=== PATIENT | female | born 1960 | race Caucasian/White ===

== ENCOUNTER 2022-06-12 10:00 | Outpatient (RCR) | payer OTHER, SELFPAY | END 2023-04-29 23:59 | disposition home or self-care (01) | PROVIDERS: PCP Nurse Practitioner Family; Visit Provider Orthopaedic Surgery | DX: M65.311 Trigger thumb, right thumb (principal); M54.32 Sciatica, left side; E66.9 Obesity, unspecified; Z51.89 Encounter for other specified aftercare | CPT/HCPCS: 97033; 97035; 97140; 97165 ==

== ENCOUNTER 2022-07-21 06:36 | Day surgery (SDC) | payer OTHER, SELFPAY ==
[2022-07-21 06:50] VITALS: BMI 41.3
[2022-07-21] MEDS: CEFAZOLIN 2 GM INJ IVP (06:59)
[2022-07-21 07:04] VITALS: BP 149/77; PULSE 63; RESP 16; TEMP 36.7; O2SAT 98
[2022-07-21 07:24] VITALS: BP 185/84; PULSE 64; RESP 16; O2SAT 97
[2022-07-21] MEDS: BUPIVACAINE 0.5% 30 ML INJECTION (07:25)
[2022-07-21] MEDS: lidocaine HCL 2 % MULTIDOSE 20 ML VIAL INJECTION (07:25)
[2022-07-21 07:30] VITALS: BP 175/85; PULSE 68; RESP 16; O2SAT 97
[2022-07-21 07:35] VITALS: BP 178/86; PULSE 76; RESP 16; O2SAT 97
[2022-07-21 07:40] VITALS: BP 173/83; PULSE 68; RESP 16; O2SAT 97
--- NOTE | 2022-07-21 07:49 | PM.ORPRC ---
Procedure Note Date of procedure: 07/21/22 Procedure: Preop diagnosis: Right thumb stenosing tenosynovitis Postop diagnosis: Right thumb stenosing tenosynovitis Procedure: Right thumb A1 mk release Anesthesia: Local Surgeon: John Guo MD special education educational assistant: Mona Chou PA-C EBL: 0 mL Complications: None Specimens: None Drains: None Preoperative antibiotics: None Indications: The patient has a history of right thumb painful catching and locking. Despite appropriate non operative management including flexor tendon sheath corticosteroid injections they continue to have symptoms. Operative intervention was recommended. The risks, benefits alternatives and expected outcomes were discussed in detail. These included but were not limited to: Infection, bleeding, injury to blood vessel or nerve, venous thromboembolism. All questions were answered to their satisfaction. The patient was placed supine on the operating room table. Local anesthesia was established with 0.5% Marcaine without epinephrine and 2% lidocaine without epinephrine. The hand was prepped and draped in usual sterile fashion. The limb was elevated the forearm pneumatic tourniquet was inflated to 250 mm of mercury. A transverse incision was made in the MP flexion crease of the thumb. Subcutaneous dissection was taken through the palmar fascia to the flexor tendons with the tenotomy scissors. The A1 mk was released with the 15 blade and the tenotomy scissors. The edges of the A1 mk were sharply resected. Active flexion and extension of the thumb shows no catching or locking, no bowstringing of the flexor tendons. The wound was closed with interrupted nylon sutures. A dry dressing was applied the tourniquet was released. Sponge and needle counts were correct x 2. The patient tolerated the procedure well, there were no apparent complications. They were sent to same day surgery in satisfactory condition. Plan: Use of the hand as tolerates. Discontinue the intraoperative dressing on postoperative day 3 and may get the wound wet as tolerates. Follow up in the office in 2 weeks for a wound check and suture removal.
[2022-07-21 07:57] VITALS: BP 146/70; PULSE 63; RESP 18; TEMP 37; O2SAT 96
== END 2022-07-21 08:05 | disposition home or self-care (01) ==
PROVIDERS: PCP Nurse Practitioner Family; Visit Provider Orthopaedic Surgery
PROC: (CPT 26055; principal; 2022-07-21 07:30)
DX: M65.841 Other synovitis and tenosynovitis, right hand (principal)
CPT/HCPCS: 26055; J0690; J3490

== ENCOUNTER 2022-07-27 09:08 | Outpatient (CLI) | payer OTHER, SELFPAY ==
--- OUTSIDE RECORDS SUMMARY | 2022-07-27 09:20 | XMS_ITS | Encounter Summary ---
:1960 Author Organization [facility] Address [address] [place] [address] Care Team Providers Name Role Phone None, Pcp Primary Care Provider Unavailable Encounter Details Date Type Department Care Team Description 12/19/2020 [facility] Family Medicine [address] [place] [address] Social History Tobacco Use Types Packs/Day Years Used Date Never Smoker Smokeless Tobacco: Never Used Alcohol Use Standard Drinks/Week Comments Not Asked 0 (1 standard drink = 0.6 oz pure alcoho l) Alcohol Habits Answer Date Recorded How often do you have a drink containing alcohol? Never 03/22/2020 How many drinks containing alcohol do you have on a typical Not asked day when you are drinking? How often do you have six or more drinks on one occasion? 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
--- OUTSIDE RECORDS SUMMARY | 2022-07-27 09:20 | XMS_ITS | Encounter Summary ---
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
--- OUTSIDE RECORDS SUMMARY | 2022-07-27 09:20 | XMS_ITS | Clinical Summary ---
:1960 Author Organization [facility] [employer] [facility] [place] [address] Care Team Providers Name Role Phone Pcp, No Primary Care Provider Unavailable Allergies Active Allergy Reactions Severity Noted Date Comments Amoxicillin-Pot Hives 12/10/2015 per external records Clavulanate Aspirin Other - Describe In 08/25/2019 Risk for Interaction Comment Field Risk for Inter action Lisinopril Cough 12/10/2015 Nsaids (Non-Steroidal Other - Describe In 07/11/2016 Anti-Inflammatory Drug) Comment Field Medications Medication Sig Dispensed Refills Start Date End Date Status atorvastatin Take 10 mg by mouth. 0 11/25/2019 Active (LIPITOR) 10 mg tablet chlorthalidone Take 50 mg by mouth. 0 11/25/2019 Active (HYGROTON) 50 mg tablet cholecalciferol Take 1 Cap by mouth. 0 2015 Active (VITAMIN D3) 2,000 unit capsule glipiZIDE (GLUCOTROL) Take 10 mg by mouth. 0 016 Active 10 mg tablet Insulin Admin 0 02/12/2015 Activ e Supplies inpn Insulin Admin 0 02/12/2015 Activ e Supplies (INPEN, FOR NOVOLOG OR FIASP,) inpn insulin aspart U-100 Inject 5 units 0 11/25/2019 Active (NOVOLOG FLEXPEN subcutaneously with U-100 INSULIN) 100 lunch and dinner unit/mL (3 mL) solution for injection insulin glargine Inject 38 Units 0 07/14/2019 Active (LANTUS) 100 unit/mL subcutaneous. injection insulin glargine 40 units at bedtime 0 04/14/2015 Active (LANTUS SOLOSTAR PEN; BASAGLAR KWIKPEN) 100 unit/mL (3 mL) pen loratadine (CLARITIN) if needed 0 Active 5 mg/5 mL liquid LORazepam (ATIVAN) Take 0.5 mg by 0 03/06/2020 Active 0.5 mg tab mouth. metoprolol succinate Take 50 mg by mouth. 0 08/08/20 16 Active (TOPROL XL) 50 mg sustained-release tablet SITagliptin (JANUVIA) Take 50 mg by mouth. 0 016 Active 50 mg tablet traZODone (DESYREL) Take 50 mg by mouth. 0 0 Active 50 mg tablet Active Problems No known active problems Social History Tobacco Use Types Packs/Day Years Used Date Former Smoker Cigarettes 0.25 2 Smokeless Tobacco: Never Used Tobacco Cessation: Counseling Given: Yes Alcohol Use Standard Drinks/Week Comments Not Currently 0 (1 standard drink = 0.6 oz pure alcoho l) Sex Assigned at Date Recorded Not on file Obstetrics History Last Filed Vital Signs Vital Sign Reading Time Taken Comments Blood Pressure 110/72 05/27/2020 10:44 AM CDT Pulse 57 05/27/2020 10:44 AM CDT Temperature 37.1 ??C (98.8 ??F) 03/29/2020 9:12 AM CDT Respiratory Rate 18 03/29/2020 9:12 AM CDT Oxygen Saturation 95% 05/27/2020 10:44 AM CDT Inhaled Oxygen Concentration - - Weight 96.1 kg (211 lb 12.8 oz) 05/27/2020 10:44 AM CDT Height - - Body Mass Index - - Plan of Treatment Health Maintenance Due Date Last Done Comments COVID-19 vaccine series (#1) 06/20/1962 Tdap 1972 Depression screening for age 12+ 1973 BMI (ht and wt on same day) for 12/19/1979 age 18+ Hepatitis C screening for age 0312/19/1979 18-79 Tetanus booster 1981 Colonoscopy through age 75 2006 Lipids for age 45-75 2006 Mammogram for age 45-75 2006 Zoster (shingles) series for age 0312/19/2011 50+ (1 of 2) Influenza for age 50-64 06/11/2022 Pap test for age 21-65 06/20/2023 06/20/2020, 06/20/2020, 03/23/2014, Additional history exists Results Not on filefrom Last 3 Months Insurance Payer Benefit Plan / Subscriber ID Effective Dates Phone Addre ss Type Group [employer] [id number] 2017-Present [address] [place] [address] Care Teams Anglesmith Relationship Specialty Start Date End Date Pcp, No PCP - General 03/29/20 .
--- OUTSIDE RECORDS SUMMARY | 2022-07-27 09:20 | XMS_ITS | Encounter Summary ---
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
--- OUTSIDE RECORDS SUMMARY | 2022-07-27 09:20 | XMS_ITS | Clinical Summary ---
:1960 Author Organization [facility] Address [address] [place] [address] Care Team Providers Name Role Phone Libby Cheema MD Primary Care Provider Allergies Active Allergy Reactions Severity Noted Date Comments Adhesive Tape Amoxicillin-Pot Clavulanate Aspirin 08/25/2019 Risk for Intera ction Ibuprofen Lisinopril Promethazine 11/21/2018 Clopidogrel 08/25/2019 Risk for Intera ction Medications Medication Sig Dispensed Refills Start Date End Date Status loratadine (CLARITIN) 5 if needed 0 Active MG/5ML syrup Blood Glucose Use to as directed to check blood sugar once daily. 1 kit 0 11/23/2018 Active Monitoring Suppl Dispense Accucheck Betsey Plus; E11.9 (ACCU-CHEK BETSEY PLUS) w/Device kitIndications: Type 2 diabetes mellitus without complication, with long-term current use of insulin (HCC) acetaminophen (TYLENOL) Take 1-2 tablets 0 6 Active 500 MG tablet by mouth every 6 (six) hours if needed cholecalciferol Take 1 capsule by 0 2015 Active (VITAMIN D-3) 2000 mouth daily units capsule Injection Device for 0 02/12/2015 Active Insulin (INPEN [id number]) device insulin glargine Inject 38 Units 40 mL 3 07/14/2019 Active (LANTUS) 100 UNIT/ML under the skin injectionIndications: every night Type 2 diabetes mellitus without complication, with long-term current use of insulin (HCC) Additional Information Patient taking differently: 40 Units Subcutaneous Nightly, Reported on 03/22/2020 insulin aspart (NovoLOG Inject 5 units 15 pen 3 11/25/2019 Active FLEXPEN) 100 UNIT/ML subcutaneously with injectionIndications: Type 2 lunch and dinner diabetes mellitus without complication, with long-term current use of insulin ([facility]) atorvastatin (LIPITOR) 10 MG Take 1 tablet (10 mg 90 tablet 3 11/25/2019 Active tabletIndications: total) by mouth 1 Hyperlipoproteinemia (one) time each day glipiZIDE (GLUCOTROL) 10 MG Take 1 tablet (10 mg 180 tablet 3 11/25/2019 Active tabletIndications: Type 2 total) by mouth twice diabetes mellitus without a day complication, with long-term current use of insulin ([facility]) metoprolol succinate XL Take 1 tablet (25 mg 90 tablet 3 11/25 Active (TOPROL-XL) 25 MG 24 hr total) by mouth 1 tabletIndications: Essential (one) time each day (primary) hypertension amLODIPine (NORVASC) 5 MG Take 1 tablet (5 mg 90 tablet 3 11/11 Active tabletIndications: Essential total) by mouth 1 hypertension (one) time each day SITagliptin (JANUVIA) 50 MG Take 1 tablet (50 mg 90 tablet 3 0 11/25/2019 Active tabletIndications: Type 2 total) by mouth 1 diabetes mellitus without (one) time each day complication, with long-term current use of insulin ([facility]) chlorthalidone (HYGROTON) 50 Take 1 tablet (50 mg 90 tablet 3 11/25/2019 Active MG tabletIndications: total) by mouth 1 Hypertension, unspecified type (one) time each day Additional Information Patient taking differently: 25 mg Oral Daily, Reported on 03/22/2020 metoprolol succinate XL Take 1 tablet (50 mg 90 tablet 3 11/25 Active (TOPROL-XL) 50 MG 24 hr total) by mouth 1 tabletIndications: Essential (one) time each day (primary) hypertension Do not crush or chew, in addition to the 25 mg daily, for a total of 75 mg daily traZODone (DESYREL) 50 MG Take 1 tablet (50 mg 180 tablet 3 Active tabletIndications: Insomnia, total) by mouth every unspecified type night Take 1 to 2 tabs by mouth as needed for sleep insulin glargine (LANTUS) 100 40 units at bedtime 12 pen 3 11/27/2019 Active UNIT/ML injectionIndications: Type 2 diabetes mellitus without complication, with long-term current use of insulin ([facility]) Insulin Pen Needle (Pen Use to check blood 200 each 3 020 Active [place]) 31G X 5 MM sugar twice daily. BD miscIndications: Type 2 Ultra-Fine III Mini diabetes mellitus without Pen Needle Dx: E11.9 complication, with long-term current use of insulin (HCC) Active Problems Problem Noted Date Localized edema 03/04/2017 Insomnia 01/05/2017 Anxiety disorder 08/13/2016 Major depressive disorder, single episode 08/13/2016 Hypertensive chronic kidney disease with stage 1 throu gh stage 4 chronic 03/17/2016 kidney disease, or unspecified chronic kidney disease Type 2 diabetes mellitus without complications 016 Disorder of kidney and ureter 11/14/2015 Essential (primary) hypertension 08/12/2015 Cervicalgia 05/10/2015 Hyperlipoproteinemia 05/01/2014 Encounters Date Type Specialty Care Team Description 07/04/2022 Immunization Family Medicine from Last 3 Months Immunizations Name Administration Dates Next Due COVID-19, mRNA, LNP-S, PF, 30mcg/0.3mL 08/05/2021, 1, 12/19/2020 dose Pfizer COVID-19, mRNA, LNP-S, bivalent booster 07/04/2022 12 yr and older, PF, 30mcg/0.3mL dose (pfizer) Flu Vaccine 50-64yrs Flublok (Egg Free) 08/02/2019 Influenza 6mo-49yrs Quad Preservative 08/20/2017, 08/09/2016 Free IM Pneumococcal Conjugate 13-Valent 02/08/2018 Pneumococcal Polysaccharide 10/06/2016 TD Preservative Free 07/14/2005 Tdap 08/12/2015 Family History Medical History Relation Comments Asthma Father Hypertension Maternal Grandmother Diabetes Mother Heart disease Mother Hypertension Mother Hypertension Sister Relation Status Comments Daughter 1 Alive Daughter 2 Alive Daughter 3 Alive Father Maternal Grandmother Mother Sister Son Alive Social History Tobacco Use Types Packs/Day Years [...] at Date Recorded 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 Vital Signs Vital Sign Reading Time Taken Comments Blood Pressure 114/64 03/22/2020 1:58 PM CDT Pulse 70 03/22/2020 1:58 PM CDT Temperature 36.8 ??C (98.3 ??F) 03/22/2020 1:58 PM CDT Respiratory Rate 12 03/22/2020 1:58 PM CDT Oxygen Saturation 95% 03/22/2020 1:58 PM CDT Inhaled Oxygen Concentration - - Weight 96.3 kg (212 lb 3.2 oz) 03/22/2020 1:58 PM CDT Height 161 cm (5' 3.39) 11/23/2019 8:41 AM TIMBER DEADENER Body Mass Index 37.13 11/23/2019 8:41 AM TIMBER DEADENER Plan of Treatment Health Maintenance Due Date Last Done Comments CT Colonography 1961 FIT-DNA 1960 Sigmoidoscopy 1960 iFOBT 1960 Pneumococcal Vaccine: 10/06/2021 02/08/2018, 10/06/2016 Pediatrics (0 to 5 Years) and At-Risk Patients (6 to 64 Years) (3 - PPSV23 or PCV20) Mammogram 05/27/2022 05/27/2021, 02/09/2019, 02/09/2019 COVID-19 Vaccine (4 - 11/03/2022 07/04/2022, 08/05/2021, Booster for Pfizer series) 01/09/2021, Additiona l history exists Colonoscopy 07/22/2026 07/22/2016 Colorectal Cancer Screening 07/22/2026 Pap Smear Discontinued 03/23/2014 Zoster Vaccines Completed 11/12/2020, 06/20/2020 HPV Vaccines Aged Out No longer fang caceres based on patient 's age to complete this topic Insurance Payer Benefit Plan / Subscriber ID Effective Phone Address T chip Group Dates [facility] [id number] 2017-Prese [address] [place] [address] Care Teams Pbx Supervisor Relationship Specialty Start Date End Date Libby Cheema MD PCP - General 06/09/[address] [place] [address]
--- OUTSIDE RECORDS SUMMARY | 2022-07-27 09:20 | XMS_ITS | Encounter Summary ---
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
--- OUTSIDE RECORDS SUMMARY | 2022-07-27 09:20 | XMS_ITS | Encounter Summary ---
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
--- OUTSIDE RECORDS SUMMARY | 2022-07-27 09:20 | XMS_ITS | Encounter Summary ---
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 I would not make any further attempts to reach her and since we have not filled prescriptions for her for what looks like almost 2 years we can certainly drop her from our diabetic registry. AL OFFICE ASSISTANT Telephone Encounter - Lili Lucero RN - 12/17/2021 4:44 PM CST Please send letter. AL OFFICE ASSISTANT Telephone Encounter - Francisca Mejia - 12/17/2021 3:37 PM CST Multiple attempts to reach patient for requested appt. Please send letter if necessary, AL OFFICE ASSISTANT Telephone Encounter - Francisca Mejia - 11/05/2021 3:38 PM CST Left message requesting to schedule an OV for diabetic review/labs and also asked if she has taken her cares elsewhere so we can update her chart. AL OFFICE ASSISTANT Telephone Encounter - Francisca Mejia - 08/22/2021 10:49 AM CST Left message regarding diabetic review with fasting labs, also asked if Pt is still coming here or if she has taken her cares elsewhere. AL OFFICE ASSISTANT Telephone Encounter - Shila Mitchell - 07/24/2021 2:28 PM CDT Left message. Telephone Encounter - Lili Lucero RN - 07/22/2021 9:46 AM CDT Patient for diabetic recheck with fasting labs. If she is seeing a provider at [facility] please change PCP. documented in this encounter Plan of Treatment Not on filedocumented as of this encounter Visit Diagnoses Not on filedocumented in this encounter Care Teams De Alcholizer Relationship Specialty Start Date End Date Libby Cheema MD PCP - General 06/09/[address] [place] [address] documented as of this encounter
--- OUTSIDE RECORDS SUMMARY | 2022-07-27 09:20 | XMS_ITS | Encounter Summary ---
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
--- OUTSIDE RECORDS SUMMARY | 2022-07-27 09:20 | XMS_ITS | Encounter Summary ---
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
--- OUTSIDE RECORDS SUMMARY | 2022-07-27 09:21 | XMS_ITS | Encounter Summary ---
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 Reviewed screening questionnaire with patient prior to administration. VIS given. documented in this encounter Plan of Treatment Not on filedocumented as of this encounter Visit Diagnoses Not on filedocumented in this encounter Care Teams Biotechnologist Relationship Specialty Start Date End Date Yesenia Sood APRN, SIGNAL MECHANIC PCP - General 05/17/18 06/17/20 [address] [place] [address] documented as of this encounter
--- OUTSIDE RECORDS SUMMARY | 2022-07-27 09:21 | XMS_ITS | Encounter Summary ---
:1960 Author Organization [facility] Address [address] [place] [address] Care Team Providers Name Role Phone Yesenia Sood DELI DEPARTMENT MANAGER, FLARE MAKER Primary Care Provider [phone] Reason for Visit Reason Onset Date Comments Med Refill 05/22/2019 Encounter Details Date Type Department Care Team Description 05/22/2019 Refill Gabriels Yesenia Sood Hyperlipoproteinemia (Primar y [address] M, DELI DEPARTMENT MANAGER, FLARE MAKER Dx) [place], [place] [address] [facility] [address] [address] [place], [place] [phone] [id number] Social History Tobacco Use Types Packs/Day Years [...] at Date Recorded 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 atorvastatin (LIPITOR) 10 MG tablet 90 tablet 3 Sig: Take 1 tablet (10 mg total) by mouth 1 (one) time each day Labs: Component Latest Ref Rng & Units 11/14/2018 Cholesterol 0 - 199 mg/dL 138 Triglycerides 0 - 149 mg/dL 192 (A) HDL 40 - 60 mg/dL 33 (A) LDL Calculated 0 - 99 mg/dL 67 Vitals: BP Readings from Last 2 Encounters: 03/13/19 136/84 02/16/19 (!) 140/96 documented in this encounter Plan of Treatment Not on filedocumented as of this encounter Visit Diagnoses Diagnosis Hyperlipoproteinemia - Primary Other and unspecified hyperlipidemia documented in this encounter Care Teams Fur Dressing Supervisor Relationship Specialty Start Date End Date Yesenia Sood, DELI DEPARTMENT MANAGER, FLARE MAKER PCP - General 05/17/18 06/17/20 [address] [facility] [place] [id number] documented as of this encounter
--- OUTSIDE RECORDS SUMMARY | 2022-07-27 09:21 | XMS_ITS | Encounter Summary ---
:1960 Author Organization [facility] Address [address] [place] [address] Care Team Providers Name Role Phone Yesenia Sood APRN, POULTRY INSEMINATOR Primary Care Provider [phone] Reason for Visit Reason Comments Eye Problem right eye blurry strated tod ay. 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 encounter Last Filed Vital Signs Vital Sign Reading Time Taken Comments Blood Pressure 140/80 09/06/2019 2:16 PM ACOUSTICAL INSTALLER Pulse 60 09/06/2019 2:16 PM ACOUSTICAL INSTALLER Temperature 36.1 ??C (96.9 ??F) 09/06/2019 2:16 PM ACOUSTICAL INSTALLER Respiratory Rate 16 09/06/2019 2:16 PM ACOUSTICAL INSTALLER Oxygen Saturation - - Inhaled Oxygen Concentration - - Weight 99.7 kg (219 lb 14.4 oz) 09/06/2019 2:16 PM ACOUSTICAL INSTALLER Height - - Body Mass Index 38.01 07/07/2019 7:22 AM CDT documented in this encounter Progress Notes Libby Cheema MD - 09/06/2019 2:00 PM CST Estab Patient Visit Subjective Patient ID: Angeles Morales is a 58 y.o. female. HPI the patient is here today because of her right eye irritation that came on this morning. The patient is our 58-year-old patient who interestingly enough a few years ago she had a significant reaction in both her eyes after she had handled some beetles and then touched her eyes and then both eyes right greater than left apparently swelled up so much in the conjunctival area that she went into the emergency room and she did get some eyedrops for that she does not recall what they were. She recovered without any particular problems. Now when she got up this morning she is not sure maybe she touched something or did something but her right eye started to just swell and become a little irritated in the right conjunctival area and then she was concerned the same thing was going to happen again so she comes in for evaluation She does not wear contacts she does have glasses she does not have a lot of systemic allergies necessarily but some contact or seasonal allergies. She says the eye does not hurt it has not been draining it has not changed her vision. Review of Systems Objective Physical Exam she is alert she appears comfortable her vital signs are stable with a blood pressure 140/80 pulse is 60 temp 96.9 and her current weight is about 220 pounds Her left eye is basically perfectly normal Her right eye the pupils equal reactive and extraocular muscle movement is intact does not appear brody painful and does not cause her pain will be sent a bright light into it. There is however in the right conjunctival area the sclera there is a little increased in blood vasculature as well as may bejust a little early because of swelling or almost slight bubble effect. The overall assessment he has acute mild conjunctival irritation with a little bit of swelling of the sclera probably an allergy reaction. Plan at this time he is We have started her on Visine eyedrops as well as an oral antihistamine Benadryl and we also wrote aprescription for Patanol that she could sampler pickup if she would like to use this would be much more potent for allergy symptoms. She can use cool compresses and can take it easy and wash her hands before touching her eyes. Certainly if she gets worse she can sampler pickup the Patanol keep that on hand and use that obviously gets really worse she will go to the ER. Assessment/Plan Diagnoses and all orders for this visit: Red eye - olopatadine (PATANOL) 0.1 % ophthalmic solution; Administer 1 drop into affected eye(s) 2 (two) times a day if needed for allergies Again overall assessment is right eye secondary to most likely a contact allergy response and the plan was as stated. 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
--- OUTSIDE RECORDS SUMMARY | 2022-07-27 09:21 | XMS_ITS | Encounter Summary ---
:1960 Author Organization [facility] Address [address] [place] [address] Care Team Providers Name Role Phone Yesenia Sood APRN, CNP Primary Care Provider [phone] Encounter Details Date Type Department Care Team Description 02/28/2019 Telephone Pelon Brewster Yesenia Sood, [address] [place] [address] [address] [facility] [address] [phone] [place], [place] [address] Social History Tobacco Use Types Packs/Day Years Used Date Never Smoker Smokeless Tobacco: Never Used Alcohol Use Standard Drinks/Week Comments No 0 (1 standard drink = 0.6 oz [...] at Date Recorded 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 A letter has been sent she will consider and notify me after checking with her insurance if she would like to proceed with this recommendation. documented in this encounter Plan of Treatment Not on filedocumented as of this encounter Visit Diagnoses Not on filedocumented in this encounter Care Teams Derrick Follower Relationship Specialty Start Date End Date Yesenia Sood APRN, SPECIMEN TRANSPORTER PCP - General 05/17/18 06/17/20 [address] [facility] [place] [address] documented as of this encounter
--- OUTSIDE RECORDS SUMMARY | 2022-07-27 09:21 | XMS_ITS | Encounter Summary ---
:1960 Author Organization [facility] Address [address] [place] [address] Care Team Providers Name Role Phone Yesenia Sood FIELD ATTENDANT, PERSONAL COMPUTER NETWORK ENGINEER Primary Care Provider [phone] Reason for Visit Reason Comments Diabetes CHECK Encounter Details Date Type Department Care Team Description 11/23/2019 Office Visit [facility] Yesenia Sood Type 2 diabetes mellitus wit hout complication, with long-term current use of insulin (HCC) (Primary Dx); [address] M, FIELD ATTENDANT, PERSONAL COMPUTER NETWORK ENGINEER Essential hypertension; [place] [address] Lumbar back pain with radiculopathy affe cting left lower extremity; [address] [place], [place] Hyperlipoproteinemia; [phone] [id number] Hypertension, unspecified type; [phone] Essential (prim yudy) hypertension; (Work) Insomnia, unspe cified type; Chronic kidney disease, unspecified CKD stage; Rash; History of thro mbocytopenia Social History Tobacco Use Types Packs/Day Years [...] at Date Recorded Female 2020 3:13 PM DRUG SAFETY ASSOCIATE documented as of this encounter Last Filed Vital Signs Vital Sign Reading Time Taken Comments Blood Pressure 148/86 11/23/2019 8:41 AM DRUG SAFETY ASSOCIATE Pulse 66 11/23/2019 8:41 AM DRUG SAFETY ASSOCIATE Temperature 36.2 ??C (97.2 ??F) 11/23/2019 8:41 AM DRUG SAFETY ASSOCIATE Respiratory Rate 18 11/23/2019 8:41 AM DRUG SAFETY ASSOCIATE Oxygen Saturation 98% 11/23/2019 8:41 AM DRUG SAFETY ASSOCIATE Inhaled Oxygen Concentration - - Weight 98.9 kg (218 lb 0.6 oz) 11/23/2019 8:41 AM DRUG SAFETY ASSOCIATE Height 161 cm (5' 3.39) 11/23/2019 8:41 AM DRUG SAFETY ASSOCIATE Body Mass Index 38.15 11/23/2019 8:41 AM DRUG SAFETY ASSOCIATE documented in this encounter Patient Instructions Patient InstructionsChwhitney Sood APRN, MINESH - 11/23/2019 8:40 AM DRUG SAFETY ASSOCIATE Will call with the lab and xray results May increase your diuretic No other changes Lamisil cream to the feet and good hydration SAFETY ASSOCIATE documented in this encounter Progress Notes Yesenia Sood APRN, CNP - 11/23/2019 8:40 AM CST Estab Patient Visit Subjective Patient ID: Angeles Morales is a 58 y.o. female presenting for the following concerns. Chief Complaint Patient presents with ??? Diabetes CHECK HPI: The patient is a pleasant 58 y.o. year old female presenting ambulatory to the clinical setting to review her type 2 diabetes and to have fasting labs drawn. The patient's past medical history includesseasonal allergies, type 2 diabetes, hyperlipidemia, hypertension, insomnia, and stage III kidney disease after an episode of acute injury. ?? The patient is currently on glipizide 10 mg twice daily, Januvia 50 mg daily, Lantus 40 units at bedtime, and NovoLog 5 units at lunch and supper for her type 2 diabetes. The patient's last hemoglobin A1c on 02/09/2019 was 7.3. The patient denies any side effects from her medication, but did have a hypoglycemic episode this morning when her blood sugar was 78 and she felt jittery. The patient has been monitoring her fasting morning blood sugars, which have been decreasing over the last 3 months, has them recorded on her accu check machine, with the following values, in the last 7 days, 99 average, inthe last 14 days, 104 average, in the last 30 days, 118 average, and in the last 90 days, 138 average. The patient is currently on Norvasc 5 mg daily, chlorthalidone 25 mg daily and metoprolol 75 mg daily for her hypertension. The patient had previously been on Norvasc 10 mg daily, which was decreasedto 5 mg daily, because she developed lower extremity swelling. The patient reports since decreasing the Norvasc her lower extremity edema has resolved. No chest pain, pressure, palpitations, peripheraledema, lightheadedness, dizziness, presyncope, syncope and/or cardiac murmurs. The patient is not anACE or ARB, because of her renal disease. The patient is not on a baby aspirin because of her low platelets. The patient is on Lipitor 10 mg daily for hyperlipidemia, which she tolerates. The patient reports she has a diabetic retinal eye exam every fall, and believes her last one was July,. No numbness or tingling in her feet. The patient is not consistently exercising. The patient has previously received diabetic and nutritional education. The patient has a history of insomnia and is on Trazadone 50-100 mg at bedtime, which is effective. The patient reports she developed lower back pain with radiculopathy symptoms down her left lower extremity at the end of August, after blowing leaves, without any specific injury. She recalls hours after blowing the leaves, she developed her discomfort, which radiates into her left buttock, and initially she experienced numbness, tingling, and pain down her lower extremity from her buttock, to above her ankle and through her foot. The patient reports her numbness resolved, the tingling and pain persists to a lesser degree, and now only in her left sciatic area, and above her lateral ankle, with resolution of symptoms in her foot. The patient reports her symptoms limit her activities of daily living. She describes her pain as sharp, at times stabbing, and at one point it felt like her ankle wasfractured, which has resolved. The patient has been under the care of Dr. Mccabe, chiropractor, since August, who initially felt her pelvis was causing her discomfort, but now has concerns she has disc involvement. The patient continues to be under his care, does the recommended exercise, stretches, ices her lower back, and has been taking Tylenol, with improvement in her symptoms, but not complete relief. The patient is not able to take NSAIDs, because of her renal dysfunction. The patient reports she had similar lower back pain, symptoms in the past, which seemed to resolve quicker. ?? The patient had a mammogram on 02/09/2019, due in Feb, 2020. The patient had a colonoscopy on 07/22/2016, with a follow-up recommendation of 10 years. The patient had a hysterectomy in 2015, and had her ovaries removed. The patient had a Prevnar on 02/08/18,??Pneumovax on 10/06/2016,??and??Tdap on 08/12/2015. ?? ROS: GENERAL: See HPI. The patient has a history of insomnia and is on Trazadone 50- 100 mg at bedtime, which is effective. INTEGUMENTARY: See HPI. The patient does have a rash on her feet, uncertain when this started, and has had a difficult time performing foot care, since she developed back pain. EYES: See HPI. The patient was evaluated for eye inflammation on August 12, received eye drops, andthe reaction was possible from an beetle, the second time she has developed a reaction in her eyes, after being in contact with an beetle. The patient has a yearly diabetic eye exam. CARDIOVASCULAR: See HPI. The patient has a longstanding history of hypertension currently on metoprolol 75 mg daily, chlorthalidone 25 mg daily, and Norvasc 5 mg daily, without adequate blood pressure control today. The patient was on Norvasc 10 mg daily, but when she developed lower extremity edema, the dose was decreased to 5 mg daily, with resolution of her edema. No chest pain, pressure, palpitations, peripheral edema, lightheadedness, dizziness, presyncope, syncope and/or cardiac murmurs. RESPIRATORY: See HPI. The patient feels it harder to breath when she lays down when doing her back exercises. No cough, asthma and/or wheezing. No sleep apnea after having a sleep study in September. BREASTS: See HPI. The patient's mammogram was on 02/09/2019. GASTROINTESTINAL: See HPI. The patient's last colonoscopy was on 07/22/2016, with a recommendation of repeating one in 10 years. ENDOCRINOLOGY: See HPI. The patient has type 2 diabetes with blood sugar control on her current treatment plan. NEUROLOGICAL: See HPI. The patient is experiencing lumbar back pain, left sciatic pain, with tingling and discomfort above her left ankle, since August, with improvement in her symptoms. The following portions of the patient's chart were reviewed in this encounter and updated as appropriate: Tobacco Allergies Meds Problems Med Hx Surg Hx Fam Hx Current Outpatient Medications: ??? acetaminophen (TYLENOL) 500 MG tablet, Take 1-2 tablets by mouth every 6 (six) hours if needed, Disp: , Rfl: ??? amLODIPine (NORVASC) 5 MG tablet, Take 1 tablet (5 mg total) by mouth 1 (one) time each day, Disp: 90 tablet, Rfl: 3 ??? atorvastatin (LIPITOR) 10 MG tablet, Take 1 tablet (10 mg total) by mouth 1 (one) time each day,Disp: 90 tablet, Rfl: 3 ??? Blood Glucose Monitoring Suppl (ACCU-CHEK BETSEY PLUS) w/Device kit, Use to as directed to check blood sugar once daily. Dispense Accucheck Betsey Plus; E11.9, Disp: 1 kit, Rfl: 0 ??? chlorthalidone (HYGROTON) 50 MG tablet, Take 1 tablet (50 mg total) by mouth 1 (one) time each day, Disp: 90 tablet, Rfl: 3 ??? cholecalciferol (VITAMIN D-3) 2000 units capsule, Take 1 capsule by mouth daily, Disp: , Rfl: ??? glipiZIDE (GLUCOTROL) 10 MG tablet, Take 1 tablet (10 mg total) by mouth twice a day, Disp: 180 tablet, Rfl: 3 ??? Injection Device for Insulin (INPEN 163-LNHD-PUFP) device, , Disp: , Rfl: ??? insulin aspart (NovoLOG FLEXPEN) 100 UNIT/ML injection, Inject 5 units subcutaneously with lunchand dinner, Disp: 15 pen, Rfl: 3 ??? insulin glargine (LANTUS) 100 UNIT/ML injection, Inject 38 Units under the skin every night, Disp: 40 mL, Rfl: 3 ??? Insulin Pen Needle (PEN NEEDLES) 31G X 5 MM misc, Use to check blood sugar twice daily. BD Ultra-Fine III Mini Pen Needle Dx: E11.9, Disp: 200 each, Rfl: 3 ??? loratadine (CLARITIN) 5 MG/5ML syrup, if needed, Disp: , Rfl: ??? metoprolol succinate XL (TOPROL-XL) 25 MG 24 hr tablet, Take 1 tablet (25 mg total) by mouth 1 (one) time each day, Disp: 90 tablet, Rfl: 3 ??? metoprolol succinate XL (TOPROL-XL) 50 MG 24 hr tablet, Take 1 tablet (50 mg total) by mouth 1 (one) time each day Do not crush or chew, in addition to the 25 mg daily, for a total of 75 mg daily, Disp: 90 tablet, Rfl: 3 ??? SITagliptin (JANUVIA) 50 MG tablet, Take 1 tablet (50 mg total) by mouth 1 (one) time each day, Disp: 90 tablet, Rfl: 3 ??? traZODone (DESYREL) 50 MG tablet, Take 1 tablet (50 mg total) by mouth every night Take 1 to 2 tabs by mouth as needed for sleep, Disp: 180 tablet, Rfl: 3 ??? insulin glargine (LANTUS) 100 UNIT/ML injection, 40 units at bedtime, Disp: 12 pen, Rfl: 3 Objective Visit Vitals BP 148/86 (BP Location: Left arm, Patient Position: Sitting) Pulse 66 Temp 36.2 ??C (97.2 ??F) (Temporal) Resp 18 Ht 1.61 m (5' 3.39) Wt 98.9 kg (218 lb 0.6 oz) SpO2 98% BMI 38.15 kg/m?? Smoking Status Never Smoker BSA 2.1 m?? GENERAL: The patient is alert, orientated, and in no apparent distress. INTEGUMENTARY: Examining the patient's feet, there area dry patches of skin, along the soles of her feet bilaterally, mid lateral area, greater on the right than the left, the patches are approximatelythe size of a quarter, a tiny break in the skin on the left foot, none on the right foot. CARDIOVASCULAR: Normal heart rate and rhythm. No murmur. No peripheral edema. Positive peripheral pulses, x4. Blood pressure rechecked for 140/80. RESPIRATORY: Lungs are clear, bilaterally. No wheezing. MUSCULOSKELETAL: The patient moves freely about the room. Examining the lumbar back, no swelling, erythema, bruising, deformity, or spasming. The patient has discomfort when palpating over the left midsciatic area. Positive straight leg raise on the left. Negative straight leg raise on the right. Patellar and Achilles tendon reflexes equal bilaterally. Slight weakness with flexion and extension, andwith plantar and dorsiflexion, in her left lower extremity, when comparing to her right lower extremity. DIAGNOSTICS: Comprehensive metabolic panel, hemoglobin A1c, lipid panel, TSH, urine microalbumin, and CBC with differential. Lumbar back xray, disc space narrowing, official radiology report is pending. Assessment/Plan Angeles was seen today for diabetes. Diagnoses and all orders for this visit: Type 2 diabetes mellitus without complication, with long-term current use of insulin (HCC) (Primary) - Comprehensive metabolic panel; Future - Hemoglobin A1c; Future - Lipid panel; Future - TSH; Future - Microalbumin/Creatinine Ratio; Future - insulin aspart (NovoLOG FLEXPEN) 100 UNIT/ML injection; Inject 5 units subcutaneously with lunch and dinner - glipiZIDE (GLUCOTROL) 10 MG tablet; Take 1 tablet (10 mg total) by mouth twice a day - SITagliptin (JANUVIA) 50 MG tablet; Take 1 tablet (50 mg total) by mouth 1 (one) time each day - Hemoglobin A1c; Future Essential hypertension - Comprehensive metabolic panel; Future - amLODIPine (NORVASC) 5 MG tablet; Take 1 tablet (5 mg total) by mouth 1 (one) time each day Lumbar back pain with radiculopathy affecting left lower extremity - X-ray Lumbar Spine 2-3 Views; Future - X-ray Lumbar Spine 2-3 Views Hyperlipoproteinemia - atorvastatin (LIPITOR) 10 MG tablet; Take 1 tablet (10 mg total) by mouth 1 (one) time each day Hypertension, unspecified type - chlorthalidone (HYGROTON) 50 MG tablet; Take 1 tablet (50 mg total) by mouth 1 (one) time each day Essential (primary) hypertension - metoprolol succinate XL (TOPROL-XL) 25 MG 24 hr tablet; Take 1 tablet (25 mg total) by mouth 1 (one) time each day - metoprolol succinate XL (TOPROL-XL) 50 MG 24 hr tablet; Take 1 tablet (50 mg total) by mouth 1 (one) time each day Do not crush or chew, in addition to the 25 mg daily, for a total of 75 mg daily - Basic metabolic panel; Future Insomnia, unspecified type - traZODone (DESYREL) 50 MG tablet; Take 1 tablet (50 mg total) by mouth every night Take 1 to 2 tabs by mouth as needed for sleep Chronic kidney disease, unspecified CKD stage - Basic metabolic panel; Future Rash History of thrombocytopenia - CBC Branch Off w/Diff; Future Other orders - Cancel: insulin glargine (LANTUS) 100 UNIT/ML injection; Inject 38 Units under the skin every night Discussed the plan of care with the patient. The patient will continue Metoprolol XL 75 mg daily, Norvasc 5 mg daily, and chlorthalidone 25 mg daily until her lab results have been reviewed, and may consider increasing the chlorthalidone to 50 mg daily, for better blood pressure control; with the blood pressure goal of 120/70. The patient will continue Lantus 40 units daily, NovoLog 5 units with lunch and supper, Januvia 50 mg daily, and glipizide 10 mg twice daily for type 2 diabetes, and Lipitor 10 mg daily for hyperlipidemia. Will not start aspirin therapy because of her low platelet count. The patient is not on an PAM, or ARB, which was discontinued because of renal failure. The patient is a nonsmoker. The patient had the Prevnar on 02/08/18,??Pneumovax on 10/06/2016, and Tdap on 08/12/2015. Thepatient will continue Tylenol 1000 mg 3 times a day and rn homecare. The patient is aware we can consider a lumbar back MRI to evaluate her symptoms further, which she will discuss with her chiropractor. The patient should apply an [id number] antifungal cream and good hydration on the lateral aspects of her feet, where she does have a rash, which has been difficult for the patient to assess and care, because of her back pain, but would encourage her to help her. Renewed the Trazodone 50 mg tablet, 1-2 tablets at bedtime for insomnia. The patient will be notified of her lab results. The patient agrees and understands this plan of care. ADDENDUM: The patient will increase her chlorthalidone to 50 mg daily and repeat a BMP in one month.The patient's medications were renewed x one year. Yesenia Sood APRN, MINESH SAFETY ASSOCIATE documented in this encounter Plan of Treatment Not on filedocumented as of this encounter Procedures Procedure Name Priority Date/Time Associated Diagnosis Comme nts XR LUMBAR SPINE Routine 11/23/2019 9:42 AM Lumbar back pain wi th Results for this 2-3 VIEWS DRUG SAFETY ASSOCIATE radiculopathy procedure are in affecting left lower the res ults extremity section. documented in this encounter Results X-ray Lumbar Spine 2-3 Views (11/23/2019 9:42 AM DRUG SAFETY ASSOCIATE) Anatomical Region Laterality Modality Spine, L-spine Radiographic Imaging Specimen (Source) Anatomical Collection Method Collection Time Re ceived Time Location / / Volume Laterality 11/23/2019 9:42 AM DRUG SAFETY ASSOCIATE Impressions 11/23/2019 9:51 AM DRUG SAFETY ASSOCIATE IMPRESSION: LUMBAR SPINE 2-3 VIEWS There is disc space narrowing with endpl ate spurring, which is mild to moderate at L2-3 and L5-S1 and mild at L 3-4 and L4-5. ??No fracture, malalignment or lytic or blastic lesion. Narrative 11/23/2019 9:51 AM DRUG SAFETY ASSOCIATE INDICATION: lumbar back pain COMPARISON: None available Procedure Note Krytsa Juares MD - 11/23/2019 INDICATION: lumbar back pain COMPARISON: None available IMPRESSION: LUMBAR SPINE 2-3 VIEWS There is disc space narrowing with endpl ate spurring, which is mild to moderate at L2-3 and L5-S1 and mild at L 3-4 and L4-5. No fracture, malalignment or lytic or blastic lesion. Yesenia Sood APRN, PERSONAL COMPUTER NETWORK ENGINEER IMG XR PROCEDURES TSH (11/23/2019 9:25 AM DRUG SAFETY ASSOCIATE) P athologist Signature TSH, Sensitive 2.98 0.46 - 11/24/2019 [facility] L 4.68 mIU/L 2:06 PM DRUG SAFETY ASSOCIATE [facility] Comment: The results from this or any other diagn ostic test should be used and interpreted only in the context of the overall clinical picture. Biotin levels in serum remain elevated f or up to 24 hours after oral or intravenous biotin adminis tration and may interfere with this assay to produce unr eliable results. Heterophilic antibodies in serum or plas ma samples may cause interference in immunoassays. ??Exposure to animal antigens, either in the environment or as part of treatment or imaging procedures, may have circulating anti-an imal antibodies present. These antibodies may interfere with the assay reagents to produce unreliable results. ??Results which are inconsistent with clinical observations indicate the need for additional testing. Specimen Anatomical Collection Method Collection Time Receive d Time (Source) Location / / Volume Laterality Blood 11/23/2019 9:25 AM 0 DRUG SAFETY ASSOCIATE 12:37 PM DRUG SAFETY ASSOCIATE Yesenia Sood APRN, PERSONAL COMPUTER NETWORK ENGINEER LAB BLOOD ORDERABLES Performing Organization Address City/State/ZIP Code Phon e Number [facility] [address] [place] [address] (ABNORMAL) Lipid panel (11/23/2019 9:25 AM DRUG SAFETY ASSOCIATE) athologist Signature Cholesterol 135 0 - 199 11/23/2019 [facility] mg/dL 12:49 PM [facility] Comment: Recommended by National Cholesterol Education Program (ATP III) -------- Cholesterol Ranges -------- <200 ? Desirable 200-239 ? Borderline high >=240 ? High Triglycerides 169 (A) 0 - 149 mg/dL 11/23/2019 12:49 PM [facility] Comment: -------- TRIG Ranges -------- <150 ?Normal 150-199 ? Borderline high 200-499 ? High >=500 ? Very high HDL 36 (A) 40 - 60 mg/dL 11/23/2019 12:49 PM [facility] Comment: -------- HDL Ranges -------- <40 ?Low 40-59 ?Normal >=60 ? Optimal LDL Calculated 65 0 - 99 mg/dL 11/23/2019 12:49 PM T [facility] Comment: -------- LDL Ranges -------- <100 ? Optimal 100-129 ?Near optimal/above op timal 130-159 ?Borderline high 160-189 ?High >=190 ?Very high Fasting? Yes 11/23/2019 9:31 AM DRUG SAFETY ASSOCIATE [facility] Specimen Anatomical Collection Method Collection Time Receive d Time (Source) Location / / Volume Laterality Blood 11/23/2019 9:25 AM 0 DRUG SAFETY ASSOCIATE 12:27 PM DRUG SAFETY ASSOCIATE Yesenia Sood APRN, PERSONAL COMPUTER NETWORK ENGINEER LAB BLOOD ORDERABLES Performing Organization Address City/[facility]/ZIP Code Phon e Number [facility] [address] [place] [address] (ABNORMAL) Hemoglobin A1c (11/23/2019 9:25 AM DRUG SAFETY ASSOCIATE) Analysis Performed At Patho logist Time Signature Hemoglobin A1C 8.4 (H) 4.0 - 5.6 11/23/2019 [place] % A1C 2:05 PM [facility] Comment: Reference Range 4.0-5.6% is for non-preg nant adults >=18 yrs <5.6% ? Non-Diabetic 5.7-6.4% ??Increased risk of Diabetes >=6.5% ?Indicative of Diabetes <7.0% ? ADA goal for glycemic contro l Methodology may not detect all hemoglobi n variants which can affect A1c results. Method certified by National Glycohemoglobin Standardization Program. Specimen Anatomical Collection Method Collection Time Receive d Time (Source) Location / / Volume Laterality Blood 11/23/2019 9:25 AM 0 DRUG SAFETY ASSOCIATE 12:27 PM DRUG SAFETY ASSOCIATE Yesenia Sood APRN, PERSONAL COMPUTER NETWORK ENGINEER LAB BLOOD ORDERABLES Performing Organization Address City/State/ZIP Code Phon e Number [facility] [address] [place] [address] (ABNORMAL) CBC Branch Off w/Diff (11/23/2019 9:25 AM DRUG SAFETY ASSOCIATE) Patholo gist Method Time Signature WBC 8.2 3.5 - 10.5 11/23/2019 [facility] K/uL 9:36 AM DRUG SAFETY ASSOCIATE [place] RBC 5.50 (H) 3.90 - 11/23/2019 [facility] 5.00 M/uL 9:36 AM DRUG SAFETY ASSOCIATE [place] Hemoglobin 14.6 12.0 - 11/23/2019 [facility] 15.5 g/dL 9:36 AM DRUG SAFETY ASSOCIATE [place] Hematocrit 47.1 (H) 35.0 - 11/23/2019 [facility] 44.0 % 9:36 AM DRUG SAFETY ASSOCIATE [place] Platelets 117 (L) 150 - 450 11/23/2019 [facility] K/uL 9:36 AM DRUG SAFETY ASSOCIATE [place] MCV 85.6 81.6 - 11/23/2019 [facility] 98.3 fL 9:36 AM DRUG SAFETY ASSOCIATE [place] MCH 26.5 26.0 - 11/23/2019 [facility] 32.0 pg 9:36 AM DRUG SAFETY ASSOCIATE [place] MCHC 31.0 (L) 32.0 - 11/23/2019 [facility] 36.0 g/dL 9:36 AM DRUG SAFETY ASSOCIATE [place] RDW 12.1 11.9 - 11/23/2019 [facility] 15.5 % 9:36 AM DRUG SAFETY ASSOCIATE [place] Lymphocytes % 13.6 (L) 18.0 - 11/23/2019 [facility] 45.0 % 9:36 AM DRUG SAFETY ASSOCIATE [place] Mid-size Cells 7.8 3.3 - 10.1 11/23/2019 [facility] % 9:36 AM DRUG SAFETY ASSOCIATE [place] Granulocytes/Flip 78.6 (H) 45.8 - 11/23/2019 [facility] trophils 73.7 % 9:36 AM DRUG SAFETY ASSOCIATE [place] Lymphocytes 1.1 0.9 - 2.9 11/23/2019 [facility] Absolute K/uL 9:36 AM DRUG SAFETY ASSOCIATE [place] MIDS Absolute 0.6 0.2 - 0.8 11/23/2019 [facility] K/uL 9:36 AM DRUG SAFETY ASSOCIATE [place] Granulocytes/Flip 6.5 2.1 - 8.7 11/23/2019 [facility] trophils K/uL 9:36 AM DRUG SAFETY ASSOCIATE [place] Absolute Specimen Anatomical Collection Method Collection Time Receive d Time (Source) Location / / Volume Laterality Blood 11/23/2019 9:25 AM 0 9:30 DRUG SAFETY ASSOCIATE AM DRUG SAFETY ASSOCIATE Yesenia Sood FIELD ATTENDANT, PERSONAL COMPUTER NETWORK ENGINEER LAB BLOOD ORDERABLES Performing Organization Address City/State/ZIP Code Phon e Number [facility] [address] [place] [address] (ABNORMAL) Comprehensive metabolic panel (11/23/2019 9:25 AM [facility] gist Method Time Signature Total Protein 8.1 6.3 - 8.2 11/23/2019 [facility] g/dL 12:49 PM [facility] Albumin, Serum 4.8 3.5 - 5.0 11/23/2019 [facility] g/dL 12:49 PM [facility] Total Bilirubin 1.0 0.1 - 1.0 11/23/2019 [facility] mg/dL 12:49 PM [facility] AST 26 8 - 43 U/L 11/23/2019 [facility] 12:49 PM [facility] Alkaline 64 38 - 128 11/23/2019 [facility] Phosphatase U/L 12:49 PM [facility] ALT (SGPT) 19 0 - 34 U/L 11/23/2019 [facility] 12:49 PM [facility] Sodium 141 135 - 145 11/23/2019 [facility] mEq/L 12:49 PM [facility] Potassium 3.8 3.5 - 5.1 11/23/2019 [facility] mEq/L 12:49 PM [facility] [facility] Chloride 99 98 - 107 11/23/2019 JENNIFER mEq/L 12:49 PM [facility] CO2 30 (H) 22 - 29 11/23/2019 JENNIFER mmol/L 12:49 PM [facility] BUN 33 (H) 5 - 25 11/23/2019 JENNIFER mg/dL 12:49 PM [facility] Creatinine 1.9 (H) 0.4 - 1.2 11/23/2019 JENNIFER mg/dL 12:49 PM [facility] Glucose 129 (H) 70 - 100 11/23/2019 JENNIFER mg/dL 12:49 PM [facility] Calcium, Total,S 10.2 8.4 - 10.2 11/23/2019 JENNIFER mg/dL 12:49 PM [facility] Specimen Anatomical Collection Method Collection Time Receive d Time (Source) Location / / Volume Laterality Blood 11/23/2019 9:25 AM 0 DRUG SAFETY ASSOCIATE 12:27 PM DRUG SAFETY ASSOCIATE Yesenia Sood FIELD ATTENDANT, PERSONAL COMPUTER NETWORK ENGINEER LAB BLOOD ORDERABLES Performing Organization Address City/State/ZIP Code Phon e Number [id number] [address] [place] [address] documented in this encounter Visit Diagnoses Diagnosis Type 2 diabetes mellitus without complic ation, with long-term current use of insulin (HCC) - Primary Essential hypertension Unspecified essential hypertension Lumbar back pain with radiculopathy affe cting left lower extremity Hyperlipoproteinemia Other and unspecified hyperlipidemia Hypertension, unspecified type Essential (primary) hypertension Unspecified essential hypertension Insomnia, unspecified type Chronic kidney disease, unspecified CKD stage Rash Rash and other nonspecific skin eruption History of thrombocytopenia documented in this encounter Care Teams Information Technology Manager Relationship Specialty Start Date End Date Yesenia Sood APRN, PERSONAL COMPUTER NETWORK ENGINEER PCP - General 05/17/18 06/17/[address] [place] [address] [place] [id number] documented as of this encounter
--- OUTSIDE RECORDS SUMMARY | 2022-07-27 09:21 | XMS_ITS | Encounter Summary ---
:1960 Author Organization [facility] Address [address] [place] [address] Care Team Providers Name Role Phone Unavailable Primary Care Provider Unavailable Reason for Visit Reason Onset Date Comments Med Refill 08/07/2020 Encounter Details Date Type Department Care Team Description 08/07/2020 Refill Toyah Libby Cheema, Type 2 diabetes mellitus [address] [facility] MD without complication, [place], [place] [phone] [facility] [address] [place] with long-term current [phone] [place], [place] use of insu lucrecia ([facility]) [id number] Social History Tobacco Use Types Packs/Day Years [...] at Date Recorded 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 Telephone Encounter - Anabella Chen MA - 08/07/2020 3:58 PM CDT Last visit in provider department: 03/22/2020 Last visit requested medication was discussed: 11/23/2019 Upcoming appointment with provider: none Last Rx: 07/14/19 #200, 3 refills Requested Prescriptions Pending Prescriptions Disp Refills ??? Insulin Pen Needle (Pen [place]) 31G X 5 MM misc 200 each 0 Sig: Use to check blood sugar twice daily. BD Ultra-Fine III Mini Pen Needle Dx: E11.9 Vitals: BP Readings from Last 2 Encounters: 03/22/20 114/64 11/23/19 148/86 documented in this encounter Plan of Treatment Not on filedocumented as of this encounter Visit Diagnoses Diagnosis Type 2 diabetes mellitus without complic ation, with long-term current use of insulin (HCC) documented in this encounter
--- OUTSIDE RECORDS SUMMARY | 2022-07-27 09:21 | XMS_ITS | Encounter Summary ---
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 documented as of this encounter Last Filed Vital Signs Vital Sign Reading Time Taken Comments Blood Pressure 170/90 09/18/2019 10:17 AM MEDIA CLERK Pulse 70 09/18/2019 10:17 AM MEDIA CLERK Temperature - - Respiratory Rate 18 09/18/2019 10:17 AM MEDIA CLERK Oxygen Saturation 97% 09/18/2019 10:17 AM MEDIA CLERK Inhaled Oxygen Concentration - - Weight 99.6 kg (219 lb 9.3 oz) 09/18/2019 10:17 AM MEDIA CLERK Height - - Body Mass Index 37.95 07/07/2019 7:22 AM CDT documented in this encounter Progress Notes Deanne Dejesus APRN, CNP - 09/18/2019 10:30 AM CST Estab Patient Visit Subjective Patient ID: Angeles Morales is a 58 y.o. female. Patient presented to [facility] on 07/07/2019 with problematic, socially disruptive snoring for the past 5 years as well as an abnormal pulse oximetry study. The patient was experiencing poor quality, nonrestorative sleep resulting in subsequent fatigue and daytime sleepiness. The patient was concerned she may have sleep apnea. At that time although she did have an increased probability for mild to moderate obstructive sleep apnea, there was not a compelling urgency for PSG to be completed immediately. It was recommended the patient have a sleep study done within the next 1-6 months. She proceeded with an in-laboratory polysomnogram which was performed on 09/11/2019, and she presents today for the results of the PSG. No chief complaint on file. HPI The following portions of the patient's chart were reviewed in this encounter and updated as appropriate: Review of Systems [place] Sleepiness Scale 02/01 Objective Physical Exam Visit Vitals BP 170/90 (BP Location: Right arm, Patient Position: Sitting) Pulse 70 Resp 18 Wt 99.6 kg (219 lb 9.3 oz) SpO2 97% BMI 37.95 kg/m?? Smoking Status Never Smoker BSA 2.12 m?? Assessment Summary: 1. Diagnostic Summary: a. Total Sleep Time = 5.6 hours (334.5 minutes) b. Sleep Process = poor sleep process marked by significant fragmentation and punctuated by episodesof Wake After Sleep Onset of variable, at times prolonged, duration. a. RE: patient administered her own Trazodone 100 mg at 21:55 hours. c. Sleep Position = Right lateral and supine positions were noted during sleep. d. % Sleep Efficiency = 72.9% e. % Stage REM = 5.8% a. Stage REM sleep was expressed with normal muscle atonia. b. REM Supine Time = 5.0 minutes c. REM Latency = 201.5 minutes f. Sleep Related Hypoxemia was not present. g. Of unclear clinical significance, episodic periodic limb movements were observed with a resultantcalculated PLM Index of 1.8/hour. Of course, clinical correlation is indicated. h. For complete review of diagnostic and therapeutic data please refer to PSG raw data. 2. Diagnosis- Other respiratory symptoms and conditions (Primary Snoring) i. Mild AMBIKA (AHI=5-15 events/hour) ii. Moderate AMBIKA (AHI=15-30 events/hour) iii. Severe AMBIKA (AHI=Above 30 events/hour) 1. RE: AHI-Apnea/Hypopnea Index b. AHI 4.3 events/hour c. RDI 7.4 events/hour d. COMMENTS: Snoring intensity was documented to range from light - moderate - loud Assessment/Plan Diagnoses and all orders for this visit: Snoring Recommendation: 1. Follow-up with [facility] to discuss the results of this PSG and to determine the most appropriate clinical disposition in a patient-centered manner. 2. Would refrain from operating machinery or driving a motor vehicle if experiencing problematic fatigue or excessive sleepiness 3. Consider weight loss management, as this may play a role in snoring and obstructive sleep apnea. 4. This PSG did not reveal AMBIKA. 1. There is no indication for therapy with CPAP. 5. If treatment for problematic snoring is desired, considerations (alone or in combination) may include: 1. Referral to a Dental Sleep specialist for assessment for a possible Mandibular Advancement Device 2. Referral to ENT for assessment for possible elective upper airway surgical intervention 3. Positional therapy, where appropriate, to avoid sleeping in a supine position 4. Referral to DME for fitting with Nasal Valves - Information on all of her options were presented to Ms. Morales. She will go home and after carefulconsideration, she will call us if we can be of any assistance in referrals to those options. A CLERK documented in this encounter Plan of Treatment Not on filedocumented as of this encounter Visit Diagnoses Diagnosis Snoring - Primary Other dyspnea and respiratory abnormalit y documented in this encounter Care Teams Couples Therapist Relationship Specialty Start Date End Date Yesenia Sood APRN, TRIAGE CLINICIAN PCP - General 05/17/18 06/17/20 [address] [facility] [place] [address] documented as of this encounter
--- OUTSIDE RECORDS SUMMARY | 2022-07-27 09:21 | XMS_ITS | Encounter Summary ---
:1960 Author Organization [facility] Address [address] [place] [address] Care Team Providers Name Role Phone Yesenia Sood LAUNDRY ROUTE DRIVER, THERMOFORMING OPERATOR Primary Care Provider [phone] Reason for Visit Reason Onset Date Comments test strips 01/18/2020 Encounter Details Date Type Department Care Team Description 01/18/2020 Telephone [place] Yesenia Sood, test strips [address] LAUNDRY ROUTE DRIVER, THERMOFORMING OPERATOR [place], [place] [address] [facility] [address] [phone] [place], [place] [address] Social History Tobacco Use [...] at Date Recorded 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 Telephone Encounter - Ce Obando LPN - 01/18/2020 4:20 PM CDT Please fax to [facility] Telephone Encounter - Ce Obando LPN - 01/18/2020 4:00 PM CDT Test strips pending To [facility] [place] documented in this encounter Plan of Treatment Not on filedocumented as of this encounter Visit Diagnoses Diagnosis Type 2 diabetes mellitus without complic ation, with long-term current use of insulin (HCC) - Primary documented in this encounter Care Teams Cloth Sponger Relationship Specialty Start Date End Date Yesenia Sood, LAUNDRY ROUTE DRIVER, THERMOFORMING OPERATOR PCP - General 05/17/18 06/17/20 100 [facility] [place] [id number] documented as of this encounter
--- OUTSIDE RECORDS SUMMARY | 2022-07-27 09:21 | XMS_ITS | Encounter Summary ---
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 of 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 encounter Last Filed Vital Signs Vital Sign Reading Time Taken Comments Blood Pressure 136/84 03/13/2019 1:27 PM CDT Pulse 68 03/13/2019 1:27 PM CDT Temperature 37.1 ??C (98.7 ??F) 03/13/2019 1:27 PM CDT Respiratory Rate 18 03/13/2019 1:27 PM CDT Oxygen Saturation 96% 03/13/2019 1:27 PM CDT Inhaled Oxygen Concentration - - Weight 99.4 kg (219 lb 2.2 oz) 03/13/2019 1:27 PM CDT Height 162 cm (5' 3.78) 03/13/2019 1:27 PM CDT Body Mass Index 37.87 03/13/2019 1:27 PM CDT documented in this encounter Patient Instructions Patient InstructionsChwhitney Sood APRN, CNP - 03/13/2019 1:20 PM CDT Antibiotic as directed documented in this encounter Progress Notes Yesenia Sood APRN, CNP - 03/13/2019 1:20 PM CDT Estab Patient Visit Subjective Patient ID: Angeles Morales is a 58 y.o. female presenting for the following concerns. Chief Complaint Patient presents with ??? Cough 03/08/18 onset ??? Fatigue HPI: The patient is a pleasant 58-year-old female presenting ambulatory to the clinical setting today with a productive cough of green phlegm with associated wheezing and dyspnea for the past 5 days, which is not improving. The patient reports her cough is keeping her awake, and increasing her fatigue. Thepatient has had nasal congestion, nasal drainage clear in color. The patient reports she has had bilateral ear discomfort not necessarily pain. She reports she has experienced headache discomfort. The patient has felt chilled, but no fevers. The patient reports she initially had throat discomfort which resolved after 3 days. She reports having loose stools on Wednesday, 2 days ago, which resolved. Thepatient has type 2 diabetes, and her morning fasting blood sugars have been elevated, ranging between 180-230 since she became ill. She reports this morning her blood sugar was 127. The patient reportsher blood sugars were well controlled prior to this illness. The patient is taking [id number] cough medication and is uncertain if this is contributing to her elevated blood sugars. The patient and her are leaving for [place] next Wednesday, in 1 week, and will be gone for 2 weeks. The patient reports her encouraged her to be evaluated before leaving on her trip. Non-smoker. ROS: GENERAL: No fever, but she has experienced chills. The patient is awake at night from coughing, which is increasing her fatigue level. EARS: The patient has had bilateral ear discomfort but not necessarily pain per se. NOSE: See HPI. The patient has had nasal congestion and nasal drainage clear in color. CARDIOVASCULAR: The patient reports her lower extremity edema has since resolved. RESPIRATORY: The patient is inquiring about proceeding with a formal sleep study which was previously discussed. ENDOCRINOLOGY: See HPI. The patient has type 2 diabetes, with morning fasting blood sugars as high as 180-230 since she became ill, this morning 127. NEUROLOGICAL: See HPI. The patient has been experiencing a headache. The following portions of the patient's chart were reviewed in this encounter and updated as appropriate: Tobacco Allergies Meds Problems Med Hx Surg Hx Fam Hx Soc Hx Objective Visit Vitals BP 136/84 Pulse 68 Temp 37.1 ??C (98.7 ??F) (Tympanic) Resp 18 Ht 1.62 m (5' 3.78) Wt 99.4 kg (219 lb 2.2 oz) SpO2 96% BMI 37.87 kg/m?? Smoking Status Never Smoker BSA 2.11 m?? GENERAL: The patient is alert, orientated, and in no apparent distress. HEENT: Head normocephalic. Eyes - pupils round and reactive to light, glossy in appearance. Ears - normal canals, normal, pearly jacobo TMs bilaterally with evidence of fluid behind the tympanic membranes. Throat - normal oropharynx. Uvula rises midline. No erythema. Neck - Supple. No cervical or posterior lymphadenopathy. CARDIOVASCULAR: Normal heart rate and rhythm. No murmur. No peripheral edema. RESPIRATORY: The patient has scattered rhonchi in her right mid to distal lower lung field, which improved with a cough; however, there remains to be a decreased breath sounds in the right base when compared to the left base. The patient had a coarse cough during the clinical visit at times loose in nature, and at other times dry. Oxygen level 96% on room air. DIAGNOSTICS: Discussed doing a chest x-ray which the patient declined at this time. Assessment/Plan Angeles was seen today for cough and fatigue. Diagnoses and all orders for this visit: Cough (Primary) - azithromycin (ZITHROMAX) 250 MG tablet; Take 2 tabs (500 mg) by mouth today, than 1 daily for 4 days. - guaiFENesin-codeine (ROBITUSSIN-AC) 100-10 MG/5ML liquid; Take 5-10 mL by mouth every 4 (four) hours if needed for cough - albuterol HFA (PROAIR HFA) 108 (90 Base) MCG/ACT inhaler; Inhale 2 puffs every 4 (four) hours if needed for wheezing or shortness of breath Abnormal breath sounds - azithromycin (ZITHROMAX) 250 MG tablet; Take 2 tabs (500 mg) by mouth today, than 1 daily for 4 days. - guaiFENesin-codeine (ROBITUSSIN-AC) 100-10 MG/5ML liquid; Take 5-10 mL by mouth every 4 (four) hours if needed for cough - albuterol HFA (PROAIR HFA) 108 (90 Base) MCG/ACT inhaler; Inhale 2 puffs every 4 (four) hours if needed for wheezing or shortness of breath Discussed the plan of care with the patient. Prescribed a Z-Rgean, guaifenesin with codeine, and an albuterol inhaler to take as directed. The patient will increase her NovoLog from 5 units at lunch and dinner, to 5 units with each meal, until her illness resolves, and continue to monitor her blood sugars. The patient agrees to notify me if her symptoms persistent or worsen. Will refer the patient to sleep speciality which was discussed during a previous visit. The patient agrees and understands this plan of care. Yesenia Sood APRN, BARREL BUILDER documented in this encounter Plan of Treatment Not on filedocumented as of this encounter Visit Diagnoses Diagnosis Cough - Primary Abnormal breath sounds Abnormal chest sounds documented in this encounter Care Teams Head Of Design Relationship Specialty Start Date End Date Yesenia Sood APRN, BARREL BUILDER PCP - General 05/17/18 06/17/20 100 [place] [address] documented as of this encounter
--- OUTSIDE RECORDS SUMMARY | 2022-07-27 09:21 | XMS_ITS | Encounter Summary ---
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 metoprolol succinate XL (TOPROL-XL) 25 MG 24 hr tablet 90 tablet 3 Sig: Take 1 tablet (25 mg total) by mouth 1 (one) time each day ??? metoprolol succinate XL (TOPROL-XL) 50 MG 24 hr tablet 90 tablet 3 Sig: Take 1 tablet (50 mg total) by mouth 1 (one) time each day Do not crush or chew, in addition to the 25 mg daily, for a total of 75 mg daily Labs: Component Latest Ref Rng & Units 02/09/2019 Fasting? Yes Sodium 135 - 145 mEq/L 142 Potassium 3.5 - 5.1 mEq/L 4.1 Chloride 98 - 107 mEq/L 106 CO2 22 - 29 mmol/L 27 BUN 5 - 25 mg/dL 22 Creatinine 0.4 - 1.2 mg/dL 1.6 (H) Glucose 70 - 100 mg/dL 158 (H) Calcium, Total,S 8.4 - 10.2 mg/dL 9.5 Component Latest Ref Rng & Units 11/14/2018 Microalbumin,mg/day 0.0 - 16.6 mg/L 29.5 (H) Creatinine, Urine mg/dL 154 Microalb/Creat Ratio 0 - 24 mg/g 19 Vitals: BP Readings from Last 2 Encounters: 03/13/19 136/84 02/16/19 (!) 140/96 documented in this encounter Plan of Treatment Not on filedocumented as of this encounter Visit Diagnoses Diagnosis Essential (primary) hypertension - Prima ry Unspecified essential hypertension documented in this encounter Care Teams Pot Feeder Relationship Specialty Start Date End Date Yesenia Sood APRN, SPORTS STATISTICIAN PCP - General 05/17/18 06/17/20 100 [facility] [place] [address] documented as of this encounter
--- OUTSIDE RECORDS SUMMARY | 2022-07-27 09:21 | XMS_ITS | Encounter Summary ---
:1960 Author Organization [facility] Address [address] [place] [address] Care Team Providers Name Role Phone Yesenia Sood APRN, CNP Primary Care Provider [phone] Reason for Referral Consultation (Routine) - Closed Specialty Diagnoses / Procedures Referred By Contact Refer red To Contact Diagnoses Thrombocytopenia (HCC) Yesenia Sood Mayo - Referrals MINESH HANSEN 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 Her blood pressure has elevated. The patient is on metoprolol 75 mg for hypertension she is not on chlorthalidone 25 mg daily which we will add to her medications at this time. The patient will repeat a BMP and blood pressure next week. The orders have been placed. We will refer the patient to hematology for low platelets consistent and persistent. Through [facility] in [place]. documented in this encounter Plan of Treatment Scheduled Referrals Name Type Priority Associated Diagnoses Order S [facility] External Outpatient Routine Thrombocytopenia (HCC ) Ordered: Referral Referral 02/16/2019 documented as of this encounter Visit Diagnoses Diagnosis Thrombocytopenia (HCC) - Primary Unspecified thrombocytopenia Essential hypertension Unspecified essential hypertension documented in this encounter Care Teams Assembly Machine Tender Relationship Specialty Start Date End Date Yesenia Sood APRN, MINESH PCP - General 05/17/18 06/17/[address] [place] [address] documented as of this encounter
--- OUTSIDE RECORDS SUMMARY | 2022-07-27 09:21 | XMS_ITS | Encounter Summary ---
:1960 Author Organization [facility] Address [address] [place] [address] Care Team Providers Name Role Phone Yesenia Sood SQL SSRS SSIS DEVELOPER, PURCHASE REQUEST EDITOR Primary Care Provider [phone] Reason for Visit Reason Onset Date Comments Med Refill 07/14/2019 Encounter Details Date Type Department Care Team Description 07/14/2019 Refill [place] Yesenia Sood, Type 2 diabetes [address] SQL SSRS SSIS DEVELOPER, PURCHASE REQUEST EDITOR mellitus without [place], [place] [address] complication, with [phone] [place], [place] [address] long-term current use of insul in ([facility]) Social History Tobacco Use Types Packs/Day Years [...] at Date Recorded 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 insulin glargine (LANTUS) 100 UNIT/ML injection 40 mL 0 Sig: Inject 38 Units under the skin every night ??? Insulin Pen Needle (PEN NEEDLES) 31G X 5 MM misc 200 each 3 Sig: Use to check blood sugar twice daily. BD Ultra-Fine III Mini Pen Needle Dx: E11.9 Labs: Component Latest Ref Rng & Units 02/09/2019 Hemoglobin A1C 4.0 - 5.6 % A1C 7.3 (H) Component Latest Ref Rng & Units 02/09/2019 Sodium 135 - 145 mEq/L 142 Potassium 3.5 - 5.1 mEq/L 4.1 Chloride 98 - 107 mEq/L 106 CO2 22 - 29 mmol/L 27 Creatinine 0.4 - 1.2 mg/dL 1.6 (H) BUN 5 - 25 mg/dL 22 Glucose 70 - 100 mg/dL 158 (H) Calcium, Total,S 8.4 - 10.2 mg/dL 9.5 Fasting? Yes Component Latest Ref Rng & Units 11/14/2018 Microalbumin,mg/day 0.0 - 16.6 mg/L 29.5 (H) Creatinine, Urine mg/dL 154 Microalb/Creat Ratio 0 - 24 mg/g 19 Component Latest Ref Rng & Units 11/14/2018 Cholesterol 0 - 199 mg/dL 138 Triglycerides 0 - 149 mg/dL 192 (A) HDL 40 - 60 mg/dL 33 (A) LDL Calculated 0 - 99 mg/dL 67 Pending A1c, C8 in chart Vitals: BP Readings from Last 2 Encounters: 07/07/19 120/72 07/07/19 120/72 documented in this encounter Plan of Treatment Not on filedocumented as of this encounter Visit Diagnoses Diagnosis Type 2 diabetes mellitus without complic ation, with long-term current use of insulin (HCC) documented in this encounter Care Teams Rewrite Editor Relationship Specialty Start Date End Date Yesenia Sood, SQL SSRS SSIS DEVELOPER, PURCHASE REQUEST EDITOR PCP - General 05/17/18 06/17/20 100 [facility] [place] [address] documented as of this encounter
--- OUTSIDE RECORDS SUMMARY | 2022-07-27 09:21 | XMS_ITS | Encounter Summary ---
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 RN approved dispensing pens per Yesenia Sood. Telephone Encounter - Francisca Mejia - 07/14/2019 11:16 AM CDT [facility] called with a question on her Lantus Rx. This called for the viles but the Pt has had the pens in the past. Please call the [place] prescription call center at [phone] to advise. documented in this encounter Plan of Treatment Not on filedocumented as of this encounter Visit Diagnoses Not on filedocumented in this encounter Care Teams Switching Operator Relationship Specialty Start Date End Date Yesenia Sood, TEACHER INSTRUMENTAL, LIME SLAKER PCP - General 05/17/18 06/17/20 100 [facility] [place] [address] documented as of this encounter
--- OUTSIDE RECORDS SUMMARY | 2022-07-27 09:21 | XMS_ITS | Encounter Summary ---
:[address] 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 Letter sent. documented in this encounter Plan of Treatment Not on filedocumented as of this encounter Visit Diagnoses Not on filedocumented in this encounter Care Teams Railroad Carman Relationship Specialty Start Date End Date Yesenia Sood APRN, CNP PCP - General 05/17/18 06/17/20 [address] [place] [address] documented as of this encounter
--- OUTSIDE RECORDS SUMMARY | 2022-07-27 09:21 | XMS_ITS | Encounter Summary ---
:[address] 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
--- OUTSIDE RECORDS SUMMARY | 2022-07-27 09:21 | XMS_ITS | Encounter Summary ---
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
--- OUTSIDE RECORDS SUMMARY | 2022-07-27 09:21 | XMS_ITS | Encounter Summary ---
:1960 Author Organization [facility] Address [address] [place] [address] Care Team Providers Name Role Phone Yesenia Sood APRN, MINESH Primary Care Provider [phone] Encounter Details Date Type Department Care Team Description 03/30/2019 Orders Only [place] Yesenia Sood, Type 2 diabetes [address] MIN[place] HANSEN mellitus without [place] [address] [facility] complication, with [address] [place] [address] long-term current use [phone] of insul in (HCC) (Primary Dx) Social History Tobacco Use Types Packs/Day Years [...] at Date 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
--- OUTSIDE RECORDS SUMMARY | 2022-07-27 09:21 | XMS_ITS | Encounter Summary ---
:1960 Author Organization [facility] Address [address] [place] [address] Care Team Providers Name Role Phone Yesenia Sood APRN, INSURANCE JOB TITLES Primary Care Provider Reason for Visit Reason Comments Consult abnormal oximetry Snoring Consultation (Routine) - Closed Specialty Diagnoses / Procedures Referred By Contact Refer red To Contact Sleep Medicine Diagnoses Essential (primary) hypertension Yesenia Sood APRN, INSURANCE JOB TITLES 100 [place] [address] Referral ID Status Reason Start Date Expiration Date Visits V isits Requested Authorized [id number] Closed Specialty 03/15/2019 03/15/2020 1 1 Services Required Encounter Details Date Type Department Care Team Description 07/07/2019 Office Visit Y 52 [facility] Pepe Rajput, Canceled (Provider: No [address] [address] [address] Elmer Morin MD Letter Needed) [place] [address] Social History Tobacco Use Types Packs/Day Years [...] at Date 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 as of this encounter Last Filed Vital Signs Vital Sign Reading Time Taken Comments Blood Pressure 120/72 07/07/2019 6:51 AM CDT Pulse 72 07/07/2019 6:51 AM CDT Temperature - - Respiratory Rate 18 07/07/2019 6:51 AM CDT Oxygen Saturation 98% 07/07/2019 6:51 AM CDT Inhaled Oxygen Concentration - - Weight 96.8 kg (213 lb 6.5 oz) 07/07/2019 6:51 AM CDT Height 162 cm (5' 3.78) 07/07/2019 6:51 AM CDT Body Mass Index 36.88 07/07/2019 6:51 AM CDT documented in this encounter Plan of Treatment Scheduled Referrals Name Type Priority Associated Diagnoses Order S [facility] Ambulatory referral Outpatient Referral Routine Essential (pérez betsey) Ordered: to Sleep Medicine hypertension 03/15/2019 documented as of this encounter Visit Diagnoses Not on filedocumented in this encounter Care Teams Mattress Specialist Relationship Specialty Start Date End Date Yesenia Sood APRN, INSURANCE JOB TITLES PCP - General 05/17/18 06/17/20 100 [place] [address] documented as of this encounter
--- OUTSIDE RECORDS SUMMARY | 2022-07-27 09:21 | XMS_ITS | Encounter Summary ---
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 SURGICAL PCU Telephone Encounter - Yesenia Sood APRN, MINESH - 11/28/2019 11:45 AM RN SURGICAL PCU Absolutely of course please let him know that we approve a 3-month supply. SURGICAL PCU Telephone Encounter - Lili Lucero RN - 11/28/2019 11:10 AM CST Please advise. SURGICAL PCU Telephone Encounter - Shila Mitchell - 11/28/2019 10:29 AM CST Elizabeth from [facility] is wondering if Alberto Sood would approve a 2 or 3 month supply of [place] the patient has a coupon and would save her money. Currently RX if for 1 month. Please call her at [phone]. SURGICAL PCU documented in this encounter Plan of Treatment Not on filedocumented as of this encounter Visit Diagnoses Not on filedocumented in this encounter Care Teams Lifts And Cranes Inspector Relationship Specialty Start Date End Date Yesenia Sood APRN, JEWELRY TECHNICIAN PCP - General 05/17/18 06/17/[address] [place] [address] [place] [address] documented as of this encounter
--- OUTSIDE RECORDS SUMMARY | 2022-07-27 09:21 | XMS_ITS | Encounter Summary ---
:1960 Author Organization [facility] Address [address] [place] [address] Care Team Providers Name Role Phone Yesenia Sood APRN, BOTTOM PAINTER Primary Care Provider [phone] Reason for Visit Reason Comments Follow-up MRI results Encounter Details Date Type Department Care Team Description 03/22/2020 Office Visit [place] Libby Cheema Osteoarthritis of spine [address] MD [place]zzie with radiculopathy, [place], [place] [address] lumbar [place] (Primary [address] [place]) [phone] [place] [address] Social History Tobacco Use Types Packs/Day Years [...] at Date Recorded 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 female. HPI the patient is here today for review of her recent MRI scan of her lumbar spine. The patient actually initially injured her back in August last year as she is doing yard work raking leaves and so forth. It bothered her for couple months but did not come in to be seen until about November and at that point in time she had a general diabetic evaluation and she stated that her backwas bothering her and that she was having some radicular symptoms into her left leg. She been seeinga chiropractor that time and her regular back x-ray showed minimal changes in the patient's diet andweight. Now she has had a period towards the end of February where she was really having a marked increase of pain up to 8 out of 10 with radiation down into her left lower extremity cause a little numbness pain and discomfort. She started to take some ibuprofen [id number] and she called us and we ordered anMRI scan and she comes in today to have it evaluated. Currently fortunately she is doing much better initially getting pain levels high as 8 out of 10 nowthey are about a 1 or 2 as long as she is careful. She is never had back problems before she is never had back surgery she is never had any epidural injections into her back. In reviewing her MRI scan it shows that she does indeed have degenerative disc disease at several levels and in fact at the time of this evaluation which was about 10 days ago it actually showed that 2different levels L3 and 4 has L4 and 5 on the left side she had some herniation with impingement of the left nerve roots at these areas. We then had a discussion regarding back pain disc injuries and so forth. Since she is actually doingmuch better at this time when I can refer any place her to have any else done at this time she did not require any medications no muscle relaxers no pain pills. We did discuss with her good basic mechanics that she should use as well as things that she should not do. We discussed the fact she should be picking up heavy objects she needs to bend her knees not her back she needs to protect herself if she coughs or sneezes just to be very careful about not slipping turning falling and so forth we have asked her to have her do more of the homework for a period of time this will really take 3 to 4 months to really fully heal and hopefully she does so. If it does not or if she has a recurrence of her radicular symptoms into her left leg she is to calllet us know and we will set her up for an epidural injection at that time. She apparently has a sister who has a bad neck who is just having the epidural injection and so the patient knows what they are. A copy of her examination was sent home with her and she continues to have chiropractic adjustments she can take a copy to them as well. Review of Systems Objective Physical Exam Assessment/Plan Diagnoses and all orders for this visit: Osteoarthritis of spine with radiculopathy, lumbar region assessment Degenerative joint disease of the lumbar spine with 2 discrete areas of herniated disc with nerve impingement. The plan is as stated. Patient will call us if she needs further help Counseled time was 20 minutes and all 20 minutes was spent in review of her symptoms review over history review of her MRI reports and discussion of ongoing management of her back symptoms and back issues. documented in this encounter Plan of Treatment Not on filedocumented as of this encounter Visit Diagnoses Diagnosis Osteoarthritis of spine with radiculopat hy, lumbar region - Primary documented in this encounter Care Teams Community Health Program Representative Relationship Specialty Start Date End Date Yesenia Sood, LEAN MANUFACTURING LEADER, BOTTOM PAINTER PCP - General 05/17/18 06/17/20 100 [place] [address] documented as of this encounter
--- OUTSIDE RECORDS SUMMARY | 2022-07-27 09:21 | XMS_ITS | Encounter Summary ---
:1960 Author Organization [facility] Address [address] [place] [address] Care Team Providers Name Role Phone Yesenia Sood APRN, CARPENTER FORM Primary Care Provider [phone] Reason for Referral Consultation (Routine) - Closed Specialty Diagnoses / Procedures Referred By Contact Refer red To Contact Diagnoses Chronic bilateral low back pain with left-sided sciatica Libby Cheema MD [facility] - [address] [place], [place] [address] [facility] [address] [place] [address] Fax: Referral ID Status Reason Start Date Expiration Date Visits Requ ested Visits Authorized [id number] Closed 03/11/2020 03/11/2021 1 1 Reason for Visit Reason Onset Date Comments MRI 03/07/2020 Encounter Details Date Type Department Care Team Description 03/07/2020 Telephone Libby Calderon MD MRI [address] [facility] [address] [place], [place] [address] [place], [place] [phone] (Wo rk) Social History Tobacco Use Types [...] at Date 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 Telephone Encounter - Lili Lucero RN - 03/11/2020 8:17 AM CDT Patient informed, please fax to [facility] in [place]. Telephone Encounter - Libby Cheema MD - 03/11/2020 7:57 AM CDT I have placed an order for Angeles to get a Lumbar MRI scan open sided via [facility]. Please copy and fax tothem and then call Angeles to let her know that she should be getting a phone call from [facility] in the next several days or so and if she doesn't then she should call us back. When [facility] contacts her she should let them know that she is requesting an open sided MRI scan. Telephone Encounter - Lili Lucero RN - 03/07/2020 1:59 PM CDT At patients last OV with alberto they discussed the need for possibly an MRI. The patient would like to move forward with getting an MRI of her Lumbar spine. She prefers to have an open sided machine. [facility] in [facility] has an open MRI that the patient is okay with going to. Fax #: [phone] referral. Telephone Encounter - Shila Mitchell - 03/07/2020 12:54 PM CDT Patient would like to proceed with MRI as Alberto Sood had recommended prior to Covid 19. She would like an open sided one. You can reach her at [phone]. documented in this encounter Plan of Treatment Scheduled Referrals Name Type Priority Associated Order Schedule Diagnoses Ambulatory External Outpatient Referral Routine Chronic bilate ral Ordered: Referral low back pain with 0 left-sided sciatica documented as of this encounter Visit Diagnoses Diagnosis Chronic bilateral low back pain with lef t-sided sciatica - Primary documented in this encounter Care Teams Manager Of Development Relationship Specialty Start Date End Date Yesenia Sood, ASSEMBLER FITTER, CARPENTER FORM PCP - General 05/17/18 06/17/20 100 [place] [address] documented as of this encounter
--- OUTSIDE RECORDS SUMMARY | 2022-07-27 09:21 | XMS_ITS | Encounter Summary ---
:1960 Author Organization [facility] Address [address] [place] [address] Care Team Providers Name Role Phone Yesenia Sood APRN, CNP Primary Care Provider [phone] Reason for Referral Consultation (Routine) - Closed Specialty Diagnoses / Procedures Referred By Contact Refer red To Contact Sleep Medicine Diagnoses Essential (primary) hypertension Yesenia Sood APRN, CNP [address] [place] [address] Referral ID Status Reason Start Date Expiration Date Visits V isits Requested Authorized [id number] Closed Specialty 03/15/2019 03/15/2020 1 1 Services Required Scheduling Instructions Staff from this department will contact the patient to schedule an appointment. 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 Plan of Treatment Scheduled Referrals Name Type Priority Associated Diagnoses Order S chedule Ambulatory referral Outpatient Referral Routine Essential (pérez betsey) Ordered: to Sleep Medicine hypertension 03/15/2019 documented as of this encounter Visit Diagnoses Diagnosis Essential (primary) hypertension - Prima ry Unspecified essential hypertension documented in this encounter Care Teams Competitive Shopper Relationship Specialty Start Date End Date Yesenia Sood, METAL SPINNER, RECREATION FACILITIES SUPERVISOR PCP - General 05/17/18 06/17/20 100 [place] [address] documented as of this encounter
--- OUTSIDE RECORDS SUMMARY | 2022-07-27 09:21 | XMS_ITS | Encounter Summary ---
:[address] 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 of insulin (HCC) Essential hypertension CBC BRANCH OFFICE Routine 11/23/2019 9:25 History of Results for this W/DIFF AM BIOLOGY RESEARCH ASSISTANT thrombocytopenia procedure a re in the results section. TSH Routine 11/23/2019 9:25 Type 2 diabetes Results f or this AM BIOLOGY RESEARCH ASSISTANT mellitus without procedure a re in complication, with the resul ts long-term current use sectio n. of insulin (HCC) HEMOGLOBIN A1C Routine 11/23/2019 9:25 Type 2 diabetes Results for this AM BIOLOGY RESEARCH ASSISTANT mellitus without procedure a re in complication, with the resul ts long-term current use sectio n. of insulin ([facility]) LIPID PANEL Routine 11/23/2019 9:25 Type 2 diabetes Results f or this AM BIOLOGY RESEARCH ASSISTANT mellitus without procedure a re in complication, with the resul ts long-term current use sectio n. of insulin ([facility]) COMPREHENSIVE Routine 11/23/2019 9:25 Type 2 diabetes Results for this METABOLIC PANEL AM BIOLOGY RESEARCH ASSISTANT mellitus without procedur e are in complication, with the resul ts long-term current use sectio n. of insulin ([facility]) Essential hypertension documented in this encounter Results (ABNORMAL) Glomerular filtration rate (GFR) (11/23/2019 9:25 AM BIOLOGY RESEARCH ASSISTANT) P athologist Signature GFR 27 (A) 11/23/2019 [facility] 12:49 PM [facility] 33 (A) 11/23/2019 [facility] Gambian GFR 12:49 PM [facility] Comment: GFR calculated from serum creatinine v alue Chronic Kidney Disease less than 60 mL/m in/1.73 m2 Kidney Failure less than 15 mL/min/1.73 m2 Note: effective 02/23/07 IDMS-Traceable MDRD Study Equation used. Specimen Anatomical Collection Method Collection Time Receive d Time (Source) Location / / Volume Laterality 11/23/2019 9:25 AM 0 9:25 BIOLOGY RESEARCH ASSISTANT AM BIOLOGY RESEARCH ASSISTANT Yesenia Sood APRN, VEST FINISHER LAB BLOOD ORDERABLES Performing Organization Address City/State/ZIP Code Phon e Number [facility] [address] [place] [id number] (ABNORMAL) Comprehensive metabolic panel (11/23/2019 9:25 AM BIOLOGY RESEARCH ASSISTANT) Patholo gist Method Time Signature Total Protein 8.1 6.3 - 8.2 11/23/2019 [facility] g/dL 12:49 PM [facility] Albumin, Serum 4.8 3.5 - 5.0 11/23/2019 [place] g/dL 12:49 PM [facility] Total Bilirubin 1.0 0.1 - 1.0 11/23/2019 [place] mg/dL 12:49 PM [facility] AST 26 8 - 43 U/L 11/23/2019 [facility] 12:49 PM [facility] Alkaline 64 38 - 128 11/23/2019 [place] Phosphatase U/L 12:49 PM [facility] ALT (SGPT) 19 0 - 34 U/L 11/23/2019 [facility] 12:49 PM [facility] Sodium 141 135 - 145 11/23/2019 [facility] mEq/L 12:49 PM [facility] Potassium 3.8 3.5 - 5.1 11/23/2019 [facility] mEq/L 12:49 PM [facility] Chloride 99 98 - 107 11/23/2019 [facility] mEq/L 12:49 PM [facility] CO2 30 (H) 22 - 29 11/23/2019 [place] mmol/L 12:49 PM [facility] BUN 33 (H) 5 - 25 11/23/2019 [facility] mg/dL 12:49 PM [facility] Creatinine 1.9 (H) 0.4 - 1.2 11/23/2019 [facility] mg/dL 12:49 PM [facility] Glucose 129 (H) 70 - 100 11/23/2019 [facility] mg/dL 12:49 PM [facility] Calcium, Total,S 10.2 8.4 - 10.2 11/23/2019 [facility] mg/dL 12:49 PM [facility] Specimen Anatomical Collection Method Collection Time Receive d Time (Source) Location / / Volume Laterality Blood 11/23/2019 9:25 AM 0 BIOLOGY RESEARCH ASSISTANT 12:27 PM BIOLOGY RESEARCH ASSISTANT Yesenia Sood DATE NIGHT CAREGIVER, VEST FINISHER LAB BLOOD ORDERABLES Performing Organization Address City/State/ZIP Code Phon e Number [facility] [address] [place] [address] (ABNORMAL) CBC Branch Off w/Diff (11/23/2019 9:25 AM BIOLOGY RESEARCH ASSISTANT) [facility] gist Method Time Signature WBC 8.2 3.5 - 10.5 11/23/2019 [facility] K/uL 9:36 AM BIOLOGY RESEARCH ASSISTANT [place] RBC 5.50 (H) 3.90 - 11/23/2019 [facility] 5.00 M/uL 9:36 AM BIOLOGY RESEARCH ASSISTANT [place] Hemoglobin 14.6 12.0 - 11/23/2019 [facility] 15.5 g/dL 9:36 AM BIOLOGY RESEARCH ASSISTANT [place] Hematocrit 47.1 (H) 35.0 - 11/23/2019 [facility] 44.0 % 9:36 AM BIOLOGY RESEARCH ASSISTANT [place] Platelets 117 (L) 150 - 450 11/23/2019 [facility] K/uL 9:36 AM BIOLOGY RESEARCH ASSISTANT [place] MCV 85.6 81.6 - 11/23/2019 [facility] [place] 98.3 fL 9:36 AM BIOLOGY RESEARCH ASSISTANT [place] MCH 26.5 26.0 - 11/23/2019 [facility] 32.0 pg 9:36 AM BIOLOGY RESEARCH ASSISTANT [place] MCHC 31.0 (L) 32.0 - 11/23/2019 [facility] 36.0 g/dL 9:36 AM BIOLOGY RESEARCH ASSISTANT [place] RDW 12.1 11.9 - 11/23/2019 [facility] 15.5 % 9:36 AM BIOLOGY RESEARCH ASSISTANT [place] Lymphocytes % 13.6 (L) 18.0 - 11/23/2019 [facility] 45.0 % 9:36 AM BIOLOGY RESEARCH ASSISTANT [place] Mid-size Cells 7.8 3.3 - 10.1 11/23/2019 [facility] % 9:36 AM BIOLOGY RESEARCH ASSISTANT [place] Granulocytes/Flip 78.6 (H) 45.8 - 11/23/2019 [facility] trophils 73.7 % 9:36 AM BIOLOGY RESEARCH ASSISTANT [place] Lymphocytes 1.1 0.9 - 2.9 11/23/2019 [facility] Absolute K/uL 9:36 AM BIOLOGY RESEARCH ASSISTANT [place] MIDS Absolute 0.6 0.2 - 0.8 11/23/2019 [facility] K/uL 9:36 AM BIOLOGY RESEARCH ASSISTANT [place] Granulocytes/Flip 6.5 2.1 - 8.7 11/23/2019 [facility] trophils K/uL 9:36 AM BIOLOGY RESEARCH ASSISTANT [place] Absolute Specimen Anatomical Collection Method Collection Time Receive d Time (Source) Location / / Volume Laterality Blood 11/23/2019 9:25 AM 0 9:30 BIOLOGY RESEARCH ASSISTANT AM BIOLOGY RESEARCH ASSISTANT Yesenia Sood APRN, VEST FINISHER LAB BLOOD ORDERABLES Performing Organization Address City/State/ZIP Code Phon e Number [facility] [place] [address] [place] [address] (ABNORMAL) Hemoglobin A1c (11/23/2019 9:25 AM BIOLOGY RESEARCH ASSISTANT) Analysis Performed At Patho logist Time Signature Hemoglobin A1C 8.4 (H) 4.0 - 5.6 11/23/2019 [facility] % A1C 2:05 PM [facility] Comment: Reference Range 4.0-5.6% is for [...] Volume Laterality Blood 11/23/2019 9:25 AM 0 BIOLOGY RESEARCH ASSISTANT 12:27 PM BIOLOGY RESEARCH ASSISTANT Yesenia Sood APRN, VEST FINISHER LAB BLOOD ORDERABLES Performing Organization Address City/State/ZIP Code Phon e Number [facility] [address] [place] [address] (ABNORMAL) Lipid panel (11/23/2019 9:25 AM BIOLOGY RESEARCH ASSISTANT) P athologist Signature Cholesterol 135 0 - 199 11/23/2019 [facility] mg/dL 12:49 PM [facility] Comment: Recommended by National Cholesterol Education Program (ATP III) -------- Cholesterol Ranges -------- <200 ? Desirable 200-239 ? Borderline high >=240 ? High Triglycerides 169 (A) 0 - 149 mg/dL 11/23/2019 12:49 PM [facility] Comment: -------- TRIG Ranges -------- <150 ?Normal 150-199 ? Borderline high 200-499 ? High >=500 ? Very high HDL 36 (A) 40 - 60 mg/dL 11/23/2019 12:[address] [facility] Comment: -------- HDL Ranges -------- <40 ?Low 40-59 ?Normal >=60 ? Optimal LDL Calculated 65 0 - 99 mg/dL 11/23/2019 12:49 PM CS T [facility] Comment: -------- LDL Ranges -------- <100 ? Optimal 100-129 ?Near optimal/above op timal 130-159 ?Borderline high 160-189 ?High >=190 ?Very high Fasting? Yes 11/23/2019 9:31 AM BIOLOGY RESEARCH ASSISTANT [facility] Specimen Anatomical Collection Method Collection Time Receive d Time (Source) Location / / Volume Laterality Blood 11/23/2019 9:25 AM 0 BIOLOGY RESEARCH ASSISTANT 12:27 PM BIOLOGY RESEARCH ASSISTANT Yesenia Sood APRN, VEST FINISHER LAB BLOOD ORDERABLES Performing Organization Address City/State/ZIP Code Phon e Number [facility] [address] [place] [address] TSH (11/23/2019 9:25 AM BIOLOGY RESEARCH ASSISTANT) P athologist Signature TSH, Sensitive 2.98 0.46 - 11/24/2019 [facility] L 4.68 mIU/L 2:06 PM BIOLOGY RESEARCH ASSISTANT [facility] Comment: The results from this [...] Volume Laterality Blood 11/23/2019 9:25 AM 0 BIOLOGY RESEARCH ASSISTANT 12:37 PM BIOLOGY RESEARCH ASSISTANT Yesenia Sood APRN, VEST FINISHER LAB BLOOD ORDERABLES Performing Organization Address City/State/ZIP Code Phon e Number [facility] [address] [place] [address] documented in this encounter Visit Diagnoses Diagnosis Type 2 diabetes mellitus without complic ation, with long-term current use of insulin (HCC) History of thrombocytopenia Essential hypertension Unspecified essential hypertension documented in this encounter Care Teams Agricultural Produce Packer Relationship Specialty Start Date End Date Yesenia Sood APRN, MINESH PCP - General 05/17/18 06/17/[address] [place] [address] documented as of this encounter
--- OUTSIDE RECORDS SUMMARY | 2022-07-27 09:21 | XMS_ITS | Encounter Summary ---
:1960 Author Organization [facility] Address [address] [place] [address] Care Team Providers Name Role Phone Yesenia Sood [place] ATTORNEY, MANAGER STRATEGIC PARTNERSHIPS Primary Care Provider [phone] Reason for Visit Reason Onset Date Comments Med Refill 03/15/2019 Encounter Details Date Type Department Care Team Description 03/15/2019 Refill [place] Yesenia Sood, Lower extremity edema [address] [place] ATTORNEY, MANAGER STRATEGIC PARTNERSHIPS [place], [place] [address] [address] [facility] [address] [phone] [place], [place] [address] Social History Tobacco Use [...] at Date Recorded 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 Yes documented in this encounter Plan of Treatment Not on filedocumented as of this encounter Visit Diagnoses Diagnosis Lower extremity edema Edema documented in this encounter Care Teams General Inspector Relationship Specialty Start Date End Date Yesenia Sood APRN, MANAGER STRATEGIC PARTNERSHIPS PCP - General 05/17/18 06/17/20 [address] [facility] [place] [id number] documented as of this encounter
--- OUTSIDE RECORDS SUMMARY | 2022-07-27 09:21 | XMS_ITS | Encounter Summary ---
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 Telephone Encounter - Katalina Watson MA - 07/31/2019 3:26 PM CDT Anabella- please put in a In Lab study order. Telephone Encounter - Jerilyn Moreau - 07/31/2019 3:24 PM CDT Patient called in and would like to proceed with in lab sleep study. Please place order. documented in this encounter Plan of Treatment Not on filedocumented as of this encounter Visit Diagnoses Not on filedocumented in this encounter Care Teams Street Light Repairer Helper Relationship Specialty Start Date End Date Yesenia Sood, REFINERY OPERATOR CRUDE UNIT, WALKING DRAGLINE OILER PCP - General 05/17/18 06/17/20 [address] [facility] [place] [address] documented as of this encounter
--- OUTSIDE RECORDS SUMMARY | 2022-07-27 09:21 | XMS_ITS | Encounter Summary ---
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 encounter Last Filed Vital Signs Vital Sign Reading Time Taken Comments Blood Pressure 126/68 06/27/2019 10:59 AM CDT Pulse 81 06/27/2019 10:59 AM CDT Temperature 37.2 ??C (99 ??F) 06/27/2019 10:59 AM CDT Respiratory Rate 18 06/27/2019 10:59 AM CDT Oxygen Saturation 94% 06/27/2019 10:59 AM CDT Inhaled Oxygen Concentration - - Weight 96.8 kg (213 lb 6.5 oz) 06/27/2019 10:59 AM CDT Height 162 cm (5' 3.78) 06/27/2019 10:59 AM CDT Body Mass Index 36.88 06/27/2019 10:59 AM CDT documented in this encounter Patient Instructions Patient InstructionsChwhitney Sood APRN, CNP - 06/27/2019 11:00 AM CDT Zpak, Prednisone, and Robitussin with codeine as directed documented in this encounter Progress Notes Yesenia Sood APRN, CNP - 06/27/2019 11:00 AM CDT Estab Patient Visit Subjective Patient ID: Angeles Morales is a 58 y.o. female presenting for the following concerns. Chief Complaint Patient presents with ??? Cough x 5 days ??? Fever x 5 days HPI: The patient is a pleasant 58-year-old female presenting ambulatory to the clinical setting today with a productive cough of green phlegm, wheezing, achiness, fever, as high as 100.5, chills, a decreased appetite, and fatigue, for the past 5 days. No dyspnea. The patient reports Wednesday, 2 days ago, shefelt quite, nauseous and vomited x1 and then actually started feeling a bit better. No abdominal pain, diarrhea, and/or constipation. The patient reports she has had headache discomfort. No nasal congestion or nasal drainage. Slight ear discomfort bilaterally. No sore throat. The patient has type 2 diabetes and her blood sugars have been fluctuating with this recent illness, yesterday morning 186, this morning 133, but previously well controlled. The patient reports she has been cleaning out her father's basement, has been exposed to dust, and is unsure if that is correlated with her current symptoms. The patient's is not ill. No recent travels. Non-smoker. ROS: GENERAL: See HPI. The patient has had an intermittent fever of 100.5 being the highest with associated chills and fatigue. EARS: See HPI. The patient has had mild ear discomfort bilaterally. NOSE: The patient denies nasal congestion or nasal drainage. MOUTH/THROAT: The patient has had headache discomfort. RESPIRATORY: See HPI. The patient has had a productive cough of green phlegm with associated wheezing and dyspnea. GASTROINTESTINAL: See HPI. The patient felt nauseous with vomiting on Wednesday, 2 days ago, which has since resolved. No abdominal pain, diarrhea or constipation. ENDOCRINOLOGY: The patient has a history of type 2 diabetes, her blood sugars have been fluctuating over the past several days, with morning fasting blood sugar of 186 yesterday, and 133 this morning. MUSCULOSKELETAL: The patient aches all over. NEUROLOGICAL: The patient has had headache discomfort. The following portions of the patient's chart [...] 1 kit, Rfl: 0 ??? chlorthalidone (HYGROTON) 25 MG tablet, Take 1 tablet (25 mg total) by mouth 1 (one) time each day, Disp: 90 tablet, Rfl: 3 ??? cholecalciferol (VITAMIN D-3) 2000 units capsule, Take 1 capsule by mouth daily, Disp: , Rfl: ??? glipiZIDE (GLUCOTROL) 10 MG tablet, Take 1 tablet (10 mg total) by mouth twice a day, Disp: 180 tablet, Rfl: 3 ??? glucose blood (ACCU-CHEK BETSEY PLUS) test strip, Use as instructed to check blood sugar daily. E11.9, Disp: 100 each, Rfl: 12 ??? Injection Device for Insulin (INPEN 860-EJTO-ZWFS) device, , Disp: , Rfl: ??? insulin aspart (NovoLOG FLEXPEN) 100 UNIT/ML injection, Inject 5 units subcutaneously with lunchand dinner, Disp: 5 pen, Rfl: 11 ??? insulin glargine (LANTUS) 100 UNIT/ML injection, Inject under the skin every night 38 units, Disp: , Rfl: ??? Insulin Pen Needle (PEN NEEDLES) 31G X 5 MM misc, Use to check blood sugar twice daily. BD Ultra-Fine III Mini Pen Needle Dx: E11.9, Disp: 100 each, Rfl: 3 ??? Lancets (ONETOUCH ULTRASOFT) lancets, Check blood sugar daily or as directed. E11.9, Disp: 100 each, Rfl: 3 ??? loratadine (CLARITIN) 5 [...] sleep, Disp: 180 tablet, Rfl: 3 ??? albuterol HFA (PROAIR HFA) 108 (90 Base) MCG/ACT inhaler, Inhale 2 puffs every 4 (four) hours ifneeded for wheezing or shortness of breath (Patient not taking: Reported on 06/27/2019), Disp: 8.5 g,Rfl: 1 ??? azithromycin (ZITHROMAX) 250 MG tablet, Take 2 tabs (500 mg) by mouth today, than 1 daily for 4 days., Disp: 6 tablet, Rfl: 0 ??? guaiFENesin-codeine (ROBITUSSIN-AC) 100-10 MG/5ML liquid, Take 5-10 mL by mouth every 4 (four) hours if needed for cough, Disp: 240 mL, Rfl: 0 ??? predniSONE (DELTASONE) 20 MG tablet, Take 2 tablets (40 mg total) by mouth 1 (one) time each dayfor 5 days, Disp: 10 tablet, Rfl: 0 Objective Visit Vitals BP 126/68 (BP Location: Left arm, Patient Position: Sitting) Pulse 81 Temp 37.2 ??C (99 ??F) (Temporal) Resp 18 Ht 1.62 m (5' 3.78) Wt 96.8 kg (213 lb 6.5 oz) SpO2 94% BMI 36.88 kg/m?? Smoking Status Never Smoker BSA 2.09 m?? GENERAL: The patient is alert, orientated, and in no apparent distress. HEENT: Head normocephalic. The patient sound nasally congested. Eyes - pupils round and reactive to light, glossy in appearance. Ears - normal canals, normal pearly jacobo TMs bilaterally. Throat -erythematous oropharynx. Neck - Supple. No cervical or posterior lymphadenopathy. CARDIOVASCULAR: Normal heart rate and rhythm. No murmur. RESPIRATORY: Lungs are clear, bilaterally. No wheezing. The patient had a coarse nonproductive coughseveral times during the clinical visit today. DIAGNOSTICS: Influenza negative a and B. Assessment/Plan Angeles was seen today for cough and fever. Diagnoses and all orders for this visit: Cough (Primary) - Rapid influenza A/B antigens - azithromycin (ZITHROMAX) 250 MG tablet; Take 2 tabs (500 mg) by mouth today, than 1 daily for 4 days. - guaiFENesin-codeine (ROBITUSSIN-AC) 100-10 MG/5ML liquid; Take 5-10 mL by mouth every 4 (four) hours if needed for cough Wheezing - predniSONE (DELTASONE) 20 MG tablet; Take 2 tablets (40 mg total) by mouth 1 (one) time each day for 5 days Fever, unspecified fever cause - azithromycin (ZITHROMAX) 250 MG tablet; Take 2 tabs (500 mg) by mouth today, than 1 daily for 4 days. Discussed the plan of care with the patient. Prescribed a Z-Regan, prednisone 20 mg twice daily x5 days and Robitussin with codeine. The patient understands the prednisone can increase her blood sugars and she can certainly discontinue the medication if it becomes problematic. The patient reports Robitussin with codeine historically has helped her sleep at night, which she feels is important, as she recovers. The patient will notify me if symptoms persistent or worsen. The patient agrees and understands this plan of care. Yesenia Sood APRN, SUMATRA OPENER CHART REVIEWED DR. NEIL documented in this encounter Plan of Treatment Not on filedocumented as of this encounter Procedures Procedure Name Priority Date/Time Associated Diagnosis Comme nts RAPID INFLUENZA A/B Routine 06/27/2019 11:30 AM Cough R esults for this ANTIGENS CDT procedure are i n the results section. documented in this encounter Results Rapid influenza A/B antigens (06/27/2019 11:30 AM CDT) athologist Signature Rapid NEGATIVE Negative 06/27/[address] [facility] Influenza A 1:34 PM CDT [place] Rapid NEGATIVE Negative 06/27/[address] [facility] Influenza B 1:34 PM CDT [facility] Comment: A negative test is presumptive and does not exclude influenza virus infection. Specimen Anatomical Collection Method Collection Time Receive d Time (Source) Location / / Volume Laterality Swab 06/27/2019 11:30 06/27/2019 (Nasopharynx) AM CDT 11:33 AM CDT Yesenia Sood APRN, CNP LAB BODY FLUIDS AND STOOL S ORDERABLES Performing Organization Address City/State/ZIP Code Phon e Number [facility] GONZALO BREWSTER [address] [place] [address] documented in this encounter Visit Diagnoses Diagnosis Cough - Primary Wheezing Fever, unspecified fever cause documented in this encounter Care Teams Derivatives Trader Relationship Specialty Start Date End Date Yesenia Sood APRN, SUMATRA OPENER PCP - General 05/17/18 06/17/20 100 [facility] [place] [id number] documented as of this encounter
--- OUTSIDE RECORDS SUMMARY | 2022-07-27 09:21 | XMS_ITS | Encounter Summary ---
:1960 Author Organization [facility] Address [address] [place] [address] Care Team Providers Name Role Phone Yesenia Sood SEAPORT PLANNING MANAGER, WASH MILL OPERATOR Primary Care Provider [phone] Reason for Visit Reason Onset Date Comments Med Refill 05/25/2019 Encounter Details Date Type Department Care Team Description 05/25/2019 Refill [place] Yesenia Sood, Type 2 diabetes [address] SEAPORT PLANNING MANAGER, WASH MILL OPERATOR mellitus without [place], [place] [address] complication, with [phone] [place], [place] [address] long-term current use of insul in ([facility]) (Primary Dx) Social History Tobacco Use Types [...] at Date Recorded 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 SITagliptin (JANUVIA) 50 MG tablet 90 tablet 3 Sig: Take [...] LDL Calculated 0 - 99 mg/dL 67 Component Latest Ref Rng & Units 02/09/2019 Hemoglobin A1C 4.0 - 5.6 % A1C 7.3 (H) Vitals: BP Readings from Last 2 Encounters: 03/13/19 136/84 02/16/19 (!) 140/96 documented in this encounter Plan of Treatment Not on filedocumented as of this encounter Visit Diagnoses Diagnosis Type 2 diabetes mellitus without complic ation, with long-term current use of insulin (HCC) - Primary documented in this encounter Care Teams Sports Physiotherapist Relationship Specialty Start Date End Date Yesenia Sood, SEAPORT PLANNING MANAGER, WASH MILL OPERATOR PCP - General 05/17/18 06/17/20 [address] [facility] [place] [id number] documented as of this encounter
--- OUTSIDE RECORDS SUMMARY | 2022-07-27 09:21 | XMS_ITS | Encounter Summary ---
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 Yesenia Sood Sleep Medicine Provider: Deanne Dejesus Interpreting Gayle: Dr. Fan Clinical Synopsis The patient is a 58 year old female who presented for a Sleep Medicine Intake Assessment on 07/07/19 upon the encouragement of Dr. Yesenia Sood. A formal in-laboratory polysomnogram was indicated for Obstructive Sleep Apnea. The patient presents with concerns possibly related to abnormal pulse oximetry study (02/24/2019), and snoring. She has been snoring for approximately 5 years. The patient is experiencing poor quality, nonrestorative sleep resulting in subsequent fatigue and daytime sleepiness. The patient is concerned she may have sleep apnea. Patient endorses socially disruptive snoring that occurs in all positions with the exception of being in an upright position. Patient notes regular sleep fragmentation associated with respiratory events including snort arousals. The patientis unaware if her has noticed any apneic episodes. Patient does endorse progressive fatigue,occasional excessive daytime sleepiness. Patient denies vulnerability to inappropriate sleepiness while operating a motor vehicle, but notes she falls asleep quickly when a passenger. She endorses musculoskeletal pain that influences poor sleep, including chronic low back pain and joint stiffness. Patient's preferred position of sleep is supine. Medications include: See Patient???s Chart Active Medical Issues: N/A Most Recent Sleep Medicine Clinic Intake Assessment: 07/07/19 Home Schedule: Sleep Onset Time: 10:30 PM Sleep Rise Time: 7:30-8 AM Estimated Total Sleep Time (Full night): 9 Hours [place] Sleepiness Score: 7 STOP BANG Scale: 6 Muñoz Class: 4 Neck Circumference: 16.75 Inches Body Mass Index: 36.88 Study Performed: Baseline PSG A formal In-laboratory polysomnographic study was performed in accordance with the standards and guidelines set forth by the [place] [employer] using the international 10-20 electrode placement for recording EEG, EOG, EMG from chin, ECG, respiratory effort, oximetry, body position, airflow, nasal pressure, snoring sound, pulse rate and limb movement channels. Results were based upon the current definitions of hypopnea rule VIII.D.1B of the AASM guidelines. PART 1 - Diagnostic Baseline Sleep Architecture: 334.5 minutes, or approximately 5.6 hours of Total Sleep Time were reviewed during the diagnostic portion of the study in order to arrive at a formal assessment. % Sleep Efficiency was diminished at 72.9%. The patient???s sleep latency was 25.0. The total amount of REM sleep was 5.8% with the REM latency of 201.5 minutes. The total amount of stage 1 sleep was 8.8%, Stage 2 was 71.2%, and Stage 3 was 14.2%. Respiration: Snoring - Light, moderate, and loud For quality assurance monitor final purposes it should be noted, Stage REM sleep in a supine position was expressed during the diagnostic portion of the study and accounted for 5.0 minutes of the total diagnostic sleep time. Supine Non-Supine Total AHI 14.7 0.5 4.3 RDI 24.1 1.2 7.4 Total A + H 22 2 24 Obstructive Apnea 2 0 2 Central Apnea 0 0 0 Mixed Apnea 0 0 0 Hypopnea 20 2 22 REM A + H 2 2 4 REM AHI 24.0 8.3 12.3 RERA 14 3 17 RERA Index 9.4 0.7 3.0 Based upon review of the airflow envelopes and the calculation of the Apnea/Hypopnea Index (AHI) thepatient does not have clinically significant AMBIKA. Of the infrequent obstructive respiratory events that were expressed, these were primarily observed when in Stage REM sleep when in a supine position. SaO2: Mean hemoglobin oxygen saturation (SaO2) during wakefulness was 92.4. Mean hemoglobin oxygen SaO2 during the diagnostic portion of the PSG in sleep was 90.9% with a SaO2 desaturation laurie observed to 87.0%. Sleep-related Hypoxemia was not present as cumulative exposure time in sleep to SaO2 below 89%did surpass 5 total minutes. Minutes TRT SaO2 <88% 0.9 Minutes TRT SaO2 <90% 59.5 Cardiac Summary: The average pulse rate was 62.1 bpm. The maximum pulse rate was 90.0 bpm while the minimum pulse rate was 49.0 bpm throughout the night. The analysis off of a single Lead II EKG was suggestive of the following dysrhythmias: none Movement Activity: Periodic Limb Movement (PLM) Count Index Number of Periodic Limb Movements 10 1.8 Periodic Limb Movements with Arousals 0 0.0 NOTE: The polysomnographic observation of periodic limb movements alone does not provide a diagnosisfor a Primary Sleep Related Movement Disorder. Clinical correlation is indicated particularly in theevaluation for Restless Legs Syndrome (Castanon Ekbom Disease). Behavior/Motor Activity - None noted. Stage REM Sleep was expressed with normal muscle atonia as monitored by surface EMG electrodes that had been placed on the submental region and bilateral anterior tibialis. Bruxism - None noted. PART 2 - Therapeutic Intervention Therapeutic Intervention: Despite the pretest suspicion for clinically significant Sleep-related Breathing Disorder, this PSG did not reveal AMBIKA as supported by an AHI < 5 events/hour coupled with SaO2 levels that were within normal limits. Thus, there was no indication to introduce Continuous Positive Airway Pressure (CPAP) therapy based upon the results of this diagnostic study. Assessment Summary: 1) Diagnostic Summary: a. Total Sleep Time = [...] data please refer to PSG raw data. 2) Diagnosis- Other respiratory symptoms and conditions (Primary Snoring) i. Mild AMBIKA (AHI=5-15 events/hour) ii. Moderate AMBIKA (AHI=15-30 events/hour) iii. Severe AMBIKA (AHI=Above 30 events/hour) 1. RE: AHI-Apnea/Hypopnea Index b. AHI 4.3 events/hour c. RDI 7.4 events/hour d. COMMENTS: Snoring intensity was documented to range from light - moderate - loud. Recommendation: 1. Follow-up with [facility] to discuss the results of this [...] to DME for fitting with Nasal Valves Electronically signed by Elmer Fan MD, DABSM, FAASM Diplomate - [place] Board of Sleep Medicine Diplomate - [place] Board [employer] Specialists-Sleep Medicine Fellow- [place] [employer] Hospice Executive Director - [facility] NSION ENVELOPE MAKER HAND documented in this encounter Plan of Treatment Not on filedocumented as of this encounter Visit Diagnoses Diagnosis Snoring - Primary Other dyspnea and respiratory abnormalit y documented in this encounter Care Teams Pharmacist In Charge Relationship Specialty Start Date End Date Yesenia Sood APRN, CHICKEN PICKER PCP - General 05/17/18 06/17/[address] [place] [id number] documented as of this encounter
--- OUTSIDE RECORDS SUMMARY | 2022-07-27 09:21 | XMS_ITS | Encounter Summary ---
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 Do we need to contact anyone? Alberto Telephone Encounter - Lili Lucero RN - 06/13/2019 1:40 PM CDT Rx pended for review, pharmacy verified this was their most recent dose as well. Telephone Encounter - Francisca Jackie - 06/13/2019 11:25 AM CDT Elizabeth with [facility] pharmacy called stating the refill request was sent last week and they are hoping to get her Nova log flex pens refilled yet today. Please call Elizabeth at [phone] as necessary. documented in this encounter Plan of Treatment Not on filedocumented as of this encounter Visit Diagnoses Diagnosis Type 2 diabetes mellitus without complic ation, with long-term current use of insulin (HCC) - Primary documented in this encounter Care Teams Schedule Checker Relationship Specialty Start Date End Date Yesenia Sood, ODD PIECE CHECKER, E D TECH PCP - General 05/17/18 06/17/[address] [place] [address] [place] BECK[place] [id number] documented as of this encounter
--- OUTSIDE RECORDS SUMMARY | 2022-07-27 09:21 | XMS_ITS | Encounter Summary ---
:1960 Author Organization [facility] Address [address] [place] [address] Care Team Providers Name Role Phone Yesenia Sood APRN, DISEASE CASE MANAGER Primary Care Provider [phone] Reason for Referral Consultation (Routine) - Closed Specialty Diagnoses / Procedures Referred By Contact Refer red To Contact Sleep Medicine Diagnoses Snoring Deanne Dejesus APRN, Procedures Polysomnography DISEASE CASE MANAGER [address] [facility] [address] [place] [address] Referral ID Status Reason Start Date Expiration Date Visits V isits Requested Authorized [id number] Closed Specialty 07/31/2019 01/30/2020 1 1 Services Required Encounter Details Date Type Department Care Team Description 07/31/2019 Orders Only [facility] 52 Sleep Medicin e Deanne Dejesus, Snoring (Primary Dx) [address] [address], [place] [address] Social History Tobacco Use Types Packs/Day Years [...] at Date Recorded 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
--- OUTSIDE RECORDS SUMMARY | 2022-07-27 09:21 | XMS_ITS | Encounter Summary ---
:1960 Author Organization [facility] Address [address] [place] [address] Care Team Providers Name Role Phone Yesenia Sood APRN, MEDICAL LABORATORY ASSISTANT Primary Care Provider [phone] Reason for Visit Reason Comments Consult abnormal oximetry Snoring Consultation (Routine) - Closed Specialty Diagnoses / Procedures Referred By Contact Refer red To Contact Sleep Medicine Diagnoses Essential (primary) hypertension Yesenia Sood APRN, MEDICAL LABORATORY ASSISTANT [address] [place] [address] Referral ID Status Reason Start Date Expiration Date Visits V isits Requested Authorized [id number] Closed Specialty 03/15/2019 03/15/2020 1 1 Services Required Encounter Details Date Type Department Care Team Description 07/07/2019 Office Visit Y 52 Sleep Medicin e Elmer Guerra MD Snoring (Primary Dx) [address] [facility] [address] Deanne Dejesus APRN, [place] [address] Social History Tobacco Use Types Packs/Day Years [...] at Date Recorded 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 encounter Last Filed Vital Signs Vital Sign Reading Time Taken Comments Blood Pressure 120/72 07/07/2019 7:22 AM CDT Pulse 72 07/07/2019 7:22 AM CDT Temperature - - Respiratory Rate 16 07/07/2019 7:22 AM CDT Oxygen Saturation 98% 07/07/2019 7:22 AM CDT Inhaled Oxygen Concentration - - Weight 96.8 kg (213 lb 6.5 oz) 07/07/2019 7:22 AM CDT Height 162 cm (5' 3.78) 07/07/2019 7:22 AM CDT Body Mass Index 36.88 07/07/2019 7:22 AM CDT documented in this encounter Progress Notes Deanne Dejesus APRN, MEDICAL LABORATORY ASSISTANT - 07/07/2019 7:00 AM CDT Subjective Patient ID: Angeles Morales is a 58 y.o. female. Chief Complaint Patient presents with ??? Consult abnormal oximetry ??? Snoring HPI Angeles Morales is a 58 y.o. female who [place] [facility] upon the encouragement of her primary care provider. The patient presents with concerns possibly related to abnormal pulse oximetry study (02/24/2019), and snoring. She has been snoring for approximately 5 years. The patient is experiencing poor quality, nonrestorative sleep resulting in subsequent fatigue and daytime sleepiness. The patient is concerned she may have sleep apnea. 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 She is , lives with her and has no pets. She has a predictable diurnal behavioral pattern and has a well-defined nocturnal sleep pattern. There is no compelling clinical history to suggest a Circadian Rhythm Disorder such as an advance or delayed sleep phase syndrome. The patient appears to set aside ample time for nocturnal sleep suggestingan attempt to minimize vulnerability towards insufficient sleep. Bed Time Estimate: 10:30 PM Rise Time Estimate: 7:30-8:00 AM Total Sleep Time Estimate: 8 Hours Sleep Latency: up to 60 min. #Night Time Awakenings: 1-2 Medications used to improve sleep include: Trazodone (DESYREL) 50 MG tablet, one tablet q HS. She finds this an effective medication to assist her in falling asleep. Patient endorses socially disruptive snoring that occurs in all positions with the exception of being in an upright position. Patient notes regular sleep fragmentation associated with respiratory events including snort arousals. The patient is unaware if her has noticed any apneic episodes. Patient does endorse progressive fatigue, occasional excessive daytime sleepiness. Patient denies vulnerability to inappropriate sleepiness while operating a motor vehicle, but notes she falls asleep quickly when a passenger. Patient denies any of the narcolepsy triad of hypnagogic hallucinations, or s igns suggestive of cataplexy. She endorses musculoskeletal pain that influences poor sleep, including chronic low back pain and joint stiffness. Denies history of anxiety and/or depression that may influence sleep. Denies increased stress/worry/perseverative thought processes. Patient practices good sleep hygiene to reduce ineffective time in bed. She denies increased stress/worry/perseverative thought processes. Patient's preferred position of sleep is supine. Patient denies any symptoms suggestive of sleep-related movement disorder including lower extremity paraesthesias or dysesthesias with a circadian association that might be suggestive of Castanon Ekbom disease. Patient denies any somnambulism or somniloquy and confusional arousals. The following portions of the patient's chart were reviewed in this encounter and updated as appropriate: Meds Problems Review of Systems Caffeine Exposure: Zero 8 oz. servings per day Alcohol Exposure: 1-2 drinks per month [place] Sleepiness Scale: 05/03 STOP BAN BMI: 36.88 Neck Circumference: 16.75 inches Muñoz Classification: IV Sleep-related Surgical History: Tonsils intact Family Medical History for AMBIKA: positive. Mother and a niece have been diagnosed with AMBIKA and have been prescribed CPAP therapy. Objective Physical Exam PHYSICAL EXAM ENT-Uvula midline with normal symmetric upward, elevation of soft palate Tonsil intact without hypertrophy or enlargement NECK-No lymphadenopathy in mandibular/cervical/clavicular regions CHEST-Bilaterally clear to auscultation, no crackles/rales/wheezes HEART- RRR, normal S1 and S2, no murmur/gallops ABD-Deferred EXT-Mild, 1+ pretibial or pedal edema. Patient sts she has recently undergone changes in her antihypertensive medications as they were a contributing factor in the development of edema. Has seen a partial resolution in symptoms. Patient states her weight has been essentially unchanged in the past 20-30 years. Assessment/Plan Diagnoses and all orders for this visit: Snoring 58-year-old female with hx of hypertension, abnormal overnight pulse oximetry testing. Although patient does have an increased probability for mild to moderate obstructive sleep apnea, there is not a compelling urgency for PSG to be completed immediately. It was recommended the patient have a sleep study done within the next 1-6 months. Pathophysiology, diagnosis, and management of obstructive sleep apnea were discussed. Impression: Snoring Diagnostic Recommendations: 1. To evaluate for AMBIKA, recommend a formal sleep study within the next 1-6 months. (In-lab or HST would be appropriate) 2. Refrain from operating machinery or driving a motor vehicle if experiencing problematic fatigue or excessive sleepiness 2. Follow up in sleep medicine clinic after completion of study to discuss results and management ordisposition documented in this encounter Plan of Treatment Scheduled Referrals Name Type Priority Associated Diagnoses Order S chedule Ambulatory referral Outpatient Referral Routine Essential (pérez betsey) Ordered: to Sleep Medicine hypertension 03/15/2019 documented as of this encounter Visit Diagnoses Diagnosis Snoring - Primary Other dyspnea and respiratory abnormalit y documented in this encounter Care Teams Crop Setting Out Machine Operator Relationship Specialty Start Date End Date Yesenia Sood APRN, MEDICAL LABORATORY ASSISTANT PCP - General 05/17/18 06/17/20 [address] [place] [address] documented as of this encounter
--- OUTSIDE RECORDS SUMMARY | 2022-07-27 09:21 | XMS_ITS | Encounter Summary ---
:1960 Author Organization [facility] Address [address] [place] [address] Care Team Providers Name Role Phone Yesenia Sood BANKING OFFICER, ADVERTISING CAMPAIGN MANAGER Primary Care Provider [phone] Reason for Visit Reason Onset Date Comments Med Refill 06/21/2019 Encounter Details Date Type Department Care Team Description 06/21/2019 Refill [place] Yesenia Sood, Type 2 diabetes [address] BANKING OFFICER, ADVERTISING CAMPAIGN MANAGER mellitus without [place], [place] [address] complication, with [phone] [place], [place] [address] long-term current use of insul in ([facility]) (Primary Dx) Social History Tobacco Use Types [...] at Date 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 glipiZIDE (GLUCOTROL) 10 MG tablet 180 tablet 0 Sig: Take 1 tablet (10 mg total) by mouth twice a day Labs: Component Latest Ref Rng & [...] Primary documented in this encounter Care Teams Supervisor Accounts Receivable Relationship Specialty Start Date End Date Yesenia Sood, BANKING OFFICER, ADVERTISING CAMPAIGN MANAGER PCP - General 05/17/18 06/17/20 [address] [facility] [place] BECK[place] [address] documented as of this encounter
--- OUTSIDE RECORDS SUMMARY | 2022-07-27 09:22 | XMS_ITS | Encounter Summary ---
:1960 Author Organization [facility] Address [address] [place] [address] Care Team Providers Name Role Phone Yesenia Sood APRN, CNP Primary Care Provider [phone] Reason for Visit Reason Onset Date Comments Pt returned call to clinic. 02/09/2019 Encounter Details Date Type Department Care Team Description 02/09/2019 Telephone [place] Yesenia Sood, Pt returned call to [address] [facility] [address] MINESH HANSEN clinic. 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 Telephone Encounter - Perla Bennett MA - 02/09/2019 11:18 AM CDT Alberto did you try and contact the patient documented in this encounter Plan of Treatment Not on filedocumented as of this encounter Visit Diagnoses Not on filedocumented in this encounter Care Teams Forensic Ballistics Expert Relationship Specialty Start Date End Date Yesenia Sood APRN, SHORT HAUL DRIVER PCP - General 05/17/18 06/17/20 [address] [facility] [address] documented as of this encounter
--- OUTSIDE RECORDS SUMMARY | 2022-07-27 09:22 | XMS_ITS | Encounter Summary ---
:1960 Author Organization [facility] Address [address] [place] [address] Care Team Providers Name Role Phone Yesenia Sood APRN, YARD ATTENDANT Primary Care Provider [phone] Encounter Details Date Type Department Care Team Description 02/09/2019 Lab Gonzalo [place]ster Bilateral lower extremity ed kyle; [address] Thrombocytopenia (HCC); [place] [address] Type 2 diabetes mellitus wit h complication, with long-term current use of insulin (HCC); [phone] Type 2 diabetes mellitus without complication, with long-term current use of insulin (HCC) Social History Tobacco Use Types Packs/Day [...] at Date Recorded 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 CBC BRANCH OFFICE Routine 02/09/2019 8:56 Thrombocytopenia (HC C) Results for this W/DIFF AM CDT procedure are i n the results section. HEMOGLOBIN A1C Routine 02/09/2019 8:56 Type 2 diabetes mellitu s Results for this AM CDT with complication, with proc edure are in long-term current use of the results insulin (HCC) section. BASIC METABOLIC Routine 02/09/2019 8:56 Bilateral lower Result s for this PANEL AM CDT extremity edema procedure ar e in the results section. documented in this encounter Results (ABNORMAL) Glomerular filtration rate (GFR) (02/09/2019 8:56 AM CDT) P athologist Signature GFR 33 (A) 02/09/2019 [facility] 1:00 PM CDT [facility] 40 (A) 02/09/2019 [facility] Syrian GFR 1:00 PM CDT [facility] Comment: GFR calculated from serum creatinine v alue Chronic Kidney Disease less than 60 mL/m in/1.73 m2 Kidney Failure less than 15 mL/min/1.73 m2 Note: effective 02/23/07 IDMS-Traceable MDRD Study Equation used. Specimen Anatomical Collection Method Collection Time Receive d Time (Source) Location / / Volume Laterality 02/09/2019 8:56 AM 9 8:56 CDT AM CDT Yesenia Sood ACROBATIC DANCER, YARD ATTENDANT LAB BLOOD ORDERABLES Performing Organization Address City/State/ZIP Code Phon e Number [facility] [address] [place] [address] (ABNORMAL) Hemoglobin A1c (02/09/2019 8:56 AM CDT) Analysis Performed At Patho logist Time Signature Hemoglobin A1C 7.3 (H) 4.0 - 5.6 02/09/2019 [facility] % A1C 1:18 PM CDT [facility] Comment: Reference Range 4.0-5.6% [...] (Source) Location / / Volume Laterality Blood (Blood, 02/09/2019 8:56 AM 02/10/20 19 Venous) CDT 12:10 PM CDT Yesenia Sood APRN, YARD ATTENDANT LAB BLOOD ORDERABLES Performing Organization Address City/State/ZIP Code Phon e Number [facility] [address] [place] [address] (ABNORMAL) CBC Branch Off w/Diff (02/09/2019 8:56 AM CDT) [facility] Method Time Signature WBC 7.6 3.5 - 10.5 02/09/2019 [facility] K/uL 9:06 AM CDT [place] RBC 4.99 3.90 - 02/09/2019 [facility] 5.00 M/uL 9:06 AM CDT [place] Hemoglobin 14.4 12.0 - 02/09/2019 [facility] 15.5 g/dL 9:06 AM CDT [place] Hematocrit 42.1 35.0 - 02/09/2019 [facility] 44.0 % 9:06 AM CDT [place] Platelets 117 (L) 150 - 450 02/09/2019 [facility] K/uL 9:06 AM CDT [place] MCV 84.4 81.6 - 02/09/2019 [facility] 98.3 fL 9:06 AM CDT [place] MCH 28.9 26.0 - 02/09/2019 [facility] 32.0 pg 9:06 AM CDT [place] MCHC 34.2 32.0 - 02/09/2019 [facility] 36.0 g/dL 9:06 AM CDT [place] RDW 12.2 11.9 - 02/09/2019 [facility] 15.5 % 9:06 AM CDT [place] Lymphocytes % 15.0 (L) 18.0 - 02/09/2019 [facility] 45.0 % 9:06 AM CDT [place] Mid-size Cells 7.6 3.3 - 10.1 02/09/2019 [facility] % 9:06 AM CDT [place] Granulocytes/Flip 77.4 (H) 45.8 - 02/09/2019 [facility] trophils 73.7 % 9:06 AM CDT [place] Lymphocytes 1.1 0.9 - 2.9 02/09/2019 [facility] Absolute K/uL 9:06 AM CDT [place] MIDS Absolute 0.6 0.2 - 0.8 02/09/2019 [facility] K/uL 9:06 AM CDT [place] Granulocytes/Flip 5.9 2.1 - 8.7 02/09/2019 [facility] [place] trophils K/uL 9:06 AM [facility] Absolute Specimen Anatomical Collection Method Collection Time Receive d Time (Source) Location / / Volume Laterality Blood (Blood, 02/09/2019 8:56 AM 02/10/20 19 9:04 Venous) CDT AM CDT Yeseina Sood APRN, MINESH LAB BLOOD ORDERABLES Performing Organization Address City/[facility] Phon e Number [facility] GONZALO BREWSTER [address] [place] [address] (ABNORMAL) Basic metabolic panel (02/09/2019 8:56 AM CDT) Analysis Performed At [facility] logist Time Signature Sodium 142 135 - 145 02/09/2019 [place] mEq/L 1:00 PM [facility] Potassium 4.1 3.5 - 5.1 02/09/2019 [place] mEq/L 1:00 PM [facility] Chloride 106 98 - 107 02/09/2019 [place] mEq/L 1:00 PM [facility] CO2 27 22 - 29 02/09/2019 [place] mmol/L 1:00 PM [facility] Creatinine 1.6 (H) 0.4 - 1.2 02/09/2019 [place] mg/dL 1:00 PM [facility] BUN 22 5 - 25 02/09/2019 [place] mg/dL 1:00 PM [facility] Glucose 158 (H) 70 - 100 02/09/2019 [place] mg/dL 1:00 PM [facility] Calcium, 9.5 8.4 - 10.2 02/09/2019 [place] Total,S mg/dL 1:00 PM [facility] Fasting? Yes 02/09/2019 [facility] [place] 9:04 AM [facility] Specimen Anatomical Collection Method Collection Time Receive d Time (Source) Location / / Volume Laterality Blood (Blood, 02/09/2019 8:56 AM 02/10/20 19 9:04 Venous) CDT AM CDT Yesenia Sood APRN, MINESH LAB BLOOD ORDERABLES Performing Organization Address City/[facility]/ZIP Code Phon e Number [facility] GONZALO BREWSTER [address] [place] [address] [facility] [address] [place] [address] LABORATORY documented in this encounter Visit Diagnoses Diagnosis Bilateral lower extremity edema Thrombocytopenia (HCC) Unspecified thrombocytopenia Type 2 diabetes mellitus with complicati on, with long-term current use of insulin (HCC) Type 2 diabetes mellitus without complic ation, with long-term current use of insulin (HCC) documented in this encounter Care Teams Tourist Cabin Keeper Relationship Specialty Start Date End Date Yesenia Sood APRN, YARD ATTENDANT PCP - General 05/17/18 06/17/[address] [place] [id number] documented as of this encounter
--- OUTSIDE RECORDS SUMMARY | 2022-07-27 09:22 | XMS_ITS | Encounter Summary ---
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 PROGRAM MANAGER documented in this encounter Plan of Treatment Not on filedocumented as of this encounter Visit Diagnoses Not on filedocumented in this encounter Care Teams Field Service Technician Poultry Relationship Specialty Start Date End Date Yesenia Sood, EVAPORATOR, ART EDUCATION PROFESSOR PCP - General 05/17/18 06/17/20 [address] [facility] [place] [id number] documented as of this encounter
--- OUTSIDE RECORDS SUMMARY | 2022-07-27 09:22 | XMS_ITS | Encounter Summary ---
:1960 Author Organization [facility] Address [address] [place] [address] Care Team Providers Name Role Phone Yesenia Sood SEX OFFENDER TREATMENT PROFESSIONAL, ACCOUNTING POLICY CONSULTANT Primary Care Provider Reason for Visit Reason Onset Date Comments Med Refill 01/26/2019 Encounter Details Date Type Department Care Team Description 01/26/2019 Refill [place]ster Yesenia Sood, Type 2 diabetes [address] SEX OFFENDER TREATMENT PROFESSIONAL, ACCOUNTING POLICY CONSULTANT mellitus without [place], [place] [address] complication, with [phone] [place], [place] [address] long-term current use of insul in ([facility]) (Primary Dx) Social History Tobacco Use Types [...] at Date Recorded 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 Telephone Encounter - Lili Lucero RN - 01/26/2019 9:31 AM CDT Patient informed, please fax to [facility] pharmacy in [place]. Telephone Encounter - Yesenia Sood APRN, MINESH - 01/26/2019 9:23 AM CDT The patient is due for a HGB A1c in Feb, 2019, the order has been placed, can you please notify the patient. Thanks, Alberto Telephone Encounter - Lili Lucero RN - 01/26/2019 8:22 AM CDT Rx pended for signature. Telephone Encounter - Ирина Palmer LPN - 01/26/2019 8:13 AM CDT BD ([employer]), Ultra-Fine III Mini Pen Needle, 31 Gx5mm (12/24) 1-2X/D (1 to 2x a day) #1 box with 3 refills filled on 03/16/17 Last seen on 11/14/18 Ref Range & Units 11/14/18 0937 Hemoglobin A1C 4.0 - 5.6 % A1C 8.7High No apt at this time Not on pts med list documented in this encounter Plan of Treatment Not on filedocumented as of this encounter Visit Diagnoses Diagnosis Type 2 diabetes mellitus without complic ation, with long-term current use of insulin (HCC) - Primary documented in this encounter Care Teams Manual Arts Teacher Relationship Specialty Start Date End Date Yesenia Sood APRN, ACCOUNTING POLICY CONSULTANT PCP - General 05/17/18 06/17/20 100 [facility] [place] [id number] documented as of this encounter
--- OUTSIDE RECORDS SUMMARY | 2022-07-27 09:22 | XMS_ITS | Encounter Summary ---
:1960 Author Organization [facility] Address [address] [place] [address] Care Team Providers Name Role Phone Yesenia Sood FRAME STRIPPER AND CRUSHER, REPRESENTATIVE Primary Care Provider [phone] Reason for Visit Reason Comments Medication Visit Encounter Details Date Type Department Care Team Description 11/14/2018 Office Visit [place] Yesenia Sood Type 2 diabetes mellitus wit hout complication, with long-term current use of insulin (HCC) (Primary Dx); [address] M, MINESH HANSEN Insomnia, unspecified type; [place], [place] [address] Thrombocytopenia (HCC) [address] [place], [place] [phone] [id number] Social History Tobacco Use Types Packs/Day Years [...] Date Recorded 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 documented as of this encounter Last Filed Vital Signs Vital Sign Reading Time Taken Comments Blood Pressure 126/82 11/14/2018 9:02 AM SENIOR APPLICATIONS ANALYST Pulse 67 11/14/2018 9:02 AM SENIOR APPLICATIONS ANALYST Temperature 36.8 ??C (98.2 ??F) 11/14/2018 9:02 AM SENIOR APPLICATIONS ANALYST Respiratory Rate 16 11/14/2018 9:02 AM SENIOR APPLICATIONS ANALYST Oxygen Saturation 98% 11/14/2018 9:02 AM SENIOR APPLICATIONS ANALYST Inhaled Oxygen Concentration - - Weight 101 kg (223 lb 12.3 oz) 11/14/2018 9:02 AM SENIOR APPLICATIONS ANALYST Height 162.3 cm (5' 3.9) 11/14/2018 9:02 AM SENIOR APPLICATIONS ANALYST Body Mass Index 38.53 11/14/2018 9:02 AM SENIOR APPLICATIONS ANALYST documented in this encounter Patient Instructions Patient InstructionsChwhitney Sood APRN, CNP - 11/14/2018 8:40 AM SENIOR APPLICATIONS ANALYST Shingrix, check with insurance No new medication changes now Will call you with your lab results OR APPLICATIONS ANALYST documented in this encounter Progress Notes Yesenia Sood APRN, CNP - 11/14/2018 8:40 AM CST Estab Patient Visit Subjective Patient ID: Angeles Morales is a 57 y.o. female presenting for the following concerns. Chief Complaint Patient presents with ??? Medication Visit HPI: The patient is a pleasant 57-year-old female presenting ambulatory to the clinical setting today to review her type 2 diabetes. The patient's past medical history includes seasonal allergies, type 2 diabetes, hyperlipidemia, hypertension, insomnia, and stage III kidney disease after an episode of acute kidney injury. The patient is currently on glipizide 10 mg b.i.d., Januvia 50 mg daily, Lantus 36 units at bedtime,and NovoLog 6 units at lunch. The patient denies any side effects from the medication. The patient denies having any hypoglycemic episodes. She reports her morning fasting blood sugars are ranging between 120s- 130s, and in the summer she feels they are lower, even in the 100s. The patient is not as physically active now, as she is in the summertime, which may account for the rise in her blood sugars in the winter time. The patient???s last HGB A1c was 7.1 on 05/19/2018. The patient is on Norvasc 10 mgdaily and metoprolol 75 mg daily for her hypertension. The patient is not on an PAM inhibitor, because of her renal disease, and not on a baby aspirin, because of her low platelets. The patient is on Lipitor daily. The patient had a diabetic retinal eye exam in June. The patient denies any chest pain, discomfort, lightheadedness, dizziness, syncope, presyncope, and/or cardiac murmurs. The patient did have some lower extremity edema when she was at a retreat about 8 or 9 days ago, and likely from her feet being dependent, as the swelling resolved within a couple of days of returning home. The patient denies any peripheral neuropathy symptoms. The patient is not consistently exercising. She haspreviously received diabetic and nutritional education. She is a nonsmoker. The patient is requesting a prescription renewal for Trazodone, which has worked well for her insomnia. ROS: GENERAL: See HPI. The patient takes Trazodone 50 mg at bedtime for sleep. ENDOCRINOLOGY: The patient has a history of type 2 diabetes, currently on insulin and oral hypoglycemics, tolerating the medications without side effects, and is here for diabetic review. The following portions of the patient's chart were reviewed in this encounter and updated as appropriate: Tobacco Allergies Meds Med Hx Surg Hx Fam Hx Soc Hx Current Outpatient Medications: ??? amLODIPine (NORVASC) 10 MG tablet, Take 1 tablet (10 mg total) by mouth 1 (one) time each day, Disp: 90 tablet, Rfl: 3 ??? atorvastatin (LIPITOR) 10 MG tablet, Take 1 tablet by mouth 1 (one) time each day, Disp: , Rfl: ??? glipiZIDE (GLUCOTROL) 10 MG tablet, Take 1 tablet by mouth twice a day, Disp: , Rfl: ??? insulin aspart (NovoLOG FLEXPEN) 100 UNIT/ML injection, , Disp: , Rfl: ??? metoprolol succinate XL (TOPROL-XL) 25 MG 24 hr tablet, Take 25 mg by mouth 1 (one) time each day, Disp: , Rfl: ??? SITagliptin (JANUVIA) 50 MG tablet, Take 1 tablet by mouth 1 (one) time each day, Disp: , Rfl: ??? traZODone (DESYREL) 50 MG tablet, Take 1 tablet (50 mg total) by mouth every night Take 1 to 2 tabs by mouth as needed for sleep, Disp: 180 tablet, Rfl: 3 ??? loratadine (CLARITIN) 5 MG/5ML syrup, if needed, Disp: , Rfl: Lantus 36 units at bedtime Objective Visit Vitals BP 126/82 (BP Location: Left arm, Patient Position: Sitting) Pulse 67 Temp 36.8 ??C (98.2 ??F) (Temporal) Resp 16 Ht 1.623 m (5' 3.9) Wt 101 kg (223 lb 12.3 oz) SpO2 98% BMI 38.53 kg/m?? Smoking Status Never Smoker BSA 2.13 m?? GENERAL: The patient is alert, orientated, and in no apparent distress. CARDIOVASCULAR: Normal heart rate and rhythm. No murmur. No peripheral edema. RESPIRATORY: Lungs are clear bilaterally. NEUROLOGIC: Monofilament test normal x6 points on the soles of her feet. DIAGNOSTICS: Chem8, hemoglobin A1c, lipid, CBC with differential, and urine microalbumin. Assessment/Plan Angeles was seen today for medication visit. Diagnoses and all orders for this visit: Type 2 diabetes mellitus without complication, with long-term current use of insulin (Primary) - Lipid panel; Future - Hemoglobin A1c; Future - Basic metabolic panel; Future - Microalbumin/Creatinine Ratio; Future Insomnia, unspecified type - traZODone (DESYREL) 50 MG tablet; Take 1 tablet (50 mg total) by mouth every night Take 1 to 2 tabs by mouth as needed for sleep Thrombocytopenia - CBC Branch Off w/Diff; Future Discussed the plan of care with the patient. The patient will continue glipizide 10 mg b.i.d., Januvia 50 mg daily, Lantus 36 units at bedtime and NovoLog 6 units at lunch. She will continue Lipitor 10mg daily. Will not start aspirin therapy because of her low platelet count. The patient is not on anACE, which was discontinued because of renal failure. The patient is a nonsmoker. The patient had the Prevnar on 02/08/18, Pneumovax on 10/06/2016, Tdap on 08/12/2015 and influenza this season; she can consider the Shingrix. Renewed the trazodone as requested. The patient agrees and understands this planof care. Yesenia Sood APRN, REPRESENTATIVE OR APPLICATIONS ANALYST documented in this encounter Plan of Treatment Not on filedocumented as of this encounter Results (ABNORMAL) Microalbumin/Creatinine Ratio (11/14/2018 9:44 AM SENIOR APPLICATIONS ANALYST) Analysis Performed At Patho logist Time Signature Microalbumin,m 29.5 (H) 0.0 - 16.6 11/14/2018 [place] g/day mg/L 1:08 PM [facility] Comment: . Creatinine, Urine 154 mg/dL 11/14/2018 1:08 PM SENIOR APPLICATIONS ANALYST [facility] Comment: No established reference range. Microalb/Creat Ratio 19 0 - 24 mg/g 11/14/2018 1:0 8 PM SENIOR APPLICATIONS ANALYST [facility] Specimen Anatomical Collection Method Collection Time Receive d Time (Source) Location / / Volume Laterality Urine (Urine, 11/14/2018 9:44 AM 11/14/19 19 Clean Catch) SENIOR APPLICATIONS ANALYST 12:13 PM SENIOR APPLICATIONS ANALYST Yesenia Sood APRN, CNP LAB URINE ORDERABLES Performing Organization Address City/State/ZIP Code Phon e Number [facility] [address] [place] [address] (ABNORMAL) CBC Branch Off w/Diff (11/14/2018 9:37 AM SENIOR APPLICATIONS ANALYST) Patholo gist Method Time Signature WBC 8.4 3.5 - 10.5 11/14/2018 [facility] K/uL 9:56 AM SENIOR APPLICATIONS ANALYST [place] RBC 5.15 (H) 3.90 - 11/14/2018 [facility] 5.00 M/uL 9:56 AM SENIOR APPLICATIONS ANALYST [place] Hemoglobin 14.8 12.0 - 11/14/2018 [facility] 15.5 g/dL 9:56 AM SENIOR APPLICATIONS ANALYST [place] Hematocrit 43.4 35.0 - 11/14/2018 [facility] 44.0 % 9:56 AM SENIOR APPLICATIONS ANALYST [place] Platelets 133 (L) 150 - 450 11/14/2018 [facility] K/uL 9:56 AM SENIOR APPLICATIONS ANALYST [place] MCV 84.3 81.6 - 11/14/2018 [facility] 98.3 fL 9:56 AM SENIOR APPLICATIONS ANALYST [place] MCH 28.7 26.0 - 11/14/2018 [facility] 32.0 pg 9:56 AM SENIOR APPLICATIONS ANALYST [place] MCHC 34.1 32.0 - 11/14/2018 [facility] 36.0 g/dL 9:56 AM SENIOR APPLICATIONS ANALYST [place] RDW 12.2 11.9 - 11/14/2018 [facility] 15.5 % 9:56 AM SENIOR APPLICATIONS ANALYST [place] Lymphocytes % 15.3 (L) 18.0 - 11/14/2018 [facility] [place] 45.0 % 9:56 AM SENIOR APPLICATIONS ANALYST [place] Mid-size Cells 6.2 3.3 - 10.1 11/14/2018 [facility] % 9:56 AM SENIOR APPLICATIONS ANALYST [place] Granulocytes/Flip 78.5 (H) 45.8 - 11/14/2018 [facility] [place] trophils 73.7 % 9:56 AM SENIOR APPLICATIONS ANALYST [place] Lymphocytes 1.3 0.9 - 2.9 11/14/2018 [facility] [place] Absolute K/uL 9:56 AM SENIOR APPLICATIONS ANALYST [place] MIDS Absolute 0.5 0.2 - 0.8 11/14/2018 [facility] [place] K/uL 9:56 AM SENIOR APPLICATIONS ANALYST [place] Granulocytes/Flip 6.6 2.1 - 8.7 11/14/2018 [facility] trophils K/uL 9:56 AM SENIOR APPLICATIONS ANALYST [place] Absolute Specimen Anatomical Collection Method Collection Time Receive d Time (Source) Location / / Volume Laterality Blood (Blood, 11/14/2018 9:37 AM 11/14/19 19 9:43 Venous) SENIOR APPLICATIONS ANALYST AM SENIOR APPLICATIONS ANALYST Yesenia Sood FRAME STRIPPER AND CRUSHER, REPRESENTATIVE LAB BLOOD ORDERABLES Performing Organization Address City/State/ZIP Code Phon e Number [facility] [place] [address] [place] [address] (ABNORMAL) Basic metabolic panel (11/14/2018 9:37 AM SENIOR APPLICATIONS ANALYST) P athologist Signature Sodium 143 135 - 145 11/14/2018 [facility] [place] mmol/L 9:56 AM SENIOR APPLICATIONS ANALYST [place] Potassium 3.8 3.5 - 5.1 11/14/2018 [facility] [place] mmol/L 9:56 AM SENIOR APPLICATIONS ANALYST [place] Comment: . Chloride 103 98 - 107 mmol/L 11/14/2018 9:56 AM SENIOR APPLICATIONS ANALYST [facility] [place] Comment: . CO2 29 22 - 29 mmol/L 11/14/2018 9:56 AM SENIOR APPLICATIONS ANALYST [facility] [place] Comment: . Creatinine 1.4 (H) 0.4 - 1.2 mg/dL 11/14/2018 9:56 AM SENIOR APPLICATIONS ANALYST [facility] [place] Comment: . BUN 20 5 - 25 mg/dL 11/14/2018 9:56 AM SENIOR APPLICATIONS ANALYST [facility] [place] Comment: . Glucose 168 (H) 70 - 100 mg/dL 11/14/2018 9:56 AM SENIOR APPLICATIONS ANALYST [facility] [place] Calcium, Total,S 9.5 8.4 - 10.2 mg/dL 11/14/2018 9:56 AM SENIOR APPLICATIONS ANALYST [facility] [place] Comment: . Fasting? Yes 11/14/2018 9:44 AM SENIOR APPLICATIONS ANALYST [facility] [place] Specimen Anatomical Collection Method Collection Time Receive d Time (Source) Location / / Volume Laterality Blood (Blood, 11/14/2018 9:37 AM 11/14/19 9:43 Venous) SENIOR APPLICATIONS ANALYST AM SENIOR APPLICATIONS ANALYST Yesenia Sood APRN, CNP LAB BLOOD ORDERABLES Performing Organization Address City/State/ZIP Code Phon e Number [facility] [place] [address] [place] [address] (ABNORMAL) Hemoglobin A1c (11/14/2018 9:37 AM SENIOR APPLICATIONS ANALYST) Analysis Performed At Patho logist Time Signature Hemoglobin A1C 8.7 (H) 4.0 - 5.6 11/14/2018 JENN[place]ER % A1C 1:17 PM [facility] Comment: Reference Range 4.0-5.6% [...] Location / / Volume Laterality Blood (Blood, 11/14/2018 9:37 AM 11/14/19 Venous) SENIOR APPLICATIONS ANALYST 12:13 PM SENIOR APPLICATIONS ANALYST Yesenia Sood APRN, MINESH LAB BLOOD ORDERABLES Performing Organization Address City/State/ZIP Code Phon e Number [facility] [address] [place] [address] (ABNORMAL) Lipid panel (11/14/2018 9:37 AM SENIOR APPLICATIONS ANALYST) P athologist Signature Cholesterol 138 0 - 199 11/15/2018 [facility] mg/dL 1:30 PM [facility] Comment: Recommended by National Cholesterol Education Program (ATP III) -------- Cholesterol Ranges -------- <200 ? Desirable 200-239 ? Borderline high >=240 ? High Triglycerides 192 (A) 0 - 149 mg/dL 11/15/2018 1:30 PM [facility] Comment: -------- TRIG Ranges -------- <150 ?Normal 150-199 ? Borderline high 200-499 ? High >=500 ? Very high HDL 33 (A) 40 - 60 mg/dL 11/15/2018 1:30 PM [facility] Comment: -------- HDL Ranges -------- <40 ?Low 40-59 ?Normal >=60 ? Optimal LDL Calculated 67 0 - 99 mg/dL 11/15/2018 1:30 PM [facility] Comment: -------- LDL Ranges -------- <100 ? Optimal 100-129 ?Near optimal/above op timal 130-159 ?Borderline high 160-189 ?High >=190 ?Very high Specimen Anatomical Collection Method Collection Time Receive d Time (Source) Location / / Volume Laterality Blood (Blood, 11/14/2018 9:37 AM 11/15/19 19 Venous) SENIOR APPLICATIONS ANALYST 12:52 PM SENIOR APPLICATIONS ANALYST Yesenia Sood APRN REPRESENTATIVE LAB BLOOD ORDERABLES Performing Organization Address City/State/ZIP Code Phon e Number [facility] [address] [place] [address] documented in this encounter Visit Diagnoses Diagnosis Type 2 diabetes mellitus without complic ation, with long-term current use of insulin (HCC) - Primary Insomnia, unspecified type Thrombocytopenia (HCC) Unspecified thrombocytopenia documented in this encounter Care Teams Entry Level Drafter Relationship Specialty Start Date End Date Yesenia Sood APRN, REPRESENTATIVE PCP - General 05/17/18 06/17/20 [address] [place], [place] [address] documented as of this encounter
--- OUTSIDE RECORDS SUMMARY | 2022-07-27 09:22 | XMS_ITS | Encounter Summary ---
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 Patient will call to schedule that closer to her due date. documented in this encounter Plan of Treatment Not on filedocumented as of this encounter Visit Diagnoses Not on filedocumented in this encounter Care Teams Electromechanical Equipment Assembler Relationship Specialty Start Date End Date Yesenia Sood, SUPERVISOR ENROBING, MEDICAL COLLECTIONS PCP - General 05/17/18 06/17/20 [address] [facility] [place] [place] [address] documented as of this encounter
--- OUTSIDE RECORDS SUMMARY | 2022-07-27 09:22 | XMS_ITS | Encounter Summary ---
:1960 Author Organization [facility] Address [address] [place] [address] Care Team Providers Name Role Phone Yesenia Sood HEALTH TECHNICIAN, SOFT TILE SETTER Primary Care Provider [phone] Reason for Visit Reason Onset Date Comments GLUCOSE METER 11/23/2018 refill Encounter Details Date Type Department Care Team Description 11/23/2018 Telephone [place] Yesenia Sood, GLUCOSE METER (refill) [address] HEALTH TECHNICIAN, SOFT TILE SETTER [place], [place] [address] [address] [facility] [address] [phone] [place], [place] [address] Social History Tobacco Use [...] at Date Recorded 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 DEVELOPER Telephone Encounter - Lili Lucero RN - 11/24/2018 8:33 AM CST Please fax to [facility] in [place]. DEVELOPER Telephone Encounter - Yesenia Sood APRN, CNP - 11/23/2018 2:32 PM DBA DEVELOPER Signed. Thank you Lili for doing this much appreciated. Please call the patient and let her know this has been sent, and only if you feel she needs the callback. Alberto DEVELOPER Telephone Encounter - Lili Lucero RN - 11/23/2018 2:26 PM CST Patient requesting Rx for a new Accucheck Betsey Plus meter with lancets and test strips be sent to [facility] In . Pended for your review. DEVELOPER Telephone Encounter - Michelle Thompson - 11/23/2018 1:43 PM CST The patient would like to speak with Alberto regarding her glucose meter. DEVELOPER documented in this encounter Plan of Treatment Not on filedocumented as of this encounter Visit Diagnoses Diagnosis Type 2 diabetes mellitus without complic ation, with long-term current use of insulin (HCC) - Primary documented in this encounter Care Teams Firearms Assembly Supervisor Relationship Specialty Start Date End Date Yesenia Sood APRN, SOFT TILE SETTER PCP - General 05/17/18 06/17/20 100 [place] [address] documented as of this encounter
--- OUTSIDE RECORDS SUMMARY | 2022-07-27 09:22 | XMS_ITS | Encounter Summary ---
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 GLOMERULAR Routine 11/14/2018 9:37 Type 2 diabetes mellitus Results for this FILTRATION RATE AM DRY PRESS OPERATOR without complication, pro cedure are in with long-term current the r esults use of insulin ([facility]) section . CBC BRANCH OFFICE Routine 11/14/2018 9:37 Thrombocytopenia (HC C) Results for this W/DIFF AM DRY PRESS OPERATOR procedure are i n the results section. HEMOGLOBIN A1C Routine 11/14/2018 9:37 Type 2 diabetes mellitu s Results for this AM DRY PRESS OPERATOR without complication, proced ure are in with long-term current the r esults use of insulin ([facility]) section . LIPID PANEL Routine 11/14/2018 9:37 Type 2 diabetes mellitus Results for this AM DRY PRESS OPERATOR without complication, proced ure are in with long-term current the r esults use of insulin ([facility]) section . BASIC METABOLIC Routine 11/14/2018 9:37 Type 2 diabetes mellit us Results for this PANEL AM DRY PRESS OPERATOR without complication, proced ure are in with long-term current the r esults use of insulin ([facility]) section . documented in this encounter Results (ABNORMAL) Microalbumin/Creatinine Ratio (11/14/2018 9:44 AM DRY PRESS OPERATOR) Analysis Performed At Patho logist Time Signature Microalbumin,m 29.5 (H) 0.0 - 16.6 11/14/2018 [place] g/day mg/L 1:08 PM [facility] Comment: . Creatinine, Urine 154 mg/dL 11/14/2018 1:08 PM [facility] Comment: No established reference range. Microalb/Creat Ratio 19 0 - 24 mg/g 11/14/2018 1:0 8 PM [facility] Specimen Anatomical Collection Method Collection Time Receive d Time (Source) Location / / Volume Laterality Urine (Urine, 11/14/2018 9:44 AM 11/14/19 19 Clean Catch) DRY PRESS OPERATOR 12:13 PM DRY PRESS OPERATOR Yesenia Sood APRN, ACADEMIC INTERN LAB URINE ORDERABLES Performing Organization Address City/State/ZIP Code Phon e Number [facility] [address] [place] [id number] (ABNORMAL) Glomerular filtration rate (GFR) (11/14/2018 9:37 AM DRY PRESS OPERATOR) P athologist Signature GFR 39 (A) 11/14/2018 [facility] 9:56 AM [facility] 47 (A) 11/14/2018 [facility] Icelandic GFR 9:56 AM [facility] Comment: GFR calculated from serum creatinine v alue Chronic Kidney Disease less than 60 mL/m in/1.73 m2 Kidney Failure less than 15 mL/min/1.73 m2 Note: effective 02/23/07 IDMS-Traceable MDRD Study Equation used. Specimen Anatomical Collection Method Collection Time Receive d Time (Source) Location / / Volume Laterality 11/14/2018 9:37 AM 9 9:37 DRY PRESS OPERATOR AM DRY PRESS OPERATOR Yesenia Sood APRN ACADEMIC INTERN LAB BLOOD ORDERABLES Performing Organization Address City/State/ZIP Code Phon e Number [facility] [address] [place] [address] (ABNORMAL) Lipid panel (11/14/2018 9:37 AM DRY PRESS OPERATOR) athologist Signature Cholesterol 138 0 - 199 11/15/2018 [facility] mg/dL 1:30 PM [facility] Comment: Recommended by National Cholesterol Education Program (ATP III) -------- Cholesterol Ranges -------- <200 ? Desirable 200-239 ? Borderline high >=240 ? High Triglycerides 192 (A) 0 - 149 mg/dL 11/15/2018 1:30 PM [facility] Comment: -------- TRIG Ranges -------- <150 ?Normal 150-199 ? Borderline high 200-499 ? High >=500 ? Very high HDL 33 (A) 40 - 60 mg/dL 11/15/2018 1:30 PM [facility] Comment: -------- HDL Ranges -------- <40 ?Low 40-59 ?Normal >=60 ? Optimal LDL Calculated 67 0 - 99 mg/dL 11/15/2018 1:30 PM [facility] Comment: -------- LDL Ranges -------- <100 ? Optimal 100-129 ?Near optimal/above op timal 130-159 ?Borderline high 160-189 ?High >=190 ?Very high Specimen Anatomical Collection Method Collection Time Receive d Time (Source) Location / / Volume Laterality Blood (Blood, 11/14/2018 9:37 AM 11/15/19 19 Venous) DRY PRESS OPERATOR 12:52 PM DRY PRESS OPERATOR Yesenia Sood APRN, ACADEMIC INTERN LAB BLOOD ORDERABLES Performing Organization Address [facility] e Number [facility] [address] [place], [place] [id number] (ABNORMAL) Hemoglobin A1c (11/14/2018 9:37 AM DRY PRESS OPERATOR) Analysis Performed At Patho logist Time Signature Hemoglobin A1C 8.7 (H) 4.0 - 5.6 11/14/2018 [place] % A1C 1:17 PM DRY PRESS OPERATOR [facility] Comment: Reference Range 4.0-5.6% is [...] Blood (Blood, 11/14/2018 9:37 AM 11/14/19 19 Venous) DRY PRESS OPERATOR 12:13 PM DRY PRESS OPERATOR Yesenia Sood APRN, ACADEMIC INTERN LAB BLOOD ORDERABLES Performing Organization Address [facility] e Number [facility] [address] [place], [place] [phone] (ABNORMAL) Basic metabolic panel (11/14/2018 9:37 AM DRY PRESS OPERATOR) P athologist Signature Sodium 143 135 - 145 11/14/2018 [facility] mmol/L 9:56 AM DRY PRESS OPERATOR [place] Potassium 3.8 3.5 - 5.1 11/14/2018 [facility] mmol/L 9:56 AM DRY PRESS OPERATOR [place] Comment: . Chloride 103 98 - 107 mmol/L 11/14/2018 9:56 AM DRY PRESS OPERATOR [facility] [place] Comment: . CO2 29 22 - 29 mmol/L 11/14/2018 9:56 AM DRY PRESS OPERATOR [facility] [place] Comment: . Creatinine 1.4 (H) 0.4 - 1.2 mg/dL 11/14/2018 9:56 AM DRY PRESS OPERATOR [facility] [place] Comment: . BUN 20 5 - 25 mg/dL 11/14/2018 9:56 AM DRY PRESS OPERATOR [facility] [place] Comment: . Glucose 168 (H) 70 - 100 mg/dL 11/14/2018 9:56 AM DRY PRESS OPERATOR [facility] [place] Calcium, Total,S 9.5 8.4 - 10.2 mg/dL 11/14/2018 9:56 AM DRY PRESS OPERATOR [facility] [place] Comment: . Fasting? Yes 11/14/2018 9:44 AM DRY PRESS OPERATOR [facility] [place] Specimen Anatomical Collection Method Collection Time Receive d Time (Source) Location / / Volume Laterality Blood (Blood, 11/14/2018 9:37 AM 11/14/19 19 9:43 Venous) DRY PRESS OPERATOR AM DRY PRESS OPERATOR Yesenia Sood APRN, ACADEMIC INTERN LAB BLOOD ORDERABLES Performing Organization Address City/State/ZIP Code Phon e Number [facility] [place] [address] [place] [address] (ABNORMAL) CBC Branch Off w/Diff (11/14/2018 9:37 AM DRY PRESS OPERATOR) [facility] gist Method Time Signature WBC 8.4 3.5 - 10.5 11/14/2018 [facility] [place] K/uL 9:56 AM DRY PRESS OPERATOR [place] RBC 5.15 (H) 3.90 - 11/14/2018 [facility] 5.00 M/uL 9:56 AM DRY PRESS OPERATOR [place] Hemoglobin 14.8 12.0 - 11/14/2018 [facility] 15.5 g/dL 9:56 AM DRY PRESS OPERATOR [place] Hematocrit 43.4 35.0 - 11/14/2018 [facility] 44.0 % 9:56 AM DRY PRESS OPERATOR [place] Platelets 133 (L) 150 - 450 11/14/2018 [facility] K/uL 9:56 AM DRY PRESS OPERATOR [place] MCV 84.3 81.6 - 11/14/2018 [facility] 98.3 fL 9:56 AM DRY PRESS OPERATOR [place] MCH 28.7 26.0 - 11/14/2018 [facility] 32.0 pg 9:56 AM DRY PRESS OPERATOR [place] MCHC 34.1 32.0 - 11/14/2018 [facility] 36.0 g/dL 9:56 AM DRY PRESS OPERATOR [place] RDW 12.2 11.9 - 11/14/2018 [facility] [place] 15.5 % 9:56 AM DRY PRESS OPERATOR [place] Lymphocytes % 15.3 (L) 18.0 - 11/14/2018 [facility] [place] 45.0 % 9:56 AM DRY PRESS OPERATOR [place] Mid-size Cells 6.2 3.3 - 10.1 11/14/2018 [facility] [place] % 9:56 AM DRY PRESS OPERATOR [place] Granulocytes/Flip 78.5 (H) 45.8 - 11/14/2018 [facility] [place] trophils 73.7 % 9:56 AM DRY PRESS OPERATOR [place] Lymphocytes 1.3 0.9 - 2.9 11/14/2018 [facility] [place] Absolute K/uL 9:56 AM DRY PRESS OPERATOR [place] MIDS Absolute 0.5 0.2 - 0.8 11/14/2018 [facility] [place] K/uL 9:56 AM DRY PRESS OPERATOR [place] Granulocytes/Flip 6.6 2.1 - 8.7 11/14/2018 [facility] [place] trophils K/uL 9:56 AM DRY PRESS OPERATOR [place] Absolute Specimen Anatomical Collection Method Collection Time Receive d Time (Source) Location / / Volume Laterality Blood (Blood, 11/14/2018 9:37 AM 11/14/19 19 9:43 Venous) DRY PRESS OPERATOR AM DRY PRESS OPERATOR Yesenia Sood APRN, ACADEMIC INTERN LAB BLOOD ORDERABLES Performing Organization Address City/State/ZIP Code Phon e Number [facility] [address] [place] [address] documented in this encounter Visit Diagnoses Diagnosis Thrombocytopenia (HCC) Unspecified thrombocytopenia Type 2 diabetes mellitus without complic ation, with long-term current use of insulin (HCC) Hyperlipoproteinemia Other and unspecified hyperlipidemia documented in this encounter Care Teams Call Center Associate Relationship Specialty Start Date End Date Yesenia Sodo APRN, ACADEMIC INTERN PCP - General 05/17/18 06/17/[address] [place] [address] [place] [address] documented as of this encounter
--- OUTSIDE RECORDS SUMMARY | 2022-07-27 09:22 | XMS_ITS | Encounter Summary ---
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
--- OUTSIDE RECORDS SUMMARY | 2022-07-27 09:22 | XMS_ITS | Encounter Summary ---
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 Denies symptoms. BP taken with her home wrist cuff at 186/99 P 63. Automated cuff from clinic reading of 150/75. Please advise. documented in this encounter Plan of Treatment Not on filedocumented as of this encounter Visit Diagnoses Not on filedocumented in this encounter Care Teams Complex Care Nurse Practitioner Relationship Specialty Start Date End Date Yesenia Sood APRN, BOOK JOGGER PCP - General 05/17/18 06/17/20 [address] [place] [address] documented as of this encounter
--- OUTSIDE RECORDS SUMMARY | 2022-07-27 09:22 | XMS_ITS | Encounter Summary ---
:1960 Author Organization [facility] Address [address] [place] [address] Care Team Providers Name Role Phone Yesenia Sood APRN, MINESH Primary Care Provider Reason for Visit Reason Onset Date Comments registry 11/03/2018 Encounter Details Date Type Department Care Team Description 11/03/2018 Telephone [place] Yesenia Sood, registry [address] [place], [place], [place] [address] [facility] [phone] [place], [place] [address] Social History Tobacco Use Types Packs/Day Years Used Date Never Assessed Alcohol Habits Answer Date Recorded How often do you have a drink containing alcohol? Never 03/22/2020 How many drinks containing alcohol do you have on a typical Not asked day when you are drinking? How often do you have six or more drinks on one occasion? 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 GER REAL ESTATE Telephone Encounter - Francisca Mejia - 11/10/2018 9:00 AM CST Spoke with Pt about fasting labs and office visit with Alberto Sood, she will call back another day to make this appt. GER REAL ESTATE Telephone Encounter - Yesenia Sood APRN, CNP - 11/10/2018 8:48 AM MANAGER REAL ESTATE The orders have been signed, please contact the patient, and schedule. GER REAL ESTATE Telephone Encounter - Lili Lucero RN - 11/09/2018 1:48 PM CST Patient is due for a visit with fasting labs in 11/29. Please sign orders and send to scheduling. GER REAL ESTATE Telephone Encounter - Lili Lucero RN - 11/03/2018 12:53 PM CST Please call patient to schedule a nurse only blood pressure check as it was elevated at her last visit. GER REAL ESTATE documented in this encounter Plan of Treatment Not on filedocumented as of this encounter Visit Diagnoses Diagnosis Type 2 diabetes mellitus without complic ation, with long-term current use of insulin (HCC) - Primary Hyperlipoproteinemia Other and unspecified hyperlipidemia documented in this encounter Care Teams Stone Polisher Relationship Specialty Start Date End Date Yesenia Sood APRN, CNP PCP - General 05/17/18 06/17/20 100 [facility] [place] [address] documented as of this encounter
--- OUTSIDE RECORDS SUMMARY | 2022-07-27 09:22 | XMS_ITS | Encounter Summary ---
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. documented in this encounter Plan of Treatment Not on filedocumented as of this encounter Visit Diagnoses Not on filedocumented in this encounter Care Teams Business Database Analyst Relationship Specialty Start Date End Date Yesenia Sood APRN, MANAGER UNIX PCP - General 05/17/18 06/17/20 [address] [facility] [place] [address] documented as of this encounter
--- OUTSIDE RECORDS SUMMARY | 2022-07-27 09:22 | XMS_ITS | Encounter Summary ---
:1960 Author Organization [facility] Address [address] [place] [address] Care Team Providers Name Role Phone Yesenia Sood APRN, CNP Primary Care Provider [phone] Reason for Referral Consultation (Routine) - Closed Specialty Diagnoses / Procedures Referred By Contact Refer red To Contact Diagnoses Bilateral lower extremity edema Essential hypertension Snoring Yesenia Sood [facility] MINESH HANSEN [address] [place] [address] Referral ID Status Reason Start Date Expiration Date Visits Requ ested Visits Authorized [id number] Closed 02/09/2019 02/10/2020 1 1 Reason for Visit Reason Comments Diabetes Encounter Details Date Type Department Care Team Description 02/09/2019 Office Visit Gonzalo Brewster Yesenia Sood Type 2 diabetes mellitus wit h complication, with long-term current use of insulin (HCC) (Primary Dx); [address] [place] CNP Essential hypertension; [place], [place] [address] Snoring; [address] [place], [place] Discoloration of skin of low er leg; [phone] [address] Bilateral lower extremity edema; [phone] Thrombocytopeni a (HCC) (Work) Social History Tobacco Use Types Packs/Day Years [...] at Date Recorded 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 documented as of this encounter Last Filed Vital Signs Vital Sign Reading Time Taken Comments Blood Pressure 128/70 02/09/2019 8:10 AM CDT Pulse 68 02/09/2019 8:10 AM CDT Temperature 36.6 ??C (97.8 ??F) 02/09/2019 8:10 AM CDT Respiratory Rate 16 02/09/2019 8:10 AM CDT Oxygen Saturation 98% 02/09/2019 8:10 AM CDT Inhaled Oxygen Concentration - - Weight 103 kg (226 lb 6.6 oz) 02/09/2019 8:10 AM CDT Height 162.3 cm (5' 3.9) 02/09/2019 8:10 AM CDT Body Mass Index 38.99 02/09/2019 8:10 AM CDT documented in this encounter Patient Instructions Patient InstructionsChwhitney Sood APRN, CNP - 02/09/2019 8:00 AM CDT Decrease Norvasc to 5 mg daily, monitor blood pressure and pulse, bring the blood pressure machine in for comparison Will call with the lab results Overnight oximetry through [employer] in [place] documented in this encounter Progress Notes Yesenia Sood APRN, CNP - 02/09/2019 8:00 AM CDT Estab Patient Visit Subjective Patient ID: Angeles Morales is a 58 y.o. female presenting for the following concerns. Chief Complaint Patient presents with ??? Diabetes HPI: The patient is a pleasant 58-year-old female presenting ambulatory to the clinical setting today to review her type 2 diabetes and bilateral lower extremity edema. The patient's past medical history includes seasonal allergies, type 2 diabetes, hyperlipidemia, hypertension, insomnia, and stage III kidney disease after an episode of acute kidney injury. The patient is currently on glipizide 10 mg b.i.d., Januvia 50 mg daily, Lantus 38 units at bedtime,and NovoLog 5 units at lunch and supper; the patient increased her Lantus from 36 units to 38 units,and her NovoLog from 6 units at lunch to 10 units/day after her last hemoglobin A1c on 11/14/2018 was 8.7. The patient denies any side effects from the medication or hypoglycemic episodes. She reports her morning fasting blood sugars are ranging between 80s to 120s, having one at 75, which did not causeher to feel hypoglycemic. The patient is on Norvasc 10 mg daily, and metoprolol 75 mg daily, for herhypertension. The patient is not on an PAM inhibitor, because of her renal disease, and not on a baby aspirin, because of her low platelets. The patient is on Lipitor daily which she tolerates. The patient had a diabetic retinal eye exam in June. The patient has numbness and tingling in her hands, which is not new nor worsening. No numbness or tingling in her feet. The patient is not consistently exercising. She has previously received diabetic and nutritional education. The patient reports overall she has felt well, healthier, since she retired last fall. The patient has had lower extremity edema since October, which is worsening, and not resolving overnight. The patient reports the edema is significant, causing swelling in her ankles, to the point she has a decreased range of range of motion, making ambulation difficult. The patient reports the swelling no longer resolves overnight. The patient reports the swelling causes itching, and she obtained a sore in her right lower leg as a result. No fever, no chills. The patient denies chest pain, discomfort, lightheadedness, dizziness, syncope, presyncope, and/or cardiac murmurs. The patient has been elevating her lower extremities, ambulating, and is wearing compression stockings, which seems to help decrease the swelling. The patient's Norvasc was decreased from 10 mg to 5 mg in March,, for lowerextremity edema, which resolved after the dose adjustment. She is a nonsmoker. The patient reports her cousin was diagnosed with leukemia, which concerns the patient, with her persistent low platelets. ROS: GENERAL: No fever, no chills. INTEGUMENTARY: The patient scratched her right lower extremity because of itching from the swelling. EYES: No visual changes. The patient sees an eye doctor on a regular basis. CARDIOVASCULAR: See HPI. The patient has had bilateral lower extremity edema since October, which isworsening, as the swelling no longer resolves overnight. The patient reports the swelling is causingitching and at times the ankle swelling is so significant, she has a hard time walking. The patient reports her swelling is better if she elevates her lower extremities, walks, and wears compression stockings. No chest pain, pressure, palpitations, lightheadedness, dizziness, presyncope, syncope, and/or cardiac murmurs. RESPIRATORY: No dyspnea on exertion, cough, asthma and/or wheezing. The patient does snore, no history of sleep apnea. BREASTS: The patient is scheduled for mammogram today. MUSCULOSKELETAL: The patient has experienced intermittent limited range of motion in her ankles because of the swelling. NEUROLOGICAL: The patient does experience numbness and tingling in her hands, which is not new nor worsening. No numbness or tingling in her feet. The following portions of the patient's chart were reviewed in this encounter and updated as appropriate: Tobacco Allergies Meds Problems Med Hx Surg Hx Fam Hx Soc Hx Objective Visit Vitals BP 128/70 (BP Location: Left arm, Patient Position: Sitting) Pulse 68 Temp 36.6 ??C (97.8 ??F) (Temporal) Resp 16 Ht 1.623 m (5' 3.9) Wt 103 kg (226 lb 6.6 oz) SpO2 98% BMI 38.99 kg/m?? Smoking Status Never Smoker BSA 2.15 m?? GENERAL: The patient is alert, orientated, and in no apparent distress. INTEGUMENTARY: Examining the skin of her lower extremities, there is a pink hue from a scratch in her right medial malleolus, which extends up across the anterior watts just below the knee, which is slightly warmer to touch, which the patient feels has been there for the past 3 weeks. CARDIOVASCULAR: Normal heart rate and rhythm. No murmur. Peripheral edema from below her knees distally more prevalent over the dorsal aspect of her feet. RESPIRATORY: Lungs are clear, bilaterally. No wheezing. Oxygen level is 98% on room air. MUSCULOSKELETAL: The patient moves freely about the room. DIAGNOSTICS: Hemoglobin A1c, CBC with differential, and BMP. Assessment/Plan Angeles was seen today for diabetes. Diagnoses and all orders for this visit: Type 2 diabetes mellitus with complication, with long-term current use of insulin (Primary) - Hemoglobin A1c; Future Essential hypertension - amLODIPine (NORVASC) 5 MG tablet; Take 1 tablet (5 mg total) by mouth 1 (one) time each day - Ambulatory External Referral Snoring - Ambulatory External Referral Discoloration of skin of lower leg Bilateral lower extremity edema - Basic metabolic panel; Future - Ambulatory External Referral Thrombocytopenia - CBC Branch Off w/Diff; Future Discussed the plan of care with the patient. The patient will continue Metoprolol XL 75 mg daily. Decreased the patient's Norvasc from 10 mg daily, to 5 mg, and will closely monitor her blood pressure,pulse, and lower extremity edema; with the blood pressure goal of 120/70. The patient will continue Lantus 38 units daily and NovoLog 5 units with lunch and supper, Januvia 50 mg daily, and glipizide 10 mg twice daily, until the hemoglobin A1c results have been reviewed. Will proceed with an overnightoximeter. The patient will be notified of her lab results and any further recommendations. The patient will continue to monitor her right lower extremity, and if increasing swelling, redness, would consider antibiotic therapy. She will continue Lipitor 10 mg daily. Will not start aspirin therapy because of her low platelet count, will try discuss this with hematology, and notify the patient of any recommendations. The patient is not on an PAM, which was discontinued because of renal failure. The patient is a nonsmoker. The patient had the Prevnar on 02/08/18, Pneumovax on 10/06/2016, and Tdap on 08/12/2015. The patient agrees and understands this plan of care. Yesenia Sood APRN, MANAGER CAREER documented in this encounter Plan of Treatment Scheduled Referrals Name Type Priority Associated Order Schedule Diagnoses Ambulatory External Outpatient Referral Routine Bilateral lowe r Ordered: Referral extremity edema 02/09/2019 Essential hypertension Snoring documented as of this encounter Results (ABNORMAL) Basic metabolic panel (02/09/2019 8:56 AM CDT) Analysis Performed At Patho logist Time Signature Sodium 142 135 - 145 02/09/2019 JENN[place]ER mEq/L 1:00 PM CDT [facility] Potassium 4.1 3.5 - 5.1 02/09/2019 JENN[place]ER mEq/L 1:00 PM [facility] Chloride 106 98 - 107 02/09/2019 JENN[place]ER mEq/L 1:00 PM [facility] CO2 27 22 - 29 02/09/2019 JENN[facility]ER mmol/L 1:00 PM [facility] Creatinine 1.6 (H) 0.4 - 1.2 02/09/2019 [place]ENN[place]ER mg/dL 1:00 PM [facility] BUN 22 5 - 25 02/09/2019 JENN[place]ER mg/dL 1:00 PM [facility] Glucose 158 (H) 70 - 100 02/09/2019 [place]ENN[place]ER mg/dL 1:00 PM [facility] Calcium, 9.5 8.4 - 10.2 02/09/2019 [place]ENN[place]ER Total,S mg/dL 1:00 PM [facility] Fasting? Yes 02/09/2019 [facility] [place] 9:04 AM CDT [place] Specimen Anatomical Collection Method Collection Time Receive d Time (Source) Location / / Volume Laterality Blood (Blood, 02/09/2019 8:56 AM 02/10/20 19 9:04 Venous) CDT AM CDT Yesenia Sood APRN, MANAGER CAREER LAB BLOOD ORDERABLES Performing Organization Address City/State/ZIP Code Phon e Number [facility] [address] [place] [address] [facility] [address] [place] [address] LABORATORY (ABNORMAL) CBC Branch Off w/Diff (02/09/2019 8:56 AM CDT) [facility] Method Time Signature WBC 7.6 3.5 - 10.5 02/09/2019 [facility] [place] K/uL 9:06 AM CDT [place] RBC 4.99 3.90 - 02/09/2019 [facility] [place] 5.00 M/uL 9:06 AM CDT [place] Hemoglobin 14.4 12.0 - 02/09/2019 [facility] [place] 15.5 g/dL 9:06 AM CDT [place] Hematocrit 42.1 35.0 - 02/09/2019 [facility] [place] 44.0 % 9:06 AM CDT [place] Platelets 117 (L) 150 - 450 02/09/2019 [facility] [place] K/uL 9:06 AM CDT [place] MCV 84.4 81.6 - 02/09/2019 [facility] [place] 98.3 fL 9:06 AM CDT [place] MCH 28.9 26.0 - 02/09/2019 [facility] [place] 32.0 pg 9:06 AM CDT [place] MCHC 34.2 32.0 - 02/09/2019 [facility] [place] 36.0 g/dL 9:06 AM CDT [place] RDW 12.2 11.9 - 02/09/2019 [facility] [place] 15.5 % 9:06 AM CDT [place] Lymphocytes % 15.0 (L) 18.0 - 02/09/2019 [facility] [place] 45.0 % 9:06 AM CDT [place] Mid-size Cells 7.6 3.3 - 10.1 02/09/2019 [facility] [place] % 9:06 AM CDT [place] Granulocytes/Flip 77.4 (H) 45.8 - 02/09/2019 [facility] [place] trophils 73.7 % 9:06 AM CDT [place] Lymphocytes 1.1 0.9 - 2.9 02/09/2019 [facility] [place] Absolute K/uL 9:06 AM CDT [place] MIDS Absolute 0.6 0.2 - 0.8 02/09/2019 [facility] [place] K/uL 9:06 AM CDT [place] Granulocytes/Flip 5.9 2.1 - 8.7 02/09/2019 [facility] [place] trophils K/uL 9:06 AM CDT [place] Absolute Specimen Anatomical Collection Method Collection Time Receive d Time (Source) Location / / Volume Laterality Blood (Blood, 02/09/2019 8:56 AM 02/10/20 19 9:04 Venous) CDT AM CDT Yesenia Sood APRN, MANAGER CAREER LAB BLOOD ORDERABLES Performing Organization Address City/State/ZIP Code Phon e Number [facility] [place] [address] [place] [address] (ABNORMAL) Hemoglobin A1c (02/09/2019 8:56 AM CDT) Analysis Performed At Patho logist Time Signature Hemoglobin A1C 7.3 (H) 4.0 - 5.6 02/09/2019 [place]ENN[place]ER % A1C 1:18 PM CDT [facility] [...] CDT 12:10 PM CDT Yesenia Sood APRN, MANAGER CAREER LAB BLOOD ORDERABLES Performing Organization Address City/State/ZIP Code Phon e Number [facility] [address] [place] [address] documented in this encounter Visit Diagnoses Diagnosis Type 2 diabetes mellitus with complicati on, with long-term current use of insulin (HCC) - Primary Essential hypertension Unspecified essential hypertension Snoring Other dyspnea and respiratory abnormalit y Discoloration of skin of lower leg Bilateral lower extremity edema Thrombocytopenia (HCC) Unspecified thrombocytopenia documented in this encounter Care Teams Manager Career Relationship Specialty Start Date End Date Yesenia Sood APRN, MANAGER CAREER PCP - General 05/17/18 06/17/20 [address] [place] [address] documented as of this encounter
--- OUTSIDE RECORDS SUMMARY | 2022-07-27 09:22 | XMS_ITS | Encounter Summary ---
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 TEGY EXECUTION CONSULTANT documented in this encounter Plan of Treatment Not on filedocumented as of this encounter Visit Diagnoses Not on filedocumented in this encounter Care Teams Block Sawyer Relationship Specialty Start Date End Date Yesenia Sood APRN, CNP PCP - General 05/17/18 06/17/[address] [place] [address] documented as of this encounter
--- OUTSIDE RECORDS SUMMARY | 2022-07-27 09:22 | XMS_ITS | Encounter Summary ---
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 Provided them with Info from labs drawn on 11/29 Telephone Encounter - Shila Mitchell - 02/10/2019 9:41 AM CDT Katalina from [facility] is needing clarification on RX. Please call her at [phone]. documented in this encounter Plan of Treatment Not on filedocumented as of this encounter Visit Diagnoses Not on filedocumented in this encounter Care Teams Parish Worker Relationship Specialty Start Date End Date Yesenia Sood APRN, SOLE STAPLER WELT PCP - General 05/17/18 06/17/20 [address] [facility] [place] [address] documented as of this encounter
--- OUTSIDE RECORDS SUMMARY | 2022-07-27 09:23 | XMS_ITS | Encounter Summary ---
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 Slightly elevated today, asked that she come back in a week to have it rechecked. Please advise if you'd like to make any adjustments to anything prior to that. E DATA SPECIALIST documented in this encounter Plan of Treatment Not on filedocumented as of this encounter Visit Diagnoses Not on filedocumented in this encounter Care Teams Expressive Art Therapist Relationship Specialty Start Date End Date Yesenia Sood APRN, SAILING MASTER PCP - General 05/17/18 06/17/20 [address] [facility] [place] [address] documented as of this encounter
--- OUTSIDE RECORDS SUMMARY | 2022-07-27 09:23 | XMS_ITS | Encounter Summary ---
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 The patient lower extremity edema is a side effect of the medication. CARE PROVIDER documented in this encounter Plan of Treatment Not on filedocumented as of this encounter Visit Diagnoses Not on filedocumented in this encounter Care Teams Counter Waiter Relationship Specialty Start Date End Date Yesenia Sood APRN, CNP PCP - General 05/17/18 06/17/[address] [place], [place] [id number] documented as of this encounter
--- OUTSIDE RECORDS SUMMARY | 2022-07-27 09:23 | XMS_ITS | Encounter Summary ---
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 TING MACHINE OPERATOR AUTOMATIC documented in this encounter Plan of Treatment Not on filedocumented as of this encounter Visit Diagnoses Diagnosis Insomnia, unspecified type - Primary documented in this encounter Care Teams Pensionholder Information Clerk Relationship Specialty Start Date End Date Yesenia Sood APRN, MINESH PCP - General 05/17/18 06/17/20 [address] [place] [address] documented as of this encounter
--- OUTSIDE RECORDS SUMMARY | 2022-07-27 09:23 | XMS_ITS | Encounter Summary ---
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 The patient return for blood pressure and pulse recheck next week, and monitoring, with consideration of adding at the med. TS BETTING MANAGER Telephone Encounter - Perla Bennett MA - 10/05/2018 2:23 PM CST Patient here for BP check. Patients bp was 142/80 pulse 67 TS BETTING MANAGER documented in this encounter Plan of Treatment Not on filedocumented as of this encounter Visit Diagnoses Diagnosis Essential hypertension - Primary Unspecified essential hypertension documented in this encounter Care Teams Tube Coverer Relationship Specialty Start Date End Date Yesenia Sood APRN, WORKERS COMPENSATION CLAIMS ANALYST PCP - General 05/17/18 06/17/20 [address] [facility] [place] [address] documented as of this encounter
--- OUTSIDE RECORDS SUMMARY | 2022-07-27 09:23 | XMS_ITS | Encounter Summary ---
:1960 Author Organization [facility] Address [address] [place] [address] Care Team Providers Name Role Phone Yesenia Sood VENEER CLIPPER HELPER, COMPUTER NUMERIC CONTROL SETTER Primary Care Provider Reason for Visit Reason Onset Date Comments Registry management 09/22/2018 Encounter Details Date Type Department Care Team Description 09/22/2018 Telephone [place] Yesenia Sood, Registry management [address] VENEER CLIPPER HELPER, COMPUTER NUMERIC CONTROL SETTER [place], [place] [address] [facility] [phone] [place], [place] [address] Social History Tobacco Use [...] at Date Recorded 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 AND DIE MANAGER Telephone Encounter - Lili Lucero RN - 09/22/2018 3:16 PM CST Please call patient to schedule a nurse only blood pressure check as it was slightly elevated at herlast visit. AND DIE MANAGER documented in this encounter Plan of Treatment Not on filedocumented as of this encounter Visit Diagnoses Not on filedocumented in this encounter Care Teams Inspector Weights And Measures Relationship Specialty Start Date End Date Yesenia Sood APRN, COMPUTER NUMERIC CONTROL SETTER PCP - General 05/17/18 06/17/20 [address] [place] [address] documented as of this encounter
--- OUTSIDE RECORDS SUMMARY | 2022-07-27 09:23 | XMS_ITS | Encounter Summary ---
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 BP 142/80 pulse 67. R REPLACER documented in this encounter Plan of Treatment Not on filedocumented as of this encounter Visit Diagnoses Not on filedocumented in this encounter Care Teams Security Sergeant Relationship Specialty Start Date End Date Yesenia Sood APRN, ENTEROSTOMAL NURSE PCP - General 05/17/18 06/17/20 [address], [place] [address] documented as of this encounter
--- OUTSIDE RECORDS SUMMARY | 2022-07-27 09:23 | XMS_ITS | Encounter Summary ---
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 Please advise if you'd like to make any further adjustment. CAL MECHANIC documented in this encounter Plan of Treatment Not on filedocumented as of this encounter Visit Diagnoses Not on filedocumented in this encounter Care Teams Meat Lugger Relationship Specialty Start Date End Date Yesenia Sood, MOLDING ENGINEER, WEB MARKETING SPECIALIST PCP - General 05/17/18 06/17/20 [address] [place] [address] documented as of this encounter
--- OUTSIDE RECORDS SUMMARY | 2022-07-27 09:25 | XMS_ITS | Encounter Summary ---
:1960 Author Organization [facility] Address [address] [place] [address] Care Team Providers Name Role Phone Elsewhere, Pcp Primary Care Provider Unavailable Encounter Details Date Type Department Care Team Description 07/17/2022 Clinical Communication Department of Anabella Chwo Internal Medicine in [facility] C.N.P.[place], [place] D.N.P. [address] [phone] Social History Tobacco Use Types Packs/Day Years Used Date Smoking Tobacco: Never Smokeless Tobacco: Never Alcohol Habits Answer Date Recorded How often do you have a drink containing alcohol? Patient re fused 06/26/2021 How many drinks containing alcohol do you have on a 1 or 2 04/03/2019 typical day when you are drinking? How often do you have six or more drinks on one Never 04/03/2019 occasion? Social Isolation Answer Date Recorded In a typical week, how many times do you talk on the Patient refused 06/26/2021 phone with family, friends, or neighbors? How often do you get together with friends or Patient refuse d 06/26/2021 relatives? How often do you attend confucianist or spiritism services? Patien t refused 06/26/2021 Do you belong to any clubs or organizations such as Patient refused 06/26/2021 confucianist groups, unions, fraternal or athletic groups, or school groups? How often do you attend meetings of the clubs or Patient ref used 06/26/2021 organizations you belong to? Are you now , , , , 06/26/2021 never or living with a partner? Physical Activity Answer Date Recorded On average, how many days per week do you engage in moderate to 4 days 06/26/2021 strenuous exercise (like walking fast, running, jogging, dancing, swimming, biking, or other activities that cause a light or heavy sweat)? On average, how many minutes do you engage in exercise at th is 20 min 06/26/2021 level? Stress Answer Date Recorded Do you feel stress - tense, restless, nervous, or Only a lit tle 06/26/2021 anxious, or unable to sleep at night because your mind is troubled all the time - these days? Intimate Partner Violence Answer Date Recorded Within the last year, have you been afraid of your partner o r No 06/26/2021 ex-partner? Within the last year, have you been humiliated or emotionall y No 06/26/2021 abused in other ways by your partner or ex-partner? Within the last year, have you been kicked, hit, slapped, or No 06/26/2021 otherwise physically hurt by your partner or ex-partner? Within the last year, have you been raped or forced to have any No 06/26/2021 kind of sexual activity by your partner or ex-partner? Housing Stability Answer Date Recorded In the last 12 months, was there a time when you were Patien t refused 06/26/2021 not able to pay the mortgage or rent on time? In the last 12 months, how many places have you lived? 1 06/26/2021 In the last 12 months, was there a time when you did Patient refused 06/26/[address]21 [address] to sleep or slept in a long term (including now)? Education Answer Date Recorded What is the highest level of school Associate degree: [employer], 04/02/2019 you have completed or the highest technical, or vocational p andreram degree you have received? Sex Assigned at Date Recorded Not on file documented as of this encounter Miscellaneous Notes Telephone Encounter - Linda Lewis, L.P.N. - 07/17/2022 2:09 PM CDT Returned patient call and she is established with another provider outside of [facility]. She prefers not be be called anymore. Telephone Encounter - Yesenia Pace - 07/17/2022 1:31 PM CDT Reason for Communication: Patient is calling [facility] Nurse back - not sure what this is regarding - please call her back at Current Can Nursing/Provider leave a detailed message?: yes you can Did the patient refuse triage through Nurse line? (for symptom based concerns): na Action Needed: Please call her back Name of Medication (if relevant): na Please send all scheduling replies to scheduling pool. documented in this encounter Plan of Treatment Not on filedocumented as of this encounter Visit Diagnoses Not on filedocumented in this encounter Additional Health Concerns Assessment Noted Time PHQ-9 Depression Total Score: 1 05/26/2021 11:46 AM CD T documented as of this encounter Care Teams Glued Wood Tester Relationship Specialty Start Date End Date Elsewhere, Pcp PCP - General Internal Medicine 05/11/22 documented as of this encounter
--- OUTSIDE RECORDS SUMMARY | 2022-07-27 09:25 | XMS_ITS | Encounter Summary ---
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 How often do you attend muslim or druze services? Patien t refused 06/26/2021 Do you belong to any clubs or organizations such as Patient refused 06/26/2021 muslim groups, unions, fraternal or athletic groups, or [...] place to sleep or slept in a retirement (including now)? Education Answer Date Recorded What is the highest level of school Associate degree: [employer], 04/02/2019 you have completed or the highest technical, or vocational p rogram degree you have received? Sex Assigned at Date Recorded Not on file documented as of this encounter Miscellaneous Notes Telephone Encounter - Emily Mcclure R.N. - 05/11/2022 2:09 PM CDT Primary Care Diabetes Management RN Contact Contact Type: Telephone, Initial contact SUBJECTIVE Contacting [place], a 61 y.o. female patient of Anabella Chow APRN, C.N.P., Nina.N.PSukhi to discuss diabetes management. Goals for today's contact include to: Schedule: diabetes follow-up visit with provider Current Diabetes Management Plan Medications: Glucose-lowering: did not assess Antihypertensives: did not assess Antiplatelet/Anticoag: did not assess Cholesterol-lowering: did not assess Tobacco Cessation: did not assess Social History and Lifestyle factors Eating pattern and weight history: Not assessed Sleep behaviors: Not assessed Physical activity: Not assessed Tobacco Use: Not assessed Alcohol and/or substance use: Not assessed Existing social supports: Not assessed Patient reports the following barriers to most effectively managing their diabetes: Barriers not assessed OBJECTIVE Recent Labs 05/26/21 1142 11/23/19 0925 HGBA1C 9.3 H 8.4 H LDLCALC 60 65 BP Readings from Last 2 Encounters: 06/30/21 132/84 05/26/21 130/74 Social History Tobacco Use Smoking Status Never Smokeless Tobacco Never Assessment & Plan Discussed the following recommendations with patient: Patient declines active engagement with healthcare team regarding diabetes management at this time. States she follows up at outside clinic and wishes to remove Anabella Chow DNP as PCP. Patient goal(s) updated in EHR. Will follow-up with patient Message routed to [facility] to remove Anabella Chow DNP as PCP. Patient mirian receives care elsewhere and does not wish to doctor here. documented in this encounter Plan of Treatment Not on filedocumented as of this encounter Visit Diagnoses Not on filedocumented in this encounter Additional Health Concerns Assessment Noted Time PHQ-9 Depression Total Score: 1 05/26/2021 11:46 AM CD T documented as of this encounter Care Teams Timber Management Assistant Relationship Specialty Start Date End Date Elsewhere, Pcp PCP - General Internal Medicine 05/11/22 documented as of this encounter
--- OUTSIDE RECORDS SUMMARY | 2022-07-27 09:25 | XMS_ITS | Encounter Summary ---
:1960 Author Organization [facility] Address [address] [place] [address] Care Team Providers Name Role Phone Anabella Chow APRN C.N.PSukhi, D.N.P. Primary Care Provider Reason for Visit Reason Comments Gynecologic Exam Outpatient (Routine) - Closed Specialty Diagnoses / Procedures Referred By Contact Refer red To Contact [facility] Internal Diagnoses Atypical Squamous Cell Uncertain Significance Personal History Anabella Chow, [facility] Medicine TYRONE, C.N.PSukhi, D.N.P. [address] [place] [address] Referral ID Status Reason Start Date Expiration Date Visits Requ ested Visits Authorized [id number] Closed 05/26/2021 05/26/2022 1 1 Encounter Details Date Type Department Care Team Description 06/30/2021 Office Visit Department of Anabella Chow, Pap Smear Examination (Primary Dx); Internal Medicine in [place], C.N.PSukhi, Atypic al Squamous Cell Uncertain Significance Personal History; [place], [place] D.N.P. Diabetes Mellitus Type 2 Without Complic ation (HCC); [address] [facility] Hypertensive Chronic Kidney Disease (CKD ) Stage 3b Glomerular Filtration Rate (GFR) 30 To 44 (HCC); [place], [place] Pain Hip Left [id number] Social History Tobacco Use Types Packs/Day [...] 06/26/2021 relatives? How often do you attend pentecostalism or temple services? Patien t refused 06/26/2021 Do you belong to any clubs or organizations such as Patient refused 06/26/2021 pentecostalism groups, unions, fraternal or athletic groups, or [...] place to sleep or slept in a skilled nursing (including now)? Education Answer Date Recorded What is the highest level of school Associate degree: milan brody, 04/02/2019 you have completed or the highest technical, or vocational p [place]imb[place] degree you have received? Sex Assigned at Date Recorded Not on file documented as of this encounter Last Filed Vital Signs Vital Sign Reading Time Taken Comments Blood Pressure 132/84 06/30/2021 9:35 AM CDT Pulse 62 06/30/2021 9:35 AM CDT Temperature 36.2 ??C (97.2 ??F) 06/30/2021 9:35 AM CDT Respiratory Rate - - Oxygen Saturation - - Inhaled Oxygen Concentration - - Weight 101 kg (221 lb 12.5 oz) 06/30/2021 9:35 AM CDT Height 162.7 cm (5' 4.06) 06/30/2021 9:35 AM CDT Body Mass Index 38 06/30/2021 9:35 AM CDT documented in this encounter Progress Notes Anabella Chow, TYR[place], C.N.P., D.N.P. - 06/30/2021 9:30 AM CDT SUBJECTIVE CHIEF COMPLAINT/REASON FOR VISIT Gynecologic Exam. HISTORY OF PRESENT ILLNESS Angeles is a very pleasant 60 y.o. female who presents for evaluation of Gynecologic Exam. [employer] history: Menstrual status: Post menopausal Last menstrual period:15 years ago Last pap: History of abnormal pap: History of ASCUS Concern for STI: None Pelvic pain: None Pelvic discharge: None Abdominal pain: None Urinary symptoms: None Diabetes: Numbers are coming down a bit. Has the CGM but has not yet started using. Not currently scheduled for follow up with DM. Numbers mostly in the 150's Hip pain has improved since doing PT. SOCIAL HISTORY Denies tobacco use. No concern for excessive alcohol use. Lives independently MEDICAL HISTORY Past Medical History: Diagnosis Date ??? Anxiety Disorder Unspecified 08/13/2016 ??? Anxiety Generalized Disorder SURGICAL HISTORY Past Surgical History: Procedure Laterality Date ??? BILATERAL TUBAL LIGATION N/A Bilateral tubal ligation ??? DESTRUCTIVE PROCEDURE N/A 2005 Ablation ??? OPERATIVE LAPAROSCOPY N/A 08/08/2016 Operative laparoscopy ??? SALPINGO - OOPHORECTOMY ??? SALPINGO-OOPHORECTOMY Bilateral 08/08/2016 Salpingo-oophorectomy FAMILY HISTORY Family History Relation Problem Comments Mother Diabetes Heart disease Hypertension Grandfather - maternal Cancer CURRENT MEDICATIONS Current Outpatient Medications Medication Sig ??? administration supplies (INPEN, FOR NOVOLOG,) injector pen ??? amLODIPine (NORVASC) 5 mg tablet Take 1 tablet (5 mg total) by mouth daily. ??? atorvastatin (LIPITOR) 10 mg tablet Take 1 tablet (10 mg total) by mouth daily. ??? blood-glucose meter,continuous (Dexcom G6 Room Service Food Server) misc 1 each continuously. ??? blood-glucose sensor (Dexcom G6 Sensor) device Change sensor every 10 days. ??? blood-glucose transmitter (Dexcom G6 Transmitter) device 1 each continuously. ??? chlorthalidone (HYGROTON) 25 mg tablet Take 1 tablet (25 mg total) by mouth daily. ??? glipiZIDE (GLUCOTROL) 10 mg tablet Take 1 tablet (10 mg total) by mouth 2 (two) times a day before breakfast and dinner. ??? insulin aspart U-100 (NovoLOG FlexPen) 100 unit/mL (3 mL) injection Inject 7 Units under the skin 3 (three) times a day with meals. ??? insulin glargine (Lantus Solostar U-100 Insulin) 100 unit/mL (3 mL) injection Inject 42 Units under the skin as directed. ??? loratadine (CLARITIN) 10 mg tablet Take 10 mg by mouth daily. ??? metoprolol succinate (TOPROL-XL) 25 mg 24 hr tablet Take 1 tablet (25 mg total) by mouth daily. ??? metoprolol succinate (TOPROL-XL) 50 mg 24 hr tablet Take 1 tablet (50 mg total) by mouth daily. ??? SITagliptin (JANUVIA) 50 mg tablet Take 1 tablet (50 mg total) by mouth daily. ??? traZODone (DESYREL) 100 mg tablet Take 1 tablet (100 mg total) by mouth at bedtime. ??? flash glucose scanning reader (FreeStyle Suze 2 [place]) misc 1 each continuously. (Patient not taking: Reported on 06/30/2021 ) ??? flash glucose sensor (FreeStyle Suze 2 Sensor) kit 1 each every 14 (fourteen) days. (Patient not taking: Reported on 06/30/2021 ) ALLERGIES/CONTRAINDICATIONS Allergies Allergen Reactions ??? Adhesive Tape-Silicones Other (see comments) ??? Amoxicillin Other (see comments) ??? Amoxicillin-Pot Clavulanate Hives per external records ??? Aspirin Other (see comments) Risk for Interaction ??? Clopidogrel Other (see comments) Risk for Interaction ??? Lisinopril Cough ??? Nsaids (Non-Steroidal Anti-Inflammatory Drug) Other (see comments) ??? Promethazine Other (see comments) REVIEW OF SYSTEMS REVIEW OF SYSTEMS Pertinent positives as per HPI. Otherwise, comprehensive review of systems performed and negative. OBJECTIVE VITAL SIGNS BP 132/84 (BP Location: Left arm, Patient Position: Sitting, Cuff Size: Large) Pulse 62 Temp 36.2 ??C Ht 162.7 cm Wt 101 kg BMI 38.00 kg/m?? PHYSICAL EXAMINATION Constitutional General: She is not in acute distress. Appearance: She is well-developed. She is not diaphoretic. HENT Head: Normocephalic and atraumatic. Eyes Conjunctiva/sclera: Conjunctivae normal. Pupils: Pupils are equal, round, and reactive to light. Pulmonary Effort: Pulmonary effort is normal. No respiratory distress. Genitourinary Exam position: Supine. Vagina: Normal. Cervix: Normal. Musculoskeletal General: Normal range of motion. Cervical back: Normal range of motion. Skin General: Skin is warm and dry. Neurological Mental Status: She is alert and oriented to person, place, and time. Psychiatric Behavior: Behavior normal. ASSESSMENT / PLAN #1 Pap Smear Examination - ThinPrep w/HPV Co-Test Screen #2 Atypical Squamous Cell Uncertain Significance Personal History Comments: Pap smear updated today. Follow-up based on results. Orders: - [facility] (clinic) #3 Diabetes Mellitus Type 2 Without Complication (HCC) Assessment & Plan: Per her report blood sugars have been improving. She has received her continues glucose monitor but has not yet started using it. Will plan on following up for 3 month A1c repeat and follow up with Diabetes Education as needed. #4 Hypertensive Chronic Kidney Disease (CKD) Stage 3b Glomerular Filtration Rate (GFR) 30 To 44 (HCC) Assessment & Plan: Stable. Tolerating treatment well without significant side effects. Denies any symptoms associated with hypertension. Denies any recent chest pain, palpitations, lightheadedness, changes in exercise tolerance or energy levels from baseline. Denies hypotension. Continue current medications, diet, and ex ercise to control blood pressure. #5 Pain Hip Left Assessment & Plan: Reports pain has resolved with physical therapy. Continue to monitor. There are no discontinued medications. Recommended Angeles follow up in 3 months for diabetes recheck. Follow up sooner for any new or worsening symptoms. Angeles verbalized understanding of the plan of care and was in agreement. All questions were answered today. Total time spent on visit: 13 minutes documented in this encounter Miscellaneous Notes Result Encounter Note - Anabella Chow APRN, Willard.N.P., D.N.P. - 07/04/2021 2:21 PM CDT Portal message sent with results. Your pap smear has come back normal. There were no signs of abnormal cells or high risk HPV. Good news. Plan on repeating pap smear in 1 year and if this is also normal we can go back to regular screening. Please let me know if you have any questions or concerns Thank you Anabella Chow APRN, C.N.P., D.N.P. Assessment & Plan Note - Anabella Chow APRN, C.N.P., D.N.P. - 06/30/2021 4:48 PM CDTAssociated Problem(s): Pain Hip Left Reports pain has resolved with physical therapy. Continue to monitor. Assessment & Plan Note - Anabella Chow APRN C.N.P., D.N.P. - 06/30/2021 4:47 PM CDTAssociated Problem(s): Hypertensive Chronic Kidney Disease (CKD) Stage 3b Glomerular Filtration Rate(GFR) 30 To 44 (HCC) Stable. Tolerating treatment well without significant side effects. Denies any symptoms associated with hypertension. Denies any recent chest pain, palpitations, lightheadedness, changes in exercise tolerance or energy levels from baseline. Denies hypotension. Continue current medications, diet, and ex ercise to control blood pressure. Assessment & Plan Note - Anabella Chow APRN, C.N.P., D.N.P. - 06/30/2021 4:47 PM CDTAssociated Problem(s): Diabetes Mellitus Type 2 Without Complication (HCC) Per her report blood sugars have been improving. She has received her continues glucose monitor but has not yet started using it. Will plan on following up for 3 month A1c repeat and follow up with Diabetes Education as needed. documented in this encounter Plan of Treatment Not on filedocumented as of this encounter Procedures Procedure Name Priority Date/Time Associated Diagnosis Comme nts THINPREP W/HPV Routine 06/30/2021 11:21 AM Pap Smear Result s for this CO-TEST SCREEN CDT Examination procedure are in the results section. HPV WITH Routine 06/30/2021 11:21 AM Results for this GENOTYPING, PCR, CDT procedure a re in THINPREP the results section. documented in this encounter Results HPV with Genotyping, PCR, ThinPrep (06/30/2021 11:21 AM CDT) Patholo gist Method Time Signature Specimen Thin Prep 07/02/2021 DTL Source Vial, 4:22 PM CDT Cervix/Endoc ervix HPV High Risk Negative Negative 07/02/2021 DTL type 16, PCR 4:22 PM CDT HPV High Risk Negative Negative 07/02/2021 DTL type 18, PCR 4:22 PM CDT HPV other Negative Negative 07/02/2021 DTL High Risk 4:22 PM CDT types, PCR Comment: The following Other High Risk HPV types were not detected: 31, 33, 35, 39, 45, 51, 52, 56, 58, 59, 66, and 68 This test was ordered in the context of a [facility] REVIVAL CLERK Cytology case; this result should be int erpreted within the context of the REVIVAL CLERK cytology report. Specimen Anatomical Collection Method Collection Time Receive d Time (Source) Location / / Volume Laterality Varies 06/30/2021 11:21 07/01/2021 9:40 AM CDT AM CDT Willard Prasad APRN.N.P., D.N.P. LAB MICROBIOLOGY - GENERAL ORDERABLES Performing Organization Address City/State/ZIP Code Phon e Number [facility] - [address] [place], [place] [address] [facility] [place] [address] [facility] [address] ThinPrep w/HPV Co-Test Screen (06/30/2021 11:21 AM CDT) Component Value Ref Test Analysis Performed Pathologis t Range Method Time At Signature 07/04/2021 ECLR 1:35 PM CDT Disclaimer High risk HPV testing, Real-Time Polymerase Chain Reac tion 07/04/2021 ECLR (PCR) was performed on the liquid-based cytology specimen 1:35 PM at CDT [place], [place]. Report BROOKE Borden(ASCP) 07/04/2021 E CLR electronically 1:35 PM signed by CDT I verify that I have examined all relevant slides/materials for the specimen(s) and rendered or confirmed the diagnosis. Gross Description Received specimen 07/04/2021 ECL R in a ThinPrep 1:35 PM vial. CDT Pap Test Source Cervical/Endocervi 07/04/2021 ECLR sanchez 1:35 PM CDT Clinical History 2020 Abnormal pap 07/04/2021 ECLR 1:35 PM CDT Menstrual PM 07/04/2021 ECLR Status(LMP, PM, 1:35 PM ) CDT Interpretation Cervical/Endocervical ??(ThinPrep): 07/04/2021 ECLR 1:35 PM Satisfactory for Evaluation CDT Endocervical/transformation zone components absent Negative for Intraepithelial Lesion or Malignancy ??High Risk HPV testing results are NEGATIVE. See specific genotype results below. HPV with Genotyping, PCR, ThinPrep: ??HPV High Risk Type 16, PCR: ??NEGATIVE ??HPV High Risk Type 18, PCR: ??NEGATIVE ??HPV other High Risk types, PCR: ??NEGATIVE Other High Risk HPV types include: 31, 33, 35, 39, 45, 51, 52, 56, 58, 59, 66, and 68. Specimen Anatomical Collection Method Collection Time Receive d Time (Source) Location / / Volume Laterality Varies 06/30/2021 11:21 07/01/2021 9:40 (Cervix/Endocerv AM CDT AM CDT ix) Narrative This result has an attachment that is no t available. Anabella Chow APRN C.N.P., D.N.P. LAB PAP PATHDX OR DERABLES Performing Organization Address City/State/ZIP Code Phon e Number [facility]- [address] [place] [phone] [facility] [place] [place] [address] [address] documented in this encounter Visit Diagnoses Diagnosis Pap Smear Examination - Primary Atypical Squamous Cell Uncertain Signifi cance Personal History Diabetes Mellitus Type 2 Without Complic ation (HCC) Hypertensive Chronic Kidney Disease (CKD ) Stage 3b Glomerular Filtration Rate (GFR) 30 To 44 (HCC) Pain Hip Left documented in this encounter Additional Health Concerns Assessment Noted Time PHQ-9 Depression Total Score: 1 05/26/2021 11:46 AM CD T documented as of this encounter Care Teams Figure Clerk Relationship Specialty Start Date End Date Anabella Chow APRN, C.N.P., PCP - General Internal Medicine 04/1105/10/22 Lib[address]hi [address] [place] [address] documented as of this encounter
--- OUTSIDE RECORDS SUMMARY | 2022-07-27 09:25 | XMS_ITS | Encounter Summary ---
:1960 Author Organization [facility] Address [address] [place] [address] Care Team Providers Name Role Phone Elsewhere, Pcp Primary Care Provider Unavailable Encounter Details Date Type Department Care Team Description 03/31/2022 Orders Only [facility] Yesenia Sood, [place] C.N.P. [address] [place] [address] [phone] Social History Tobacco Use Types Packs/Day Years [...] 06/26/2021 relatives? How often do you attend temple or sabianist services? Purvien t refused 06/26/2021 Do you belong to any clubs or organizations such as Patient refused 06/26/2021 temple groups, unions, fraternal or athletic groups, or [...] place to sleep or slept in a long-term (including now)? Education Answer Date Recorded What is the highest level of school Associate degree: milan brody, 04/02/2019 you have completed or the highest technical, or vocational p rogram degree you have received? Sex Assigned at Date Recorded Not on file documented as of this encounter Plan of Treatment Not on filedocumented as of this encounter Visit Diagnoses Not on filedocumented in this encounter Additional Health Concerns Assessment Noted Time PHQ-9 Depression Total Score: 1 05/26/2021 11:46 AM CD T documented as of this encounter Care Teams Life Sciences Instructor Relationship Specialty Start Date End Date Elsewhere, Pcp PCP - General Internal Medicine 05/11/22 documented as of this encounter
--- OUTSIDE RECORDS SUMMARY | 2022-07-27 09:25 | XMS_ITS | Encounter Summary ---
:1960 Author Organization [facility] Address [address] [place] [address] Care Team Providers Name Role Phone Elsewhere, Pcp Primary Care Provider Unavailable Encounter Details Date Type Department Care Team Description 06/12/2021 Orders Only Department of Internal Anabella Chow APRN, Medicine in [place], C.N.P., D. N.P. [address] [address] [place] [address] [phone] Social History Tobacco Use Types Packs/Day Years [...] 06/26/2021 relatives? How often do you attend latter-day or moravian services? Patien t refused 06/26/2021 Do you belong to any clubs or organizations such as Patient refused 06/26/2021 latter-day groups, unions, fraternal or athletic groups, or [...] place to sleep or slept in a mcc (including now)? Education Answer Date Recorded What [...] documented as of this encounter Care Teams Pole Inspector Relationship Specialty Start Date End Date Elsewhere, Pcp PCP - General Internal Medicine 05/11/22 documented as of this encounter
--- OUTSIDE RECORDS SUMMARY | 2022-07-27 09:25 | XMS_ITS | Encounter Summary ---
:1960 Author Organization [facility] Address [address] [place] [address] Care Team Providers Name Role Phone Elsewhere, Pcp Primary Care Provider Unavailable Reason for Visit Reason Comments Med Refill Encounter Details Date Type Department Care Team Description 07/07/2022 Refill Department of Internal Anabella Chow APRN, Med Refill Medicine in [place], C.N.P., D. N.P. [address] [address] [place] [address] [phone] Social History Tobacco Use Types Packs/Day Years [...] 06/26/2021 relatives? How often do you attend zoroastrianism or pentecostal services? Patien t refused 06/26/2021 Do you belong to any clubs or organizations such as Patient refused 06/26/2021 zoroastrianism groups, unions, fraternal or athletic groups, or [...] place to sleep or slept in a alf (including now)? Education Answer Date Recorded What is the highest level of school Associate degree: milan brody, 04/02/2019 you have completed or the highest technical, or vocational p rogram degree you have received? Sex Assigned at Date Recorded Not on file documented as of this encounter Miscellaneous Notes Telephone Encounter - Anabella Chow APRN, C.N.P., D.N.P. - 07/07/2022 3:05 PM CDT Patient has not been seen in over a year here. Needs to be seen before I will refill any prescriptions. If she is receiving care elsewhere refills need to be routed there. Telephone Encounter - Lili Pisano CRAT - 07/07/2022 2:27 PM CDT Lab Results Component Value Date HGBA1C 9.3 (H) 05/26/2021 documented in this encounter Plan of Treatment Not on filedocumented as of this encounter Visit Diagnoses Diagnosis Diabetes Mellitus Type 2 Without Complic ation (HCC) documented in this encounter Additional Health Concerns Assessment Noted Time PHQ-9 Depression Total Score: 1 05/26/2021 11:46 AM CD T documented as of this encounter Care Teams Engineering Drawings Checker Relationship Specialty Start Date End Date Elsewhere, Pcp PCP - General Internal Medicine 05/11/22 documented as of this encounter
--- OUTSIDE RECORDS SUMMARY | 2022-07-27 09:25 | XMS_ITS | Encounter Summary ---
:1960 Author Organization [facility] Address [address] [place] [address] Care Team Providers Name Role Phone Elsewhere, Pcp Primary Care Provider Unavailable Encounter Details Date Type Department Care Team Description 06/17/2021 Orders Only [facility] Sherri Aguero APRN, [place] C.N.P., D.N.P. [address] [address] [place] [phone] (Wo rk) Social History Tobacco Use Types [...] 06/26/2021 relatives? How often do you attend christianity or jew services? Patien t refused 06/26/2021 Do you belong to any clubs or organizations such as Patient refused 06/26/2021 christianity groups, unions, fraternal or athletic groups, or [...] documented as of this encounter Care Teams Breaker Layer Relationship Specialty Start Date End Date Elsewhere, Pcp PCP - General Internal Medicine 05/11/22 documented as of this encounter
--- OUTSIDE RECORDS SUMMARY | 2022-07-27 09:25 | XMS_ITS | Encounter Summary ---
:1960 Author Organization [facility] Address [address] [place] [address] Care Team Providers Name Role Phone Anabella Chow APRN C.N.PSukhi, D.N.P. Primary Care Provider Reason for Visit Reason Comments Medication Problem Encounter Details Date Type Department Care Team Description 06/12/2021 Clinical Communication [facility] Antoine Medic ation Problem Pharmacy Ney Gregorio Pharm.D., [address] [place] [address].Ph. VD [address] [place] [address] [facility] [phone] [place] [id number] Social History Tobacco Use Types Packs/Day Years [...] 06/26/2021 relatives? How often do you attend hoahaoism or religion services? Patien t refused 06/26/2021 Do you belong to any clubs or organizations such as Patient refused 06/26/2021 hoahaoism groups, unions, fraternal or athletic groups, or [...] place to sleep or slept in a [place] [facility] [place] (including now)? Education Answer Date Recorded What is the highest level of school Associate degree: milan brody, 04/02/2019 you have completed or the highest technical, or vocational p rogram degree you have received? Sex Assigned at Date Recorded Not on file documented as of this encounter Miscellaneous Notes Telephone Encounter - Anabella Chow APRN, C.N.PSukhi, D.N.P. - 06/17/2021 2:33 PM CDT Please let patient know I sent in the prescription for the freestyle suze Please let me know if there are any questions or concerns. Thank you Telephone Encounter - Leora Alatorre RDN, CDE - 06/17/2021 2:06 PM CDT Pended Rx for Suze 2 CGM. It has alarms which can be set for hyper and hypoglycemia which is beneficial when patient is on insulin. Thanks! Leora Telephone Encounter - Elizabeth Schultz, Pharm.D., R.Ph. - 06/12/2021 5:26 PM CDT It looks like the Freestyle Suze products are cheaper for Angeles than the Dexcom. She would like to switch. Can you consider changing to either the Freestyle Suze 14 day or Suze 2 product? Thank you, [facility] - [place] documented in this encounter Plan of Treatment Not on filedocumented as of this encounter Visit Diagnoses Diagnosis Diabetes Mellitus Type 2 Without Complic ation (HCC) - Primary documented in this encounter Additional Health Concerns Assessment Noted Time PHQ-9 Depression Total Score: 1 05/26/2021 11:46 AM CD T documented as of this encounter Care Teams Component Design Engineer Relationship Specialty Start Date End Date Anabella Chow APRN, C.N.P., PCP - General Internal Medicine 04/1105/10/22 D.N.P. [address] [place] [address] documented as of this encounter
--- OUTSIDE RECORDS SUMMARY | 2022-07-27 09:25 | XMS_ITS | Encounter Summary ---
:1960 Author Organization [facility] Address [address] [place] [address] Care Team Providers Name Role Phone Anabella Chow APRN C.N.P., D.N.P. Primary Care Provider Encounter Details Date Type Department Care Team Description 07/23/2021 Clinical Communication Department of Leora Alatorre, Nutrition in [place], RDN, CDE [address] [phone] Social History Tobacco Use Types Packs/Day Years [...] How often do you attend hoahaoism or orthodoxy services? Patien t refused 06/26/2021 Do you [...] place to sleep or slept in a fci (including now)? Education Answer Date Recorded What is the highest level of school Associate degree: milan brody, 04/02/2019 you have completed or the highest technical, or vocational p brittani degree you have received? Sex Assigned at Date Recorded Not on file documented as of this encounter Miscellaneous Notes Telephone Encounter - Leora Alatorre, ASTRIDN, CDE - 07/23/2021 2:14 PM CDT Called patient to see if she had any questions regarding her CGM as I had read in her 06/30 provider note that she had received the Dexcom but not started using it. Patient states she did wear it for 10days and then went on vacation and didn't want to wear it at that time. She feels that the CGM is helpful and is starting back on it today. She did not want to sign up to share data with our clinic as she stated that she was going to be going elsewhere for her care - not a [facility]. She did not elaborate, but thanked me the help I gave her. documented in this encounter Plan of Treatment Not on filedocumented as of this encounter Visit Diagnoses Not on filedocumented in this encounter Additional Health Concerns Assessment Noted Time PHQ-9 Depression Total Score: 1 05/26/2021 11:46 AM CD T documented as of this encounter Care Teams Phosphatic Fertilizer Supervisor Relationship Specialty Start Date End Date Anabella Chow APRN, C.N.P., PCP - General Internal Medicine 04/1105/10/22 D.N.P. [address] [place] [address] documented as of this encounter
--- OUTSIDE RECORDS SUMMARY | 2022-07-27 09:25 | XMS_ITS | Clinical Summary ---
:1960 Author Organization [facility] Address [address] [place] [address] Care Team Providers Name Role Phone Elsewhere, Pcp Primary Care Provider Unavailable Source Comments Patient records contain information from all sites at [facility]. For routine questions regarding patient records, call [phone] during business hours, M-F 8:00 AM - 5:00 PM Central Time. Record requests for emergency care only can be directed to [phone] at any time.[facility] Allergies Active Allergy Reactions Severity Noted Date Comments Adhesive Tape-Silicones Other (see comments) 9 Amoxicillin Other (see comments) 07/11/2016 Amoxicillin-Pot Hives 12/10/2015 per external records Clavulanate Aspirin Other (see comments) 08/25/2019 Risk fo r Interaction Clopidogrel Other (see comments) 08/25/2019 Risk fo r Interaction Lisinopril Cough 12/10/2015 Nsaids (Non-Steroidal Other (see comments) 07/11/2016 Anti-Inflammatory Drug) Promethazine Other (see comments) 11/21/2018 Medications Medication Sig Dispensed Refills Start Date End Date Status administration 0 02/12/2015 Acti ve supplies (INPEN, FOR NOVOLOG,) injector pen loratadine (CLARITIN) Take 10 mg by 0 Active 10 mg tablet mouth daily. traZODone (DESYREL) Take 1 tablet 90 tablet 3 05/26/2021 Active 100 mg (100 mg total) by tabletIndications: mouth at bedtime. Insomnia insulin aspart U-100 Inject 7 Units 15 mL 3 05/26/2021 Active (NovoLOG FlexPen) 100 under the skin 3 unit/mL (3 mL) (three) times a injectionIndications: day with meals. Diabetes Mellitus Type 2 Without Complication (HCC) glipiZIDE (GLUCOTROL) Take 1 tablet (10 180 tablet 3 Active 10 mg tablet mg total) by mouth 2 (two) times a day before breakfast and dinner. SITagliptin (JANUVIA) Take 1 tablet (50 90 tablet 05/26/2021 Active 50 mg tablet mg total) by mouth daily. amLODIPine (NORVASC) Take 1 tablet (5 90 tablet 3 05/26/2021 Active 5 mg tablet mg total) by mouth daily. atorvastatin Take 1 tablet (10 90 tablet 05/26/2021 Active (LIPITOR) 10 mg mg total) by tablet mouth daily. chlorthalidone Take 1 tablet (25 90 tablet 05/26/2021 Active (HYGROTON) 25 mg mg total) by tablet mouth daily. metoprolol succinate Take 1 tablet (25 90 tablet 05/26/2021 Active (TOPROL-XL) 25 mg 24 mg total) by hr tablet mouth daily. metoprolol succinate Take 1 tablet (50 90 tablet 05/26/2021 Active (TOPROL-XL) 50 mg 24 mg total) by hr tablet mouth daily. insulin glargine Inject 42 Units 45 mL 3 06/20/2021 Active (Lantus Solostar under the skin as U-100 Insulin) 100 directed. unit/mL (3 mL) injection blood sugar USE DIRECTED 100 each 3 10/02/2020 A ctive diagnostic strips TO TEST TWO TIMES A DAY insulin glargine 100 Inject 47 Units 45 mL 3 04/14/2022 Active unit/mL (3 mL) under the skin injection every evening. traZODone (DESYREL) TAKE 2 TABLETS 180 tablet 3 04/14/202202/2023 Active 50 mg tablet (100 MG) BY MOUTH DAILY metoprolol succinate TAKE 1 TABLET BY 90 tablet 3 04/14/2022 0 04/14/2023 Active (TOPROL-XL) 25 mg 24 MOUTH DAILY ALONG hr tablet WITH 50 MG TABLET FOR A TOTAL DOSE OF 75 MG DAILY SITagliptin (JANUVIA) TAKE 1 TABLET BY 90 tablet 3 04/14/2022 04/14/2023 Active 50 mg tablet MOUTH DAILY metoprolol succinate TAKE 1 TABLET BY 90 tablet 04/14/2022 0 04/14/2023 Active (TOPROL-XL) 50 mg 24 MOUTH DAILY hr tablet glipiZIDE (GLUCOTROL) TAKE 1 TABLET BY 180 tablet 3 04/14/2022 04/14/2023 Active 10 mg tablet MOUTH TWO TIMES A DAY atorvastatin TAKE 1 TABLET BY 90 tablet 3 04/14/2022 3 Active (LIPITOR) 10 mg MOUTH EVERY tablet EVENING amLODIPine (NORVASC) TAKE 1 TABLET BY 90 tablet 3 04/14/2022 0 04/14/2023 Active 5 mg tablet MOUTH DAILY chlorthalidone TAKE 1 TABLET BY 90 tablet 3 04/14/2022 023 Active (HYGROTON) 25 mg MOUTH DAILY tablet insulin aspart U-100 Inject 12 Units 30 mL 3 03/31/2022 Active (NovoLOG FlexPen) 100 under the skin 3 unit/mL (3 mL) (three) times a injection day. blood-glucose sensor Change every 10 3 each 2 07/14/2022 Active (Dexcom G6 Sensor) days. device blood-glucose Replace 1 each 3 07/27/2022 Activ e transmitter (Dexcom transmitter every G6 Transmitter) 90 days. device Active Problems Problem Noted Date Thrombocytopenia 05/26/2021 Last Assessment & Plan: Formatting of th is note might be different from the original. Persistent mild thrombocytopenia for whpeggy ch she saw Hematology in the past. They did not feel that a bone marrow biopsy was necessary at that time and thought it may be medication induced due to glipizid e. Her platelets are bit lower than they were a year ago but overall still mild. Denies any symptoms associated with this. We will continue to monitor and if we notice a trend downward could consider di scontinuing the glipizide or referring b ack to Hematology for further evaluation. Morbid Severe Obesity Due To Excess Calories Last Assessment & Plan: Formatting of th is note might be different from the original. BMI today is Body mass index is 37.85 kg /m??.. We discussed the benefits of working toward and maintaining a healthy weight. Chronic comorbidities associated with current weight include diabetes and hyp ertension. Reviewed management of these today. Encouraged lifestyle management and reviewed ways to improve nutrition. Encouraged at least 150 minutes of moderate physical activity per week. Discussed p ersonal barriers to weight loss. Offered a referral to our marine cargo specialist to review changes that could be made to improve diet. she will let us know if there are any ways we can further support her in meeting her weight loss goals. Pain Hip Left 05/26/2021 Last Assessment & Plan: Formatting of th is note might be different from the original. Reports pain has resolved with physical therapy. Continue to monitor. Hyperlipidemia 05/23/2021 Last Assessment & Plan: Formatting of th is note might be different from the original. Stable. Currently on Lipitor for hyperli pidemia management and tolerating well without any side effects. Lipid panel up to date. Continue to monitor Obesity Body Mass Index 30-39.9 Adult 05/23/2021 Sciatica 08/11/2019 Insomnia 01/05/2017 Last Assessment & Plan: Formatting of th is note might be different from the original. Stable on 100 mg of trazodone nightly. Major Depressive Disorder Single Episode Unspecified 1 10/13/2015 Last Assessment & Plan: Formatting of th is note might be different from the original. Reports depression has resolved and mood is currently stable. Not currently on anything specifically for her depression. Does not feel she needs any medication for this at this time. Mass Adnexal 07/28/2016 Hypertensive Chronic Kidney Disease (CKD) Stage 3b Roselyn merular Filtration 12/10/2015 Rate (GFR) 30 To 44 Last Assessment & Plan: Formatting of th is note might be different from the original. Stable. Tolerating treatment well withou t significant side effects. Denies any symptoms associated with hypertension. Denies any recent chest pain, palpitations, lightheadedness, changes in exercise jm erance or energy levels from baseline. D enies hypotension. Continue current medications, diet, and exercise to control blood pressure. Diabetes Mellitus Type 2 Without Complication 11/14/19 16 Last Assessment & Plan: Formatting of th is note might be different from the original. Per her report blood sugars have been im proving. She has received her continues glucose monitor but has not yet started using it. Will plan on following up for 3 month A1c repeat and follow up with Diabetes Education as needed. 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 Renal function is stable if not a bit im proved from when last checked. Recommended we continue to monitor closely and avoid any medications that may be nephrotoxic. Not currently following with Nephrolo gy but we could consider referral in the future if kidney function is getting any worse. Recommended she work on remaining well hydrated. Herniated Disc Lumbar Resolved Problems Problem Noted Date Resolved Date Depressive Disorder 05/23/2021 05/23/2021 Anxiety Disorder Unspecified 08/13/2016 05/26/2021 Encounters Date Type Specialty Care Team Description 07/17/2022 Clinical Communication [facility] Anabella Chow Internal Medicine TYRONE Harrison C.N.P., D.N.P. 07/07/2022 Refill [facility] Anabella Chow Refill Internal Medicine TYORNE Harrison C.N.P., D.N.P. 07/07/2022 Refill [facility] Anabella Chow Refill Internal Medicine TYRONE Harrison C.N.P., D.N.P. 05/11/2022 Clinical Communication [facility] ISAEL Mcclure Review Internal Medicine Emily Escobar R.N. from Last 3 Months Immunizations Name Administration Dates Next Due influenza vaccine quad (FLUZONE/FLUARIX) (6 months 0, 08/09/2016 and older)(PF) Family History Medical History Relation Name Comments Cancer Grandfather maternal Diabetes Mother Heart disease Mother Hypertension Mother Relation Name Status Comments Grandfather maternal Mother Social History Tobacco Use Types Packs/Day Years [...] 06/26/2021 relatives? How often do you attend bahai or sabianism services? Patien t refused 06/26/2021 Do you belong to any clubs or organizations such as Patient refused 06/26/2021 bahai groups, unions, fraternal or athletic groups, or [...] Assigned at Date Recorded Not on file Last Filed Vital Signs Vital Sign Reading Time Taken Comments Blood Pressure 132/84 06/30/2021 9:35 AM CDT Pulse 62 06/30/2021 9:35 AM CDT Temperature 36.2 ??C (97.2 ??F) 06/30/2021 9:35 AM CDT Respiratory Rate 17 03/06/2020 4:00 AM CDT Oxygen Saturation 95% 03/06/2020 4:00 AM CDT Inhaled Oxygen Concentration - - Weight 101 kg (221 lb 12.5 oz) 06/30/2021 9:35 AM CDT Height 162.7 cm (5' 4.06) 06/30/2021 9:35 AM CDT Body Mass Index 38 06/30/2021 9:35 AM CDT Plan of Treatment Health Maintenance Due Date Last Done Comments CT Colonography 1960 Cologuard 1960 FIT 1960 HIV Screening 1960 Hepatitis C Screening 1960 Dilated Eye Exam 07/11/2021 07/11/2020 (Performed elsewhere) Hemoglobin A1C 08/26/2021 05/26/2021, 11/23/2019, 02/09/2019, Additional history exists Depression Monitoring (PHQ-9) 09/25/2021 05/26/2021 COVID-19 Vaccine (4 - Booster for 09/30/2021 08/05/2021, , Pfizer series) 12/19/2020 Pneumococcal vaccine (0-64 years) 10/06/2021 02/08/2018, (3 - PPSV23 if available, else PCV20) Hepatitis B Vaccines (1 of 3 - 2021 Risk 3-dose series) Creatinine Level 05/26/2022 05/26/2021, 03/06/2020, 11/23/2019, Additional history exists Potassium Level 05/26/2022 05/26/2021, 03/06/2020, 11/23/2019, Additional history exists Sodium Level 05/26/2022 05/26/2021, 03/06/2020, 11/23/2019, Additional history exists Urine Albumin 05/26/2022 05/26/2021, 12/11/2015, 12/11/2015 Mammogram 05/27/2022 05/27/2021, 02/09/2019, 02/08/2018, Additional history exists Cervical Cancer Screening 06/30/2022 06/30/2021, 06/30/2021 , 06/20/2020, Additional history exists Diabetic Office Visit with Foot 06/30/2022 06/30/2021 Exam Office Visit for Blood Pressure 06/30/2022 06/30/2021 Check / Re-check Influenza Vaccine (#1) 2022 08/30/2020, 08/06/2020, 08/02/2019, Additional history exists DTaP,Tdap,and Td Vaccines (2 - Td 08/12/2025 08/12/2015, or Tdap) Lipid (Cholesterol) Screening 05/26/2026 05/26/2021, 2019, 11/14/2018, Additional history exists Colonoscopy 07/22/2026 07/22/2016 Colorectal Cancer Screening 07/22/2026 Zoster Vaccines Completed 11/12/2020, 06/20/2020 Insurance Payer Benefit Plan / Subscriber ID Effective Phone Address T ype Group Dates [facility] [id number] 2017-Pres [phone] [address] PPO OPEN ACCESS ent [address] [place] [address] Care Teams Vehicle Return Associate Relationship Specialty Start Date End Date Elsewhere, Pcp PCP - General Internal Medicine 05/11/22
--- OUTSIDE RECORDS SUMMARY | 2022-07-27 09:25 | XMS_ITS | Encounter Summary ---
:1960 Author Organization [facility] Address [address] [place] [address] Care Team Providers Name Role Phone Anabella Chow APRN C.N.PSukhi, D.N.P. Primary Care Provider Reason for Visit Reason Comments Medication Question Encounter Details Date Type Department Care Team Description 06/20/2021 Clinical Communication [facility] Antoine, Medic ation Question Pharmacy Ney Gregorio Pharm.D., [address] [place] [address].Ph. VD [address] [place] [phone] [facility] [phone] [place] [id number] Social History Tobacco Use Types Packs/Day Years [...] 06/26/2021 relatives? How often do you attend yarsani or yarsanism services? Patien t refused 06/26/2021 Do you belong to any clubs or organizations such as Patient refused 06/26/2021 yarsani groups, unions, fraternal or athletic groups, or [...] - Anabella Chow APRN, C.N.PSukhi, D.N.P. - 06/20/2021 12:11 PM CDT New RX sent for requested amount Telephone Encounter - Elizabeth Schultz Pharm.D., R.Ph. - 06/20/2021 11:34 AM CDT Angeles Kyle would like to fill 3 boxes of Lantus per fill, but the prescription is only written for one box per fill. Can you please issue a new prescription for 45 ml? Thank you, [facility] - Pelon Breswter documented in this encounter Plan of Treatment Not on filedocumented as of this encounter Visit Diagnoses Not on filedocumented in this encounter Additional Health Concerns Assessment Noted Time PHQ-9 Depression Total Score: 1 05/26/2021 11:46 AM CD T documented as of this encounter Care Teams Convention Manager Relationship Specialty Start Date End Date Anabella Chow APRN C.N.P., PCP - General Internal Medicine 04/1105/10/22 D.N.P. [address] [place] [address] documented as of this encounter
--- OUTSIDE RECORDS SUMMARY | 2022-07-27 09:25 | XMS_ITS | Encounter Summary ---
:1960 Author Organization [facility] Address [address] [place] [address] Care Team Providers Name Role Phone Elsewhere, Pcp Primary Care Provider Unavailable Encounter Details Date Type Department Care Team Description 04/14/2022 Orders Only [facility] Yesenia Sood, [place] C.N.P. [address] [place] [address] [phone] Social History Tobacco Use Types Packs/Day Years [...] 06/26/2021 relatives? How often do you attend religion or episcopalian services? Purvien t refused 06/26/2021 Do you belong to any clubs or organizations such as Patient refused 06/26/2021 religion groups, unions, fraternal or athletic groups, or [...] documented as of this encounter Care Teams Crochet Machine Operator Relationship Specialty Start Date End Date Elsewhere, Pcp PCP - General Internal Medicine 05/11/22 documented as of this encounter
--- OUTSIDE RECORDS SUMMARY | 2022-07-27 09:25 | XMS_ITS | Encounter Summary ---
:1960 Author Organization [facility] Address [address] [place] [address] Care Team Providers Name Role Phone Anabella Chow APRN C.N.P., D.N.P. Primary Care Provider Reason for Visit Reason Comments Diabetes Quality Care Review Encounter Details Date Type Department Care Team Description 06/17/2021 Clinical Communication Department of Anabella Chow (Quality Internal Medicine TYRONE Harrison, Care Revie w) in [place], C.N.P., D.N.P. [address] [phone] Social History Tobacco Use Types [...] 06/26/2021 relatives? How often do you attend pentecostal or adventism services? Patien t refused 06/26/2021 Do you belong to any clubs or organizations such as Patient refused 06/26/2021 pentecostal groups, unions, fraternal or athletic groups, or [...] Telephone Encounter - Emily Mcclure R.N. - 06/17/2021 3:26 PM CDT In reviewing the patient's diabetic quality metrics, I have found that the patient is not meeting all of their goals. A1C control not met Lab Results Component Value Date HGBA1C 9.3 (H) 05/26/2021 Last office visit on 05/26/21. Per Anabella Chow DNP's recommendations, patient is to follow up in 3months. Patient has appointment scheduled with PCP on 06/30/21. documented in this encounter Plan of Treatment Not on filedocumented as of this encounter Visit Diagnoses Not on filedocumented in this encounter Additional Health Concerns Assessment Noted Time PHQ-9 Depression Total Score: 1 05/26/2021 11:46 AM CD T documented as of this encounter Care Teams Pressurization Mechanic Relationship Specialty Start Date End Date Anabella Chow APRN, C.N.P., PCP - General Internal Medicine 04/1105/10/22 D.N.P. [address] [place] [address] documented as of this encounter
--- OUTSIDE RECORDS SUMMARY | 2022-07-27 09:25 | XMS_ITS | Encounter Summary ---
:1960 Author Organization [facility] Address [address] [place] [address] Care Team Providers Name Role Phone Elsewhere, Pcp Primary Care Provider Unavailable Reason for Visit Reason Comments Med Refill Encounter Details Date Type Department Care Team Description 07/07/2022 Refill Department of Internal Anabella Chow APRN, Med Refill Medicine in [place], C.N.P., D. N.P. [address] [address] [place] [address] [phone] Social History Tobacco Use Types Packs/Day Years [...] How often do you attend temple or methodist services? Patien t refused 06/26/2021 Do you [...] place to sleep or slept in a correction (including now)? Education Answer Date Recorded What is the highest level of school Associate degree: milan brody, 04/02/2019 you have completed or the highest technical, or vocational p rogram degree you have received? Sex Assigned at Date Recorded Not on file documented as of this encounter Miscellaneous Notes Telephone Encounter - Linda Lewis, L.P.N. - 07/07/2022 1:35 PM CDT Called patient and she is being seen in [place] with Dr Mcclure Telephone Encounter - Emily Mcclure R.N. - 07/07/2022 1:14 PM CDT Patient stated in 05/11/22 clinical communication that she is doctoring at an outside facility. Patient will need to request prescription from her PCP. Called patient, no answer. Left generic message for patient to return call. Need to know if patient is requesting this from outside PCP, or if she would like to be seen here again. Telephone Encounter - Abena Todd - 07/07/2022 12:17 PM CDT Lab Results Component Value Date HGBA1C 9.3 (H) 05/26/2021 Nurse review: Unable to forward request to provider; Discrepancy; Request is not on the current med list. Primary Provider: ELSEWHERE, PCP Requested Prescriptions Pending Prescriptions Disp Refills blood-glucose sensor (Dexcom G6 Sensor) device 9 each 4 Sig: CHANGE SENSOR EVERY 10 DAYS documented in this encounter Plan of Treatment Not on filedocumented as of this encounter Visit Diagnoses Diagnosis Diabetes Mellitus Type 2 Without Complic ation (HCC) documented in this encounter Additional Health Concerns Assessment Noted Time PHQ-9 Depression Total Score: 1 05/26/2021 11:46 AM CD T documented as of this encounter Care Teams Restaurant And Bar Manager Relationship Specialty Start Date End Date Elsewhere, Pcp PCP - General Internal Medicine 05/11/22 documented as of this encounter
--- OUTSIDE RECORDS SUMMARY | 2022-07-27 09:25 | XMS_ITS | Encounter Summary ---
:1960 Author Organization [facility] Address [address] [place] [address] Care Team Providers Name Role Phone Anabella Chow APRN, C.N.P., D.N.P. Primary Care Provider Encounter Details Date Type Department Care Team Description 02/24/2022 Orders Only [facility] An[facility] Chow APRN, C.N.P., D.N.P. [address] [place], [place] [address] (Wo rk) Social History Tobacco Use Types [...] 06/26/2021 relatives? How often do you attend scientologist or moravian services? Patien t refused 06/26/2021 Do you belong to any clubs or organizations such as Patient refused 06/26/2021 scientologist groups, unions, fraternal or athletic groups, or [...] place to sleep or slept in a senior living (including now)? Education Answer Date Recorded What [...] documented as of this encounter Care Teams Secondary Social Studies Teacher Relationship Specialty Start Date End Date Anabella Chow APRN, C.N.P., PCP - General Internal Medicine 04/1105/10/22 D.N.P. [address] [place] [address] documented as of this encounter
--- OUTSIDE RECORDS SUMMARY | 2022-07-27 09:25 | XMS_ITS | Encounter Summary ---
:1960 Author Organization [facility] Address [address] [place] [address] Care Team Providers Name Role Phone Anabella Chow APRN C.N.P., D.N.P. Primary Care Provider Reason for Visit Reason Comments Diabetes Quality Care Review Encounter Details Date Type Department Care Team Description 07/17/2021 Clinical Communication Department of Anabella Chow (Quality Internal Medicine TYRONE Harrison, Care Revie w) in [place], C.N.P., D.N.P. [address] [phone] Social History Tobacco Use [...] 06/26/2021 relatives? How often do you attend quaker or oriental orthodox services? Patien t refused 06/26/2021 Do you belong to any clubs or organizations such as Patient refused 06/26/2021 quaker groups, unions, fraternal or athletic groups, or [...] place to sleep or slept in a chcf (including now)? Education Answer Date Recorded What is the highest level of school Associate degree: milan brody, 04/02/2019 you have completed or the highest technical, or vocational p andreram degree you have received? Sex Assigned at Date Recorded Not on file documented as of this encounter Miscellaneous Notes Telephone Encounter - Emily Mcclure R.N. - 07/17/2021 4:58 PM CDT In reviewing the patient's diabetic quality metrics, I have found that the patient is not meeting all of their goals. A1C control not met Orders are entered. Lab Results Component Value Date HGBA1C 9.3 (H) 05/26/2021 Last office visit on 06/30/21, recommended follow up in 3 months. No appointment scheduled at this time. Portal sent to patient. documented in this encounter Plan of Treatment Not on filedocumented as of this encounter Visit Diagnoses Not on filedocumented in this encounter Additional Health Concerns Assessment Noted Time PHQ-9 Depression Total Score: 1 05/26/2021 11:46 AM CD T documented as of this encounter Care Teams Redipper Relationship Specialty Start Date End Date Anabella Chow APRN, C.N.P., PCP - General Internal Medicine 04/1105/10/22 D.N.P. [address] [place] [address] documented as of this encounter
--- OUTSIDE RECORDS SUMMARY | 2022-07-27 09:26 | XMS_ITS | Encounter Summary ---
:1960 Author Organization [facility] Address [address] [place] [address] Care Team Providers Name Role Phone Unavailable Primary Care Provider Unavailable Reason for Visit Physical Therapy (Routine) - Canceled Specialty Diagnoses / Procedures Referred By Contact Refer red To Contact Diagnoses Herniated Disc Lumbar Yandel Boswell M.D. [facility] Procedures PT Ongoing treatment [address] [place] [address] Referral ID Status Reason Start Date Expiration Date Visits V isits Requested Authorized [id number] Canceled 04/08/2020 10/10/2020 99 99 Encounter Details Date Type Department Care Team Description 05/14/2020 Clinical Support Department of Yandel Boswell M.D. [address] [place] [address] Herniated Disc Rehabilitation Niurka Serrano PSukhiT., D.P.T. Lumbar Services in [address] [phone] Social History Tobacco Use Types Packs/Day Years Used Date Smoking Tobacco: Never Alcohol Habits Answer Date Recorded [...] How often do you attend yarsani or zoroastrianism services? Shelli machuca refused 06/26/2021 Do you belong to any [...] was there a time when you were Shelli machuca refused 06/26/2021 not able to pay the [...] the highest level of school Associate degree: arshdo brody, 04/02/2019 you have completed or the highest technical, or vocational p brittani degree you have received? Sex Assigned at Date Recorded Not on file documented as of this encounter Progress Notes Niurka Serrano P.T., D.P.T. - 05/14/2020 10:30 AM CDT Physical Therapy Outpatient Treatment Note SUBJECTIVE Patient's Name: Angeles Morales Referring Provider: Yandel Boswell M.D. Visit Diagnosis: 1. Herniated Disc Lumbar Reason for Referral: PT eval and treat Onset Date: 03/29/20 Payor: [email or web address] / Plan: [employer] ACCESS / Product Type: PPO / No data recorded Epic Visit Count: 4 Patient comments: Patient states that her low back pain is improving. She states that she continues to have significant relief from her lumbar injection on 04/30. She states that she was able to walk down to the end of her driveway two times over the interval. She notes that she sometimes has numbness in her left foot by the end of the day. She is completing her HEP as instructed. OBJECTIVE Pain: no numeric pain value given today Lumbar screen: WNLs in all motions, slight pain reported with flexion Tenderness with palpation of left greater trochanteric bursa Obers test: - TREATMENT Treatment today consisted of: -Bridge x10 reps on exercise ball -Bridge x10 reps -Standing hip extension and hip abduction with orange theraband x10 reps -Bird dog Home Exercise Program/Education: HEP was updated. Discussed body mechanics with squatting. Pt reports good compliance with her HEP. Contact monitoring: PPE used during therapy: Therapist was wearing the following PPE throughout entire session: surgicalmask and eye protection Assessment Clinical Impression: Patient is progressing with strengthening exercises and tolerated the session well. Patient will continue to benefit from skilled PT to progress strengthening and optimize function. Functional Goals and Timeframes: PT Goal #1: Patient will score greater than or equal to 55 on LEFS to meet MCID of 9 points. PT Goal #1 Date: 06/17/20 PT Goal #2: Patient will be able to walk down her driveway and back with minimal low back pain. PT Goal #2 Date: 06/17/20 PT Goal #3: Patient will be able to complete light household activities with minimal low back pain. PT Goal #3 Date: 06/17/20 PT Goal #4: Patient will demonstrate ability to self-manage her HEP. PT Goal #4 Date: 06/17/20 PROGRESSING Plan Plan for next session: Sci-fit, FU on regular walking program, continue lumbar extension machine Time Spent with Patient Therapeutic Exercise (min): 32 min Time Calculation Total Timed Units (min): 32 min Total Treatment Time (min): 32 min Niurka Serrano P.T., D.P.T. Department of Rehabilitation Services in [address] [address] Dept: [phone] documented in this encounter Plan of Treatment Not on filedocumented as of this encounter Visit Diagnoses Diagnosis Herniated Disc Lumbar documented in this encounter
--- OUTSIDE RECORDS SUMMARY | 2022-07-27 09:26 | XMS_ITS | Encounter Summary ---
:1960 Author Organization [facility] Address [address] [place] [address] Care Team Providers Name Role Phone Elsewhere, Pcp Primary Care Provider Unavailable Reason for Referral Outpatient (Routine) - Closed Specialty Diagnoses / Procedures Referred By Contact Refer red To Contact Hematology Diagnoses Thrombocytopenia (HCC) Yesenia Sood, [facility] C.N.P. [address] [place], [place] [address] Referral ID Status Reason Start Date Expiration Date Visits Requ ested Visits Authorized [id number] Closed 02/22/2019 02/22/2020 1 1 Encounter Details Date Type Department Care Team Description 02/22/2019 [facility] [place], Thromboc ytopenia (HCC) [facility] Yesenia Valerio, (Primary Dx ) [facility] C.N.P. [address] [facility] [address] [place] [address] [phone] Social History Tobacco Use Types Packs/Day Years [...] 06/26/2021 relatives? How often do you attend religious or taoist services? Shelli machuca refused 06/26/2021 Do you belong to any clubs or organizations such as Patient refused 06/26/2021 religious groups, unions, fraternal or athletic groups, or [...] place to sleep or slept in a intermediate (including now)? Sex Assigned at Date Recorded Not on file documented as of this encounter Plan of Treatment Scheduled Referrals Name Type Priority Associated Diagnoses Order S mary Hematology Referral Outpatient Routine Thrombocytopenia (HCC ) Expected: Referral 02/22/2019 (Approximate), Expires: 02/22/2022 documented as of this encounter Visit Diagnoses Diagnosis Thrombocytopenia (HCC) - Primary documented in this encounter Care Teams Alteration Inspector Relationship Specialty Start Date End Date Elsewhere, Pcp PCP - General Internal Medicine 05/11/22 documented as of this encounter
--- OUTSIDE RECORDS SUMMARY | 2022-07-27 09:26 | XMS_ITS | Encounter Summary ---
:1960 Author Organization [facility] Address [address] [place] [address] Care Team Providers Name Role Phone Elsewhere, Pcp Primary Care Provider Unavailable Encounter Details Date Type Department Care Team Description 01/09/2021 Orders Only RST PCP [facility] Hudson Ochoa Jr., M.D. [address] [place] [address] [place] [phone] (Wo rk) Social History Tobacco Use Types [...] How often do you attend scientologist or mandaeism services? Patien t refused 06/26/2021 Do you [...] place to sleep or slept in a residential (including now)? Education Answer Date Recorded What [...] on filedocumented in this encounter Care Teams Acoustical Installer Relationship Specialty Start Date End Date Elsewhere, Pcp PCP - General Family Medicine 07/12/20 05/05/21 documented as of this encounter
--- OUTSIDE RECORDS SUMMARY | 2022-07-27 09:26 | XMS_ITS | Encounter Summary ---
:1960 Author Organization [facility] Address [address] [place] [address] Care Team Providers Name Role Phone Anabella Chow APRN C.N.PSukhi, D.N.P. Primary Care Provider Reason for Referral Outpatient (Routine) - Closed Specialty Diagnoses / Procedures Referred By Contact Refer red To Contact Diagnoses Screening Mammogram Average Risk Patient Anabella Chow APRN, [facility] [place] [facility] Procedures BI Breast Screening Bilateral with Tomosynthesis C.N.P., D.N.P. [address] [place] [address] Referral ID Status Reason Start Date Expiration Date Visits Requ ested Visits Authorized [id number] Closed 05/26/2021 05/26/2022 1 1 Reason for Visit Outpatient (Routine) - Closed Specialty Diagnoses / Procedures Referred By Contact Refer red To Contact Diagnoses Screening Mammogram Average Risk Patient Anabella Chow APRN, [facility] [place] [facility] Procedures BI Breast Screening Bilateral with Tomosynthesis C.N.P., D.N.P. [address] [place] [address] Referral ID Status Reason Start Date Expiration Date Visits Requ ested Visits Authorized [id number] Closed 05/26/2021 05/26/2022 1 1 Encounter Details Date Type Department Care Team Description 05/27/2021 Hospital Encounter Department of Anabella Chow Screen ing Mammogram Radiology in Gonzalo Harrison APRN, C.N.P., Aver age Risk Patient [place], [place] Nina.N.P. [address] [place] [phone] Social History Tobacco Use Types Packs/Day Years [...] 06/26/2021 relatives? How often do you attend mandaen or congregation services? Patien t refused 06/26/2021 Do you belong to any clubs or organizations such as Patient refused 06/26/2021 mandaen groups, unions, fraternal or athletic groups, or [...] place to sleep or slept in a nursing home (including now)? Education Answer Date Recorded What is the highest level of school Associate degree: milan brody, 04/02/2019 you have completed or the highest technical, or vocational p brittani degree you have received? Sex Assigned at Date Recorded Not on file documented as of this encounter Medications at Time of Discharge Medication Sig Dispensed Refills Start Date End Date administration supplies 0 02/12/2015 (INPEN, FOR NOVOLOG,) injector pen amLODIPine (NORVASC) 5 mg Take 1 tablet (5 mg 90 tablet 3 0 05/26/2021 tablet total) by mouth daily. atorvastatin (LIPITOR) 10 Take 1 tablet (10 90 tablet 3 mg tablet mg total) by mouth daily. blood sugar diagnostic USE DIRECTED TO 100 each 3 10/02 strips TEST TWO TIMES A DAY chlorthalidone (HYGROTON) Take 1 tablet (25 90 tablet 3 25 mg tablet mg total) by mouth daily. glipiZIDE (GLUCOTROL) 10 Take 1 tablet (10 180 tablet 3 05/11 mg tablet mg total) by mouth 2 (two) times a day before breakfast and dinner. insulin aspart U-100 Inject 7 Units 15 mL 3 05/26/2021 (NovoLOG FlexPen) 100 under the skin 3 unit/mL (3 mL) (three) times a day injectionIndications: with meals. Diabetes Mellitus Type 2 Without Complication (HCC) loratadine (CLARITIN) 10 Take 10 mg by mouth 0 mg tablet daily. metoprolol succinate Take 1 tablet (25 90 tablet 3 05/26/20 21 (TOPROL-XL) 25 mg 24 hr mg total) by mouth tablet daily. metoprolol succinate Take 1 tablet (50 90 tablet 3 05/26/20 21 (TOPROL-XL) 50 mg 24 hr mg total) by mouth tablet daily. SITagliptin (JANUVIA) 50 Take 1 tablet (50 90 tablet 3 05/11 mg tablet mg total) by mouth daily. traZODone (DESYREL) 100 Take 1 tablet (100 90 tablet 3 05/11 mg tabletIndications: mg total) by mouth Insomnia at bedtime. insulin glargine (Lantus Inject 42 Units 15 mL 3 202006/20/2021 Solostar U-100 Insulin) under the skin as 100 unit/mL (3 mL) directed. injection documented as of this encounter Plan of Treatment Not on filedocumented as of this encounter Procedures Procedure Name Priority Date/Time Associated Comments Diagnosis BI BREAST SCREENING RAD - Routine 05/27/2021 8:13 Screening Resu lts for BILATERAL WITH (most inpatients AM CDT Mammogram Average this procedure TOMOSYNTHESIS and all Risk Patient are in the outpatients) results section. documented in this encounter Results BI Breast Screening Bilateral with Tomosynthesis (05/27/2021 8:13 AM CDT) Anatomical Region Laterality Modality Breast, Breast Imaging RST LOS, Breast Imaging ARZ LOS, [place] [address] Bilateral Mammography Imaging FLA LOS Specimen (Source) Anatomical Collection Method Collection Time Re ceived Time Location / / Volume Laterality 05/27/2021 10:12 AM CDT Impressions 05/27/2021 10:15 AM CDT Negative. RECOMMENDATION: ??Annual Screening Mammo gram ASSESSMENT: ??BI-RADS: 1: Negative. Narrative 05/27/2021 10:15 AM CDT EXAM: ??BI BREAST SCREENING BILATERAL WITH TOMOSYNTHESIS Current study was evaluated with a Compu ter Aided Detection (CAD) system. INDICATION: ??Screening mammogram. COMPARISON: ??Prior exam(s) were availab le and reviewed for comparison. DENSITY: ??c. The breast(s) are heteroge neously dense, which may obscure small masses. FINDINGS: ??No mammographic findings of malignancy. Procedure Note Parish Maldonado M.D. - 05/27/2021Format ting of this note might be different from the original. EXAM: BI BREAST SCREENING BILATERAL WITH TOMOSYNTHESIS Current study was evaluated with a Compu ter Aided Detection (CAD) system. INDICATION: Screening mammogram. COMPARISON: Prior exam(s) were available and reviewed for comparison. DENSITY: c. The breast(s) are heterogene ously dense, which may obscure small masses. FINDINGS: No mammographic findings of ma lignancy. IMPRESSION: Negative. RECOMMENDATION: Annual Screening Mammogr am ASSESSMENT: BI-RADS: 1: Negative. Anabella Chow APRN, C.N.P., D.N.P. IMG BI PROCEDURES documented in this encounter Visit Diagnoses Diagnosis Screening Mammogram Average Risk Patient documented in this encounter Additional Health Concerns Assessment Noted Time PHQ-9 Depression Total Score: 1 05/26/2021 11:46 AM CD T documented as of this encounter Care Teams Carbon Brusher Assembler Relationship Specialty Start Date End Date Anabella Chow APRN, C.N.P., PCP - General Internal Medicine 04/1105/10/22 D.N.P. [address] [place] [address] documented as of this encounter
--- OUTSIDE RECORDS SUMMARY | 2022-07-27 09:26 | XMS_ITS | Encounter Summary ---
:1960 Author Organization [facility] Address [address] [place] [address] Care Team Providers Name Role Phone Anabella Chow APRN C.N.PSukhi, D.N.P. Primary Care Provider Reason for Visit Physical Therapy (Routine) - Closed Specialty Diagnoses / Procedures Referred By Contact Refer red To Contact Diagnoses Pain Hip Left Anabella Chow APRN, [facility] Procedures PT Evaluate and treat C.N.P., D.N.P. [address] [place] [phone] Referral ID Status Reason Start Date Expiration Date Visits Requ ested Visits Authorized [id number] Closed 05/26/2021 10/10/2021 1 1 Encounter Details Date Type Department Care Team Description 06/04/2021 Comprehensive Visit Department of Radha Chow APRN C.N.P., D.N.P. [address] [place] [phone] Pain Hip Left Rehabilitation Services Niurka Serrano P.T., D.P.T. in [address] [phone] Social History Tobacco Use Types Packs/Day Years [...] 06/26/2021 relatives? How often do you attend yazdanism or latter day services? Shelli t refused 06/26/2021 Do you belong to any clubs or organizations such as Patient refused 06/26/2021 yazdanism groups, unions, fraternal or athletic groups, or [...] on file documented as of this encounter Consult Notes Niurka Serrano P.T., D.P.T. - 06/04/2021 10:00 AM CDT Physical Therapy Outpatient Evaluation/Treatment SUBJECTIVE Patient's Name: Angeles Joehipolito Morales Referring Provider: Anabella Chow APRN, * Visit Diagnosis: 1. Pain Hip Left Reason for Referral: PT eval and treat Payor: [employer] / Plan: [employer] OPEN ACCESS / Product Type: PPO / Epic Visit Count: 1 PERTINENT MEDICAL / SURGICAL HISTORY: Patient Active Problem List Diagnosis ??? Diabetes Mellitus Type 2 Without Complication (HCC) ??? Hypertensive Chronic Kidney Disease (CKD) Stage 3b Glomerular Filtration Rate (GFR) 30 To 44 (HCC) ??? Chronic Kidney Disease Stage 4 Glomerular Filtration Rate 15-29 (HCC) ??? Herniated Disc Lumbar ??? Hyperlipidemia ??? Insomnia ??? Major Depressive Disorder Single Episode Unspecified ??? Mass Adnexal ??? Obesity Body Mass Index 30-39.9 Adult ??? Pain Cervical ??? Sciatica ??? Thrombocytopenia (HCC) ??? Morbid Severe Obesity Due To Excess Calories (HCC) ??? Pain Hip Left Past Surgical History: Procedure Laterality Date ??? BILATERAL TUBAL LIGATION N/A Bilateral tubal ligation ??? DESTRUCTIVE PROCEDURE N/A 2005 Ablation ??? OPERATIVE LAPAROSCOPY N/A 08/08/2016 Operative laparoscopy ??? SALPINGO - OOPHORECTOMY ??? SALPINGO-OOPHORECTOMY Bilateral 08/08/2016 Salpingo-oophorectomy Angeles Morales is a 60 y.o. female who presents to outpatient physical therapy for evaluation. Her symptoms consist of: 1. Left hip pain Overall she reports her status remains the same. History of Present Illness:Patient presents with left hip pain that started in April of 2021 when shewas stepping out of a truck. She states that her pain is worse with prolonged sitting, standing or walking. Her pain is better at the end of the day. She had an x-ray on 05/26/21 which reported calcifictendinitis at the left greater trochanter and arthritis in the lumbars spine. Her pain is right overthe left greater trochanter and does not radiate. She reports no numbness or tingling. She reports no recent falls. She is not currently working. She enjoys sewing. Aggravating Factors: prolonged walking, sitting, standing Relieving Factors: rest Patient goals:to be able to hold 15 lb grandson without left hip pain and to be able to walk withoutleft hip pain Contact monitoring: PPE used during therapy: Therapist was wearing the following PPE throughout entire session: surgicalmask and eye protection Patient was wearing a mask during therapy session: yes Additional Staff Present During Session: No OBJECTIVE REVIEW OF SYSTEMS Negative except Left hip pain Musculoskeletal ROS: positive for - gait disturbance, muscle pain and muscular weakness PHYSICAL EXAM Pain: Pain Assessment Pain Assessment: 0-10 Numeric Pain Intensity Scale Pain Score: 4 Gait/Stairs: Gait Assessment/Training Distance (m): (100 feet) Surface: Even Device: No device Level of Assistance: Independent Quality/Pattern: Trendelenburg Stability: no LOB Assessment of Gait: decreased gait speed LEFS: 50/80- Patient reports the most difficulty with recreational activities, squatting, lifting, prolonged walking or standing Lumbar Screen: Flexion: WNLs painful on low back and posterior thigh of both legs Extension: WNLs pain free Rotation Left: WNLs pain free Rotation Right: WNLs pain free Side bending Left: WNLs pain free Side bending Right: WNLs pain free Hip strength (Left/Right): Flexion: 4/5 Abduction: 4/5 Extension: 4/5 Hamstrings: 4/4 Quads: 4/4 Hip PROM (Left/Right): Flexion: 120/120 ER: 45/45 IR: 45/45 Posture: rounded shoulders Sensation: LE sensation intact bilaterally Palpation: Moderate tenderness over left greater trochanter Special Test (Left/Right): Scours: -/NT FADIR: -/NT NAVJOT: -/NT Obers: NT/NT SLR: -/- TREATMENT Treatment today consisted of: -Long axis distraction to left hip in supine Access Code: [email or web address] Exercises ??? Supine Bridge - 1 x daily - 7 x weekly - 3 sets - 10 reps ??? Supine Active Straight Leg Raise - 1 x daily - 7 x weekly - 3 sets - 10 reps ??? Clamshell - 1 x daily - 7 x weekly - 3 sets - 10 reps ??? Supine Double Knee to Chest - 1 x daily - 7 x weekly - 3 sets - 30 seconds hold Home Exercise Program/Education: Instructed on HEP. Discussed the importance of changing positions frequently and maintaining regular walking program as left hip tolerates. Assessment Clinical Impression: Ms. Morales presents to physical therapy with signs and symptoms consistent with left hip pain that is not radiating distally, with gluteus medius weakness. Impairments: AROM, strength, endurance Functional deficits: standing, sitting, squatting, walking Rehab Potential: Ms. Morales has Good potential to achieve established physical therapy goals within the time frame outlined below, provided she actively participates in her physical therapy treatment plan and home program. Comorbid Conditions: (Diabetes type II, hypertension) Clinical Presentation: Stable Examination elements: 1-2 Clinical Decision Making: Low complexity clinical decision making Functional Goals and Timeframes: PT Outpatient Goals PT Goal #1: Patient will score greater than 59/80 on LEFS in order to mett MCID. PT Goal #1 Date: 07/30/21 PT Goal #2: Patient will be able to hold her grandson for 15 minutes with minimal left hip pain. PT Goal #2 Date: 07/30/21 PT Goal #3: Patient will be able to walk 2 blocks with minimal left hip pain. PT Goal #3 Date: 07/30/21 PT Goal #4: Patient will demonstrate the ability to self-manage his HEP. PT Goal #4 Date: 07/30/21 Plan Ms. Morales was educated regarding evaluative findings, diagnosis, prognosis, potential risks and benefits of rehabilitation interventions. A collaborative effort was used to establish goals and plan ofcare. She was informed of her right to make decisions regarding her care, including refusal of examination or treatment or selection of services from another provider if desired. The treatment plan maybe progressed or modified based upon her response to treatment. Physical Therapy Attestation Statement: Patient agrees with the plan of care and goals. Treatment Plan: Plan: Plan of care initiated Start of Plan of Care: 06/04/2021 Number of Visits:8 visits PT Duration: (8 weeks) PT Frequency: PT Frequency: 1 time per week Treatment interventions may include: Treatment/Interventions: Therapeutic exercise, Therapeutic functional activity, Neuromuscular re-education, Manual therapy, Gait training, Therapeutic modalities as needed Plan for next session: add standing hip strengthening exercises, sci-fit Time Spent with Patient PT Evaluation (min): 25 min Time Calculation Total Treatment Time (min): 25 min Niurka Serrano P.T., D.P.T. Department of Rehabilitation Services in [address] [address] Dept: [phone] documented in this encounter Plan of Treatment Not on filedocumented as of this encounter Visit Diagnoses Diagnosis Pain Hip Left documented in this encounter Additional Health Concerns Assessment Noted Time PHQ-9 Depression Total Score: 1 05/26/2021 11:46 AM CD T documented as of this encounter Care Teams Beam Builder Helper Relationship Specialty Start Date End Date Anabella Chow APRN, C.N.P., PCP - General Internal Medicine 04/1105/10/22 D.N.P. [address] [place] [phone] documented as of this encounter
--- OUTSIDE RECORDS SUMMARY | 2022-07-27 09:26 | XMS_ITS | Encounter Summary ---
:1960 Author Organization [facility] Address [address] [place] [address] Care Team Providers Name Role Phone Unavailable Primary Care Provider Unavailable Reason for Visit Reason Comments COVID Inquiry Encounter Details Date Type Department Care Team Description 04/01/2020 Clinical Communication Department of Niurka Serrano VINina Inquiry Rehabilitation Services M, P.T., D.P.T. in [facility] [phone] [id number] Social History Tobacco Use Types Packs/Day Years [...] 06/26/2021 relatives? How often do you attend baptism or bahai services? Patien t refused 06/26/2021 Do you belong to any clubs or organizations such as Patient refused 06/26/2021 baptism groups, unions, fraternal or athletic groups, or [...] or slept in a intermediate (including now)? Education Answer Date Recorded What is the highest level of school Associate degree: milan brody, 04/02/2019 you have completed or the highest technical, or vocational p rogram degree you have received? Sex Assigned at Date Recorded Not on file documented as of this encounter Miscellaneous Notes Telephone Encounter - Jena Rivera - 04/01/2020 4:10 PM CDT (Note for [facility] locations only: If the patient states they are asking for testing because attended a protest, king, community cleanup or other mass gathering in the last 7 days and is asking for testing, complete the below questions and transfer to the COVID Nurse Line). In the past 30 days have you had a swab for COVID that tested positive? no Route reply to: Scheduling Contact Number: documented in this encounter Plan of Treatment Not on filedocumented as of this encounter Visit Diagnoses Not on filedocumented in this encounter
--- OUTSIDE RECORDS SUMMARY | 2022-07-27 09:26 | XMS_ITS | Encounter Summary ---
:1960 Author Organization [facility] Address [address] [place] [address] Care Team Providers Name Role Phone Unavailable Primary Care Provider Unavailable Reason for Visit Physical Therapy (Routine) - Canceled Specialty Diagnoses / Procedures Referred By Contact Refer red To Contact Diagnoses Herniated Disc Lumbar Yandel Boswell M.D. [facility] Procedures PT Ongoing treatment [address] [place] [address] Referral ID Status Reason Start Date Expiration Date Visits V isits Requested Authorized [id number] Canceled 04/08/2020 10/10/2020 99 99 Encounter Details Date Type Department Care Team Description 05/06/2020 Clinical Support Department of Yandel Boswell M.D. [address] [place] [address] Herniated Disc Rehabilitation Francisca Landry, P.T. [address] [place] [id number] Lumbar Services in [address] [phone] Social History Tobacco Use Types Packs/Day Years [...] 06/26/2021 relatives? How often do you attend hindu or islam services? Shelli machuca refused 06/26/2021 Do you belong to any clubs or organizations such as Patient refused 06/26/2021 hindu groups, unions, fraternal or athletic groups, or [...] to sleep or slept in a senior care (including now)? Education Answer Date Recorded What is the highest level of school Associate degree: arshdo brody, 04/02/2019 you have completed or the highest technical, or vocational p brittani degree you have received? Sex Assigned at Date Recorded Not on file documented as of this encounter Progress Notes Francisca Landry P.T. - 05/06/2020 10:30 AM CDT Physical Therapy Outpatient Treatment Note SUBJECTIVE Patient's Name: Angeles Morales Referring Provider: Yandel Boswell M.D. Visit Diagnosis: 1. Herniated Disc Lumbar Reason for Referral: PT eval and treat Onset Date: 03/29/20 Payor: [employer] / Plan: [employer] OPEN ACCESS / Product Type: PPO / No data recorded Epic Visit Count: 3 Patient comments: patient has reported a significant decrease in pain. Patient reports she feels much better after the injection. Patient no longer has symptoms radiating down her leg. OBJECTIVE Pain: 10/20 TREATMENT Treatment today consisted of: Patient perform the back extension at 65 lb 3 x 10 repetitions. Progressed standing hip extension toa Thera-Band for resistance at 3 x 10 repetitions bilaterally. Bridging was progressed to bridging with her feet on an exercise ball at 2 x 10 repetitions. We then initiated bird dog exercise at 20 repe titions. Worked on engaging the transverse abdominis. Home Exercise Program/Education: Patient will continue with current home exercise program adding an orange Thera-Band for resistance for standing hip extension and patient will at the bird dog exercises well. All other exercises remain the same. Pt reports good compliance with her HEP. Contact monitoring: PPE used during therapy: Therapist was wearing the following PPE throughout entire session: surgicalmask and eye protection Patient was wearing a mask during therapy session: yes Additional Staff Present During Session: No Assessment Clinical Impression: Tolerated treatment session well. Patient is progressing very well with centralization of symptoms and significant reduction in pain. Patient will continue to benefit from skilled physical therapy to develop a core stabilization program. Functional Goals and Timeframes: PT Goal #1: [...] her HEP. PT Goal #4 Date: 06/17/20 Plan Plan for next session: Continue with current plan of care progressing as able. Time Spent with Patient Therapeutic Exercise (min): 25 min Time Calculation Total Timed Units (min): 25 min Total Treatment Time (min): 25 min Francisca Landry P.T. Department of Rehabilitation Services in [address] [phone] Dept: [phone] documented in this encounter Plan of Treatment Not on filedocumented as of this encounter Visit Diagnoses Diagnosis Herniated Disc Lumbar documented in this encounter
--- OUTSIDE RECORDS SUMMARY | 2022-07-27 09:26 | XMS_ITS | Encounter Summary ---
:1960 Author Organization [facility] Address [address] [place] [address] Care Team Providers Name Role Phone Unavailable Primary Care Provider Unavailable Reason for Visit Outpatient (Routine) - Closed Specialty Diagnoses / Procedures Referred By Contact Refer red To Contact Hematology Diagnoses [facility] [address] [place], [place] [address] Referral ID Status Reason Start Date Expiration Date Visits Requ ested Visits Authorized [id number] Closed 02/22/2019 02/22/2020 1 1 Encounter Details Date Type Department Care Team Description 04/05/2019 Comprehensive Visit Division of Luis Hill Thromboc ytopenia (HCC) Hematology in [place] [address] [place] [phone] Social History Tobacco Use Types Packs/Day Years [...] 06/26/2021 relatives? How often do you attend sikh or alevism services? Patilaurence t refused 06/26/2021 Do you belong to any clubs or organizations such as Patient refused 06/26/2021 sikh groups, unions, fraternal or athletic groups, or [...] Sign Reading Time Taken Comments Blood Pressure 159/83 04/05/2019 1:10 PM CDT Pulse 59 04/05/2019 1:10 PM CDT Temperature 37 ??C (98.6 ??F) 04/05/2019 1:10 PM CDT Respiratory Rate - - Oxygen Saturation - - Inhaled Oxygen Concentration - - Weight 98.7 kg (217 lb 9.5 oz) 04/05/2019 1:10 PM CDT Height 162.7 cm (5' 4.06) 04/05/2019 1:10 PM CDT Body Mass Index 37.29 04/05/2019 1:10 PM CDT documented in this encounter Consult Notes Luis Hill M.D. - 04/05/2019 1:30 PM CDT SUBJECTIVE REFERRAL SOURCE Yesenia Sood APRN, [place] [address] Phone is [phone]. REASON FOR CONSULT Mrs. Morales is a 58-year-old white female who is referred by Ms. Sood for evaluation of thrombocytopenia. HISTORY OF PRESENT ILLNESS Mrs. Morales was diagnosed with type 2 diabetes mellitus roughly 5 years ago. She was on metformin, but this was discontinued in 2014 and she was switched to glipizide and Januvia. She was subsequently started on insulin. She is also under treatment for hypertension. She was treated here by Nephrology in early 2015 for an elevated creatinine thought secondary to NSAID use. Her creatinine has subsequently been stable. She also had a right ovarian cyst removed here laparoscopically in 2015. In regard to her platelet count, there are platelet counts in Care Everywhere dating back to March when her platelets were 125,000 with a normal hemoglobin of 14.1 and white blood count of 8.9. Since then, her platelets have fluctuated between 108,000 and 133,000. Her hemoglobin has remained normal. Her white count has also been normal except in July 2016 it was 13.1. Platelet counts here at [facility] dating back to December of 2015 had been at 132,000 at that time and then fluctuated between 111,000 and 143,000 with the last reading here in August of 2016 at 122,000. Mrs. Morales does not know if she ever had a normal platelet count in the past. She has not had any difficulty with bleeding, except she occasionally gets some mild nosebleeds whenshe blows her nose and then will have some dripping that can come from either nostril. These tend tooccur more in the winter months. She does have some easy bruising, but this has been present for a long time. She has not had any other bleeding difficulties. Some of her concern about her platelets relates to a cousin of hers who was noted to have thrombocytopenia and subsequently diagnosed with leukemia in the near past. 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 Current Outpatient Medications: ??? acetaminophen (OFIRMEV) 1,000 mg/100 mL (10 mg/mL) injection, Take 1,000 mg by mouth as needed.,Disp: , Rfl: ??? acetaminophen (TYLENOL EXTRA STRENGTH) 500 mg tablet, Take 1-2 tablets by mouth every 6 (six) hours as needed., Disp: , Rfl: ??? administration supplies (INPEN, FOR NOVOLOG,) injector pen, , Disp: , Rfl: ??? amlodipine besylate (AMLODIPINE ORAL), , Disp: , Rfl: ??? amLODIPine-atorvastatin (CADUET) 5-10 mg per tablet, Take by mouth daily., Disp: , Rfl: ??? atorvastatin calcium (ATORVASTATIN ORAL), , Disp: , Rfl: ??? CHLORTHALIDONE ORAL, , Disp: , Rfl: ??? cholecalciferol (VITAMIN D3) 2,000 Unit capsule, Take 1 capsule by mouth daily., Disp: , Rfl: ??? glipiZIDE (GLUCOTROL) 10 mg tablet, Take 10 mg by mouth daily., Disp: , Rfl: ??? GLIPIZIDE ORAL, , Disp: , Rfl: ??? insulin glargine (LANTUS SOLOSTAR U-100 INSULIN) 100 unit/mL (3 mL) injection, Inject 22 Units under the skin as directed., Disp: , Rfl: ??? insulin glargine (LANTUS U-100 INSULIN) 100 unit/mL injection, Inject under the skin., Disp: , Rfl: ??? loratadine (CLARITIN) 5 mg/5 mL solution, if needed, Disp: , Rfl: ??? metoprolol succinate (TOPROL-XL) 25 mg 24 hr tablet, Take 1 tablet by mouth daily., Disp: , Rfl: ??? metoprolol succinate (TOPROL-XL) 50 mg 24 hr tablet, Take 1 tablet by mouth daily., Disp: , Rfl: ??? METOPROLOL SUCCINATE ORAL, Take 75 mg by mouth daily., Disp: , Rfl: ??? SITagliptin (JANUVIA) 50 mg tablet, Take 50 mg by mouth daily., Disp: , Rfl: ??? SITagliptin (JANUVIA) 50 mg tablet, , Disp: , Rfl: ??? traZODone (DESYREL) 50 mg tablet, , Disp: , Rfl: ??? metoprolol tartrate (LOPRESSOR) 25 mg tablet, , Disp: , Rfl: ??? metoprolol tartrate (LOPRESSOR) 50 mg tablet, , Disp: , Rfl: Constitutional: Positive for fatigue and fever. ENT: Positive for difficulty hearing and persistent hoarse voice. Respiratory: Positive for coughing up mucus (phlegm), dyspnea and wheezing. Genitourinary: Positive for incontinence. Neurological: Positive for numbness or shooting pain in hands, arms, legs, or feet. The following systems were negative: Skin, Eyes, CV, GI, Hematologic, Musculoskeletal, Psych Past Surgical History: Procedure Laterality Date ??? BILATERAL TUBAL LIGATION N/A Bilateral tubal ligation ??? DESTRUCTIVE PROCEDURE N/A 2005 Ablation ??? OPERATIVE LAPAROSCOPY N/A 08/08/2016 Operative laparoscopy ??? SALPINGO - OOPHORECTOMY ??? SALPINGO-OOPHORECTOMY Bilateral 08/08/2016 Salpingo-oophorectomy Family History Problem Relation Age of Onset ??? Diabetes Mother ??? Heart disease Mother ??? Hypertension Mother ??? Cancer Grandfather Social History Socioeconomic History ??? Marital status: Spouse name: Not on file ??? Number of children: Not on file ??? Years of education: Not on file ??? Highest education level: Associate degree: occupational, technical, or vocational program Occupational History ??? Not on file Social Needs ??? Financial resource strain: Not hard at all ??? Food insecurity: Worry: Never true Inability: Never true ??? Transportation needs: Medical: No Non-medical: No Tobacco Use ??? Smoking status: Never Smoker Substance and Sexual Activity ??? Alcohol use: Not on file ??? Drug use: Not on file ??? Sexual activity: Not on file Lifestyle ??? Physical activity: Days per week: 6 days Minutes per session: 40 min ??? Stress: Only a little Relationships ??? Social connections: Talks on phone: Once a week Gets together: Once a week Attends alevism service: Patient refused Active member of club or organization: Yes Attends meetings of clubs or organizations: More than 4 times per year Relationship status: ??? Intimate partner violence: Fear of current or ex partner: Not on file Emotionally abused: Not on file Physically abused: Not on file Forced sexual activity: Not on file Other Topics Concern ??? Not on file Social History Narrative ??? Not on file OBJECTIVE VITAL SIGNS Height 162.7 cm, weight 98.7 kg, temp 37, pulse 59, blood pressure 159/83. PHYSICAL EXAMINATION General: No acute distress. Head: Examined and normal. ENT: No oral lesions. Lymph: No nodes are palpable. Lungs: Clear to auscultation. Heart: Regular rate and rhythm. Abdomen: Soft and nontender. No masses. No organomegaly. Extremities: No edema. ASSESSMENT / PLAN #1 Chronic mild thrombocytopenia Mrs. Morales has had stable mild thrombocytopenia now for at least 3 years. There has been no clear trend downward of her platelet count and it is not at a very low level. Her white blood count and hemoglobin have remained normal. These lessen my concern for a bone marrow problem considerably and I reassured her that it is highly unlikely that she has a malignant disorder such as leukemia. I suspect this either represents some mild ITP which would be an immune reaction against her platelets but this also could be drug related. There is a risk of thrombocytopenia with her glipizide. I do not think this needs to be discontinued, however, given the mild and stable nature of her thrombocytopenia. We discussed the possibility of doing a bone marrow biopsy, but I do not feel that this is indicatedat this time. The patient is comfortable with that. I would recommend continued monitoring of her platelet count roughly every 3 months or so just to make sure there is no trend downward in the future. I do not feel that further testing is indicated right now. We briefly discussed HIV testing, but she has never used recreational drugs and has been in amonogamous relationship for the past 40 years. #2 Type 2 diabetes mellitus #3 Hypertension on therapy I would be happy to see the patient anytime in the future. I will send a letter to Sood. MARGIN CODE: Consult 4. CT CT Job ID: [id number] documented in this encounter Plan of Treatment Not on filedocumented as of this encounter Visit Diagnoses Diagnosis Thrombocytopenia (HCC) documented in this encounter
--- OUTSIDE RECORDS SUMMARY | 2022-07-27 09:26 | XMS_ITS | Encounter Summary ---
:1960 Author Organization [facility] Address [address] [place] [address] Care Team Providers Name Role Phone Unavailable Primary Care Provider Unavailable Reason for Visit Physical Therapy (Routine) - Canceled Specialty Diagnoses / Procedures Referred By Contact Refer red To Contact Diagnoses Herniated Disc Lumbar Yandle Boswell M.D. [facility] Procedures PT Ongoing treatment [address] [place] [address] Referral ID Status Reason Start Date Expiration Date Visits V isits Requested Authorized [id number] Canceled 04/08/2020 10/10/2020 99 99 Encounter Details Date Type Department Care Team Description 05/28/2020 Clinical Support Department of Yandel Boswell M.D. [address] [place] [address] Herniated Disc Rehabilitation Niurka Serrano PSukhiT., D.P.T. Lumbar Services in [address] [phone] Social History Tobacco Use Types Packs/Day Years [...] 06/26/2021 relatives? How often do you attend shinto or sikhism services? Shelli machuca refused 06/26/2021 Do you belong to any clubs or organizations such as Patient refused 06/26/2021 shinto groups, unions, fraternal or athletic groups, or [...] place to sleep or slept in a jail (including now)? Education Answer Date Recorded What is the highest level of school Associate degree: arshdo brody, 04/02/2019 you have completed or the highest technical, or vocational p brittani degree you have received? Sex Assigned at Date Recorded Not on file documented as of this encounter Progress Notes Niurka Serrano P.T., Nina.P.T. - 05/28/2020 9:00 AM CDT Physical Therapy Outpatient Treatment Note SUBJECTIVE Patient's Name: Angeles Morales Referring Provider: Yandel Boswell M.D. Visit Diagnosis: 1. Herniated Disc Lumbar Reason for Referral: PT eval and treat Onset Date: 03/29/20 Payor: [employer] / Plan: [employer] OPEN ACCESS / Product Type: PPO / No data recorded Epic Visit Count: 6 Patient comments: Patient states that her low back is feeling much better. She states that she is walking and completing light household activities with no pain. She states that she does have occasional left radiating pain in the evening after a busy day. She states that she is completing her HEP as in structed. OBJECTIVE Pain: 0/10 Lumbar screen: WNLs in all motions (including flexion), radiating pain reported with flexion Hip strength (left/right): Flexion: 5/5 Extension: 5/5 Hamstrin/5 Abduction: 5/5 LEFS: 54/56 (not all items were scored) Patient reports the most difficulty with putting on socks and shoes and sitting for one hour TREATMENT Treatment today consisted of: -Trialed single leg bridging - patient fatigued quickly Access Code: [email or web address] Exercises ??? Supine Bridge with Heels on Filipino Ball and Knees Bent - 10 reps - 3 sets - 1x daily - 7x weekly ??? Bridge with Heels on Filipino Ball - 10 reps - 3 sets - 1x daily - 7x weekly ??? Not assessed today: Bird Dog - 10 reps - 3 sets - 1x daily - 7x weekly ??? Not assessed today: Prone Press Up on Elbows - 10 reps - 1x daily - 7x weekly ??? Not assessed today: Standing Hip Extension - 10 reps - 2-3 sets - 1x daily - 7x weekly ??? Not assessed today: Standing Hip Abduction Kicks - 10 reps - 3 sets - 1x daily - 7x weekly Home Exercise Program/Education: Patient instructed to continue with HEP for another 3 months 3-5x/week. Discussed progressing walking distance as able. Pt reports good compliance with her HEP. Contact monitoring: PPE used during therapy: Therapist was wearing the following PPE throughout entire session: surgicalmask and eye protection Assessment Clinical Impression: Patient demonstrates improved lumbar flexion AROM. Patient is ready to be discharge from PT at this time. Patient will self-manage her HEP. Functional Goals and Timeframes: PT Goal #1: Patient will score greater than or equal to 55 on LEFS to meet MCID of 9 points. GOAL ALMOST MET (54/56) PT Goal #1 Date: 06/17/20 PT Goal #2: Patient will be able to walk down her driveway and back with minimal low back pain. GOALMET PT Goal #2 Date: 06/17/20 PT Goal #3: Patient will be able to complete light household activities with minimal low back pain. GOAL MET PT Goal #3 Date: 06/17/20 PT Goal #4: Patient will demonstrate ability to self-manage her HEP. GOAL MET PT Goal #4 Date: 06/17/20 PROGRESSING Plan Plan for next session: Patient will self-manage her HEP at this time. Patient instructed to call with any questions or concerns. Time Spent with Patient Therapeutic Exercise (min): 25 min Time Calculation Total Timed Units (min): 25 min Total Treatment Time (min): 25 min Niurka Serrano P.T., D.P.T. Department of Rehabilitation Services in [address] [phone] Dept: [phone] documented in this encounter Plan of Treatment Not on filedocumented as of this encounter Visit Diagnoses Diagnosis Herniated Disc Lumbar documented in this encounter
--- OUTSIDE RECORDS SUMMARY | 2022-07-27 09:26 | XMS_ITS | Encounter Summary ---
:1960 Author Organization [facility] Address [address] [place] [address] Care Team Providers Name Role Phone Unavailable Primary Care Provider Unavailable Reason for Visit Physical Therapy (Routine) - Closed Specialty Diagnoses / Procedures Referred By Contact Refer red To Contact Diagnoses Herniated Disc Lumbar Yandel Boswell M.D. [facility] Procedures PT Evaluate and treat [address] [place] [address] Referral ID Status Reason Start Date Expiration Date Visits Requ ested Visits Authorized [id number] Closed 04/01/2020 10/10/2020 1 1 Encounter Details Date Type Department Care Team Description 04/08/2020 Comprehensive Visit Department of Aren Boswell M.D. [address] [place] [address] Herniated Disc Rehabilitation Niurka Serrano PSukhiT., D.P.T. Lumbar Services in [address] [phone] Social History Tobacco Use Types Packs/Day Years [...] 06/26/2021 relatives? How often do you attend jew or amish services? Shelli machuca refused 06/26/2021 Do you belong to any clubs or organizations such as Patient refused 06/26/2021 jew groups, unions, fraternal or athletic groups, or [...] this encounter Consult Notes Niurka Serrano P.T., Nina.P.T. - 04/08/2020 10:30 AM CDT Physical Therapy Outpatient Evaluation/Treatment By co-signing this note, the provider certifies the therapy being provided to this patient is reasonable and necessary for the diagnosis or treatment of this patient. SUBJECTIVE Patient's Name: Angeles Morales Referring Provider: Yandel Boswell M.D. Visit Diagnosis: 1. Herniated Disc Lumbar Reason for Referral: PT eval and treat Onset Date: 03/29/20 Payor: [employer] / Plan: [employer] ACCESS / Product Type: PPO / Hemoteq Visit Count: 1 PERTINENT MEDICAL / SURGICAL HISTORY: Patient Active Problem List Diagnosis ??? Diabetes Mellitus Type 2 (HCC) ??? Hypertension ??? Chronic Kidney Disease Stage 3 Glomerular Filtration Rate 30 To 59 (HCC) ??? Herniated Disc Lumbar Past Surgical History: Procedure Laterality Date ??? BILATERAL TUBAL LIGATION N/A Bilateral tubal ligation ??? DESTRUCTIVE PROCEDURE N/A 2005 Ablation ??? OPERATIVE LAPAROSCOPY N/A 08/08/2016 Operative laparoscopy ??? SALPINGO - OOPHORECTOMY ??? SALPINGO-OOPHORECTOMY Bilateral 08/08/2016 Salpingo-oophorectomy Angeles Morales is a 59 y.o. female who presents to outpatient physical therapy for evaluation. Her symptoms consist of: 1. Low back pain Overall she reports her status is improving . History of Present Illness: Patient states that her low back pain started gradually about 2 years ago. She states that in August of 2019 she started experiencing increased pain with leaf blowing and yard work. She states that her pain improved over the winter and then increased in February, with no additional injury. She states that she had been seeing a Chiropractor with some improvement. She states that int he beginning of March she was taking Prednisone for 5 days as prescribed. She reports decreasedpain since taking Prednisone. She states that sitting, walking long distance and lifting make her pain worse. She states that her pain is better with ice and rest. She states that she is icing at nightas needed. She recently had an MRI which showed an L4/5 disk herniation and L3/L4 disk bulge. She states that her pain radiates to her left lower leg. She reports no numbness or tingling. She notes that her driveway is about half a mile long. She states that she is able to walk about 3/4ths of the waydown and back, but reports increased pain with this. Occupational Profile: retired, enjoys sewing and gardening Patient goals: To sew and garden with now low back pain OBJECTIVE REVIEW OF SYSTEMS Negative except low back pain Musculoskeletal ROS: positive for - joint pain, joint stiffness, muscle pain and muscular weakness PHYSICAL EXAM Pain: No numeric value given today Ortho Exam Outcome Measures: LEFS: 46/64 (not all items were scored) - Patient reports the most difficulty withlifting, heavy household activities, walking 2 blocks and walking one mile Lumbar Screen: Flexion: WNLs, pain in left lower leg near gastroc region Extension: WNLs, pain free Rotation Left: WNLs pain free Rotation Right: WNLs pain free Side bending Left: WNLs pain free Side bending Right: WNLs pain free Hip strength (Left/Right): Flexion: 5/5 Abduction: 4/4 Extension: 3+/5 Hamstrings: 5/5 Quads: 5/5 Hip PROM (Left/Right): Flexion: 120/120 ER: 25/25 IR: 25/ Posture: Rounded shoulders, forward head Special Test (Left/Right): SLR: -/- TREATMENT Treatment today consisted of: Access Code: [email or web address] Exercises ??? Prone Press Up on Elbows - 10 reps - 1x daily - 7x weekly ??? Standing Lumbar Extension - 10 reps - 1x daily - 7x weekly ??? Bridge - 10 reps - 2-3 sets - 3 seconds hold - 1x daily - 7x weekly ??? Standing Hip Extension - 10 reps - 2-3 sets - 1x daily - 7x weekly ??? Gastroc Stretch on Wall - 2-3 reps - 20-30 seconds hold - 1x daily - 7x weekly Home Exercise Program/Education: Patient was instructed on HEP. Model was used to educate patient onherniated disk. Instructed on regular walking program. Patient will start by walking 1/[address] and back each day and progress slowly as her pain allows. Discussed techniques for getting on and off the floor while maintaining good biomechanics. Contact monitoring: PPE used during therapy: Therapist was wearing the following PPE throughout entire session: surgicalmask and eye protection Assessment Clinical Impression: Ms. Morales presents to physical therapy with signs and symptoms consistent with low pack pain radiating past left knee. Impairments: AROM, strength, endurance Functional Deficits: Bending, lifting, walking Rehab Potential: Ms. Morales has Good potential to achieve established physical therapy goals within the time frame outlined below, provided she actively participates in her physical therapy treatment plan and home program. Comorbidities: DM Type II, hypertension, CKD stage III Clinical Presentation: Stable Examination elements: 1-2 Clinical Decision Making: Low: no complicating factors, 1-2 eval elements, stable clinical presentation Functional Goals and Timeframes: PT Goal #1: [...] HEP. PT Goal #4 Date: 06/17/20 Plan Ms. Morales was educated regarding evaluative [...] modified based upon her response to treatment. Treatment Plan: Start of Plan of Care: 04/08/2020 Number of Visits: 10 visits PT Duration: 10 weeks PT Frequency: 1-2x/week Treatment interventions may include: Therapeutic exercise, Therapeutic functional activity, Gait training, Neuromuscular re-education, Manual therapy, Therapeutic modalities as needed Plan for next session: Sci-fit, FU on regular walking program, lumbar extension machine Time Spent with Patient PT Evaluation (min): 36 min Time Calculation Total Treatment Time (min): 36 min Niurka Serrano P.T., D.P.T. Department of Rehabilitation Services in [address] [address] Dept: [phone] documented in this encounter Plan of Treatment Not on filedocumented as of this encounter Visit Diagnoses Diagnosis Herniated Disc Lumbar documented in this encounter
--- OUTSIDE RECORDS SUMMARY | 2022-07-27 09:26 | XMS_ITS | Encounter Summary ---
:1960 Author Organization [facility] Address [address] [place] [address] Care Team Providers Name Role Phone Unavailable Primary Care Provider Unavailable Encounter Details Date Type Department Care Team Description 04/06/2019 Clinical Communication Division of Hematology [place], in [facility] dominik Araujo [address] [facility] [address] [place] [phone] Social History Tobacco Use Types Packs/Day Years [...] 06/26/2021 relatives? How often do you attend voodoo or denominational services? Patien t refused 06/26/2021 Do you belong to any clubs or organizations such as Patient refused 06/26/2021 voodoo groups, unions, fraternal or athletic groups, or [...]
--- OUTSIDE RECORDS SUMMARY | 2022-07-27 09:26 | XMS_ITS | Encounter Summary ---
:1960 Author Organization [facility] Address [address] [place] [address] Care Team Providers Name Role Phone Anabella Chow APRN C.N.P., D.N.P. Primary Care Provider Encounter Details Date Type Department Care Team Description 06/12/2021 Clinical Support Department of Leora Alatorre, [facility] in [facility] RDN, CDE Type [address] [place], [place] [address] [facility] Complication (HCC) [address] [place] [id number] Social History Tobacco Use Types Packs/Day [...] 06/26/2021 relatives? How often do you attend alevism or taoism services? Patien t refused 06/26/2021 Do you belong to any clubs or organizations such as Patient refused 06/26/2021 alevism groups, unions, fraternal or athletic groups, or [...] place to sleep or slept in a usp (including now)? Education Answer Date Recorded What is the highest level of school Associate degree: milan [employer], 04/02/2019 you have completed or the highest technical, or vocational p rogram degree you have received? Sex Assigned at Date Recorded Not on file documented as of this encounter Progress Notes Leora Alatorre, BETH, CDE - 06/12/2021 10:30 AM CDT REFERRED By:Anabella Chow APRN, C.N.P., D.N.P. SUBJECTIVE: Angeles is a 60 y.o.female presents today for diabetes and nutrition education. Accompanied by self Patient is being treated with Lantus 42 units at night, Novolog 7 units tid, Glucotrol 10 mg bid, Januvia 50 mg daily Patient glucose self-monitoring as follows: 1x/day Patient states: 1-she's had diabetes 7 years 2-6 years ago Metformin was stopped and background insulin was started due to renal issues 3-she is interested in a personal CGM LAB RESULTS: Lab Results Component Value Date HGBA1C 9.3 (H) 05/26/2021 HGBA1C 7.3 (A) 02/09/2019 HGBA1C 7.3 (H) 12/10/2015 Lab Results Component Value Date NA 138 05/26/2021 CL 100 05/26/2021 CREATININE 1.68 (H) 05/26/2021 BUN 24 (H) 05/26/2021 ANIONGAP 10 05/26/2021 GLUCOSE 228 (H) 05/26/2021 CALCIUM 9.6 05/26/2021 Lab Results Component Value Date CHOL 131 05/26/2021 CHOL 205 (H) 12/10/2015 Lab Results Component Value Date HDL 39 (L) 05/26/2021 HDL 41 (L) 12/10/2015 Lab Results Component Value Date LDLCALC 60 05/26/2021 LDLCALC 118 12/10/2015 Lab Results Component Value Date TRIG 159 (H) 05/26/2021 TRIG 230 (H) 12/10/2015 Ht Readings from Last 1 Encounters: 05/26/21 162.7 cm Wt Readings from Last 1 Encounters: 05/26/21 100 kg BMI Readings from Last 1 Encounters: 05/26/21 37.85 kg/m?? BP Readings from Last 3 Encounters: 05/26/21 130/74 03/06/20 132/72 04/05/19 159/83 EXERCISE: trying to walk 30 minutes/day NUTRITION: Breakfast: 7:30am: 2 eggs, berries or protein pancake/butter/sugar free syrup or oatmeal, water Lunch: salad/chicken breast strips, water Snack: 5 crackers/cheese, almonds Supper: protein - steak, salmon, pork, ground beef; cabbage type salad or vegie from garden, water Snack: if has snack it's popcorn Drinks water and one diet, caffeine free pop/day ASSESSMENT: 1. Diabetes Mellitus Type 2 Without Complication (HCC) Uncontrolled diabetes. Patient is eating very nutritious foods. Set dose of rapid acting insulin likely not covering variable content of food. Difficult to make recommendations without BG numbers. Patient is motivated and personal CGM would be very helpful for better BG control. PLAN: Explained the basic pathophysiology of diabetes, complications and management. Discussed action of insulins, difference between set doses of rapid acting insulin, using insulin tocarb ration, sliding scale/correction factor insulin. Provided and discussed: My Food Plan. Goals: Continue with current regimen. Will monitor carb content of meals. Exercise: walk 30 minutes daily SMBG 3-4x/day a day until she gets CGM Rx for Dexcom G6 CGM pended to provider. FOLLOW-UP: Patient will call once she gets her CGM. Patient will call with any questions or concerns. Time spent with patient at today's visit was 55 minutes. documented in this encounter Plan of Treatment Not on filedocumented as of this encounter Visit Diagnoses Diagnosis Diabetes Mellitus Type 2 Without Complic ation (HCC) documented in this encounter Additional Health Concerns Assessment Noted Time PHQ-9 Depression Total Score: 1 05/26/2021 11:46 AM CD T documented as of this encounter Care Teams Housing Inspectors Relationship Specialty Start Date End Date Anabella Chow APRN, C.N.P., PCP - General Internal Medicine 04/1105/10/22 D.N.P. [address] [place] [phone] documented as of this encounter
--- OUTSIDE RECORDS SUMMARY | 2022-07-27 09:26 | XMS_ITS | Encounter Summary ---
:1960 Author Organization [facility] Address [address] [place] [address] Care Team Providers Name Role Phone Anabella Chow APRN C.N.PSukhi, D.N.P. Primary Care Provider Reason for Visit Reason Comments Diabetes Rx for CGM Encounter Details Date Type Department Care Team Description 06/12/2021 Clinical Communication Department of Anabella Chow (Rx for Internal Medicine TYRONE Harrison, CGM) in [place], C.N.PSukhi, D.N.P. [address] [phone] Social History Tobacco Use [...] How often do you attend jew or jain services? Patien t refused 06/26/2021 Do you [...] Miscellaneous Notes Telephone Encounter - Anabella Chow APRN C.N.PSukhi, D.N.P. - 06/12/2021 11:53 AM CDT Order signed, thanks for your help! Telephone Encounter - Leora Alatorre RDN, CDE - 06/12/2021 11:19 AM CDT Patient would like Dexcom G6 CGM. I pended up order. Please sign if okay. Thanks! Leora documented in this encounter Plan of Treatment Not on filedocumented as of this encounter Visit Diagnoses Diagnosis Diabetes Mellitus Type 2 Without Complic ation (HCC) - Primary documented in this encounter Additional Health Concerns Assessment Noted Time PHQ-9 Depression Total Score: 1 05/26/2021 11:46 AM CD T documented as of this encounter Care Teams Salesperson Men'S Hats Relationship Specialty Start Date End Date Anabella Chow APRN, C.N.P., PCP - General Internal Medicine 04/1105/10/22 D.N.P. [address] [place] [phone] documented as of this encounter
--- OUTSIDE RECORDS SUMMARY | 2022-07-27 09:26 | XMS_ITS | Encounter Summary ---
:1960 Author Organization [facility] Address [address] [place] [address] Care Team Providers Name Role Phone Anabella Chow APRN, C.N.PSukhi, D.N.P. Primary Care Provider Reason for Referral Physical Therapy (Routine) - Closed Specialty Diagnoses / Procedures Referred By Contact Refer red To Contact Diagnoses Pain Hip Left Anabella Chow APRN, [facility] Procedures PT Evaluate and treat C.N.P., D.N.P. [address] [place] [phone] Referral ID Status Reason Start Date Expiration Date Visits Requ ested Visits Authorized [id number] Closed 05/26/2021 10/10/2021 1 1 utpatient (Routine) - Closed Specialty Diagnoses / Procedures Referred By Contact Refer red To Contact Community Internal Diagnoses Atypical Squamous Cell Uncertain Significance Personal History Anabella Chow [facility] Medicine TYRONE C.N.PSukhi, D.N.P. [address] [place] [address] Referral ID Status Reason Start Date Expiration Date Visits Requ ested Visits Authorized [id number] Closed 05/26/2021 05/26/2022 1 1 Specialty Diagnoses / Procedures Referred By Contact Refer chika To Contact Anabella Chow APRN, C.N.PSukhi, [facility] D.N.P. [address] [place] [phone] Referral ID Status Reason Start Date Expiration Date Visits Requ ested Visits Authorized utpatient (Routine) - Closed Specialty Diagnoses / Procedures Referred By Contact Refer chika To Contact Diagnoses Screening Mammogram Average Risk Patient Anabella Chow APRN, [facility] Procedures BI Breast Screening Bilateral with Tomosynthesis C.N.P., D.N.P. [address] [place] [phone] Referral ID Status Reason Start Date Expiration Date Visits Requ ested Visits Authorized [id number] Closed 05/26/2021 05/26/2022 1 1 Reason for Visit Reason Comments Establish Care Appointment Request (Routine) - Closed Specialty Diagnoses / Procedures Referred By Contact Refer chika To Contact Community Internal Medicine Referral ID Status Reason Start Date Expiration Date Visits Requ ested Visits Authorized [id number] Closed 05/06/2021 05/06/2022 1 1 Encounter Details Date Type Department Care Team Description 05/26/2021 Comprehensive Visit Department of Anabella Chow Diabfreya john paul Mellitus Type 2 Without Complication (HCC) (Primary Dx); Internal Medicine TYRONE Harrison, Hypertensi on And Chronic Kidney Disease Stage 1 To 4; in [place] C.N.PSukhi, D.N.P. Chronic Kidney Disease Stage 4 Glomerula r Filtration Rate 15-29 (HCC); [address] Major Depressive Disorder Si ngle Episode Unspecified; [address] Hyperlipidemia; [place] Insomnia; [id number] Thrombocytopenia (HCC); [phone] Morbid Severe O besity Due To Excess Calories (HCC); (Work) Pain Hip Left; [phone] Screening Mammo gram Average Risk Patient; (Fax) Atypical Squamo us Cell Uncertain Significance Personal History Social History Tobacco Use Types Packs/Day Years [...] 06/26/2021 relatives? How often do you attend restoration or restorationist services? Patien t refused 06/26/2021 Do you belong to any clubs or organizations such as Patient refused 06/26/2021 restoration groups, unions, fraternal or athletic groups, or [...] place to sleep or slept in a care home (including now)? Education Answer Date Recorded What is the highest level of school Associate degree: milan brody, 04/02/2019 you have completed or the highest technical, or vocational p Rule.ram degree you have received? Sex Assigned at Date Recorded Not on file documented as of this encounter Last Filed Vital Signs Vital Sign Reading Time Taken Comments Blood Pressure 130/74 05/26/2021 10:47 AM CDT Pulse 60 05/26/2021 10:44 AM CDT Temperature 36.7 ??C (98.1 ??F) 05/26/2021 10:44 AM CDT Respiratory Rate - - Oxygen Saturation - - Inhaled Oxygen Concentration - - Weight 100 kg (220 lb 14.4 oz) 05/26/2021 10:44 AM CDT Height 162.7 cm (5' 4.06) 05/26/2021 10:44 AM CDT Body Mass Index 37.85 05/26/2021 10:44 AM CDT documented in this encounter Progress Notes Anabella Chow APRN, C.N.P., D.N.P. - 05/26/2021 10:30 AM CDT SUBJECTIVE CHIEF COMPLAINT/REASON FOR VISIT Establish Care. HISTORY OF PRESENT ILLNESS Angeles is a very pleasant 60 y.o. female who presents for evaluation of Establish Care. Angeles is here today to establish care with a new primary care provider. she previously received [facility]. Acute concerns: Left hip pain: Going on for about a month. Worse at the end of the day after being up and walking. Put some topical pain reliever on it which helped. Has not tried any tylenol. No history of hip problems. Sitting for a long time makes it worse. Had sciatic issues in the past on this side. Pain is on the lateral hip over the trochanter. Has a back injection last year which really helped. Chronic conditions: Diabetes: Diagnosed 7 years ago. Has never had great blood sugar control Lab Results Component Value Date/Time HGBA1C 9.3 (H) 05/26/2021 11:42 AM HGBA1C 7.3 (A) 02/09/2019 08:56 AM HGBA1C 7.3 (H) 12/10/2015 10:45 AM Sugar monitoring frequency: Every AM. Average blood sugar readings: Around 200 Highest blood sugar: 220 Lowest blood sugar: 150 Symptoms Vision changes - Some changes at last exam in July Chest pain - None New weakness/fatigue - none Weight changes - Stable over the last few years Paresthesia/neuropathy - None Urinary changes - None Episodes of hypoglycemia - None Foot exam - Due Eye exam - Done in July Aspirin - History of thrombocytopenia FRANK/ARB- None due to renal function Cholesterol - Statin - Lipitor LDL - Diet/exercise: Saw a tobacco prevention health educator when first diagnosed. Did a virtual visit with a nutritionistlast March. Talked mostly about diet. Eggs and protein pancakes in the morning. Salad with chicken for lunch. Salad and protein for dinner. Avoiding carbs. Snacking some but not a lot between meals. Walk 6000 steps daily Treatment adherence and tolerance: Oral medications: Januvia, Glipizide. In 2014 had RAYMUNDO due to NSAIDs. and was taken off of metformin,Kidneys did not rebound completely. Now in stage 4 renal disease Non insulin injectables: Has not tried yet. Was suggested to try Victoza but was thought to be too risky due to renal function Insulin: Lantus 42 units daily, Novolog 7 before lunch and dinner. In February increased Lantus by 2 units and increased Novolog by 2 units each meal. Hypertension Patient has a history of hypertension which we reviewed today. Currently being treated with medication and lifestyle management. Blood pressure today: BP 130/74 (BP Location: Left arm, Patient Position: Sitting) Home blood pressures: Medication adherence: metoprolol Norvasc (cough with lisinopril) Side effects to medications: Symptoms (Chest pain, Headaches, Shortness of breath, Peripheral edema, Dizziness): Hypotension: Renal function: CKD 3-4. Saw nephrology about a year ago without any changes. Hyperlipidemia: On Lipitor Depression/Anxiety: Not needing Ativan, used after tordol. Used last year when she was having back problems. Mood is stable not Insomnia: Using trazodone for sleep. Takes 100mg nightly and is tolerating well. Thrombocytopenia: Since 2015. Stable. Stopped ASA. Hem consult 2018, thought may be drug related dueto glipizide or possible ITP. No increased bleeding or bruising. Health maintenance needs: Mammogram: Done February 2020 Pap: ASCUS with negative HPV in June of 2020 Colon cancer screening: Done in 2015 with recommended 10 year follow up SOCIAL HISTORY Denies tobacco use. No concern [...] supplies (INPEN, FOR NOVOLOG,) injector pen ??? glipiZIDE (GLUCOTROL) 10 mg tablet Take [...] (50 mg total) by mouth daily. ??? amLODIPine (NORVASC) 5 mg tablet Take 1 tablet (5 mg total) by mouth daily. ??? atorvastatin (LIPITOR) 10 mg tablet Take 1 tablet (10 mg total) by mouth daily. ??? chlorthalidone (HYGROTON) 25 mg tablet Take 1 tablet (25 mg total) by mouth daily. ??? traZODone (DESYREL) 100 mg tablet Take 1 tablet (100 mg total) by mouth at bedtime. ALLERGIES/CONTRAINDICATIONS Allergies Allergen Reactions ??? Adhesive Tape-Silicones [...] performed and negative. OBJECTIVE VITAL SIGNS BP 130/74 (BP Location: Left arm, Patient Position: Sitting) Pulse 60 Temp 36.7 ??C Ht 162.7 cm Wt 100 kg BMI 37.85 kg/m?? PHYSICAL EXAMINATION Constitutional General: She is not in acute distress. Appearance: She is well-developed. She is not diaphoretic. HENT Head: Normocephalic and atraumatic. Eyes Pupils: Pupils are equal, round, and reactive to light. Cardiovascular Rate and Rhythm: Normal rate and regular rhythm. Heart sounds: Normal heart sounds. No murmur heard. No friction rub. No gallop. Pulmonary Effort: Pulmonary effort is normal. No respiratory distress. Breath sounds: Normal breath sounds. No wheezing or rales. Musculoskeletal General: Normal range of motion. Cervical back: Normal range of motion. Skin General: Skin is warm and dry. Neurological Mental Status: She is alert and oriented to person, place, and time. Psychiatric Behavior: Behavior normal. ASSESSMENT / PLAN #1 Diabetes Mellitus Type 2 Without Complication ([facility]) Assessment & Plan: Unfortunately A1c has risen to 9.3. Recommended we increase her NovoLog to 3 times daily 7 units. She has only been checking her blood sugars once daily and I think she would very much benefit from continues glucose monitoring so we can get a better idea of how her blood sugars are running throughout the day. I have put in a referral for her to meet with our tobacco prevention health educator did talk about ways to lower her blood sugar and also to talk about the possibility of starting continuous glucose monitoring. She had concerns today that her blood sugars continue to be high despite adjustments to her insulinand is wondering if it is possible she has type 1 diabetes. C-peptide ordered today. Will plan on rec hecking A1c in 3 months. Orders: - Hemoglobin A1c - Albumin, Random, Urine - C-Peptide - Nutrition - informatics educator visit (clinic); Future; Expected date: 05/26/2021 - insulin aspart U-100 (NovoLOG FlexPen) 100 unit/mL (3 mL) injection; Inject 7 Units under the skin3 (three) times a day with meals., Starting 05/26/2021, Normal - [facility] Internal Medicine office visit (clinic); Future; Expected date: 08/26/2021 - Hemoglobin A1c; Future; Expected date: 08/26/2021 - Basic Metabolic Panel; Future; Expected date: 08/26/2021 #2 Hypertension And Chronic Kidney Disease Stage 1 To 4 Assessment & Plan: Stable. Tolerating treatment well without significant side effects. Denies any symptoms associated with hypertension. Denies any recent chest pain, palpitations, lightheadedness, changes in exercise tolerance or energy levels from baseline. Denies hypotension. Continue current medications, diet, and e xercise to control blood pressure. Not on Frank or Arb due to CKD stage 4 Orders: - Basic Metabolic Panel #3 Chronic Kidney Disease Stage 4 Glomerular Filtration Rate 15-29 (HCC) Assessment & Plan: Renal function is stable if not a bit improved from when last checked. Recommended we continue to monitor closely and avoid any medications that may be nephrotoxic. Not currently following with Nephrology but we could consider referral in the future if kidney function is getting any worse. Recommendedshe work on remaining well hydrated. #4 Major Depressive Disorder Single Episode Unspecified Assessment & Plan: Reports depression has resolved and mood is currently stable. Not currently on anything specificallyfor her depression. Does not feel she needs any medication for this at this time. #5 Hyperlipidemia Assessment & Plan: Stable. Currently on Lipitor for hyperlipidemia management and tolerating well without any side effects. Lipid panel up to date. Continue to monitor Orders: - Lipid Panel #6 Insomnia Assessment & Plan: Stable on 100 mg of trazodone nightly. Orders: - traZODone (DESYREL) 100 mg tablet; Take 1 tablet (100 mg total) by mouth at bedtime., Starting Wed05/26/2021, Normal #7 Thrombocytopenia (HCC) Assessment & Plan: Persistent mild thrombocytopenia for which she saw Hematology in the past. They did not feel that a bone marrow biopsy was necessary at that time and thought it may be medication induced due to glipizide. Her platelets are bit lower than they were a year ago but overall still mild. Denies any symptomsassociated with this. We will continue to monitor and if we notice a trend downward could consider discontinuing the glipizide or referring back to Hematology for further evaluation. Orders: - CBC with Differential, Blood #8 Morbid Severe Obesity Due To Excess Calories (HCC) Assessment & Plan: BMI today is Body mass index is 37.85 kg/m??.. We discussed the benefits of working toward and maintaining a healthy weight. Chronic comorbidities associated with current weight include diabetes and hypertension. Reviewed management of these today. Encouraged lifestyle management and reviewed ways to improve nutrition. Encouraged at least 150 minutes of moderate physical activity per week. Discussed personal barriers to weight loss. Offered a referral to our brick handler to review changes that could bemade to improve diet. she will let us know if there are any ways we can further support her in meeting her weight loss goals. #9 Pain Hip Left Assessment & Plan: Lateral left hip pain with tenderness over the trochanteric bursa. I suspect trochanteric bursitis. X-ray obtained today x-ray obtained today and showed some degenerative changes and calcification of the tendon.. Recommended we try physical therapy to see if this improves her pain. If not could consider a referral to Orthopedics to discuss whether not she would benefit from injection or other therapy. Orders: - PT Evaluate and treat; Future; Expected date: 05/26/2021 - DX Hip And Pelvis Left 2-3 Views; Future; Expected date: 05/26/2021 #10 Screening Mammogram Average Risk Patient Comments: Screening mammogram ordered today Orders: - BI Breast Screening Bilateral with Tomosynthesis; Future; Expected date: 05/26/2021 #11 Atypical Squamous Cell Uncertain Significance Personal History Comments: She will be due for repeat Pap smear after June. Orders: - [facility] office visit (clinic); Future; Expected date: 06/26/2021 Other orders - glipiZIDE (GLUCOTROL) 10 mg tablet; Take 1 tablet (10 mg total) by mouth 2 (two) times a day before breakfast and dinner., Starting Wed05/26/2021, Normal - SITagliptin (JANUVIA) 50 mg tablet; Take 1 tablet (50 mg total) by mouth daily., Starting Wed05/26/2021, Normal - amLODIPine (NORVASC) 5 mg tablet; Take 1 tablet (5 mg total) by mouth daily., Starting Wed05/26/2021, Normal - atorvastatin (LIPITOR) 10 mg tablet; Take 1 tablet (10 mg total) by mouth daily., Starting Wed05/26/2021, Normal - chlorthalidone (HYGROTON) 25 mg tablet; Take 1 tablet (25 mg total) by mouth daily., Starting Wed05/26/2021, Normal - metoprolol succinate (TOPROL-XL) 25 mg 24 hr tablet; Take 1 tablet (25 mg total) by mouth daily., Starting Wed05/26/2021, Normal - insulin glargine (Lantus Solostar U-100 Insulin) 100 unit/mL (3 mL) injection; Inject 42 Units under the skin as directed., Starting Wed05/26/2021, Normal - metoprolol succinate (TOPROL-XL) 50 mg 24 hr tablet; Take 1 tablet (50 mg total) by mouth daily., Starting Wed05/26/2021, Normal Recommended Angeles follow up in 3 months for diabetes recheck. Follow up sooner for any new or worsening symptoms. Angeles verbalized understanding of the plan of care and was in agreement. All questions were answered today. Total time spent on visit: 45 minutes documented in this encounter Miscellaneous Notes Result Encounter Note - Anabella Chow APRN, C.NJeff, Nina.N.P. - 05/26/2021 2:37 PM CDT Portal message sent with results. Your A1c has unfortunately gone up to 9.3. I recommend we add the morning dose of novolog as we discussed and have you follow up with Leora to talk about continuous glucose monitoring. The rest of yourlabs look good. Your urine test was normal. Your kidney function is a bit better than it was a year ago in the stage 3 kidney disease range. Your cholesterol is well controlled and your blood counts are stable. Your hip x ray showed arthritis in both of your hips. You had some calcification over the tendon over the part of your hip that is causing you pain. I recommend we try the physical therapy, but if you are still having pain we can get you in to orthopedics to talk about other options for treatment including possibly injections. Please let me know if there are any questions or concerns. Thank you Anabella Chow APRN, C.N.PSukhi, Nina.N.P. Assessment & Plan Note - Anabella Chow APRN C.N.PSukhi, D.N.P. - 05/26/2021 12:54 PM CDTAssociated Problem(s): Pain Hip Left Lateral left hip pain with tenderness over the trochanteric bursa. I suspect trochanteric bursitis. X-ray obtained today x-ray obtained today and showed some degenerative changes and calcification of the tendon.. Recommended we try physical therapy to see if this improves her pain. If not could consider a referral to Orthopedics to discuss whether not she would benefit from injection or other therapy. Assessment & Plan Note - Anabella Chow APRN C.N.P., D.N.P. - 05/26/2021 12:53 PM CDTAssociated Problem(s): Thrombocytopenia (HCC) Persistent mild thrombocytopenia for which she saw Hematology in the past. They did not feel that a bone marrow biopsy was necessary at that time and thought it may be medication induced due to glipizide. Her platelets are bit lower than they were a year ago but overall still mild. Denies any symptomsassociated with this. We will continue to monitor and if we notice a trend downward could consider discontinuing the glipizide or referring back to Hematology for further evaluation. Assessment & Plan Note - Anabella Chow APRN, C.N.P., D.N.P. - 05/26/2021 12:52 PM CDTAssociated Problem(s): Morbid Severe Obesity Due To Excess Calories (HCC) BMI today is Body mass index is 37.85 kg/m??.. We discussed the benefits of working toward and maintaining a healthy weight. Chronic comorbidities associated with current weight include diabetes and hypertension. Reviewed management of these today. Encouraged lifestyle management and reviewed ways to improve nutrition. Encouraged at least 150 minutes of moderate physical activity per week. Discussed personal barriers to weight loss. Offered a referral to our brick handler to review changes that could bemade to improve diet. she will let us know if there are any ways we can further support her in meeting her weight loss goals. Assessment & Plan Note - Anabella Chow APRN, C.N.P., D.N.P. - 05/26/2021 12:52 PM CDTAssociated Problem(s): Major Depressive Disorder Single Episode Unspecified Reports depression has resolved and mood is currently stable. Not currently on anything specificallyfor her depression. Does not feel she needs any medication for this at this time. Assessment & Plan Note - Anabella Chow APRN C.N.P., D.N.P. - 05/26/2021 12:52 PM CDTAssociated Problem(s): Insomnia Stable on 100 mg of trazodone nightly. Assessment & Plan Note - Anabella Chow APRN C.N.P., D.N.P. - 05/26/2021 12:52 PM CDTAssociated Problem(s): Hyperlipidemia Stable. Currently on Lipitor for hyperlipidemia management and tolerating well without any side effects. Lipid panel up to date. Continue to monitor Assessment & Plan Note - Anabella Chow APRN C.N.P., D.N.P. - 05/26/2021 12:51 PM CDTAssociated Problem(s): Chronic Kidney Disease Stage 4 Glomerular Filtration Rate 15-29 (HCC) Renal function is stable if not a bit improved from when last checked. Recommended we continue to monitor closely and avoid any medications that may be nephrotoxic. Not currently following with Nephrology but we could consider referral in the future if kidney function is getting any worse. Recommendedshe work on remaining well hydrated. Assessment & Plan Note - Anabella Chow APRN, C.N.P., D.N.P. - 05/26/2021 12:50 PM CDTAssociated Problem(s): Hypertensive Chronic Kidney Disease (CKD) Stage 3b Glomerular Filtration Rate(GFR) 30 To 44 (HCC) Stable. Tolerating treatment well without significant side effects. Denies any symptoms associated with hypertension. Denies any recent chest pain, palpitations, lightheadedness, changes in exercise tolerance or energy levels from baseline. Denies hypotension. Continue current medications, diet, and e xercise to control blood pressure. Not on Frank or Arb due to CKD stage 4 Assessment & Plan Note - Anabella Chow APRN, C.N.P., D.N.P. - 05/26/2021 12:49 PM CDTAssociated Problem(s): Diabetes Mellitus Type 2 Without Complication (HCC) Unfortunately A1c has risen to 9.3. Recommended we increase her NovoLog to 3 times daily 7 units. She has only been checking her blood sugars once daily and I think she would very much benefit from continues glucose monitoring so we can get a better idea of how her blood sugars are running throughout the day. I have put in a referral for her to meet with our tobacco prevention health educator did talk about ways to lower her blood sugar and also to talk about the possibility of starting continuous glucose monitoring. She had concerns today that her blood sugars continue to be high despite adjustments to her insulinand is wondering if it is possible she has type 1 diabetes. C-peptide ordered today. Will plan on rec hecking A1c in 3 months. documented in this encounter Plan of Treatment Scheduled Referrals Name Type Priority Associated Diagnoses Order S chedule Nutrition - Outpatient Referral Routine Diabetes Mellitus Exp ected: informatics educator Type 2 Without 05/26/20 21 visit (clinic) Complication (HCC) (Approx imate), Expires: 05/26/2022 Community Internal Outpatient Referral Routine Atypical Squamo us Expected: Medicine office Cell Uncertain 06/26/2021 visit (clinic) Significance Personal (Mary Kate roximate), History Expires: 05/26/2024 documented as of this encounter Procedures Procedure Name Priority Date/Time Associated Diagnosis Comme nts ALBUMIN, RANDOM, U Routine 05/26/2021 12:00 Diabetes Mellitus Type 2 Results for this PM CDT Without Complication procedu re are in ([facility]) the results section. C-PEPTIDE, S Routine 05/26/2021 11:43 Diabetes Mellitus Type 2 Results for this AM CDT Without Complication procedu re are in ([facility]) the results section. LIPID PANEL, S Routine 05/26/2021 11:42 Hyperlipidemia Results for this AM CDT procedure are i n the results section. CBC WITH Routine 05/26/2021 11:42 Thrombocytopenia ([facility]) R esults for this DIFFERENTIAL, B AM CDT procedure ar e in the results section. HEMOGLOBIN A1C, B Routine 05/26/2021 11:42 Diabetes Mellitus T ype 2 Results for this AM CDT Without Complication procedu re are in (HCC) the results section. 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 documented in this encounter Results BI Breast Screening Bilateral with Tomosynthesis (05/27/2021 8:13 AM CDT) Anatomical Region Laterality Modality Breast, Breast Imaging RST LOS, Breast Imaging ARZ LOS, [place] st Bilateral Mammography Imaging FLA LOS Specimen (Source) Anatomical Collection Method Collection Time Re ceived Time Location / / Volume Laterality 05/27/2021 10:12 AM CDT Impressions 05/27/2021 10:15 AM CDT Negative. RECOMMENDATION: ??Annual Screening Mammo gram ASSESSMENT: ??BI-RADS: 1: Negative. Narrative 05/27/2021 10:15 AM CDT EXAM: ??BI BREAST SCREENING BILATERAL WITH TOMOSYNTHESIS Current study was evaluated with a [employer]ir Healthcareu ter Aided Detection (CAD) system. INDICATION: ??Screening [...] Chow APRN, C.N.P., D.N.P. IMG BI PROCEDURES DX Hip And Pelvis Left 2-3 Views (05/26/2021 12:24 PM CDT) Anatomical Region Laterality Modality Lower Extremity, Pelvis, Hip, Musculoskeletal RST LOS, Left Digital Radiography Musculoskeletal ARZ LOS, Muskuloskeletal FLA LOS Specimen (Source) Anatomical Collection Method Collection Time Re ceived Time Location / / Volume Laterality 05/26/2021 12:52 PM CDT Impressions 05/26/2021 12:53 PM CDT Degenerative changes both greater trochanters. Focus of calcific tendinitis adjacent to left greater troc hanter. Left hip is otherwise negative. There may be additional subtle foci of c alcific tendinitis adjacent to right greater trochanter. 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 Narrative 05/26/2021 12:53 PM CDT EXAM: ??DX HIP AND PELVIS LEFT 2-3 VIEWS Procedure Note Aleja Quinn M.D. - 05/26/2021Format ting of this note might be different from the original. EXAM: DX HIP AND PELVIS LEFT 2-3 VIEWS IMPRESSION: Degenerative changes both greater trocha nters. Focus of calcific tendinitis adjacent to left greater troc hanter. Left hip is otherwise negative. There may be additional subtle foci of c alcific tendinitis adjacent to right greater trochanter. 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 nAabella Chow APRN, C.N.P., D.N.P. IMG DIAGNOSTIC IM AGING PROCEDURES Albumin, Random, Urine (05/26/2021 12:00 PM CDT) athologist Signature Microalbumin 14.3 mg/L 05/26/2021 [facility] 12:45 PM CDT Creatinine 162 mg/dL 05/26/2021 [facility] 12:44 PM CDT Albumin/Creatinin 9 <25 mg/g 05/26/2021 [facility] e Ratio 12:45 PM CDT Specimen Anatomical Collection Method Collection Time Receive d Time (Source) Location / / Volume Laterality Urine (Urine, 05/26/2021 12:00 05/26/2021 Clean Catch) PM CDT 12:00 PM CDT Sonia Prasad APRN.Anna, D.N.P. LAB URINE ORDERAB LES Performing Organization Address City/[facility]/ZIP Code Phon e Number [facility]- [address] [place] [address] [address] [place] [address] System in [address] (ABNORMAL) C-Peptide (05/26/2021 11:43 AM CDT) athologist Signature C-Peptide, S 4.6 (H) 1.1 - 4.4 05/26/2021 [facility] ng/mL 8:34 PM CDT Specimen Anatomical Collection Method Collection Time Receive d Time (Source) Location / / Volume Laterality Blood (Blood, 05/26/2021 11:43 05/26/2021 8:01 Venous) AM CDT PM CDT Blair Prasad APRNN.PSukhi, D.N.P. LAB BLOOD ADD-ON Performing Organization Address City/[facility]/ZIP Code Phon e Number [facility] [address] [place], [place] [address] [place] [address] CENTER [facility] [place] [address] Laboratory Medicine and Pathology [address] [place] (ABNORMAL) CBC with Differential, Blood (05/26/2021 11:42 AM CDT) [facility] Method Time Signature Hemoglobin 15.0 11.6 - 05/26/2021 [facility] 15.0 g/dL 12:00 PM CDT Hematocrit 44.8 35.5 - 05/26/2021 [facility] 44.9 % 12:00 PM CDT Erythrocytes 5.21 (H) 3.92 - 05/26/2021 [facility] 5.13 12:00 PM CDT x10(12)/L MCV 86.0 78.2 - 05/26/2021 [facility] 97.9 fL 12:00 PM CDT RBC Distrib Width 12.1 (L) 12.2 - 05/26/2021 [facility] 16.1 % 12:00 PM CDT Platelet Count 117 (L) 157 - 371 05/26/2021 [facility] x10(9)/L 12:00 PM CDT Leukocytes 8.4 3.4 - 9.6 05/26/2021 [facility] x10(9)/L 12:00 PM CDT Neutrophils 6.35 1.56 - 05/26/2021 [facility] 6.45 12:00 PM CDT x10(9)/L Lymphocytes 1.32 0.95 - 05/26/2021 [facility] 3.07 12:00 PM CDT x10(9)/L Monocytes 0.54 0.26 - 05/26/2021 [facility] 0.81 12:00 PM CDT x10(9)/L Eosinophils 0.16 0.03 - 05/26/2021 [facility] 0.48 12:00 PM CDT x10(9)/L Basophils 0.05 0.01 - 05/26/2021 [facility] 0.08 12:00 PM CDT x10(9)/L Specimen Anatomical Collection Method Collection Time Receive d Time (Source) Location / / Volume Laterality Blood (Blood, 05/26/2021 11:42 05/26/2021 Venous) AM CDT 11:44 AM CDT Anabella Chow APRN, C.N.P., D.N.P. LAB BLOOD ADD-ON Performing Organization Address City/State/ZIP Code Phon e Number [facility]- [place], [place] [address] [address] [place] [address] System in [place] Tammie Barrios (ABNORMAL) Lipid Panel (05/26/2021 11:42 AM CDT) athologist Signature Cholesterol, 131 mg/dL 05/26/2021 [facility] Total 12:11 PM CDT Comment: ----REFERENCE VALUE---- Desirable: < 200 Borderline high: 200 - 239 High: > or = 240 Triglycerides 159 (H) mg/dL 05/26/2021 12:[address] [facility] Comment: ----REFERENCE VALUE---- Normal: <150 Borderline high: 150-199 High: 200-499 Very high: > or =500 Cholesterol, HDL 39 (L) >=50 mg/dL 05/26/2021 12:41 PM CD T [facility] Calculated LDL 60 mg/dL 05/26/2021 12:41 PM CDT [facility] Comment: ----REFERENCE VALUE---- Desirable: <100 mg/dL Above Desirable: 100-129 mg/dL Borderline High: 130-159 mg/dL High: 160-189 mg/dL Very High: >=190 mg/dL Cholesterol, Non-HDL, Calculated 92 mg/dL 021 12:41 PM CDT [facility] Comment: ----REFERENCE VALUE---- Desirable: <130 Above Desirable: 130-159 Borderline high: 160-189 High: 190-219 Very high: > or =220 Specimen Anatomical Collection Method Collection Time Receive d Time (Source) Location / / Volume Laterality Blood (Blood, 05/26/2021 11:42 05/26/2021 Venous) AM CDT 11:44 AM CDT Willard Prasad APRN.N.P., D.N.P. LAB BLOOD ADD-ON Performing Organization Address City/State/ZIP Code Phon e Number [facility]- [place], [place] [address] [address] [place] [address] System in [address] (ABNORMAL) Hemoglobin A1c (05/26/2021 11:42 AM CDT) P athologist Signature Hemoglobin A1c, 9.3 (H) 4.2 - 5.6 05/26/2021 [facility] B % 12:45 PM CDT Comment: Hemoglobin A1c values greater than or eq ual to 6.5 percent are diagnostic for diabetes mellitus. ?? Diagnosis should be confirmed by repeat testing. ??In diabet ic patients, HbA1c goals should be discussed with healthcar e provider. Specimen Anatomical Collection Method Collection Time Receive d Time (Source) Location / / Volume Laterality Blood (Blood, 05/26/2021 11:42 05/26/2021 Venous) AM CDT 11:44 AM CDT Anabella Chow APRN, C.N.P., D.N.P. LAB BLOOD ADD-ON Performing Organization Address City/State/ZIP Code Phon e Number [facility]- [address] [place] [address] [place] [address] System in [address] (ABNORMAL) Basic Metabolic Panel (05/26/2021 11:42 AM CDT) Analysis Performed At Patho logist Time Signature Potassium, P 4.1 3.6 - 5.2 05/26/2021 [facility] mmol/L 12:12 PM CDT Sodium, P 138 135 - 145 05/26/2021 [facility] mmol/L 12:12 PM CDT Chloride, P 100 98 - 107 05/26/2021 [facility] mmol/L 12:12 PM CDT Bicarbonate, P 28 22 - 29 05/26/2021 [facility] mmol/L 12:11 PM CDT Anion Gap, P 10 7 - 15 05/26/2021 [facility] 12:12 PM CDT BUN (Blood Urea 24 (H) 6 - 21 05/26/2021 [facility] Nitrogen), P mg/dL 12:11 PM CDT Creatinine 1.68 (H) 0.59 - 05/26/2021 [facility] 1.04 mg/dL 12:41 PM CDT eGFR-Black/Afri 38 (L) >=60 05/26/2021 [facility] can [place] mL/min/BSA 12:41 PM CDT Comment: ----ADDITIONAL INFORMATION---- Estimated GFR calculated using the 2009 CKD_EPI creatinine equation. eGFR Non-Black/ 33 (L) >=60 mL/min/BSA 05/26/2021 12:41 PM CDT [facility] [place] Comment: ----ADDITIONAL INFORMATION---- Estimated GFR calculated using the 2009 CKD_EPI creatinine equation. Calcium, Total, P 9.6 8.6 - 10.0 mg/dL 05/26/2021 12:1 1 PM CDT [facility] Glucose, P 228 (H) 70 - 140 mg/dL 05/26/2021 12:11 PM CDT [facility] Specimen Anatomical Collection Method Collection Time Receive d Time (Source) Location / / Volume Laterality Blood (Blood, 05/26/2021 11:42 05/26/2021 Venous) AM CDT 11:44 AM CDT Anabella Chow APRN, C.N.P., D.N.P. 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
--- OUTSIDE RECORDS SUMMARY | 2022-07-27 09:26 | XMS_ITS | Encounter Summary ---
:1960 Author Organization [facility] Address [address] [place] [address] Care Team Providers Name Role Phone Anabella Chow APRN C.N.PSukhi, D.N.P. Primary Care Provider Reason for Visit Physical Therapy (Routine) - Canceled Specialty Diagnoses / Procedures Referred By Contact Refer red To Contact Diagnoses Pain Hip Left Anabella Chow APRN, [facility] Procedures PT Ongoing treatment C.N.P., D.N.P. [address] [place] [address] Referral ID Status Reason Start Date Expiration Date Visits V isits Requested Authorized [id number] Canceled 06/04/2021 10/10/2021 99 99 Encounter Details Date Type Department Care Team Description 06/11/2021 Clinical Support Department of Anabella Chow APRN, C.N.P., D.N.P. [address] [place] [phone] Pain Hip Left Rehabilitation Services Niurka Serrano P.T., D.P.T. in [address] [phone] Social History Tobacco Use Types Packs/Day Years [...] How often do you attend voodoo or yarsani services? Patien t refused 06/26/2021 Do you [...] Progress Notes Niurka Serrano P.T., D.P.T. - 06/11/2021 4:30 PM CDT Physical Therapy Outpatient Treatment Note SUBJECTIVE Patient's Name: Angeles Morales Referring Provider: Anabella Chow APRN, * Visit Diagnosis: 1. Pain Hip Left Reason for Referral: PT eval and treat Payor: Mismi / Plan: Mismi OPEN ACCESS / Product Type: PPO / No data recorded Epic Visit Count: 2 Patient comments: Patient states that her left hip has been pain free for the past few days. She states that she is completing her HEP as instructed. Contact monitoring: PPE used during therapy: Therapist was wearing the following PPE throughout entire session: surgicalmask and eye protection Patient was wearing a mask during therapy session: yes Additional Staff Present During Session: No OBJECTIVE Pain: none Gait/Stairs: Gait Assessment/Training Distance (m): (100 feet) Surface: Even Device: No device Level of Assistance: Independent Quality/Pattern: Trendelenburg Stability: no LOB Assessment of Gait: decreased gait speed Hip strength (Left/Right): Flexion: 5/5 Extension: 5/5 Hamstrings: 4+/4+ Quads: 4+/4+ TREATMENT Treatment today consisted of: -Long axis distraction to left hip in supine Access Code: [email or web address] Exercises ?? Seated hamstring stretch - 1 x daily - 7 x weekly - 3 sets - 30 seconds hold ?? Supine Active Straight Leg Raise - 1 x daily - 7 x weekly - 3 sets - 10 reps ?? Supine Double Knee to Chest - 1 x daily - 7 x weekly - 3 sets - 30 seconds hold NOT ASSESSED TODAY: ?? Supine Bridge - 1 x daily - 7 x weekly - 3 sets - 10 reps ?? Clamshell - 1 x daily - 7 x weekly - 3 sets - 10 reps Home Exercise Program/Education: Updated HEP Pt reports good compliance with her HEP. Assessment Clinical Impression: Patient is progressing with hip strengthening exercises. She reports decreased pain with functional activities. She will continue to benefit from skilled PT [...] his HEP. PT Goal #4 Date: 07/30/21 PROGRESSING Plan Plan for next session: discharge? Time Spent with Patient Therapeutic Exercise (min): 25 min Time Calculation Total Timed Units (min): 25 min Total Treatment Time (min): 25 min Niurka Serrano P.T., D.P.T. Department of Rehabilitation Services in [address] [address] Dept: [phone] DISCHARGE SUMMARY DISCHARGE STATUS STATUS OF GOALS: goals partially met REASON FOR DISCHARGE: Pt did not return for therapy. DISCHARGE PLAN/RECOMMENDATIONS: It is recommended that Ms. Morales continue with therapeutic recommendations provided in the course of her care. If additional skilled care is indicated in the future, a new therapy order and evaluation would be required. documented in this encounter Plan of Treatment Not on filedocumented as of this encounter Visit Diagnoses Diagnosis Pain Hip Left documented in this encounter Additional Health Concerns Assessment Noted Time PHQ-9 Depression Total Score: 1 05/26/2021 11:46 AM CD T documented as of this encounter Care Teams Library Historian Relationship Specialty Start Date End Date Anabella Chow APRN, C.N.P., PCP - General Internal Medicine 04/1105/10/22 D.N.PSukhi [address] [place] [address] documented as of this encounter
--- OUTSIDE RECORDS SUMMARY | 2022-07-27 09:26 | XMS_ITS | Encounter Summary ---
:1960 Author Organization [facility] Address [address] [place] [address] Care Team Providers Name Role Phone Unavailable Primary Care Provider Unavailable Encounter Details Date Type Department Care Team Description 04/05/2019 Clinical Communication Division of Hematology Luis Hill, in [facility] dominik Araujo [address] [place] [address] [phone] Social History Tobacco Use Types Packs/Day Years [...] 06/26/2021 relatives? How often do you attend jainism or catholic services? Patien t refused 06/26/2021 Do you belong to any clubs or organizations such as Patient refused 06/26/2021 jainism groups, unions, fraternal or athletic groups, or [...] place to sleep or slept in a half-way (including now)? Education Answer Date Recorded What [...]
--- OUTSIDE RECORDS SUMMARY | 2022-07-27 09:26 | XMS_ITS | Encounter Summary ---
:1960 Author Organization [facility] Address [address] [place] [address] Care Team Providers Name Role Phone Elsewhere, Pcp Primary Care Provider Unavailable Encounter Details Date Type Department Care Team Description 10/02/2020 Orders Only [facility] Karmen Bird M.D. [place] [address] [address] [place], [place] [address] [phone] Social History Tobacco Use Types Packs/Day Years [...] How often do you attend confucianist or sikhism services? Patien t refused 06/26/2021 Do you [...] on filedocumented in this encounter Care Teams Rn Wellness Relationship Specialty Start Date End Date Elsewhere, Pcp PCP - General Internal Medicine 05/11/22 documented as of this encounter
--- OUTSIDE RECORDS SUMMARY | 2022-07-27 09:26 | XMS_ITS | Encounter Summary ---
:1960 Author Organization [facility] Address [address] [place] [address] Care Team Providers Name Role Phone Unavailable Primary Care Provider Unavailable Reason for Visit Reason Comments Triage Encounter Details Date Type Department Care Team Description 03/06/2020 Nurse Triage Department of [facility] Ramos Sigala R.N. Triage Medicine, [facility], in [address] [place], [place] [address] [place] [address] [place] [address] [phone] Social History Tobacco Use Types Packs/Day Years [...] 06/26/2021 relatives? How often do you attend rastafari or mosque services? Patien t refused 06/26/2021 Do you belong to any clubs or organizations such as Patient refused 06/26/2021 rastafari groups, unions, fraternal or athletic groups, or [...] place to sleep or slept in a snf (including now)? Education Answer Date Recorded What is the highest level of school Associate degree: mlian brody, 04/02/2019 you have completed or the highest technical, or vocational p rogram degree you have received? Sex Assigned at Date Recorded Not on file documented as of this encounter Miscellaneous Notes Telephone Encounter - Lillian Sigala R.N. - 03/06/2020 12:46 AM CDT COVID-19 Nurse Line Screening ASSESSMENT COVID 19 Screening Have you had close contact with a person who has a LABORATORY CONFIRMED case of COVID-19?: No - Continue screening. In the last 48 hours have you had any of the following symptoms?: New shortness of breath Do you have any urgent symptoms?: Having trouble breathing or is your breathing worsening documented in this encounter Plan of Treatment Not on filedocumented as of this encounter Visit Diagnoses Not on filedocumented in this encounter
--- OUTSIDE RECORDS SUMMARY | 2022-07-27 09:26 | XMS_ITS | Encounter Summary ---
:1960 Author Organization [facility] Address [address] [place] [address] Care Team Providers Name Role Phone Anabella Chow APRN C.N.P., D.N.P. Primary Care Provider Reason for Visit Reason Comments Diabetes Quality Care Review Encounter Details Date Type Department Care Team Description 05/16/2021 Clinical Communication Department of Anabella Chow (Quality Internal Medicine TYRONE Harrison, Care Revie w) in [place], C.N.P., D.N.P. [address] [phone] Social History Tobacco Use [...] How often do you attend latter-day or oriental orthodox services? Patien t refused [...] Telephone Encounter - Emily Mcclure R.N. - 05/16/2021 3:01 PM CDT In reviewing the patient's diabetic quality metrics, I have found that the patient is not meeting all of their goals. Patient has appointment on 05/26/21 to establish care with Anabella Chow DNP. Lab Results Component Value Date HGBA1C 7.3 (H) 12/10/2015 Lab Results Component Value Date HGBA1C 7.3 (A) 02/09/2019 Lab Results Component Value Date LDLCALC 118 12/10/2015 BP Readings from Last 3 Encounters: 03/06/20 132/72 04/05/19 159/83 04/03/16 114/60 Social History Tobacco Use Smoking Status Never Smoker documented in this encounter Plan of Treatment Not on filedocumented as of this encounter Procedures Procedure Name Priority Date/Time Associated Diagnosis Comme nts HEMOGLOBIN A1C, B Routine 02/09/2019 8:56 AM Resu lts for this CDT procedure are i n the results section. HEMOGLOBIN A1C, B Routine 02/09/2019 8:56 AM CDT documented in this encounter Results (ABNORMAL) Hemoglobin A1c (02/09/2019 8:56 AM CDT) P athologist Signature EXT Hemoglobin 7.3 (A) 4.0 - 5.6 A1c, B Specimen (Source) Anatomical Collection Method Collection Time Re ceived Time Location / / Volume Laterality Blood (Blood, 02/09/2019 8:56 AM Venous) CDT Historical Provider LAB BLOOD ADD-ON Hemoglobin A1c (02/09/2019 8:56 AM CDT) Specimen (Source) Anatomical Collection Method Collection Time Re ceived Time Location / / Volume Laterality Blood (Blood, 02/09/2019 8:56 AM Venous) CDT Historical Provider LAB BLOOD ADD-ON documented in this encounter Visit Diagnoses Not on filedocumented in this encounter Care Teams Business Intelligence Developer Relationship Specialty Start Date End Date Anabella Chow APRN, C.N.P., PCP - General Internal Medicine 04/1105/10/22 James [address] [place] [address] documented as of this encounter
--- OUTSIDE RECORDS SUMMARY | 2022-07-27 09:26 | XMS_ITS | Encounter Summary ---
:1960 Author Organization [facility] Address [address] [place] [address] Care Team Providers Name Role Phone Unavailable Primary Care Provider Unavailable Reason for Visit Reason Comments Shortness of Breath Anxiety Encounter Details Date Type Department Care Team Description 03/06/2020 Emergency [facility], [place] ty (Primary Dx); Department C.N.P. Shortness Of Breath; [address] [place] [address] [place] [address] Other Chest Pain; [place], [place] [phone] Social History Tobacco Use Types Packs/Day Years [...] 06/26/2021 relatives? How often do you attend worship or samaritan services? Patien t refused 06/26/2021 Do you belong to any clubs or organizations such as Patient refused 06/26/2021 worship groups, unions, fraternal or athletic groups, or [...] Sign Reading Time Taken Comments Blood Pressure 132/72 03/06/2020 4:00 AM CDT Pulse 63 03/06/2020 4:00 AM CDT Temperature 36.3 ??C (97.3 ??F) 03/06/2020 1:18 AM CDT Respiratory Rate 17 03/06/2020 4:00 AM CDT Oxygen Saturation 95% 03/06/2020 4:00 AM CDT Inhaled Oxygen Concentration - - Weight 98 kg (216 lb 0.8 oz) 03/06/2020 1:23 AM CDT Height - - Body Mass Index 37.02 04/05/2019 1:10 PM CDT documented in this encounter Discharge Instructions Discharge InstructionsTimmy Smith APRN, C.N.P. - 03/06/2020 4:09 AM CDT My name is Timmy and I'm the nurse practitioner taking care of you. Thank you for allowing me to care for you today. I do have additional information regarding your care. I am reassured by a blood work and a chest x-ray and EKG. I have low suspicion that your having a heart attack at this time. I do think her symptoms suggestive for anxiety component. I have prescribed you Ativan to go home with as needed for your anxiety. I do recommend you follow-up with primary provider within 2 days for further evaluation of your chest pain and anxiety if possible. Make sure you do not drink alcohol, operate machinery, or take other narcotic in combination with the Ativan. Return to the ED if you develop fever, if you passed out, difficulty with breathing, chest pain, slurred speech, weakness, nausea or vomiting you cannot control, unable to void, fatigue, worsening symptoms, or any other concerns at all. Sincerely, Timmy AttachmentsThe following attachments cannot be sent through Care Everywhere. Living With Anxiety (Paraguayan)Hypokalemia ([place]aguayan)Shortness of Breath Adult Gfge-cx-Djxo ([place]ayan)Nonspecific Chest Pain Adult Fxhx-nk-Xtqw ([place]aguayan) documented in this encounter Medications at Time of Discharge Medication Sig Dispensed Refills Start Date End Date administration supplies 0 02/12/2015 (INPEN, FOR NOVOLOG,) injector pen traMADoL (ULTRAM) 50 mg Take 50 mg by mouth 0 05/26/2021 tablet every 6 (six) hours as needed for pain. traZODone (DESYREL) 50 mg Take 50 mg by mouth 0 1 10/15/2015 05/26/2021 tablet 2 (two) times a day. acetaminophen (OFIRMEV) Take 1,000 mg by 0 201505/26/2021 1,000 mg/100 mL (10 mg/mL) mouth as needed. injection acetaminophen (TYLENOL Take 1-2 tablets by 0 07/1305/26/2021 EXTRA STRENGTH) 500 mg mouth every 6 (six) tablet hours as needed. amlodipine besylate 5 mg. 0 02/12/201405/26 (AMLODIPINE ORAL) amLODIPine-atorvastatin Take by mouth 0 6 05/26/2021 (CADUET) 5-10 mg per daily. tablet atorvastatin calcium 10 mg. 0 02/12/201405/11 (ATORVASTATIN ORAL) CHLORTHALIDONE ORAL 25 mg. 0 02/12/201905/26 cholecalciferol (VITAMIN Take 1 capsule by 0 06/201605/26/2021 D3) 2,000 Unit capsule mouth daily. glipiZIDE (GLUCOTROL) 10 Take 10 mg by mouth 0 05/26/2021 mg tablet 2 (two) times a day before breakfast and dinner. GLIPIZIDE ORAL 0 02/12/2014 05/26/2021 insulin glargine (LANTUS Inject 42 Units 0 201405/26/2021 SOLOSTAR U-100 INSULIN) under the skin as 100 unit/mL (3 mL) directed. injection insulin glargine (LANTUS Inject under the 0 05/26/2021 U-100 INSULIN) 100 unit/mL skin. injection loratadine (CLARITIN) 5 if needed 0 0 05/26/2021 mg/5 mL solution LORazepam (ATIVAN) 0.5 mg Take 1 tablet (0.5 6 tablet 0 05/26/2021 tablet mg total) by mouth 3 (three) times a day as needed for anxiety for up to 7 days. metoprolol succinate Take 1 tablet by 0 6 05/26/2021 (TOPROL-XL) 25 mg 24 hr mouth daily. tablet metoprolol succinate Take 1 tablet by 0 6 05/26/2021 (TOPROL-XL) 50 mg 24 hr mouth daily. tablet METOPROLOL SUCCINATE ORAL Take 75 mg by mouth 0 1 05/26/2021 daily. metoprolol tartrate 0 02/12/201405/26 (LOPRESSOR) 25 mg tablet metoprolol tartrate 0 02/12/201405/26 (LOPRESSOR) 50 mg tablet SITagliptin (JANUVIA) 50 Take 50 mg by mouth 0 05/26/2021 mg tablet daily. SITagliptin (JANUVIA) 50 0 04/14/2015 05/26/2021 mg tablet documented as of this encounter ED Notes Timmy Smith, TYRONE, CSukhiN.P. - 03/06/2020 1:28 AM CDT SUBJECTIVE CHIEF COMPLAINT/REASON FOR VISIT Shortness of Breath and Anxiety HISTORY OF PRESENT ILLNESS History provided by: Patient Angeles Morales is a 59 y.o. female with history of hypertension, chronic kidney disease, and diabetes who presents to the ED with complaint of shortness of breath. Patient reports last night prior to going to sleep but she started feeling slightly anxious at the 10:00 p.m.. She states she she wokeup 12:15 a.m. with shortness of breath as well as substernal chest pain. She described the pain as intermittent and 2/10. She denies any pain at this time. She does endorse a chills. Denies any fever, abdominal pain, nausea, vomiting, or diarrhea. She does say that she has been having lower back pain since February 15 and has been having seen a chiropractor for it. She denies any recent injury or trauma.Denies any saddle anesthesia, weakness, or loss of sensation. REVIEW OF SYSTEMS Constitutional: Negative for chills and fever. HENT: Negative for facial swelling. Eyes: Negative for jenny-orbital edema. Respiratory: Positive for shortness of breath. Negative for cough. Cardiovascular: Positive for chest pain. Negative for leg swelling. Gastrointestinal: Negative for abdominal pain, diarrhea, nausea and vomiting. Genitourinary: Negative for dysuria, flank pain and frequency. Musculoskeletal: Negative. Skin: Negative. Negative for pallor. Neurological: Negative. Psychiatric/Behavioral: Negative for hallucinations, homicidal ideas and suicidal ideas. The patientis nervous/anxious. All other systems reviewed and are negative. OBJECTIVE Initial Vitals Temperature Pulse Rate Heart Rate Resp Rate Blood Pressure SpO2 03/06/20 0118 03/06/20 0118 03/06/20 0130 03/06/20 0118 03/06/20 0118 03/06/20 0118 36.3 ??C 64 64 (!) 26 156/72 98 % Pain Score -- PHYSICAL EXAMINATION Constitutional: Nursing note and vitals reviewed. She appears not lethargic. No distress. HENT: Head: Normocephalic. No signs of injury. Nose: Nose normal. Mouth/Throat: Mucous membranes are moist. Eyes: Conjunctivae and EOM are normal. Extraocular Movements: EOM normal. Neck: Normal range of motion. Neck supple. Cardiovascular: Normal rate, regular rhythm and normal heart sounds. Capillary refill: takes less than 3 seconds, Pulmonary/Chest: Effort normal and breath sounds normal. Abdominal: Soft. Bowel sounds are normal. There is no abdominal tenderness. Musculoskeletal: Normal range of motion. Neurological: She is alert and oriented to person, place, and time. Skin: Skin is warm and dry. She is not diaphoretic. Psychiatric: Her mood appears anxious. ASSESSMENT/PLAN Impression and Plan Patient seen and examined. AIDET performed. Life threatening differential diagnoses considered include: cardiac tamponade, esophageal rupture, pulmonary edema, acute coronary syndromes, pulmonary embolism, pneumonia, and pneumothorax. Other differential diagnoses considerations include asthma, bronchitis, COPD exacerbation, as well as other etiologies. During the evaluation of this patient I considered multiple differential diagnoses. The life threatening differentials include: ACS/TX, pulmonary embolism, tension pneumothorax, cardiac tamponade, Esophageal rupture, and aortic dissection. Other differential diagnoses include but are not limited to: pericarditis, myocarditis, chest wall pain, GERD, pneumonia, as well as other etiologies. There is no aortic regurgitation on auscultation of heart sound. ??Patient has no tearing or rippingpain. Patient has no focal neurological deficits. Patient denies any back pain or abdominal pain. Patient has no widened mediastinum in the chest x-ray. ??Patient described pain as gradual onset and gradual in intensity. I have low suspicion that this is due to aortic dissection. Chest x- ray did not reveals any pneumonia, pneumomediastinum, or pneumothorax. EKG reveals no ST elevation or ischemic changes. Troponin is unremarkable. I have low suspicion for ACS or TX. She was given a dose of Ativan in the ED and her symptoms did improve. Her blood work did shows hyperkalemia. She was given 60 mEq of oral potassium. She does have elevated creatinine level however, isbaseline with her recent lab in November of 2019. After considering the context of the patient's history, exam, and diagnostic results, my impression is??hypokalemia, chest pain, shortness of breath, anxiety. Plan: Plan is to discharge patient home with prescription for Ativan as needed for anxiety. I did recommend the patient follow with primary provider for further evaluations of her chest pain, shortnessof breath, anxiety in 2 days if possible. I have advised on strict return precaution. She states understanding and is agreeable with plan of care. All questions asked were answered. Spouse as escort home. I reviewed previous medical records including documentation from previous visits, radiology images/report, EKG images/reports and lab results. I personally reviewed the lab result(s) and my interpretation is abnormal but at baseline. I personally reviewed the radiology image(s). The Radiology exam interpretation(s) is/are normal. I independently reviewed the ECG tracing and my interpretation is abnormal and non-specific. PERC Rule Age >=50: Yes Heart rate >=100: No O2 saturation on room air <95%: No Prior history of venous thromboembolism: No Trauma or surgery within 4 weeks: No Hemoptysis: No Exogenous estrogen: No Unilateral leg swelling: No PERC Results: PERC rule cannot be used to rule out PE in this patient Wells' Criteria PE Clinical signs and symptoms of DVT: No PE is #1 diagnosis, or equally likely: No Heart rate >100: No Immobilization at least 3 days, or surgery in the previous 4 weeks: No Previous, objectively diagnosed PE or DVT: No Hemoptysis: No Malignancy with treatment within 6 months, or palliative: No Wells' PE Points: 0 ED Course as of Mar 06 411WedMarch 06, 2020 0136 Patient does feels that her chest pain and shortness of breath could be suggestive for anxiety.She does not feel like her pain is due to a heart attack. She denies any pain at this time. 0136 Given that she is short of breath she does meet criteria for COVID testing. I did offer this tothe patient and she has declined this. 0139 Normal sinus rhythm with heart rate of 61. No ST elevation or ischemic changes seen. Prolonged QTC of 487 millisecond. When compared with EKG from December 2015 the QTC is new. ECG 12 Lead 0223 The patient denies any chest pain at this time. Her EKG shows no ischemic changes. 2 hour deltais pending. Troponin T, Baseline, 5th gen(!): 11 0229 Blood pressure 146/73 on left arm and 153/80 on the right arm. The patient exhibits no neurological deficits. She has no loss of sensation or slurred speech. She states her pain is lower back pain. She exhibits no thoracic pain back pain. She does not have any chest pain at this time. I have low suspicion her symptoms could be due to aortic dissection at this time. 0243 Potassium, P(!): 3.1 0245 Baseline compared with her recent the creatinine level. Creatinine, P(!): 1.90 0246 Elevated, however not 3 times above the upper normal limit. The patient does not have any pain at this time. Low suspicion this could be a pancreatitis. Lipase, P(!): 96 Final Diagnoses: as of Mar 06 411 Anxiety Shortness Of Breath Other Chest Pain Hypokalemia Timmy Smith, TYRONE, C.N.P. 03/06/20 0411 documented in this encounter Plan of Treatment Not on filedocumented as of this encounter Procedures Procedure Name Priority Date/Time Associated Comments Diagnosis TROPONIN T, 2H/6H, Timed 03/06/2020 3:35 Result s for this 5TH GEN, P AM CDT procedure are i n the results section. DX CHEST PORTABLE 1 RAD - Routine 03/06/2020 2:51 Resu lts for this VIEW (most inpatients AM CDT procedure a re in and all the results outpatients) section. TROPONIN T, STAT 03/06/2020 1:43 Results for this BASELINE, 5TH GEN, AM CDT procedure are in P the results section. NT-PRO B-TYPE STAT 03/06/2020 1:43 Results for this NATRIURETIC PEPTIDE AM CDT procedur e are in (BNP), S the results section. PROTHROMBIN TIME STAT 03/06/2020 1:43 Results for this (PT), P AM CDT procedure are i n the results section. CBC WITH STAT 03/06/2020 1:43 Results for this DIFFERENTIAL, B AM CDT procedure ar e in the results section. LIPASE, S/P STAT 03/06/2020 1:43 Results for this AM CDT procedure are i n the results section. BASIC METABOLIC STAT 03/06/2020 1:43 Results f or this PANEL, S/P AM CDT procedure are i n the results section. ECG STAT 03/06/2020 1:37 Results for this AM CDT procedure are i n the results section. documented in this encounter Results (ABNORMAL) Troponin T, 2H/6H, 5th Gen (03/06/2020 3:35 AM CDT) P athologist Signature Troponin T, 2 12 (H) <=10 ng/L 03/06/2020 [facility] hr, 5th gen 4:01 AM CDT Comment: Biotin has been identified by the abdoul austin as a potential interfering substance. ??Higher concentr ations of biotin may be found in multivitamins, hair/nail supple ments, and workout supplements. ??If the result does not ma [facility] clinical observations, repeat testing after patient refrains fr om the use of supplements for at least 12 hours. 2H Delta 1 ng/L 03/06/2020 4:01 AM CDT CNFL 2H Delta Interp Not Changing 03/06/2020 4:01 AM CD T [facility] Troponin T, 6 hr, 5th gen CANCELED ng/L 03/06/2020 4:0 1 AM CDT CNFL Comment: Result canceled by the yordy bravo Specimen Anatomical Collection Method Collection Time Receive d Time (Source) Location / / Volume Laterality Blood (Blood, 03/06/2020 3:35 AM 03/06/20 3:39 Venous) CDT AM CDT Narrative [facility] - 03/06/2020 4:01 AM CDT Specimen Information: Specimen ID: [id number] Specimen Type: Blood Specimen Collection Start Date: 03/06/20 ??3:35 AM Specimen Received Date: 03/06/2020 ??3:3 9 AM Specimen ID: [id number] Specimen Type: Blood Specimen Collection Start Date: 03/06/20 20 ??3:35 AM Specimen Received Date: 03/06/2020 ??3:3 9 AM Timmy PintoN.P. LAB BLOOD TROPONIN Performing Organization Address City/State/ZIP Code Phon e Number [facility]- [address] [place] [address] [place] [address] [place] [address] System in [place] [address] [address] DX Chest Portable 1 View (03/06/2020 2:51 AM CDT) Anatomical Region Laterality Modality Chest, Thoracic RST LOS, Thoracic ARZ LOS, Thoracic N/A Computed Radiography FLA LOS Specimen (Source) Anatomical Collection Method Collection Time Re ceived Time Location / / Volume Laterality 03/06/2020 8:33 AM CDT Impressions 03/06/2020 8:33 AM CDT 1. Nonspecific, borderline prominence of the pulmonary interstitium. Chest otherwise negative for acute findi ngs. Narrative 03/06/2020 8:33 AM CDT EXAM: DX CHEST PORTABLE 1 VIEW COMPARISON: August 08, 2016 FINDINGS: Preliminary report generated b y virtual radiology. Nonspecific, borderline prominence of th e bilateral central pulmonary interstitium. Calcified, tortuous, thoracic aorta. Procedure Note Jaciel Esparza M.D. - 03/06/2020Forma tting of this note might be different from the original. EXAM: DX CHEST PORTABLE 1 VIEW COMPARISON: August 08, 2016 FINDINGS: Preliminary report generated b y virtual radiology. Nonspecific, borderline prominence of th e bilateral central pulmonary interstitium. Calcified, tortuous, thoracic aorta. IMPRESSION: 1. Nonspecific, borderline prominence of the pulmonary interstitium. Chest otherwise negative for acute findi ngs. Timmy PintoN.P. IMG DIAGNOSTIC IMAGING PROCE DURES (ABNORMAL) Basic Metabolic Panel (03/06/2020 1:43 AM CDT) Analysis Performed At Patho logist Time Signature Potassium, P 3.1 (L) 3.6 - 5.2 03/06/2020 [facility] mmol/L 2:43 AM CDT Sodium, P 135 135 - 145 03/06/2020 [facility] mmol/L 2:43 AM CDT Chloride, P 95 (L) 98 - 107 03/06/2020 [facility] mmol/L 2:43 AM CDT Bicarbonate, P 19 (L) 22 - 29 03/06/2020 [facility] mmol/L 2:42 AM CDT Anion Gap, P 21 (H) 7 - 15 03/06/2020 [facility] 2:42 AM CDT BUN (Blood Urea 41 (H) 6 - 21 03/06/2020 [facility] Nitrogen), P mg/dL 2:42 AM CDT Creatinine 1.90 (H) 0.59 - 03/06/2020 [facility] 1.04 mg/dL 2:42 AM CDT eGFR-Black/Afri 33 (L) >=60 03/06/2020 [facility] can Samoan mL/min/BSA 2:42 AM CDT Comment: ----ADDITIONAL INFORMATION---- Estimated GFR calculated using the 2009 CKD_EPI creatinine equation. eGFR Non-Black/ 29 (L) >=60 mL/min/BSA 03/06/2020 2:42 AM CDT [facility] [place]an Comment: ----ADDITIONAL INFORMATION---- Estimated GFR calculated using the 2009 CKD_EPI creatinine equation. Calcium, Total, P 10.1 (H) 8.6 - 10.0 mg/dL 03/06/2020 2:42 AM CDT CNFL Glucose, P 110 70 - 140 mg/dL 03/06/2020 2:42 AM CDT C NFL Specimen Anatomical Collection Method Collection Time Receive d Time (Source) Location / / Volume Laterality Blood (Blood, 03/06/2020 1:43 AM 03/06/20 1:49 Venous) CDT AM CDT Warner N Smith C.N.P. LAB BLOOD ADD-ON Performing Organization Address City/State/ZIP Code Phon e Number [facility]- [address] [place] [id number] [place] [address] [address] Prothrombin Time (PT) (03/06/2020 1:43 AM CDT) P athologist Signature Prothrombin 12.3 9.4 - 12.5 03/06/2020 [facility] Time, P sec 2:00 AM CDT INR 1.1 0.9 - 1.1 03/06/2020 [facility] 2:00 AM CDT Comment: ----ADDITIONAL INFORMATION---- Standard intensity warfarin therapeutic range: 2.0 to 3.0 ?? High intensity warfarin therapeutic rang e: 2.5 to 3.5 Specimen Anatomical Collection Method Collection Time Receive d Time (Source) Location / / Volume Laterality Blood (Blood, 03/06/2020 1:43 AM 03/06/20 1:49 Venous) CDT AM CDT Timmy Smith C.N.P. LAB BLOOD ADD-ON Performing Organization Address [facility] Phon e Number [address] [address] [place] [address] (ABNORMAL) Troponin T, Baseline, 5th gen (03/06/2020 1:43 AM CDT) athologist Signature Troponin T, 11 (H) <=10 ng/L 03/06/2020 [facility] Baseline, 5th 2:21 AM CDT gen Comment: Biotin has been identified by the abdoul austin as a potential interfering substance. ??Higher concentr ations of biotin may be found in multivitamins, hair/nail supple ments, and workout supplements. ??If the result does not ma [facility] clinical observations, repeat testing after patient refrains fr om the use of supplements for at least 12 hours. Specimen Anatomical Collection Method Collection Time Receive d Time (Source) Location / / Volume Laterality Blood (Blood, 03/06/2020 1:43 AM 03/06/20 20 1:49 Venous) CDT AM CDT Timmy Smith C.N.P. LAB BLOOD TROPONIN Performing Organization Address [facility] Code Phon e Number [address] [address] [place] [address] [address] (ABNORMAL) Lipase (03/06/2020 1:43 AM CDT) athologist Signature Lipase, P 96 (H) 13 - 60 U/L 03/06/2020 [facility] 2:42 AM CDT Specimen Anatomical Collection Method Collection Time Receive d Time (Source) Location / / Volume Laterality Blood (Blood, 03/06/2020 1:43 AM 03/06/20 1:49 Venous) CDT AM CDT Timmy N Smith C.N.P. LAB BLOOD ADD-ON Performing Organization Address City/[facility] Phon e Number [id number] [place] [address] [place] [address] NT-Pro B-Type Natriuretic Peptide (BNP) (03/06/2020 1:43 AM CDT) athologist Signature NT-Pro BNP 60 <=168 pg/mL 03/06/2020 [facility] 2:28 AM CDT Comment: NT-proBNP values less than 300 pg/mL hav e a 99% negative predictive value for excluding acute congestive heart mohit lure. A cutoff of 1200 pg/mL for patients with an eGFR<60 yields a diagno stic sensitivity and specificity of 89% and 72% for acute congestive heart f ailure. ??A diagnostic NT-proBNP cutoff of 900 pg/mL has been suggested i n adults 50-75 years of age in the absence of renal failure. Biotin has been identified by the abdoul austin as a potential interfering substance. ??Higher concentr ations of biotin may be found in multivitamins, hair/nail supple ments, and workout supplements. ??If the result does not ma [facility] clinical observations, repeat testing after patient refrains fr om the use of supplements for at least 12 hours. Specimen Anatomical Collection Method Collection Time Receive d Time (Source) Location / / Volume Laterality Blood (Blood, 03/06/2020 1:43 AM 03/06/20 1:49 Venous) CDT AM CDT Timmy N Smith C.N.P. LAB BLOOD ADD-ON Performing Organization Address City/State/ZIP Code Phon e Number [facility]- [address] [place] [phone] [place] [address] [address] (ABNORMAL) CBC with Differential, Blood (03/06/2020 1:43 AM CDT) [facility] gist Method Time Signature Hemoglobin 15.8 (H) 11.6 - 03/06/2020 [facility] 15.0 g/dL 2:03 AM CDT Hematocrit 44.6 35.5 - 03/06/2020 [facility] 44.9 % 2:03 AM CDT Erythrocytes 5.47 (H) 3.92 - 03/06/2020 [facility] 5.13 2:03 AM CDT x10(12)/L MCV 81.5 78.2 - 03/06/2020 [facility] 97.9 fL 2:03 AM CDT RBC Distrib Width 12.3 12.2 - 03/06/2020 [facility] 16.1 % 2:03 AM CDT Platelet Count 130 (L) 157 - 371 03/06/2020 [facility] x10(9)/L 2:03 AM CDT Leukocytes 11.4 (H) 3.4 - 9.6 03/06/2020 CN[facility] x10(9)/L 2:03 AM CDT Neutrophils 8.41 (H) 1.56 - 03/06/2020 [facility] 6.45 2:03 AM CDT x10(9)/L Lymphocytes 1.80 0.95 - 03/06/2020 [facility] 3.07 2:03 AM CDT x10(9)/L Monocytes 1.06 (H) 0.26 - 03/06/2020 [facility] 0.81 2:03 AM CDT x10(9)/L Eosinophils 0.09 0.03 - 03/06/2020 [facility] 0.48 2:03 AM CDT x10(9)/L Basophils 0.04 0.01 - 03/06/2020 CN[facility] 0.08 2:03 AM CDT x10(9)/L Specimen Anatomical Collection Method Collection Time Receive d Time (Source) Location / / Volume Laterality Blood (Blood, 03/06/2020 1:43 AM 03/06/20 20 1:49 Venous) CDT AM CDT Timmy Smith C.N.P. LAB BLOOD ADD-ON Performing Organization Address City/State/ZIP Code Phon e Number [facility]- [id number] [address] [place] [address] System [address] ECG 12 Lead (03/06/2020 1:37 AM CDT) P athologist Signature Ventricular Rate 61 BPM MUSE ECG/Min [place] Interval 172 ms MUSE QRSD Interval 96 ms MUSE QT Interval 475 ms MUSE QTC Interval 479 ms MUSE P [place] 0 degrees MUSE R [place] -7 degrees MUSE T Wave [place] -8 degrees MUSE Specimen Anatomical Collection Method Collection Time Receive d Time (Source) Location / / Volume Laterality 03/06/2020 1:37 AM 0 2:25 CDT AM CDT Impressions MUSE - 03/06/2020 2:25 AM CDT Normal sinus rhythm Nonspecific ST abnormality When compared with ECG of 10-DEC-2015 11 :14, T waves have changed Reviewed by MARTHA aCgle Narrative This result has an attachment that is no t available. Procedure Note Angella Farah M.D. - 03/06/2020 IMPRESSION: Normal sinus rhythm Nonspecific ST abnormality When compared with ECG of 10-DEC-2015 11 :14, T waves have changed Reviewed by MARTHA Cagle Warner N Smith C.N.P. ECG ORDERABLES Performing Organization Address City/State/ZIP Code Phon e Number [facility] HEMANTH NA documented in this encounter Visit Diagnoses Diagnosis Anxiety - Primary Shortness Of Breath Other Chest Pain Hypokalemia documented in this encounter Administered Medications Inactive Administered Medications - up to 3 most recent administrations Medication Order MAR Action Action Date Dose Rate Site LORazepam tablet 1 mg (ATIVAN) Given 03/06/2020 2:05 AM CDT 1 mg 1 mg, oral, Once, On Wed03/06/20 at 0128, For 1 dose potassium chloride ER tablet 60 mEq (KLOR-CON Given 3:01 AM CDT 60 mEq M/KDUR) 60 mEq, oral, Once, On Wed03/06/20 at 0247, For 1 dose, For K<3.0-3.2 mEq/L - give total of 60 mEq Depending on the desk maker this tablet may be split on score and give as partial tablets, or added to an ounce of water and dispersed into a slurry for drinking. It is not recommended that the microburst tablet be crushed as it may cause stomach upset. , Monitor the following for replacement: Potassium, Replace Potassium per: Standard Schedule documented in this encounter Active and Recently Administered Medications Times are shown in CDT. Scheduled Medication Order 03/04/2020 03/05/2020 03/06/2020 lidocaine 5 % 1 patch (LIDODERM) 0304 (Not Given - Provider: Rosalina Francisco R.N. - Reason: Patient/family refused) 1 patch, transdermal, Administer over 12 Hours, Once, Wed03/06/20 at 0147, For 1 dose, Remove after 12 hours. LORazepam tablet 1 mg (ATIVAN) (COMPLETED) 0205 (Given - Provider: Rosalina Francisco R.N.) 1 mg, oral, Once, On Wed03/06/20 at 0128, For 1 dose potassium chloride ER tablet 60 mEq (KLOR-CON M/KDUR) (COMPLETED ) 0301 (Given - Provider: Rosalina Francisco RJayda) 60 mEq, oral, Once, On Wed03/06/20 at 02 47, For 1 dose, For K<3.0-3.2 mEq/L - give total of 60 mEq Depending on the desk maker this tablet may be split on score and give as partial tablets, or adde d to an ounce of water and dispersed int o a slurry for drinking. It is not recommended that the microburst tablet be crushed as it may cause stomach upset. , Monitor the following for replacement: Potassium, Replace Potassium per: Standard Schedule documented in this encounter
--- OUTSIDE RECORDS SUMMARY | 2022-07-27 09:26 | XMS_ITS | Encounter Summary ---
:1960 Author Organization [facility] Address [address] [place] [address] Care Team Providers Name Role Phone Elsewhere, Pcp Primary Care Provider Unavailable Encounter Details Date Type Department Care Team Description 08/06/2020 Immunization Department of [facility] Carolyn Manning Vaccine Medicine, Pelon Mcduffie M.D. Immunization [address] [address] [place], [place] [phone] (Work) [phone] Social History Tobacco Use Types Packs/Day Years [...] 06/26/2021 relatives? How often do you attend islam or yarsanism services? Patien t refused 06/26/2021 Do you belong to any clubs or organizations such as Patient refused 06/26/2021 islam groups, unions, fraternal or athletic groups, or [...] as of this encounter Visit Diagnoses Diagnosis Need Vaccine Immunization Influenza documented in this encounter Care Teams Chemical Process Operator Relationship Specialty Start Date End Date Elsewhere, Pcp PCP - General Family Medicine 07/12/20 05/05/21 documented as of this encounter
--- OUTSIDE RECORDS SUMMARY | 2022-07-27 09:26 | XMS_ITS | Encounter Summary ---
:[address] [facility] Address [address] [place] [address] Care Team Providers Name Role Phone Anabella Chow APRN, C.N.Anna, D.N.P. Primary Care Provider Encounter Details Date Type Department Care Team Description 05/26/2021 Hospital Encounter Department of Anabella Chow Pai n [place] D[place] [address] [phone] (Wo rk) Social History Tobacco Use Types [...] 06/26/2021 relatives? How often do you attend mandaeism or synagogue services? Patien t refused 06/26/2021 Do you belong to any clubs or organizations such as Patient refused 06/26/2021 mandaeism groups, unions, fraternal or athletic groups, or [...] place to sleep or slept in a fpc (including now)? Education Answer Date Recorded What [...] Procedure Name Priority Date/Time Associated Comments Diagnosis DX HIP AND PELVIS RAD - Routine 05/26/2021 12:24 Pain Hip Left Resu lts for this LEFT 2-3 VIEWS (most inpatients PM CDT procedure are in and all the results outpatients) section. documented in this encounter Results DX Hip And Pelvis Left 2-3 Views [...] trochanter. 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 Anabella Chow APRN C.N.P., D.N.P. IMG DIAGNOSTIC IM AGING PROCEDURES documented in this encounter Visit Diagnoses Diagnosis Pain Hip Left documented in this encounter Additional Health Concerns Assessment Noted Time PHQ-9 Depression Total Score: 1 05/26/2021 11:46 AM CD T documented as of this encounter Care Teams Monogram Operator Relationship Specialty Start Date End Date Anabella Chow APRN, C.N.P., PCP - General Internal Medicine 04/1105/10/22 D.N.P. [address] [place] [address] documented as of this encounter
--- OUTSIDE RECORDS SUMMARY | 2022-07-27 09:26 | XMS_ITS | Encounter Summary ---
:1960 Author Organization [facility] Address [address] [place] [address] Care Team Providers Name Role Phone Unavailable Primary Care Provider Unavailable Reason for Visit Appointment Request (Routine) - Closed Specialty Diagnoses / Procedures Referred By Contact Refer red To Contact Nephrology and Karmen Naranjo, Hypertension [address] [place] [address] Referral ID Status Reason Start Date Expiration Date Visits Requ ested Visits Authorized [id number] Closed 03/29/2020 03/29/2021 1 1 Encounter Details Date Type Department Care Team Description 04/10/2020 External Outreach Division of Rafael, Ashwin Ki dney Disease Stage 3 Glomerular Filtration Rate 30 To 59 (HCC) (Primary Dx); Nephrology and Reza Lamar Jr., Hypertension And Chronic Kidney Disease Stage 1 To 4; Hypertension in [place]. Diabetes Mellitus Type 2 (HCC) [place], [place] [address] [facility] [address] [place] [phone] Social History Tobacco Use Types Packs/Day Years [...] How often do you attend zoroastrianism or christian services? Shelli machuca refused 06/26/2021 Do you [...] place to sleep or slept in a group home (including now)? Education Answer Date Recorded What is the highest level of school Associate degree: milan anicetokatelyn, 04/02/2019 you have completed or the highest technical, or vocational p brittani degree you have received? Sex Assigned at Date Recorded Not on file documented as of this encounter Consult Notes Reza Hall Jr., D.O. - 04/10/2020 11:00 AM CDT Please see scanned in note under document viewer tab for the [facility] outreach visit from this date. documented in this encounter Plan of Treatment Not on filedocumented as of this encounter Visit Diagnoses Diagnosis Chronic Kidney Disease Stage 3 Glomerula r Filtration Rate 30 To 59 (HCC) - Primary Hypertension And Chronic Kidney Disease Stage 1 To 4 Diabetes Mellitus Type 2 (HCC) documented in this encounter
--- OUTSIDE RECORDS SUMMARY | 2022-07-27 09:26 | XMS_ITS | Encounter Summary ---
:1960 Author Organization [facility] Address [address] [place] [address] Care Team Providers Name Role Phone Unavailable Primary Care Provider Unavailable Reason for Visit Physical Therapy (Routine) - Canceled Specialty Diagnoses / Procedures Referred By Contact Refer red To Contact Diagnoses Herniated Disc Lumbar Yandel Boswell M.D. [facility] Procedures PT Ongoing treatment [address] [place] [address] Referral ID Status Reason Start Date Expiration Date Visits V isits Requested Authorized [id number] Canceled 04/08/2020 10/10/2020 99 99 Encounter Details Date Type Department Care Team Description 05/21/2020 Clinical Support Department of Yandel Boswell M.D. [address] [place] [address] Herniated Disc Rehabilitation Niurka Serrano PSukhiT., D.P.T. Lumbar Services in [address] [phone] Social History Tobacco Use Types Packs/Day Years [...] 06/26/2021 relatives? How often do you attend catholic or latter-day services? Shelli machuca refused 06/26/2021 Do you belong to any clubs or organizations such as Patient refused 06/26/2021 catholic groups, unions, fraternal or athletic groups, or [...] Progress Notes Niurka Serrano P.T., D.P.T. - 05/21/2020 10:30 AM CDT Physical Therapy Outpatient Treatment Note SUBJECTIVE Patient's Name: Angeles Morales Referring Provider: Yandel Boswell M.D. Visit Diagnosis: 1. Herniated Disc Lumbar Reason for Referral: PT eval and treat Onset Date: 03/29/20 Payor: [employer] / Plan: [employer] OPEN ACCESS / Product Type: PPO / No data recorded Epic Visit Count: 5 Patient comments: Patient states that her low back pain continues to improve. She states that she has been walking down to the end of her driveway each day with no pain. She states that she sometimes experiences radiating pain to her left foot at the end of the day. She states that she is completing her HEP as instructed. OBJECTIVE Pain: no numeric pain value given today Lumbar screen: WNLs in all motions, radiating pain reported with flexion TREATMENT Treatment today consisted of: -90/90 supine toe touches -Lumbar extension - 65 lbs - 10 reps - 2 sets Access Code: [email or web address] Exercises ??? Supine Bridge with Heels on Sammarinese Ball and Knees Bent - 10 reps - 3 sets - 1x daily - 7x weekly ??? Bridge with Heels on Sammarinese Ball - 10 reps - 3 sets - 1x daily - 7x weekly ??? Bird Dog - 10 reps - 3 [...] daily - 7x weekly Home Exercise Program/Education: HEP was updated. Pt reports good compliance with her HEP. Contact monitoring: PPE used during therapy: Therapist was wearing the following PPE throughout entire session: surgicalmask and eye protection Assessment Clinical Impression: Patient is progressing with strengthening exercises and tolerated the session well. Patient continues to experience relief from recent cortisone injection. Patient will continue tobenefit from skilled PT to progress strengthening and [...] PROGRESSING Plan Plan for next session: Sci-fit, continue 90/90 Time Spent with Patient Therapeutic Exercise (min): 27 min Time Calculation Total Timed Units (min): 27 min Total Treatment Time (min): 27 min Niurka Serrano P.T., D.P.T. Department of Rehabilitation Services in [address] [address] Dept: [phone] documented in this encounter Plan of Treatment Not on filedocumented as of this encounter Visit Diagnoses Diagnosis Herniated Disc Lumbar documented in this encounter
--- OUTSIDE RECORDS SUMMARY | 2022-07-27 09:26 | XMS_ITS | Encounter Summary ---
:1960 Author Organization [facility] Address [address] [place] [address] Care Team Providers Name Role Phone Elsewhere, Pcp Primary Care Provider Unavailable Encounter Details Date Type Department Care Team Description 07/12/2020 Clinical Communication Department of [facility] Mary Pinto, Medicine, [place] TYRONE C.N.[place], Clinic, in [place] [address] [phone] Social History Tobacco Use Types Packs/Day Years [...] 06/26/2021 relatives? How often do you attend mormonism or rastafari services? Patien t refused 06/26/2021 Do you belong to any clubs or organizations such as Patient refused 06/26/2021 mormonism groups, unions, fraternal or athletic groups, or [...] on filedocumented in this encounter Care Teams Sheet Fed Printer Relationship Specialty Start Date End Date Elsewhere, Pcp PCP - General Family Medicine 07/12/20 05/05/21 documented as of this encounter
--- OUTSIDE RECORDS SUMMARY | 2022-07-27 09:26 | XMS_ITS | Encounter Summary ---
:1960 Author Organization [facility] Address [address] [place] [address] Care Team Providers Name Role Phone Unavailable Primary Care Provider Unavailable Reason for Visit Physical Therapy (Routine) - Canceled Specialty Diagnoses / Procedures Referred By Contact Refer red To Contact Diagnoses Herniated Disc Lumbar Yandel Boswell M.D. [facility] Procedures PT Ongoing treatment [address] [place] [address] Referral ID Status Reason Start Date Expiration Date Visits V isits Requested Authorized [id number] Canceled 04/08/2020 10/10/2020 99 99 Encounter Details Date Type Department Care Team Description 04/16/2020 Clinical Support Department of Yandel Boswell M.D. [address] [place] [address] Herniated Disc Rehabilitation Niurka Serrano PSukhiT., D.P.T. Lumbar Services in [address] [phone] Social History Tobacco Use Types Packs/Day Years [...] How often do you attend quaker or temple services? Shelli machuca refused 06/26/2021 Do you [...] Progress Notes Niurka Serrano P.T., D.P.T. - 04/16/2020 10:30 AM CDT Physical Therapy Outpatient Treatment Note SUBJECTIVE Patient's Name: Angeles Morales Referring Provider: Yandel Boswell M.D. Visit Diagnosis: 1. Herniated Disc Lumbar Reason for Referral: PT eval and treat Onset Date: 03/29/20 Payor: [employer] / Plan: [employer] OPEN ACCESS / Product Type: PPO / No data recorded Epic Visit Count: 2 Patient comments: Patient states that her low back pain has increased in the last day. She states that last night she experienced increased left LE radiating pain after increasing her daily walking distance. Over the interval she was walking half way down her driveway and back with no increased pain. She states that yesterday she increased her distance to [address] driveway which increased her pain. She states that today she presents with left LE radiating pain to her left foot. She ismanaging her pain with prescription pain meds. She questions if she should call and schedule her injection. OBJECTIVE Pain: 01/18 Lumbar screen: pain with flexion, left rotation and bilateral side bending Increased radiating pain with repeated flexion and repeated extension in standing + SLR on left at 45 degrees Moderate tenderness with palpation of left piriformis Hip flexion strength- Left: 3+, Right: 5 TREATMENT Treatment today consisted of: -Long axis distraction to left hip in supine -Piriformis stretch in supine -Lumbar extension machine, 65 lbs, x10 reps x2 sets -TA activation with table press -Grade II-III central PAs to L3-L5 in prone -Patient had difficulty with standing hip extension today secondary to difficulty and pain with single leg stance Access Code: [email or web address] Exercises ?? Prone Press Up on Elbows - 10 reps - 1x daily - 7x weekly ?? Standing Lumbar Extension - 10 reps - 1x daily - 7x weekly ?? Bridge - 10 reps - 2-3 sets - 3 seconds hold - 1x daily - 7x weekly ?? Standing Hip Extension - 10 reps - 2-3 sets - 1x daily - 7x weekly ?? Gastroc Stretch on Wall - 2-3 reps - 20-30 seconds hold - 1x daily - 7x weekly Home Exercise Program/Education: Patient will continue to mange pain medication with rest and ice. Patient instructed to take a few days off from her exercises to let her pain subside. Pt reports good compliance with her HEP. Contact monitoring: PPE used during therapy: Therapist was wearing the following PPE throughout entire session: surgicalmask and eye protection Assessment Clinical Impression: Patient presents with increased radiating pain to left lower extremity. Patientwas unable to get relief with positional changes. Patient demonstrates decreased left LE strength. Patient will continue to benefit from skilled PT to progress strengthening and optimize function Rehab Potential: Good Comorbidities: DM Type II, hypertension, CKD stage III Functional Goals and Timeframes: PT Goal #1: [...] PT Goal #4 Date: 06/17/20 PROGRESSING Plan Treatment/Interventions: Therapeutic exercise, Therapeutic functional activity, Gait training, Neuromuscular re-education, Manual therapy, Therapeutic modalities as needed Number of outpatient visits: 10 PT Frequency: 1-2x/week PT Duration: 10 weeks Plan: Continue with current plan Plan for next session: Sci-fit, FU on regular walking program, continue lumbar extension machine, FUtable top press down Time Spent with Patient Manual Therapy (min): 12 min Therapeutic Exercise (min): 16 min Time Calculation Total Timed Units (min): 28 min Total Treatment Time (min): 28 min Niurka Serrano P.T., D.P.T. Department of Rehabilitation Services in [address] [address] Dept: [phone] documented in this encounter Plan of Treatment Not on filedocumented as of this encounter Visit Diagnoses Diagnosis Herniated Disc Lumbar documented in this encounter
--- OUTSIDE RECORDS SUMMARY | 2022-07-27 09:27 | XMS_ITS | Encounter Summary ---
:1960 Author Organization [facility] Address [address] [place] [address] Care Team Providers Name Role Phone Unavailable Primary Care Provider Unavailable Encounter Details Date Type Department Care Team Description 07/11/2016 Hospital Encounter HX [facility] ED Suzanne Cavanaugh, P.A.-C. [id number] [id number] (Wo rk) Social History Tobacco Use Types Packs/Day Years Used Date Smoking Tobacco: Never Assessed Alcohol Habits Answer Date Recorded [...] 06/26/2021 relatives? How often do you attend roman catholic or jewish services? Patien t refused 06/26/2021 Do you belong to any clubs or organizations such as Patient refused 06/26/2021 roman catholic groups, unions, fraternal or athletic groups, [...] or slept in a chcf (including now)? Sex Assigned at Date Recorded Not on file documented as of this encounter Last Filed Vital Signs Vital Sign Reading Time Taken Comments Blood Pressure 167/81 07/11/2016 6:45 AM CDT Pulse 73 07/11/2016 6:13 AM CDT Temperature - - Respiratory Rate 16 07/11/2016 6:13 AM CDT Oxygen Saturation - - Inhaled Oxygen Concentration - - Weight - - Height - - Body Mass Index - - documented in this encounter Discharge Summaries Marina Hodges R.N. - 07/11/2016 7:43 AM CDT ED Depart Summary [facility] Emergency Department Clinical Discharge Summary PERSON INFORMATION Name ANGELES MORALES Age 55 Years 1960 12:00 AM Sex Female Language Guinean PCP PCP, ELSEWHERE Marital Status Visit Id Visit Reason Abdominal pain; Flank pain; Abdominal pain Specialty Enc Type Emergency Med Service Emergency Medicine Referred by Track Group [facility] ED Discharge 07/11/2016 7:30 AM Tracking Id [id number] Checkout 07/11/2016 7:30 AM Checkin 07/11/2016 5:09 AM Acuity 3 -Urgent Dispo Type * Discharged to Home or Self Care Arrival 07/11/2016 5:09 AM Reg Status Complete LOS 000 02:21 Address: [address] [place] [phone] Comment: PROVIDER INFORMATION Provider Role Provider Contact Time PEDRO MADDEN DESK MAKER Nurse 07/11/16 05:39 ARA CAVANAUGH PA-C ED Provider 07/11/16 05:[address] Abdomen; Leukocytosis; Pain Abdominal L Lower Quadrant (LLQ) Comment: PATIENT EDUCATION INFORMATION Instructions: [facility] Document Id: [id number] Marina Hodges R.N. - 07/11/2016 7:43 AM CDT ED Discharge Instructions [address] [address] Name: ANGELES MORALES Date of : 1960 12:00 AM Visit Date: 07/11/2016 5:09 AM [facility] Number: [id number] Address: [address] [place] [phone] Primary Care Provider: PCP, ELSEWHERE IMPORTANT: [facility] in [place] would like to thank you for allowing us to assist you with your healthcare needs. The following includes patient education materials and informationregarding your injury/illness. Diagnosis: Abnormal CT Abdomen; Leukocytosis; Pain Abdominal L Lower Quadrant (LLQ) Follow-Up Instructions: Your Upcoming Appointments: Date Time Location Provider No Appointments found Patient Education Materials: Consider Using Patient Online Services Patient Online Services is a secure online and Mobile application that lets you: ?? View lab and test results ?? View portions of your medical record including clinical notes, immunizations and discharge summaries ?? Request an appointment or medication refill ?? Review your appointment schedule ?? Send secure messages to your care team Its easy to create an account if you dont have one. Go to [email or web address] and click on Create Your Account. Then, follow the directions to complete the online form. Youll be asked for your [facility] number which you can find at the top of this document. ED Tests and Procedures: Order Status Automated Diff-5 Part Completed Urinalysis with Culture if Indicated Completed CT Stone Protocol Completed CBC (includes Auto Differential) Completed Comprehensive Metabolic Panel Completed Lipase Level Completed CT Abdomen w/o contrast Canceled Discharge Prescriptions & Home Medications: Medication/Strength Dose Route Frequency Indications/Special Instructions/Comments/Notes insulin glargine (Lantus) 22 units Subcutaneous once a day glipiZIDE (glipiZIDE) 10 mg Oral once a day sitaGLIPtin (Januvia) 50 mg Oral once a day amLODIPine (amLODIPine) Oral once a day metoprolol (metoprolol) 75 mg Oral once a day Comment: Attention: If you have any medications at home not on this list, DO NOT take them until you contact your provider for clarification. Give a copy of your medication list to your primary care provider. Update your medication list any time medications or doses are changed and carry your medication list at all times in case of emergency. IMPORTANT: We examined and treated you today on an emergency basis only. This was not a substitute for, or an effort to provide, complete medical care. In most cases, you must let your doctor check youagain. Tell your doctor about any new or lasting problems. We cannot recognize and treat all injuries or illnesses in one Emergency Department visit. If you had special tests, such as EKG's or X- rays, we will review them again within 24 hours. We will call you if there are any new suggestions. Please follow the instructions above carefully. If you are being transferred to another facility your followup plan of care will be determined by the receiving facility. If you are a patient that is being discharged from the Emergency Department after receiving narcotics or other medications that may impair your judgment you may be a risk to yourself or others if you operate a motor vehicle. We recommend that you arrange a ride home with a responsible democrat. MARICRUZ Reardon SALLY JEAN , or responsible democrat have received this information and my questions have been answered. I have discussed any challenges I see with this plan with the nurse or physician. Patient Signature or Responsible Green Party/Relationship Date Time Provider Signature Date Time IMPORTANT: We examined and treated you today on an emergency basis only. This was not a substitute for, or an effort to provide, complete medical care. In most cases, you must let your doctor check youagain. Tell your doctor about any new or lasting problems. We cannot recognize and treat all injuries or illnesses in one Emergency Department visit. If you had special tests, such as EKG's or X- rays, we will review them again within 24 hours. We will call you if there are any new suggestions. Please follow the instructions above carefully. If you are being transferred to another facility your followup plan of care will be determined by the receiving facility. If you are a patient that is being discharged from the Emergency Department after receiving narcotics or other medications that may impair your judgment you may be a risk to yourself or others if you operate a motor vehicle. We recommend that you arrange a ride home with a responsible democrat. MARICRUZ Reardon SALLY JEAN , or responsible democrat have received this information and my questions have been answered. I have discussed any challenges I see with this plan with the nurse or physician. Patient Signature or Responsible Green Party/Relationship Date Time Provider Signature Date Time Source: [facility] POWERCHART Document Id: [id number] documented in this encounter Medications at Time of Discharge Medication Sig Dispensed Refills Start Date End Date administration supplies 0 02/12/2015 (INPEN, FOR NOVOLOG,) injector pen amlodipine besylate 5 mg. 0 02/12/201405/26 (AMLODIPINE ORAL) amLODIPine-atorvastatin Take by mouth 0 6 05/26/2021 (CADUET) 5-10 mg per daily. tablet atorvastatin calcium 10 mg. 0 02/12/201405/11 (ATORVASTATIN ORAL) cholecalciferol (VITAMIN Take 1 capsule by 0 06/201605/26/2021 D3) 2,000 Unit capsule mouth daily. glipiZIDE (GLUCOTROL) 10 Take 10 mg by mouth 0 05/26/2021 mg tablet 2 (two) times a day before breakfast and dinner. GLIPIZIDE ORAL 0 02/12/2014 05/26/2021 insulin glargine (LANTUS Inject 42 Units 0 201405/26/2021 SOLOSTAR U-100 INSULIN) under the skin as 100 unit/mL (3 mL) directed. injection METOPROLOL SUCCINATE ORAL Take 75 mg by mouth 0 1 05/26/2021 daily. metoprolol tartrate 0 02/12/201405/26 (LOPRESSOR) 25 mg tablet metoprolol tartrate 0 02/12/201405/26 (LOPRESSOR) 50 mg tablet SITagliptin (JANUVIA) 50 Take 50 mg by mouth 0 05/26/2021 mg tablet daily. SITagliptin (JANUVIA) 50 0 04/14/2015 05/26/2021 mg tablet documented as of this encounter ED Notes Marina Hodges R.N. - 07/11/2016 7:37 AM CDT ED Disposition Summary ED Disposition Summary Entered On: 07/11/2016 7:38 CDT Performed On: 07/11/2016 7:37 CDT by MARINA HODGES DESK MAKER Disposition Summary Present in Room During Exam/Procedure : Spouse Mode of Discharge : Ambulatory Transportation : Private vehicle Printed Discharge Instructions Given to Patient : No Reason Discharge Instructions Not Given : patient transfered by private car to [facility] [place] Patient Status at Discharge from ED : Improved MARINA HODGES RN - 07/11/2016 7:37 CDT Source: [facility] [employer] Document Id: [id number] CDT!8 Ara Cavanaugh P.A.-C. - 07/11/2016 6:50 AM CDT Abdominal pain Patient: ANGELES MORALES Age: 55 years Sex: Female : 1960 Author: ARA CAVANAUGH PA-C Attachments: None Associated Diagnosis: Pain Abdominal L Lower Quadrant (LLQ); Leukocytosis; Abnormal CT Abdomen Basic Information Additional information: Chief Complaint from Nursing Triage Note : Chief Complaint Description 07/11/2016 5:39 CDT Chief Complaint Description see triage note 07/11/2016 5:17 CDT Chief Complaint Description is having lower left abdominal pain that wraps to the back. started about 0400 today. thinks may be passing a kidney stone. was seen aout 1 month ago andtold may have stone. took 500mg tylenol prior to coming in but threw up. cant have ibuprofen. . History of Present Illness C/o LLQ abd pain and L flank pain that began at 0400 this am with N/V. Pt had similar symptoms 3 weeks ago for which she saw her PCP. She was found to have hematuria and was told she may have a kidney stone. The previous pain had completely resolved and returned this AM. Denies diarrhea, constipation,blood in stool or urine. Last meal was 12 hours ago. Denies vaginal bleeding or vaginal discharge. Review of Systems Constitutional symptoms: No fever. Skin symptoms: No rash. Eye symptoms: Vision unchanged. ENMT symptoms: No sore throat. Respiratory symptoms: No shortness of breath or no cough. Cardiovascular symptoms: No chest pain. Gastrointestinal symptoms: Abdominal pain, nausea and vomiting, but no diarrhea or no rectal bleeding. Genitourinary symptoms: No dysuria. Musculoskeletal symptoms: No back pain. Neurologic symptoms: No headache, no dizziness or no altered level of consciousness. Additional review of systems information: All other systems reviewed and otherwise negative. Health Status Allergies: Allergic Reactions (Selected) Severity Not Documented Amoxicillin- No reactions were documented. NSAIDs- No reactions were documented.. Past Medical/ Family/ Social History Medical history: No active or resolved past medical history items have been selected or recorded.. Surgical history: Ablation ([id number]) in 2005 at 45 Years. Comments: 06/11/2011 10:39 - ANGELA LEONARD [employer] Uterine. Family history: No family history items have been selected or recorded.. Physical Examination Vital Signs: Vital Signs 07/11/2016 6:30 CDT Pulse SpO2 69 /min SpO2 96 % Systolic Blood Pressure 167 mmHg >HHI Diastolic Blood Pressure 86 mmHg Mean Arterial Pressure 111 mmHg 07/11/2016 6:15 CDT Pulse SpO2 69 /min SpO2 96 % 07/11/2016 6:13 CDT Peripheral Pulse Rate 73 /min Respiratory Rate 16 /min SpO2 93 % LOW Systolic Blood Pressure 169 mmHg >HHI Diastolic Blood Pressure 81 mmHg 07/11/2016 5:17 CDT Temperature Core 36.7 DegC Peripheral Pulse Rate 71 /min Respiratory Rate 20 /min SpO2 98 % Systolic Blood Pressure 186 mmHg >HHI Diastolic Blood Pressure 87 mmHg Mean Arterial Pressure 120 mmHg , SpO2 07/11/2016 6:30 CDT SpO2 96 % 07/11/2016 6:15 CDT SpO2 96 % 07/11/2016 6:13 CDT SpO2 93 % LOW 07/11/2016 5:17 CDT SpO2 98 % . General: Alert and no acute distress. Skin: Warm and no rash. Head: Normocephalic and atraumatic. Neck: No JVD. Ears, nose, mouth and throat: Oral mucosa moist and no pharyngeal erythema or exudate. Cardiovascular: Regular rate and rhythm, No murmur and No edema. Respiratory: Lungs are clear to auscultation, respirations are non-labored, breath sounds are equal and Symmetrical chest wall expansion. Gastrointestinal: Soft, LLQ TTP., Guarding: Negative, Rebound: Negative, Bowel sounds: Normal, Trauma: Negative and Signs: McBurney's negative, Psoas negative, Ruiz's negative, Ladd's negative, Rovsing's negative. Back: Nontender and Normal alignment. Neurological: Alert and oriented to person, place, time, and situation. Psychiatric: Cooperative and appropriate mood & affect. Medical Decision Making Rationale:Pn is well controlled in ER. Radiologist called to advise me that in addition to the CT findings listed below, pt needs to have ovarian torsion ruled out. We do not have U/S at this facility so the pt will be transferred. Discussed case with Dr. Blackmon at [facility] who agreed to acceptthe pt for transfer. . OrdersLaunch Order Profile (Selected) Inpatient Orders Ordered Peripheral IV: Saline flush: 10 mL, IV Push, PRN, PRN: Maintain IV access Canceled (Exam Replaced) CT Abdomen w/o contrast: Completed Automated Diff-5 Part: CBC (includes Auto Differential): CMP: Lipase Level: Urinalysis with Culture if Indicated: Zofran: 4 mg, 2 mL, IV Push, Once morphine: 4 mg, 1 mL, IV Push, Once Completed (Final) CT Stone Protocol: Documented Medications Documented Januvia: 50 mg, PO, Daily Lantus: 22 units, Subcut., Daily amLODIPine: PO, Daily glipiZIDE: 10 mg, PO, Daily metoprolol: 75 mg, PO, Daily. Results review:Lab results : Lab View 07/11/2016 5:55 CDT Hgb 14.8 g/dL Hct 42.9 % WBC 13.6 x10(9)/L HI RBC 5.11 x10(12)/L HI MCV 84.0 fL RDW 12.4 % Platelet 111 x10(9)/L LOW Neutro Absolute 11.86 10(9)/L HI Lymph Absolute 0.84 x10(9)/L LOW [place] Absolute 0.81 x10(9)/L Eos Absolute 0.12 x10(9)/L Baso Absolute 0.02 x10(9)/L Sodium Lvl 138.3 mM/L Potassium Lvl 4.0 mmol/L Chloride 102 mmol/L CO2 24.2 mmol/L AGAP 12 mmol/L Alkaline Phosphatase 83 U/L Glucose Lvl 227 mg/dL HI Creatinine 1.97 mg/dL HI EGFR (MDRD) 26 mL/min/1.73m2 LOW EGFR (MDRD) 32 mL/min/1.73m2 LOW BUN 28 mg/dL HI Calcium Lvl 9.6 mg/dL Protein Total 7.6 g/dL Albumin Lvl 4.6 g/dL AST 19 unit/L ALT 18 unit/L Bili Total 0.9 mg/dL Lipase Lvl 37.2 U/L 07/11/2016 5:37 CDT UA Color Yellow UA Clarity Clear UA Spec Grav 1.015 UA pH 5.5 UA Protein Negative mg/dL UA Glucose Negative mg/dL UA Ketones Negative mg/dL UA Bili Negative UA Urobilinogen 0.2 mg/dL UA Blood Negative UA Nitrite Negative UA Leuk Est Negative UR WBC None Seen /HPF UR RBC None Seen /HPF UR Squamous Epi Cells 11-20 /HPF UR Bacteria Present UR Mucous Present . Radiology results:Radiologist's interpretation: : Radiology 07/11/2016 6:[address] Stone Protocol Report , Reason For Exam LLQ abd pain. L flank pain Report 11-Jul-2016 06:11:00 Exam: CT ABDOMEN wo & PELVIS wo Indications: LLQ abd pain. L flank pain 11-Jul-2016 06:57 CA EXAM: CT scan of the Abdomen and Pelvis without IV contrast COMPARISON: None. IMPRESSION: Large, multiloculated cystic mass in the region of the right adnexa. Given the mass is slightly midline in location, secondary ovarian torsion cannot be excluded. Findings discussed with Ara Cavanaugh PA-C ([phone]) at 0695 FINDINGS: There is a large, multiloculated cystic mass within the region of the right adnexa. This measures approximately 13.6 x 10.1 x 10.7 cm. Lesion is located slightly midline, and given the, ovarian torsion cannot be excluded. Small amount of free fluid within the pelvis. No renal stones identified. The liver, spleen, kidneys, adrenal glands, and pancreas are negative on this noncontrast exam. The bowel is nonobstructed. Colonic diverticulosis. Free fluid is adjacent to the sigmoid colon inferiorly, though no definite inflammatory findings to suggest diverticulitis. Normal appendix. Minimal bibasilar atelectasis. Minimal arterial calcifications. Remainder negative. Blair Vogel MD [phone] 11-Jul-2016 06:57 . Impression and Plan Diagnosis Pain Abdominal L Lower Quadrant (LLQ) (Discharge, Medical) Leukocytosis (Discharge, Medical) Abnormal CT Abdomen (Discharge, Medical) Plan Condition: Stable. Disposition: Patient care transitioned to: Dr. Blackmon. Electronically Signed By: ARA CAVANAUGH PA-C On: 07/11/2016 07:11 AM Co-Signed By: PRICILA RUIZ MD On: 07/12/2016 06:37 PM Source: [employer] Document Id: [id number]} Pedro Madden R.N. - 07/11/2016 6:16 AM CDT ED Pain Assessment ED Pain Assessment Entered On: 07/11/2016 6:17 CDT Performed On: 07/11/2016 6:16 CDT by PEDRO MADDEN RN Pain Assessment Pain Symptoms : Yes PEDRO MADDEN RN - 07/11/2016 6:16 CDT Pain Scale Pain Scale Verbal 0-10 : Open PEDRO MADDEN RN - 07/11/2016 6:16 CDT Pain Pain Assessment Grid Pain 1 Location : Flank Laterality : Left Intensity : 5 PEDRO MADDEN RN - 07/11/2016 6:16 CDT Source: [employer] Document Id: [id number] CDT!11 Pedro Madden R.N. - 07/11/2016 5:57 AM CDT ED Treatments and Procedures ED Treatments and Procedures Entered On: 07/11/2016 5:57 CDT Performed On: 07/11/2016 5:57 CDT by PEDRO MADDEN RN Peripheral IV Peripheral IV Assess/Intervention Grid Peripheral IV #1 IV Activity : Start Number of Attempts : 1 Date of Insertion : 07/11/2016 CDT IV Site : Antecubital Laterality : Right Catheter Size : 18 Site Condition : No complications Dressing/ Activity : Dry, Intact, Transparent Flow/ Patency : No complications PEDRO MADDEN RN - 07/11/2016 5:57 CDT Source: [facility] POWERCHART Document Id: [id number] CDT!13 Pedro Madden R.N. - 07/11/2016 5:39 AM CDT ED Primary Assessment Document Has Been Updated ED Primary Assessment Entered On: 07/11/2016 5:41 CDT Performed On: 07/11/2016 5:39 CDT by PEDRO MADDEN RN Reason For Visit (As Of: 07/11/2016 05:41:03 CDT) Diagnoses(Active) Flank pain Date: 07/11/2016 ; Diagnosis Type: Reason For Visit ; Confirmation: Complaint of ; Clinical Dx: Flank pain ; Classification: Medical ; Clinical Service: Emergency medicine ; Code: PNED ; Probability: 0 ; Diagnosis Code: [id number] Triage Chief Complaint Description : see triage note Mode of Arrival ED : Private vehicle Track : Medical Languages : Guinean Treatments Prior to Arrival : Acetaminophen Is Patient Female and 13-50 no hysterectomy : No EPDRO MADDEN RN - 07/11/2016 5:39 CDT Pain Assessment Pain Symptoms : Yes PEDRO MADDEN RN - 07/11/2016 5:39 CDT Respiratory Airway : Patent Respirations : Unlabored Respiratory Pattern : Regular PEDRO MADDEN RN - 07/11/2016 5:39 CDT Cardiovascular Heart Rhythm : Regular Skin Color : Normal for ethnicity Skin Description : Normal Skin Temperature : Warm PEDRO MADDEN RN - 07/11/2016 5:39 CDT Neurological Last Well Time Known : Not applicable Level of Consciousness : Alert Orientation : Oriented x 3 Characteristics of Speech : Clear PEDRO MADDEN RN - 07/11/2016 5:39 CDT ED Psychosocial Affect/Behavior : Cooperative, Appropriate, Anxious Domestic Abuse Concerns : None Behavioral Health Screen/Safety Assmt : No PEDRO MADDEN RN - 07/11/2016 5:39 CDT Gastrointestinal Nutrition ED : Adequate PEDRO MADDEN RN - 07/11/2016 5:39 CDT Musculoskeletal Fall Prevention Education Provided : NA PEDRO MADDEN RN - 07/11/2016 5:39 CDT Social Habits Exposure to Tobacco Smoke : Care provider denies smoking in home Smoking Status : Never smoker Tobacco 2A : No Tobacco Use/Currently Using : No Tobacco Use/Last 30 Days : No Tobacco Use/Last 12 months : No Alcohol Use for AUDIT tool : No PEDRO MADDEN RN - 07/11/2016 5:39 CDT Recreational Drug Use Grid Drug Use : None PEDRO MADDEN RN - 07/11/2016 5:39 CDT Source: [employer] Document Id: [id number] CDT!43 Pedro Madden R.N. - 07/11/2016 5:17 AM CDT ED Triage Assessment Document Has Been Updated ED Triage Assessment Entered On: 07/11/2016 5:25 CDT Performed On: 07/11/2016 5:17 CDT by PEDRO MADDEN RN Reason For Visit (As Of: 07/11/2016 05:25:53 CDT) Diagnoses(Active) Flank pain Date: 07/11/2016 ; Diagnosis Type: Reason For Visit ; Confirmation: Complaint of ; Clinical Dx: Flank pain ; Classification: Medical ; Clinical Service: Emergency medicine ; Code: PNED ; Probability: 0 ; Diagnosis Code: [id number] Triage Chief Complaint Description : is having lower left abdominal pain that wraps to the back. started about 0400 today. thinks may be passing a kidney stone. was seen aout 1 month ago and told may have stone. took 500mg tylenol prior to coming in but threw up. cant have ibuprofen. Information Given By : Patient, Spouse Present in Room During Exam/Procedure : Spouse Mode of Arrival ED : Private vehicle Track : Medical Languages : Guinean Patient Informed of Triage Location : Emergency department Vital Signs Assessed : Yes Treatments Prior to Arrival : Acetaminophen Is Patient Female and 13-50 no hysterectomy : No PEDRO MADDEN RN - 07/11/2016 5:17 CDT Vital Signs Temperature Core : 36.7 DegC(Converted to: 98.1 DegF) Peripheral Pulse Rate : 71 /min Respiratory Rate : 20 /min Systolic Blood Pressure : 186 mmHg (>HHI) Diastolic Blood Pressure : 87 mmHg NIBP Mean : 120 mmHg SpO2 : 98 % Oxygen Therapy : Room air PEDRO MADDEN RN - 07/11/2016 5:17 CDT Pain Assessment Pain Symptoms : Yes PEDRO MADDEN RN - 07/11/2016 5:17 CDT Pain Scale Pain Scale Verbal 0-10 : Open PEDRO MADDEN RN - 07/11/2016 5:17 CDT Pain Pain Assessment Grid Pain 1 Location : Flank Laterality : Left Intensity : 10 PEDRO MADDEN RN - 07/11/2016 5:17 CDT ED Physician Notification Time ED Physician Notification Time : 07/11/2016 5:24 CDT PEDRO MADDEN RN - 07/11/2016 5:17 CDT TYRONE TYRONE Level 1 : No TYRONE Level 2 : No TYRONE Level 3 : Many Vital Signs TYRONE : No PEDRO MADDEN RN - 07/11/2016 5:17 CDT DCP GENERIC CODE Tracking Acuity : 3 -Urgent Tracking Group : [facility] ED PEDRO MADDEN RN - 07/11/2016 5:17 CDT Allergy (As Of: 07/11/2016 05:25:53 CDT) Allergies (Active) amoxicillin Estimated Onset Date: Unspecified ; Created By: PEDRO MADDEN RN; Reaction Status: Active ; Category: Drug ; Substance: amoxicillin ; Type: Allergy ; Updated By: PEDRO MADDEN RN; Reviewed Date: 07/11/2016 5:25 CDT NSAIDs Estimated Onset Date: Unspecified ; Created By: PEDRO MADDEN RN; Reaction Status: Active ; Category: Drug ; Substance: NSAIDs ; Type: Allergy ; Updated By: PEDRO MADDEN RN; Reviewed Date: 07/11/2016 5:25 CDT Immunizations Immunizations Current : Yes PEDRO MADDEN RN - 07/11/2016 5:17 CDT Source: [facility] [employer] Document Id: [id number] CDT!43 documented in this encounter Miscellaneous Notes Transfer of Care - Marina Hodges RJohn. - 07/11/2016 7:39 AM CDT Patient Transfer Patient Transfer Entered On: 07/11/2016 7:42 CDT Performed On: 07/11/2016 7:39 CDT by MARINA HODGES RN Patient Condition and Reason for Transfer Reason for Transfer : Medically indicated transfer Patient's Condition for Transfer : Stable MARINA HODGES RN - 07/11/2016 7:39 CDT Transfer Requirements Transfer Requirements Met : Patient has received a medical screening, Patient will be transferred byqualified personnel and transportation equipment as required, including the use of necessary appropriate life support measures, Receiving facility has agreed to accept transfer and to provide appropriate medical treatments, Receiving facility has available space and qualified personnel for the treatment of the patient, Risks and benefits of transfer explained to patient Transferring Physician : ARA CAVANAUGH PA-C Receiving Facility Accepting Transfer : [facility] Ralf Mackenzie [place] Worker of receiving facility accepting patient : Dr. Blackmon Date/Time Transfer Accepted : 07/11/2016 7:10 CDT Accepting Physician : Dr. Blackmon Date/Time Physician Accepted Patient : 07/11/2016 7:10 CDT Nurse Receiving Report : Jen Date/Time Nurse Received Report : 07/11/2016 7:35 CDT MARINA HODGES RN - 07/11/2016 7:39 CDT Details of Transfer Mode of Transfer : Private vehicle Data Sent with Patient : Chart copy, Face Sheet (patient demographics), History and Physical, Emergency Department Notes, Progress notes, Laboratory reports, Radiology reports and copies of films as ordered (indicate which films), Nursing database, medication records, progress notes, Discharge Summary(if available), Physician Certification for Transfer form completed (keep original - send copy), Patient Consent for Transfer signed (keep original - send copy) MARINA HODGES RN - 07/11/2016 7:39 CDT Vital Signs Temperature Core : 36.5 DegC(Converted to: 97.7 DegF) Peripheral Pulse Rate : 68 /min Respiratory Rate : 16 /min Systolic Blood Pressure : 165 mmHg (>HHI) Diastolic Blood Pressure : 87 mmHg NIBP Mean : 113 mmHg BP Location : Left upper extremity SpO2 : 94 % Oxygen Therapy : Nasal cannula MARINA HODGES RN - 07/11/2016 7:39 CDT Valuables/Belongings Belongings Sent Home With : patient MARINA HODGES RN - 07/11/2016 7:39 CDT Source: Per Vices Document Id: [id number] CDT!29 Miscellaneous - Marina Hodges R.N. - 07/11/2016 7:38 AM CDT Valuables/Belongings Valuables/Belongings Entered On: 07/11/2016 7:38 CDT Performed On: 07/11/2016 7:38 CDT by MARINA HODGES RN Valuables/Belongings Belongings Sent Home With : patient MARINA HODGES RN - 07/11/2016 7:38 CDT Source: [employer] Document Id: [id number] CDT!3 Miscellaneous - Conversion, Historical Provider Ser - 07/11/2016 7:30 AM CDT Coding Summary-Paper Based CODING DATE: 08/03/2016 FINAL [facility] STATUS: * Discharged to Home or Self Care PAYOR: [employer] ADMIT DX: R10.32 Left lower quadrant pain REASON FOR VISIT DX: R10.32 Left lower quadrant pain FINAL DX: PRINCIPAL: D72.829 Elevated white blood cell count, unspecified SECONDARY: R93.5 Abnormal findings on diagnostic imaging of other abdominal regions, including retroperitoneum R10.32 Left lower quadrant pain R11.2 Nausea with vomiting, unspecified Z88.1 Allergy status to other antibiotic agents status PROCEDURES DOCTOR NAME DATE NOTE: The code number assigned matches the documented diagnosis and / or procedure in the patient's chart. However, the narrative phrase printed from the coding software may appear abbreviated, or result in slightly different terminology. Coded By: REY BARAKAT Date Saved: 08/03/2016 07:47 am Source: [facility] POWERCHART Document Id: [id number] Miscellaneous - Marina Hodges RJayda - 07/11/2016 5:09 AM CDT Facility Charge Ticket 2.0 11.0 DX Facility Charge Ticket 2.0 11.0 DX Entered On: 07/11/2016 7:39 CDT Performed On: 07/11/2016 5:09 CDT by MARINA HODGES RN Facility Charge Ticket 2.0 11.0 DX ED Other Charges : Standard ED Encounter TVL Level Translated RTF : Flank pain, Abdominal pain TVL:4 TVL Level for Facility Charge Ticket : Level 4 Arrival Mode Calc : 129 Mode of Arrival ED : Private vehicle [facility] Mode of Arrival Interpreted : Standard [facility] Process Management : None Order Management RTF : Laboratory Urinalysis with Culture if Indicated,07/11/16 05:36,ARA CAVANAUGH PA-C Completed CBC (includes Auto Differential),07/11/16 05:43,ARA CAVANAUGH PA-C Completed CMP,07/11/16 05:43,ARA CAVANAUGH PA-C Completed Lipase Level,07/11/16 05:43,ARA CAVANAUGH PA-C Completed Automated Diff-5 Part,07/11/16 06:06,ARA CAVANAUGH PA-C Completed CT / MRI / Ultrasound CT Stone Protocol,07/11/16 05:43,ARA CAVANAUGH PA-C Completed [facility] Order Management : CT/MRI/Ultrasound, Lab tests 30 Minutes Critical Care : No Nursing Notes RTF : Triage Forms ED Triage Assessment,07/11/16 05:17,PEDRO MADDEN RN Nursing Notes ED Primary Assessment,07/11/16 05:39,PEDRO MADDEN RN ED Pain Assessment,07/11/16 06:16,PEDRO MADDEN RN [facility] Nursing Assessment : Triage and 1-2 nursing assessments [facility] Disposition : Discharge [facility] Total Points with Diagnosis Control : 10 [facility] Visit Level : 08099 Level 4 Treatments Prior to Arrival : Acetaminophen MARINA HODGES RN - 07/11/2016 7:38 CDT Source: [facility] POWERCHART Document Id: [id number] CDT!18 documented in this encounter Plan of Treatment Not on filedocumented as of this encounter Procedures Procedure Name Priority Date/Time Associated Comments Diagnosis AUTOMATED Routine 07/11/2016 5:55 AM Results f or this DIFFERENTIAL, B CDT procedure ar e in the results section. CBC WITH DIFFERENTIAL, Routine 07/11/2016 5:55 AM Results for this B CDT procedure are i n the results section. LIPASE, S/P Routine 07/11/2016 5:55 AM Results f or this CDT procedure are i n the results section. COMPREHENSIVE Routine 07/11/2016 5:55 AM Results for this METABOLIC PANEL, S/P CDT procedu re are in the results section. URINALYSIS, MIDSTREAM, Routine 07/11/2016 5:37 AM Results for this WITH CULTURE IF CDT procedure ar e in INDICATED the results section. documented in this encounter Results (ABNORMAL) Automated Differential (07/11/2016 5:55 AM CDT) Patholo gist Method Time Signature Absolute 11.86 (H) 1.70 - POWERCHART Neutrophils 7.00 109L Lymphocytes 0.84 (L) 0.90 - POWERCHART 2.90 X109L Monocytes 0.81 0.30 - POWERCHART 0.90 X109L Eosinophils 0.12 0.05 - POWERCHART 0.50 X109L Absolute 0.02 0.00 - POWERCHART Basophil 0.30 X109L Specimen Anatomical Collection Method Collection Time Receive d Time (Source) Location / / Volume Laterality Blood 07/11/2016 5:55 AM 6 5:55 CDT AM CDT Ara Cavanaugh P.A.-C. LAB BLOOD ADD-ON Performing Organization Address City/State/ZIP Code Phon e Number POWERCHART (ABNORMAL) CBC with Differential (07/11/2016 5:55 AM CDT) Analysis Performed At Patho logist Time Signature Leukocytes 13.6 (H) 3.4 - 10.5 POWERCHART X109L Erythrocytes 5.11 (H) 3.90 - POWERCHART 5.03 [id number] Hemoglobin 14.8 12.0 - POWERCHART 15.5 GDL Hematocrit 42.9 34.9 - POWERCHART 44.5 MCV 84.0 81.6 - POWERCHART 98.3 FL HX RDW 12.4 11.9 - POWERCHART 15.5 Platelet Count 111 (L) 150 - 450 POWERCHART X109L Specimen (Source) Anatomical Collection Method Collection Time Re ceived Time Location / / Volume Laterality Blood 07/11/2016 5:55 AM CDT Ara Cavanaugh P.A.-C. LAB BLOOD ADD-ON Performing Organization Address City/State/ZIP Code Phon e Number POWERCHART Lipase (07/11/2016 5:55 AM CDT) P athologist Signature Lipase, S 37.2 10.0 - 73.0 POWERCHART UL Comment: Reference ranges have not been established for patients that are less than 16 years of age Specimen (Source) Anatomical Collection Method Collection Time Re ceived Time Location / / Volume Laterality Blood 07/11/2016 5:55 AM CDT Ara Cavanaugh P.A.-C. LAB BLOOD ADD-ON Performing Organization Address City/State/ZIP Code Phon e Number POWERCHART (ABNORMAL) CMP (Comprehensive Metabolic Panel) (07/11/2016 5:55 AM CDT) Patholo gist Method Time Signature Alanine 18 7 - 45 POWERCHART Amniotransferase, LD UNITL Albumin, S 4.6 3.5 - 5.0 POWERCHART GDL Alkaline 83 41 - 108 POWERCHART Phosphatase, S UL Aspartate 19 8 - 43 POWERCHART Aminotransferase UNITL (AST), S Sodium, S 138.3 135.0 - POWERCHART 145.0 MML Potassium, S 4.0 3.6 - 4.8 POWERCHART MMOLL Chloride, S 102 98 - 107 POWERCHART MMOLL CO2 Total 24.2 23.0 - POWERCHART 29.0 MMOLL BUN (Blood Urea 28 (H) 7 - 18 POWERCHART Nitrogen), S MGDL Creatinine 1.97 (H) 0.60 - POWERCHART 1.30 MGDL Calcium, Total, S 9.6 8.6 - POWERCHART 10.0 MGDL Anion Gap 12 10 - 20 POWERCHART MMOLL HXeGFR (MDRD) 26 (L) >=60 POWERCHART [id number] 2 eGFR Black/ 32 (L) >=60 POWERCHART Montenegrin [id number] 2 Bilirubin, Total, S 0.9 0.1 - 1.0 POWERCHART MGDL Total Protein, S 7.6 6.3 - 7.9 POWERCHART GDL Glucose 227 (H) 70 - 139 POWERCHART MGDL Specimen (Source) Anatomical Collection Method Collection Time Re ceived Time Location / / Volume Laterality Blood 07/11/2016 5:55 AM CDT Ara Cavanaugh P.A.-C. LAB BLOOD ADD-ON Performing Organization Address City/State/ZIP Code Phon e Number POWERCHART (ABNORMAL) Urinalysis, Midstream, with culture if indicated (07/11/2016 5:37 AM CDT) P athologist Signature Clarity Clear Clear POWERCHART HXUr Color Yellow Colorless POWERCHART Specific 1.015 POWERCHART Andrews, POCT, U Comment: Reference Range Specific Andrews: 1.000-1.035 pH, POCT, Urine 5.5 <5.0 POWERCHART Comment: Reference Range pH: 5.0-8.0 Protein, Ur, Dip Negative Negative MGDL POWERCHAR T Glucose Negative Negative MGDL POWERCHART Ketones, QL(U) Negative Negative MGDL POWERCHART HXBILIRUBIN Negative Negative POWERCHART HXBLOOD Negative Negative POWERCHART Leukocyte Esterase Negative Negative POWERCHART HXNITRITE Negative Negative POWERCHART Urobilinogen 0.2 0.2 MGDL POWERCHART Comment: Reference Range Urobilinogen: 0.2-1.0 mg/dL HXUR WBC. None Seen None Seen HPF POWERCHART HXUR RBC. None Seen None Seen HPF POWERCHART Squamous Epithelial 11-20 (A) None Seen HPF POWERC WEBBER HXUR Bacteria, Present (A) None Seen POWERCHART Mucus Present (A) None Seen POWERCHART Specimen (Source) Anatomical Collection Method Collection Time Re ceived Time Location / / Volume Laterality Urine, First 07/11/2016 5:37 AM Voided CDT Ara Cavanaugh P.A.-C. LAB URINE ORDERABLES Performing Organization Address City/State/ZIP Code Phon e Number POWERCHART documented in this encounter Visit Diagnoses Not on filedocumented in this encounter
--- OUTSIDE RECORDS SUMMARY | 2022-07-27 09:27 | XMS_ITS | Encounter Summary ---
:1960 Author Organization [facility] Address [address] [place] [id number] Care Team Providers Name Role Phone Unavailable Primary Care Provider Unavailable Encounter Details Date Type Department Care Team Description 08/21/2016 Hospital Encounter HX NO MAPPING Social History Tobacco Use Types Packs/Day Years [...] 06/26/2021 relatives? How often do you attend mu-ism or scientologist services? Patien t refused 06/26/2021 Do you belong to any clubs or organizations such as Patient refused 06/26/2021 mu-ism groups, unions, fraternal or athletic groups, or [...] minutes do you engage in exercise at is 20 min 06/26/2021 level? Stress Answer [...] place to sleep or slept in a assisted (including now)? Sex Assigned at Date Recorded Not on file documented as of this encounter Medications at Time of Discharge Medication Sig Dispensed Refills Start Date End Date administration supplies 0 02/12/2015 (INPEN, FOR NOVOLOG,) injector pen acetaminophen (OFIRMEV) Take 1,000 mg by 0 [...] cholecalciferol (VITAMIN Take 1 capsule by 0 03/0 06/201605/26/2021 D3) 2,000 Unit capsule mouth daily. glipiZIDE (GLUCOTROL) 10 Take 10 mg by mouth 0 05/26/2021 mg tablet 2 (two) times a day before breakfast and dinner. GLIPIZIDE ORAL 0 02/12/2014 05/26/2021 insulin glargine (LANTUS Inject 42 Units 0 201405/26/2021 SOLOSTAR U-100 INSULIN) under the skin as 100 unit/mL (3 mL) directed. injection metoprolol succinate Take 1 tablet by 0 [...] (JANUVIA) 50 0 04/14/2015 05/26/2021 mg tablet traZODone (DESYREL) 50 mg Take 50 mg by mouth 0 1 10/15/2015 05/26/2021 tablet 2 (two) times a day. documented as of this encounter Plan of Treatment Not on filedocumented as of this encounter Visit Diagnoses Not on filedocumented in this encounter
--- OUTSIDE RECORDS SUMMARY | 2022-07-27 09:27 | XMS_ITS | Encounter Summary ---
:1960 Author Organization [facility] Address [address] [place] [address] Care Team Providers Name Role Phone Unavailable Primary Care Provider Unavailable Encounter Details Date Type Department Care Team Description 07/13/2016 Hospital Encounter HX [facility] Ashley Hercules M.D. Social History Tobacco Use Types Packs/Day Years [...] How often do you attend confucianist or oriental orthodox services? Patien t refused [...] place to sleep or slept in a halfway (including now)? Sex Assigned at Date Recorded Not on file documented as of this encounter Last Filed Vital Signs Vital Sign Reading Time Taken Comments Blood Pressure 120/70 07/13/2016 2:38 PM CDT Pulse - - Temperature - - Respiratory Rate - - Oxygen Saturation - - Inhaled Oxygen Concentration - - Weight 94.4 kg (208 lb 1.8 oz) 07/13/2016 2:38 PM CDT Height 160 cm (5' 2.99) 07/13/2016 2:38 PM CDT Body Mass Index 36.88 07/13/2016 2:38 PM CDT documented in this encounter Medications at Time [...] mg tablet documented as of this encounter Progress Notes Ashley Cohn M.D. - 07/13/2016 4:48 PM CDT Consultation for Ovarian Mass CHIEF COMPLAINT/REASON FOR VISIT ER Follow Up HISTORY OF PRESENT ILLNESS: This patient is a 55 year old [id number] female that presents for evaluation of ovarian cyston US. She has the following issues she would like to discuss: 1. Ovarian Cyst- Seen in ER for abdominal pain that has now resolved. CT done in [facility]. OBGYN history Last pap 03/2014 and was abnormal. Her last period was approximately 02/2006 after an ablation and has had no postmenopausal bleeding She is not on hormone therapy. She has never had abnormal pap requiring [facility] or LEEP for treatment Denies vaginal discharge, irritation, pain. She is sexually active with male partner. Denies bleeding or pain with intercourse. Denies STDs. History of heavy menses. 1979 CF Female 7lbs 11 oz 1979 CF Female 3lbs 1 oz 1979 Female 8lbs 1979 Male 8lbs 12oz PAST MEDICAL/SURGICAL HISTORY Diabetes Kidney BMI 36 SURGICAL Ablation: 02/2006 Tubal Ligation 05/1987 MEDICATIONS amLODIPine: PO,Daily atorvastatin: 20 mg,1 tab(s),PO,Bedtime bisacodyl: 20 mg,4 tab(s),PO,Once glipiZIDE: 10 mg,PO,Daily insulin glargine: 22 units,Subcut.,Daily metoprolol: 75 mg,PO,Daily oxyCODONE-acetaminophen: 1 to 2 tablets,PO,q4hr,PRN (Pain) polyethylene glycol 3350: 1 packet(s),PO,Daily,Contents of 1 packet dissolved in 4-8oz of water, juice, soda, coffee, or tea sitaGLIPtin: 50 mg,PO,Daily ALLERGIES amoxicillin NSAIDs SOCIAL HISTORY Date Time: 07/13/2016 14:38 Tobacco: Smoking Status: Never smoker Exposure: Care provider denies smoking in home Alcohol: Use: No Results Found Recreational Drugs: Use: None Type: No Results Found . 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 Denies domestic abuse. FAMILY HISTORY Mother: Diabetes, Hypertension SYSTEMS REVIEW GENERAL: no chills, no sweats, no fatigue EENT: no blurred vision, no double vision, no eye pain, no sinus problems, no hoarseness, no difficulty swallowing, no mouth sores, no diminished hearing, no ringing in ears, no enlarged glands PULMONARY: no short of breath, no cough, no wheezing, no sputum, no hemoptysis CARDIAC: no chest pain, no chest pressure, no rapid beating, no irregular beating, no dependent edema, pain in calves, no shortness of breath with exertion BREASTS: no nipple discharge, no breast lumps, no breast tenderness, no other changes GI: no heartburn, no nausea, no vomiting, no stomach trouble, no constipation, no diarrhea, no bloodin BMs, no change in BMs REPRODUCTIVE: no menstrual abnormalities, no abnormal vaginal bleeding, no vaginal discharge or pelvic pain : no burning/pain with urination, +urinary incontinence MUSCULOSKELETAL: no joint or muscle problems SKIN: no skin rashes, no skin sores, no change in moles NEURO: no significant headaches, no slurred speech, no seizures, no dizziness, no loss of consciousness, no memory loss ENDOCRINE: no excessive thirst, no excessive bruising. PSYCH: no depression or anxiety Result type: US Pelvic And Endovaginal Result date: July 11, 2016 9:44 CDT Result status: Auth (Verified) Result title: US Pelvic And Endovaginal Performed by: FRED FORBES(R), R.D.M.S. on July 11, 2016 9:44 CDT Verified by: MISAEL ACKERMAN on July 11, 2016 11:57 CDT Encounter info: [id number], [facility], Emergency, 07/11/2016 - 07/11/2016 * Final Report * Reason For Exam pain, r/o ovarian torsion, per CT report Report 11-Jul-2016 09:45:00 Exam: US Pelvis with Transvaginal Indications: pain, r/o ovarian torsion, per CT report 11-Jul-2016 11:57 [facility] EXAM: US Pelvis with Transvaginal COMPARISON: CT of the abdomen and pelvis performed earlier today. IMPRESSION: Large right ovarian mass should represent ovarian cystadenoma or cystadenocarcinoma. Nothing to suggest right ovarian torsion on this study. Left ovary not visualized. FINDINGS: As seen on the comparison CT there is a large cystic mass in the right adnexa arising the right ovary. There are septations and some vascularity associated with this mass which likely represents an ovarian cystadenoma or cystadenocarcinoma. Arterial and venous waveforms are seen within the right adnexa feeding and draining this ovary/mass, however given the size and extent of the mass it is difficult to clearly separate the ovary from the mass. Nothing to suggest right ovarian torsion. Left ovary was not visualized sonographically. Small volume of pelvic free fluid. The uterus and endometrium were sonographically unremarkable. Findings discussed with the ordering provider via telephone at 11:55 AM. Aniceto Ackerman MD [phone] 11-Jul-2016 11:57 Signature Line Final Dictated: 07/11/2016 11:57 am MISAEL ACKERMAN Signed (Electronic Signature): 07/11/2016 11:57 am Transcribed by: ROD Technologist: FRED FORBES Last Mammogram: 03/2014 Exercises: twice weekly BLOOD PRESSURE Systolic Blood Pressure: 120 Diastolic Blood Pressure: 70 MEASUREMENTS Height: 160 Actual Weight: 94.4 Body Mass Index: 36.88 PHYSICAL EXAMINATION GENERAL: Patient is in no distress. IMPRESSION/REPORT/PLAN 1. Ovarian mass- Ca125 pending. Offered Laparoscopic BSO vs RSO in [place]. Offered surgical management in [place]. 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 If benign Ralf Mackenzie can perform her surgery. She is concerned about the risk of cancer and desires surgery in [place]. 2. Need pap records from [facility]. Then annual exam and pap if indicated. 3. Follow up for weight loss and incontinence 4. Mammo, Colonoscopy ordered. Total 30 minutes with 30 minutes spent counseling and coordinating care. Electronically Signed By: ASHLEY COHN MD On: 07/13/2016 05:07 PM Source: [employer] Document Id: [id number] documented in this encounter Miscellaneous Notes Miscellaneous - Ashley Cohn M.D. - 07/13/2016 5:08 PM CDT Ambulatory Patient Summary [address] [place], [place] [id number] Visit Information Name: ANGELES MORALES [facility] Number: [id number] Current Date: 07/13/2016 17:08:13 Physicians Attending Provider: ASHLEY COHN MD Primary Care Provider: PCP, ELSEWHERE ANGELES MORALES PEDRO has been given the following list of follow-up instructions, medication list, and patient education materials: Follow-up Instructions Your Medications Here is a list of your medications. It is important to take your medications as directed. Use a pillbox or chart to help remind you to take your medications. Please let your doctor or nurse know if you have problems taking your medications. Medication/Strength How to Take Indications/Special Instructions/Comments/Notes for Patient Medication Changes/Routing amLODIPine (amLODIPine) Oral, once a day atorvastatin (Lipitor 20 mg oral tablet) 1 Tablet(s), Oral, once a day (at bedtime) bisacodyl (bisacodyl 5 mg oral delayed release tablet) 4 Tablet(s), Oral, once glipiZIDE (glipiZIDE) 10 mg, Oral, once a day insulin glargine (Lantus) 22 units, Subcutaneous, once a day metoprolol (metoprolol) 75 mg, Oral, once a day oxyCODONE-acetaminophen (Percocet 5/325 oral tablet) 1 to 2 tablets, Oral, every 4 hours as needed for Pain x 3 day(s) No more than 4,000mg acetaminophen/24hrs polyethylene glycol 3350 (MiraLax oral powder for reconstitution) 1 packet(s), Oral, once a day Contents of 1 packet dissolved in 4-8oz of water, juice, soda, coffee, or tea sitaGLIPtin (Januvia) 50 mg, Oral, once a day Stop Taking the Following Medications: Medication list as of 07-13-16 17:08 Attention: If you have any medications at home that are not on this list, DO NOT take them until youcontact your provider for clarification. Give a copy of your medication list to your primary care provider. Update your medication list any time medications or doses are changed and carry your medication list at all times in case of emergency. Electronically Signed By: ASHLEY COHN MD Signed On:13-JUL-2016 15:05:35 Your Allergies & Intolerances Substance Reaction Symptoms Category Comments amoxicillin Drug NSAIDs Drug Your Problem List Problem Status Onset Comments Screening Mammogram Breast Ca Active Screening Cancer Colon Active Your Upcoming Appointments Date Time Location Provider 07/14/2016 07:45 [facility] Jennifer Faith NP 07/22/2016 14:00 [facility] Endoscopy Whit WALTERS, Jeovanny Wood Attention: Contact your local Clinic if further appointment detail needed. Ovarian Cyst The ovary is a small organ located on each side of the uterus. During each menstrual cycle a tiny egg sac forms in the ovary. If the egg is released but does not occur, this sac usually dissolves. Sometimes, the sac may fill with fluid. It then enlarges into a painful cyst. Usually the cyst will rupture or shrink on its own. In either case, the pain gradually goes away over the next 1-3 days. If the cyst does not shrink or rupture, it may cause continued pain. Home Care: ?? Rest in bed and avoid heavy exertion until you are feeling better. ?? Heat to the lower abdomen usually helps (heating pad or hot packs -- a small towel soaked in hot water). ?? You may use acetaminophen (Tylenol) or ibuprofen (Motrin, Advil) to control pain, unless another pain medicine was prescribed. [NOTE: If you have chronic liver or kidney disease or ever had a stomach ulcer or GI bleeding, talk with your doctor before using these medicines.] Follow Up: See your doctor within the next 2-3 days if your pain doesnt improve. Otherwise, follow up with yourdoctor after your next period or as directed by our staff. Get Prompt Medical Attention if any of the following occur: ?? Pain worsens or fails to respond to the above measures ?? Fever of 100.4?F (38?C) or higher, or as directed by your healthcare provider ?? Heavy vaginal bleeding (soaking one pad an hour for three hours) ?? You feel weak or dizzy ?? Fainting ?? Passage of a pink or jacobo tissue with menstrual bleeding ?? [id number] [facility], [address] [place] [address], [place] [address]. All rights reserved. This information is not intended as a substitute for professional medical care. Always follow your healthcare professional's instructions. Consider Using Patient Online Services Patient Online [...] if you dont have one. Go to [email or web address] and click on Create Your Account. Then, follow the directions to complete the online form. Youll be asked for your [facility] number which you can find at the top of this document. Your Goals/Additional instructions: This document has images extracted. Please consider using [employer] for all your patient education needs. Source: [facility] POWERCHART Document Id: [id number] Miscellaneous - Ashley Cohn M.D. - 07/13/2016 5:08 PM CDT Ambulatory Discharge Medication List [facility] [address], [address] [place], [place] [id number] Visit Information Name: ANGELES MORALES [facility] Number: [id number] Visit Date: 07/13/2016 17:08:12 Attending Provider: ASHLEY COHN MD Primary Care Provider: PCP, ELSEWHERE ANGELES MORALES has been given the following list of medications: Your Medications It is important to take your medications as directed. Use a pill box or chart to help remind you to take your medications. Please let your doctor or nurse know if you have problems taking your medications. Medication/Strength How to Take Indications/Special Instructions/Comments/Notes for Patient Medication Changes/Routing amLODIPine (amLODIPine) Oral, once a day atorvastatin (Lipitor 20 mg oral tablet) 1 Tablet(s), Oral, once a day (at bedtime) bisacodyl (bisacodyl 5 mg oral delayed release tablet) 4 Tablet(s), Oral, once glipiZIDE (glipiZIDE) 10 mg, Oral, once a day insulin glargine (Lantus) 22 units, Subcutaneous, once a day metoprolol (metoprolol) 75 mg, Oral, once a day oxyCODONE-acetaminophen (Percocet 5/325 oral tablet) 1 to 2 tablets, Oral, every 4 hours as needed for Pain x 3 day(s) No more than 4,000mg acetaminophen/24hrs polyethylene glycol 3350 (MiraLax oral powder for reconstitution) 1 packet(s), Oral, once a day Contents of 1 packet dissolved in 4-8oz of water, juice, soda, coffee, or tea sitaGLIPtin (Januvia) 50 mg, Oral, once a day Stop Taking the Following Medications: Medication list as of 07-13-16 17:08 Attention: If you have any medications at home that are not on this list, DO NOT take them until youcontact your provider for clarification. Give a copy of your medication list to your primary care provider. Update your medication list any time medications or doses are changed and carry your medication list at all times in case of emergency. Electronically Signed By: ASHLEY COHN MD Signed On:13-JUL-2016 15:05:35 Additional Information: Source: [facility] POWERCHART Document Id: [id number] Telephone Encounter - Conversion, Historical Provider Ser - 07/13/2016 3:33 PM CDT Outside Referral [place] Document Contains Addenda Addendum by DON LANZA on July 20, 2016 11:22:58 CDT Thank you for your referral.? We welcome the opportunity to be of service to your patient. We are pleased to confirm an appointment as follows: Date: 07/28/2016 Time: 2:15 pm Location: [facility], 12th Floor, [facility] [place] [address] Department: Department of Gynecologic Surgery Provider: Dr. Blair Verduzco Addendum by DON LANZA on July 15, 2016 16:25:26 CDT Thank you for your referral.? We received your appointment request and have referred it to Gynecology Surgery for review. We will send you a referral notification when we hear back from them. Addendum by DON LANZA on July 15, 2016 11:53:40 CDT Thank you for your referral.? We have left a telephone message for this patient to return a call so that we may gather additional information for registration and scheduling. If someone should contact you about the message, please direct that person to call us at [phone]. Entered by DON LANZA on July 13, 2016 15:33:53 CDT sent to [employer] The following patient has a Consult to Outside Specialist [place]: order placed. Patient Name: ANGELES MORALES Diagnosis: Unspecified ovarian cysts,ovarian cysts, Ordering Provider: ASHLEY COHN MD ; Original Order DT/TM: July 13, 2016 15:21:19 CDT ; Order: Consult to Outside Specialist [place] ; Order Details: Referral For: Adult Department: [employer] Oncology Reason For Visit: Large right ovarian mass, CA125 pending Why Needs cannot be met : NOT FOUND Why Needs cannot be met - FH : NOT FOUND Why Needs cannot be met [place] : Patient Request [place] Facility : [facility] FH : NOT FOUND Appointment Type: Surgery, Consult Appointment Type - FH: NOT FOUND Subspecialty Requested: NOT FOUND Appointment Timeline: 4-14 Days Schedule with Specific Provider, If Known: NOT FOUND Appointment has been/will be made by: My Straddle Truck Driver/Office If yes, When is appointment: NOT FOUND Arc to Process Referral : NOT FOUND Special Instructions: Large right ovarian mass, Ca 125 pending desires surgery in [place]. Mammo,Colonoscopy to be done. Pap records from [place] pending. Reason to be Sent: NOT FOUND Complex Ovarian Cyst Source: [facility] POWERCHART Document Id: [id number] Miscellaneous - Marina Escudero LSukhiPSukhiN. 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 Intake/History Entered On: 07/13/2016 14:40 CDT Performed On: 07/13/2016 14:38 CDT by MARINA ESCUDEROPJayda Intake Chief Complaint : ER follow up LMP Date : ablation Systolic Blood Pressure : 120 mmHg Diastolic Blood Pressure : 70 mmHg NIBP Mean : 87 mmHg BP Location : Left upper extremity Blood Pressure Cuff Size : Regular Height : 160 cm(Converted to: 5 ft 3 inch(es), 63 inch(es)) Actual Weight : 94.4 kg(Converted to: 208 lb 2 oz) Dosing Weight Clinic : 94.4 kg Clinic BSA : 2.05 Body Mass Index : 36.88 kg/m2 MARINA ESCUDEROPJayda - 07/13/2016 14:38 CDT General Info Information Given By : Patient Preferred Communication Mode : Verbal Languages : Pashto Is Patient Female and 13-50 no hysterectomy : No MARINA ESCUDERO L.P.N. - 07/13/2016 14:38 CDT Subjective Pain Symptoms : No MARINA ESCUDERO L.P.N. - 07/13/2016 14:38 CDT Dependent Habits Exposure to Tobacco Smoke : Care provider denies smoking in home Smoking Status : Never smoker Tobacco 2A : No Tobacco Use/Currently Using : No Tobacco Use/Last 30 Days : No Tobacco Use/Last 12 months : No MARINA ESCUDERO L.P.N. - 07/13/2016 14:38 CDT Caffeine Use Grid Caffeine Use : Current Type : Soft drinks Frequency : Daily MARINA ESCUDERO L.P.N. - 07/13/2016 14:38 CDT Recreational Drug Use Grid Drug Use : None MARINA ESCUDERO L.P.N. - 07/13/2016 14:38 CDT Source: [facility] [employer] Document Id: [id number] CDT!36 documented in this encounter Plan of Treatment Not on filedocumented as of this encounter Visit Diagnoses Not on filedocumented in this encounter
--- OUTSIDE RECORDS SUMMARY | 2022-07-27 09:27 | XMS_ITS | Encounter Summary ---
:1960 Author Organization [facility] Address [address] [place] [address] Care Team Providers Name Role Phone Unavailable Primary Care Provider Unavailable Encounter Details Date Type Department Care Team Description 07/13/2016 Hospital Encounter HX [facility] Ashley Berry M.D. Social History Tobacco Use Types Packs/Day [...] How often do you attend shinto or sabianism services? Patien t refused 06/26/2021 [...] slept in a skilled nursing (including now)? Sex Assigned at Date Recorded Not on file documented as of this encounter Last Filed Vital Signs Vital Sign Reading Time Taken Comments Blood Pressure - - Pulse - - Temperature - - Respiratory Rate - - Oxygen Saturation - - Inhaled Oxygen Concentration - - Weight - - Height 160 cm (5' 2.99) 07/13/2016 3:39 PM CDT Body Mass Index - - documented in this encounter Medications at Time of Discharge Medication Sig Dispensed Refills Start Date End Date administration supplies 0 02/12/2015 (INPEN, FOR NOVOLOG,) injector pen amlodipine besylate 5 mg. 0 02/12/201405/26 (AMLODIPINE ORAL) amLODIPine-atorvastatin Take by mouth 0 6 05/26/2021 (CADUET) 5-10 mg per daily. tablet atorvastatin calcium 10 mg. 0 02/12/2014 0803/2021 (ATORVASTATIN ORAL) cholecalciferol (VITAMIN Take 1 capsule by 0 /0 06/201605/26/2021 D3) 2,000 Unit capsule mouth daily. [...] mg tablet documented as of this encounter Miscellaneous Notes Miscellaneous - Conversion, Historical Provider Ser - 07/13/2016 11:59 PM CDT Coding Summary-Paper Based CODING DATE: 07/24/2016 FINAL [facility] STATUS: * Discharged to Home or Self Care PAYOR: Commercial Insurance ADMIT DX: REASON FOR VISIT DX: FINAL DX: PRINCIPAL: Z12.31 Encounter for screening mammogram for malignant neoplasm of breast SECONDARY: PROCEDURES DOCTOR NAME DATE NOTE: The code number assigned matches the documented diagnosis and / or procedure in the patient's chart. However, the narrative phrase printed from the coding software may appear abbreviated, or result in slightly different terminology. Coded By: JEFYR VAZQUEZ Date Saved: 07/24/2016 11:19 am Source: [facility] Document Id: [id number] documented in this encounter Plan of Treatment Not on filedocumented as of this encounter Visit Diagnoses Not on filedocumented in this encounter
--- OUTSIDE RECORDS SUMMARY | 2022-07-27 09:27 | XMS_ITS | Encounter Summary ---
:1960 Author Organization [facility] Address [address] [place] [address] Care Team Providers Name Role Phone Unavailable Primary Care Provider Unavailable Encounter Details Date Type Department Care Team Description 07/22/2016 Hospital Encounter HX [facility] ENDOSCOPY Butch Green M.D. [address] [place] [address] (Wo rk) Social History Tobacco Use [...] 06/26/2021 relatives? How often do you attend oriental orthodox or jain services? Patien t refused 06/26/2021 Do you belong to any clubs or organizations such as Patient refused 06/26/2021 oriental orthodox groups, unions, fraternal or athletic groups, or [...] place to sleep or slept in a longterm (including now)? Sex Assigned at Date Recorded Not on file documented as of this encounter Last Filed Vital Signs Vital Sign Reading Time Taken Comments Blood Pressure 138/73 07/22/2016 4:15 PM CDT Pulse - - Temperature - - Respiratory Rate - - Oxygen Saturation - - Inhaled Oxygen Concentration - - Weight - - Height 160 cm (5' 2.99) 07/22/2016 1:27 PM CDT Body Mass Index - - [...] documented as of this encounter Progress Notes Conversion, Historical Provider Ser - 07/22/2016 2:29 PM CDT NOTE [facility] [place] Patient Name: Angeles Morales PRE-PROCEDURE HISTORY AND PHYSICAL Procedure(s): Colonoscopy (07/22/2016 2:29:02 PM) Exam Date: 07/22/2016 Exam Date: 07/22/2016 Doctor: Eileen Green Patient Name: Angeles Andrew : 1960 Gender: Female HEALTH HISTORY User:[id number] Health History Obtainable:YES Chief Complaint (Purpose for visit):Screening History / Details of Present Illness: History & Physical Date (MM/DD/YY) / 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 Cardiovascular?:YES Cardiovascular diagnoses:Hyperlipidemia, Hypertension Comments: Ambulatory Infusion Pump:NO Implanted Title Vehicle Service Attendant:NO Pulmonary?:NO GI?:NO Diabetes?:YES Treated with:Diet, Insulin Injection, Oral medication Self reported blood glucose (mg/dL): Time: Comments: Genitourinary/Renal/Endocrine?:NO Neuro/musculoskeletal?:NO Cancer:NO Mental Health?:NO Miscellaneous?:NO status:Post Menopausal Recent illness, infection or exposure?:NO Infectious Disease?:NO Nutritional status?:No issues Previous surgery?:YES GI surgery: General surgery: Transplant:NO Comments:ablation, tubal Patient or family history of problems with anesthesia and sedation (Please set Alert):NO Tobacco history?:NO Alcohol history?:NO Recreational drug use?:NO Patient has a POA?:NO Anticoagulant:NO Entire health history obtained from:Patient, EMR / Patient Chart PHYSICAL EXAM User:[id number] Educational material given:YES Comment: NPO:YES NPO time:Liquid > 4 Hours, Food > 6 Hours Baseline Pain:Scale 0-10 Baseline pain level:0 Pain location (if applicable): Pain type (if applicable): Pain quality (if applicable): Onset: Baseline behavior:Calm Abdominal exam:Soft, non-distended Dental Information: Height (cm):160 Weight (kg):94.4 Heart exam:RRR without murmurs Lung exam:CTA Bilaterally Medications and Allergies reviewed and updated as necessary:YES IMPRESSION and PLAN Medications and Health history reviewed. This patient has been examined by me today and has been found to be a suitable candidate for planned procedure:07/22/2016 14:44 Consent signed:YES SEDATION ASSESSMENT Mallampati class:I ASA score:I - normal healthy patient Sedation plan:Sedation by RN Provider Signatures Eileen Green ([id number]) JAMES - 07/22/2016 14:44:15 Source[facility] Document Id: [id number] NOTE0 documented in this encounter Procedure Notes Eileen Green M.D. - 07/22/2016 2:29 PM CDT Colonoscopy [facility] [place] GI Procedure Date: 07/22/2016 2:29 PM Patient Name: Angeles Morales Age: 55 Date of : 1960 Gender: Female Procedure: Colonoscopy Providers: Ashley Bah (Ordering Provider) Pre-op Diagnoses: Screening for colorectal malignant neoplasm Post-op Diagnoses: - One 1 mm polyp at the splenic flexure. Resected and retrieved. - Diverticulosis in the sigmoid colon. - The examination was otherwise normal. Recommendation: - Repeat colonoscopy in 10 years for surveillance. Findings: A 1 mm polyp was found at the splenic flexure. The polyp was sessile. The polyp was removed with a cold biopsy forceps. Resection and retrieval were complete. Multiple small-mouthed diverticula were found in the sigmoid colon. The exam was otherwise without abnormality. Medicines: Fentanyl IV 100 mcgs, Midazolam IV 4 mgs Complications: No immediate complications. Estimated blood loss: Minimal. Procedure Details: The patient was seen, evaluated, and history reviewed. Airway and heart and lung exams were performed and were satisfactory for planned sedation care. The risks, benefits and alternatives for the procedure and sedation were discussed and informed consent was obtained. A procedural pause was conducted in the presence of assisting personnel to verify the correct patient identity and procedure to be performed. Throughout the procedure, the patient's blood pressure, pulse, and oxygen saturations were monitored continuously. The [id number] Colonoscope Serial Number [id number] was introduced under direct vision through the anus and advanced to the cecum, identified by appendiceal orifice and ileocecal valve. The colonoscopy was performed with ease. The patient tolerated the procedure well. The quality of the bowel preparation was excellent. Eileen Green, 07/22/2016 3:14:13 PM This report has been signed electronically. Number of Addenda: 0 Note Initiated On: 07/22/2016 2:29 PM Source: [facility] Document Id: [id number] documented in this encounter Nursing Notes Cyrus Otoole RJohn. - 07/22/2016 1:49 PM CDT Alex II Fall Risk Hendrich II Fall Risk Entered On: 07/22/2016 13:49 CDT Performed On: 07/22/2016 13:49 CDT by CYRUS OTOOLE RN II Fall Risk Confusion/Disorientation Hendrich : No Depression Fall Risk Hendrich : No Altered Elimination Fall Risk Hendrich : No Dizziness/Vertigo Fall Risk Hendrich : No Gender, Male Fall Risk Hendrich : No Prescribed Antiepileptics Hendrich : No Prescribed Benzodiazepines Hendrich : No Rising From Chair Fall Risk Hendrich : Able to rise in a single movement, no loss of balance with steps Fall Risk Score Hendrich II : 0 CYRUS OTOOLE RN - 07/22/2016 13:49 CDT Source: [facility] [employer] Document Id: [id number] CDT!11 documented in this encounter OR Notes Op Note - Conversion, Historical Provider Ser - 07/22/2016 2:29 PM CDT NURSE NOTE [facility] - [facility] Patient Name: Angeles Morales NURSE NOTE Procedure(s): Colonoscopy (07/22/2016 2:29:02 PM) Exam Date: 07/22/2016 Exam Date: 07/22/2016 Doctor: Eileen Green Patient Name: Angeles Morales : 1960 Gender: Female ENDO CHECK IN User:[id number] Transportation after procedure?:YES Kapok And Cotton Machine Operator location:Waiting Room Kap[employer] And Cotton Machine Operator's name:Liu [employer] Machine Operator's realtion to the patient?:Spouse Kapok And Cotton Machine Operator's Phone Number: Pager Number: Tracking ID: HEALTH HISTORY User:[id number] Health History Obtainable:YES Chief Complaint (Purpose for visit):Screening History / Details of Present Illness: History & Physical Date (MM/DD/YY) / 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 Cardiovascular?:YES Cardiovascular diagnoses:Hyperlipidemia, Hypertension Comments: Ambulatory Infusion Pump:NO Implanted Title Vehicle Service Attendant:NO Pulmonary?:NO GI?:NO Diabetes?:YES Treated with:Diet, Insulin Injection, Oral medication Self reported blood glucose (mg/dL): Time: Comments: Genitourinary/Renal/Endocrine?:NO Neuro/musculoskeletal?:NO Cancer:NO Mental Health?:NO Miscellaneous?:NO status:Post Menopausal Recent illness, infection or exposure?:NO Infectious Disease?:NO Nutritional status?:No issues Previous surgery?:YES GI surgery: General surgery: Transplant:NO Comments:ablation, tubal Patient or family history of problems with anesthesia and sedation (Please set Alert):NO Tobacco history?:NO Alcohol history?:NO Recreational drug use?:NO Patient has a POA?:NO Anticoagulant:NO Entire health history obtained from:Patient, EMR / Patient Chart PATIENT ASSESSMENT PRE-PROCEDURE User:[id number] Patient ID and Procedure verified:YES Prep taken:YES Percent of prep taken (%):100 Comments: Prep Details:YES Prep type:Miralax Stool appearance:Clear NPO:YES NPO time:Liquid > 4 Hours, Food > 6 Hours Does the patient have any advance directives:NO Advance directive information:Patient declines information Allergy band on:YES Caution band on:N/A Fall Risk?:NO Baseline Pain:Scale 0-10 Baseline pain level:0 Pain location (if applicable): Pain type (if applicable): Pain quality (if applicable): Onset: Baseline behavior:Calm Baseline orientation: Barrier to care:NO Skin assessment:Warm Respitory assessment:Clear Signs of abuse / neglect:NO Patient clothing and valuables removed?:N/A Need for prophylactic antibiotics?:NO Height (cm):160 Weight (kg):94.4 Who was assessed and educated:Patient Education and discharge material reviewed. Patient verbalized understanding:YES How does patient / family prefer to learn:Discussing, Reading Barriers to learning:None Educational material given:YES Comment: Intake Delay:NO PROCEDURE BEGIN User:[id number] Patient clothing and valuables removed?:N/A Abdominal exam:Soft, non-distended IV site patent?:YES Patient position (Skin integrity maintained, Approved by physician):Left Lateral Adjuncts used: Procedure room delay:NO RECOVERY QUESTIONS User:[id number] Recovery by Endo Required:YES Patient positively identified. Transferred by and report received from: to Siderails up, wheels locked, bed in lowest position, call blankenship in reach:YES Recovery Pain:Scale 0 - 10 Recovery pain level:0 Recovery Pain location (if applicable): Pain type (if applicable): Pain quality (if applicable): Skin assessment:Warm Abdominal exam:Soft, non-distended IV site patent?:YES DISCHARGE QUESTIONS User:[id number] Discharge Assessment:YES Level of Consciousness:Person, Place, Time, Situation Final Discharge Pain:Scale 0 - 10 Discharge pain level:0 Pain location (if applicable): Pain type (if applicable): Pain quality (if applicable): Oxygen saturation on room air >=92% or equal to pre-sedation state?:YES Discharge Assessment:YES Able to take PO fluids?:YES Swallow, cough, gag reflexes present?:YES Final abdominal exam:Soft, non-distended Passing flatus?:YES Crepitus:NO Discharge Delay:YES Delay Post-DC Criteria being met:waiting for nurse Comments: Educational Material Provided:YES Name:Colon Polyps and Cancer, General Post Endoscopy Instructions Comments: All care plan goals met:YES Discharged to:Home Patient meets discharge criteria as set by physician and approved by facility?:YES Able to ambulate independently (or at baseline)?:YES Transportation after procedure?:YES Kapok And Cotton Machine Operator location:Waiting Room Kapok And Cotton Machine Operator's name:Liu [employer] And [employer] Machine Operator's realtion to the patient?:Spouse Kapok And Cotton Machine Operator's Phone Number: Pager Number: Tracking ID: Discharge instructions?:YES Discharge instructions given to:Patient, Spouse Verbalizes understanding of discharge instructions?:YES Patient clothing and valuables returned?:YES Patient items removed: Patient clothing and valuables: Comments: Patient items returned to:Patient Discharged under the care of:Spouse 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 PLAN CARE PLAN INITIATED - APPLIES TO ALL ADMITTED PATIENTS DIAGNOSIS Potential for anxiety, barriers to learning, and communication barriers related to knowledge deficit of procedure OUTCOME Patient and family demonstrate decreased anxiety & understanding of teaching OUTCOME Able to communicate effectively with patient and family OUTCOME: Verbalized support of emotional, cultural, and spiritual needs: OUTCOME Patient will verbalize understanding of procedure and expected physiological and psychological responses OUTCOME Patient will acknowledge and demonstrate the ability with effective coping mechanisms to manage anxiety / fear OUTCOME Patient will exhibit reduced physiological manifestations of anxiety / fear DIAGNOSIS Potential for injury related to procedure, medication administration, physical positioning, skin integrity, electrical and/or radiation therapies OUTCOME Patient was free from injury from procedure, medication administration, positioning, extraneous objects, physical and electrical hazards OUTCOME Patient experiences minimal trauma from endoscope OUTCOME Patient remains stable while sedated DIAGNOSIS Potential for alteration in comfort related to procedure - pain or discomfort OUTCOME The patient will experience minimal discomfort related to procedure controlled by administration of moderate sedation and comfort measures OUTCOME The patient will experience minimal discomfort during his/her stay and with his/her procedure DIAGNOSIS Potential for alteration in cardiac and respiratory function due to sedation or anesthesia OUTCOME Patient maintained cardio-pulmonary status according to patient norm (baseline) OUTCOME Patient will maintain a clear airway with adequate gas exchange OUTCOME Patient's cardiovascular status will be maintained OUTCOME Patient's airway remains clear and unobstructed Oxygen Time Method Rate Entered By Notes 14:41:11 Oxygen 2 liters/min [id number] No Notes Taken Medications Time Medication Dose Entered By Notes 14:48:41 Fentanyl IV 100 mcg Total: 100 mcg [id number] 14:47:30 Midazolam IV 4 mg Total: 4 mg [id number] No Notes Taken Quan Score Time Motor Resp BP LOC O2 Entered By Total Score Notes 15:50:00 2 2 2 2 2 [id number] 10 15:18:33 2 2 2 1 2 [id number] 9 15:09:19 2 2 2 1 1 [id number] 8 15:05:29 2 2 2 1 1 [id number] 8 15:00:51 2 2 2 1 1 [id number] 8 14:55:25 2 2 2 1 1 [id number] 8 14:48:53 2 2 2 1 1 [id number] 8 14:08:08 2 2 2 2 2 [id number] 10 No Notes Taken Vitals Time BP HR RESP O2 Sat CO2 Entered By 14:09:45 166/72 53 20 100 - [id number] No Notes Taken PROCEDURE LOG Time Data Entered By 16:03:00 IV Fluids Infused (mL) : 1000 [id number] 16:03:00 IV discontinued : IV site assessment : Dry, intact,-, Catheter Intact : YES, Comments : - [id number] 15:07:00 Notes: polyp removed from splenic flexure C307594 14:41:31 PAUSE: Immediately prior to the administration of sedation/anesthetic, a quick look was performed to assess the vital signs and oxygen saturation : YES [id number] 14:41:29 TIME-OUT / [place] Protocol : ALL members of the procedural team verify CORRECT PATIENT, PROCEDURE, CONSENT, [id number], DOCUMENTATION SYSTEMS, SAFETY PRECAUTIONS, EQUIPMENT CHECKED AND AVAILABLE, INSTRUMENTATION, SUPPLIES, SPECIAL REQUIREMENTS : YES, Staff members performing Time-Out : Physician,Sedation RN,Crtts,-, Additional verification : - [id number] 14:41:07 Cardiac rhythm : Normal Sinus Rhythm [id number] 14:08:35 IV started : Attempts : 1, IV site : Right forearm,-, Size : 20 gauge, Comments : - [id number] 13:59:36 Temperature : Baseline Temperature (C) : 36.7, Temp reading location : Forehead I793535 Specimens Collected Jar Sample Type Procedure Lab Type Location Indication Entered By 1 Polypectomy Colonoscopy Histology Colon - Splenic flexure Polyp [id number] Time Tracking Time Event Entered By 16:45:00 Discharged F995714 15:17:56 Bedded (Recovery) [id number] 15:10:52 LOWER Scope Out [id number] 14:54:21 LOWER Scope In D154821 14:54:00 Extent Reached [id number] 14:40:44 MD in Room [id number] 14:40:43 Patient Roomed [id number] IV Fuild Time Type Amount Infused Entered By 14:08:14 Lactated Ringers IV 1000 ml Total: 1000 ml [id number] No Notes Entered Provider Signatures Gisele Juarez, ([id number]) ESIGNED - 07/22/2016 17:05:54 Tiffanie Strong ([id number]) ESIGNED - 07/22/2016 15:11:07 Cyrus Otoole ([id number]) ESIGNED - 07/22/2016 14:16:43 [facility]: [facility] Document Id: [id number] NOTE0 documented in this encounter Miscellaneous Notes Miscellaneous - Conversion, Historical Provider Ser - 07/22/2016 4:45 PM CDT Coding Summary-Paper Based CODING DATE: 08/03/2016 FINAL [facility] STATUS: * Discharged to Home or Self Care PAYOR: Commercial Insurance APC DESCRIPTION 5312 Level 2 Lower GI Procedures ADMIT DX: REASON FOR VISIT DX: FINAL DX: PRINCIPAL: Z12.11 Encounter for screening for malignant neoplasm of colon SECONDARY: D12.3 Benign neoplasm of transverse colon K57.30 Diverticulosis of large intestine without perforation or abscess without bleeding E11.9 Type 2 diabetes mellitus without complications Z79.4 FPC (current) use of insulin PYMT PROC APC STAT DESCRIPTION DOCTOR NAME DATE 43687 5312 T COLONOSCOPY W/BIOPSY EILEEN GREEN MD 07/22/2016 SINGLE/MULTIPLE PT COLORECTAL CANCER SCREENING TEST; CONVERTED TO DIAGNOSTIC TEST OR OTHER PROCEDURE NOTE: The code number assigned matches the documented diagnosis and / or procedure in the patient's chart. However, the narrative phrase printed from the coding software may appear abbreviated, or result in slightly different terminology. Coded By: JESSIE HERNANDEZ Date Saved: 08/03/2016 09:24 am Source: [employer] Document Id: [id number] documented in this encounter Plan of Treatment Not on filedocumented as of this encounter Visit Diagnoses Not on filedocumented in this encounter
--- OUTSIDE RECORDS SUMMARY | 2022-07-27 09:27 | XMS_ITS | Encounter Summary ---
:1960 Author Organization [facility] Address [address] [place] [address] Care Team Providers Name Role Phone Unavailable Primary Care Provider Unavailable Encounter Details Date Type Department Care Team Description 08/08/2016 Hospital Encounter HX [facility] ED Christian Mcclure Jr., M.D. [address] [place], [place] [phone] (Wo rk) Social History Tobacco Use Types [...] How often do you attend restoration or congregational services? Patien t refused 06/26/2021 Do you [...] or slept in a long-term (including now)? Sex Assigned at Date Recorded Not on file documented as of this encounter Last Filed Vital Signs Vital Sign Reading Time Taken Comments Blood Pressure 177/82 08/08/2016 6:57 AM CDT Pulse 70 08/08/2016 6:57 AM CDT Temperature - - Respiratory Rate 20 08/08/2016 6:57 AM CDT Oxygen Saturation - - Inhaled Oxygen Concentration - - Weight - - Height - - Body Mass Index - - documented in this encounter Discharge Summaries Akbar Lopez R.N. - 08/08/2016 7:10 AM CDT ED Discharge Instructions [facility] [address] [address] Name: ANGELES ALCANTARA Date of : 1960 12:00 AM Visit Date: 08/08/2016 3:57 AM [facility] Number: [id number] Address: [address] [place] [phone] Primary Care Provider: PCP, VICTORIA IMPORTANT: [facility] in [place] would like to thank you for allowing us to assist you with your healthcare needs. The following includes patient education materials and informationregarding your injury/illness. Diagnosis: Follow-Up Instructions: Your Upcoming Appointments: Date Time [...] if you dont have one. Go to [email or web address] and click on Create Your Account. Then, follow the directions to complete the online form. Youll be asked for your [facility] number which you can find at the top of this document. ED Tests and Procedures: Order Status Glucose POC. Completed CBC (includes Auto Differential) Completed Comprehensive Metabolic Panel Completed C-Reactive Protein Completed Urinalysis with Microscopic Completed CT Abdomen/Pelvis w/o contrast Completed Lipase Level Completed Oxygen - ED Ordered Automated Diff-5 Part Completed Discharge Prescriptions & Home Medications: Medication/Strength Dose Route Frequency Indications/Special Instructions/Comments/Notes oxyCODONE-acetaminophen (oxyCODONE-acetaminophen 5 mg-325 mg oral tablet) 1 tab(s) Oral every 6 hours azithromycin (Azithromycin 5 Day Dose Pack) Oral atorvastatin (Lipitor 20 mg oral tablet) 20 mg Oral once a day (at bedtime) insulin glargine (Lantus) 22 units Subcutaneous once [...] arrange a ride home with a responsible republican. I, ANGELES ALCANTARA , or responsible republican have received this information and my questions have been answered. I have discussed any challenges I see with this plan with the nurse or physician. Patient Signature or Responsible Democrat/Relationship Date Time Provider Signature Date Time IMPORTANT: [...] arrange a ride home with a responsible republican. I, ANGELES ALCANTARA , or responsible republican have received this information and my questions have been answered. I have discussed any challenges I see with this plan with the nurse or physician. Patient Signature or Responsible Democrat/Relationship Date Time Provider Signature Date Time Source: Yorn Document Id: [id number] Akbar Lopez R.N. - 08/08/2016 7:10 AM CDT ED Depart Summary [facility] Emergency Department Clinical Discharge Summary PERSON INFORMATION Name ANGELES ALCANTARA Age 55 Years 1960 12:00 AM Sex Female Language Persian PCP PCP, ELSEWHERE Marital Status Visit Id Visit Reason Abdominal pain; abdominal pain Specialty Enc Type Emergency Med Service Emergency Medicine Referred by Track Group [facility] ED Discharge 08/08/2016 7:04 AM Tracking Id [id number] Checkout 08/08/2016 7:04 AM Checkin 08/08/2016 3:57 AM Acuity 4 -Less Urgent Dispo Type Disch/Trans ShortTerm Gen Hosp-Inpt Care Arrival 08/08/2016 3:57 AM Reg Status Complete LOS 000 03:07 Address: [address] [place] [phone] Comment: PROVIDER INFORMATION Provider Role Provider Contact Time CHRISTIAN MCCLURE MD ED Provider 08/08/16 04:06 AKBAR LOPEZ DIRECTOR INFORMATION SECURITY Nurse 08/08/16 04:06 DIAGNOSIS Comment: PATIENT EDUCATION INFORMATION Instructions: Follow up: Source: [facility] POWERCHART Document Id: [id number] documented in this encounter Medications at Time [...] 0 02/12/201405/26 (LOPRESSOR) 50 mg tablet SITagliptin (OCTUVIA) 50 Take 50 mg by mouth 0 05/26/2021 mg tablet daily. SITagliptin (JANUVIA) 50 0 04/14/2015 05/26/2021 mg tablet documented as of this encounter ED Notes Akbar Lopez R.N. - 08/08/2016 7:09 AM CDT ED Treatments and Procedures ED Treatments and Procedures Entered On: 08/08/2016 7:09 CDT Performed On: 08/08/2016 7:09 CDT by AKBAR LOPEZ RN Oxygen Therapy Oxygen Start Time : 08/08/2016 4:45 CDT Oxygen Therapy : Nasal cannula Oxygen Stop Time : 08/08/2016 7:04 CDT Oxygen Flow Rate : 2 L/min AKBAR LOPEZ RN - 08/08/2016 7:09 CDT Source: Yorn Document Id: [id number] CDT!6 Akbar Lopez R.N. - 08/08/2016 7:05 AM CDT ED Disposition Summary ED Disposition Summary Entered On: 08/08/2016 7:06 CDT Performed On: 08/08/2016 7:05 CDT by AKBAR LOPEZ RN ED Disposition Summary Present in Room During Exam/Procedure : EMS, Spouse Mode of Discharge : Stretcher Transportation : Ground ambulance Nurse Receiving Report : Ce Date/Time Nurse Received Report : 08/08/2016 7:06 CDT Printed Discharge Instructions Given to Patient : No Reason Discharge Instructions Not Given : transferred to [facility] Patient Status at Discharge from ED : AKBAR Mishra RN - 08/08/2016 7:05 CDT Source: Yorn Document Id: [id number] CDT!10 Akbar Lopez R.N. - 08/08/2016 6:43 AM CDT ED Pain Assessment ED Pain Assessment Entered On: 08/08/2016 6:43 CDT Performed On: 08/08/2016 6:43 CDT by AKBAR LOPEZ RN Pain Assessment Pain Symptoms : Yes AKBAR LOPEZ RN - 08/08/2016 6:43 CDT Pain Scale Pain Scale Verbal 0-10 : Open AKBAR LOPEZ RN - 08/08/2016 6:43 CDT Pain Pain Assessment Grid Pain 1 Location : Abdomen Intensity : 4 AKBAR LOPEZ RN - 08/08/2016 6:43 CDT Source: Yorn Document Id: [id number] CDT!10 Christian Mcclure Jr., M.D. - 08/08/2016 6:12 AM CDT Lower abdominal pain Patient: ANGELES ALCANTARA Age: 55 years Sex: Female : 1960 Author: CHRISTIAN MCCLURE MD Attachments: None Basic Information Additional information: Chief Complaint from Nursing Triage Note : Chief Complaint Description 08/08/2016 4:00 CDT Chief Complaint Description Pt c/o LLQ abdominal pain that started at 0300 suddenly. Pt reports having a mass on ovary that is scheduled for surgery on 08/21. Pt took one percocet at 0315. . History of Present Illness The patient presents with Pt here with severe left lower quadrant abdominal pain that started at midnight tonight. She has a known history of ovarian mass that has caused this pain and took her oxycodone to help with the pain 1 hour before arrival without improvement. Denies nausea or vomiting, fever chills, diarrhea or constipation.. Review of Systems Constitutional symptoms: Negative except as documented in HPI. Skin symptoms: Negative except as documented in HPI. Eye symptoms: Negative except as documented in HPI. ENMT symptoms: Negative except as documented in HPI. Respiratory symptoms: Negative except as documented in HPI. Cardiovascular symptoms: Negative except as documented in HPI. Gastrointestinal symptoms: Negative except as documented in HPI. Genitourinary symptoms: Negative except as documented in HPI. Musculoskeletal symptoms: Negative except as documented in HPI. Neurologic symptoms: Negative except as documented in HPI. Psychiatric symptoms: Negative except as documented in HPI. Endocrine symptoms: Negative except as documented in HPI. Hematologic/Lymphatic symptoms: Negative except as documented in HPI. Allergy/immunologic symptoms: Negative except as documented in HPI. Additional review of systems information: All other systems reviewed and otherwise negative. Health Status Allergies: Allergic Reactions (Selected) Severity Not Documented Amoxicillin- No reactions were documented. NSAIDs- No reactions were documented.. Past Medical/ Family/ Social History Medical history: No active or resolved past medical history items have been selected or recorded., Type 2 diabetes Ovarian mass. Surgical history: Colonoscopy ([id number]) on 07/22/2016 at 55 Years. Pap smear ([id number]) on 03/11/2014 at 53 Years. Ablation ([id number]) in 2005 at 45 Years. 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 Family history: Not significant. Social history: Alcohol use: Denies, Tobacco use: Denies, Drug use: Denies. Problem list: All Problems Screening Cancer Colon / Z12.11 / Confirmed Screening Mammogram Breast Ca / Z12.31 / Confirmed. Physical Examination Vital Signs: Vital Signs 08/08/2016 6:08 CDT Peripheral Pulse Rate 79 /min Respiratory Rate 20 /min SpO2 95 % Systolic Blood Pressure 166 mmHg >HHI Diastolic Blood Pressure 82 mmHg 08/08/2016 5:32 CDT Peripheral Pulse Rate 83 /min SpO2 95 % Systolic Blood Pressure 180 mmHg >HHI Diastolic Blood Pressure 88 mmHg 08/08/2016 5:25 CDT Temperature Core 36.4 DegC LOW Peripheral Pulse Rate 77 /min Respiratory Rate 18 /min SpO2 95 % Systolic Blood Pressure 169 mmHg >HHI Diastolic Blood Pressure 87 mmHg BP Location Right upper 08/08/2016 5:02 CDT Peripheral Pulse Rate 80 /min Respiratory Rate 18 /min SpO2 98 % Systolic Blood Pressure 167 mmHg >HHI Diastolic Blood Pressure 92 mmHg >HHI 08/08/2016 4:50 CDT Peripheral Pulse Rate 75 /min SpO2 96 % Systolic Blood Pressure 177 mmHg >HHI Diastolic Blood Pressure 93 mmHg >HHI 08/08/2016 4:00 CDT Temperature Core 36.4 DegC LOW Peripheral Pulse Rate 76 /min Respiratory Rate 22 /min HI SpO2 96 % Systolic Blood Pressure 193 mmHg >HHI Diastolic Blood Pressure 93 mmHg >HHI Mean Arterial Pressure 126 mmHg , SpO2 08/08/2016 6:08 CDT SpO2 95 % 08/08/2016 5:32 CDT SpO2 95 % 08/08/2016 5:25 CDT SpO2 95 % 08/08/2016 5:02 CDT SpO2 98 % 08/08/2016 4:50 CDT SpO2 96 % 08/08/2016 4:00 CDT SpO2 96 % . General: Alert and mild distress. Skin: Warm and dry. Head: Normocephalic and atraumatic. Neck: Supple and trachea midline. Eye: Pupils are equal, round and reactive to light and extraocular movements are intact. Ears, nose, mouth and throat: Tympanic membranes clear and oral mucosa moist. Cardiovascular: Regular rate and rhythm and No murmur. Respiratory: Lungs are clear to auscultation and respirations are non-labored. Chest wall: No tenderness. Back: Nontender, Normal range of motion, Normal alignment and no step-offs. Musculoskeletal: Normal ROM. normal strength. no tenderness. Gastrointestinal: Soft, Normal bowel sounds, No organomegaly and some rebound, some guarding. Genitourinary: pt declined. Neurological: Alert and oriented to person, place, time, and situation and No focal neurological deficit observed. Medical Decision Making Results review:Lab results : Lab View 08/08/2016 5:03 CDT Lipase Lvl 31.9 U/L 08/08/2016 4:48 CDT Hgb 14.2 g/dL Hct 42.1 % WBC 11.5 x10(9)/L HI RBC 5.00 x10(12)/L MCV 84.2 fL RDW 12.4 % Platelet 143 x10(9)/L LOW Neutro Absolute 8.08 10(9)/L HI Lymph Absolute 1.74 x10(9)/L Nash Absolute 0.98 x10(9)/L HI Eos Absolute 0.64 x10(9)/L HI Baso Absolute 0.05 x10(9)/L Sodium Lvl 137.7 mM/L Potassium Lvl 3.9 mmol/L Chloride 104 mmol/L CO2 23.1 mmol/L AGAP 11 mmol/L Alkaline Phosphatase 82 U/L Glucose Lvl 173 mg/dL HI Creatinine 1.79 mg/dL HI EGFR (MDRD) 30 mL/min/1.73m2 LOW EGFR (MDRD) 36 mL/min/1.73m2 LOW BUN 26 mg/dL HI Calcium Lvl 9.7 mg/dL Protein Total 7.5 g/dL Albumin Lvl 4.4 g/dL AST 30 unit/L ALT 20 unit/L Bili Total 0.7 mg/dL CRP 1.9 mg/L 08/08/2016 4:26 CDT Glucose POC 144 mg/dL HI . Radiology results:Reason For Exam llq abdominal pain - 07/20, guarding and rebound Report 08-Aug-2016 05:24:00 Exam: CT ABDOMEN wo & PELVIS wo Indications: llq abdominal pain - 07/20, guarding and rebound 08-Aug-2016 05:51 CA EXAM: CT scan of the Abdomen and Pelvis without IV contrast COMPARISON: CT abdomen and pelvis without IV contrast 07/11/2016 and pelvic ultrasound 07/11/2016. IMPRESSION: 1. 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 Again, differential considerations given prior exams likely represent a ovarian cystadenoma or cyst adenocarcinoma. 2. Due to large size of the right ovarian mass and the mobility of the associated vascular pedicle, one cannot completely rule out the possibility of ovarian torsion. If clinically suspicious for torsion, recommend pelvic ultrasound for further evaluation. 3. Otherwise, no acute findings in the abdomen or pelvis to account for the patient's presenting symptom of LLQ pain. OTHER FINDINGS: Persistent small quantity of perihepatic and free fluid in the dependent pelvis. Trace fluid or thickening in the left paracolic gutter. The liver, spleen, gallbladder, kidneys, and adrenal glands are negative for noncontrast appearance. Mild fatty infiltration the pancreas. Splenule. The small bowel is normal in caliber. Sigmoid diverticulosis without convincing evidence of active diverticulitis. Normal appendix. Moderate stool and gas throughout the colon rectal vault. Minimal vascular calcifications. New mild peripheral bronchial wall thickening with increased mixed dependent atelectasis and linear scarring, greatest in the LLL. Focal atelectasis anteromedial right middle lobe. Benign bone island right femoral head. Mild musculoskeletal degenerative changes of the spine. Reta James MD [phone] 08-Aug-2016 05:51 Signature Line Final Dictated: 08/08/2016 5:51 am Contributor_system, [facility]_SYS Signed (Electronic Signature): 08/08/2016 5:51 am Technologist: ALVARO QUINTERO Impression and Plan Diagnosis Lower abdominal pain Ovarian Mass Pt given fentanyl 100 mcg, ativan 1 mg and zofran 4 mg and 1 L NS Pain relieved down to 6-7/10 Called to discuss with [facility] in [place] who advised transfer for further evaluation (?torsion) and treatment. Accepted by Dr Stefan Fajardo Pt given a second liter of NS and dilaudid 1 mg before transfer She was more comfortable at the time of transfer. She was in agreement with the plan and preferred to go to [place] for further evaluation given that she has established [facility] care there. Electronically Signed By: CHRISTIAN MCCLURE MD On: 08/08/2016 06:32 AM Source: Yorn Document Id: [id number]} Akbar Lopez, R.N. - 08/08/2016 5:25 AM CDT ED Pain Assessment ED Pain Assessment Entered On: 08/08/2016 5:25 CDT Performed On: 08/08/2016 5:25 CDT by AKBAR LOPEZ RN Pain Assessment Pain Symptoms : Yes AKBAR LOPEZ RN - 08/08/2016 5:25 CDT Pain Scale Pain Scale Verbal 0-10 : Open AKBAR LOPEZ RN - 08/08/2016 5:25 CDT Pain Pain Assessment Grid Pain 1 Location : Abdomen Comments (Comment: Pt resting with eyes closed [AKBAR LOPEZ RN - 08/08/2016 5:25 CDT] ) AKBAR LOPEZ RN - 08/08/2016 5:25 CDT Source: Yorn Document Id: [id number] CDT!9 Akbar Lopez R.N. - 08/08/2016 5:03 AM CDT ED Treatments and Procedures ED Treatments and Procedures Entered On: 08/08/2016 5:03 CDT Performed On: 08/08/2016 5:03 CDT by AKBAR LOPEZ RN Oxygen Therapy Oxygen Start Time : 08/08/2016 4:45 CDT Oxygen Therapy : Nasal cannula Oxygen Flow Rate : 2 L/min AKBAR LOPEZ RN - 08/08/2016 5:03 CDT Source: Yorn Document Id: [id number] CDT!5 Akbar Lopez R.N. - 08/08/2016 5:02 AM CDT ED Pain Assessment ED Pain Assessment Entered On: 08/08/2016 5:02 CDT Performed On: 08/08/2016 5:02 CDT by AKBAR LOPEZ RN Pain Assessment Pain Symptoms : Yes AKBAR LOPEZ RN - 08/08/2016 5:02 CDT Pain Scale Pain Scale Verbal 0-10 : Open AKBAR LOPEZ RN - 08/08/2016 5:02 CDT Pain Pain Assessment Grid Pain 1 Location : Abdomen Laterality : Left Intensity : 7 AKBAR LOPEZ RN - 08/08/2016 5:02 CDT Source: Yorn Document Id: [id number] CDT!11 Akbar Lopez R.N. - 08/08/2016 4:45 AM CDT ED Pain Assessment ED Pain Assessment Entered On: 08/08/2016 4:58 CDT Performed On: 08/08/2016 4:45 CDT by AKBAR LOPEZ RN Pain Assessment Pain Symptoms : Yes AKBAR LOPEZ RN - 08/08/2016 4:58 CDT Pain Scale Pain Scale Verbal 0-10 : Open AKBAR LOEPZ RN - 08/08/2016 4:58 CDT Pain Pain Assessment Grid Pain 1 Location : Abdomen Intensity : 6 AKBAR LOPEZ RN - 08/08/2016 4:58 CDT Source: Yorn Document Id: [id number] CDT!10 Akbar Lopez R.N. - 08/08/2016 4:35 AM CDT ED Treatments and Procedures ED Treatments and Procedures Entered On: 08/08/2016 4:57 CDT Performed On: 08/08/2016 4:35 CDT by AKBAR LOPEZ RN Peripheral IV Peripheral IV Assess/Intervention Grid Peripheral IV #1 IV Activity : Start Number of Attempts : 1 Date of Insertion : 08/08/2016 CDT IV Site : Antecubital Laterality : Left Catheter Size : 18 Site Condition : No complications Flow/ Patency : No complications IV Equipment/Supplies : Blood set, Extension, set AKBAR LOPEZ RN - 08/08/2016 4:56 CDT Source: Yorn Document Id: [id number] CDT!13 Akbar Lopez R.N. - 08/08/2016 4:00 AM CDT ED Primary Assessment Document Has Been Updated ED Primary Assessment Entered On: 08/08/2016 4:13 CDT Performed On: 08/08/2016 4:00 CDT by AKBAR LOPEZ RN Reason For Visit (As Of: 08/08/2016 04:13:10 CDT) Problems(Active) Screening Cancer Colon (ICD-10-CM :Z12.11 ) Name of Problem: Screening Cancer Colon ; Recorder: PALMIRA COHN MD; Confirmation: Confirmed ; Classification: Medical ; Code: Z12.11 ; Contributor System: PowerChart ; Last Updated: 07/13/2016 15:08 CDT ; Life Cycle Date: 07/13/2016 ; Life Cycle Status:Active ; Responsible Provider: PALMIRA COHN MD; Vocabulary: ICD-10-CM Screening Mammogram Breast Ca (ICD-10-CM :Z12.31 ) Name of Problem: Screening Mammogram Breast Ca ; Recorder: PALMIRA COHN MD; Confirmation: Confirmed ; Classification: Medical ; Code: Z12.31 ; Contributor System: PowerChart ; Last Updated: 07/13/2016 15:06 CDT ; Life Cycle Date: 07/13/2016 ; LifeCycle Status: Active ; Responsible Provider: PLAMIRA COHN MD; Vocabulary: ICD-10-CM Diagnoses(Active) Abdominal pain Date: 08/08/2016 ; Diagnosis Type: Reason For Visit ; Confirmation: Complaint of ; Clinical Dx: Abdominal pain ; Classification: Medical ; Clinical Service: Emergency medicine ; Code: PNED ; Probability: 0 ; Diagnosis Code: [id number] Triage Chief Complaint Description : Pt c/o LLQ abdominal pain that started at 0300 suddenly. Pt reports having a mass on ovary that is scheduled for surgery on 08/21. Pt took one percocet at 0315. Information Given By : Patient Present in Room During Exam/Procedure : Spouse Mode of Arrival ED : Private vehicle Track : Medical Languages : Persian Patient Informed of Triage Location : Emergency department Vital Signs Assessed : Yes GCS Assessed : Yes Treatments Prior to Arrival : None Is Patient Female and 13-50 no hysterectomy : No AKBAR LOPEZ RN - 08/08/2016 4:09 CDT Vital Signs Temperature Core : 36.4 DegC(Converted to: 97.5 DegF) (LOW) Peripheral Pulse Rate : 76 /min Respiratory Rate : 22 /min (HI) Systolic Blood Pressure : 193 mmHg (>HHI) Diastolic Blood Pressure : 93 mmHg (>HHI) NIBP Mean : 126 mmHg SpO2 : 96 % Oxygen Therapy : Room air AKBAR LOPEZ RN - 08/08/2016 4:09 CDT [place] Coma Eye Opening Response [place] : Spontaneously Best Verbal Response Kaylin : Oriented Best Motor Response Kaylin : Obeys simple commands Kaylin Coma Score : 15 JESSICA AKBAR Mikel KIRKLAND - 08/08/2016 4:09 CDT Pain Assessment Pain Symptoms : Yes AKBAR LOPEZ RN - 08/08/2016 4:09 CDT Pain Scale Pain Scale Verbal 0-10 : Open AKBAR LOPEZ RN - 08/08/2016 4:09 CDT Pain Pain Assessment Grid Pain 1 Location : Abdomen Laterality : Left Intensity : 8 Onset : Sudden AKBAR LOPEZ RN - 08/08/2016 4:09 CDT Comfort Measures Comfort Measures Grid Positioning : Yes AKBAR LOPEZ RN - 08/08/2016 4:09 CDT ED Physician Notification Time ED Physician Notification Time : 08/08/2016 4:05 CDT AKBAR LOPEZ RN - 08/08/2016 4:09 CDT TYRONE TYRONE Level 1 : No TYRONE Level 2 : No TYRONE Level 3 : One AKBAR LOPEZ RN - 08/08/2016 4:09 CDT DCP GENERIC CODE Tracking Acuity : 4 -Less Urgent Tracking Group : [facility] ED LOPEZ AKBAR Morin RN - 08/08/2016 4:09 CDT Allergy (As Of: 08/08/2016 04:13:10 CDT) Allergies (Active) amoxicillin Estimated Onset Date: Unspecified ; Created By: PEDRO MADDEN RN; Reaction Status: Active ; Category: Drug ; Substance: amoxicillin ; Type: Allergy ; Updated By: PEDRO MADDEN RN; Reviewed Date: 08/08/2016 4:12 CDT NSAIDs Estimated Onset Date: Unspecified ; Created By: PEDRO MADDEN RN; Reaction Status: Active ; Category: Drug ; Substance: NSAIDs ; Type: Allergy ; Updated By: PEDRO MADDEN RN; Reviewed Date: 08/08/2016 4:12 CDT ID Screen Drug Resistant Organism : No Travel Within Last 21 Days : No Contact with someone with Ebola : No AKBAR LOPEZ RN - 08/08/2016 4:09 CDT Immunizations Immunizations Current : Yes AKBAR LOPEZ RN - 08/08/2016 4:09 CDT Respiratory Airway : Patent Respirations : Labored Respiratory Pattern : Regular Oxygen Therapy : Room air AKBAR LOPEZ RN - 08/08/2016 4:09 CDT Cardiovascular Heart Rhythm : Regular Skin Color : Normal for ethnicity Skin Description : Dry Skin Temperature : Warm AKBAR LOPEZ RN - 08/08/2016 4:09 CDT Neurological Last Well Time Known : Not applicable Level of Consciousness : Alert Orientation : Appropriate for age Characteristics of Speech : Appropriate for age Neuro Patient Stated Symptoms : None Gait : Steady Swallowing Difficulty/Aspiration Risk : None AKBAR LOPEZ RN - 08/08/2016 4:09 CDT ED Psychosocial Affect/Behavior : Cooperative, Appropriate Domestic Abuse Concerns : None Behavioral Health Screen/Safety Assmt : No AKBAR LOPEZ RN - 08/08/2016 4:09 CDT Gastrointestinal Nutrition ED : Adequate AKBAR LOPEZ RN - 08/08/2016 4:09 CDT Musculoskeletal Fall Prevention Education Provided : AKBAR MARRERO RN - 08/08/2016 4:09 CDT Social Habits Exposure to Tobacco Smoke : Care provider denies smoking in home, Other: never Smoking Status : Never smoker Tobacco 2A : Unknown Tobacco Use/Currently Using : No Tobacco Use/Last 30 Days : No Tobacco Use/Last 12 months : No AKBAR LOPEZ RN - 08/08/2016 4:09 CDT Alcohol Use Grid Alcohol Use : No AKBAR LOPEZ RN - 08/08/2016 4:09 CDT Recreational Drug Use Grid Drug Use : None AKBAR LOPEZ RN - 08/08/2016 4:09 CDT Source: [facility] Clinicbook Document Id: [id number] CDT!95 documented in this encounter Miscellaneous Notes Miscellaneous - Akbar Lopez R.N. - 08/08/2016 7:06 AM CDT Valuables/Belongings Valuables/Belongings Entered On: 08/08/2016 7:06 CDT Performed On: 08/08/2016 7:06 CDT by AKBAR LOPEZ RN Valuables/Belongings Belongings Sent Home With : EMS and spouse. Home Medication Disposition : None brought in with patient AKBAR LOPEZ RN - 08/08/2016 7:06 CDT Source: Yorn Document Id: [id number] CDT!4 Miscellaneous - Conversion, Historical Provider Ser - 08/08/2016 7:04 AM CDT Coding Summary-Paper Based CODING DATE: 08/17/2016 FINAL [facility] STATUS: Disch/Trans ShortTerm Gen Hosp-Inpt Care PAYOR: Commercial Insurance ADMIT DX: R10.32 Left lower quadrant pain REASON FOR VISIT DX: R10.32 Left lower quadrant pain FINAL DX: PRINCIPAL: N83.9 Noninflammatory disorder of ovary, fallopian tube and broad ligament, unspecified SECONDARY: Z88.1 Allergy status to other antibiotic agents status Z88.8 Allergy status to other drugs, medicaments and biological substances status PROCEDURES DOCTOR NAME DATE NOTE: The code number assigned matches the documented diagnosis and / or procedure in the patient's chart. However, the narrative phrase printed from the coding software may appear abbreviated, or result in slightly different terminology. Coded By: REY BARAKAT Date Saved: 08/17/2016 07:03 am Source: [facility] Document Id: [id number] Transfer of Care - Akbar Lopez RJohn. - 08/08/2016 6:57 AM CDT Patient Transfer Patient Transfer Entered On: 08/08/2016 7:08 CDT Performed On: 08/08/2016 6:57 CDT by AKBAR LOPEZ RN Patient Condition and Reason for Transfer Reason for Transfer : Medically indicated transfer Patient's Condition for Transfer : Stable AKBAR LOPEZ RN - 08/08/2016 7:06 CDT Transfer Requirements Transfer Requirements Met : [...] transfer explained to patient Transferring Physician : CHRISTIAN MCCLURE MD Receiving Facility Accepting Transfer : [facility] Project Coach of receiving facility accepting patient : Dr. Fajardo Date/Time Transfer Accepted : 08/08/2016 6:30 CDT Accepting Physician : Dr. Fajardo Date/Time Physician Accepted Patient : 08/08/2016 6:30 CDT Nurse Receiving Report : Ce Date/Time Nurse Received Report : 08/08/2016 7:07 CDT AKBAR LOPEZ RN - 08/08/2016 7:06 CDT Details of Transfer Mode of Transfer : Ground ambulance Data Sent with Patient : Chart copy, Face Sheet (patient demographics), History and Physical, Emergency Department Notes, Progress notes, Laboratory reports, Radiology reports and copies of films as ordered (indicate which films), Nursing database, medication records, progress notes, Physician Certification for Transfer form completed (keep original - send copy), Patient Consent for Transfer signed (keep original - send copy), Ambulance specific Physician Certification Statement completed if going by ambulance Required Personnel for Transfer : Other: ALS AKBAR LOPEZ RN - 08/08/2016 7:06 CDT Vital Signs Temperature Core : 36.1 DegC(Converted to: 97.0 DegF) (LOW) Peripheral Pulse Rate : 70 /min Respiratory Rate : 20 /min Systolic Blood Pressure : 177 mmHg (>HHI) Diastolic Blood Pressure : 82 mmHg NIBP Mean : 114 mmHg SpO2 : 96 % Oxygen Flow Rate : 2 L/min Oxygen Therapy : Nasal cannula AKBAR LOPEZ RN - 08/08/2016 7:06 CDT Valuables/Belongings Belongings Sent Home With : EMS and spouse. Home Medication Disposition : None brought in with patient AKBAR LOPEZ RN - 08/08/2016 7:06 CDT Source: [facility] Document Id: [id number] CDT!31 Miscellaneous - Akbar Lopez R.N. - 08/08/2016 3:57 AM CDT Facility Charge Ticket 2.0 11.0 DX Facility Charge Ticket 2.0 11.0 DX Entered On: 08/08/2016 7:06 CDT Performed On: 08/08/2016 3:57 CDT by AKBAR LOPEZ RN Facility Charge Ticket 2.0 11.0 DX ED Other Charges : Standard ED Encounter TVL Level Translated RTF : Abdominal pain TVL:4 TVL Level for Facility Charge Ticket : Level 4 Arrival Mode Calc : 1 Mode of Arrival ED : Private vehicle [facility] Mode of Arrival Interpreted : Standard [facility] Process Management : None Order Management RTF : Laboratory Glucose POC.,08/08/16 04:31,CHRISTIAN MCCLURE MD Completed CBC (includes Auto Differential),08/08/16 04:41,CHRISTIAN MCCLURE MD Completed Comprehensive Metabolic Panel,08/08/16 04:40,CHRISTIAN MCCLURE MD Completed C-Reactive Protein,08/08/16 04:40,CHRISTIAN MCCLURE MD Completed Urinalysis with Microscopic,08/08/16 04:41,CHRISTIAN MCCLURE MD Completed Automated Diff-5 Part,08/08/16 04:48,CHRISTIAN MCCLURE MD Completed Lipase Level,08/08/16 04:55,CHRISTIAN MCCLURE MD Completed EKG / Respiratory / Ancillary Oxygen - ED,08/08/16 05:11,CHRISTIAN MCCLURE MD Ordered CT / MRI / Ultrasound CT Abdomen/Pelvis w/o contrast,08/08/16 04:49,CHRISTIAN MCCLURE MD Completed [facility] Order Management : CT/MRI/Ultrasound, EKG, RT, Ancillary Services, Lab tests 30 Minutes Critical Care : No Nursing Notes RTF : Nursing Notes ED Primary Assessment,08/08/16 04:00,AKBAR LOPEZ RN ED Pain Assessment,08/08/16 06:43,AKBAR LOPEZ DIRECTOR INFORMATION SECURITY Pain Assessment,08/08/16 05:25,AKBAR LOPEZ RN ED Pain Assessment,08/08/16 05:02,AKBAR LOPEZ DIRECTOR INFORMATION SECURITY Pain Assessment,08/08/16 04:45,AKBAR LOPEZ RN [facility] Nursing Assessment : Triage and 1-2 nursing assessments [facility] Disposition : Transfer/Return to Hospital/SNF [facility] Total Points with Diagnosis Control : 15 [facility] Visit Level : 90878 Level 5 Treatments Prior to Arrival : None AKBAR LOPEZ RN - 08/08/2016 7:06 CDT Source: [facility] POWERCHART Document Id: [id number] CDT!18 documented in this encounter Plan of Treatment Not on filedocumented as of this encounter Procedures Procedure Name Priority Date/Time Associated Comments Diagnosis URINALYSIS WITH Routine 08/08/2016 6:00 AM Result s for this MICROSCOPIC CDT procedure are i n the results section. LIPASE, S/P Routine 08/08/2016 5:03 AM Results f or this CDT procedure are i n the results section. AUTOMATED Routine 08/08/2016 4:48 AM Results f or this DIFFERENTIAL, B CDT procedure ar e in the results section. CBC WITH DIFFERENTIAL, Routine 08/08/2016 4:48 AM Results for this B CDT procedure are i n the results section. C-REACTIVE PROTEIN Routine 08/08/2016 4:48 AM Res ults for this (CRP), S/P CDT procedure are i n the results section. COMPREHENSIVE Routine 08/08/2016 4:48 AM Results for this METABOLIC PANEL, S/P CDT procedu re are in the results section. GLUCOSE POCT, B Routine 08/08/2016 4:26 AM Result s for this CDT procedure are i n the results section. documented in this encounter Results (ABNORMAL) Urinalysis, Complete, Includes Microscopic (08/08/2016 6:00 AM CDT) athologist Signature Clarity Clear Clear POWERCHART HXUr Color Yellow Colorless POWERCHART Specific 1.020 POWERCHART [place], POCT, U Comment: Reference Range Specific [place]: 1.000-1.035 pH, POCT, Urine 5.5 <5.0 POWERCHART [...] Seen None Seen HPF POWERCHART HXUR RBC. Occ-2 None Seen HPF POWERCHART Squamous Epithelial 41-50 (A) None Seen HPF POWERC WEBBER HXUR Bacteria, Present (A) None Seen POWERCHART Specimen (Source) Anatomical Collection Method Collection Time Re ceived Time Location / / Volume Laterality Urine, First 08/08/2016 6:00 AM Voided CDT Christian Mcclure Jr., M.D. LAB URINE ORDERABLES Performing Organization Address City/[facility] [address]/[facility] Phon e Number POWERCHART Lipase (08/08/2016 5:03 AM CDT) P athologist Signature Lipase, S 31.9 10.0 - 73.0 POWERCHART UL Comment: Reference ranges have not been established for patients that are less than 16 years of age Specimen (Source) Anatomical Collection Method Collection Time Re ceived Time Location / / Volume Laterality Blood 08/08/2016 5:03 AM CDT Christian Mcclure Jr., M.D. LAB BLOOD ADD-ON Performing Organization Address City/[facility] [address]/[facility] Phon e Number POWERCHART (ABNORMAL) Automated Differential (08/08/2016 4:48 AM CDT) Patholo gist Method Time Signature Absolute 8.08 (H) 1.70 - POWERCHART Neutrophils 7.00 109L Lymphocytes 1.74 0.90 - POWERCHART 2.90 X109L Monocytes 0.98 (H) 0.30 - POWERCHART 0.90 X109L Eosinophils 0.64 (H) 0.05 - POWERCHART 0.50 X109L Absolute 0.05 0.00 - POWERCHART Basophil 0.30 X109L Specimen Anatomical Collection Method Collection Time Receive d Time (Source) Location / / Volume Laterality Blood 08/08/2016 4:48 AM 6 4:48 CDT AM CDT Christian Mcclure Jr., M.D. LAB BLOOD ADD-ON Performing Organization Address [facility] [address]/[facility] Code Phon e Number POWERCHART (ABNORMAL) CBC with Differential (08/08/2016 4:48 AM CDT) Analysis Performed At Patho logist Time Signature Leukocytes 11.5 (H) 3.4 - 10.5 POWERCHART X109L Erythrocytes 5.00 3.90 - POWERCHART 5.03 [id number] Hemoglobin 14.2 12.0 - POWERCHART 15.5 GDL Hematocrit 42.1 34.9 - POWERCHART 44.5 MCV 84.2 81.6 - POWERCHART 98.3 FL HX RDW 12.4 11.9 - POWERCHART 15.5 Platelet Count 143 (L) 150 - 450 POWERCHART X109L Specimen (Source) Anatomical Collection Method Collection Time Re ceived Time Location / / Volume Laterality Blood 08/08/2016 4:48 AM CDT Christian Mcclure Jr., M.D. LAB BLOOD ADD-ON Performing Organization Address City/State/ZIP Code Phon e Number POWERCHART CRP (C-Reactive Protein) (08/08/2016 4:48 AM CDT) athologist Signature C-Reactive 1.9 <=5.0 MGL POWERCHART Protein (CRP), S Specimen (Source) Anatomical Collection Method Collection Time Re ceived Time Location / / Volume Laterality Blood 08/08/2016 4:48 AM CDT Christian Mcclure Jr., M.D. LAB BLOOD ADD-ON Performing Organization Address City/State/ZIP Code Phon e Number POWERCHART (ABNORMAL) CMP (Comprehensive Metabolic Panel) (08/08/2016 4:48 AM CDT) [facility] gist Method Time Signature Alanine 20 7 - 45 POWERCHART Amniotransferase, LD UNITL Albumin, S 4.4 3.5 - 5.0 POWERCHART GDL Alkaline 82 41 - 108 POWERCHART Phosphatase, S UL Aspartate 30 8 - 43 POWERCHART Aminotransferase UNITL (AST), S Sodium, S 137.7 135.0 - POWERCHART 145.0 MML Potassium, S 3.9 3.6 - 4.8 POWERCHART MMOLL Chloride, S 104 98 - 107 POWERCHART MMOLL CO2 Total 23.1 23.0 - POWERCHART 29.0 MMOLL BUN (Blood Urea 26 (H) 7 - 18 POWERCHART Nitrogen), S MGDL Creatinine 1.79 (H) 0.60 - POWERCHART 1.30 MGDL Calcium, Total, S 9.7 8.6 - POWERCHART 10.0 MGDL Anion Gap 11 10 - 20 POWERCHART MMOLL eGFR Black/ 36 (L) >=60 POWERCHART [place] [id number] 2 Bilirubin, Total, S 0.7 0.1 - 1.0 POWERCHART MGDL Total Protein, S 7.5 6.3 - 7.9 POWERCHART GDL Glucose 173 (H) 70 - 139 POWERCHART MGDL HXeGFR (MDRD) 30 (L) >=60 POWERCHART [id number] Specimen (Source) Anatomical Collection Method Collection Time Re ceived Time Location / / Volume Laterality Blood 08/08/2016 4:48 AM CDT Christian Mcclure Jr., M.D. LAB BLOOD ADD-ON Performing Organization Address City/State/ZIP Code Phon e Number POWERCHART (ABNORMAL) Glucose, POCT (08/08/2016 4:26 AM CDT) athologist Signature Glucose, POCT, 144 (H) 70 - 140 POWERCHART B MGDL Comment: Analyzed By [id number] Jessica Webber Performed at [facility] [address] [facility] [address] [place], [place] ??[address] Specimen Anatomical Collection Method Collection Time Receive d Time (Source) Location / / Volume Laterality Blood 08/08/2016 4:26 AM 6 4:26 CDT AM CDT Christian Mcclure Jr., M.D. LAB POCT ORDERABLES-JARON ASHER Performing Organization Address City/State/ZIP Code Phon e Number POWERCHART documented in this encounter Visit Diagnoses Not on filedocumented in this encounter
--- OUTSIDE RECORDS SUMMARY | 2022-07-27 09:27 | XMS_ITS | Encounter Summary ---
:1960 Author Organization [facility] Address [address] [place] [address] Care Team Providers Name Role Phone Unavailable Primary Care Provider Unavailable Encounter Details Date Type Department Care Team Description 07/19/2007 Hospital Encounter HX [facility] CAM INPT/OBSRV Na Galvan M.D. [address] [place], [place] [address] (Wo rk) Social History Tobacco Use Types [...] How often do you attend jainism or bahai services? Patien t refused 06/26/2021 [...] place to sleep or slept in a fdc (including now)? Sex Assigned at Date Recorded Not on file documented as of this encounter Plan of Treatment Not on filedocumented as of this encounter Visit Diagnoses Not on filedocumented in this encounter
--- OUTSIDE RECORDS SUMMARY | 2022-07-27 09:27 | XMS_ITS | Encounter Summary ---
:1960 Author Organization [facility] Address [address] [place] [address] Care Team Providers Name Role Phone Unavailable Primary Care Provider Unavailable Encounter Details Date Type Department Care Team Description 07/11/2016 Hospital Encounter HX [facility] ED Quan Blackmon M.D. [address] [place], [place] [phone] (Wo rk) Social History [...] 06/26/2021 relatives? How often do you attend protestant or moravian services? Patien t refused 06/26/2021 Do you belong to any clubs or organizations such as Patient refused 06/26/2021 protestant groups, unions, fraternal or athletic groups, or [...] or slept in a correction (including now)? Sex Assigned at Date Recorded Not on file documented as of this encounter Last Filed Vital Signs Vital Sign Reading Time Taken Comments Blood Pressure 148/78 07/11/2016 12:58 PM CDT Pulse - - Temperature - - Respiratory Rate - - Oxygen Saturation - - Inhaled Oxygen Concentration - - Weight - - Height - - Body Mass Index - - documented in this encounter Discharge Summaries Kelli Florentino R.N. - 07/11/2016 1:03 PM CDT ED Depart Summary [facility] Clinical Discharge Summary PERSON INFORMATION Name ANGELES ALCANTARA Age 55 Years 1960 12:00 AM Sex Female Language Paraguayan PCP PCP, ELSEWHERE Marital Status Visit Id Visit Reason Abdominal pain; abdominal pain Specialty Enc Type Emergency Med Service Emergency Medicine Referred by Track [facility] ED Discharge 07/11/2016 1:03 PM Tracking Id [id number] Checkout 07/11/2016 1:03 PM Checkin 07/11/2016 8:14 AM Acuity 3 -Urgent Dispo Type * Discharged to Home or Self Care Arrival 07/11/2016 8:14 AM Reg Status Complete LOS 000 04:49 Address: [address] [place] [phone] Comment: PROVIDER INFORMATION Provider Role Provider Contact Time ANDREW BARTH RN ED Nurse 07/11/16 08:16 MISAEL BLACKMON MD ED Provider 07/11/16 09:05 DIAGNOSIS Complex Ovarian Cyst Comment: PATIENT EDUCATION INFORMATION Instructions: CA 125; What Are Ovarian Cysts? Follow up: With: Address: When: CITY CARRIER ASSISTANT In 2 days 07/13/2016 With: Address: When: ELSEWHERE PCP Within As Needed Source: [facility] POWERCHART Document Id: [id number] NING AND DEVELOPMENT MANAGER Kelli Florentino R.N. - 07/11/2016 1:03 PM CDT ED Discharge Instructions [address] [address] Name: ANGELES ALCANTARA Date of : 1960 12:00 AM Visit Date: 07/11/2016 8:14 AM [facility] Number: [id number] Address: [address] [place] [phone] Primary Care Provider: PCP, ELSEWHERE IMPORTANT: [facility] in [place] would like to thank you for allowing us to assist you with your healthcare needs. The following includes patient education materials and information regarding your injury/illness. Diagnosis: Complex Ovarian Cyst Follow-Up Instructions: With: Address: When: CITY CARRIER ASSISTANT In 2 days 07/13/2016 With: Address: When: ELSEWHERE PCP Within As Needed Your Upcoming Appointments: Date Time Location Provider 07[facility]13/2016 14[facility] Ashley Oviedo MD Patient Education Materials: CA 125 Does this test have other names? Cancer antigen 125, glycoprotein antigen, ovarian cancer antigen What is this test? This test looks for the protein CA 125 in your blood. CA 125 is higher in many women with ovarian cancer. Because this protein can be measured with a blood test, health care providers may use this test to look for ovarian cancer in women who may be at high risk because of family history or symptoms. They may also use this test to see if treatment is working or to find out whether cancer is coming back after treatment. CA 125 is also higher in some noncancerous conditions. This means that CA 125 is not a good blood test to screen all women for ovarian cancer. Why do I need this test? You may have this test if you have symptoms of ovarian cancer or a family history of it. This test may be done as part of your diagnosis. You may also have this test if you have already been diagnosed with ovarian cancer and your doctor wants to see if treatment was effective. You may get this test done before and during treatment. You may also have this test if you've already been treated for ovarian cancer and your doctor needs to find out if the cancer has returned. Measuring CA 125 is one of the best ways to figure out if ovarian cancer has come back after treatment. What other tests might I have along with this test? Your doctor will likely order other tests, depending on your stage of the disease. These include other blood tests and imaging studies, like an ultrasound, CT scan, or MRI. What do my test results mean? Many things may affect your lab test results. These include the method each lab uses to do the test.Even if your test results are different from the normal value, you may not have a problem. To learn what the results mean for you, talk with your health care provider. Results are given in units per milliliter (U/mL). A normal CA 125 result is less than 35 U/mL. But it's important to know that having a higher CA 125 result doesn't mean you have cancer. Many conditions other than cancer, including inflammatory disease, recent surgery, fibroids, your menstrual cycle, or an ectopic , can cause CA 125 to rise. And having a normal CA 125 result doesn't mean you don't have ovarian cancer. Some women with early ovarian cancer have a normal CA 125 level. One elevated or normal CA 125 test result is not as important as a series of CA 125 blood tests overtime. If you have a high CA 125 level, your doctor may recommend that you see a gynecologic oncologist, a cancer doctor who specializes in cancers of the female reproductive system. How is this test done? The test requires a blood sample, which is drawn through a needle from a vein in your arm. Does this test pose any risks? Taking a blood sample with a needle carries risks that include bleeding, infection, bruising, or feeling dizzy. When the needle pricks your arm, you may feel a slight stinging sensation or pain. Afterward, the site may be slightly sore. What might affect my test results? and your menstrual cycle can affect your results. Some drugs used to treat ovarian cancer can also affect your results. How do I get ready for this test? You don't need to prepare for this test. ?? [phone] [facility], [address] [place] [address]. All rights reserved. This information is not intended as a substitute for professional medical care. Always follow your healthcare professional's instructions. What Are Ovarian Cysts? A cyst is usually a fluid-filled sac, like a small water balloon. These cysts are almost always harmless, and many go away on their own. No one knows exactly why cysts form. Usually they grow slowly. They can vary in size from as small as a pea to larger than a grapefruit. Many cause no symptoms at all. Often they are felt only during a pelvic exam. Ovarian cysts are usually not cancerous. Fewer than8 women per 100,000 are diagnosed with ovarian cancer each year. Functional Cyst A functional cyst is the most common kind of cyst. It forms when a follicle does not release a mature egg or continues to grow after releasing the egg. Functional cysts usually occur on only 1 ovary, and shrink on their own in 1 month to 3 months. Rarely, a cyst will rupture, causing pain. Pain might also be caused by the twisting of an ovary that is enlarged because of the cyst growing on it. Dermoid Cyst Sometimes an unfertilized egg will start to grow into different kinds of tissue, such as skin, fat, hair, and teeth. This kind of cyst is called a dermoid cyst. Dermoid cysts can grow on 1 or both ovaries. Usually they cause no symptoms. But if they leak or the ovary becomes twisted, they can cause severe pain. Endometrioma (Chocolate Cyst) Sometimes tissue similar to the lining of the uterus (endometrium) grows and becomes part of the ovary. This kind of cyst is often called a chocolate cyst because of its dark-brown color. These cysts can grow on 1 or both ovaries. They often cause pain, especially around menstruation or during sexual intercourse. Benign Cystadenoma If the capsule that surrounds the ovary grows, it can form a cystadenoma. These cysts can grow on 1 or both ovaries. Usually they cause no symptoms if they are small. But if they become large, they canpress on organs near the ovaries, causing pain. They can also cause pain by stretching the ovarian capsule. A cyst that pushes on the bladder can cause frequent urination. Sometimes these cysts ruptureand bleed. ?? [phone] [place] [address]. All rights reserved. This information is not [...] dont have one. Go to [email or web address] and click on Create Your Account. Then, follow the directions to complete the online form. Youll be asked for your [facility] number which you can find at the top of this document. ED Tests and Procedures: Order Status US Abdomen Complete Canceled CA 125-[place] [address] Ordered US Pelvic And Endovaginal Completed Discharge Prescriptions & Home Medications: rdrsMedication/Strength Dose Route Frequency Indications/Special Instructions/Comments/Notes oxyCODONE-acetaminophen (Percocet 5/325 oral tablet) 1 to 2 tablets Oral every 4 hours as needed forPain No more than 4,000mg acetaminophen/24hrs insulin glargine (Lantus) 22 units Subcutaneous once [...] arrange a ride home with a responsible green party. I, ANGELES ALCANTARA , or responsible green party have received this information and my questions [...] arrange a ride home with a responsible green party. Caron, ANGELES ALCANTARA , or responsible green party have received this information and my questions have been answered. I have discussed any challenges I see with this plan with the nurse or physician. Patient Signature or Responsible Democrat/Relationship Date Time Provider Signature Date Time This document has images extracted. Please consider using [employer] for all your patient education needs. Source: [facility] POWERCHART Document Id: [id number] documented in this encounter Medications at Time [...] documented as of this encounter Progress Notes Misael Blackmon - 07/11/2016 12:00 AM CDT [id number] Document Contains Addenda REVISION HISTORY September 22, 2016. 10:27 a.m. -Addendum added at the bottom of this report. Addendum includes the Physical Exam done in [place], by Joseph Sanchez PA-C. Addendum by MISAEL BLACKMON MD on September 20, 2016 1:47 TRAINING AND DEVELOPMENT MANAGER (Verified) PHYSICAL EXAM deferred. See note from [place]. Signature Line Modified by and Electronically Signed by: MISAEL BLACKMON MD On: 09/20/2016 01:47 AM Abdominal pain Patient: ANGELES ALCANTARA Age: 55 years Sex: Female : 1960 Author: MISAEL BLACKMON MD Attachments: None Associated Diagnosis: Complex Ovarian Cyst Basic Information Additional information: Chief Complaint from Nursing Triage Note : Chief Complaint Description 07/11/2016 8:25 CDT Chief Complaint Description Patie is having lower left abdominal pain that wrapsto the back. started about 0400 today. She thought may be passing a kidney stone. She was was seen about 1 month ago and possible may have stone. Patient is here for Ultra sound to rule out torsion. 07/11/2016 8:15 CDT Chief Complaint Description was seen in [place] and sent here for marbella gordon 07/11/2016 5:39 CDT Chief Complaint Description see triage note 07/11/2016 5:17 CDT Chief Complaint Description is having lower left abdominal pain that wraps to the back. started about 0400 today. thinks may be passing a kidney stone. was seen aout 1 month ago andtold may have stone. took 500mg Tylenol prior to coming in but threw up. cant have ibuprofen. . History of Present Illness The patient presents with abdominal pain and Seen in [place] ER. CT raised question of abnormalovarian mass and/or torsion. Sent here for U/S. Patient currently is without pain. See Note from [place] for details. . Health Status Allergies: Allergic Reactions (Selected) Severity Not Documented Amoxicillin- No reactions were documented. NSAIDs- No reactions were documented.. Past Medical/ Family/ Social History Medical history: No active or resolved past medical history items have been selected or recorded.. Surgical history: Ablation ([id number]) in 2005 at 45 Years. Comments: 06/11/2011 10:39 - ANGELA LEONARD BRAND STRATEGY MANAGER Uterine. Family history: No family history items have been selected or recorded.. Physical Examination Vital Signs: Vital Signs 07/11/2016 7:39 CDT Temperature Core 36.5 DegC Peripheral Pulse Rate 68 /min Respiratory Rate 16 /min SpO2 94 % Systolic Blood Pressure 165 mmHg >HHI Diastolic Blood Pressure 87 mmHg Mean Arterial Pressure 113 mmHg BP Location Left upper 07/11/2016 6:45 CDT Pulse SpO2 68 /min SpO2 95 % Systolic Blood Pressure 167 mmHg >HHI Diastolic Blood Pressure 81 mmHg Mean Arterial Pressure 107 mmHg 07/11/2016 6:30 CDT Pulse SpO2 69 /min [...] Arterial Pressure 120 mmHg , SpO2 07/11/2016 7:39 CDT SpO2 94 % 07/11/2016 6:45 CDT SpO2 95 % 07/11/2016 6:30 CDT SpO2 96 % 07/11/2016 6:15 CDT SpO2 96 % 07/11/2016 6:13 CDT SpO2 93 % LOW 07/11/2016 5:17 CDT SpO2 98 % . Medical Decision Making Radiology results:11-Jul-2016 09:45:00 Exam: US Pelvis with Transvaginal STAT Indications: pain, r/o ovarian torsion, per CT report ORIGINAL REPORT - 11-Jul-2016 11:57:00 EXAM: US Pelvis with Transvaginal COMPARISON: CT [...] and extent of the mass it is difficultto clearly separate the ovary from the mass. Nothing to suggest right ovarian torsion. Left ovary was not visualized sonographically. Small volume of pelvic free fluid. The uterus and endometrium were s onographically unremarkable. Findings discussed with the ordering provider via telephone at 11:55 AM. Electronically signed by: Aniceto Herndon MD [phone] 11-Jul-2016 11:57 Impression and Plan Diagnosis Complex Ovarian Cyst (Discharge, Emergency medicine, Medical) Calls-Consults -VIVI GRIFFITH MD, recommends CA-125, which was ordered. Follow up with PREBOARDER in 1-2 days. . Plan Condition: Improved. Prescriptions: Prescription [facility]: Percocet 5/325 oral tablet (Prescribe): 1 to 2 tablets, PO, q4hr, for 3 day(s), PRN: Pain, 12 tab(s), 0 Refill(s). Patient was given the following educational materials: What Are Ovarian Cysts?, CA 125. Follow up with: ELSEWHERE PCP Within As Needed; CITY CARRIER ASSISTANT In 2 days 07/13/2016. Counseled: Patient, Family, Regarding diagnostic results. Signature Line Electronically Signed By: MISAEL BLACKMON MD On: 07/13/2016 06:31 PM Modified by and Electronically Signed by: MISAEL BLACKMON MD On: 07/13/2016 06:31 PM ADDENDUM: Physical Examination (by Joseph Sanchez PA-C.) Vital Signs: Vital Signs 07/11/2016 6:30 CDT [...] Signs: McBurney's negative, Psoas negative, Ruiz's negative, Warthen's negative, Rovsing's negative. Back: Nontender and Normal alignment. Neurological: Alert and oriented to person, place, time, and situation. Psychiatric: Cooperative and appropriate mood & affect. Misael Blackmon M.D./segundo Electronically Signed By: MISAEL BLACKMON MD On: 09/22/2016 03:36 PM Source: [facility] MHSDOLBEYNONRADSYS Document Id: [id number] NING AND DEVELOPMENT MANAGER documented in this encounter ED Notes Kelli Florentino R.N. - 07/11/2016 1:01 PM CDT ED Disposition Summary ED Disposition Summary Entered On: 07/11/2016 13:01 CDT Performed On: 07/11/2016 13:01 CDT by KELLI FLORENTINO COATER CARBON PAPER Disposition Summary Present in Room During Exam/Procedure : Spouse Mode of Discharge : Ambulatory Transportation : Private vehicle Printed Discharge Instructions Given to Patient : Yes Patient Status at Discharge from ED : Improved KELLI FLORENTINO RN - 07/11/2016 13:01 CDT Source: [employer] Document Id: [id number] CDT!7 Manan Barth R.N. - 07/11/2016 8:50 AM CDT ED Treatments and Procedures ED Treatments and Procedures Entered On: 07/11/2016 8:51 CDT Performed On: 07/11/2016 8:50 CDT by ANDREW BARTH RN Peripheral IV Peripheral IV Assess/Intervention Grid Peripheral IV #1 IV Activity : Start Number of Attempts : 1 Date of Insertion : 07/11/2016 CDT IV Site : Antecubital Laterality : Left Catheter Size : 18 Catheter Type : Protective Site Condition : No complications ANDREW BARTH RN - 07/11/2016 8:50 CDT Source: [employer] Document Id: [id number] CDT!12 Manan Barth R.N. - 07/11/2016 8:25 AM CDT ED Primary Assessment Document Has Been Updated ED Primary Assessment Entered On: 07/11/2016 8:31 CDT Performed On: 07/11/2016 8:25 CDT by ANDREW BARTH RN Reason For Visit (As Of: 07/11/2016 08:31:54 CDT) Diagnoses(Active) Abdominal pain Date: 07/11/2016 ; Diagnosis Type: Reason For Visit ; Confirmation: Complaint of ; Clinical Dx: Abdominal pain ; Classification: Medical ; Clinical Service: Emergency medicine ; Code: PNED ; Probability: 0 ; Diagnosis Code: [id number] Triage Chief Complaint Description : Naresh is having lower left abdominal pain that wraps to the back. started about 0400 today. She thought may be passing a kidney stone. She was was seen about 1 month ago and possible may have stone. Gabriele is here for Ultra sound to rule out torsion. Mode of Arrival ED : Private vehicle Track : Medical Languages : Paraguayan Treatments Prior to Arrival : Home treatments Is Patient Female and 13-50 no hysterectomy : No ANDREW BARTH RN - 07/11/2016 8:25 CDT Pain Assessment Pain Symptoms : Yes ANDREW BARTH RN - 07/11/2016 8:25 CDT Pain Scale Pain Scale Verbal 0-10 : Open ANDREW BARTH RN - 07/11/2016 8:25 CDT Pain Pain Assessment Grid Pain 1 Location : Abdomen Intensity : 2 ANDREW BARTH RN - 07/11/2016 8:25 CDT TYRONE DCP GENERIC CODE Tracking Acuity : 3 -Urgent Tracking Group : [facility] ED ANDREW BARTH RN - 07/11/2016 8:25 CDT Respiratory Airway : Patent Respirations : Unlabored Respiratory Pattern : Regular ANDREW BARTH RN - 07/11/2016 8:25 CDT Cardiovascular Heart Rhythm : Regular Skin Color : Normal for ethnicity Skin Description : Normal Skin Temperature : Warm ANDREW BARTH RN - 07/11/2016 8:25 CDT Neurological Last Well Time Known : Not applicable Level of Consciousness : Alert Orientation : Oriented x 3 Characteristics of Speech : Appropriate for age ANDREW BARTH RN - 07/11/2016 8:25 CDT ED Psychosocial Affect/Behavior : Calm Domestic Abuse Concerns : None Behavioral Health Screen/Safety Assmt : No ANDREW BARTH RN - 07/11/2016 8:25 CDT Gastrointestinal Nutrition ED : Adequate GI Detailed Assessment : Yes ANDREW BARTH RN - 07/11/2016 8:25 CDT GI Detailed GI Patient Stated Symptoms : Abdominal pain Abdomen Description : Symmetric GI Note : Decrease left abdominal pain after Morphine. ANDREW BARTH RN - 07/11/2016 8:25 CDT Musculoskeletal Fall Prevention Education Provided : Yes ANDREW BARTH RN - 07/11/2016 8:25 CDT Social Habits Exposure to Tobacco Smoke : Care provider denies smoking in home Smoking Status : Never smoker Tobacco 2A : No Tobacco Use/Currently Using : No Tobacco Use/Last 30 Days : No Tobacco Use/Last 12 months : No ANDREW BARTH RN - 07/11/2016 8:25 CDT Alcohol Use Grid Alcohol Use : No ANDREW BARTH RN - 07/11/2016 8:25 CDT Recreational Drug Use Grid Drug Use : None ANDREW BARTH RN - 07/11/2016 8:25 CDT Source: [employer] Document Id: [id number] CDT!61 Neelima Headley R.N. - 07/11/2016 8:15 AM CDT ED Triage Assessment Document Has Been Updated ED Triage Assessment Entered On: 07/11/2016 8:18 CDT Performed On: 07/11/2016 8:15 CDT by NEELIMA HEADLEY RN Reason For Visit (As Of: 07/11/2016 08:18:02 CDT) Diagnoses(Active) Abdominal pain Date: 07/11/2016 ; Diagnosis Type: Reason For Visit ; Confirmation: Complaint of ; Clinical Dx: Abdominal pain ; Classification: Medical ; Clinical Service: Emergency medicine ; Code: PNED ; Probability: 0 ; Diagnosis Code: [id number] Triage Chief Complaint Description : was seen in [place] and sent here for eval, and ultrasound Information Given By : Patient Present in Room During Exam/Procedure : Spouse Mode of Arrival ED : Private vehicle Track : Medical Languages : Paraguayan Patient Informed of Triage Location : Emergency department Treatments Prior to Arrival : Home treatments Is Patient Female and 13-50 no hysterectomy : No NEELIMA HEADLEY RN - 07/11/2016 8:15 CDT Pain Assessment Pain Symptoms : Yes NEELIMA HEADLEY RN - 07/11/2016 8:15 CDT Pain Scale Pain Scale Verbal 0-10 : Open NEELIMA HEADLEY RN - 07/11/2016 8:15 CDT Pain Pain Assessment Grid Pain 1 Location : Abdomen Laterality : Left Intensity : 2 NEELIMA HEADLEY RN - 07/11/2016 8:15 CDT TYRONE DCP GENERIC CODE Tracking Acuity : 3 -Urgent Tracking Group : [facility]W ED NEELIMA HEADLEY RN - 07/11/2016 8:15 CDT Source: [employer] Document Id: [id number] CDT!25 documented in this encounter Miscellaneous Notes Miscellaneous - Conversion, Historical Provider Ser - 07/11/2016 1:03 PM CDT Coding Summary-Paper Based CODING DATE: 10/01/[address] [facility] STATUS: * Discharged to Home or Self Care PAYOR: Commercial Insurance ADMIT DX: R10.32 Left lower quadrant pain REASON FOR VISIT DX: R10.32 Left lower quadrant pain FINAL DX: PRINCIPAL: N83.201 Unspecified ovarian cyst, right side SECONDARY: Z88.1 Allergy status to other antibiotic agents status PROCEDURES DOCTOR NAME DATE NOTE: The code number assigned matches the documented diagnosis and / or procedure in the patient's chart. However, the narrative phrase printed from the coding software may appear abbreviated, or result in slightly different terminology. Coded By: ANGELLA COATES Date Saved: 10/01/2016 08:16 am Source: [employer] Document Id: [id number] Miscellaneous - Kelli Florentino R.N. - 07/11/2016 1:02 PM CDT Valuables/Belongings Valuables/Belongings Entered On: 07/11/2016 13:02 CDT Performed On: 07/11/2016 13:02 CDT by KELLI FLORENTINO RN Valuables/Belongings Valuables/Belongings Grid Valuables with Patient Clothes, Patient Valuables : Pants, Shirt, Shoes KELLI FLORENTINO RN - 07/11/2016 13:02 CDT Source: [employer] Document Id: [id number] CDT!5 Miscellaneous - Kelli Florentino R.N. - 07/11/2016 8:14 AM CDT Facility Charge Ticket 2.0 11.0 DX Facility Charge Ticket 2.0 11.0 DX Entered On: 07/11/2016 13:02 CDT Performed On: 07/11/2016 8:14 CDT by KELLI FLORENTINO RN Facility Charge Ticket 2.0 11.0 DX ED Other Charges : Standard ED Encounter TVL Level Translated RTF : Abdominal pain TVL:4 TVL Level for Facility Charge Ticket : Level 4 Arrival Mode Calc : 1 Mode of Arrival ED : Private vehicle [facility] Mode of Arrival Interpreted : Standard [facility] Process Management : None Order Management RTF : Laboratory CA 125-[place] 9289,07/11/16 12:01,MISAEL BLACKMON MD Ordered CT / MRI / Ultrasound US Pelvic And Endovaginal,07/11/16 08:18,MISAEL BLACKMON MD Completed [facility] Order Management : CT/MRI/Ultrasound, Lab tests 30 Minutes Critical Care : No Nursing Notes RTF : Triage Forms ED Triage Assessment,07/11/16 08:15,NEELIMA HEADLEY RN Nursing Notes ED Primary Assessment,07/11/16 08:25,ANDREW BARTH RN [facility] Nursing Assessment : Triage and 1-2 nursing assessments [facility] Disposition : Immediate Referral [facility] Total Points with Diagnosis Control : 11 [facility] Visit Level : 23265 Level 4 Treatments Prior to Arrival : Home treatments KELLI FLORENTINO RN - 07/11/2016 13:02 CDT Source: [employer] Document Id: [id number] CDT!18 documented in this encounter Plan of Treatment Not on filedocumented as of this encounter Procedures Procedure Name Priority Date/Time Associated Diagnosis Comme nts CANCER AG 125 (CA Routine 07/11/2016 12:28 PM Res ults for this 125), S CDT procedure are i n the results section. documented in this encounter Results (ABNORMAL) CA 125 (Cancer Antigen 125) (07/11/2016 12:28 PM CDT) P athologist Signature Cancer Ag 125 39 (H) <35 UNITML POWERCHART (CA 125), S Comment: ADDITIONAL INFORMATIO N The testing method is an immunoenzymatic assay manufactured by [employer] and performed on the BrandShield DxI 800. Values obtained with different assay met hods or kits may be different and cannot be used interchangeably. Test results cannot be interpreted as ab solute evidence for the presence or absence of malignant disease. Test Performed by: [place] [address] Student Specialist: Jeovanny Snyder II, M.D., Ph.D. Specimen (Source) Anatomical Collection Method Collection Time Re ceived Time Location / / Volume Laterality Blood 07/11/2016 12:28 PM CDT Misael Blackmon M.D. LAB BLOOD ADD-ON Performing Organization Address City/State/ZIP Code Phon e Number POWERCHART documented in this encounter Visit Diagnoses Not on filedocumented in this encounter
--- OUTSIDE RECORDS SUMMARY | 2022-07-27 09:27 | XMS_ITS | Encounter Summary ---
:1960 Author Organization [facility] Address [address] [place] [id number] Care Team Providers Name Role Phone Unavailable Primary Care Provider Unavailable Encounter Details Date Type Department Care Team Description 02/09/2019 Hospital Encounter Department of [facility] [address] [address] [place], [place] [phone] (Work) [phone] Social History Tobacco Use Types Packs/Day Years [...] 06/26/2021 relatives? How often do you attend yazidi or uatsdin services? Purvien t refused 06/26/2021 Do you belong to any clubs or organizations such as Patient refused 06/26/2021 yazidi groups, unions, fraternal or athletic groups, or [...] slept in a group home (including now)? Sex Assigned at Date Recorded [...] Priority Date/Time Associated Comments Diagnosis BI BREAST RAD - Routine 02/09/2019 10:06 Screening Results fo r this SCREENING (most inpatients AM CDT Mammogram Breast procedu re are in BILATERAL and all Cancer the results outpatients) section. documented in this encounter Results BI Breast Screening Bilateral (02/09/2019 10:06 AM CDT) Anatomical Region Laterality Modality Breast, Breast Imaging RST LOS, Breast Imaging ARZ LOS, Ana st Bilateral Mammography Imaging FLA LOS Specimen (Source) Anatomical Collection Method Collection Time Re ceived Time Location / / Volume Laterality 02/09/2019 10:17 AM CDT Impressions 02/09/2019 10:18 AM CDT IMPRESSION: ??Negative. RECOMMENDATION: ??Annual Screening Mammo gram ASSESSMENT: ??BI-RADS: 1: Negative. Narrative 02/09/2019 10:18 AM CDT EXAM: ??BI BREAST SCREENING BILATERAL Current study was evaluated with a Compu ter Aided Detection (CAD) system. INDICATION: ??Screening mammogram. COMPARISON: ??Prior exam(s) were availab le and reviewed for comparison. DENSITY: ??c. The breast(s) are heteroge neously dense, which may obscure small masses. FINDINGS: ??No mammographic findings of malignancy. Procedure Note Chacho Robledo M.D. - 02/09/2019Formatti ng of this note might be different from the original. EXAM: BI BREAST SCREENING BILATERAL Current study was evaluated with a Compu ter Aided Detection (CAD) system. INDICATION: Screening mammogram. COMPARISON: Prior exam(s) were available and reviewed for comparison. DENSITY: c. The breast(s) are heterogene ously dense, which may obscure small masses. FINDINGS: No mammographic findings of ma lignancy. IMPRESSION: Negative. RECOMMENDATION: Annual Screening Mammogr am ASSESSMENT: BI-RADS: 1: Negative. Yesenia MARIE BI PROCEDURES documented in this encounter Visit Diagnoses Diagnosis Screening Mammogram Breast Cancer documented in this encounter
--- OUTSIDE RECORDS SUMMARY | 2022-07-27 09:27 | XMS_ITS | Encounter Summary ---
:1960 Author Organization [facility] Address [address] [place] [address] Care Team Providers Name Role Phone Unavailable Primary Care Provider Unavailable Encounter Details Date Type Department Care Team Description 06/11/2011 Hospital Encounter HX [facility] Jennifer Workman M.D. [address] [place] [id number] (Wo rk) Social History Tobacco Use [...] 06/26/2021 relatives? How often do you attend adventism or jain services? Patien t refused 06/26/2021 Do you belong to any clubs or organizations such as Patient refused 06/26/2021 adventism groups, unions, fraternal or athletic groups, or [...] documented as of this encounter Progress Notes Angela Rivers L.P.N. - 06/11/2011 10:46 AM CDT Eye Services Clinic Exam Eye Services Clinic Exam Entered On: 06/11/2011 10:47 CDT Performed On: 06/11/2011 10:46 CDT by ANGELA RIVERS LPN Chief Complaint and History Pain Symptoms: No ANGELA RIVERS LPN - 06/11/2011 10:46 CDT Vision Testing Right Eye Vision Testing: Without correction, 20/20 Left Eye Vision Testing: Without correction, 20/30 ANGELA RIVERS LPN - 06/11/2011 10:46 CDT [facility] Document Id: [id number] CDT!6 Jennifer Zhao M.D. - 06/11/2011 12:00 AM CDT [id number] IMPRESSION/REPORT/PLAN 1. Left eyelid edema with concern for allergic reaction. Differential: angioedema or contact dermatitis. Discussed treatment options including doing nothing versus trying oral steroids versus H2 blockers and antihistamines. At this point, she would like to try the steroids since that worked in the past. Will give her a 5-day prescription for prednisone 40 mg per day. Return if she develops fevers, pain in her eye, increasing swelling or increasing redness. 2. Elevated blood pressure. Patient does not have a history of known hypertension. Will have her follow up in a couple weeks for blood pressure recheck. Patient Education #1 Patient ready to learn. No apparent learning barriers were identified. Learning preferences included listening. Explained diagnosis and treatment plan. Patient expressed understanding of the content. CHIEF COMPLAINT/REASON FOR VISIT Left eye swelling. HISTORY OF PRESENT ILLNESS This 50-year-old female awoke yesterday morning with her left eye swollen shut with some crusting. She reports it got a little better throughout the day but then when she woke up this morning it was worse and, again, swollen shut with some crusting. She denies there being any pain. She states there is maybe a pressure sensation. There is no redness in the white of her eye. No tearing. She tried some Benadryl which did not help. She states the night before this all started she was making salsa but she was careful not to touch her face with her hands and she did wear gloves. Patient denies the use of any new products or unusual contacts. Four years ago she states something similar happened and we were able to review those records. At that point, her eyes were itchy and they got very swollen. She also had significant ecchymosis. She was placed on some oral steroids as well as some prednisone drops. The patient states it resolved in a couple days. Patient has no current visual changes. No runny nose, sore throat, or cough. She has no sick contacts. She does have seasonal allergies. She denies having any itching and no increase in her sneezing. CURRENT MEDICATIONS None. ALLERGIES No known drug allergies. SYSTEM REVIEW As above. No fevers. She denies any flushing to her face and no swelling of her tongue. No difficulty breathing or feeling like her throat is getting tight. She has no hives. VITAL SIGNS TEMP: 35.6 degrees PULSE: 76 bpm RESP: 16 BP: 166/110 HT: 160.9 WT: 99.5 kg PHYSICAL EXAM GENERAL: patient is alert and oriented and in no acute distress. HEENT: Head is normocephalic and atraumatic. There is edema of the upper and lower eyelids on the left. The right eye is unaffected. There is no acute conjunctival injection. PERRL, EOMI. Vision is 20/20 on the right and 20/30 on the left. She has no tenderness to palpation of her temporal area. TMs clear bilaterally. Nasal mucosa is mildly erythematous but not significantly swollen. Oral mucosa is moist without lesions. NECK: neck is supple. No lymphadenopathy. LUNGS: Lungs are clear to auscultation bilaterally. No accessory muscle use. HEART: heart is regular rate and rhythm. Normal S1 and S2. No murmurs, rubs, or gallops. No jugular venous distention. Jennifer Poon M.D. / Electronically Signed By: JENNIFER POON MD On: 06/16/2011 01:56 PM Source: [facility] MHSDOLBEYNONRADSYS Document Id: [id number] documented in this encounter Miscellaneous Notes Miscellaneous - Jennifer Zhao M.D. - 06/11/2011 11:20 AM CDT Ambulatory Patient Summary [address] [address] Visit Information Name: ANGELES MORALES Current Date: 06/11/2011 11:20:11 Primary Care Provider: JENNIFER POON MD Your Medications Here is a list of your medications. It is important to take your medications as directed. Use a pillbox or chart to help remind you to take your medications. Please let your doctor or nurse know if you have problems taking your medications. Medication/Strength Dose Route Frequency Indications/Special Instructions/Comments predniSONE (predniSONE 20 mg oral tablet) 40 mg Oral once a day for 5 Days Your Allergies & Intolerances Substance Reaction Symptoms Category Comments NKA Drug Your Problem List Problem Status Onset Comments No Problems found Your Recommendations We want to make sure you get the tests, immunizations, and guidance you need to stay healthy. Here is a customized list of recommendations, based on information we have in your medical record. Your doctor may have additional recommendations for you, based on your personal medical history and risk factors. You can help us by calling us to make an appointment when you are due for your tests. Additional information regarding recommendations: Test/Treatment Last Done Next Due Additional Information Screening Mammogram every 1 year Women 40-75 06/11/2011 X-rays of breast to check for breast cancer. Screening Pap Smear every 3 years Women 21-65 06/11/2011 Checks for signs of cancer of the cervix. Lipid Panel every 5 years Age 20-75 06/11/2011 Checks blood for good (HDL) and bad (LDL) cholesterol. Know your numbers, they are one indicator of your risk for heart attack and stroke. Vaccine: Tetanus every 10 years 06/11/2011 Immunization to help prevent you from getting the seriousdisease Tetanus (Lockjaw). Your Upcoming Appointments Date Time Location Reason Provider No Appointments found Your Goals/Additional instructions: Source: [facility] POWERCHART Document Id: [id number] Electronically signed by Conversion, [facility] [employer]er [id number] at 03/14/2017 2:30 PM CDT Miscellaneous - Jennifer Zhao M.D. - 06/11/2011 11:20 AM CDT Ambulatory Depart Summary [id number] [place] [address] Visit Information Name: ANGELES MORALES Current Date: 06/11/2011 11:20:10 Primary Care Provider: JENNIFER POON MD ANGELES MORALES has been given the following list of medications: Your Medications It is important to take your medications as directed. Use a pill box or chart to help remind you to take your medications. Please let your doctor or nurse know if you have problems taking your medications. Medication/Strength Dose Route Frequency Indications/Special Instructions/Comments predniSONE (predniSONE 20 mg oral tablet) 40 mg Oral once a day for 5 Days Additional Information: Yes - Current list of reconciled medications is provided and explained to the patient and/or family, guardian/caregiver. Source: [facility] GreenerUCHART Document Id: [id number] Miscellaneous - Angela Rivers L.P.N. - 06/11/2011 10:39 AM CDT Ambulatory Vitals Height Weight Ambulatory Vitals Height Weight Entered On: 06/11/2011 10:40 CDT Performed On: 06/11/2011 10:39 CDT by ANGELA RIVERS LPN Vitals/Ht/Wt Systolic Blood Pressure: 172mmHg (>HHI) Diastolic Blood Pressure: 110mmHg (>HHI) NIBP Mean: 131mmHg BP Location: Left upper extremity ANGELA RIVERS LPN - 06/11/2011 10:39 CDT Source: [facility]CHART Document Id: [id number] CDT!6 Natcellkateryna - Angela Rivers L.P.N. - 06/11/2011 10:37 AM CDT Health Assessment Health Assessment Entered On: 06/11/2011 10:37 CDT Performed On: 06/11/2011 10:37 CDT by ANGELA RIVERS LPN Nutrition Nutrition Risk Factors by History Adult: None ANGELA RIVERS LPN - 06/11/2011 10:37 CDT Functional Current Daily Living Assistance: None ANGELA RIVERS LPN - 06/11/2011 10:37 CDT Dependent Habits Tobacco Use/Currently Using: No Exposure to Tobacco Smoke: Care provider denies smoking in home ANGELA RIVERS LPN - 06/11/2011 10:37 CDT Caffeine Use Grid Caffeine Use: Current Type: Soft drinks Frequency: Daily ANGELA RIVERS LPN - 06/11/2011 10:37 CDT Recreational Drug Use Grid Drug Use: None ANGELA RIVERS LPN - 06/11/2011 10:37 CDT Psychosocial Domestic Abuse Concerns: None ANGELA RIVERS LPN - 06/11/2011 10:37 CDT Advance Directive Advanced Directives: No ANGELA RIVERS LPN - 06/11/2011 10:37 CDT Educ Needs Learning Style Preference Adult Grid Patient: None Family: None ANGELA RIVERS LPN - 06/11/2011 10:37 CDT Source: [employer] Document Id: [id number] CDT!24 Miscellaneous - Angela Rivers LSukhiP.N. 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 draining, and crust in am, watery Temperature Core: 35.6C(Converted to: 96.1DegF) (LOW) Peripheral Pulse Rate: 76/min Respiratory Rate: 16/min Systolic Blood Pressure: 166mmHg (>HHI) Diastolic Blood Pressure: 110mmHg (>HHI) NIBP Mean: 129mmHg BP Location: Left upper extremity Heart Rhythm: Regular Height: 160.90cm(Converted to: 5ft 3inch(es), 63.35inch(es)) Actual Weight: 99.500kg(Converted to: 219lb 6oz) Weight Source: Standing scale Dosing Weight Clinic: 99.50kg Clinic BSA: 2.11 Body Mass Index: 38.43kg/m2 ANGELA RIVERS LPN - 06/11/2011 10:31 CDT Subjective Pain Symptoms: No ANGELA RIVERS LPN - 06/11/2011 10:31 CDT Dependent Habits Tobacco Use/Currently Using: No Tobacco Use/Last 12 months: No Exposure to Tobacco Smoke: Care provider denies smoking in home Alcohol Use: No ANGELA RIVERS LPN - 06/11/2011 10:31 CDT Caffeine Use Grid Caffeine Use: Current Type: Soft drinks Frequency: Daily ANGELA RIVERS LPN - 06/11/2011 10:31 CDT Recreational Drug Use Grid Drug Use: None ANGELA RIVERS LPN - 06/11/2011 10:31 CDT Allergy Source: [employer] Document Id: [id number] CDT!32 documented in this encounter Plan of Treatment Not on filedocumented as of this encounter Visit Diagnoses Not on filedocumented in this encounter
--- OUTSIDE RECORDS SUMMARY | 2022-07-27 09:27 | XMS_ITS | Encounter Summary ---
:1960 Author Organization [facility] Address [address] [place] [address] Care Team Providers Name Role Phone Unavailable Primary Care Provider Unavailable Encounter Details Date Type Department Care Team Description 08/08/2016 - Hospital Encounter HX RST UNIT 5-4 08/09/2016 GYNECOLOGY Social History Tobacco Use Types Packs/Day Years [...] 06/26/2021 relatives? How often do you attend denominational or adventism services? Patien t refused 06/26/2021 Do you belong to any clubs or organizations such as Patient refused 06/26/2021 denominational groups, unions, fraternal or athletic groups, or [...] Sign Reading Time Taken Comments Blood Pressure 124/70 08/09/2016 9:50 AM NIBP - Value from CDT Chartplus. Pulse 73 08/09/2016 9:50 AM Value from artplus. CDT Temperature - - Respiratory Rate 16 08/09/2016 9:50 AM CDT Oxygen Saturation - - Inhaled Oxygen - - Concentration Weight 94.4 kg (208 lb 1.8 08/08/2016 3:37 PM :94.40 Vital sign oz) CDT result from CDM. Height 160 cm (5' 2.99) 08/08/2016 3:37 PM :160.00V ital sign CDT result from CDM. Body Mass Index 36.88 08/08/2016 3:37 PM CDT documented in this encounter Medications at Time of Discharge Medication Sig Dispensed Refills Start Date End Date administration supplies 0 02/12/2015 (INPEN, FOR NOVOLOG,) injector pen acetaminophen (TYLENOL Take 1-2 tablets by 0 [...] mg tablet documented as of this encounter Plan of Treatment Not on filedocumented as of this encounter Procedures Procedure Name Priority Date/Time Associated Comments Diagnosis CYTOLOGY Routine 08/10/2016 10:09 AM Results for this CDT procedure are i n the results section. HXGENERAL PATHOLOGY Routine 08/10/2016 7:29 AM Re sults for this REPORT CDT procedure are i n the results section. GLUCOSE POCT, B Routine 08/09/2016 6:35 AM Result s for this CDT procedure are i n the results section. CBC WITHOUT Routine 08/09/2016 12:41 AM Results for this DIFFERENTIAL, B CDT procedure ar e in the results section. CREATININE WITH Routine 08/09/2016 12:41 AM Resul ts for this EGFR, S/P CDT procedure are i n the results section. GLUCOSE POCT, B Routine 08/08/2016 9:40 PM Result s for this CDT procedure are i n the results section. GLUCOSE POCT, B Routine 08/08/2016 6:04 PM Result s for this CDT procedure are i n the results section. GLUCOSE POCT, B Routine 08/08/2016 3:25 PM Result s for this CDT procedure are i n the results section. GLUCOSE, WHOLE BLOOD Routine 08/08/2016 2:22 PM R esults for this CDT procedure are i n the results section. GLUCOSE, WHOLE BLOOD Routine 08/08/2016 12:45 PM Results for this CDT procedure are i n the results section. HEMOGLOBIN, B Routine 08/08/2016 12:45 PM Results for this CDT procedure are i n the results section. DX CHEST AP OR PA Routine 08/08/2016 9:32 AM Resu lts for this AND LATERAL 2 VIEWS CDT procedur e are in the results section. CT ABDOMEN PELVIS Routine 08/08/2016 5:24 AM Resu lts for this WITHOUT IV CONTRAST CDT procedur e are in the results section. documented in this encounter Results Cytology (08/10/2016 10:09 AM CDT) Specimen Anatomical Collection Method Collection Time Receive d Time (Source) Location / / Volume Laterality 08/10/2016 10:09 08/10/2016 AM CDT 10:09 AM CDT Narrative [facility] - 08/10/2016 10:09 AM CDT ??08/08/2016 Cytology Non-Gynecological ?? ([id number]) ? Requested By: ??Stefan Fajardo M.D. ??[phone] ? SPECIMEN DESCRIPTION: A. ??Pelvic Wash: ??Received 100cc of b loody fluid ?DIAGNOSIS: A. ??Pelvic Wash: ??Negative for malign denae. ? 08/11/2016 14:10 Interpreted by: ??Antonino Christian M.D., Ph.D. [phone] Report electronically signed by Travis Christian M.D., Ph.D. ?? Transcribed by: ghassan ??08/11/2016 13:08:1 4 ? Procedure Note 01/01/2018 08/08/2016 Cytology Non-Gynecological ( [id number]) Requested By: Stefan Fajardo M.D. [phone] SPECIMEN DESCRIPTION: A. Pelvic Wash: Received 100cc of blood y fluid DIAGNOSIS: A. Pelvic Wash: Negative for malignancy . 08/11/2016 14:10 Interpreted by: Travis Christian M.D., Ph.D. [phone] Report electronically signed by Travis Christian M.D., Ph.D. Transcribed by: ghassan 08/11/2016 13:08:14 Stefan Fajardo M.D. LAB PATHOLOGY/CYTOLOGY ORDER KENDRA Performing Organization Address City/State/ZIP Code Phon e Number [facility] - [address] [place], [place] [address] [facility] Hx general Pathology Report (08/10/2016 7:29 AM CDT) Specimen Anatomical Collection Method Collection Time Receive d Time (Source) Location / / Volume Laterality 08/10/2016 7:29 AM 6 7:29 CDT AM CDT Narrative [facility] - [facility] - 08/10/2016 7:29 AM CDT ??08/08/2016 Surgical Pathology ?([id number]) ? Requested By: Stefan Fajardo M.D. ??[phone] ? SLIDE DISPOSITION: ? DIAGNOSIS: ?? A. ??Ovary and fallopian tube, left, sa lpingo-oophorectomy: ??Ruptured hemorrhagic single cyst. ??Fallopian tu be without diagnostic abnormality. ? B. ??Ovary and fallopian tube, right, s alpingo-oophorectomy: ?? Atrophic ovary and unremarkable fallopi an tube. ? Participated in interpretation: Dr. Rohan Goldberg. Pager: [phone]. ?? As the signing pathologist, I verify th at I have examined all relevant slides/materials for the speci men(s) and rendered or confirmed the diagnosis. ? 08/12/2016 12:51 Interpreted by: Richard Reyes M.D. [phone] Report electronically signed by Richard Reyes M.D. Transcribed by: shiela 08/10/2016 09:35:03 ? GROSS DESCRIPTION: A. ??Received in formalin labeled left fallopian tube and ovary is a 195 gram, 17 x 15 x 3.5 cm aggregate of fragments of cyst wall admixed with blood clot, ranging in siz e from 0.6 cm to 7.0 cm in greatest dimension. ??The fragments of cyst wall are smooth and translucent. ??No masses are grossly id entified. ??Possible ovarian parenchyma and fallopian tube are ident ified and submitted. ?? Engine Dynamometer Tester sections are submitted f or permanent sections only. ?? Grossed by JOLENE. ?? B. ??Received in formalin labeled righ t fallopian tube and ovary is a 2.7 x 1.7 x 1.5 cm ovary with a 1.6 x 0.5 cm previously ligated fallopian tube. ??The ovary has a get h outer surface and solid cut surface. ??The fallopian tube has multi ple paratubal cysts. ?? Engine Dynamometer Tester sections are submitted f or permanent sections only. ?? Grossed by JOLENE. BLOCK SUMMARY: Part A: ??Left fallopian tube and ovary ?1 Lt cyst wall-1 ?2 Lt cyst wall-2 ?3 Lt ovary ?4 Lt fallopian tube ? ?? Part B: ??Right fallopian tube and ovar y ?1 Rt fallopian tube/ovary ? Procedure Note 01/01/2018 08/08/2016 Surgical Pathology ([id number]) Requested By: Stefan Fajardo M.D. [phone] SLIDE DISPOSITION: DIAGNOSIS: A. Ovary and fallopian tube, left, salp ingo-oophorectomy: Ruptured hemorrhagic single cyst. Fallopian tube without diagnostic abnormality. B. Ovary and fallopian tube, right, balbina pingo-oophorectomy: Atrophic ovary and unremarkable fallopi an tube. Participated in interpretation: Dr. Rohan Goldberg. Pager: [phone]. As the signing pathologist, I verify th at I have examined all relevant slides/materials for the speci men(s) and rendered or confirmed the diagnosis. 08/12/2016 12:51 Interpreted by: Richard Reyes M.D. [phone] Report electronically signed by Richard Reyes M.D. Transcribed by: shiela 08/10/2016 09:35:03 GROSS DESCRIPTION: A. Received in formalin labeled left f allopian tube and ovary is a 195 gram, 17 x 15 x 3.5 cm aggregate of fragments of cyst wall admixed with blood clot, ranging in siz e from 0.6 cm to 7.0 cm in greatest dimension. The fragments of cy st wall are smooth and translucent. No masses are grossly iden tified. Possible ovarian parenchyma and fallopian tube are ident ified and submitted. Engine Dynamometer Tester sections are submitted f or permanent sections only. Grossed by JOLENE. B. Received in formalin labeled right fallopian tube and ovary is a 2.7 x 1.7 x 1.5 cm ovary with a 1.6 x 0.5 cm previously ligated fallopian tube. The ovary has a smooth outer surface and solid cut surface. The fallopian tube has multipl e paratubal cysts. Engine Dynamometer Tester sections are submitted f or permanent sections only. Grossed by JOLENE. BLOCK SUMMARY: Part A: Left fallopian tube and ovary 1 Lt cyst wall-1 2 Lt cyst wall-2 3 Lt ovary ? 4 Lt fallopian tube ? Part B: Right fallopian tube and ovary 1 Rt fallopian tube/ovary Stefan Fajardo M.D. LAB PATHOLOGY/CYTOLOGY ORDER KENDRA Performing Organization Address City/State/ZIP Code Phon e Number [facility] - [address] [place] [phone] [facility] (ABNORMAL) Glucose, POCT (08/09/2016 6:35 AM CDT) [facility] Method Time Signature Glucose, 155 (H) 70 - 140 [facility] POCT, B MG/DL LABORATORIES - [facility] Sample Site, Capillary [facility] Blood Gas, LABORATORIES - POCT [facility] Last Intake > 4 hours [facility] - [facility] Specimen Anatomical Collection Method Collection Time Receive d Time (Source) Location / / Volume Laterality 08/09/2016 6:35 AM 6:35 CDT AM CDT Historical Provider LAB POCT ORDERABLES-MANUAL Performing Organization Address City/State/ZIP Code Phon e Number [facility] - [address] [place] [phone] [facility] (ABNORMAL) Creatinine with Estimated GFR (MDRD) (08/09/2016 12:41 AM CDT) [facility] Method Time Signature Creatinine 1.6 (H) 0.6 - 1.1 [facility] MG/DL LABORATORIES - [facility] eGFR 34 (L) >60 [facility] Non-Black/Afric ML/MIN/BS LABORATORIES - an Dutch A [facility] eGFR-Black/Afri 41 (L) >60 [facility] can Dutch ML/MIN/BS LABORATORIES - A [facility] Specimen Anatomical Collection Method Collection Time Receive d Time (Source) Location / / Volume Laterality 08/09/2016 12:41 08/09/2016 AM CDT 12:41 AM CDT Ce Villatoro M.D. LAB BLOOD ADD-ON Performing Organization Address City/State/ZIP Code Phon e Number [facility] - [address] [place] [phone] [facility] (ABNORMAL) CBC without Differential (08/09/2016 12:41 AM CDT) [facility] Method Time Signature Hemoglobin 9.9 (L) 12.0 - [facility] 15.5 G/DL LABORATORIES - [facility] Hematocrit 29.0 (L) 34.9 - [facility] 44.5 % LABORATORIES - [facility] Leukocytes 16.1 (H) 3.5 - [facility] 10.5 LABORATORIES - X10(9)/L [facility] Erythrocytes 3.44 (L) 3.90 - [facility] 5.03 LABORATORIES - X10(12)/L [facility] MCV 84.3 81.6 - [facility] 98.3 FL LABORATORIES - [facility] RBC Distrib 13.1 11.9 - [facility] Width 15.5 % LABORATORIES - [facility] Platelet Count 140 (L) 150 - 450 [facility] X10(9)/L LABORATORIES - [facility] Specimen Anatomical Collection Method Collection Time Receive d Time (Source) Location / / Volume Laterality 08/09/2016 12:41 08/09/2016 AM CDT 12:41 AM CDT Ce Villatoro M.D. LAB BLOOD ADD-ON Performing Organization Address City/[facility]/ZIP Code Phon e Number [facility] - [address] [place] [phone] [facility] (ABNORMAL) Glucose, POCT (08/08/2016 9:40 PM CDT) [facility] Method Time Signature Last Intake 3-4 hours [facility] Glucose, 167 (H) 70 - 140 [facility] POCT, B MG/DL LABORATORIES - [facility] Sample Site, Capillary [facility] Blood Gas, LABORATORIES - POCT [facility] Specimen Anatomical Collection Method Collection Time Receive d Time (Source) Location / / Volume Laterality 08/08/2016 9:40 PM 6 9:40 CDT PM CDT Historical Provider LAB POCT ORDERABLES-MANUAL Performing Organization Address City/[facility] Code Phon e Number [facility] - [address] [place] [address] [facility] (ABNORMAL) Glucose, POCT (08/08/2016 6:04 PM CDT) [facility] Method Time Signature Last Intake NPO [facility] Glucose, 223 (H) 70 - 140 [facility] POCT, B MG/DL LABORATORIES - [facility] Sample Site, Capillary [facility] Blood Gas, LABORATORIES - POCT [facility] Specimen Anatomical Collection Method Collection Time Receive d Time (Source) Location / / Volume Laterality 08/08/2016 6:04 PM 6 6:04 CDT PM CDT Historical Provider LAB POCT ORDERABLES-MANUAL Performing Organization Address City/[facility]/ZIP Code Phon e Number [facility] - [address] [place] [address] [facility] (ABNORMAL) Glucose, POCT (08/08/2016 3:25 PM CDT) Patholo gist Method Time Signature Glucose, POCT, 216 (H) 70 - 140 [facility] B MG/DL [facility] Specimen Anatomical Collection Method Collection Time Receive d Time (Source) Location / / Volume Laterality 08/08/2016 3:25 PM 6 3:25 CDT PM CDT Historical Provider LAB POCT ORDERABLES-MANUAL Performing Organization Address City/[facility] Phon e Number [facility] - [address] [place] [phone] [facility] (ABNORMAL) Glucose, Whole Blood (08/08/2016 2:22 PM CDT) P athologist Signature Glucose, S 261 (H) 70 - 140 [facility] MG/DL [facility] Comment: Drawn in [place] Specimen Anatomical Collection Method Collection Time Receive d Time (Source) Location / / Volume Laterality 08/08/2016 2:22 PM 6 2:22 CDT PM CDT Narrative [facility] - 08/08/2016 2:30 PM CDT Drawn in [place] Eliu Heard M.D. LAB BLOOD TROPONIN Performing Organization Address City/[facility] Code Phon e Number [facility] - [address] [place] [phone] [facility] (ABNORMAL) Glucose, Whole Blood (08/08/2016 12:45 PM CDT) P athologist Signature Glucose, S 299 (H) 70 - 140 [facility] MG/DL [facility] Comment: Drawn in [place] Specimen Anatomical Collection Method Collection Time Receive d Time (Source) Location / / Volume Laterality 08/08/2016 12:45 08/08/2016 PM CDT 12:45 PM CDT Narrative [facility] - 08/08/2016 1:01 PM CDT Drawn in OR Stefan Fajardo M.D. LAB BLOOD TROPONIN Performing Organization Address City/[facility]/ZIP Code Phon e Number [facility] - [address] [place] [phone] [facility] Hemoglobin (08/08/2016 12:45 PM CDT) P athologist Signature Hb 12.1 12.0 - 15.5 [facility] G/DL LABORATORIES - [facility] Comment: Drawn in [place] Specimen Anatomical Collection Method Collection Time Receive d Time (Source) Location / / Volume Laterality 08/08/2016 12:45 08/08/2016 PM CDT 12:45 PM CDT Narrative [facility] - [facility] - 08/08/2016 1:01 PM CDT Drawn in [place] Stefan Fajardo M.D. LAB BLOOD ADD-ON Performing Organization Address City/State/ZIP Code Phon e Number [facility] - [address] [place], [place] [address] [facility] DX Chest AP or PA and Lateral 2 Views (08/08/2016 9:32 AM CDT) Anatomical Region Laterality Modality Chest N/A Radiographic Imaging Specimen (Source) Anatomical Collection Method Collection Time Re ceived Time Location / / Volume Laterality 08/08/2016 9:32 AM CDT Impressions 08/08/2016 9:34 AM CDT Minimal basilar opacities most likely represent atelectasis. Otherwise, no focal consolidation. Remainder negative and unchanged since 12/10/15. Electronically signed by: ?? Uyen Prasad MD [id number] 08-Aug-2016 09:34 Narrative 08/08/2016 9:34 AM CDT 08-Aug-2016 09:32:00 ??Exam: Chest-- 2 Views Indications: Wheezing and cough ORIGINAL REPORT - 08-Aug-2016 09:34:00 EXAM: Chest 2 views: Procedure Note Travis Prasad M.D. - 01/06/2018For matting of this note might be different from the original. 08-Aug-2016 09:32:00 Exam: Chest-- 2 Vie ws Indications: Wheezing and cough ORIGINAL REPORT - 08-Aug-2016 09:34:00 EXAM: Chest 2 views: IMPRESSION: Minimal basilar opacities mo st likely represent atelectasis. Otherwise, no focal consolidation. Remainder negative and unchanged since 12/10/15. Electronically signed by: Uyen Prasad MD [id number] 08-Aug-2016 09:34 Ce Villatoro M.D. IMNoelle DIAGNOSTIC IMAGING PROCE DURES CT Abdomen Pelvis without IV Contrast (08/08/2016 5:24 AM CDT) Anatomical Region Laterality Modality Abdomen, Pelvis N/A Computed Tomography Specimen (Source) Anatomical Collection Method Collection Time Re ceived Time Location / / Volume Laterality 08/08/2016 5:24 AM CDT Impressions 08/08/2016 10:43 AM CDT 1. No definite change in size of the lar ge multicystic right ovarian mass containing thin septations and measuring 13.6 x 12.1 x 10.2 cm (series 2 image 52 and series 3 image 42). Again, differential co nsiderations given prior exams likely re present a ovarian cystadenoma or cyst adenocarcinoma. 2. Due to large size of the right ovaria n mass and the mobility of the associated vascular pedicle, one cannot completely rule out the possibility of ovarian torsion. If clinically suspicious for torsio n, recommend pelvic ultrasound for furth er evaluation. 3. Otherwise, no acute findings in the a bdomen or pelvis to account for the patient's presenting symptom of LLQ pain. OTHER FINDINGS: Persistent small quantity of perihepatic and free fluid in the dependent pelvis. Trace fluid or thickening in the left pa racolic gutter. The liver, spleen, gallbladder, kidneys, and adrenal glands are negative for noncontrast appearance. Mild fatty infiltration the pancreas. Splenule. The small bowel is normal in caliber. Sigmoid diverticulosis without convincin g evidence of active diverticulitis. Normal appendix. Moderate stool and gas throughout the co winnie rectal vault. Minimal vascular calcifications. New mild peripheral bronchial wall thick ening with increased mixed dependent atelectasis and linear scarring, greatest in the LLL. Focal atelectasis anteromedial right mid dle lobe. Benign bone island right femoral head. Mild musculoskeletal degenerative change s of the spine. Electronically signed by: ?? Reta James MD [phone] 6 05:51 I have reviewed the films/images and agr ee with the above interpretation. Electronically signed by: ?? Vinita Cadet ??Gayle [phone] 08-Aug-2016 10:4 3 Narrative 08/08/2016 10:43 AM CDT 08-Aug-2016 05:24:00 ??Exam: CT ABDOMEN wo & PELVIS wo Indications: llq abdominal pain - 07/20, guarding and rebound ORIGINAL REPORT - 08-Aug-2016 05:51:00 EXAM: ??CT scan of the Abdomen and Pelvi s without IV contrast COMPARISON: ??CT abdomen and pelvis with out IV contrast 07/11/2016 and pelvic ultrasound 07/11/2016. Procedure Note Russell Cadet M.D. - 01/06/2018Forma tting of this note might be different from the original. 08-Aug-2016 05:24:00 Exam: CT ABDOMEN wo & PELVIS wo Indications: llq abdominal pain - 07/20, guarding and rebound ORIGINAL REPORT - 08-Aug-2016 05:51:00 EXAM: CT scan of the Abdomen and Pelvis without IV contrast COMPARISON: CT abdomen and pelvis withou t IV contrast 07/11/2016 and pelvic ultrasound 07/11/2016. IMPRESSION: 1. No definite change in size of the lar ge multicystic right ovarian mass containing thin septations and measuring 13.6 x 12.1 x 10.2 cm (series 2 image 52 and series 3 image 42). Again, differential considerations given prior exams likely represent a ovarian c ystadenoma or cyst adenocarcinoma. 2. Due to large size of the right ovaria n mass and the mobility of the associated vascular pedicle, one cannot completely rule out the possibility of ovarian torsion. If clinically suspicious for torsion, recommend pelvic ultrasound for further evaluation. 3. Otherwise, no acute findings in the a bdomen or pelvis to account for the patient's presenting symptom of LLQ pain. OTHER FINDINGS: Persistent small quantity of perihepatic and free fluid in the dependent pelvis. Trace fluid or thickening in the left pa racolic gutter. The liver, spleen, gallbladder, kidneys, and adrenal glands are negative for noncontrast appearance. Mild fatty infiltration the pancreas. Splenule. The small bowel is normal in caliber. Sigmoid diverticulosis without convincin g evidence of active diverticulitis. Normal appendix. Moderate stool and gas throughout the co winnie rectal vault. Minimal vascular calcifications. New mild peripheral bronchial wall thick ening with increased mixed dependent atelectasis and linear scarring, greatest in the LLL. Focal atelectasis anteromedial right mid dle lobe. Benign bone island right femoral head. Mild musculoskeletal degenerative change s of the spine. Electronically signed by: Reta James MD [phone] 05:51 I have reviewed the films/images and agr ee with the above interpretation. Electronically signed by: Vinita Cadet M.D. [phone] 08-Aug-2016 10:43 German Mcclure Jr., M.D. IMG CT PROCEDURES documented in this encounter Visit Diagnoses Not on filedocumented in this encounter
--- OUTSIDE RECORDS SUMMARY | 2022-07-27 09:27 | XMS_ITS | Encounter Summary ---
:1960 Author Organization [facility] Address [address] [place] [address] Care Team Providers Name Role Phone Unavailable Primary Care Provider Unavailable Encounter Details Date Type Department Care Team Description 08/11/2016 Hospital Encounter HX [facility] ED Suzanne Cavanaugh, P.A.-C. [id number] [id number] (Wo rk) Social History Tobacco [...] 06/26/2021 relatives? How often do you attend gnosticism or congregational services? Patien t refused 06/26/2021 Do you belong to any clubs or organizations such as Patient refused 06/26/2021 gnosticism groups, unions, fraternal or athletic groups, or [...] Sign Reading Time Taken Comments Blood Pressure 160/74 08/11/2016 9:40 AM CDT Pulse 79 08/11/2016 9:40 AM CDT Temperature - - Respiratory Rate 18 08/11/2016 9:40 AM CDT Oxygen Saturation - - Inhaled Oxygen Concentration - - Weight - - Height 160 cm (5' 2.99) 08/11/2016 8:59 AM CDT Body Mass Index - - documented in this encounter Discharge Summaries Anthony Terrell RSukhiN. - 08/11/2016 9:54 AM CDT ED Discharge Instructions [address] [address] Name: ANGELES MORALES Date of : 1960 12:00 AM Visit Date: 08/11/2016 7:33 AM [facility] Number: [id number] Address: [address] [place] [phone] Primary Care Provider: PCP, ELSEWHERE IMPORTANT: [facility] in [place] would like to thank you for allowing us to assist you with your healthcare needs. The following includes patient education materials and informationregarding your injury/illness. Diagnosis: Anemia NOS; Nausea NOS Follow-Up Instructions: Your Upcoming Appointments: Date Time Location Provider No Appointments found Patient Education Materials: Nausea Vomiting and diarrhea help the body remove harmful substances. This may be a virus (stomach flu) or bacteria (food poisoning). Allergy to a food or medication may also cause vomiting or diarrhea. They also can sometimes be triggered by severe stress or worry (anxiety). It is often hard to pinpoint an e xact cause, even with testing. Vomiting and diarrhea often resolve within a day or two without problems. If they continue, though, they can lead to dehydration (excess fluid loss). This can be serious if not treated. Home care The following guidelines will help you with your illness: ?? Be cautious with medications. Ask your health care provider before you take nausea or diarrhea medication. The body often uses diarrhea and vomiting to get rid of a substance that may be toxic or cause harm. So medications that slow or stop this may not be recommended. Certain yjve-kvz-oqkzifp medications can help soothe stomach upset. ?? Drink or sip liquids to avoid dehydration. ?? If you are dehydrated, the doctor may suggest an oral rehydration solution (known as ORS). They can be bought without a prescription in grocery and drug stores. Use only prepared ORS. Do not try to make your own. The mix of water, salt, and electrolytes is the best at replacing what you lose when you are ill. If you cannot get ORS solution, a sports drink diluted with water in equal amounts (one cup of sports drink to one cup of water) is an okay substitute. ?? Take small sips frequently to help avoid excess fluid loss. If you stop vomiting, you can advanceyour diet, but some things can worsen diarrhea. ?? If the thought of drinking something makes you queasy, suck on ice chips. ?? Avoid sugary beverages, such as juices and sodas. These may make diarrhea worse. ?? Slowly return to your normal diet. ?? As your desire to eat returns, eat what appeals to you. You do not need to eat special foods. At first, avoid rich, fatty foods or cows milk. Do not eat too much at one time. You may be told to avoid certain foods until you feel better. ?? Wash your hands. Frequent handwashing can help prevent the spread of infection. Follow-up care Follow up as advised by the doctor or our staff. When to seek medical care Get prompt medical attention if any of the following occur: ?? Bloody or black vomit or stools. ?? Severe, steady abdominal pain or any abdominal pain that is getting worse. ?? Severe headache or stiff neck ?? An inability to hold down even sips of liquids for more than 12 hours. ?? Vomiting that lasts more than 24 hours. ?? Diarrhea that lasts more than 24 hours. ?? Fever of 100.4??F (38??C) or higher that lasts more than 48 hours, or as directed by your health care provider ?? Yellowish color to your skin or the whites of your eyes. ?? Signs of dehydration, such as dry mouth, little urine (less than every 6 hours), or very dark urine. ?? Severe weakness, dizziness or lightheadedness ?? [id number] [facility], [address] [place] [address], [place] [address]. All rights reserved. This information is not [...] if you dont have one. Go to [email or web address] and click on Create Your Account. Then, follow the directions to complete the online form. Youll be asked for your [facility] number which you can find at the top of this document. ED Tests and Procedures: Order Status Automated Diff-5 Part Completed CBC (includes Auto Differential) Completed Discharge Prescriptions & Home Medications: Medication/Strength Dose Route Frequency Indications/Special Instructions/Comments/Notes ondansetron (Zofran ODT 8 mg oral tablet, disintegrating) 8 mg Oral every 8 hours promethazine (Phenergan 25 mg oral tablet) 25 mg Oral every 4 hours as needed for Nausea/vomiting docusate (Colace) Oral once a day as needed for Constipation oxyCODONE (oxyCODONE) 5 mg Oral every 4 hours as needed for Pain acetaminophen (Tylenol) 1,000 mg Oral every 6 hours *oxyCODONE-acetaminophen (oxyCODONE-acetaminophen 5 mg-325 mg oral tablet) 1 [...] (metoprolol) 75 mg Oral once a day * You have let us know that you are not taking this medication as listed. Please talk with your primary care provider or the health care provider who prescribed the medication as soon as possible. Comment: Attention: If you have any medications [...] arrange a ride home with a responsible constitution party. MARICRUZ Reardon SALLY JEAN , or responsible constitution party have received this information and my [...] arrange a ride home with a responsible constitution party. MARICRUZ Reardon SALLY JEAN , or responsible constitution party have received this information and my questions have been answered. I have discussed any challenges I see with this plan with the nurse or physician. Patient Signature or Responsible Democrat/Relationship Date Time Provider Signature Date Time This document has images extracted. Please consider using [employer] for all your patient education needs. Source: [employer] Document Id: [id number] Anthony Terrell R.N. - 08/11/2016 9:54 AM CDT ED Depart Summary [facility] Emergency Department Clinical Discharge Summary PERSON INFORMATION Name ANGELES MORALES Age 55 Years 1960 12:00 AM Sex Female Language Micronesian PCP PCP, ELSEWHERE Marital Status Visit Id Visit Reason Nausea; nausea Specialty Enc Type Emergency Med Service Emergency Medicine Referred by Track Group [facility] ED Discharge 08/11/2016 9:50 AM Tracking Id [id number] Checkout 08/11/2016 9:50 AM Checkin 08/11/2016 7:33 AM Acuity 3 -Urgent Dispo Type * Discharged to Home or Self Care Arrival 08/11/2016 7:33 AM Reg Status Complete LOS 000 02:17 Address: [address] [place] [phone] Comment: PROVIDER INFORMATION Provider Role Provider Contact Time ANTHONY TERRELL [employer] Nurse 08/11/16 07:40 ARA CAVANAUGH PA-C ED Provider 08/11/16 07:43 CALISTA CAMACHO [employer] Nurse 08/11/16 08:32 DIAGNOSIS Anemia NOS; Nausea NOS Comment: PATIENT EDUCATION INFORMATION Instructions: VOMITING AND DIARRHEA, Nonspecific (Adult) [facility]: [facility] Id: [id number] documented in this encounter Medications at Time [...] documented as of this encounter ED Notes Anthony Terrell R.N. - 08/11/2016 9:53 AM CDT ED Pain Assessment ED Pain Assessment Entered On: 08/11/2016 9:53 CDT Performed On: 08/11/2016 9:53 CDT by ANTHONY TERRELL RN Pain Assessment Pain Symptoms : No ANTHONY TERRELL RN - 08/11/2016 9:53 CDT Source: [employer] Document Id: [id number] CDT!3 Anthony Terrell R.N. - 08/11/2016 9:52 AM CDT ED Disposition Summary ED Disposition Summary Entered On: 08/11/2016 9:53 CDT Performed On: 08/11/2016 9:52 CDT by ANTHONY TERRELL RN ED Disposition Summary Present in Room During Exam/Procedure : Significant other Mode of Discharge : Ambulatory Transportation : Private vehicle Printed Discharge Instructions Given to Patient : Yes Patient Status at Discharge from ED : Improved ANTHONY TERRELL RN - 08/11/2016 9:52 CDT Source: [employer] Document Id: [id number] CDT!7 Anthony Terrell R.N. - 08/11/2016 9:29 AM CDT ED Nurse Reassess ED Nurse Reassess Entered On: 08/11/2016 9:31 CDT Performed On: 08/11/2016 9:29 CDT by ANTHOYN TERRELL RN Pain Assessment Pain Symptoms : No ANTHONY TERRELL RN - 08/11/2016 9:29 CDT GI Reassess GI Patient Stated Symptoms : Nausea, Other: Nausea is improving from the time patient came into the ED. ANTHONY TERRELL RN - 08/11/2016 9:29 CDT Source: [facility] [email or web address] Document Id: [id number] CDT!5 Ara Cavanaugh P.A.-C. - 08/11/2016 8:12 AM CDT Nausea Patient: ANGELES MORALES Age: 55 years Sex: Female : 1960 Author: ARA CAVANAUGH PA-C Attachments: None Associated Diagnosis: Nausea NOS; Anemia NOS Basic Information Additional information: Chief Complaint from Nursing Triage Note : Chief Complaint Description 08/11/2016 8:00 CDT Chief Complaint Description See triage note 08/11/2016 7:41 CDT Chief Complaint Description Patient had abdominal surgery on Sat. and was feeling fine until Mon. night. Patient started to experiance nausea. . History of Present Illness 55 y/o female s/p bialteral lap salping-oophrectomy on 08/08/16 secondary to R adenexal mass arrivesin the ED today with c/o nausea. Pt states she developed nasea last night. She has not taken any anti-emetic and has not vomited. Appetite has been close to normal. Pain has been controlled well with tylenol. Denies fever, change in pain, chills, dizziness. Pt has noticed bruising to abdomen near incsigion sight. Denies warmth to touch or dischage from incistion. Review of Systems Constitutional symptoms: No fever, no chills, no sweats or no weakness. Skin symptoms: No rash. Eye symptoms: Vision unchanged. ENMT symptoms: No sore throat. Respiratory symptoms: No shortness of breath, no orthopnea or no cough. Cardiovascular symptoms: No chest pain, no palpitations, no tachycardia, no syncope or no diaphoresis. Gastrointestinal symptoms: Nausea, but no abdominal pain, no vomiting, no diarrhea, no constipation or no rectal bleeding. Genitourinary symptoms: No dysuria, no hematuria, no vaginal bleeding or no vaginal discharge. Musculoskeletal symptoms: No back pain or no Muscle pain. Neurologic symptoms: No headache or no dizziness. Additional review of systems information: All other systems reviewed and otherwise negative. Health Status Allergies: Allergic Reactions (Selected) Severity Not Documented Amoxicillin- No reactions were documented. NSAIDs- No reactions were documented.. Past Medical/ Family/ Social History Medical history: No active or resolved past medical history items have been selected or recorded.. Surgical history: Colonoscopy ([id number]) on 07/22/2016 at 55 Years. Pap smear ([id number]) on 03/11/2014 at 53 Years. Ablation ([id number]) in 2005 at 45 Years. Comments: 06/11/2011 10:39 - ANGELA LEONARD [employer] Uterine. Family history: No family history items have been selected or recorded.. Physical Examination Vital Signs: Vital Signs 08/11/2016 7:41 CDT Temperature Core 37.3 DegC Peripheral Pulse Rate 66 /min Respiratory Rate 20 /min SpO2 97 % Systolic Blood Pressure 153 mmHg HI Diastolic Blood Pressure 72 mmHg Mean Arterial Pressure 99 mmHg BP Location Left upper , Measurements 08/11/2016 7:41 CDT Height 160 cm Height Source Stated Dosing Weight 94.00 kg NA Estimated Weight 94 kg , SpO2 08/11/2016 7:41 CDT SpO2 97 % . General: Alert and no acute distress. Skin: Warm and no rash. Head: Normocephalic and atraumatic. Neck: No JVD. Eye: Pupils are equal, round and reactive to light. Ears, nose, mouth and throat: Oral mucosa moist and no pharyngeal erythema or exudate. Cardiovascular: Regular rate and rhythm, No murmur, Normal peripheral perfusion and No edema. Respiratory: Lungs are clear to auscultation, respirations are non-labored, breath sounds are equal and Symmetrical chest wall expansion. Gastrointestinal: Soft, Nontender, Non distended, Normal bowel sounds, No organomegaly, , Guarding: Negative, Rebound: Negative and Signs: Ecchymosis present surrounding incision site. No induration, warmth to touch, or discharge. No signs of infection. Abd exam is benign. , McBurney's negative, Psoas negative, Ruiz's negative, Rovsing's negative. Back: Nontender. Neurological: Alert and oriented to person, place, time, and situation. Psychiatric: Cooperative and appropriate mood & affect. Medical Decision Making Rationale:Pt appears well. Her HGB has improved to 10.0 up from 9 after surgery 2 days ago. Abd examis benign. Ecchyomosis was present on discharge from [place]. Pt's nausea improved in ED after phenergan. Discussed BRAT diet, food with medicaion, and the importance of f/u within 48 hours with her surgeon. She will see me in the ED if she is unable to f/u promptly. RTER warning are given and pt isdischarged in good condtion. . OrdersLaunch Order Profile (Selected) Inpatient Orders Ordered Discharge ED Patient: Completed Phenergan: 12.5 mg, 0.5 mL, IM, Once Zofran ODT: 8 mg, 2 tab(s), PO, Once Deleted Leo 5 mg-325 mg oral tablet: 1 tab(s), PO, Once Prescriptions Prescribed Phenergan 25 mg oral tablet: 25 mg, 1 tab(s), PO, q4hr, PRN: Nausea/vomiting, 20 tab(s), 0 Refill(s) Zofran ODT 8 mg oral tablet, disintegratin mg, 1 tab(s), PO, q8hr, 10 tab(s), 0 Refill(s). Results review:Lab results : Lab View 08/11/2016 8:14 CDT Hgb 10.0 g/dL LOW Hct 30.4 % LOW WBC 8.8 x10(9)/L RBC 3.49 x10(12)/L LOW MCV 87.1 fL RDW 12.5 % Platelet 122 x10(9)/L LOW Neutro Absolute 7.25 10(9)/L HI Lymph Absolute 0.80 x10(9)/L LOW Upson Absolute 0.60 x10(9)/L Eos Absolute 0.10 x10(9)/L Baso Absolute 0.03 x10(9)/L CBC Comment slide reviewed . Impression and Plan Diagnosis Nausea NOS (Discharge, Medical) Anemia NOS (Discharge, Medical) Plan Condition: Improved. Prescriptions: Prescription Development Trainer Pharmacy: Zofran ODT 8 mg oral tablet, disintegrating (Prescribe): 8 mg, 1 tab(s), PO, q8hr, 10 tab(s), 0 Refill(s) Phenergan 25 mg oral tablet (Prescribe): 25 mg, 1 tab(s), PO, q4hr, PRN: Nausea/vomiting, 20 tab(s),0 Refill(s). Patient was given the following educational materials: VOMITING AND DIARRHEA, Nonspecific (Adult). Follow up with: Primary Care Physician, In: 2 day(s). Counseled: Patient. Orders: Launch Orders Patient Care: Discharge ED Patient (Order Processing): 08/11/2016 9:43 CDT. Electronically Signed By: ARA CAVANAUGH PA-C On: 08/11/2016 10:44 AM Modified by and Electronically Signed by: ARA CAVANAUGH PA-C On: 08/11/2016 09:43 AM Co-Signed By: PRICILA TIAN MD On: 08/12/2016 08:55 AM This document has images extracted. Source: [facility] [employer]ART Document Id: [id number]} Anthony Terrell, RSukhiNSukhi - 08/11/2016 8:00 AM CDT ED Primary Assessment Document Has Been Updated ED Primary Assessment Entered On: 08/11/2016 8:03 CDT Performed On: 08/11/2016 8:00 CDT by ANTHONY TERRELL RN Reason For Visit (As Of: 08/11/2016 08:03:46 CDT) Problems(Active) Screening Cancer Colon (ICD-10-CM :Z12.11 [...] ; LifeCycle Status: Active ; Responsible Provider: PALMIRA COHN MD; Vocabulary: ICD-10-CM Diagnoses(Active) Nausea Date: 08/11/2016 ; Diagnosis Type: Reason For Visit ; Confirmation: Complaint of ; Clinical Dx: Nausea ; Classification: Medical ; Clinical Service: Emergency medicine ; Code: PNED ; Probability: 0 ; Diagnosis Code: [id number] Triage Chief Complaint Description : See triage note Mode of Arrival ED : Private vehicle Track : Medical Languages : Micronesian Treatments Prior to Arrival : Acetaminophen Is Patient Female and 13-50 no hysterectomy : ANTHONY Hatfield RN - 08/11/2016 8:00 CDT Pain Assessment Pain Symptoms : ANTHONY Hatfield RN 08/11/2016 8:00 CDT ED Physician Notification Time ED Physician Notification Time : 08/11/2016 7:47 CDT ANTHONY TERRELL RN - 08/11/2016 8:00 CDT Respiratory Airway : Patent Respirations : Unlabored Respiratory Pattern : Regular ANTHONY TERRELL RN 08/11/2016 8:00 CDT Cardiovascular Heart Rhythm : Regular Skin Color : Normal for ethnicity Skin Description : Dry Skin Temperature : Warm ANTHONY TERRELL RN - 08/11/2016 8:00 CDT Neurological Last Well Time Known : Not applicable Level of Consciousness : Alert Orientation : Oriented x 3 Characteristics of Speech : Appropriate for age ANTHONY TERRELL RN 08/11/2016 8:00 CDT ED Psychosocial Affect/Behavior : Calm, Cooperative Domestic Abuse Concerns : None Behavioral Health Screen/Safety Assmt : ANTHONY Hatfield RN - 08/11/2016 8:00 CDT Gastrointestinal Nutrition ED : Adequate ANTHONY TERRELL RN - 08/11/2016 8:00 CDT Musculoskeletal Fall Prevention Education Provided : ANTHONY PAZ RN - 08/11/2016 8:00 CDT Social Habits Exposure to Tobacco Smoke : Care provider denies smoking in home, Other: never Smoking Status : Never smoker Tobacco 2A : No Tobacco Use/Currently Using : No Tobacco Use/Last 30 Days : No Tobacco Use/Last 12 months : No Alcohol Use for AUDIT tool : ANTHOYN Hatfield RN - 08/11/2016 8:00 CDT Alcohol Use Grid Alcohol Use : ANTHONY Hatfield RN 08/11/2016 8:00 CDT Recreational Drug Use Grid Drug Use : None ANTHONY TERRELL RN - 08/11/2016 8:00 CDT Source: [facility] [employer] Document Id: [id number] CDT!48 Anthony Terrell R.N. - 08/11/2016 7:41 AM CDT ED Triage Assessment Document Has Been Updated ED Triage Assessment Entered On: 08/11/2016 7:49 CDT Performed On: 08/11/2016 7:41 CDT by ANTHONY TERRELL RN Reason For Visit (As Of: 08/11/2016 07:49:13 CDT) Problems(Active) Screening Cancer Colon (ICD-10-CM :Z12.11 ) Name of Problem: Screening Cancer Colon ; Recorder: PALMIRA COHN MD; Confirmation: Confirmed ; Classification: Medical ; Code: Z12.11 ; Contributor System: Confabb ; Last Updated: 07/13/2016 15:08 CDT ; Life Cycle Date: 07/13/2016 ; Life Cycle Status:Active ; Responsible Provider: PALMIRA COHN MD; Vocabulary: ICD-10-CM Screening Mammogram Breast Ca (ICD-10-CM :Z12.31 ) Name of Problem: Screening Mammogram Breast Ca ; Recorder: PALMIRA COHN MD; Confirmation: Confirmed ; Classification: Medical ; Code: Z12.31 ; Contributor System: Confabb ; Last Updated: 07/13/2016 15:06 CDT ; Life Cycle Date: 07/13/2016 ; LifeCycle Status: Active ; Responsible Provider: PALMIRA COHN MD; Vocabulary: ICD-10-CM Diagnoses(Active) Nausea Date: 08/11/2016 ; Diagnosis Type: Reason For Visit ; Confirmation: Complaint of ; Clinical Dx: Nausea ; Classification: Medical ; Clinical Service: Emergency medicine ; Code: PNED ; Probability: 0 ; Diagnosis Code: [id number] Triage Chief Complaint Description : Patient had abdominal surgery on Sat. and was feeling fine until Mon. night. Patient started to experiance nausea. Information Given By : Patient, Significant other Present in Room During Exam/Procedure : Significant other Mode of Arrival ED : Private vehicle Track : Medical Languages : Micronesian Vital Signs Assessed : Yes GCS Assessed : Yes Treatments Prior to Arrival : Acetaminophen Is Patient Female and 13-50 no hysterectomy : No ANTHONY TERRELL RN - 08/11/2016 7:41 CDT Vital Signs Temperature Core : 37.3 DegC(Converted to: 99.1 DegF) Peripheral Pulse Rate : 66 /min Respiratory Rate : 20 /min Systolic Blood Pressure : 153 mmHg (HI) Diastolic Blood Pressure : 72 mmHg NIBP Mean : 99 mmHg BP Location : Left upper extremity SpO2 : 97 % Oxygen Therapy : Room air Height : 160 cm(Converted to: 5 ft 3 inch(es)) Height Source : Stated Estimated Weight : 94 kg Estimated Weight Conversion to Pounds : 206.8 lb ANTHONY TERRELL RN - 08/11/2016 7:41 CDT Woodland Coma Eye Opening Response Kaylin : Spontaneously Best Verbal Response [place] : Oriented Best Motor Response [place] : Obeys simple commands Kaylin Coma Score : 15 ANTHONY TERRELL RN - 08/11/2016 7:41 CDT Pain Assessment Pain Symptoms : No ANTHONY TERRELL RN - 08/11/2016 7:41 CDT ED Physician Notification Time ED Physician Notification Time : 08/11/2016 7:47 CDT ANTHONY TERRELL RN - 08/11/2016 7:41 CDT TYRONE TYRONE Level 1 : No TYRONE Level 2 : No TYRONE Level 3 : Many Vital Signs TYRONE : No ANTHONY TERRELL RN - 08/11/2016 7:41 CDT DCP GENERIC CODE Tracking Acuity : 3 -Urgent Tracking Group : [facility] ED ANTHONY TERRELL RN - 08/11/2016 7:41 CDT Allergy (As Of: 08/11/2016 07:49:13 CDT) Allergies (Active) amoxicillin Estimated Onset Date: Unspecified ; Created By: PEDRO MADDEN RN; Reaction Status: Active ; Category: Drug ; Substance: amoxicillin ; Type: Allergy ; Updated By: PEDRO MADDEN RN; Reviewed Date: 08/11/2016 7:48 CDT NSAIDs Estimated Onset Date: Unspecified ; Created By: PEDRO MADDEN RN; Reaction Status: Active ; Category: Drug ; Substance: NSAIDs ; Type: Allergy ; Updated By: PEDRO MADDEN RN; Reviewed Date: 08/11/2016 7:48 CDT ID Screen Drug Resistant Organism : No Travel Within Last 21 Days : No ANTHONY TERRELL RN - 08/11/2016 7:41 CDT Immunizations Immunizations Current : Yes Last Tetanus : < 5 years Pneumovac : None Influenza : This year ANTHONY TERRELL RN - 08/11/2016 7:41 CDT Source: [employer] Document Id: [id number] CDT!51 documented in this encounter Miscellaneous Notes Miscellaneous - Anthony Terrell R.N. - 08/11/2016 9:53 AM CDT Valuables/Belongings Valuables/Belongings Entered On: 08/11/2016 9:53 CDT Performed On: 08/11/2016 9:53 CDT by ANTHONY TERRELL RN Valuables/Belongings Belongings Sent Home With : Red sent with patient Home Medication Disposition : None brought in with patient ANTHONY TERRELL RN - 08/11/2016 9:53 CDT Source: [employer] Document Id: [id number] CDT!4 Miscellaneous - Conversion, Historical Provider Ser - 08/11/2016 9:50 AM CDT Coding Summary-Paper Based CODING DATE: 08/18/2016 FINAL [facility] STATUS: * Discharged to Home or Self Care PAYOR: Commercial Insurance ADMIT DX: R11.0 Nausea REASON FOR VISIT DX: R11.0 Nausea FINAL DX: PRINCIPAL: D64.9 Anemia, unspecified SECONDARY: R11.0 Nausea Z88.1 Allergy status to other antibiotic agents status PROCEDURES DOCTOR NAME DATE NOTE: The code number assigned matches the documented diagnosis and / or procedure in the patient's chart. However, the narrative phrase printed from the coding software may appear abbreviated, or result in slightly different terminology. Coded By: ANGELLA SILVA Date Saved: 08/18/2016 12:24 pm Source: [employer] Document Id: [id number] Miscellaneous - Anthony Terrell R.N. - 08/11/2016 7:33 AM CDT Facility Charge Ticket 2.0 11.0 DX Facility Charge Ticket 2.0 11.0 DX Entered On: 08/11/2016 9:54 CDT Performed On: 08/11/2016 7:33 CDT by ANTHONY TERRELL RN Facility Charge Ticket 2.0 11.0 DX ED Other Charges : Standard ED Encounter TVL Level Translated RTF : Nausea TVL:3 TVL Level for Facility Charge Ticket : Level 3 Arrival Mode Calc : 129 Mode of Arrival ED : Private vehicle [facility] Mode of Arrival Interpreted : Standard [facility] Process Management : None Order Management RTF : Laboratory CBC (includes Auto Differential),08/11/16 08:06,ARA CAVANAUGH PA-C Completed Automated Diff-5 Part,08/11/16 08:16,ARA CAVANAUGH PA-C Completed [facility] Order Management : Lab tests 30 Minutes Critical Care : No Nursing Notes RTF : Triage Forms ED Triage Assessment,08/11/16 07:41,ANTHONY TERRELL RN Nursing Notes ED Primary Assessment,08/11/16 08:00,ANTHONY TERRELL RN ED Nurse Reassess,08/11/16 09:29,ANTHONY TERRELL RN ED Pain Assessment,08/11/16 09:53,ANTHONY TERRELL RN Lynkimberly Nursing Assessment : Triage and 3-5 nursing assessments Lynx Disposition : Discharge Lynx Total Points with Diagnosis Control : 7 Lynx Visit Level : 45794 Level 3 Treatments Prior to Arrival : Acetaminophen ANTHONY TERRELL RN - 08/11/2016 9:53 CDT Source: [facility] POWERCHART Document Id: [id number] CDT!18 documented in this encounter Plan of Treatment Not on filedocumented as of this encounter Procedures Procedure Name Priority Date/Time Associated Diagnosis Comme nts AUTOMATED Routine 08/11/2016 8:14 AM Results f or this DIFFERENTIAL, B CDT procedure ar e in the results section. CBC WITH Routine 08/11/2016 8:14 AM Results f or this DIFFERENTIAL, B CDT procedure ar e in the results section. documented in this encounter Results (ABNORMAL) Automated Differential (08/11/2016 8:14 AM CDT) [facility] gist Method Time Signature Absolute 7.25 (H) 1.70 - POWERCHART Neutrophils 7.00 109L Lymphocytes 0.80 (L) 0.90 - POWERCHART 2.90 X109L Monocytes 0.60 0.30 - POWERCHART 0.90 X109L Eosinophils 0.10 0.05 - POWERCHART 0.50 X109L Absolute 0.03 0.00 - POWERCHART Basophil 0.30 X109L Specimen Anatomical Collection Method Collection Time Receive d Time (Source) Location / / Volume Laterality Blood 08/11/2016 8:14 AM 6 8:14 CDT AM CDT Ara Cavanaugh P.A.-C. LAB BLOOD ADD-ON Performing Organization Address City/State/[facility] Code Phon e Number POWERCHART (ABNORMAL) CBC with Differential (08/11/2016 8:14 AM CDT) [facility] gist Method Time Signature Erythrocytes 3.49 (L) 3.90 - POWERCHART 5.03 [id number] Hemoglobin 10.0 (L) 12.0 - POWERCHART 15.5 GDL Hematocrit 30.4 (L) 34.9 - POWERCHART 44.5 MCV 87.1 81.6 - POWERCHART 98.3 FL HX RDW 12.5 11.9 - POWERCHART 15.5 Platelet Count 122 (L) 150 - 450 POWERCHART X109L Leukocytes 8.8 3.4 - POWERCHART 10.5 X109L Comment slide POWERCHART reviewed Specimen (Source) Anatomical Collection Method Collection Time Re ceived Time Location / / Volume Laterality Blood 08/11/2016 8:14 AM CDT Ara Cavanaugh P.A.-C. LAB BLOOD ADD-ON Performing Organization Address City/State/ZIP Code Phon e Number POWERCHART documented in this encounter Visit Diagnoses Not on filedocumented in this encounter
--- OUTSIDE RECORDS SUMMARY | 2022-07-27 09:27 | XMS_ITS | Encounter Summary ---
:1960 Author Organization [facility] Address [address] [place] [id number] Care Team Providers Name Role Phone Unavailable Primary Care Provider Unavailable Encounter Details Date Type Department Care Team Description 08/08/2016 - 08/21/2016 Hospital Encounter HX NO MAPPING Social [...] How often do you attend mu-ism or baptist services? Patien t refused 06/26/2021 Do you [...] tablet atorvastatin calcium 10 mg. 0 02/12/2014 08/03/2021 (ATORVASTATIN ORAL) cholecalciferol (VITAMIN Take 1 capsule [...]
--- OUTSIDE RECORDS SUMMARY | 2022-07-27 09:27 | XMS_ITS | Encounter Summary ---
:[address] [facility] Address [address] [place] [address] Care Team Providers Name Role Phone Unavailable Primary Care Provider Unavailable Encounter Details Date Type Department Care Team Description 02/08/2018 Hospital Encounter Department of Yes[facility] [address] [address] [place], [place] [phone] [phone] (Work) [phone] Social History Tobacco Use Types Packs/Day Years [...] do you attend zoroastrianism or pentecostal services? Purvien t refused 06/26/2021 Do you [...] or slept in a fpc (including now)? Sex Assigned at Date Recorded [...] Comments Diagnosis BI BREAST RAD - Routine 02/08/2018 1:32 Screening Results for this SCREENING (most inpatients PM CDT Mammogram Breast procedu re are in BILATERAL and all Cancer the results outpatients) section. documented in this encounter Results BI Breast Screening Bilateral (02/08/2018 1:32 PM CDT) Anatomical Region Laterality Modality Breast, Breast Imaging RST LOS Bilateral Mammograp hy Specimen (Source) Anatomical Collection Method Collection Time Re ceived Time Location / / Volume Laterality 02/08/2018 1:58 PM CDT Impressions 02/08/2018 2:00 PM CDT IMPRESSION: ??Negative. RECOMMENDATION: ??Annual Screening Mammo gram ASSESSMENT: ??BI-RADS: 1: Negative. Narrative 02/08/2018 2:00 PM CDT EXAM: ??BI BREAST SCREENING BILATERAL Current study was evaluated with a [employer] Aided Detection (CAD) system. INDICATION: ??Screening mammogram. COMPARISON: ??Prior exams were available for comparison. DENSITY: ??c. The breast(s) are heteroge neously dense, which may obscure small masses. FINDINGS: ??No mammographic findings of malignancy. Procedure Note Dontrell Guo M.D. - 02/08/2018Formatt ing of this note might be different from the original. EXAM: BI BREAST SCREENING BILATERAL Current study was evaluated with a [employer] Aided Detection (CAD) system. INDICATION: Screening mammogram. COMPARISON: Prior exams were available f or comparison. DENSITY: c. The breast(s) are heterogene ously dense, which may obscure small masses. FINDINGS: No mammographic findings of ma lignancy. IMPRESSION: Negative. RECOMMENDATION: Annual Screening Mammogr am ASSESSMENT: BI-RADS: 1: Negative. Yesenia MARIE BI PROCEDURES documented in this encounter Visit Diagnoses Diagnosis Screening Mammogram Breast Cancer documented in this encounter
--- OUTSIDE RECORDS SUMMARY | 2022-07-27 09:27 | XMS_ITS | Encounter Summary ---
:1960 Author Organization [facility] Address [address] [place] [address] Care Team Providers Name Role Phone Unavailable Primary Care Provider Unavailable Encounter Details Date Type Department Care Team Description 07/14/2016 Hospital Encounter HX [facility] Pamella Benton A PRN, C.N.P. [address] [address] [phone] (Wo rk) Social History Tobacco Use [...] How often do you attend pentecostal or restorationism services? Patien t refused 06/26/2021 Do you [...] or slept in a jail (including now)? Sex Assigned at Date Recorded Not on file documented as of this encounter Last Filed Vital Signs Vital Sign Reading Time Taken Comments Blood Pressure 165/80 07/14/2016 8:07 AM CDT Pulse 63 07/14/2016 8:03 AM CDT Temperature - - Respiratory Rate 16 07/14/2016 8:03 AM CDT Oxygen Saturation - - Inhaled Oxygen Concentration - - Weight - - Height 160 cm (5' 2.99) 07/14/2016 8:07 AM CDT Body Mass Index - - [...] mg tablet documented as of this encounter H&P Notes Pamella Faith R.N. - 07/14/2016 8:35 AM CDT CHIEF COMPLAINT/REASON FOR VISIT Healthcare Maintenance exam: female HISTORY OF PRESENT ILLNESS: This patient is a 55 year old P4 postmenopausal female that presents for an annual exam. PCP is at [facility], she reports regular check ups and quarterly lab work there. She has the following issues she would like to discuss: 1. here today for physical and pap smear. Saw Dr. Oviedo WIRER in [place] yesterday regarding pelvic pain, mass found on CT, CA125 pending. Is planning ongoing care for this matter at [facility]. 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 Records have been requested. Her last period was approximately 10 years ago and has had no postmenopausal bleeding She is not on hormone therapy. She has never had abnormal pap requiring Cone or LEEP for treatment Denies vaginal discharge, irritation, pain. PAST MEDICAL/SURGICAL HISTORY Screening Cancer Colon Screening Mammogram Breast Ca SURGICAL Pap smear: 03/11/14 Ablation: 2006 MEDICATIONS amLODIPine: PO,Daily atorvastatin: 20 mg,1 tab(s),PO,Bedtime bisacodyl: 20 mg,4 tab(s),PO,Once glipiZIDE: 10 mg,PO,Daily insulin glargine: 22 units,Subcut.,Daily metoprolol: 75 mg,PO,Daily oxyCODONE-acetaminophen: 1 to 2 tablets,PO,q4hr,PRN (Pain) polyethylene glycol 3350: 1 packet(s),PO,Daily,Contents of 1 packet dissolved in 4-8oz of water, juice, soda, coffee, or tea sitaGLIPtin: 50 mg,PO,Daily ALLERGIES amoxicillin NSAIDs SOCIAL HISTORY Date Time: 07/14/2016 08:03 Tobacco: Smoking Status: Never smoker Exposure: Care provider denies smoking in home Alcohol: Use: No Results Found Recreational Drugs: Use: None Type: No Results Found FAMILY HISTORY Mother: Diabetes, Hypertension SYSTEMS REVIEW [...] abnormalities, no abnormal vaginal bleeding, no vaginal discharge. + leftlower pelvic pain : no burning/pain with urination, +urinary incontinence MUSCULOSKELETAL: no joint or muscle problems SKIN: no skin rashes, no skin sores, no change in moles NEURO: no significant headaches, no slurred speech, no seizures, no dizziness, no loss of consciousness, no memory loss ENDOCRINE: no excessive thirst, no excessive bruising. PSYCH: no depression or anxiety HEALTH CARE MAINTENANCE exercise twice weekly, TDAP up to date 08-12-2015, last mammogram was 07/2016, colonoscopy scheduled for 07/22/16 VITAL SIGNS Temperature Core: 36.9 Peripheral Pulse Rate: 63 Respiratory Rate: 16 BLOOD PRESSURE Systolic Blood Pressure: 165 Critical Diastolic Blood Pressure: 80 MEASUREMENTS Height: 160 PHYSICAL EXAMINATION GENERAL: Patient is in no distress. HEENT: Normocephalic. Oropharynx without lesion of mucosa. NECK: No nodes, no thyromegaly. HEART: Regular rate and rhythm. No murmurs, gallops or rubs noted. LUNGS: Clear to auscultation bilaterally. No expiratory wheeze. No accessary muscles of respiration noted. BREASTS: Soft breast tissue without predominant mass or nodularity. No nipple discharge. No axillaryor supraclavicular adenopathy. ABDOMEN: Non-tender to palpation. No hepato-splenomegaly. No mass. PELVIS: Normal external genitalia. BUS normal Urethra normal Bladder non tender, not enlarged Vagina no abnormal discharge. Mucosa moist and well rugated. no cystocele/rectocele Cervix appears normal, cytology with HPV was taken. No cervical motion tenderness Bimanual exam uterus not enlarged Exam limited due to body habitus. Anus appears normal. EXTREMITIES: No neurovascular compromise. No cyanosis, clubbing or edema. No edema, non-tender IMPRESSION/REPORT/PLAN 1. Annual exam in postmenopausal woman cervical cytology with HPV Follow up ovarian mass as previously discussed. Is awaiting CA125 results and referral cooridnator phone call. Phone number verified. Electronically Signed By: PAMELLA FAITH DEVELOPMENT CONSULTANT On: 07/14/2016 08:46 AM Source: [facility] POWERCHART Document Id: [id number] documented in this encounter Miscellaneous Notes Miscellaneous - Pamella Faith, R.N. - 07/21/2016 12:02 PM CDT Normal Results Letter July 21, 2016 ANGELES ALCANTARA [address] [place] [address] [place] [id number] Dear ANGELES ALCANTARA, Your Pap was normal and you do not carry the virus HPV (Human Papilloma Virus). Your next Pap and HPV test is due in 5 yrs. Please contact me if you have further questions or concerns. Thank you. Result Name Current Result Accession [facility] [id number] 07/14/2016 Final Diagnosis-[place] See Comment 07/14/2016 Signing Path-[place] See Comment 07/14/2016 Cytotech-[place] See Comment 07/14/2016 Spec Desc-[place] See Comment 07/14/2016 Sincerely, PAMELLA FAITH [address] [place] [address] Electronic Signature Electronically Signed By: PAMELLA FAITH DEVELOPMENT CONSULTANT On: July 21, 2016 This document has images extracted. Source: [facility] [employer] Document Id: [id number] Miscellaneous - Marina Escudero L.PSukhiNSukhi - 07/14/2016 8:51 AM CDT Home Improvement Advisor Documentation Home Improvement Advisor Documentation Entered On: 07/14/2016 8:52 CDT Performed On: 07/14/2016 8:51 CDT by MARINA ESCUDERO L.P.N. Home Improvement Advisor Documentation CD Home Improvement Advisor Present : Yes CD Home Improvement Advisor Name : MARINA Ross L.P.N. - 07/14/2016 8:51 CDT [facility] Document Id: [id number] CDT!4 Miscellaneous - Pamella Faith RJohn. - 07/14/2016 8:16 AM CDT Ambulatory Patient Summary [address] [place] [id number] Visit Information Name: ANGELES ALCANTARA [facility] Number: [id number] Current Date: 07/14/2016 08:16:25 Physicians Attending Provider: PAMELLA FAITH NP Primary Care Provider: PCP, VICTORIA ANGELES ALCANTARA has been given the following list of [...] the Following Medications: Medication list as of 07-14-16 08:16 Attention: If you have any medications at home that are not on this list, DO NOT take them until youcontact your provider for clarification. Give a copy of your medication list to your primary care provider. Update your medication list any time medications or doses are changed and carry your medication list at all times in case of emergency. Electronically Signed By: PAMELLA FAITH NP Signed On:14-JUL-2016 08:16:22 Your Allergies & Intolerances Substance Reaction Symptoms Category Comments amoxicillin Drug NSAIDs Drug Your Problem List Problem Status Onset Comments Screening Mammogram Breast Ca Active Screening Cancer Colon Active Your Upcoming Appointments Date Time Location Provider 07/22/2016 14:00 [facility] Izzy Sherman MD, Jeovanny Wood Attention: Contact your local Clinic if further appointment detail needed. Consider Using Patient Online Services Patient Online [...] if you dont have one. Go to [email or web address] and click on Create Your Account. Then, follow the directions to complete the online form. Youll be asked for your [facility] number which you can find at the top of this document. Your Goals/Additional instructions: Source: [facility] POWERCHART Document Id: [id number] Miscellaneous - Pamella Faith, R.N. - 07/14/2016 8:16 AM CDT Ambulatory Discharge Medication List [address] [id number] Visit Information Name: ANGELES ALCANTARA [facility] Number: [id number] Current Date: 07/14/2016 08:16:25 Attending Provider: PAMELLA FAITH DEVELOPMENT CONSULTANT Primary Care Provider: PCP, ANGELES MAYER has been given the following list of [...] the Following Medications: Medication list as of 07-14-16 08:16 Attention: If you have any medications at home that are not on this list, DO NOT take them until youcontact your provider for clarification. Give a copy of your medication list to your primary care provider. Update your medication list any time medications or doses are changed and carry your medication list at all times in case of emergency. Electronically Signed By: PAMELLA FAITH DEVELOPMENT CONSULTANT Signed On:14-JUL-2016 08:16:22 Additional Information: [facility] Document Id: [id number] Miscellaneous - Jodee Silva L.P.N. - 07/14/2016 8:07 AM CDT Ambulatory Vitals Height Weight Ambulatory Vitals Height Weight Entered On: 07/14/2016 8:09 CDT Performed On: 07/14/2016 8:07 CDT by JODEE SILVA LPN Vitals/Ht/Wt Systolic Blood Pressure : 165 mmHg (>HHI) Diastolic Blood Pressure : 80 mmHg NIBP Mean : 108 mmHg BP Location : Left upper extremity Blood Pressure Cuff Size : Regular Height : 160 cm(Converted to: 5 ft 3 inch(es), 63 inch(es)) JODEE SILVA LPN - 07/14/2016 8:07 CDT Source: [facility] [employer] Document Id: [id number] CDT!8 Miscellaneous - Jodee Silva L.P.N. - 07/14/2016 8:03 AM CDT Adult Survival Equipment Repairer Intake/History Adult Survival Equipment Repairer Intake/History Entered On: 07/14/2016 8:05 CDT Performed On: 07/14/2016 8:03 CDT by JODEE SILVA LPN Intake Chief Complaint : CPX and pap LMP Date : Postmenopausal Temperature Core : 36.9 DegC(Converted to: 98.4 DegF) Peripheral Pulse Rate : 63 /min Respiratory Rate : 16 /min Heart Rhythm : Regular Systolic Blood Pressure : 156 mmHg (HI) Diastolic Blood Pressure : 87 mmHg NIBP Mean : 110 mmHg BP Location : Left upper extremity Blood Pressure Cuff Size : Regular Height : 160 cm(Converted to: 5 ft 3 inch(es), 63 inch(es)) JODEE SILVA LPN - 07/14/2016 8:03 CDT General Info Information Given By : Patient Languages : Bahamian Is Patient Female and 13-50 no hysterectomy : No JODEE SILVA LPN - 07/14/2016 8:03 CDT Subjective Pain Symptoms : No JODEE SILVA LPN - 07/14/2016 8:03 CDT Dependent Habits Exposure to Tobacco Smoke : Care provider denies smoking in home Smoking Status : Never smoker Tobacco 2A : No Tobacco Use/Currently Using : No Tobacco Use/Last 30 Days : No Tobacco Use/Last 12 months : No JODEE SILVA LPN - 07/14/2016 8:03 CDT Caffeine Use Grid Caffeine Use : None JODEE SILVA LPN - 07/14/2016 8:03 CDT Recreational Drug Use Grid Drug Use : None JODEE SILVA LPN - 07/14/2016 8:03 CDT Source: [facility] POWERCHART Document Id: [id number] CDT!33 documented in this encounter Plan of Treatment Not on filedocumented as of this encounter Procedures Procedure Name Priority Date/Time Associated Diagnosis Comme nts HXPHYS INTERP OF Routine 07/14/2016 8:46 AM Resul ts for this THIN PREP, PAP CDT procedure are in the results section. THINPREP SCREEN HPV Routine 07/14/2016 8:46 AM Re sults for this REFLEX CDT procedure are i n the results section. documented in this encounter Results HXPHYS INTERP OF THIN PREP, PAP (07/14/2016 8:46 AM CDT) [facility] [employer] Method Time Signature Interpretation Performed POWERCHART Comment: Test Performed by: [place] [address] Hospital Scientist: Jeovanny Snyder II, M.D., Ph.D. Specimen Anatomical Collection Method Collection Time Receive d Time (Source) Location / / Volume Laterality Cervix/Endocervi 07/14/2016 8:46 AM 07/15 7:55 x CDT AM CDT Historical Provider LAB HISTORICAL ORDERS Performing Organization Address City/State/ZIP Code Phon e Number POWERCHART Pathology ThinPrep Screen HPV Reflex (07/14/2016 8:46 AM CDT) [facility] [employer] Method Time Signature HXAccession [id number] POWERCHART [facility] HXFinal See Comment POWERCHART [facility] Comment: A. ??ThinPrep Pap Test Screen (Cervical/ Endocervical HPV >= 30 years old): Satisfactory for evaluation. Negative for intraepithelial lesion or m alignancy. Reactive/Reparative squamous cells prese nt. High Risk HPV testing results are NEGATI VE. See specific genotype results below. HPV with Genotyping, PCR, ThinPrep: HPV High Risk Type 16, PCR: ??NEGATIVE HPV High Risk Type 18, PCR: ??NEGATIVE HPV other High Risk types, PCR: ??NEGATI VE Other High Risk HPV types include: ??31, 33, 35, 39, 45, 51, 52, 56, 58, 59, 66, and 68. [facility] See Comment POWERCHART Comment: RESULT: Michaelle Shea, [facility] HXSIGNING PATH See Comment POWERCHART Comment: RESULT: 07/20/2016 16:25 Interpreted by: Agnes Carreon M.D. Report electronically signed by Agnes Carreon M.D. Transcribed by: [email or web address] ??07/20/2016 12:10 :01 Specimen (Source) Anatomical Collection Method Collection Time Re ceived Time Location / / Volume Laterality Cervix/Endocervix 07/14/2016 8:46 AM CDT Pamella Faith APRN, C.N.P. LAB PAP PATHDX ORDERABLES Performing Organization Address City/State/ZIP Code Phon e Number POWERCHART documented in this encounter Visit Diagnoses Not on filedocumented in this encounter
[2022-07-27 13:48] LABS: Albumin* 4.5 g/dL (3.3-5.0); Chloride* 100 mmol/L (96-114); Potassium* 3.8 mmol/L (3.6-5.1); Sodium* 140 mmol/L (135-149)
[2022-07-27 13:50] LABS: Cholesterol* 139 mg/dL (90-199)
[2022-07-27 13:51] LABS: Alanine Aminotransferase* 21 U/L (4-35); Alkaline Phosphatase* 78 U/L (40-150); Aspartate Amino Transferase* 23 U/L (12-35); Bilirubin Total* 0.5 mg/dL (0.1-1.5); Blood Urea Nitrogen* 31 mg/dL (7-30); Carbon Dioxide* 28 mmol/L (20-32); Creatinine* 1.7 mg/dL (0.5-1.5); Estimated Glomerular Filt Rate 34 ml/min; Glucose* 158 mg/dL (60-115); Total Protein* 7.1 g/dL (6.0-8.3); Triglycerides* 178 mg/dL (40-149)
[2022-07-27 13:52] LABS: Calcium* 9.7 mg/dL (8.4-10.6); HDL Cholesterol* 37 mg/dL (>=50); LDL Cholesterol Calculated 66 mg/dL (<100)
[2022-07-27 14:06] LABS: Creatinine Urine 75.7 mg/dL
[2022-07-27 14:11] LABS: Microalbumin Creatinine Ratio 10 mg/g (0-30); Microalbumin Urine 1 mg/dL
== END 2022-07-27 09:09 | disposition home or self-care (01) ==
PROVIDERS: PCP Nurse Practitioner Family; Visit Provider Nurse Practitioner Family
DX: E11.9 Type 2 diabetes mellitus without complications (principal); E78.5 Hyperlipidemia, unspecified; I10 Essential (primary) hypertension; E66.9 Obesity, unspecified
CPT/HCPCS: 36415; 80053; 80061; 82043; 82570; 84443

== ENCOUNTER 2022-09-14 09:34 | Outpatient (CLI) | payer OTHER, SELFPAY ==
--- OUTSIDE RECORDS SUMMARY | 2022-09-14 10:05 | XMS_ITS | Encounter Summary ---
:1960 Author Organization [facility] Address [address] [place] [address] Care Team Providers Name Role Phone Libby Cheema MD Primary Care Provider Encounter Details Date Type Department Care Team Description 12/17/2021 Orders Only [place] Libby Cheema MD [address] [place], [place] [address] [place], [place] [phone] (Wo rk) Social History Tobacco Use Types Packs/Day Years Used Date Smoking Tobacco: Never Smokeless Tobacco: Never Alcohol Use Standard Drinks/Week Comments Not Asked [...] drinks on one occasion? 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
--- OUTSIDE RECORDS SUMMARY | 2022-09-14 10:05 | XMS_ITS | Clinical Summary ---
:1960 Author Organization [facility] Address [address] [place] [address] Care Team Providers Name Role Phone Libby [...] Device for 0 02/12/2015 Active Insulin (INPEN [id number]) device insulin glargine Inject 38 Units 40 [...] complication, with long-term current use of insulin ([facility]) atorvastatin (LIPITOR) 10 MG Take 1 tablet (10 mg 90 tablet 3 11/25/2019 Active tabletIndications: total) by mouth 1 Hyperlipoproteinemia (one) time each day glipiZIDE (GLUCOTROL) 10 MG Take 1 tablet (10 mg 180 tablet 3 11/25/2019 Active tabletIndications: Type 2 total) by mouth twice diabetes mellitus without a day complication, with long-term current use of insulin ([facility]) metoprolol succinate XL Take 1 tablet (25 [...] complication, with long-term current use of insulin ([facility]) chlorthalidone (HYGROTON) 50 Take 1 tablet (50 [...] complication, with long-term current use of insulin ([facility]) Insulin Pen Needle (Pen Use to check blood 200 each 3 020 Active Novi) 31G X 5 MM sugar twice daily. 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 Filed Vital Signs Vital Sign Reading [...] 161 cm (5' 3.39) 11/23/2019 8:41 AM CARBON SEQUESTRATION PLANT OPERATOR Body Mass Index 37.13 11/23/2019 8:41 AM CARBON SEQUESTRATION PLANT OPERATOR Plan of Treatment Health Maintenance Due Date Last Done Comments CT Colonography 1960 FIT-DNA 1960 Sigmoidoscopy 1960 iFOBT 1960 Pneumococcal Vaccine: 10/06/2021 02/08/2018, 10/06/2016 Pediatrics (0 to 5 Years) and At-Risk Patients (6 to 64 Years) (3 - PPSV23 if available, else PCV20) Mammogram 05/27/2022 05/27/2021, 02/09/2019, 02/09/2019 DTaP,Tdap,and Td Vaccines 08/12/2025 08/12/2015, 07/14/2005 , (2 - Td or Tdap) 07/14/2005 Colonoscopy 07/22/2026 07/22/2016 Colorectal Cancer Screening 07/22/2026 Pap Smear Discontinued 03/23/2014 Zoster Vaccines Completed 11/12/2020, 06/20/2020 COVID-19 Vaccine Completed 07/04/2022, 08/05/2021, 01/09/2021, Additional history exists HPV Vaccines Aged Out No longer fang caceres based on patient 's age to complete this topic Insurance Payer Benefit Plan / Subscriber ID Effective Phone Address T [facility] [id number] 2017-Prese [address] [place] [address] Care Teams Yacht Master Relationship Specialty Start Date End Date Libby Cheema MD PCP - General 06/09/[address] [place] [address]
--- OUTSIDE RECORDS SUMMARY | 2022-09-14 10:05 | XMS_ITS | Encounter Summary ---
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
--- OUTSIDE RECORDS SUMMARY | 2022-09-14 10:05 | XMS_ITS | Clinical Summary ---
:1960 Author Organization [employer] [facility] [place] [address] Care Team Providers Name Role Phone Pcp, [...] 1972 Depression screening for age 12+ 1973 HIV for age 15-65 1976 BMI (ht and wt on same day) [...] Phone Addre ss Type Group [employer] [id number] 2017-Present [address] [place] [address] Care Teams Maintenance Service Technician Relationship Specialty Start Date End Date Pcp, No PCP - General 03/29/20 .
--- OUTSIDE RECORDS SUMMARY | 2022-09-14 10:06 | XMS_ITS | Encounter Summary ---
:1960 Author Organization [facility] Address [address] [place] [address] Care Team Providers Name Role Phone Yesenia Sood APRN, COMBINATION WELDER Primary Care Provider [phone] Reason for Visit Reason Comments Follow-up MRI results Encounter Details Date Type Department Care Team Description 03/22/2020 Office Visit [place] Libby Cheema Osteoarthritis of spine [address] MD Ozzie with radiculopathy, [place], [place] [address] lumbar lion on (Primary [address] [place] Dx) [phone] [place] [address] Social History Tobacco Use Types Packs/Day Years [...] at Date Recorded Female 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 She started to take some ibuprofen [id number] and she called us and we ordered [...] Primary documented in this encounter Care Teams Medical Advisor Relationship Specialty Start Date End Date Yesenia Sood, FARM FORESTRY AND GARDEN WORKERS, COMBINATION WELDER PCP - General 05/17/18 06/17/[address] [place] [address] [place] [facility] [place] [address] documented as of this encounter
--- OUTSIDE RECORDS SUMMARY | 2022-09-14 10:06 | XMS_ITS | Encounter Summary ---
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
--- OUTSIDE RECORDS SUMMARY | 2022-09-14 10:06 | XMS_ITS | Encounter Summary ---
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
--- OUTSIDE RECORDS SUMMARY | 2022-09-14 10:06 | XMS_ITS | Encounter Summary ---
:1960 Author Organization [facility] Address [address] [place] [address] Care Team Providers Name Role Phone Unavailable Primary Care Provider Unavailable Reason for Visit Reason Onset Date Comments Med Refill 08/07/2020 Encounter Details Date Type Department Care Team Description 08/07/2020 Refill [place] Libby Cheema, Type 2 diabetes mellitus [address] [place] without complication, [place], [place] [address] [facility] 20 [place] with long-term current [phone] [place], [place] use of insu lucrecia ([facility]) [address] Social History Tobacco Use Types Packs/Day Years [...] at Date Recorded Female 2020 3:13 PM DONATIONS ATTENDANT documented as of this encounter Miscellaneous Notes [...] Disp Refills ??? Insulin Pen Needle (Pen [place]) 31G X 5 MM misc 200 each [...]
--- OUTSIDE RECORDS SUMMARY | 2022-09-14 10:06 | XMS_ITS | Encounter Summary ---
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 documented as of this encounter Last Filed Vital Signs Vital Sign Reading Time Taken Comments Blood Pressure 170/90 09/18/2019 10:17 AM WOOD FENCE INSTALLER Pulse 70 09/18/2019 10:17 AM WOOD FENCE INSTALLER Temperature - - Respiratory Rate 18 09/18/2019 10:17 AM WOOD FENCE INSTALLER Oxygen Saturation 97% 09/18/2019 10:17 AM WOOD FENCE INSTALLER Inhaled Oxygen Concentration - - Weight 99.6 kg (219 lb 9.3 oz) 09/18/2019 10:17 AM WOOD FENCE INSTALLER Height - - Body Mass Index 37.95 07/07/2019 7:22 AM CDT documented in this encounter Progress Notes Deanne Dejesus APRN, CNP - 09/18/2019 10:30 AM CST Estab Patient Visit Subjective Patient ID: Angeles Morales is a 58 y.o. female. Patient presented to [facility] on 07/07/2019 with problematic, [...] and updated as appropriate: Review of Systems [place] Sleepiness Scale 02/01 Objective Physical Exam Visit [...] this visit: Snoring Recommendation: 1. Follow-up with [facility] to discuss the results of this PSG [...] any assistance in referrals to those options. FENCE INSTALLER documented in this encounter Plan of Treatment Not on filedocumented as of this encounter Visit Diagnoses Diagnosis Snoring - Primary Other dyspnea and respiratory abnormalit y documented in this encounter Care Teams Clinical Social Worker Relationship Specialty Start Date End Date Yesenia Sood APRN, OIL WINTERIZER PCP - General 05/17/18 06/17/[address] [place] [address] [place] [address] documented as of this encounter
--- OUTSIDE RECORDS SUMMARY | 2022-09-14 10:06 | XMS_ITS | Encounter Summary ---
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
--- OUTSIDE RECORDS SUMMARY | 2022-09-14 10:06 | XMS_ITS | Encounter Summary ---
:[address] 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 Please call Elizabeth at [phone] as necessary. documented in this encounter Plan of Treatment Not on filedocumented as of this encounter Visit Diagnoses Diagnosis Type 2 diabetes mellitus without complic ation, with long-term current use of insulin (HCC) - Primary documented in this encounter Care Teams Senior Firewall Engineer Relationship Specialty Start Date End Date Yesenia Sood, LINOLEUM MECHANIC, MANAGER INSTALLATION PCP - General 05/17/18 06/17/[address] [place] [address] [place] [address] documented as of this encounter
--- OUTSIDE RECORDS SUMMARY | 2022-09-14 10:06 | XMS_ITS | Encounter Summary ---
:1960 Author Organization [facility] Address [address] [place] [address] Care Team Providers Name Role Phone Yesenia Sood APRN, TRAINING MGR Primary Care Provider [phone] Reason for Visit Reason Comments Eye Problem right eye blurry strated tod ay. 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 CONTROL ROOM SUPERVISOR documented as of this encounter Last Filed Vital Signs Vital Sign Reading Time Taken Comments Blood Pressure 140/80 09/06/2019 2:16 PM CONTROL ROOM SUPERVISOR Pulse 60 09/06/2019 2:16 PM CONTROL ROOM SUPERVISOR Temperature 36.1 ??C (96.9 ??F) 09/06/2019 2:16 PM CONTROL ROOM SUPERVISOR Respiratory Rate 16 09/06/2019 2:16 PM CONTROL ROOM SUPERVISOR Oxygen Saturation - - Inhaled Oxygen Concentration - - Weight 99.7 kg (219 lb 14.4 oz) 09/06/2019 2:16 PM CONTROL ROOM SUPERVISOR Height - - Body Mass Index 38.01 [...] wrote aprescription for Patanol that she could picked edge sewing machine operator if she would like to use this would be much more potent for allergy symptoms. She can use cool compresses and can take it easy and wash her hands before touching her eyes. Certainly if she gets worse she can picked edge sewing machine operator the Patanol keep that on hand and [...] response and the plan was as stated. ROL ROOM SUPERVISOR documented in this encounter Plan of Treatment Not on filedocumented as of this encounter Visit Diagnoses Diagnosis Red eye - Primary Redness or discharge of eye documented in this encounter Care Teams Violin Repairer Relationship Specialty Start Date End Date Yesenia Sood, CVT TECH, TRAINING MGR PCP - General 05/17/18 06/17/[address] [place] [address] [place] [address] documented as of this encounter
--- OUTSIDE RECORDS SUMMARY | 2022-09-14 10:06 | XMS_ITS | Encounter Summary ---
:1960 Author Organization [facility] Address [address] [place] [address] Care Team Providers Name Role Phone Yesenia Sood APRN, CASHIER AND WAITER/WAITRESS Primary Care Provider [phone] Reason for Visit Reason Comments Consult abnormal oximetry Snoring Consultation (Routine) - Closed Specialty Diagnoses / Procedures Referred By Contact Refer red To Contact Sleep Medicine Diagnoses Essential (primary) hypertension Yesenia Sood APRN, CASHIER AND WAITER/WAITRESS [address] [place] [address] Referral ID Status Reason Start Date Expiration Date Visits V isits Requested Authorized [id number] Closed Specialty 03/15/2019 03/15/2020 1 1 Services Required Encounter Details Date Type Department Care Team Description 07/07/2019 Office Visit [facility] 52 Sleep Medicin e Pepe Rajput, Canceled (Provider: No [address] [address] [address] Elmer Morin MD Letter Needed) [place] [address] Social History Tobacco Use Types Packs/Day Years [...] at Date Recorded Female 2020 3:13 PM ORGAN RECOVERY COORDINATOR documented as of this encounter Last Filed [...] Name Type Priority Associated Diagnoses Order S [facility] Ambulatory referral Outpatient Referral Routine Essential (pérez betsey) Ordered: to Sleep Medicine hypertension 03/15/2019 documented as of this encounter Visit Diagnoses Not on filedocumented in this encounter Care Teams Asbestos Brake Lining Finisher Helper Relationship Specialty Start Date End Date Yesenia Sood APRN, CASHIER AND WAITER/WAITRESS PCP - General 05/17/18 06/17/[address] [place] [address] documented as of this encounter
--- OUTSIDE RECORDS SUMMARY | 2022-09-14 10:06 | XMS_ITS | Encounter Summary ---
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
--- OUTSIDE RECORDS SUMMARY | 2022-09-14 10:06 | XMS_ITS | Encounter Summary ---
:1960 Author Organization [facility] Address [address] [place] [address] Care Team Providers Name Role Phone Yesenia Sood HANDLE FINISHER, DIAGNOSTIC RADIOLOGIST Primary Care Provider [phone] Reason for Visit Reason Onset Date Comments Med Refill 06/21/2019 Encounter Details Date Type Department Care Team Description 06/21/2019 Refill [place] Yesenia Sood, Type 2 diabetes [address] HANDLE FINISHER, DIAGNOSTIC RADIOLOGIST mellitus without [place], [place] [address] complication, with [phone] [place], [place] [address] long-term current use of insul in (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
--- OUTSIDE RECORDS SUMMARY | 2022-09-14 10:06 | XMS_ITS | Encounter Summary ---
:1960 Author Organization [facility] Address [address] [place] [address] Care Team Providers Name Role Phone Yesenia Sood ARTIST WOODBLOCK, CLASSER Primary Care Provider [phone] Reason for Visit Reason Onset Date Comments test strips 01/18/2020 Encounter Details Date Type Department Care Team Description 01/18/2020 Telephone [place] Yesenia Sood, test strips [address] ARTIST WOODBLOCK, MINESH [place], [place] [address] [address] [facility] [address] [phone] [place], [place] [address] Social History Tobacco Use [...] at Date Recorded Female 2020 3:13 PM NEUROLOGIST documented as of this encounter Miscellaneous Notes Telephone Encounter - Francisca Mejia - 01/18/2020 4:26 PM CDT Rx faxed to [facility] pharmacy as requested. Telephone Encounter - Ce Obando LPN - 01/18/2020 4:20 PM CDT Please fax to [facility] Telephone Encounter - Ce Obando LPN - 01/18/2020 4:00 PM CDT Test strips pending To [place] [facility] documented in this encounter Plan of Treatment Not on filedocumented as of this encounter Visit Diagnoses Diagnosis Type 2 diabetes mellitus without complic ation, with long-term current use of insulin (HCC) - Primary documented in this encounter Care Teams Club Car Attendant Relationship Specialty Start Date End Date Yesenia Sood, ARTIST WOODBLOCK, CLASSER PCP - General 05/17/18 06/17/20 100 [facility] [place] [address] documented as of this encounter
--- OUTSIDE RECORDS SUMMARY | 2022-09-14 10:06 | XMS_ITS | Encounter Summary ---
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 Injection Device for Insulin (INPEN [id number]) device, , Disp: , Rfl: ??? insulin [...] this plan of care. Yesenia Sood APRN, SCIENTIFIC ASSOCIATE CHART REVIEWED DR. NEIL documented in this [...] CDT) athologist Signature Rapid NEGATIVE Negative 06/27/2019 [facility] Influenza A 1:34 PM CDT [place] Rapid NEGATIVE Negative 06/27/2019 [facility] Influenza B 1:34 PM CDT [place] Comment: A negative test is presumptive and does not exclude influenza virus infection. Specimen Anatomical Collection Method Collection Time Receive d Time (Source) Location / / Volume Laterality Swab 06/27/2019 11:30 06/27/2019 (Nasopharynx) AM CDT 11:33 AM CDT Yesenia Sood APRN, MINESH LAB BODY FLUIDS AND STOOL S ORDERABLES Performing Organization Address City/State/ZIP Code Phon e Number [facility] GONZALO ALVAREZ [address] [place] [address] documented in this encounter Visit Diagnoses Diagnosis Cough - Primary Wheezing Fever, unspecified fever cause documented in this encounter Care Teams Employment Law Attorney Relationship Specialty Start Date End Date Yesenia Sood APRN, SCIENTIFIC ASSOCIATE PCP - General 05/17/18 06/17/20 100 [facility] [place] [address] documented as of this encounter
--- OUTSIDE RECORDS SUMMARY | 2022-09-14 10:06 | XMS_ITS | Encounter Summary ---
:1960 Author Organization [facility] Address [address] [place] [address] Care Team Providers Name Role Phone Yesenia Sood GEOLOGY FACULTY MEMBER, COMPUTER CONSOLE OPERATOR Primary Care Provider [phone] Reason for Visit Reason Onset Date Comments Med Refill 07/14/2019 Encounter Details Date Type Department Care Team Description 07/14/2019 Refill [place] Yesenia Sood, Type 2 diabetes [address] GEOLOGY FACULTY MEMBER, COMPUTER CONSOLE OPERATOR mellitus without [place], [place] [address] [address] complication, with [phone] [place], [place] [address] long-term current use of insul in ([facility]) Social History Tobacco Use Types Packs/Day Years [...] at Date Recorded 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
--- OUTSIDE RECORDS SUMMARY | 2022-09-14 10:06 | XMS_ITS | Encounter Summary ---
:1960 Author Organization [facility] Address [address] [place] [address] Care Team Providers Name Role Phone Yesenia Sood APRN, USABILITY ARCHITECT Primary Care Provider [phone] Reason for Visit Reason Comments Consult abnormal oximetry Snoring Consultation (Routine) - Closed Specialty Diagnoses / Procedures Referred By Contact Refer red To Contact Sleep Medicine Diagnoses Essential (primary) hypertension Yesenia Sood APRN, USABILITY ARCHITECT [address] [place] [address] Referral ID Status Reason Start Date Expiration Date Visits V isits Requested Authorized [id number] Closed Specialty 03/15/2019 03/15/2020 1 1 Services Required Encounter Details Date Type Department Care Team Description 07/07/2019 Office Visit [facility] 52 Sleep Medicin e Elmer Guerra MD Snoring (Primary Dx) [facility] [address] Deanne Dejesus APRN, [place] [address] Social History Tobacco Use Types Packs/Day Years [...] at Date Recorded 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 female. Chief Complaint Patient presents with ??? Consult abnormal oximetry ??? Snoring HPI Angeles Morales is a 58 y.o. female who presents [facility] upon [...] sleep apnea. 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 She is , lives with her [...] day Alcohol Exposure: 1-2 drinks per month [place] Sleepiness Scale: 05/03 STOP BAN BMI: 36.88 [...] Name Type Priority Associated Diagnoses Order S [facility] Ambulatory referral Outpatient Referral Routine Essential (pérez betsey) Ordered: to Sleep Medicine hypertension 03/15/2019 documented as of this encounter Visit Diagnoses Diagnosis Snoring - Primary Other dyspnea and respiratory abnormalit y documented in this encounter Care Teams Detailer Relationship Specialty Start Date End Date Yesenia Sood APRN, USABILITY ARCHITECT PCP - General 05/17/18 06/17/20 [address] [facility] [place] [address] documented as of this encounter
--- OUTSIDE RECORDS SUMMARY | 2022-09-14 10:06 | XMS_ITS | Encounter Summary ---
:1960 Author Organization [facility] Address [address] [place] [address] Care Team Providers Name Role Phone Libby Cheema MD Primary Care Provider Encounter Details Date Type Department Care Team Description 07/31/2021 Orders Only [facility] Family [facility] Libby Cheema MD [address] [facility] [address] [place] [address] [place], [place] [phone] [id number] (Wo rk) Social History Tobacco Use Types [...] at Date Recorded Female 2020 3:13 PM COMMUNITY RELATIONS COORDINATOR documented as of this encounter Plan of Treatment Not on filedocumented as of this encounter Visit Diagnoses Not on filedocumented in this encounter Care Teams Patrol Man Relationship Specialty Start Date End Date Libby Cheema MD PCP - General 06/09/[address] [place] [address] documented as of this encounter
--- OUTSIDE RECORDS SUMMARY | 2022-09-14 10:06 | XMS_ITS | Encounter Summary ---
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 Yesenia Sood Sleep Medicine Provider: Deanne [...] Total Sleep Time (Full night): 9 Hours Evans Sleepiness Score: 7 STOP BANG Scale: 6 Muñoz Class: 4 Neck Circumference: 16.75 Inches Body Mass Index: 36.88 Study Performed: Baseline PSG A formal In-laboratory polysomnographic study was performed in accordance with the standards and guidelines set forth by the [place] [employer] using the international [...] Light, moderate, and loud For quality assurance auditor purposes it should be noted, Stage REM [...] moderate - loud. Recommendation: 1. Follow-up with [facility] to discuss the results of this PSG [...] Elmer Fan MD, DABSM, FAASM Diplomate - [place] [employer] Diplomate - [place] [employer]-Sleep Medicine Fellow- [place] [employer] Almond Blancher Operator - [facility] OR FRONT END ENGINEER documented in this encounter Plan of Treatment Not on filedocumented as of this encounter Visit Diagnoses Diagnosis Snoring - Primary Other dyspnea and respiratory abnormalit y documented in this encounter Care Teams Chartered Accountant Relationship Specialty Start Date End Date Yesenia Sood APRN, GENETIC SUPERVISOR PCP - General 05/17/18 06/17/[address] [place] [address] documented as of this encounter
--- OUTSIDE RECORDS SUMMARY | 2022-09-14 10:06 | XMS_ITS | Encounter Summary ---
:1960 Author Organization [facility] Address [address] [place] [address] Care Team Providers Name Role Phone Yesenia Sood APRN, DENTIST/OWNER Primary Care Provider [phone] Reason for Referral Consultation (Routine) - Closed Specialty Diagnoses / Procedures Referred By Contact Refer red To Contact Sleep Medicine Diagnoses Snoring Deanne Dejesus APRN, Procedures Polysomnography DENTIST/OWNER [address] [address] Referral ID Status Reason Start Date Expiration Date Visits V isits Requested Authorized [id number] Closed Specialty 07/31/2019 01/30/2020 1 1 Services Required Encounter Details Date Type Department Care Team Description 07/31/2019 Orders Only PENDING SALE TO [facility] 52 Sleep Medicin Deanne Ayala, Snoring (Primary Dx) [address] [facility] [address] [place] [address] Social History Tobacco Use Types Packs/Day Years [...] at Date Recorded 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
--- OUTSIDE RECORDS SUMMARY | 2022-09-14 10:06 | XMS_ITS | Encounter Summary ---
:1960 Author Organization [facility] Address [address] [place] [address] Care Team Providers Name Role Phone Yesenia Sood NUCLEAR EQUIPMENT SALES ENGINEER, STILL OPERATOR Primary Care Provider [phone] Reason for Visit Reason Onset Date Comments Lantus Rx 07/14/2019 Encounter Details Date Type Department Care Team Description 07/14/2019 Telephone [place] Yesenia Sood, [facility] [address] NUCLEAR EQUIPMENT SALES ENGINEER, STILL OPERATOR [place], [place] [address] [facility] [phone] [place], [place] [address] Social History Tobacco Use [...] Date Recorded 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 RN approved dispensing pens per Yesenia Sood. Telephone Encounter - Francisca Mejia - 07/14/2019 11:16 AM CDT [facility] called with a question on her Lantus Rx. This called for the viles but the Pt has had the pens in the past. Please call the [facility] prescription call center at [phone] to advise. documented in this encounter Plan of Treatment Not on filedocumented as of this encounter Visit Diagnoses Not on filedocumented in this encounter Care Teams Impregnating Tank Operator Relationship Specialty Start Date End Date Yesenia Sood, NUCLEAR EQUIPMENT SALES ENGINEER, STILL OPERATOR PCP - General 05/17/18 06/17/20 [address] [facility] [place] [address] documented as of this encounter
--- OUTSIDE RECORDS SUMMARY | 2022-09-14 10:06 | XMS_ITS | Encounter Summary ---
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 Reviewed screening questionnaire with patient prior to administration. VIS given. documented in this encounter Plan of Treatment Not on filedocumented as of this encounter Visit Diagnoses Not on filedocumented in this encounter Care Teams Prize Fighter Relationship Specialty Start Date End Date Yesenia Sood APRN, ADMINISTRATIVE PROCESSOR PCP - General 05/17/18 06/17/20 [address] [place] [address] documented as of this encounter
--- OUTSIDE RECORDS SUMMARY | 2022-09-14 10:06 | XMS_ITS | Encounter Summary ---
:1960 Author Organization [facility] Address [address] [place] [address] Care Team Providers Name Role Phone Yesenia Sood APRN, SAND TECHNOLOGIST Primary Care Provider [phone] Reason for Referral Consultation (Routine) - Closed Specialty Diagnoses / Procedures Referred By Contact Refer red To Contact Diagnoses Chronic bilateral low back pain with left-sided sciatica iLbby Cheema MD [facility] - [address] [place], [place] [address] [facility] [address] [place] [address] Fax: Referral ID Status Reason Start Date Expiration Date Visits Requ ested Visits Authorized [id number] Closed 03/11/2020 03/11/2021 1 1 Reason for Visit Reason Onset Date Comments MRI 03/07/2020 Encounter Details Date Type Department Care Team Description 03/07/2020 Telephone Libby Calderon MD MRI [address] [place], [place] [address] [place], [place] [phone] (Wo rk) Social History Tobacco Use Types [...] at Date Recorded 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 Telephone Encounter - Lili Lucero RN - 03/11/2020 8:17 AM CDT Patient informed, please fax to [facility] in [place]. Telephone Encounter - Libby Cheema MD - 03/11/2020 7:57 AM CDT I have placed an order for Angeles to get a Lumbar MRI scan open sided via [facility]. Please copy and fax tothem and then call Angeles to let her know that she should be getting a phone call from [facility] in the next several days or so and if she doesn't then she should call us back. When [facility] contacts her she should let them know [...] prefers to have an open sided machine. [facility] in [facility] has an open MRI that the patient is okay with going to. Fax #: [phone] referral. Telephone Encounter - Shila Mitchell - 03/07/2020 12:54 PM CDT Patient would like to proceed with MRI as Alberto Sood had recommended prior to Covid 19. She would like an open sided one. You can reach her at [phone]. documented in this encounter Plan of Treatment Scheduled Referrals Name Type Priority Associated Order Schedule Diagnoses Ambulatory External Outpatient Referral Routine Chronic bilate ral Ordered: Referral low back pain with 0 left-sided sciatica documented as of this encounter Visit Diagnoses Diagnosis Chronic bilateral low back pain with lef t-sided sciatica - Primary documented in this encounter Care Teams Tuber Machine Cutter Relationship Specialty Start Date End Date Yesenia Sood, DATACAP DEVELOPER, SAND TECHNOLOGIST PCP - General 05/17/18 06/17/20 [address] [place] [address] documented as of this encounter
--- OUTSIDE RECORDS SUMMARY | 2022-09-14 10:06 | XMS_ITS | Encounter Summary ---
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
--- OUTSIDE RECORDS SUMMARY | 2022-09-14 10:06 | XMS_ITS | Encounter Summary ---
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
--- OUTSIDE RECORDS SUMMARY | 2022-09-14 10:06 | XMS_ITS | Encounter Summary ---
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 CRAFTSMAN Telephone Encounter - Yesenia Sood APRN, [place] - 11/28/2019 11:45 AM WOOD CRAFTSMAN Absolutely of course please let him know that we approve a 3-month supply. CRAFTSMAN Telephone Encounter - Lili Lucero RN - 11/28/2019 11:10 AM CST Please advise. CRAFTSMAN Telephone Encounter - Shila Mitchell - 11/28/2019 10:29 AM CST Elizabeth from [facility] is wondering if Alberto Sood would approve a 2 or 3 month supply of [place] the patient has a coupon and would save her money. Currently RX if for 1 month. Please call her at [phone]. CRAFTSMAN documented in this encounter Plan of Treatment Not on filedocumented as of this encounter Visit Diagnoses Not on filedocumented in this encounter Care Teams Lubrication Servicer Relationship Specialty Start Date End Date Yesenia Sood APRN, CONTACT LENS LATHE OPERATOR PCP - General 05/17/18 06/17/[address] [place] [address] [place] [address] documented as of this encounter
--- OUTSIDE RECORDS SUMMARY | 2022-09-14 10:06 | XMS_ITS | Encounter Summary ---
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 ICATIONS SUPPORT LEAD Telephone Encounter - Lili Lucero RN - 12/17/2021 4:44 PM CST Please send letter. ICATIONS SUPPORT LEAD Telephone Encounter - Francisca Mejia - 12/17/2021 3:37 PM CST Multiple attempts to reach patient for requested appt. Please send letter if necessary, ICATIONS SUPPORT LEAD Telephone Encounter - Francisca Mejia - 11/05/2021 3:38 PM CST Left message requesting to schedule an OV for diabetic review/labs and also asked if she has taken her cares elsewhere so we can update her chart. ICATIONS SUPPORT LEAD Telephone Encounter - Francisca Mejia - 08/22/2021 10:49 AM CST Left message regarding diabetic review with fasting labs, also asked if Pt is still coming here or if she has taken her cares elsewhere. ICATIONS SUPPORT LEAD Telephone Encounter - Shila Mitchell - 07/24/2021 2:28 PM CDT Left message. Telephone Encounter - Lili Lucero RN - 07/22/2021 9:46 AM CDT Patient for diabetic recheck with fasting labs. If she is seeing a provider at [facility] please change PCP. documented in this encounter Plan of Treatment Not on filedocumented as of this encounter Visit Diagnoses Not on filedocumented in this encounter Care Teams Ironworker Machine Operator Relationship Specialty Start Date End Date Libby Cheema MD PCP - General 06/09/[address] [place] [address] documented as of this encounter
--- OUTSIDE RECORDS SUMMARY | 2022-09-14 10:06 | XMS_ITS | Encounter Summary ---
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
--- OUTSIDE RECORDS SUMMARY | 2022-09-14 10:06 | XMS_ITS | Encounter Summary ---
:1960 Author Organization [facility] Address [address] [place] [address] Care Team Providers Name Role Phone Yesenia Sood APRN, VOLCANOLOGY PROFESSOR Primary Care Provider [phone] Reason for Visit Reason Comments Diabetes CHECK Encounter Details Date Type Department Care Team Description 11/23/2019 Office Visit Pelon Brewster Yesenia Sood Type 2 diabetes mellitus wit hout complication, with long-term current use of insulin (HCC) (Primary Dx); [address] M, MINESH HANSEN Essential hypertension; Pelon Brewster MD [address] Lumbar back pain with radiculopathy affe cting left lower extremity; [address] [place], [place] Hyperlipoproteinemia; [phone] Hypertension, unspecified type; [phone] Essential (prim yudy) hypertension; (Work) Insomnia, unspe [...] at Date Recorded 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 documented as of this encounter Last Filed Vital Signs Vital Sign Reading Time Taken Comments Blood Pressure 148/86 11/23/2019 8:41 AM DIRECTOR OF SALES Pulse 66 11/23/2019 8:41 AM DIRECTOR OF SALES Temperature 36.2 ??C (97.2 ??F) 11/23/2019 8:41 AM DIRECTOR OF SALES Respiratory Rate 18 11/23/2019 8:41 AM DIRECTOR OF SALES Oxygen Saturation 98% 11/23/2019 8:41 AM DIRECTOR OF SALES Inhaled Oxygen Concentration - - Weight 98.9 kg (218 lb 0.6 oz) 11/23/2019 8:41 AM DIRECTOR OF SALES Height 161 cm (5' 3.39) 11/23/2019 8:41 AM DIRECTOR OF SALES Body Mass Index 38.15 11/23/2019 8:41 AM DIRECTOR OF SALES documented in this encounter Patient Instructions Patient InstructionsChwhitney Sood APRN, CNP - 11/23/2019 8:40 AM DIRECTOR OF SALES Will call with the lab and xray results May increase your diuretic No other changes Lamisil cream to the feet and good hydration CTOR OF SALES documented in this encounter Progress Notes Yesenia [...] 3 ??? Injection Device for Insulin (INPEN [id number]) device, , Disp: , Rfl: ??? insulin [...] complication, with long-term current use of insulin ([facility]) (Primary) - Comprehensive metabolic panel; Future - [...] 1000 mg 3 times a day and child care lead teacher. The patient is aware we can consider a lumbar back MRI to evaluate her symptoms further, which she will discuss with her chiropractor. The patient should apply an pyac-bca-umdwfee antifungal cream and good hydration on the [...] renewed x one year. Yesenia Sood APRN, VOLCANOLOGY PROFESSOR CTOR OF SALES documented in this encounter Plan of Treatment Not on filedocumented as of this encounter Procedures Procedure Name Priority Date/Time Associated Diagnosis Comme nts XR LUMBAR SPINE Routine 11/23/2019 9:42 AM Lumbar back pain wi th Results for this 2-3 VIEWS DIRECTOR OF SALES radiculopathy procedure are in affecting left lower the res ults extremity section. documented in this encounter Results X-ray Lumbar Spine 2-3 Views (11/23/2019 9:42 AM DIRECTOR OF SALES) Anatomical Region Laterality Modality Spine, L-spine Radiographic Imaging Specimen (Source) Anatomical Collection Method Collection Time Re ceived Time Location / / Volume Laterality 11/23/2019 9:42 AM DIRECTOR OF SALES Impressions 11/23/2019 9:51 AM DIRECTOR OF SALES IMPRESSION: LUMBAR SPINE 2-3 VIEWS There is disc space narrowing with endpl ate spurring, which is mild to moderate at L2-3 and L5-S1 and mild at L 3-4 and L4-5. ??No fracture, malalignment or lytic or blastic lesion. Narrative 11/23/2019 9:51 AM DIRECTOR OF SALES INDICATION: lumbar back pain COMPARISON: None available Procedure Note Krysta Juares MD - 11/23/2019 INDICATION: lumbar back pain COMPARISON: None available IMPRESSION: LUMBAR SPINE 2-3 VIEWS There is disc space narrowing with endpl ate spurring, which is mild to moderate at L2-3 and L5-S1 and mild at L 3-4 and L4-5. No fracture, malalignment or lytic or blastic lesion. Yesenia Sood POST ACUTE CARE REGISTERED NURSE, VOLCANOLOGY PROFESSOR IMG XR PROCEDURES TSH (11/23/2019 9:25 AM DIRECTOR OF SALES) P athologist Signature TSH, Sensitive 2.98 0.46 - 11/24/2019 [facility] 4.68 mIU/L 2:06 PM DIRECTOR OF SALES [facility] Comment: The results from this [...] Volume Laterality Blood 11/23/2019 9:25 AM 0 DIRECTOR OF SALES 12:37 PM DIRECTOR OF SALES Yesenia Sood APRN, VOLCANOLOGY PROFESSOR LAB BLOOD ORDERABLES Performing Organization Address City/State/ZIP Code Phon e Number [facility] [address] [place] [address] (ABNORMAL) Lipid panel (11/23/2019 9:25 AM DIRECTOR OF SALES) athologist Signature Cholesterol 135 0 - 199 11/23/2019 [facility] mg/dL 12:49 PM [facility] Comment: Recommended by National Cholesterol Education Program (ATP III) -------- Cholesterol Ranges -------- <200 ? Desirable 200-239 ? Borderline high >=240 ? High Triglycerides 169 (A) 0 - 149 mg/dL 11/23/2019 12:49 PM [facility] Comment: -------- TRIG Ranges -------- <150 ?Normal 150-199 ? Borderline high 200-499 ? High >=500 ? Very high HDL 36 (A) 40 - 60 mg/dL 11/23/2019 12:49 PM [facility] Comment: -------- HDL Ranges -------- <40 ?Low 40-59 ?Normal >=60 ? Optimal LDL Calculated 65 0 - 99 mg/dL 11/23/2019 12:49 PM T [facility] Comment: -------- LDL Ranges -------- <100 ? Optimal 100-129 ?Near optimal/above op timal 130-159 ?Borderline high 160-189 ?High >=190 ?Very high Fasting? Yes 11/23/2019 9:31 AM DIRECTOR OF SALES [facility] Specimen Anatomical Collection Method Collection Time Receive d Time (Source) Location / / Volume Laterality Blood 11/23/2019 9:25 AM 0 DIRECTOR OF SALES 12:27 PM DIRECTOR OF SALES Yesenia Sood APRN, VOLCANOLOGY PROFESSOR LAB BLOOD ORDERABLES Performing Organization Address City/[facility]/ZIP Code Phon e Number [facility] [address] [place] [phone] (ABNORMAL) Hemoglobin A1c (11/23/2019 9:25 AM DIRECTOR OF SALES) Analysis Performed At Patho logist Time Signature Hemoglobin A1C 8.4 (H) 4.0 - 5.6 11/23/2019 [place] % A1C 2:05 PM [facility] Comment: Reference Range 4.0-5.6% is [...] Volume Laterality Blood 11/23/2019 9:25 AM 0 DIRECTOR OF SALES 12:27 PM DIRECTOR OF SALES Yesenia Sood APRN, VOLCANOLOGY PROFESSOR LAB BLOOD ORDERABLES Performing Organization Address City/State/ZIP Code Phon e Number [facility] [address] [place] [address] (ABNORMAL) CBC Branch Off w/Diff (11/23/2019 9:25 AM DIRECTOR OF SALES) Patholo gist Method Time Signature WBC 8.2 3.5 - 10.5 11/23/2019 [facility] [place] K/uL 9:36 AM DIRECTOR OF SALES [place] RBC 5.50 (H) 3.90 - 11/23/2019 [facility] [place] 5.00 M/uL 9:36 AM DIRECTOR OF SALES [place] Hemoglobin 14.6 12.0 - 11/23/2019 [facility] [place] 15.5 g/dL 9:36 AM DIRECTOR OF SALES [place] Hematocrit 47.1 (H) 35.0 - 11/23/2019 [facility] [place] 44.0 % 9:36 AM DIRECTOR OF SALES [place] Platelets 117 (L) 150 - 450 11/23/2019 [facility] [place] K/uL 9:36 AM DIRECTOR OF SALES [place] MCV 85.6 81.6 - 11/23/2019 [facility] [place] 98.3 fL 9:36 AM DIRECTOR OF SALES [place] MCH 26.5 26.0 - 11/23/2019 [facility] [place] 32.0 pg 9:36 AM DIRECTOR OF SALES [place] MCHC 31.0 (L) 32.0 - 11/23/2019 [facility] [place] 36.0 g/dL 9:36 AM DIRECTOR OF SALES [place] RDW 12.1 11.9 - 11/23/2019 [facility] [place] 15.5 % 9:36 AM DIRECTOR OF SALES [place] Lymphocytes % 13.6 (L) 18.0 - 11/23/2019 [facility] [place] 45.0 % 9:36 AM DIRECTOR OF SALES [place] Mid-size Cells 7.8 3.3 - 10.1 11/23/2019 [facility] [place] % 9:36 AM DIRECTOR OF SALES [place] Granulocytes/Flip 78.6 (H) 45.8 - 11/23/2019 [facility] [place] trophils 73.7 % 9:36 AM DIRECTOR OF SALES [place] Lymphocytes 1.1 0.9 - 2.9 11/23/2019 [facility] [place] Absolute K/uL 9:36 AM DIRECTOR OF SALES [place] MIDS Absolute 0.6 0.2 - 0.8 11/23/2019 [facility] [place] K/uL 9:36 AM DIRECTOR OF SALES [place] Granulocytes/Flip 6.5 2.1 - 8.7 11/23/2019 [facility] [place] trophils K/uL 9:36 AM DIRECTOR OF SALES [place] Absolute Specimen Anatomical Collection Method Collection Time Receive d Time (Source) Location / / Volume Laterality Blood 11/23/2019 9:25 AM 0 9:30 DIRECTOR OF SALES AM DIRECTOR OF SALES eYsenia Sood POST ACUTE CARE REGISTERED NURSE, VOLCANOLOGY PROFESSOR LAB BLOOD ORDERABLES Performing Organization Address City/State/ZIP Code Phon e Number [facility] [place] [address] [place] [address] (ABNORMAL) Comprehensive metabolic panel (11/23/2019 9:25 AM [facility] gist Method Time Signature Total Protein 8.1 6.3 - 8.2 11/23/2019 [place] g/dL 12:49 PM [facility] Albumin, Serum 4.8 3.5 - 5.0 11/23/2019 [place] g/dL 12:49 PM [facility] Total Bilirubin 1.0 0.1 - 1.0 11/23/2019 [place] mg/dL 12:49 PM [facility] AST 26 8 - 43 U/L 11/23/2019 [place] 12:49 PM [facility] Alkaline 64 38 - 128 11/23/2019 [place] Phosphatase U/L 12:49 PM [facility] ALT (SGPT) 19 0 - 34 U/L 11/23/2019 [place] 12:49 PM [facility] Sodium 141 135 - 145 11/23/2019 [place] mEq/L 12:49 PM [facility] Potassium 3.8 3.5 - 5.1 11/23/2019 [place] mEq/L 12:49 PM [facility] Chloride 99 98 - 107 11/23/2019 [place] mEq/L 12:49 PM [facility] CO2 30 (H) 22 - 29 11/23/2019 [place] mmol/L 12:49 PM [facility] BUN 33 (H) 5 - 25 11/23/2019 [place] mg/dL 12:49 PM [facility] Creatinine 1.9 (H) 0.4 - 1.2 11/23/2019 [place] mg/dL 12:49 PM [facility] Glucose 129 (H) 70 - 100 11/23/2019 [place] mg/dL 12:49 PM [facility] Calcium, Total,S 10.2 8.4 - 10.2 11/23/2019 [place] mg/dL 12:49 PM [facility] Specimen Anatomical Collection Method Collection Time Receive d Time (Source) Location / / Volume Laterality Blood 11/23/2019 9:25 AM 0 DIRECTOR OF SALES 12:27 PM DIRECTOR OF SALES Yesenia Sood POST ACUTE CARE REGISTERED NURSE, VOLCANOLOGY PROFESSOR LAB BLOOD ORDERABLES Performing Organization Address City/State/ZIP Code Phon e Number [facility] [address] [place] [address] documented in this encounter Visit Diagnoses Diagnosis [...] thrombocytopenia documented in this encounter Care Teams Appellate Court Judge Relationship Specialty Start Date End Date Yesenia Sood APRN, VOLCANOLOGY PROFESSOR PCP - General 05/17/18 06/17/[address] [place] [address] [place] [address] documented as of this encounter
--- OUTSIDE RECORDS SUMMARY | 2022-09-14 10:06 | XMS_ITS | Encounter Summary ---
:1960 Author Organization [facility] Address [address] [place] [address] Care Team Providers Name Role Phone Yesenia Sood APRN, HYDRAULIC OIL TOOL OPERATOR Primary Care Provider Encounter Details Date Type Department Care Team Description 11/23/2019 Lab Gonzalo Brewster Type 2 diabetes mellitus wit hout complication, with long-term current use of insulin (HCC); [address] History of thrombocytopenia; Gonzalo Brewster [place] [address] Essential hypertension [phone] Social History Tobacco Use Types Packs/Day Years [...] at Date Recorded Female 2020 3:13 PM LIVE OUT NANNY documented as of this encounter Plan of Treatment Not on filedocumented as of this encounter Procedures Procedure Name Priority Date/Time Associated Diagnosis Comme nts GLOMERULAR FILTRATION Routine 11/23/2019 9:25 Type 2 diabetes Results for this RATE AM LIVE OUT NANNY mellitus without procedure a re in complication, with the resul ts long-term current use sectio n. of insulin (HCC) Essential hypertension CBC BRANCH OFFICE Routine 11/23/2019 9:25 History of Results for this W/DIFF AM LIVE OUT NANNY thrombocytopenia procedure a re in the results section. TSH Routine 11/23/2019 9:25 Type 2 diabetes Results f or this AM LIVE OUT NANNY mellitus without procedure a re in complication, with the resul ts long-term current use sectio n. of insulin (HCC) HEMOGLOBIN A1C Routine 11/23/2019 9:25 Type 2 diabetes Results for this AM LIVE OUT NANNY mellitus without procedure a re in complication, with the resul ts long-term current use sectio n. of insulin ([facility]) LIPID PANEL Routine 11/23/2019 9:25 Type 2 diabetes Results f or this AM LIVE OUT NANNY mellitus without procedure a re in complication, with the resul ts long-term current use sectio n. of insulin ([facility]) COMPREHENSIVE Routine 11/23/2019 9:25 Type 2 diabetes Results for this METABOLIC PANEL AM LIVE OUT NANNY mellitus without procedur e are in complication, with the resul ts long-term current use sectio n. of insulin ([facility]) Essential hypertension documented in this encounter Results (ABNORMAL) Glomerular filtration rate (GFR) (11/23/2019 9:25 AM LIVE OUT NANNY) P athologist Signature GFR 27 (A) 11/23/2019 [facility] 12:49 PM [facility] 33 (A) 11/23/2019 [facility] Niuean GFR 12:49 PM [facility] Comment: GFR calculated from serum creatinine v alue Chronic Kidney Disease less than 60 mL/m in/1.73 m2 Kidney Failure less than 15 mL/min/1.73 m2 Note: effective 02/23/07 IDMS-Traceable MDRD Study Equation used. Specimen Anatomical Collection Method Collection Time Receive d Time (Source) Location / / Volume Laterality 11/23/2019 9:25 AM 0 9:25 LIVE OUT NANNY AM LIVE OUT NANNY Yesenia Sood APRN, HYDRAULIC OIL TOOL OPERATOR LAB BLOOD ORDERABLES Performing Organization Address City/State/ZIP Code Phon e Number [facility] [address] [place] [address] (ABNORMAL) Comprehensive metabolic panel (11/23/2019 9:25 AM LIVE OUT NANNY) Patholo gist Method Time Signature Total Protein 8.1 6.3 - 8.2 11/23/2019 [facility] g/dL 12:49 PM [facility] Albumin, Serum 4.8 3.5 - 5.0 11/23/2019 [facility] g/dL 12:49 PM [facility] Total Bilirubin 1.0 0.1 - 1.0 11/23/2019 [place] mg/dL 12:49 PM [facility] AST 26 8 - 43 U/L 11/23/2019 [facility] 12:49 PM [facility] Alkaline 64 38 - 128 11/23/2019 [facility] Phosphatase U/L 12:49 PM [facility] ALT (SGPT) 19 0 - 34 U/L 11/23/2019 [facility] 12:49 PM [facility] Sodium 141 135 - 145 11/23/2019 [facility] mEq/L 12:49 PM [facility] Potassium 3.8 3.5 - 5.1 11/23/2019 [facility] mEq/L 12:49 PM [facility] Chloride 99 98 - 107 11/23/2019 [facility] mEq/L 12:49 PM [facility] CO2 30 (H) 22 - 29 11/23/2019 [facility] mmol/L 12:49 PM [facility] BUN 33 (H) 5 - 25 11/23/2019 [facility] mg/dL 12:49 PM [facility] Creatinine 1.9 (H) 0.4 - 1.2 11/23/2019 [facility] mg/dL 12:49 PM [facility] Glucose 129 (H) 70 - 100 11/23/2019 [facility] mg/dL 12:49 PM [facility] Calcium, Total,S 10.2 8.4 - 10.2 11/23/2019 [facility] mg/dL 12:49 PM [facility] Specimen Anatomical Collection Method Collection Time Receive d Time (Source) Location / / Volume Laterality Blood 11/23/2019 9:25 AM 0 LIVE OUT NANNY 12:27 PM LIVE OUT NANNY Yesenia Sood APRN, HYDRAULIC OIL TOOL OPERATOR LAB BLOOD ORDERABLES Performing Organization Address City/State/ZIP Code Phon e Number [facility] [address] [place] [address] (ABNORMAL) CBC Branch Off w/Diff (11/23/2019 9:25 AM LIVE OUT NANNY) [facility] gist Method Time Signature WBC 8.2 3.5 - 10.5 11/23/2019 [facility] [place] K/uL 9:36 AM LIVE OUT NANNY [place] RBC 5.50 (H) 3.90 - 11/23/2019 [facility] [place] 5.00 M/uL 9:36 AM LIVE OUT NANNY [place] Hemoglobin 14.6 12.0 - 11/23/2019 [facility] [place] 15.5 g/dL 9:36 AM LIVE OUT NANNY [place] Hematocrit 47.1 (H) 35.0 - 11/23/2019 [facility] [place] 44.0 % 9:36 AM LIVE OUT NANNY [place] Platelets 117 (L) 150 - 450 11/23/2019 [facility] [place] K/uL 9:36 AM LIVE OUT NANNY [place] MCV 85.6 81.6 - 11/23/2019 [facility] [place] 98.3 fL 9:36 AM LIVE OUT NANNY [place] MCH 26.5 26.0 - 11/23/2019 [facility] [place] 32.0 pg 9:36 AM LIVE OUT NANNY [place] MCHC 31.0 (L) 32.0 - 11/23/2019 [facility] [place] 36.0 g/dL 9:36 AM LIVE OUT NANNY [place] RDW 12.1 11.9 - 11/23/2019 [facility] [place] 15.5 % 9:36 AM LIVE OUT NANNY [place] Lymphocytes % 13.6 (L) 18.0 - 11/23/2019 [facility] [place] 45.0 % 9:36 AM LIVE OUT NANNY [place] Mid-size Cells 7.8 3.3 - 10.1 11/23/2019 [facility] [place] % 9:36 AM LIVE OUT NANNY [place] Granulocytes/Flip 78.6 (H) 45.8 - 11/23/2019 [facility] [place] trophils 73.7 % 9:36 AM LIVE OUT NANNY [place] Lymphocytes 1.1 0.9 - 2.9 11/23/2019 [facility] [place] Absolute K/uL 9:36 AM LIVE OUT NANNY [place] MIDS Absolute 0.6 0.2 - 0.8 11/23/2019 [facility] [place] K/uL 9:36 AM LIVE OUT NANNY [place] Granulocytes/Flip 6.5 2.1 - 8.7 11/23/2019 [facility] [place] trophils K/uL 9:36 AM LIVE OUT NANNY [place] Absolute Specimen Anatomical Collection Method Collection Time Receive d Time (Source) Location / / Volume Laterality Blood 11/23/2019 9:25 AM 0 9:30 LIVE OUT NANNY AM LIVE OUT NANNY Yesenia Sood APRN, HYDRAULIC OIL TOOL OPERATOR LAB BLOOD ORDERABLES Performing Organization Address City/State/ZIP Code Phon e Number [facility] [place] [address] [place] [address] (ABNORMAL) Hemoglobin A1c (11/23/2019 9:25 AM LIVE OUT NANNY) [facility] Signature Hemoglobin A1C 8.4 (H) 4.0 - 5.6 11/23/2019 [place] % A1C 2:05 PM [facility] Comment: Reference Range 4.0-5.6% is for [...] Volume Laterality Blood 11/23/2019 9:25 AM 0 LIVE OUT NANNY 12:27 PM LIVE OUT NANNY Yesenia Sood APRN HYDRAULIC OIL TOOL OPERATOR LAB BLOOD ORDERABLES Performing Organization Address City/State/ZIP Code Phon e Number [facility] [address] [place] [address] (ABNORMAL) Lipid panel (11/23/2019 9:25 AM LIVE OUT NANNY) athologist Signature Cholesterol 135 0 - 199 11/23/2019 [facility] mg/dL 12:49 PM [facility] Comment: Recommended by National Cholesterol Education Program (ATP III) -------- Cholesterol Ranges -------- <200 ? Desirable 200-239 ? Borderline high >=240 ? High Triglycerides 169 (A) 0 - 149 mg/dL 11/23/2019 12:49 PM [facility] Comment: -------- TRIG Ranges -------- <150 ?Normal 150-199 ? Borderline high 200-499 ? High >=500 ? Very high HDL 36 (A) 40 - 60 mg/dL 11/23/2019 12:49 PM [facility] Comment: -------- HDL Ranges -------- <40 ?Low 40-59 ?Normal >=60 ? Optimal LDL Calculated 65 0 - 99 mg/dL 11/23/2019 12:49 PM CS T [facility] Comment: -------- LDL Ranges -------- <100 ? Optimal 100-129 ?Near optimal/above op timal 130-159 ?Borderline high 160-189 ?High >=190 ?Very high Fasting? Yes 11/23/2019 9:31 AM LIVE OUT NANNY [facility] Specimen Anatomical Collection Method Collection Time Receive d Time (Source) Location / / Volume Laterality Blood 11/23/2019 9:25 AM 0 LIVE OUT NANNY 12:27 PM LIVE OUT NANNY Yesenia Sood APRN, HYDRAULIC OIL TOOL OPERATOR LAB BLOOD ORDERABLES Performing Organization Address City/State/ZIP Code Phon e Number [facility] [address] [place] [address] TSH (11/23/2019 9:25 AM LIVE OUT NANNY) P athologist Signature TSH, Sensitive 2.98 0.46 - 11/24/2019 [facility] L 4.68 mIU/L 2:06 PM LIVE OUT NANNY [facility] Comment: The results from this [...] Volume Laterality Blood 11/23/2019 9:25 AM 0 LIVE OUT NANNY 12:37 PM LIVE OUT NANNY Yesenia Sood APRN, HYDRAULIC OIL TOOL OPERATOR LAB BLOOD ORDERABLES Performing Organization Address City/State/ZIP Code Phon e Number [facility] [address] [place] [address] documented in this encounter Visit Diagnoses Diagnosis Type 2 diabetes mellitus without complic ation, with long-term current use of insulin (HCC) History of thrombocytopenia Essential hypertension Unspecified essential hypertension documented in this encounter Care Teams Lan Administrator Relationship Specialty Start Date End Date Yesenia Sood APRN, HYDRAULIC OIL TOOL OPERATOR PCP - General 05/17/18 06/17/[address] [place] [id number] documented as of this encounter
--- OUTSIDE RECORDS SUMMARY | 2022-09-14 10:07 | XMS_ITS | Encounter Summary ---
:1960 Author Organization [facility] Address [address] [place] [address] Care Team Providers Name Role Phone Yesenia Sood APRN, CNP Primary Care Provider [phone] Reason for Referral Consultation (Routine) - Closed Specialty Diagnoses / Procedures Referred By Contact Refer red To Contact Sleep Medicine Diagnoses Essential (primary) hypertension Yesenia Sood APRN, CNP [address] [place] [address] Referral ID Status Reason Start Date Expiration Date Visits V isits Requested Authorized [id number] Closed Specialty 03/15/2019 03/15/2020 1 1 Services Required Scheduling Instructions Staff from this department will contact the patient to schedule an appointment. 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 Plan of Treatment Scheduled Referrals Name Type Priority Associated Diagnoses Order S chedule Ambulatory referral Outpatient Referral Routine Essential (pérez betsey) Ordered: to Sleep Medicine hypertension 03/15/2019 documented as of this encounter Visit Diagnoses Diagnosis Essential (primary) hypertension - Prima ry Unspecified essential hypertension documented in this encounter Care Teams Chief Dispatcher Relationship Specialty Start Date End Date Yesenia Sood, HORTICULTURE SUPERVISOR, CIVIL ENGINEER HELPER PCP - General 05/17/18 06/17/20 [address] [place] [address] documented as of this encounter
--- OUTSIDE RECORDS SUMMARY | 2022-09-14 10:07 | XMS_ITS | Encounter Summary ---
:1960 Author Organization [facility] Address [address] [place] [address] Care Team Providers Name Role Phone Yesenia Sood FRUIT COORDINATOR, CEMENTING BULK MATERIAL OPERATOR Primary Care Provider [phone] Encounter Details Date Type Department Care Team Description 02/10/2019 Telephone [place] Yesenia Sood, [address] FRUIT COORDINATOR, CEMENTING BULK MATERIAL OPERATOR [place] [address] [address] [facility] [address] [phone] [place], [place] [address] Social History Tobacco Use Types Packs/Day Years Used Date Smoking Tobacco: Never Smokeless Tobacco: Never Alcohol Use Standard Drinks/Week Comments No 0 [...] at Date Recorded 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 documented in this encounter Plan of Treatment Not on filedocumented as of this encounter Visit Diagnoses Not on filedocumented in this encounter Care Teams Head Of Insight Relationship Specialty Start Date End Date Yesenia Sood APRN, CEMENTING BULK MATERIAL OPERATOR PCP - General 05/17/18 06/17/20 100 [facility] [place] [address] documented as of this encounter
--- OUTSIDE RECORDS SUMMARY | 2022-09-14 10:07 | XMS_ITS | Encounter Summary ---
:1960 Author Organization [facility] Address [address] [place] [address] Care Team Providers Name Role Phone Yesenia Sood APRN, SUPERVISOR POULTRY FARM Primary Care Provider [phone] Reason for Visit Reason Onset Date Comments Med Refill 05/22/2019 Encounter Details Date Type Department Care Team Description 05/22/2019 Refill [place] Yesenia Sood Hyperlipoproteinemia (Primar y [address] M, DOOR TO DOOR FUNDRAISING COLLECTOR, SUPERVISOR POULTRY FARM Dx) [place], [place] [address] [facility] [address] [address] [place], [place] [phone] [address] Social History Tobacco Use Types Packs/Day Years [...] at Date Recorded 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
--- OUTSIDE RECORDS SUMMARY | 2022-09-14 10:07 | XMS_ITS | Encounter Summary ---
:1960 Author Organization [facility] Address [address] [place] [address] Care Team Providers Name Role Phone Yesenia Sood ELECTRON GUN INSPECTOR, DENTAL SURGERY DOCTOR Primary Care Provider [phone] Reason for Visit Reason Onset Date Comments RX 02/10/2019 Encounter Details Date Type Department Care Team Description 02/10/2019 Telephone [place] Yesenia Sood, RX [address] ELECTRON GUN INSPECTOR, DENTAL SURGERY DOCTOR [place], [place] [address] [address] [facility] [address] [phone] [place], [place] [address] Social History Tobacco Use [...] at Date Recorded 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 Provided them with Info from labs drawn on 11/29 Telephone Encounter - Shila Mitchell - 02/10/2019 9:41 AM CDT Katalina from [facility] is needing clarification on RX. Please call her at [phone]. documented in this encounter Plan of Treatment Not on filedocumented as of this encounter Visit Diagnoses Not on filedocumented in this encounter Care Teams Facsimile Operator Relationship Specialty Start Date End Date Yesenia Sood, ELECTRON GUN INSPECTOR, DENTAL SURGERY DOCTOR PCP - General 05/17/18 06/17/20 100 [facility] [place] [address] documented as of this encounter
--- OUTSIDE RECORDS SUMMARY | 2022-09-14 10:07 | XMS_ITS | Encounter Summary ---
:1960 Author Organization [facility] Address [address] [place] [address] Care Team Providers Name Role Phone Yesenia Sood SUPERVISOR PIPE MANUFACTURE, DRY DIP WORKER Primary Care Provider [phone] Reason for Visit Reason Onset Date Comments Med Refill 01/26/2019 Encounter Details Date Type Department Care Team Description 01/26/2019 Refill [place] Yesenia Sood, Type 2 diabetes [address] SUPERVISOR PIPE MANUFACTURE, DRY DIP WORKER mellitus without [place], [place] [address] complication, with [phone] [place], [place] [address] long-term current use of insul in ([facility]) (Primary Dx) Social History Tobacco Use Types [...] at Date Recorded 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 Telephone Encounter - Lili Lucero RN - 01/26/2019 9:31 AM CDT Patient informed, please fax to [facility] pharmacy in [place]. Telephone Encounter - Yesenia Sood APRN, MINESH - 01/26/2019 9:23 AM CDT The patient is due for a HGB A1c in Feb, 2019, the order has been placed, can you please notify the patient. Denise, Alberto Telephone Encounter - Lili Lucero RN - 01/26/2019 8:22 AM CDT Rx pended for signature. Telephone Encounter - Ирина Palmer LPN - 01/26/2019 8:13 AM CDT BD (Alayna Mopapp), Ultra-Fine III Mini Pen Needle, 31 Gx5mm [...] Primary documented in this encounter Care Teams Human Development Professor Relationship Specialty Start Date End Date Yesenia Sood APRN, DRY DIP WORKER PCP - General 05/17/18 06/17/20 100 [facility] [place] [address] documented as of this encounter
--- OUTSIDE RECORDS SUMMARY | 2022-09-14 10:07 | XMS_ITS | Encounter Summary ---
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
--- OUTSIDE RECORDS SUMMARY | 2022-09-14 10:07 | XMS_ITS | Encounter Summary ---
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
--- OUTSIDE RECORDS SUMMARY | 2022-09-14 10:07 | XMS_ITS | Encounter Summary ---
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
--- OUTSIDE RECORDS SUMMARY | 2022-09-14 10:07 | XMS_ITS | Encounter Summary ---
:1960 Author Organization [facility] Address [address] [place] [address] Care Team Providers Name Role Phone Yesenia Sood APRN, CNP Primary Care Provider [phone] Reason for Visit Reason Onset Date Comments Pt returned call to clinic. 02/09/2019 Encounter Details Date Type Department Care Team Description 02/09/2019 Telephone [place] Yesenia Sood, Pt returned call to [address] MINESH HANSEN clinic. 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 Telephone Encounter - Perla Bennett MA - 02/09/2019 11:18 AM CDT Alberto did you try and contact the patient documented in this encounter Plan of Treatment Not on filedocumented as of this encounter Visit Diagnoses Not on filedocumented in this encounter Care Teams Solutions Sales Consultant Relationship Specialty Start Date End Date Yesenia Sood APRN, CONFIGURATION ANALYST PCP - General 05/17/18 06/17/20 100 [facility] [place] [address] documented as of this encounter
--- OUTSIDE RECORDS SUMMARY | 2022-09-14 10:07 | XMS_ITS | Encounter Summary ---
:1960 Author Organization [facility] Address [address] [place] [address] Care Team Providers Name Role Phone Yesenia Sood APRN, CNP Primary Care Provider [phone] Reason for Referral Consultation (Routine) - Closed Specialty Diagnoses / Procedures Referred By Contact Refer red To Contact Diagnoses Bilateral lower extremity edema Essential hypertension Snoring Yesenia Sood [facility] MINESH HANSEN [address] [place] [address] Referral ID Status Reason Start Date Expiration Date Visits Requ ested Visits Authorized [id number] Closed 02/09/2019 02/10/2020 1 1 Reason for Visit Reason Comments Diabetes Encounter Details Date Type Department Care Team Description 02/09/2019 Office Visit [place] Yesenia Sood Type 2 diabetes mellitus wit h complication, with long-term current use of insulin (HCC) (Primary Dx); [address] M, MINESH HANSEN Essential hypertension; [place], [place] [address] Snoring; [address] [place], [place] Discoloration of skin of low er leg; [phone] [address] Bilateral lower extremity edema; [phone] Thrombocytopeni a (HCC) (Work) Social History Tobacco [...] at Date Recorded 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 Yesenia Sood APRN, MINESH documented in this encounter Plan of Treatment [...] 145 02/09/2019 [place] mEq/L 1:00 PM CDT [facility] Potassium 4.1 3.5 - 5.1 02/09/2019 [place] mEq/L 1:00 PM [facility] Chloride 106 98 - 107 02/09/2019 [place] mEq/L 1:00 PM [facility] CO2 27 22 - 29 02/09/2019 [place] mmol/L 1:00 PM [facility] Creatinine 1.6 (H) 0.4 - 1.2 02/09/2019 [place] mg/dL 1:00 PM [facility] BUN 22 5 - 25 02/09/2019 [place] mg/dL 1:00 PM [facility] Glucose 158 (H) 70 - 100 02/09/2019 [place] mg/dL 1:00 PM [facility] Calcium, 9.5 8.4 - 10.2 02/09/2019 [place] Total,S mg/dL 1:00 PM [facility] Fasting? Yes 02/09/2019 [facility] 9:04 AM CDT [place] Specimen Anatomical Collection Method Collection Time Receive d Time (Source) Location / / Volume Laterality Blood (Blood, 02/09/2019 8:56 AM 02/10/20 19 9:04 Venous) CDT AM CDT Yesenia Sood APRN, SKID MAN LAB BLOOD ORDERABLES Performing Organization Address City/State/ZIP Code Phon e Number [facility] [address] [place] [address] [facility] [address] [place] [address] LABORATORY (ABNORMAL) CBC Branch Off w/Diff (02/09/2019 8:56 AM CDT) [facility] Method Time Signature WBC 7.6 3.5 - 10.5 02/09/2019 [facility] K/uL 9:06 AM CDT [place] RBC 4.99 3.90 - 02/09/2019 [facility] 5.00 M/uL 9:06 AM CDT [place] Hemoglobin 14.4 12.0 - 02/09/2019 [facility] 15.5 g/dL 9:06 AM CDT [place] Hematocrit 42.1 35.0 - 02/09/2019 [facility] 44.0 % 9:06 AM CDT [place] Platelets 117 (L) 150 - 450 02/09/2019 [facility] K/uL 9:06 AM CDT [place] MCV 84.4 81.6 - 02/09/2019 [facility] 98.3 fL 9:06 AM CDT [place] MCH 28.9 26.0 - 02/09/2019 [facility] 32.0 pg 9:06 AM CDT [place] MCHC 34.2 32.0 - 02/09/2019 [facility] 36.0 g/dL 9:06 AM CDT [place] RDW 12.2 11.9 - 02/09/2019 [facility] 15.5 % 9:06 AM CDT [place] Lymphocytes % 15.0 (L) 18.0 - 02/09/2019 [facility] 45.0 % 9:06 AM CDT [place] Mid-size Cells 7.6 3.3 - 10.1 02/09/2019 [facility] % 9:06 AM CDT [place] Granulocytes/Flip 77.4 (H) 45.8 - 02/09/2019 [facility] trophils 73.7 % 9:06 AM CDT [place] Lymphocytes 1.1 0.9 - 2.9 02/09/2019 [facility] Absolute K/uL 9:06 AM CDT [place] MIDS Absolute 0.6 0.2 - 0.8 02/09/2019 [facility] K/uL 9:06 AM CDT [place] Granulocytes/Flip 5.9 2.1 - 8.7 02/09/2019 [facility] trophils K/uL 9:06 AM CDT [place] Absolute Specimen Anatomical Collection Method Collection Time Receive d Time (Source) Location / / Volume Laterality Blood (Blood, 02/09/2019 8:56 AM 02/10/20 19 9:04 Venous) CDT AM CDT Yesenia Sood HOUSEKEEPER HOME, SKID MAN LAB BLOOD ORDERABLES Performing Organization Address City/State/ZIP Code Phon e Number [facility] [place] [address] [place], [place] [address] (ABNORMAL) Hemoglobin A1c (02/09/2019 8:56 AM CDT) Analysis Performed At Patho logist Time Signature Hemoglobin A1C 7.3 (H) 4.0 - 5.6 02/09/2019 [place] % A1C 1:18 PM CDT MEDICAL [facility]ENTER [...] CDT 12:10 PM CDT Yesenia Sood APRN, SKID MAN LAB BLOOD ORDERABLES Performing Organization Address City/State/ZIP Code Phon e Number [facility] [address] [place] [address] documented in this encounter Visit Diagnoses Diagnosis Type 2 diabetes mellitus with complicati on, with long-term current use of insulin (HCC) - Primary Essential hypertension Unspecified essential hypertension Snoring Other dyspnea and respiratory abnormalit y Discoloration of skin of lower leg Bilateral lower extremity edema Thrombocytopenia (HCC) Unspecified thrombocytopenia documented in this encounter Care Teams Supervisor Typesetting Relationship Specialty Start Date End Date Yesenia Sood APRN, SKID MAN PCP - General 05/17/18 06/17/20 100 [place] [address] documented as of this encounter
--- OUTSIDE RECORDS SUMMARY | 2022-09-14 10:07 | XMS_ITS | Encounter Summary ---
:1960 Author Organization [facility] Address [address] [place] [address] Care Team Providers Name Role Phone Yesenia Sood APRN, BUSINESS DEVELOPMENT RECRUITER Primary Care Provider [phone] Encounter Details Date Type Department Care Team Description 02/09/2019 Lab [place] Bilateral lower extremity ed kyle; [address] Thrombocytopenia (HCC); [place] [address] Type 2 diabetes mellitus wit h complication, with long-term current use of insulin (HCC); [phone] Type 2 diabetes mellitus without complication, with long-term current use of insulin ([facility]) Social History Tobacco Use Types Packs/Day Years [...] at Date Recorded 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 Specimen Anatomical Collection Method Collection Time Receive d Time (Source) Location / / Volume Laterality 02/09/2019 8:56 AM 9 8:56 CDT AM CDT Yesenia Sood FIELD INSTRUCTOR, BUSINESS DEVELOPMENT RECRUITER LAB BLOOD ORDERABLES Performing Organization Address City/State/ZIP Code Phon e Number [facility] [address] [place] [address] (ABNORMAL) Hemoglobin A1c (02/09/2019 8:56 AM CDT) Analysis Performed At Patho logist Time Signature Hemoglobin A1C 7.3 (H) 4.0 - 5.6 02/09/2019 [place] % A1C 1:18 PM [facility] Comment: Reference Range 4.0-5.6% [...] CDT 12:10 PM CDT Yesenia Sood APRN, BUSINESS DEVELOPMENT RECRUITER LAB BLOOD ORDERABLES Performing Organization Address City/State/ZIP Code Phon e Number [facility] [address] [place] [address] (ABNORMAL) CBC Branch Off w/Diff (02/09/2019 8:56 AM CDT) [facility] Method Time Signature WBC 7.6 3.5 [...] [place] Granulocytes/Flip 5.9 2.1 - 8.7 02/09/2019 [facility] [place] trophils K/uL 9:06 AM [facility] Absolute Specimen Anatomical Collection Method Collection Time Receive d Time (Source) Location / / Volume Laterality Blood (Blood, 02/09/2019 8:56 AM 02/10/20 19 9:04 Venous) CDT AM CDT Yesenia Sood APRN, MINESH LAB BLOOD ORDERABLES Performing Organization Address City/[facility] Code Phon e Number [facility] [place] [address] [place] [address] (ABNORMAL) Basic metabolic panel (02/09/2019 8:56 AM CDT) Analysis Performed At [facility] logist Time Signature Sodium 142 135 - 145 02/09/2019 [place] mEq/L 1:00 PM [facility] Potassium 4.1 3.5 - 5.1 02/09/2019 [place] mEq/L 1:00 PM [facility] Chloride 106 98 - 107 02/09/2019 [place] mEq/L 1:00 PM [facility] CO2 27 22 - 29 02/09/2019 [place] mmol/L 1:00 PM [facility] Creatinine 1.6 (H) 0.4 - 1.2 02/09/2019 [place] mg/dL 1:00 PM [facility] BUN 22 5 - 25 02/09/2019 [place] mg/dL 1:00 PM [facility] Glucose 158 (H) 70 - 100 02/09/2019 [place] mg/dL 1:00 PM [facility] Calcium, 9.5 8.4 - 10.2 02/09/2019 [place] Total,S mg/dL 1:00 PM [facility] Fasting? Yes 02/09/2019 [facility] [place] 9:04 AM [facility] Specimen Anatomical Collection Method Collection Time Receive d Time (Source) Location / / Volume Laterality Blood (Blood, 02/09/2019 8:56 AM 02/10/20 19 9:04 Venous) CDT AM CDT Yesenia Sood APRN, CNP LAB BLOOD ORDERABLES Performing Organization Address City/[facility]/ZIP Code Phon e Number [facility] [place] BRE[place]STER [address] [place] [address] [facility] [address] [place] [address] LABORATORY documented in this encounter Visit Diagnoses Diagnosis Bilateral lower extremity edema Thrombocytopenia (HCC) Unspecified thrombocytopenia Type 2 diabetes mellitus with complicati on, with long-term current use of insulin (HCC) Type 2 diabetes mellitus without complic ation, with long-term current use of insulin (HCC) documented in this encounter Care Teams Anesthesia Associate Relationship Specialty Start Date End Date Yesenia Sood APRN, BUSINESS DEVELOPMENT RECRUITER PCP - General 05/17/18 06/17/[address] [place] [address] documented as of this encounter
--- OUTSIDE RECORDS SUMMARY | 2022-09-14 10:07 | XMS_ITS | Encounter Summary ---
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 The patient is taking prql-bye-kynbyyo cough medication and is uncertain if this is contributing to her elevated blood sugars. The patient and her are leaving for [place] next Wednesday, in 1 week, and will [...] care with the patient. Prescribed a Z-Regan, guaifenesin with codeine, and an albuterol inhaler [...] this plan of care. Yesenia Sood APRN, COMMERCIAL OCEAN CLAMMER documented in this encounter Plan of Treatment Not on filedocumented as of this encounter Visit Diagnoses Diagnosis Cough - Primary Abnormal breath sounds Abnormal chest sounds documented in this encounter Care Teams Auto Radiator Specialist Relationship Specialty Start Date End Date Yesenia Sood APRN, COMMERCIAL OCEAN CLAMMER PCP - General 05/17/18 06/17/20 100 [place] [address] documented as of this encounter
--- OUTSIDE RECORDS SUMMARY | 2022-09-14 10:07 | XMS_ITS | Encounter Summary ---
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 Letter sent. documented in this encounter Plan of Treatment Not on filedocumented as of this encounter Visit Diagnoses Not on filedocumented in this encounter Care Teams Tractor Trailer Mechanic Relationship Specialty Start Date End Date Yesenia Sood APRN, CNP PCP - General 05/17/18 06/17/20 [address] [place], [place] [address] documented as of this encounter
--- OUTSIDE RECORDS SUMMARY | 2022-09-14 10:07 | XMS_ITS | Encounter Summary ---
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
--- OUTSIDE RECORDS SUMMARY | 2022-09-14 10:07 | XMS_ITS | Encounter Summary ---
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
--- OUTSIDE RECORDS SUMMARY | 2022-09-14 10:07 | XMS_ITS | Encounter Summary ---
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
--- OUTSIDE RECORDS SUMMARY | 2022-09-14 10:07 | XMS_ITS | Encounter Summary ---
:1960 Author Organization [facility] Address [address] [place] [address] Care Team Providers Name Role Phone Yesenia Sood FLATBED TRUCK DRIVER, FRUIT OR NUT FARMER Primary Care Provider [phone] Reason for Visit Reason Onset Date Comments Med Refill 05/25/2019 Encounter Details Date Type Department Care Team Description 05/25/2019 Refill [place] Yesenia Sood, Type [address] FLATBED TRUCK DRIVER, MINESH mellitus without [place], [place] [address] complication, with [phone] [place], [place] [address] long-term current use of insul in ([facility]) (Primary Dx) Social History Tobacco Use [...] at Date Recorded 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
--- OUTSIDE RECORDS SUMMARY | 2022-09-14 10:07 | XMS_ITS | Encounter Summary ---
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
--- OUTSIDE RECORDS SUMMARY | 2022-09-14 10:08 | XMS_ITS | Encounter Summary ---
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 PICKLER documented in this encounter Plan of Treatment Not on filedocumented as of this encounter Visit Diagnoses Not on filedocumented in this encounter Care Teams Piece Worker Relationship Specialty Start Date End Date Yesenia Sood, CUSHION FILLER, INVERTEBRATE PALEONTOLOGIST PCP - General 05/17/18 06/17/20 100 [facility] [place] [address] documented as of this encounter
--- OUTSIDE RECORDS SUMMARY | 2022-09-14 10:08 | XMS_ITS | Encounter Summary ---
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 RMATION SECURITY RISK ANALYST documented in this encounter Plan of Treatment Not on filedocumented as of this encounter Visit Diagnoses Diagnosis Insomnia, unspecified type - Primary documented in this encounter Care Teams Veterinary Practice Manager Relationship Specialty Start Date End Date Yesenia Sood APRN, MINESH PCP - General 05/17/18 06/17/20 [address] [place] [address] documented as of this encounter
--- OUTSIDE RECORDS SUMMARY | 2022-09-14 10:08 | XMS_ITS | Encounter Summary ---
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 The patient lower extremity edema is a side effect of the medication. GATIONIST DESIGNER documented in this encounter Plan of Treatment Not on filedocumented as of this encounter Visit Diagnoses Not on filedocumented in this encounter Care Teams Motor Lodge Clerk Relationship Specialty Start Date End Date Yesenia Sood APRN, CNP PCP - General 05/17/18 06/17/20 [address] [place] [address] documented as of this encounter
--- OUTSIDE RECORDS SUMMARY | 2022-09-14 10:08 | XMS_ITS | Encounter Summary ---
:1960 Author Organization [facility] Address [address] [place] [address] Care Team Providers Name Role Phone Yesenia Sood APRN, CNP Primary Care Provider [phone] Reason for Visit Reason Onset Date Comments Blood Pressure Check 10/05/2018 Encounter Details Date Type Department Care Team Description 10/05/2018 Telephone [place] Yesenia Sood, Blood Pressure Check [address] [place], [place] [address] 100 [facility] [phone] [place], [place] [address] Social History Tobacco Use [...] at Date Recorded 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 The patient return for blood pressure and pulse recheck next week, and monitoring, with consideration of adding at the med. AD LASTER Telephone Encounter - Perla Bennett MA - 10/05/2018 2:23 PM CST Patient here for BP check. Patients bp was 142/80 pulse 67 AD LASTER documented in this encounter Plan of Treatment Not on filedocumented as of this encounter Visit Diagnoses Diagnosis Essential hypertension - Primary Unspecified essential hypertension documented in this encounter Care Teams Sharemilker Relationship Specialty Start Date End Date Yesenia Sood, BREAST SURGEON, INTEGRATION CONSULTANT PCP - General 05/17/18 06/17/20 100 [facility] [place] [address] documented as of this encounter
--- OUTSIDE RECORDS SUMMARY | 2022-09-14 10:08 | XMS_ITS | Encounter Summary ---
:1960 Author Organization [facility] Address [address] [place] [address] Care Team Providers Name Role Phone Yesenia Sood EMPLOYMENT APPEALS EXAMINER, CONFERENCE CENTER COORDINATOR Primary Care Provider [phone] Reason for Visit Reason Onset Date Comments Registry management 09/22/2018 Encounter Details Date Type Department Care Team Description 09/22/2018 Telephone [place] Yesenia Sood, Registry management [address] EMPLOYMENT APPEALS EXAMINER, MINESH [place], [place] [address] 100 [facility] [phone] [place], [place] [address] Social History Tobacco Use [...] at Date Recorded 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 TED CIRCUIT BOARD DESIGNER Telephone Encounter - Lili Lucero RN - 09/22/2018 3:16 PM CST Please call patient to schedule a nurse only blood pressure check as it was slightly elevated at herlast visit. TED CIRCUIT BOARD DESIGNER documented in this encounter Plan of Treatment Not on filedocumented as of this encounter Visit Diagnoses Not on filedocumented in this encounter Care Teams Medical Office Clerk Relationship Specialty Start Date End Date Yesenai Sood APRN, CONFERENCE CENTER COORDINATOR PCP - General 05/17/18 06/17/20 100 [facility] [place] [address] documented as of this encounter
--- OUTSIDE RECORDS SUMMARY | 2022-09-14 10:08 | XMS_ITS | Encounter Summary ---
:1960 Author Organization [facility] Address [address] [place] [address] Care Team Providers Name Role Phone Yesenia Sood REGIONAL TRANSFER LIAISON, NUCLEAR REACTOR ENGINEER Primary Care Provider [phone] Reason for Visit Reason Onset Date Comments GLUCOSE METER 11/23/2018 refill Encounter Details Date Type Department Care Team Description 11/23/2018 Telephone [place] Yesenia Sood, GLUCOSE METER (refill) [address] REGIONAL TRANSFER LIAISON, NUCLEAR REACTOR ENGINEER [place], [place] [address] 100 [facility] [phone] [place], [place] [address] Social History Tobacco Use [...] at Date Recorded 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 THERAPIST Telephone Encounter - Lili Lucero RN - 11/24/2018 8:33 AM CST Please fax to [facility] in [place]. THERAPIST Telephone Encounter - Yesenia Sood APRN, CNP - 11/23/2018 2:32 PM PLAY THERAPIST Signed. Thank you Lili for doing this much appreciated. Please call the patient and let her know this has been sent, and only if you feel she needs the callback. Alberto THERAPIST Telephone Encounter - Lili Lucero RN - 11/23/2018 2:26 PM CST Patient requesting Rx for a new Accucheck Betsey Plus meter with lancets and test strips be sent to [facility] In . Pended for your review. THERAPIST Telephone Encounter - Michelle Thompson - 11/23/2018 1:43 PM CST The patient would like to speak with Alberto regarding her glucose meter. THERAPIST documented in this encounter Plan of Treatment Not on filedocumented as of this encounter Visit Diagnoses Diagnosis Type 2 diabetes mellitus without complic ation, with long-term current use of insulin (HCC) - Primary documented in this encounter Care Teams Bioinformatics Analyst Relationship Specialty Start Date End Date Yesenia Sood APRN, NUCLEAR REACTOR ENGINEER PCP - General 05/17/18 06/17/[address] [place] [address] documented as of this encounter
--- OUTSIDE RECORDS SUMMARY | 2022-09-14 10:08 | XMS_ITS | Encounter Summary ---
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 GLOMERULAR Routine 11/14/2018 9:37 Type 2 diabetes mellitus Results for this FILTRATION RATE AM OIL SEAL ASSEMBLER without complication, pro cedure are in with long-term current the r esults use of insulin ([facility]) section . CBC BRANCH OFFICE Routine 11/14/2018 9:37 Thrombocytopenia (HC C) Results for this W/DIFF AM OIL SEAL ASSEMBLER procedure are i n the results section. HEMOGLOBIN A1C Routine 11/14/2018 9:37 Type 2 diabetes mellitu s Results for this AM OIL SEAL ASSEMBLER without complication, proced ure are in with long-term current the r esults use of insulin ([facility]) section . LIPID PANEL Routine 11/14/2018 9:37 Type 2 diabetes mellitus Results for this AM OIL SEAL ASSEMBLER without complication, proced ure are in with long-term current the r esults use of insulin ([facility]) section . BASIC METABOLIC Routine 11/14/2018 9:37 Type 2 diabetes mellit us Results for this PANEL AM OIL SEAL ASSEMBLER without complication, proced ure are in with long-term current the r esults use of insulin ([facility]) section . documented in this encounter Results (ABNORMAL) Microalbumin/Creatinine Ratio (11/14/2018 9:44 AM OIL SEAL ASSEMBLER) Analysis Performed At Patho logist Time Signature Microalbumin,m 29.5 (H) 0.0 - 16.6 11/14/2018 [place] g/day mg/L 1:08 PM [facility] Comment: . Creatinine, Urine 154 mg/dL 11/14/2018 1:08 PM [facility] Comment: No established reference range. Microalb/Creat Ratio 19 0 - 24 mg/g 11/14/2018 1:0 8 PM [facility] Specimen Anatomical Collection Method Collection Time Receive d Time (Source) Location / / Volume Laterality Urine (Urine, 11/14/2018 9:44 AM 11/14/19 19 Clean Catch) OIL SEAL ASSEMBLER 12:13 PM OIL SEAL ASSEMBLER Yesenia Sood APRN, MANAGER UNIVERSAL LAB URINE ORDERABLES Performing Organization Address City/State/ZIP Code Phon e Number [facility] [address] [place] [address] (ABNORMAL) Glomerular filtration rate (GFR) (11/14/2018 9:37 AM OIL SEAL ASSEMBLER) athologist Signature GFR 39 (A) 11/14/2018 [facility] 9:56 AM [facility] 47 (A) 11/14/2018 [facility] Colombian GFR 9:56 AM [facility] Comment: GFR calculated from serum creatinine v alue Chronic Kidney Disease less than 60 mL/m in/1.73 m2 Kidney Failure less than 15 mL/min/1.73 m2 Note: effective 02/23/07 IDMS-Traceable MDRD Study Equation used. Specimen Anatomical Collection Method Collection Time Receive d Time (Source) Location / / Volume Laterality 11/14/2018 9:37 AM 9 9:37 OIL SEAL ASSEMBLER AM OIL SEAL ASSEMBLER Yesenia Sood APRN, MANAGER UNIVERSAL LAB BLOOD ORDERABLES Performing Organization Address City/State/ZIP Code Phon e Number [facility] [address] [place] [address] (ABNORMAL) Lipid panel (11/14/2018 9:37 AM OIL SEAL ASSEMBLER) athologist Signature Cholesterol 138 0 - 199 11/15/2018 [facility] mg/dL 1:30 PM [facility] Comment: Recommended by National Cholesterol Education Program (ATP III) -------- Cholesterol Ranges -------- <200 ? Desirable 200-239 ? Borderline high >=240 ? High Triglycerides 192 (A) 0 - 149 mg/dL 11/15/2018 1:30 PM [facility] Comment: -------- TRIG Ranges -------- <150 ?Normal 150-199 ? Borderline high 200-499 ? High >=500 ? Very high HDL 33 (A) 40 - 60 mg/dL 11/15/2018 1:30 PM [facility] Comment: -------- HDL Ranges -------- <40 ?Low 40-59 ?Normal >=60 ? Optimal LDL Calculated 67 0 - 99 mg/dL 11/15/2018 1:30 PM [facility] Comment: -------- LDL Ranges -------- <100 ? Optimal 100-129 ?Near optimal/above op timal 130-159 ?Borderline high 160-189 ?High >=190 ?Very high Specimen Anatomical Collection Method Collection Time Receive d Time (Source) Location / / Volume Laterality Blood (Blood, 11/14/2018 9:37 AM 11/15/19 19 Venous) OIL SEAL ASSEMBLER 12:52 PM OIL SEAL ASSEMBLER Yesenia Sood APRN, CNP LAB BLOOD ORDERABLES Performing Organization Address [facility] e Number [facility] [address] [place], [place] [id number] (ABNORMAL) Hemoglobin A1c (11/14/2018 9:37 AM OIL SEAL ASSEMBLER) Analysis Performed At Patho logist Time Signature Hemoglobin A1C 8.7 (H) 4.0 - 5.6 11/14/2018 [place] % A1C 1:17 PM OIL SEAL ASSEMBLER [facility] Comment: Reference Range 4.0-5.6% [...] (Blood, 11/14/2018 9:37 AM 11/14/19 19 Venous) OIL SEAL ASSEMBLER 12:13 PM OIL SEAL ASSEMBLER Yesenia Sood APRN, CNP LAB BLOOD ORDERABLES Performing Organization Address [facility] e Number [facility] [address] [place] [phone] (ABNORMAL) Basic metabolic panel (11/14/2018 9:37 AM OIL SEAL ASSEMBLER) P athologist Signature Sodium 143 135 - 145 11/14/2018 [facility] [place] mmol/L 9:56 AM OIL SEAL ASSEMBLER [place] Potassium 3.8 3.5 - 5.1 11/14/2018 [facility] mmol/L 9:56 AM OIL SEAL ASSEMBLER [place] Comment: . Chloride 103 98 - 107 mmol/L 11/14/2018 9:56 AM OIL SEAL ASSEMBLER [facility] [place] Comment: . CO2 29 22 - 29 mmol/L 11/14/2018 9:56 AM OIL SEAL ASSEMBLER [facility] [place] Comment: . Creatinine 1.4 (H) 0.4 - 1.2 mg/dL 11/14/2018 9:56 AM OIL SEAL ASSEMBLER [facility] [place] Comment: . BUN 20 5 - 25 mg/dL 11/14/2018 9:56 AM OIL SEAL ASSEMBLER [facility] [place] Comment: . Glucose 168 (H) 70 - 100 mg/dL 11/14/2018 9:56 AM OIL SEAL ASSEMBLER [facility] [place] Calcium, Total,S 9.5 8.4 - 10.2 mg/dL 11/14/2018 9:56 AM OIL SEAL ASSEMBLER [facility] [place] Comment: . Fasting? Yes 11/14/2018 9:44 AM OIL SEAL ASSEMBLER C CAN NON [place] Specimen Anatomical Collection Method Collection Time Receive d Time (Source) Location / / Volume Laterality Blood (Blood, 11/14/2018 9:37 AM 11/14/19 19 9:43 Venous) OIL SEAL ASSEMBLER AM OIL SEAL ASSEMBLER Yesenia Sood CRANIOLOGIST, MANAGER UNIVERSAL LAB BLOOD ORDERABLES Performing Organization Address City/State/ZIP Code Phon e Number [facility] [place] [address] [place] [address] (ABNORMAL) CBC Branch Off w/Diff (11/14/2018 9:37 AM OIL SEAL ASSEMBLER) [facility] gist Method Time Signature WBC 8.4 3.5 - 10.5 11/14/2018 [facility] K/uL 9:56 AM OIL SEAL ASSEMBLER [place] RBC 5.15 (H) 3.90 - 11/14/2018 [facility] 5.00 M/uL 9:56 AM OIL SEAL ASSEMBLER [place] Hemoglobin 14.8 12.0 - 11/14/2018 [facility] 15.5 g/dL 9:56 AM OIL SEAL ASSEMBLER [place] Hematocrit 43.4 35.0 - 11/14/2018 [facility] 44.0 % 9:56 AM OIL SEAL ASSEMBLER [place] Platelets 133 (L) 150 - 450 11/14/2018 [facility] K/uL 9:56 AM OIL SEAL ASSEMBLER [place] MCV 84.3 81.6 - 11/14/2018 [facility] 98.3 fL 9:56 AM OIL SEAL ASSEMBLER [place] MCH 28.7 26.0 - 11/14/2018 [facility] 32.0 pg 9:56 AM OIL SEAL ASSEMBLER [place] MCHC 34.1 32.0 - 11/14/2018 [facility] [place] 36.0 g/dL 9:56 AM OIL SEAL ASSEMBLER [place] RDW 12.2 11.9 - 11/14/2018 [facility] [place] 15.5 % 9:56 AM OIL SEAL ASSEMBLER [place] Lymphocytes % 15.3 (L) 18.0 - 11/14/2018 [facility] [place] 45.0 % 9:56 AM OIL SEAL ASSEMBLER [place] Mid-size Cells 6.2 3.3 - 10.1 11/14/2018 [facility] [place] % 9:56 AM OIL SEAL ASSEMBLER [place] Granulocytes/Flip 78.5 (H) 45.8 - 11/14/2018 [facility] [place] trophils 73.7 % 9:56 AM OIL SEAL ASSEMBLER [place] Lymphocytes 1.3 0.9 - 2.9 11/14/2018 [facility] [place] Absolute K/uL 9:56 AM OIL SEAL ASSEMBLER [place] MIDS Absolute 0.5 0.2 - 0.8 11/14/2018 [facility] [place] K/uL 9:56 AM OIL SEAL ASSEMBLER [place] Granulocytes/Flip 6.6 2.1 - 8.7 11/14/2018 [facility] [place] trophils K/uL 9:56 AM OIL SEAL ASSEMBLER [place] Absolute Specimen Anatomical Collection Method Collection Time Receive d Time (Source) Location / / Volume Laterality Blood (Blood, 11/14/2018 9:37 AM 11/14/19 19 9:43 Venous) OIL SEAL ASSEMBLER AM OIL SEAL ASSEMBLER Yesenia Sood APRN, MANAGER UNIVERSAL LAB BLOOD ORDERABLES Performing Organization Address City/State/ZIP Code Phon e Number [facility] GONZALO [place]STER [address] [place] [address] documented in this encounter Visit Diagnoses Diagnosis Thrombocytopenia (HCC) Unspecified thrombocytopenia Type 2 diabetes mellitus without complic ation, with long-term current use of insulin (HCC) Hyperlipoproteinemia Other and unspecified hyperlipidemia documented in this encounter Care Teams Practice Assistant Relationship Specialty Start Date End Date Yesenia Sood APRN, MANAGER UNIVERSAL PCP - General 05/17/18 06/17/[address] [place] [address] [place] [id number] documented as of this encounter
--- OUTSIDE RECORDS SUMMARY | 2022-09-14 10:08 | XMS_ITS | Encounter Summary ---
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 BP 142/80 pulse 67. CLEANER documented in this encounter Plan of Treatment Not on filedocumented as of this encounter Visit Diagnoses Not on filedocumented in this encounter Care Teams Edge Stainer Relationship Specialty Start Date End Date Yesenia Sood APRN, RN PROCEDURE PCP - General 05/17/18 06/17/20 [address] [place], [place] [address] documented as of this encounter
--- OUTSIDE RECORDS SUMMARY | 2022-09-14 10:08 | XMS_ITS | Encounter Summary ---
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 ANISM INSPECTOR documented in this encounter Plan of Treatment Not on filedocumented as of this encounter Visit Diagnoses Not on filedocumented in this encounter Care Teams Director Airport Operations Relationship Specialty Start Date End Date Yesenia Sood, ONLINE ADVERTISING DIRECTOR, ENGINEERING PATTERNMAKER PCP - General 05/17/18 06/17/20 [address] [facility] [place] [id number] documented as of this encounter
--- OUTSIDE RECORDS SUMMARY | 2022-09-14 10:08 | XMS_ITS | Encounter Summary ---
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 ANICAL DESIGN ENGINEER FACILITIES documented in this encounter Plan of Treatment Not on filedocumented as of this encounter Visit Diagnoses Not on filedocumented in this encounter Care Teams Experienced Truck Driver Relationship Specialty Start Date End Date Yesenia Sood APRN, REHABILITATION WORKER PCP - General 05/17/18 06/17/20 100 [facility] [address] documented as of this encounter
--- OUTSIDE RECORDS SUMMARY | 2022-09-14 10:08 | XMS_ITS | Encounter Summary ---
:[address] [facility] Address [address] [place] [address] Care Team Providers Name Role Phone Yesenia Sood APRN, MINESH Primary Care Provider [phone] Reason for Visit Reason Comments Medication Visit Encounter Details Date Type Department Care Team Description 11/14/2018 Office Visit [place] Yesenia Sood Type 2 diabetes mellitus wit hout complication, with long-term current use of insulin (HCC) (Primary Dx); [address] MT[place] CNP Insomnia, unspecified type; [place], [place] [address] Thrombocytopenia (HCC) [address] [place], [place] [phone] [address] Social History Tobacco Use Types Packs/Day Years [...] at Date Recorded 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 documented as of this encounter Last Filed Vital Signs Vital Sign Reading Time Taken Comments Blood Pressure 126/82 11/14/2018 9:02 AM SUPERVISOR COMPRESSED YEAST Pulse 67 11/14/2018 9:02 AM SUPERVISOR COMPRESSED YEAST Temperature 36.8 ??C (98.2 ??F) 11/14/2018 9:02 AM SUPERVISOR COMPRESSED YEAST Respiratory Rate 16 11/14/2018 9:02 AM SUPERVISOR COMPRESSED YEAST Oxygen Saturation 98% 11/14/2018 9:02 AM SUPERVISOR COMPRESSED YEAST Inhaled Oxygen Concentration - - Weight 101 kg (223 lb 12.3 oz) 11/14/2018 9:02 AM SUPERVISOR COMPRESSED YEAST Height 162.3 cm (5' 3.9) 11/14/2018 9:02 AM SUPERVISOR COMPRESSED YEAST Body Mass Index 38.53 11/14/2018 9:02 AM SUPERVISOR COMPRESSED YEAST documented in this encounter Patient Instructions Patient InstructionsChwhitney Sood APRN, CNP - 11/14/2018 8:40 AM SUPERVISOR COMPRESSED YEAST Shingrix, check with insurance No new medication changes now Will call you with your lab results RVISOR COMPRESSED YEAST documented in this encounter Progress Notes Yesenia [...] understands this planof care. Yesenia Sood APRN, FARMWORKER FRUIT RVISOR COMPRESSED YEAST documented in this encounter Plan of Treatment Not on filedocumented as of this encounter Results (ABNORMAL) Microalbumin/Creatinine Ratio (11/14/2018 9:44 AM SUPERVISOR COMPRESSED YEAST) Analysis Performed At Patho logist Time Signature Microalbumin,m 29.5 (H) 0.0 - 16.6 11/14/2018 [place] g/day mg/L 1:08 PM [facility] Comment: . Creatinine, Urine 154 mg/dL 11/14/2018 1:08 PM SUPERVISOR COMPRESSED YEAST [facility] Comment: No established reference range. Microalb/Creat Ratio 19 0 - 24 mg/g 11/14/2018 1:0 8 PM SUPERVISOR COMPRESSED YEAST [facility] Specimen Anatomical Collection Method Collection Time Receive d Time (Source) Location / / Volume Laterality Urine (Urine, 11/14/2018 9:44 AM 11/14/19 19 Clean Catch) SUPERVISOR COMPRESSED YEAST 12:13 PM SUPERVISOR COMPRESSED YEAST Yesenia Sood APRN, CNP LAB URINE ORDERABLES Performing Organization Address City/State/ZIP Code Phon e Number [facility] [address] [place] [address] (ABNORMAL) CBC Branch Off w/Diff (11/14/2018 9:37 AM SUPERVISOR COMPRESSED YEAST) Patholo gist Method Time Signature WBC 8.4 3.5 - 10.5 11/14/2018 [facility] K/uL 9:56 AM SUPERVISOR COMPRESSED YEAST [place] RBC 5.15 (H) 3.90 - 11/14/2018 [facility] 5.00 M/uL 9:56 AM SUPERVISOR COMPRESSED YEAST [place] Hemoglobin 14.8 12.0 - 11/14/2018 [facility] 15.5 g/dL 9:56 AM SUPERVISOR COMPRESSED YEAST [place] Hematocrit 43.4 35.0 - 11/14/2018 [facility] 44.0 % 9:56 AM SUPERVISOR COMPRESSED YEAST [place] Platelets 133 (L) 150 - 450 11/14/2018 [facility] K/uL 9:56 AM SUPERVISOR COMPRESSED YEAST [place] MCV 84.3 81.6 - 11/14/2018 [facility] 98.3 fL 9:56 AM SUPERVISOR COMPRESSED YEAST [place] MCH 28.7 26.0 - 11/14/2018 [facility] 32.0 pg 9:56 AM SUPERVISOR COMPRESSED YEAST [place] MCHC 34.1 32.0 - 11/14/2018 [facility] 36.0 g/dL 9:56 AM SUPERVISOR COMPRESSED YEAST [place] RDW 12.2 11.9 - 11/14/2018 [facility] 15.5 % 9:56 AM SUPERVISOR COMPRESSED YEAST [place] Lymphocytes % 15.3 (L) 18.0 - 11/14/2018 [facility] 45.0 % 9:56 AM SUPERVISOR COMPRESSED YEAST [place] Mid-size Cells 6.2 3.3 - 10.1 11/14/2018 [facility] % 9:56 AM SUPERVISOR COMPRESSED YEAST [place] Granulocytes/Flip 78.5 (H) 45.8 - 11/14/2018 [facility] trophils 73.7 % 9:56 AM SUPERVISOR COMPRESSED YEAST [place] Lymphocytes 1.3 0.9 - 2.9 11/14/2018 [facility] Absolute K/uL 9:56 AM SUPERVISOR COMPRESSED YEAST [place] MIDS Absolute 0.5 0.2 - 0.8 11/14/2018 [facility] K/uL 9:56 AM SUPERVISOR COMPRESSED YEAST [place] Granulocytes/Flip 6.6 2.1 - 8.7 11/14/2018 [facility] trophils K/uL 9:56 AM SUPERVISOR COMPRESSED YEAST [place] Absolute Specimen Anatomical Collection Method Collection Time Receive d Time (Source) Location / / Volume Laterality Blood (Blood, 11/14/2018 9:37 AM 11/14/19 19 9:43 Venous) SUPERVISOR COMPRESSED YEAST AM SUPERVISOR COMPRESSED YEAST Yesenia Sood APRN, FARMWORKER FRUIT LAB BLOOD ORDERABLES Performing Organization Address City/State/ZIP Code Phon e Number [facility] [place] [address] [place] [address] (ABNORMAL) Basic metabolic panel (11/14/2018 9:37 AM SUPERVISOR COMPRESSED YEAST) P athologist Signature Sodium 143 135 - 145 11/14/2018 [facility] [place] mmol/L 9:56 AM SUPERVISOR COMPRESSED YEAST [place] Potassium 3.8 3.5 - 5.1 11/14/2018 [facility] [place] mmol/L 9:56 AM SUPERVISOR COMPRESSED YEAST [place] Comment: . Chloride 103 98 - 107 mmol/L 11/14/2018 9:56 AM SUPERVISOR COMPRESSED YEAST [facility] [place] Comment: . CO2 29 22 - 29 mmol/L 11/14/2018 9:56 AM SUPERVISOR COMPRESSED YEAST [facility] [place] Comment: . Creatinine 1.4 (H) 0.4 - 1.2 mg/dL 11/14/2018 9:56 AM SUPERVISOR COMPRESSED YEAST [facility] [place] Comment: . BUN 20 5 - 25 mg/dL 11/14/2018 9:56 AM SUPERVISOR COMPRESSED YEAST [facility] [place] Comment: . Glucose 168 (H) 70 - 100 mg/dL 11/14/2018 9:56 AM SUPERVISOR COMPRESSED YEAST [facility] [place] Calcium, Total,S 9.5 8.4 - 10.2 mg/dL 11/14/2018 9:56 AM SUPERVISOR COMPRESSED YEAST [facility] [place] Comment: . Fasting? Yes 11/14/2018 9:44 AM SUPERVISOR COMPRESSED YEAST [facility] [place] Specimen Anatomical Collection Method Collection Time Receive d Time (Source) Location / / Volume Laterality Blood (Blood, 11/14/2018 9:37 AM 11/14/19 9:43 Venous) SUPERVISOR COMPRESSED YEAST AM SUPERVISOR COMPRESSED YEAST Yesenia Sood APRN, CNP LAB BLOOD ORDERABLES Performing Organization Address City/State/ZIP Code Phon e Number [facility] GONZALO BREWSTER [address] [place] [address] (ABNORMAL) Hemoglobin A1c (11/14/2018 9:37 AM SUPERVISOR COMPRESSED YEAST) Analysis Performed At Patho logist Time Signature Hemoglobin A1C 8.7 (H) 4.0 - 5.6 11/14/2018 [place] % A1C 1:17 PM [facility] Comment: Reference Range 4.0-5.6% [...] (Blood, 11/14/2018 9:37 AM 11/14/19 19 Venous) SUPERVISOR COMPRESSED YEAST 12:13 PM SUPERVISOR COMPRESSED YEAST Yesenia Sood APRN, MINESH LAB BLOOD ORDERABLES Performing Organization Address City/State/ZIP Code Phon e Number [facility] [address] [place] [address] (ABNORMAL) Lipid panel (11/14/2018 9:37 AM SUPERVISOR COMPRESSED YEAST) P athologist Signature Cholesterol 138 0 - 199 11/15/2018 [facility] mg/dL 1:30 PM [facility] Comment: Recommended by National Cholesterol Education Program (ATP III) -------- Cholesterol Ranges -------- <200 ? Desirable 200-239 ? Borderline high >=240 ? High Triglycerides 192 (A) 0 - 149 mg/dL 11/15/2018 1:30 PM [facility] Comment: -------- TRIG Ranges -------- <150 ?Normal 150-199 ? Borderline high 200-499 ? High >=500 ? Very high HDL 33 (A) 40 - 60 mg/dL 11/15/2018 1:30 PM [facility] Comment: -------- HDL Ranges -------- <40 ?Low 40-59 ?Normal >=60 ? Optimal LDL Calculated 67 0 - 99 mg/dL 11/15/2018 1:30 PM [facility] Comment: -------- LDL Ranges -------- <100 ? Optimal 100-129 ?Near optimal/above op timal 130-159 ?Borderline high 160-189 ?High >=190 ?Very high Specimen Anatomical Collection Method Collection Time Receive d Time (Source) Location / / Volume Laterality Blood (Blood, 11/14/2018 9:37 AM 11/15/19 19 Venous) SUPERVISOR COMPRESSED YEAST 12:52 PM SUPERVISOR COMPRESSED YEAST Yesenia Sood APRN, CNP LAB BLOOD ORDERABLES Performing Organization Address City/State/ZIP Code Phon e Number [facility] [address] [place] [address] documented in this encounter Visit Diagnoses Diagnosis Type 2 diabetes mellitus without complic ation, with long-term current use of insulin (HCC) - Primary Insomnia, unspecified type Thrombocytopenia (HCC) Unspecified thrombocytopenia documented in this encounter Care Teams Licensed Insurance Agent Relationship Specialty Start Date End Date Sood, Yesenia M, STACKER OPERATOR, FARMWORKER FRUIT PCP - General 05/17/18 06/17/20 [address], [place] [address] documented as of this encounter
--- OUTSIDE RECORDS SUMMARY | 2022-09-14 10:08 | XMS_ITS | Encounter Summary ---
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 NOMY TEACHER documented in this encounter Plan of Treatment Not on filedocumented as of this encounter Visit Diagnoses Not on filedocumented in this encounter Care Teams Shelter Supervisor Relationship Specialty Start Date End Date Yesenia Sood APRN, CNP PCP - General 05/17/18 06/17/[address] [place] [address] documented as of this encounter
--- OUTSIDE RECORDS SUMMARY | 2022-09-14 10:08 | XMS_ITS | Encounter Summary ---
:[address] 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 MACHINE TENDER Telephone Encounter - Francisca Mejia - 11/10/2018 9:00 AM CST Spoke with Pt about fasting labs and office visit with Alberto Sood, she will call back another day to make this appt. MACHINE TENDER Telephone Encounter - Yesenia Sood APRN, MINESH - 11/10/2018 8:48 AM WET MACHINE TENDER The orders have been signed, please contact the patient, and schedule. MACHINE TENDER Telephone Encounter - Lili Lucero RN - 11/09/2018 1:48 PM CST Patient is due for a visit with fasting labs in 11/29. Please sign orders and send to scheduling. MACHINE TENDER Telephone Encounter - Lili Lucero RN - 11/03/2018 12:53 PM CST Please call patient to schedule a nurse only blood pressure check as it was elevated at her last visit. MACHINE TENDER documented in this encounter Plan of Treatment Not on filedocumented as of this encounter Visit Diagnoses Diagnosis Type 2 diabetes mellitus without complic ation, with long-term current use of insulin (HCC) - Primary Hyperlipoproteinemia Other and unspecified hyperlipidemia documented in this encounter Care Teams Supervisor Liquefaction Relationship Specialty Start Date End Date Yesenia Sood APRN, MINESH PCP - General 05/17/18 06/17/20 100 [facility] [place] [id number] documented as of this encounter
--- OUTSIDE RECORDS SUMMARY | 2022-09-14 10:11 | XMS_ITS | Encounter Summary ---
:1960 Author Organization [facility] Address [address] [place] [address] Care Team Providers Name Role Phone Anabella Chow APRN C.N.PSukhi, D.N.P. Primary Care Provider Reason for Visit Physical Therapy (Routine) - Closed Specialty Diagnoses / Procedures Referred By Contact Refer red To Contact Diagnoses Pain Hip Left Anabella Chow APRN, [facility] Procedures PT Evaluate and treat C.N.P., D.N.P. [address] [place] [address] Referral ID Status Reason Start Date Expiration Date Visits Requ ested Visits Authorized [id number] Closed 05/26/2021 10/10/2021 1 1 Encounter Details Date Type Department Care Team Description 06/04/2021 Comprehensive Visit Department of Radha Chow APRN C.N.P., D.N.P. [address] [place] [phone] Pain Hip Left Rehabilitation Services Niurka Serrano P.T., D.P.T. in [address] [phone] Social History Tobacco Use Types Packs/Day Years [...] 06/26/2021 relatives? How often do you attend congregational or moravian services? Shelli t refused 06/26/2021 Do you belong to any clubs or organizations such as Patient refused 06/26/2021 congregational groups, unions, [employer] or athletic groups, or school groups? How [...] Therapy Outpatient Evaluation/Treatment SUBJECTIVE Patient's Name: Angeles Morales Referring Provider: Anabella Chow APRN, * Visit Diagnosis: 1. Pain Hip Left Reason for Referral: PT eval and treat Payor: [employer] / Plan: [employer] OPEN ACCESS / Product Type: PPO [...] to left hip in supine Access Code: [email or web address] Exercises ??? Supine Bridge - 1 x [...] D.P.T. Department of Rehabilitation Services in [address] [address] Dept: [phone] documented in this encounter Plan of Treatment Not on filedocumented as of this encounter Visit Diagnoses Diagnosis Pain Hip Left documented in this encounter Additional Health Concerns Assessment Noted Time PHQ-9 Depression Total Score: 1 05/26/2021 11:46 AM CD T documented as of this encounter Care Teams Consultant Education Relationship Specialty Start Date End Date Anabella Chow APRN, C.N.P., PCP - General Internal Medicine 04/1105/10/22 D.N.P. [address] [place] [address] documented as of this encounter
--- OUTSIDE RECORDS SUMMARY | 2022-09-14 10:11 | XMS_ITS | Encounter Summary ---
:1960 Author Organization [facility] Address [address] [place] [address] Care Team Providers Name Role Phone Elsewhere, Pcp Primary Care Provider Unavailable Encounter Details Date Type Department Care Team Description 06/17/2021 Orders Only [facility] Sherri Aguero APRN, [place] C.N.P., D.N.P. [phone] [place] [phone] (Wo rk) Social History Tobacco Use Types [...] 06/26/2021 relatives? How often do you attend latter day or congregational services? Patien t refused 06/26/2021 Do you belong to any clubs or organizations such as Patient refused 06/26/2021 latter day groups, unions, fraternal or athletic groups, or [...] place to sleep or slept in a penitentiary (including now)? Education Answer Date Recorded What [...] documented as of this encounter Care Teams Customer Order Clerk Relationship Specialty Start Date End Date Elsewhere, Pcp PCP - General Internal Medicine 05/11/22 documented as of this encounter
--- OUTSIDE RECORDS SUMMARY | 2022-09-14 10:11 | XMS_ITS | Encounter Summary ---
:1960 Author Organization [facility] Address [address] [place] [address] Care Team Providers Name Role Phone Elsewhere, Pcp Primary Care Provider Unavailable Encounter Details Date Type Department Care Team Description 07/17/2022 Clinical Communication Department of Anabella Chow, Internal Medicine in [facility] C.N.P.[place], [place] D.N.P. [address] [address] [phone] Social History Tobacco Use Types Packs/Day Years [...] How often do you attend restoration or mu-ism services? Patien t refused 06/26/2021 Do you [...] is established with another provider outside of [place]. She prefers not be be called anymore. [...] documented as of this encounter Care Teams Honey Liquefier Relationship Specialty Start Date End Date Elsewhere, Pcp PCP - General Internal Medicine 05/11/22 documented as of this encounter
--- OUTSIDE RECORDS SUMMARY | 2022-09-14 10:11 | XMS_ITS | Encounter Summary ---
:1960 Author Organization [facility] Address [address] [place] [address] Care Team Providers Name Role Phone Anabella Chow APRN C.N.PSukhi, D.N.P. Primary Care Provider Reason for Visit Reason Comments Medication Question Encounter Details Date Type Department Care Team Description 06/20/2021 Clinical Communication [facility] Antoine, Medic ation Question Pharmacy Ney Gregorio Pharm.D., [address] [place] [address] R.Ph. VD [address] [place] [phone] [place] [phone] Social History Tobacco Use Types Packs/Day Years [...] 06/26/2021 relatives? How often do you attend jewish or amish services? Patien t refused 06/26/2021 Do you belong to any clubs or organizations such as Patient refused 06/26/2021 jewish groups, unions, fraternal or athletic groups, or [...] - Anabella Chow APRN C.N.PSukhi, D.N.P. - 06/20/2021 12:11 PM CDT New RX sent for requested amount Telephone Encounter - Elizabeth Schultz Pharm.D., R.Ph. - 06/20/2021 11:34 AM CDT Angeles Kyle would like to fill 3 boxes of Lantus per fill, but the prescription is only written for one box per fill. Can you please issue a new prescription for 45 ml? Thank you, [facility] - [place] documented in this encounter Plan of Treatment Not on filedocumented as of this encounter Visit Diagnoses Not on filedocumented in this encounter Additional Health Concerns Assessment Noted Time PHQ-9 Depression Total Score: 1 05/26/2021 11:46 AM CD T documented as of this encounter Care Teams Can Technician Relationship Specialty Start Date End Date Anabella Chow APRN C.N.P., PCP - General Internal Medicine 04/1105/10/22 D.N.P. [address] [place] [address] documented as of this encounter
--- OUTSIDE RECORDS SUMMARY | 2022-09-14 10:11 | XMS_ITS | Encounter Summary ---
:1960 Author Organization [facility] Address [address] [place] [address] Care Team Providers Name Role Phone Elsewhere, Pcp Primary Care Provider Unavailable Reason for Visit Reason Comments consumer services consultant Review Encounter Details Date Type Department Care Team Description 05/11/2022 Clinical Department of ISAEL Mcclure Diabetes Re view Communication Internal Medicine Sonya Lopez in [facility] [phone] [place] [facility] [address] [place] [address] Social History Tobacco Use Types Packs/Day [...] 06/26/2021 relatives? How often do you attend holiness or jewish services? Patien t refused 06/26/2021 Do you belong to any clubs or organizations such as Patient refused 06/26/2021 holiness groups, unions, fraternal or athletic groups, or [...] or slept in a assisted (including now)? Education Answer Date Recorded What [...] female patient of Anabella Chow APRN, C.N.P., D.N.P. to discuss diabetes management. Goals for today's [...] Will follow-up with patient Message routed to [facility] to remove Anabella Chow DNP as PCP. [...] documented as of this encounter Care Teams Crystal Syrup Maker Relationship Specialty Start Date End Date Elsewhere, Pcp PCP - General Internal Medicine 05/11/22 documented as of this encounter
--- OUTSIDE RECORDS SUMMARY | 2022-09-14 10:11 | XMS_ITS | Encounter Summary ---
:1960 Author Organization [facility] Address [address] [place] [address] Care Team Providers Name Role Phone Elsewhere, Pcp Primary Care Provider Unavailable Reason for Visit Reason Comments Med Refill Encounter Details Date Type Department Care Team Description 07/07/2022 Refill Department of Internal Anabella Chow APRN, Med Refill Medicine in [place], C.N.P., D. N.P. [address] [address] [place] [address] [phone] Social History Tobacco Use Types Packs/Day Years [...] How often do you attend jainism or buddhist services? Patien t refused 06/26/2021 Do you [...] encounter Miscellaneous Notes Telephone Encounter - Linda Lewis L.P.NSukhi - 07/07/2022 1:35 PM CDT Called patient and she is being seen in [place] with Dr Mcclure Telephone Encounter - Emily [...] documented as of this encounter Care Teams Staff Nuclear Weapons Officer Relationship Specialty Start Date End Date Elsewhere, Pcp PCP - General Internal Medicine 05/11/22 documented as of this encounter
--- OUTSIDE RECORDS SUMMARY | 2022-09-14 10:11 | XMS_ITS | Encounter Summary ---
:1960 Author Organization [facility] Address [address] [place] [address] Care Team Providers Name Role Phone Anabella Chow APRN C.N.P., D.N.P. Primary Care Provider Encounter Details Date Type Department Care Team Description 07/23/2021 Clinical Communication Department of Leora Alatorre, Nutrition in [place], RDN, [address] [phone] Social History Tobacco Use Types Packs/Day Years [...] 06/26/2021 relatives? How often do you attend evangelical or restorationism services? Patien t refused 06/26/2021 Do you belong to any clubs or organizations such as Patient refused 06/26/2021 evangelical groups, unions, fraternal or athletic groups, or [...] Miscellaneous Notes Telephone Encounter - Leora Alatorre, BETH, CDE - 07/23/2021 2:14 PM CDT Called [...] elsewhere for her care - not a [facility]. She did not elaborate, but thanked me the help I gave her. documented in this encounter Plan of Treatment Not on filedocumented as of this encounter Visit Diagnoses Not on filedocumented in this encounter Additional Health Concerns Assessment Noted Time PHQ-9 Depression Total Score: 1 05/26/2021 11:46 AM CD T documented as of this encounter Care Teams Black And White Printer Operator Relationship Specialty Start Date End Date Anabella Chow APRN, C.N.P., PCP - General Internal Medicine 04/1105/10/22 D.N.P. [address] [place] [address] documented as of this encounter
--- OUTSIDE RECORDS SUMMARY | 2022-09-14 10:11 | XMS_ITS | Encounter Summary ---
:1960 Author Organization [facility] Address [address] [place] [address] Care Team Providers Name Role Phone Elsewhere, Pcp Primary Care Provider Unavailable Encounter Details Date Type Department Care Team Description 06/12/2021 Orders Only Department of Internal Anabella Chow APRN, Medicine in [place], C.N.P., D. N.P. [address] [address] [place] [address] [phone] Social History Tobacco Use Types Packs/Day Years [...] 06/26/2021 relatives? How often do you attend sikhism or lutheran services? Patien t refused 06/26/2021 Do you belong to any clubs or organizations such as Patient refused 06/26/2021 sikhism groups, unions, fraternal or athletic groups, or [...] documented as of this encounter Care Teams Research Agricultural Engineer Relationship Specialty Start Date End Date Elsewhere, Pcp PCP - General Internal Medicine 05/11/22 documented as of this encounter
--- OUTSIDE RECORDS SUMMARY | 2022-09-14 10:11 | XMS_ITS | Clinical Summary ---
:1960 Author Organization [facility] Address [address] [place] [address] Care Team Providers Name Role Phone Elsewhere, Pcp Primary Care Provider Unavailable Source Comments Patient records contain information from all sites at [facility]. For routine questions regarding patient records, call [phone] during business hours, M-F 8:00 AM - 5:00 PM Central Time. Record requests for emergency care only can be directed to [phone] at any time.[facility] Allergies Active Allergy Reactions Severity Noted Date [...] supplies (INPEN, FOR NOVOLOG,) injector pen loratadine Take 10 mg by 0 Activ e (CLARITIN) 10 mg mouth daily. tablet traZODone (DESYREL) Take 1 tablet 90 tablet 3 05/26/2021 Active 100 mg (100 mg total) tabletIndications: by mouth at Insomnia bedtime. insulin aspart Inject 7 Units 15 mL 3 05/26/2021 Active U-100 (NovoLOG under the skin 3 FlexPen) 100 (three) times a unit/mL (3 mL) day with meals. injectionIndication s: Diabetes Mellitus Type 2 Without Complication (HCC) glipiZIDE Take 1 tablet 180 tablet 3 05/26/2021 Acti ve (GLUCOTROL) 10 mg (10 mg total) by tablet mouth 2 (two) times a day before breakfast and dinner. SITagliptin Take 1 tablet 90 tablet 3 05/26/2021 Act nahomy (JANUVIA) 50 mg (50 mg total) by tablet mouth daily. amLODIPine Take 1 tablet (5 90 tablet 3 05/26/2021 A ctive (NORVASC) 5 mg mg total) by tablet mouth daily. atorvastatin Take 1 tablet 90 tablet 3 05/26/2021 Ac tive (LIPITOR) 10 mg (10 mg total) by tablet mouth daily. chlorthalidone Take 1 tablet 90 tablet 3 05/26/2021 Active (HYGROTON) 25 mg (25 mg total) by tablet mouth daily. metoprolol Take 1 tablet 90 tablet 3 05/26/2021 Acti ve succinate (25 mg total) by (TOPROL-XL) 25 mg mouth daily. 24 hr tablet metoprolol Take 1 tablet 90 tablet 3 05/26/2021 Acti ve succinate (50 mg total) by (TOPROL-XL) 50 mg mouth daily. 24 hr tablet insulin glargine Inject 42 Units 45 mL 3 06/20/2021 Active (Lantus Solostar under the skin U-100 Insulin) 100 as directed. unit/mL (3 mL) injection blood sugar USE DIRECTED 100 each 3 10/02/2020 A ctive diagnostic strips TO TEST TWO TIMES A DAY insulin glargine Inject 47 Units 45 mL 3 04/14/2022 Active 100 unit/mL (3 mL) under the skin injection every evening. traZODone (DESYREL) Take 2 tablets 180 tablet 3 04/14/2022 Active 50 mg tablet (100 mg total) by mouth daily. metoprolol TAKE 1 TABLET BY 90 tablet 3 04/14/2022 04/14/20 A ctive succinate MOUTH DAILY 23 (TOPROL-XL) 25 mg ALONG WITH 50 MG 24 hr tablet TABLET FOR A TOTAL DOSE OF 75 MG DAILY SITagliptin Take 1 tablet 90 tablet 3 04/14/2022 Act nahomy (JANUVIA) 50 mg (50 mg total) by tablet mouth daily. metoprolol Take 1 tablet 90 tablet 3 04/14/2022 Acti ve succinate (50 mg total) by (TOPROL-XL) 50 mg mouth daily. 24 hr tablet glipiZIDE Take 1 tablet 180 tablet 3 04/14/2022 Acti ve (GLUCOTROL) 10 mg (10 mg total) by tablet mouth 2 (two) times a day. atorvastatin Take 1 tablet 90 tablet 3 04/14/2022 Ac tive (LIPITOR) 10 mg (10 mg total) by tablet mouth every evening. amLODIPine Take 1 tablet (5 90 tablet 3 04/14/2022 A ctive (NORVASC) 5 mg mg total) by tablet mouth daily. chlorthalidone TAKE 1 TABLET BY 90 tablet 3 04/14/2022 0 Active (HYGROTON) 25 mg MOUTH DAILY 23 tablet insulin aspart Inject 12 Units 30 mL 3 03/31/2022 Active U-100 (NovoLOG under the skin 3 FlexPen) 100 (three) times a unit/mL (3 mL) day. injection blood-glucose Replace 1 each 3 07/27/2022 Activ e transmitter (We Heart It transmitter G6 Transmitter) every 90 days. device predniSONE Take 1 tablet 10 tablet 0 09/14/2022 09/19/20 Acti ve (DELTASONE) 20 mg (20 mg total) by 22 tablet mouth 2 (two) times a day for 5 days. azithromycin Take 2 tablets 6 tablet 0 09/14/2022 09/19/20 A ctive (ZITHROMAX) 250 mg (500 mg total) 22 tablet by mouth daily for 1 day, THEN 1 tablet (250 mg total) daily for 4 days. albuterol 90 Inhale 2 puffs 8.5 g 0 09/14/2022 A ctive mcg/actuation every 4 (four) inhaler to 6 (six) hours as needed for wheezing or shortness of breath for 30 days. codeine-guaiFENesin Take 10 mL by 236 mL 0 09/14/202209/21 Active (ROBITUSSIN-AC) mouth every 4 22 10-100 mg/5 mL (four) to 6 liquid (six) hours as needed for cold symptoms for up to 7 days. blood-glucose As directed 3 each 12 09/14/2022 Act nahomy sensor (Dexcom G6 Sensor) device blood-glucose CHANGE SENSOR 9 each 4 06/12/2021 09/14/20 D iscontinued sensor EVERY 10 DAYS 22 deviceIndications: Diabetes Mellitus Type 2 Without Complication (HCC) blood-glucose Change every 10 3 each 2 07/14/2022 09/14/20 Discontinued sensor (Dexcom G6 days. 22 Sensor) device Active Problems Problem Noted Date Thrombocytopenia 05/26/2021 Last Assessment & Plan: Formatting of th is note might be different from the original. Persistent mild thrombocytopenia for whi ch she saw Hematology in the past. [...] weight loss. Offered a referral to our passenger car conductor to review changes that could be made [...] 01/05/2017 Last Assessment & Plan: Formatting of is note might be different from the [...] Disease Stage 4 Glomerular Filtration R ate 15-04/10/2015 Last Assessment & Plan: Formatting of th [...] Specialty Care Team Description 07/17/2022 Clinical Communication [facility] Internal Radha Chow, Medicine [place], C.N.P., D.N.P. 07/07/2022 Refill [facility] Internal Anabella Chow Med Refill Medicine [place], C.N.P., D.N.P. 07/07/2022 Refill Community Internal Anabella Chow Med Refill Medicine RIGGING LOFT MECHANIC, C.N.P., D.N.P. from Last 3 Months Immunizations Name Administration [...] 06/26/2021 relatives? How often do you attend gnosticist or rastafarian services? Patien t refused 06/26/2021 Do you belong to any clubs or organizations such as Patient refused 06/26/2021 gnosticist groups, unions, fraternal or athletic groups, or [...] or the highest technical, or vocational p [facility] degree you have received? Sex Assigned at [...] history exists Depression Monitoring (PHQ-9) 09/25/2021 05/26/2021 Pneumococcal vaccine (0-64 years) 10/06/2021 02/08/2018, (3 [...] Screening 07/22/2026 Zoster Vaccines Completed 11/12/2020, 06/20/2020 COVID-19 Vaccine Completed 07/04/2022, 08/05/2021, 01/09/2021, Additional history exists Insurance Payer Benefit Plan / Subscriber ID Effective Phone Address T ype Group Dates [facility] [id number] 2017-Pres [phone] [address] PPO OPEN ACCESS ent [address] [place] [address] Care Teams Vending Enterprises Supervisor Relationship Specialty Start Date End Date Elsewhere, Pcp PCP - General Internal Medicine 05/11/22
--- OUTSIDE RECORDS SUMMARY | 2022-09-14 10:11 | XMS_ITS | Encounter Summary ---
:1960 Author Organization [facility] Address [address] [place] [address] Care Team Providers Name Role Phone Elsewhere, Pcp Primary Care Provider Unavailable Encounter Details Date Type Department Care Team Description 04/14/2022 Orders Only [facility] Yesenia Sood, [place] C.N.P. [address] [place] [address] [address] [place] [address] [phone] Social History Tobacco Use Types Packs/Day Years [...] 06/26/2021 relatives? How often do you attend sabianist or baptist services? Purvien t refused 06/26/2021 Do you belong to any clubs or organizations such as Patient refused 06/26/2021 sabianist groups, unions, fraternal or athletic groups, or [...] documented as of this encounter Care Teams Immunology Teacher Relationship Specialty Start Date End Date Elsewhere, Pcp PCP - General Internal Medicine 05/11/22 documented as of this encounter
--- OUTSIDE RECORDS SUMMARY | 2022-09-14 10:11 | XMS_ITS | Encounter Summary ---
:1960 Author Organization [facility] Address [address] [place] [address] Care Team Providers Name Role Phone Anabella Chow APRN C.N.PSukhi, D.N.P. Primary Care Provider Reason for Visit Reason Comments Diabetes Quality Care Review Encounter Details Date Type Department Care Team Description 07/17/2021 Clinical Communication Department of Anabella Chow (Quality Internal Medicine TYRONE Harrison, Care Revie w) in [place], C.N.P., D.N.P. [address] [phone] Social History Tobacco Use [...] How often do you attend bahai or baptist services? Patien t refused 06/26/2021 [...] documented as of this encounter Care Teams Knockdown Worker Relationship Specialty Start Date End Date Anabella Chow APRN, C.N.P., PCP - General Internal Medicine 04/1105/10/22 D.N.P. [address] [place] [address] documented as of this encounter
--- OUTSIDE RECORDS SUMMARY | 2022-09-14 10:11 | XMS_ITS | Encounter Summary ---
:1960 Author Organization [facility] Address [address] [place] [address] Care Team Providers Name Role Phone Anabella Chow APRN C.N.PSukhi, D.N.P. Primary Care Provider Reason for Visit Physical Therapy (Routine) - Canceled Specialty Diagnoses / Procedures Referred By Contact Refer red To Contact Diagnoses Pain Hip Left Anabella Chow APRN, [facility] Procedures PT Ongoing treatment C.N.P., D.N.P. [address] [place] [address] Referral ID Status Reason Start Date Expiration Date Visits V isits Requested Authorized [id number] Canceled 06/04/2021 10/10/2021 99 99 Encounter Details Date Type Department Care Team Description 06/11/2021 Clinical Support Department of Anabella Chow APRN C.N.P., D.N.P. [address] [place] [address] Pain Hip Left Rehabilitation Services Niurka Serrano P.T., D.P.T. in [address] [phone] Social History Tobacco Use Types Packs/Day Years [...] How often do you attend gnosticist or yarsanism services? Patilaurence t refused 06/26/2021 Do you belong to any clubs or organizations such as Patient refused 06/26/2021 gnosticist groups, unions, fraDuPont or athletic groups, or school groups? How [...] or slept in a longterm (including now)? Education Answer Date Recorded What is the highest level of school Associate degree: milan ronn, 04/02/2019 you have completed or the highest [...] for Referral: PT eval and treat Payor: RingMD / Plan: RingMD OPEN ACCESS / Product Type: PPO / [...] to left hip in supine Access Code: [email or web address] Exercises ?? Seated hamstring stretch - 1 [...] P.T., D.P.T. Department of Rehabilitation Services in [address] [address] Dept: [phone] DISCHARGE SUMMARY DISCHARGE STATUS STATUS OF GOALS: [...] documented as of this encounter Care Teams Broadcast Operations Director Relationship Specialty Start Date End Date Anabella Chow APRN, C.N.P., PCP - General Internal Medicine 04/1105/10/22 D.N.PSukhi [address] [place] [phone] documented as of this encounter
--- OUTSIDE RECORDS SUMMARY | 2022-09-14 10:11 | XMS_ITS | Encounter Summary ---
:1960 Author Organization [facility] Address [address] [place] [address] Care Team Providers Name Role Phone Anabella Chow APRN, C.N.PSukhi, D.N.P. Primary Care Provider Reason for Referral Outpatient (Routine) - Closed Specialty Diagnoses / Procedures Referred By Contact Refer red To Contact Diagnoses Screening Mammogram Average Risk Patient Anabella Chow APRN, [facility] Region Procedures BI Breast Screening Bilateral with Tomosynthesis C.N.P., D.N.P. [address] [place] [address] Referral ID Status Reason Start Date Expiration Date Visits Requ ested Visits Authorized [id number] Closed 05/26/2021 05/26/2022 1 1 Reason for Visit Outpatient (Routine) - Closed Specialty Diagnoses / Procedures Referred By Contact Refer red To Contact Diagnoses Screening Mammogram Average Risk Patient Anabella Chow APRN, [facility] [place] Region Procedures BI Breast Screening Bilateral with Tomosynthesis C.N.P., D.N.P. [address] [place] [address] Referral ID Status Reason Start Date Expiration Date Visits Requ ested Visits Authorized [id number] Closed 05/26/2021 05/26/2022 1 1 Encounter Details Date Type Department Care Team Description 05/27/2021 Hospital Encounter Department of Anabella Chow Screen ing Mammogram Radiology in Gonzalo Harrison APRN, C.N.P., Aver age Risk Patient [place], [place] Libby[place].P. [address] [place] [phone] Social History Tobacco Use Types Packs/Day Years [...] 06/26/2021 relatives? How often do you attend confucianism or tenriism services? Patien t refused 06/26/2021 Do you belong to any clubs or organizations such as Patient refused 06/26/2021 confucianism groups, unions, fraternal or athletic groups, or [...] documented as of this encounter Care Teams Application Systems Administrator Relationship Specialty Start Date End Date Anabella Chow APRN, C.N.P., PCP - General Internal Medicine 04/1105/10/22 D.N.P. [address] [place] [address] documented as of this encounter
--- OUTSIDE RECORDS SUMMARY | 2022-09-14 10:11 | XMS_ITS | Encounter Summary ---
:1960 Author Organization [facility] Address [address] [place] [address] Care Team Providers Name Role Phone Anabella Chow APRN C.N.PSukhi, D.N.P. Primary Care Provider Reason for Visit Reason Comments Diabetes Rx for CGM Encounter Details Date Type Department Care Team Description 06/12/2021 Clinical Communication Department of Anabella Chow (Rx for Internal Medicine TYRONE Harrison, CGM) in [place], C.N.PSukhi, D.N.P. [address] [address] Social History Tobacco Use [...] How often do you attend confucianist or yarsani services? Patien t refused 06/26/2021 [...] documented as of this encounter Care Teams Natural Gas Inspector Relationship Specialty Start Date End Date Anabella Chow APRN C.N.P., PCP - General Internal Medicine 04/1105/10/22 D.N.P. [address] [place] [address] documented as of this encounter
--- OUTSIDE RECORDS SUMMARY | 2022-09-14 10:11 | XMS_ITS | Encounter Summary ---
:1960 Author Organization [facility] Address [address] [place] [address] Care Team Providers Name Role Phone Elsewhere, Pcp Primary Care Provider Unavailable Encounter Details Date Type Department Care Team Description 03/31/2022 Orders Only [facility] Yesenia Sood, [place] C.N.P. [address] [place] [address] [address] [place] [phone] [phone] Social History Tobacco Use Types Packs/Day Years [...] How often do you attend restoration or buddhist services? Purvien t refused 06/26/2021 Do you [...] documented as of this encounter Care Teams Acetylene Torch Solderer Relationship Specialty Start Date End Date Elsewhere, Pcp PCP - General Internal Medicine 05/11/22 documented as of this encounter
--- OUTSIDE RECORDS SUMMARY | 2022-09-14 10:11 | XMS_ITS | Encounter Summary ---
:1960 Author Organization [facility] Address [address] [place] [address] Care Team Providers Name Role Phone Anabella Chow APRN C.N.PSukhi, D.N.P. Primary Care Provider Reason for Visit Reason Comments Gynecologic Exam Outpatient (Routine) - Closed Specialty Diagnoses / Procedures Referred By Contact Refer red To Contact Community Internal Diagnoses Atypical Squamous Cell Uncertain Significance Personal History Anabella Chow, [facility] [place] [facility] Medicine TYRONE C.N.P., D.N.P. [address] [place] [address] Referral ID Status Reason Start Date Expiration Date Visits Requ ested Visits Authorized [id number] Closed 05/26/2021 05/26/2022 1 1 Encounter Details Date Type Department Care Team Description 06/30/2021 Office Visit Department of Anabella Chow, Pap Smear Examination (Primary Dx); Internal Medicine in [place], C.N.P., Atypic al Squamous Cell Uncertain Significance Personal History; [place], [place] D.N.P. Diabetes Mellitus Type 2 Without Complic ation (HCC); [address] [facility] Hypertensive Chronic Kidney Disease (CKD ) Stage 3b Glomerular Filtration Rate (GFR) 30 To 44 (HCC); [facility] Pain Hip Left [phone] Social History [...] often do you attend roman catholic or worship services? Patien t refused 06/26/2021 Do you [...] or the highest technical, or vocational p Devtap degree you have received? Sex Assigned at [...] who presents for evaluation of Gynecologic Exam. Renewals Specialist history: Menstrual status: Post menopausal Last menstrual [...] mouth daily. ??? blood-glucose meter,continuous (Dexcom G6 Adult Education Manager) misc 1 each continuously. ??? blood-glucose sensor [...] flash glucose scanning reader (FreeStyle Suze 2 [place]) misc 1 each continuously. (Patient not taking: [...] Result Encounter Note - Anabella Chow APRN, C.N.P., D.N.P. - 07/04/2021 2:21 PM CDT Portal [...] Anabella Chow APRN C.N.P., D.N.P. - 06/30/2021 4:48 PM CDTAssociated [...] was ordered in the context of a [facility] WATER RESOURCES PROGRAM DIRECTOR Cytology case; this result should be int erpreted within the context of the WATER RESOURCES PROGRAM DIRECTOR cytology report. Specimen Anatomical Collection Method Collection Time Receive d Time (Source) Location / / Volume Laterality Varies 06/30/2021 11:21 07/01/2021 9:40 AM CDT AM CDT Willard Prasad APRN.N.P., D.N.P. LAB MICROBIOLOGY - GENERAL ORDERABLES Performing Organization Address City/State/ZIP Code Phon e Number [facility] - [address] [place] [phone] [facility] [address] [facility] [address] ThinPrep w/HPV Co-Test Screen (06/30/2021 11:21 AM CDT) Component Value Ref Test Analysis [facility]formed [facility] Range Method Time At Signature 07/04/2021 ECLR 1:35 PM CDT Disclaimer High risk HPV testing, Real-Time Polymerase Chain Reac tion 07/04/2021 ECLR (PCR) was performed on the liquid-based cytology specimen 1:35 PM at T [place], [place]. Report BROOKE Borden(ASCP) 07/04/2021 E CLR [...] Organization Address City/State/ZIP Code Phon e Number [facility]- [address] [place] [address] [phone] [facility] [place] [place] [address] System in [address] documented in this encounter Visit Diagnoses [...] documented as of this encounter Care Teams Solar Installation Crew Supervisor Relationship Specialty Start Date End Date Anabella Chow APRN, C.N.P., PCP - General Internal Medicine 04/1105/10/22 D.N.P. [address] [place] [phone] documented as of this encounter
--- OUTSIDE RECORDS SUMMARY | 2022-09-14 10:11 | XMS_ITS | Encounter Summary ---
:1960 Author Organization [facility] Address [address] [place] [address] Care Team Providers Name Role Phone Elsewhere, Pcp Primary Care Provider Unavailable Reason for Visit Reason Comments Med Refill Encounter Details Date Type Department Care Team Description 07/07/2022 Refill Department of Internal Anabella Chow APRN, Med Refill Medicine in [place], C.N.P., D. N.P. [address] [address] [place] [address] [phone] Social History Tobacco Use Types Packs/Day Years [...] How often do you attend hindu or alevism services? Patien t refused 06/26/2021 Do you [...] or slept in a halfway (including now)? Education Answer Date Recorded What is the highest level of school Associate degree: milan brody, 04/02/2019 you have completed or the highest technical, or vocational p brittani degree you have received? Sex Assigned at Date Recorded Not on file documented as of this encounter Miscellaneous Notes Telephone Encounter - Anabella Chow APRN, C.N.P., D.N.PSukhi - 07/07/2022 3:05 PM CDT Patient has [...] documented as of this encounter Care Teams Rn Community Health Relationship Specialty Start Date End Date Elsewhere, Pcp PCP - General Internal Medicine 05/11/22 documented as of this encounter
--- OUTSIDE RECORDS SUMMARY | 2022-09-14 10:11 | XMS_ITS | Encounter Summary ---
:1960 Author Organization [facility] Address [address] [place] [address] Care Team Providers Name Role Phone Anabella Chow APRN C.N.PSukhi, D.N.P. Primary Care Provider Reason for Visit Reason Comments Medication Problem Encounter Details Date Type Department Care Team Description 06/12/2021 Clinical Communication [facility] Antoine Medic ation Problem Pharmacy Ney Gregorio Pharm.D., [address] [place] [address] R.Ph. VD [address] [place] [phone] [place] [phone] Social History Tobacco Use Types Packs/Day Years [...] 06/26/2021 relatives? How often do you attend restorationist or moravian services? Patien t refused 06/26/2021 Do you belong to any clubs or organizations such as Patient refused 06/26/2021 restorationist groups, unions, fraternal or athletic groups, or [...] or slept in a fdc (including now)? Education Answer Date Recorded What is the highest level of school Associate degree: milan brody, 04/02/2019 you have completed or the highest technical, or vocational p andreram degree you have received? Sex Assigned at Date Recorded Not on file documented as of this encounter Miscellaneous Notes Telephone Encounter - Anabella Chow APRN C.N.PSukhi, D.N.P. - 06/17/2021 2:33 PM CDT [...] day or Suze 2 product? Thank you, [facility] - [place] documented in this encounter Plan of Treatment Not on filedocumented as of this encounter Visit Diagnoses Diagnosis Diabetes Mellitus Type 2 Without Complic ation (HCC) - Primary documented in this encounter Additional Health Concerns Assessment Noted Time PHQ-9 Depression Total Score: 1 05/26/2021 11:46 AM CD T documented as of this encounter Care Teams Tube Builder Airplane Relationship Specialty Start Date End Date Anabella Chow APRN, C.N.P., PCP - General Internal Medicine 04/1105/10/22 D.N.P. [address] [address] documented as of this encounter
--- OUTSIDE RECORDS SUMMARY | 2022-09-14 10:11 | XMS_ITS | Encounter Summary ---
:1960 Author Organization [facility] Address [address] [place] [address] Care Team Providers Name Role Phone Anabella Chow APRN, C.N.P., D.N.P. Primary Care Provider Encounter Details Date Type Department Care Team Description 06/12/2021 Clinical Support Department of Leora Alatorre Diabete s Mellitus Nutrition in [facility] RDN, CDE Type 2 [place], [place] [address] [place] [address] Complication (HCC) [address] [place] [phone] Social History Tobacco Use Types Packs/Day Years [...] How often do you attend restoration or yarsanism services? Patien t refused 06/26/2021 [...] as of this encounter Care Teams Can Vacuum Tester Relationship Specialty Start Date End Date Anabella Chow APRN, C.N.P., PCP - General Internal Medicine 04/1105/10/22 D.N.P. [address] [address] documented as of this encounter
--- OUTSIDE RECORDS SUMMARY | 2022-09-14 10:11 | XMS_ITS | Encounter Summary ---
:1960 Author Organization [facility] Address [address] [place] [address] Care Team Providers Name Role Phone Anabella Chow APRN C.N.PSukhi, D.N.P. Primary Care Provider Reason for Visit Reason Comments Diabetes Quality Care Review Encounter Details Date Type Department Care Team Description 06/17/2021 Clinical Communication Department of Anabella Chow (Quality Internal Medicine TYRONE Harrison, Care Revie w) in [place], C.N.P., D.N.P. [address] [address] Social History Tobacco Use [...] How often do you attend restoration or jehovah's witness services? Patien t refused 06/26/2021 Do you [...] documented as of this encounter Care Teams Protozoologist Relationship Specialty Start Date End Date Anabella Chow APRN, C.N.P., PCP - General Internal Medicine 04/1105/10/22 D.N.P. [address] [place] [address] documented as of this encounter
--- OUTSIDE RECORDS SUMMARY | 2022-09-14 10:11 | XMS_ITS | Encounter Summary ---
:1960 Author Organization [facility] Address [address] [place] [address] Care Team Providers Name Role Phone Anabella Chow APRN, C.N.P., D.N.P. Primary Care Provider Encounter Details Date Type Department Care Team Description 02/24/2022 Orders Only [facility]NT Anabella Chow APRN, C.N.P., D.N.P. [address] [place], [place] [address] (Wo rk) Social History [...] How often do you attend congregational or synagogue services? Patien t refused 06/26/2021 Do you belong to any clubs or organizations such as Patient refused 06/26/2021 congregational groups, unions, fraternal or athletic groups, or [...] documented as of this encounter Care Teams Top Lifter Relationship Specialty Start Date End Date Anabella Chow APRN, C.N.P., PCP - General Internal Medicine 04/1105/10/22 D.N.P. [address] [place] [address] documented as of this encounter
--- OUTSIDE RECORDS SUMMARY | 2022-09-14 10:12 | XMS_ITS | Encounter Summary ---
:1960 Author Organization [facility] Address [address] [place] [address] Care Team Providers Name Role Phone Unavailable Primary Care Provider Unavailable Encounter Details Date Type Department Care Team Description 02/08/2018 Hospital Encounter Department of Yesenia Sood [facility] [place], [place] [address] [place] [address] [place], [place] [phone] [address] (Work) [phone] Social History Tobacco Use Types Packs/Day Years [...] How often do you attend mormonism or worship services? Patien t refused 06/26/2021 [...] place to sleep or slept in a detention (including now)? Sex Assigned at Date Recorded [...] BILATERAL Current study was evaluated with a Investor's Circleu iPeen Aided Detection (CAD) system. INDICATION: ??Screening mammogram. COMPARISON: ??Prior exams were available for comparison. DENSITY: ??c. The breast(s) are heteroge neously dense, which may obscure small masses. FINDINGS: ??No mammographic findings of malignancy. Procedure Note Dontrell Guo M.D. - 02/08/2018Formatt ing of this note might be different from the original. EXAM: BI BREAST SCREENING BILATERAL Current study was evaluated with a Investor's Circleu iPeen Aided Detection (CAD) system. INDICATION: Screening mammogram. [...]
--- OUTSIDE RECORDS SUMMARY | 2022-09-14 10:12 | XMS_ITS | Encounter Summary ---
:1960 Author Organization [facility] Address [address] [place] [address] Care Team Providers Name Role Phone Unavailable Primary Care Provider Unavailable Reason for Visit Physical Therapy (Routine) - Closed Specialty Diagnoses / Procedures Referred By Contact Refer red To Contact Diagnoses Herniated Disc Lumbar Yandel Boswell M.D. [facility] Procedures PT Evaluate and treat [address] [place] [address] Referral ID Status Reason Start Date Expiration Date Visits Requ ested Visits Authorized [id number] Closed 04/01/2020 10/10/2020 1 1 Encounter Details Date Type Department Care Team Description 04/08/2020 Comprehensive Visit Department of Aren Boswell M.D. [address] [place] [address] Herniated Disc Rehabilitation Niurka Serrano PSukhiT., D.P.T. Lumbar Services in [address] [phone] Social History Tobacco Use Types Packs/Day Years [...] do you attend congregational or synagogue services? Shelli machuca refused 06/26/2021 Do you [...] Consult Notes Niurka Serrano P.T., D.P.T. - 04/08/2020 10:30 AM CDT Physical Therapy Outpatient Evaluation/Treatment By co-signing this note, the provider certifies the therapy being provided to this patient is reasonable and necessary for the diagnosis or treatment of this patient. SUBJECTIVE Patient's Name: Angeles Morales Referring Provider: Yandel Boswell M.D. Visit Diagnosis: 1. Herniated Disc Lumbar Reason for Referral: PT eval and treat Onset Date: 03/29/20 Payor: 9GAG / Plan: Panna ACCESS / Product Type: PPO / SchemaLogic Visit Count: 1 PERTINENT MEDICAL / SURGICAL [...] PROM (Left/Right): Flexion: 120/120 ER: 25/25 IR: 25/25 Posture: Rounded shoulders, forward head Special Test (Left/Right): SLR: -/- TREATMENT Treatment today consisted of: Access Code: [email or web address] Exercises ??? Prone Press Up on Elbows [...] P.T., D.P.T. Department of Rehabilitation Services in [address] [address] Dept: [phone] documented in this encounter Plan of Treatment Not on filedocumented as of this encounter Visit Diagnoses Diagnosis Herniated Disc Lumbar documented in this encounter
--- OUTSIDE RECORDS SUMMARY | 2022-09-14 10:12 | XMS_ITS | Encounter Summary ---
:1960 Author Organization [facility] Address [address] [place] [address] Care Team Providers Name Role Phone Unavailable Primary Care Provider Unavailable Encounter Details Date Type Department Care Team Description 02/09/2019 Hospital Encounter Department of Yesenia Sood [facility] [place], [place] [address] [address] [place], [place] [phone] [address] (Work) [phone] Social History Tobacco Use Types Packs/Day Years [...] 06/26/2021 relatives? How often do you attend samaritan or anglican services? Patien t refused 06/26/2021 Do you belong to any clubs or organizations such as Patient refused 06/26/2021 samaritan groups, unions, fraternal or athletic groups, or [...] slept in a long term (including now)? Sex Assigned at Date Recorded [...] Imaging RST LOS, Breast Imaging ARZ LOS, [address] Bilateral Mammography Imaging FLA LOS Specimen [...]
--- OUTSIDE RECORDS SUMMARY | 2022-09-14 10:12 | XMS_ITS | Encounter Summary ---
:1960 Author Organization [facility] Address [address] [place] [address] Care Team Providers Name Role Phone Elsewhere, Pcp Primary Care Provider Unavailable Encounter Details Date Type Department Care Team Description 07/12/2020 Clinical Communication Department of [facility], Medicine, [place] TYRONE C.N.PSukhi, Clinic, in [place] [address] [phone] Social History Tobacco Use Types Packs/Day Years [...] How often do you attend holiness or spiritism services? Patien t refused 06/26/2021 [...] on filedocumented in this encounter Care Teams Department Supervisor Relationship Specialty Start Date End Date Elsewhere, Pcp PCP - General Family Medicine 07/12/20 05/05/21 documented as of this encounter
--- OUTSIDE RECORDS SUMMARY | 2022-09-14 10:12 | XMS_ITS | Encounter Summary ---
:1960 Author Organization [facility] Address [address] [place] [address] Care Team Providers Name Role Phone Unavailable Primary Care Provider Unavailable Encounter Details Date Type Department Care Team Description 04/06/2019 Clinical Communication Division of Hematology [place] in [facility] dominik Araujo [address] [facility] [address] [place] [address] [phone] Social History Tobacco Use Types Packs/Day Years [...] How often do you attend restoration or denominational services? Patien t refused 06/26/2021 [...]
--- OUTSIDE RECORDS SUMMARY | 2022-09-14 10:12 | XMS_ITS | Encounter Summary ---
:1960 Author Organization [facility] Address [address] [place] [address] Care Team Providers Name Role Phone Unavailable Primary Care Provider Unavailable Reason for Visit Physical Therapy (Routine) - Canceled Specialty Diagnoses / Procedures Referred By Contact Refer red To Contact Diagnoses Herniated Disc Lumbar Yandel Boswell M.D. [facility] Procedures PT Ongoing treatment [address] [place] [address] Referral ID Status Reason Start Date Expiration Date Visits V isits Requested Authorized [id number] Canceled 04/08/2020 10/10/2020 99 99 Encounter Details Date Type Department Care Team Description 05/28/2020 Clinical Support Department of Yandel Boswell M.D. [address] [place] [address] Herniated Disc Rehabilitation Niurka Serrano PSukhiT., D.P.T. Lumbar Services in [address] [phone] Social History Tobacco Use Types Packs/Day Years [...] 06/26/2021 relatives? How often do you attend methodist or christian services? Shelli machuca refused 06/26/2021 Do you belong to any clubs or organizations such as Patient refused 06/26/2021 methodist groups, unions, fraternal or athletic groups, or [...] Progress Notes Niurka Serrano P.T., D.P.T. - 05/28/2020 9:00 AM CDT Physical Therapy Outpatient Treatment Note SUBJECTIVE Patient's Name: Angeles Morales Referring Provider: Yandel Boswell M.D. Visit Diagnosis: 1. Herniated Disc Lumbar Reason for Referral: PT eval and treat Onset Date: 03/29/20 Payor: AgentPiggy / Plan: Agent[employer]iggy OPEN ACCESS / Product Type: PPO / [...] bridging - patient fatigued quickly Access Code: [email or web address] Exercises ??? Supine Bridge with Heels on Vietnamese Ball and Knees Bent - 10 reps - 3 sets - 1x daily - 7x weekly ??? Bridge with Heels on Vietnamese Ball - 10 reps - 3 sets [...] P.T., D.P.T. Department of Rehabilitation Services in [address] [address] Dept: [phone] documented in this encounter Plan of Treatment Not on filedocumented as of this encounter Visit Diagnoses Diagnosis Herniated Disc Lumbar documented in this encounter
--- OUTSIDE RECORDS SUMMARY | 2022-09-14 10:12 | XMS_ITS | Encounter Summary ---
:1960 Author Organization [facility] Address [address] [place] [address] Care Team Providers Name Role Phone Elsewhere, Pcp Primary Care Provider Unavailable Reason for Referral Outpatient (Routine) - Closed Specialty Diagnoses / Procedures Referred By Contact Refer red To Contact Hematology Diagnoses Thrombocytopenia (HCC) Yesenia Sood, [facility] C.N.P. [address] [place] [address] Referral ID Status Reason Start Date Expiration Date Visits Requ ested Visits Authorized [id number] Closed 02/22/2019 02/22/2020 1 1 Encounter Details Date Type Department Care Team Description 02/22/2019 [facility] Barrie, Thromboc ytopenia (HCC) [facility] Yesenia Valerio, (Primary Dx ) [facility] C.N.P. [address] [place] [address] [phone] Social History Tobacco Use Types Packs/Day Years [...] How often do you attend sikh or oriental orthodox services? Shelli machuca refused 06/26/2021 Do you [...] Name Type Priority Associated Diagnoses Order S seniadunicki Hematology Referral Outpatient Routine Thrombocytopenia (HCC ) Expected: Referral 02/22/2019 (Approximate), Expires: 02/22/2022 documented as of this encounter Visit Diagnoses Diagnosis Thrombocytopenia (HCC) - Primary documented in this encounter Care Teams Entertainment Musician Relationship Specialty Start Date End Date Elsewhere, Pcp PCP - General Internal Medicine 05/11/22 documented as of this encounter
--- OUTSIDE RECORDS SUMMARY | 2022-09-14 10:12 | XMS_ITS | Encounter Summary ---
:1960 Author Organization [facility] Address [address] [place] [address] Care Team Providers Name Role Phone Unavailable Primary Care Provider Unavailable Reason for Visit Appointment Request (Routine) - Closed Specialty Diagnoses / Procedures Referred By Contact Refer red To Contact Nephrology and Karmen Naranjo Hypertension Gayle [address] [place] [address] Referral ID Status Reason Start Date Expiration Date Visits Requ ested Visits Authorized [id number] Closed 03/29/2020 03/29/2021 1 1 Encounter Details Date Type Department Care Team Description 04/10/2020 External Outreach Division of Rafael, Ashwin Ki dney Disease Stage 3 Glomerular Filtration Rate 30 To 59 (HCC) (Primary Dx); Nephrology and Reza Lamar Jr., Hypertension And Chronic Kidney Disease Stage 1 To 4; Hypertension in [place]. Diabetes Mellitus Type 2 (HCC) [place], [place] [address] [place] [phone] [phone] Social History Tobacco Use Types Packs/Day Years [...] 06/26/2021 relatives? How often do you attend christian or mu-ism services? Shelli machuca refused 06/26/2021 Do you belong to any clubs or organizations such as Patient refused 06/26/2021 christian groups, unions, fraternal or athletic groups, or [...] note under document viewer tab for the [facility] [place] outreach visit from this date. documented in this encounter Plan of Treatment Not on filedocumented as of this encounter Visit Diagnoses Diagnosis Chronic Kidney Disease Stage 3 Glomerula r Filtration Rate 30 To 59 (HCC) - Primary Hypertension And Chronic Kidney Disease Stage 1 To 4 Diabetes Mellitus Type 2 (HCC) documented in this encounter
--- OUTSIDE RECORDS SUMMARY | 2022-09-14 10:12 | XMS_ITS | Encounter Summary ---
:1960 Author Organization [facility] Address [address] [place] [address] Care Team Providers Name Role Phone Elsewhere, Pcp Primary Care Provider Unavailable Encounter Details Date Type Department Care Team Description 01/09/2021 Orders Only RST PCP [facility] Hudson Ochoa Jr., M.D. [address] [place] [phone] (Wo rk) Social History Tobacco [...] How often do you attend voodoo or baptist services? Patien t refused 06/26/2021 [...] filedocumented in this encounter Care Teams Director Of Vendor Management Relationship Specialty Start Date End Date Elsewhere, Pcp PCP - General Family Medicine 07/12/20 05/05/21 documented as of this encounter
--- OUTSIDE RECORDS SUMMARY | 2022-09-14 10:12 | XMS_ITS | Encounter Summary ---
:1960 Author Organization [facility] Address [address] [place] [address] Care Team Providers Name Role Phone Unavailable Primary Care Provider Unavailable Reason for Visit Outpatient (Routine) - Closed Specialty Diagnoses / Procedures Referred By Contact Refer red To Contact Hematology Diagnoses [facility]) [facility] [address] [place] [address] Referral ID Status Reason Start Date Expiration Date Visits Requ ested Visits Authorized [id number] Closed 02/22/2019 02/22/2020 1 1 Encounter Details Date Type Department Care Team Description 04/05/2019 Comprehensive Visit Division of [place] Thromboc ytopenia (HCC) Hematology in Gayle Steven Colwell, [address] [place] [address] [place] [address] [phone] Social History Tobacco Use Types Packs/Day Years [...] 06/26/2021 relatives? How often do you attend buddhist or restorationism services? Patilaurence t refused 06/26/2021 Do you belong to any clubs or organizations such as Patient refused 06/26/2021 buddhist groups, unions, fraternal or athletic groups, or [...] was there a time when you were Patilaurence t refused 06/26/2021 not able to pay [...] completed or the highest technical, or vocational segundo peter degree you have received? Sex Assigned at [...] CDT SUBJECTIVE REFERRAL SOURCE Yesenia [place]ood APR[place], [place] [address] Phone is [phone]. REASON FOR CONSULT Mrs. Morales is a [...] it was 13.1. 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 Current Outpatient Medications: ??? [...] week Gets together: Once a week Attends restorationism service: Patient refused Active member of club [...] future. I will send a letter to Ms. Sood. MARGIN CODE: Consult 4. CT CT Job ID: [id number] documented in this encounter Plan of Treatment Not on filedocumented as of this encounter Visit Diagnoses Diagnosis Thrombocytopenia (HCC) documented in this encounter
--- OUTSIDE RECORDS SUMMARY | 2022-09-14 10:12 | XMS_ITS | Encounter Summary ---
:1960 Author Organization [facility] Address [address] [place] [address] Care Team Providers Name Role Phone Unavailable Primary Care Provider Unavailable Reason for Visit Reason Comments Triage Encounter Details Date Type Department Care Team Description 03/06/2020 Nurse Triage Department of [facility] Ramos Sigala R.N. Triage Medicine, [facility], in [address] [place], [place] [address] [place] [address] [place] [address] [phone] Social History Tobacco Use Types Packs/Day Years [...] 06/26/2021 relatives? How often do you attend scientology or advent services? Patien t refused 06/26/2021 Do you belong to any clubs or organizations such as Patient refused 06/26/2021 scientology groups, unions, fraternal or athletic groups, or [...]
--- OUTSIDE RECORDS SUMMARY | 2022-09-14 10:12 | XMS_ITS | Encounter Summary ---
:1960 Author Organization [facility] Address [address] [place] [address] Care Team Providers Name Role Phone Unavailable Primary Care Provider Unavailable Reason for Visit Physical Therapy (Routine) - Canceled Specialty Diagnoses / Procedures Referred By Contact Refer red To Contact Diagnoses Herniated Disc Lumbar Yandel Boswell M.D. [facility] Procedures PT Ongoing treatment [address] [place] [address] Referral ID Status Reason Start Date Expiration Date Visits V isits Requested Authorized [id number] Canceled 04/08/2020 10/10/2020 99 99 Encounter Details Date Type Department Care Team Description 05/21/2020 Clinical Support Department of Yandel Boswell M.D. [address] [place] [address] Herniated Disc Rehabilitation Niurka Serrano PSukhiT., D.P.T. Lumbar Services in [address] [phone] Social History Tobacco Use Types Packs/Day Years [...] How often do you attend buddhist or cheondoism services? Shelli machuca refused 06/26/2021 Do you [...] eval and treat Onset Date: 03/29/20 Payor: [employer] / Plan: [employer] OPEN ACCESS / Product Type: PPO / [...] 10 reps - 2 sets Access Code: [email or web address] Exercises ??? Supine Bridge with Heels on Tongan Ball and Knees Bent - 10 reps - 3 sets - 1x daily - 7x weekly ??? Bridge with Heels on Tongan Ball - 10 reps - 3 sets [...] P.T., D.P.T. Department of Rehabilitation Services in [address] [address] Dept: [phone] documented in this encounter Plan of Treatment Not on filedocumented as of this encounter Visit Diagnoses Diagnosis Herniated Disc Lumbar documented in this encounter
--- OUTSIDE RECORDS SUMMARY | 2022-09-14 10:12 | XMS_ITS | Encounter Summary ---
:1960 Author Organization [facility] Address [address] [place] [address] Care Team Providers Name Role Phone Unavailable Primary Care Provider Unavailable Reason for Visit Physical Therapy (Routine) - Canceled Specialty Diagnoses / Procedures Referred By Contact Refer red To Contact Diagnoses Herniated Disc Lumbar Yandel Boswell M.D. [facility] Procedures PT Ongoing treatment [address] [place] [address] Referral ID Status Reason Start Date Expiration Date Visits V isits Requested Authorized [id number] Canceled 04/08/2020 10/10/2020 99 99 Encounter Details Date Type Department Care Team Description 04/16/2020 Clinical Support Department of Yandel Boswell M.D. [address] [place] [address] Herniated Disc Rehabilitation Niurka Serrano PSukhiT., D.P.T. Lumbar Services in [address] [phone] Social History Tobacco Use Types Packs/Day Years [...] How often do you attend congregational or zoroastrian services? Shelli machuca refused 06/26/2021 Do you [...] eval and treat Onset Date: 03/29/20 Payor: [employer] / Plan: [employer] OPEN ACCESS / Product Type: PPO / [...] pain with single leg stance Access Code: [email or web address] Exercises ?? Prone Press Up on Elbows [...] P.T., D.P.T. Department of Rehabilitation Services in [address] [place] [address] Dept: [phone] documented in this encounter Plan of Treatment Not on filedocumented as of this encounter Visit Diagnoses Diagnosis Herniated Disc Lumbar documented in this encounter
--- OUTSIDE RECORDS SUMMARY | 2022-09-14 10:12 | XMS_ITS | Encounter Summary ---
:1960 Author Organization [facility] Address [address] [place] [address] Care Team Providers Name Role Phone Unavailable Primary Care Provider Unavailable Reason for Visit Reason Comments Shortness of Breath Anxiety Encounter Details Date Type Department Care Team Description 03/06/2020 Emergency [place] Smith, [place] ty (Primary Dx); Department C.N.P. Shortness Of Breath; [address] [place] [address] [place] [address] Other Chest Pain; [place], [place] [phone] [phone] Social History Tobacco Use Types Packs/Day Years [...] 06/26/2021 relatives? How often do you attend jehovah's witness or caodaism services? Patien t refused 06/26/2021 Do you belong to any clubs or organizations such as Patient refused 06/26/2021 jehovah's witness groups, unions, fraternal or athletic groups, or [...] the highest level of school Associate degree: mialn brody, 04/02/2019 you have completed or the [...] sent through Care Everywhere. Living With Anxiety (Mauritanian)Hypokalemia (Mauritanian)Shortness of Breath Adult Vsns-ze-Gqdp (Mauritanian)Nonspecific Chest Pain Adult Dkmr-zf-Jroh (Mauritanian) documented in this encounter Medications at Time [...] cholecalciferol (VITAMIN Take 1 capsule by 0 /06/201605/26/2021 D3) 2,000 Unit capsule mouth daily. glipiZIDE [...] this encounter ED Notes Timmy Smith, TYRONE, C.N.P. - 03/06/2020 1:28 AM CDT SUBJECTIVE CHIEF [...] 03/06/20 0130 03/06/20 0118 03/06/20 0118 03/06/20 011 36.3 ??C 64 64 (!) 26 156/72 [...] differential diagnoses. The life threatening differentials include: ACS/GA, pulmonary embolism, tension pneumothorax, cardiac tamponade, Esophageal [...] I have low suspicion for ACS or GA. She was given a dose of Ativan [...] 0 ED Course as of Mar 06 411 Wed March 06, 2020 0136 Patient does feels that [...] supplements. ??If the result does not [facility] clinical observations, repeat testing after patient [...] Laterality Blood (Blood, 03/06/2020 3:35 AM 03/06/20 20 3:39 Venous) CDT AM CDT Narrative [facility] [place] [facility] - 03/06/2020 4:01 AM CDT Specimen Information: Specimen ID: [id number] Specimen Type: Blood Specimen Collection Start Date: 03/06/20 20 ??3:35 AM Specimen Received Date: 03/06/2020 ??3:3 9 AM Specimen ID: [id number] Specimen Type: Blood Specimen Collection Start Date: 03/06/20 20 ??3:35 AM Specimen Received Date: 03/06/2020 ??3:3 9 AM Timmy Smith C.N.P. LAB BLOOD TROPONIN Performing Organization Address City/State/ZIP Code Phon e Number [facility] [address] [place] [address] [place] [address] [place] [address] System in [place] [address] DX Chest Portable 1 View (03/06/2020 [...] otherwise negative for acute findi ngs. Timmy Leon Smith C.N.P. IMG DIAGNOSTIC IMAGING PROCE DURES (ABNORMAL) Basic [...] eGFR-Black/Afri 33 (L) >=60 03/06/2020 [facility] can Citizen [place] mL/min/BSA 2:42 AM CDT Comment: ----ADDITIONAL INFORMATION---- Estimated GFR calculated using the 2009 CKD_EPI creatinine equation. eGFR Non-Black/ 29 (L) >=60 mL/min/BSA 03/06/2020 2:42 AM CDT [facility] [place] Comment: ----ADDITIONAL INFORMATION---- Estimated GFR calculated using [...] 03/06/20 20 1:49 Venous) CDT AM CDT Warner N Smith C.N.P. LAB BLOOD ADD-ON Performing Organization Address City/State/ZIP Code Phon e Number [facility] [address] [place] [address] [place] [address] System [address] Prothrombin Time (PT) (03/06/2020 1:43 AM CDT) athologist Signature Prothrombin 12.3 9.4 - 12.5 03/06/2020 [facility] Time, P sec 2:00 AM CDT INR [...] 1:49 Venous) CDT AM CDT Timmy N Sarah C.N.P. LAB BLOOD ADD-ON Performing Organization Address City/[facility]/ZIP Code Phon e Number [id number] [place] [address] [place] [address] (ABNORMAL) Troponin T, Baseline, 5th gen (03/06/2020 1:43 AM CDT) athologist Signature Troponin T, 11 (H) <=10 ng/L 03/06/2020 [facility] Baseline, 5th 2:21 AM CDT gen Comment: Biotin has been identified by the abdoul austin as a potential interfering substance. ??Higher concentr ations of biotin may be found in multivitamins, hair/nail supple ments, and workout supplements. ??If the result does not [facility] clinical observations, repeat testing after patient refrains fr om the use of supplements for at least 12 hours. Specimen Anatomical Collection Method Collection Time Receive d Time (Source) Location / / Volume Laterality Blood (Blood, 03/06/2020 1:43 AM 03/06/20 20 1:49 Venous) CDT AM CDT Timmy N Smith C.N.P. LAB BLOOD TROPONIN Performing Organization Address [facility]/ZIP Code Phon e Number [address] [address] [place] [address] System [address] (ABNORMAL) Lipase (03/06/2020 1:43 AM CDT) P athologist Signature Lipase, P 96 (H) 13 - 60 U/L 03/06/2020 CN[facility] 2:42 AM CDT Specimen Anatomical Collection Method Collection Time Receive d Time (Source) Location / / Volume Laterality Blood (Blood, 03/06/2020 1:43 AM 03/06/20 1:49 Venous) CDT AM CDT Timmy Smith C.N.P. LAB BLOOD ADD-ON Performing Organization Address City/[facility] Phon e Number [address] [address] [place] [address] [address] NT-Pro B-Type Natriuretic Peptide (BNP) (03/06/2020 1:43 AM CDT) P athologist Signature NT-Pro BNP 60 <=168 pg/mL [...] supplements. ??If the result does not [facility] clinical observations, repeat testing after patient refrains fr om the use of supplements for at least 12 hours. Specimen Anatomical Collection Method Collection Time Receive d Time (Source) Location / / Volume Laterality Blood (Blood, 03/06/2020 1:43 AM 03/06/20 1:49 Venous) CDT AM CDT Timmy Smith C.N.P. LAB BLOOD ADD-ON Performing Organization Address City/[facility]/ZIP Code Phon e Number [address] [address] [place] [address] [address] (ABNORMAL) CBC with Differential, Blood (03/06/2020 1:43 AM CDT) [facility] gist Method Time Signature Hemoglobin 15.8 [...] 20 1:49 Venous) CDT AM CDT Timmy N Sarah C.N.P. LAB BLOOD ADD-ON Performing Organization Address City/State/ZIP Code Phon e Number [facility] [address] [place] [address] [place] [facility] [place] [address] System in [place] ECG 12 Lead (03/06/2020 1:37 AM CDT) P athologist Signature Ventricular Rate 61 BPM MUSE ECG/Min [place] Interval 172 ms MUSE QRSD Interval 96 ms MUSE QT Interval 475 ms MUSE QTC Interval 479 ms MUSE P [place] 0 degrees MUSE R [place] -7 degrees MUSE T Wave [place] -8 degrees MUSE Specimen Anatomical Collection Method Collection Time Receive d Time (Source) Location / / Volume Laterality 03/06/2020 1:37 AM 0 2:25 CDT AM CDT Impressions MUSE - 03/06/2020 2:25 AM CDT Normal sinus rhythm Nonspecific ST abnormality When compared with ECG of 10-DEC-2015 11 :14, T waves have changed Reviewed by MARTHA Cagle Narrative This result has an attachment that [...] to 3 most recent administrations Medication Order DEC Action Action Date Dose Rate Site LORazepam [...] total of 60 mEq Depending on the deputy sheriff k9 handler this tablet may be split on score [...] (COMPLETED) 0205 (Given - Provider: Rosalina Francisco RSukhiNSukhi) 1 mg, oral, Once, On Wed03/06/20 at 0128, For 1 dose potassium chloride ER tablet 60 mEq (KLOR-CON M/KDUR) (COMPLETED ) 030 (Given - Provider: Rosalina Francisco RSukhiNSukhi) 60 mEq, oral, Once, On Wed03/06/20 at 02 47, For 1 dose, For K<3.0-3.2 mEq/L - give total of 60 mEq Depending on the deputy sheriff k9 handler this tablet may be split on score [...]
--- OUTSIDE RECORDS SUMMARY | 2022-09-14 10:12 | XMS_ITS | Encounter Summary ---
:1960 Author Organization [facility] Address [address] [place] [address] Care Team Providers Name Role Phone Unavailable Primary Care Provider Unavailable Reason for Visit Reason Comments COVID Inquiry Encounter Details Date Type Department Care Team Description 04/01/2020 Clinical Communication Department of Niurka Serrano VINina Inquiry Rehabilitation Services M, P.T., D.P.T. in [facility] [phone] [address] Social History Tobacco Use Types [...] 06/26/2021 relatives? How often do you attend faith or caodaism services? Patien t refused 06/26/2021 Do you belong to any clubs or organizations such as Patient refused 06/26/2021 faith groups, unions, fraternal or athletic groups, or [...] or slept in a detention (including now)? Education Answer Date Recorded What [...]
--- OUTSIDE RECORDS SUMMARY | 2022-09-14 10:12 | XMS_ITS | Encounter Summary ---
:[address] [facility] Address [address] [place] [address] Care Team Providers Name Role Phone Anabella Chow APRN, C.N.PSukhi, D.N.P. Primary Care Provider Reason for Referral Physical Therapy (Routine) - Closed Specialty Diagnoses / Procedures Referred By Contact Refer red To Contact Diagnoses Pain Hip Left Anabella Chow APRN, [facility] Procedures PT Evaluate and treat C.N.P., D.N.P. [address] [place] [phone] Referral ID Status Reason Start Date Expiration Date Visits Requ ested Visits Authorized [id number] Closed 05/26/2021 10/10/2021 1 1 utpatient (Routine) - Closed Specialty Diagnoses / Procedures Referred By Contact Refer red To Contact [facility] Internal Diagnoses Atypical Squamous Cell Uncertain Significance Personal History Anabella Chow [facility] Medicine TYRONE C.N.P., D.N.P. [address] [place] [address] Referral ID Status Reason Start Date Expiration Date Visits Requ ested Visits Authorized [id number] Closed 05/26/2021 05/26/2022 1 1 Specialty Diagnoses / Procedures Referred By Contact Diamante arambula To Contact Anabella Chow APRN C.N.PSukhi, [facility] D.N.P. [address] [place] [phone] Referral ID Status Reason Start Date Expiration Date Visits Requ ested Visits Authorized utpatient (Routine) - Closed Specialty Diagnoses / Procedures Referred By Contact Diamante arambula To Contact Diagnoses Screening Mammogram Average Risk Patient Anabella Chow APRN, [facility] Procedures BI Breast Screening Bilateral with Tomosynthesis C.N.P., D.N.P. [address] [place] [phone] Referral ID Status Reason Start Date Expiration Date Visits Requ ested Visits Authorized [id number] Closed 05/26/2021 05/26/2022 1 1 Reason for Visit Reason Comments Establish Care Appointment Request (Routine) - Closed Specialty Diagnoses / Procedures Referred By Contact Diamante arambula To Contact [facility] Internal Medicine Referral ID Status Reason Start Date Expiration Date Visits Requ ested Visits Authorized [id number] Closed 05/06/2021 05/06/2022 1 1 Encounter Details Date Type Department Care Team Description 05/26/2021 Comprehensive Visit Department of Anabella Chow Diabfreya john paul Mellitus Type 2 Without Complication (HCC) (Primary Dx); Internal Medicine TYRONE Harrison, Hypertensi on And Chronic Kidney Disease Stage 1 To 4; in [place] C.N.PSukhi, D.N.P. Chronic Kidney Disease Stage 4 Glomerula r Filtration Rate 15-29 (HCC); [address] Major Depressive Disorder Si ngle Episode Unspecified; [address] Hyperlipidemia; [place] Insomnia; [phone] Thrombocytopenia (HCC); [phone] Morbid Severe O besity Due To Excess Calories (HCC); (Work) Pain Hip Left; [phone] Screening Mammo gram Average Risk Patient; (Fax) [...] 06/26/2021 relatives? How often do you attend episcopal or anabaptist services? Patien t refused 06/26/2021 Do you belong to any clubs or organizations such as Patient refused 06/26/2021 episcopal groups, unions, fraternal or athletic groups, or [...] or the highest technical, or vocational p [facility] degree you have received? Sex Assigned at [...] new primary care provider. she previously received [facility] clinic. Acute concerns: Left hip pain: Going on [...] - Lipitor LDL - Diet/exercise: Saw a clinical educator when first diagnosed. Did a virtual [...] #1 Diabetes Mellitus Type 2 Without Complication ([facility]) Assessment & Plan: Unfortunately A1c has risen [...] referral for her to meet with our clinical educator did talk about ways to lower [...] Random, Urine - C-Peptide - Nutrition - telehealth nurse educator visit (clinic); Future; Expected date: 05/26/2021 [...] weight loss. Offered a referral to our metal tank erector to review changes that could bemade to [...] or concerns. Thank you Anabella Chow APRN, [place].N.PSukhi, Nina.N.P. Assessment & Plan Note - Anabella Chow APRN, C.N.PSukhi, D.N.P. - 05/26/2021 12:54 PM CDTAssociated [...] Anabella Chow APRN, C.N.P., D.N.P. - 05/26/2021 12:53 PM CDTAssociated [...] weight loss. Offered a referral to our metal tank erector to review changes that could bemade to improve diet. she will let us know if there are any ways we can further support her in meeting her weight loss goals. Assessment & Plan Note - Anabella Chow APRN C.N.P., Nina.N.P. - 05/26/2021 12:52 PM CDTAssociated Problem(s): Major [...] referral for her to meet with our clinical educator did talk about ways to lower [...] Outpatient Referral Routine Diabetes Mellitus Exp ected: telehealth nurse educator Type 2 Without 05/26/20 21 visit (clinic) Complication (HCC) (Approx imate), Expires: 05/26/2022 Community Internal Outpatient Referral Routine Atypical Squamo us Expected: Medicine office Cell Uncertain 06/26/2021 visit (clinic) Significance Personal (Mary Kate monikate), History Expires: 05/26/2024 documented as of this encounter Procedures Procedure Name Priority Date/Time Associated Diagnosis Comme nts ALBUMIN, RANDOM, U Routine 05/26/2021 12:00 Diabetes Mellitus Type 2 Results for this PM CDT Without Complication procedu re are in ([facility]) the results section. C-PEPTIDE, S Routine 05/26/2021 11:43 Diabetes Mellitus Type 2 Results for this AM CDT Without Complication procedu re are in ([facility]) the results section. LIPID PANEL, S Routine 05/26/2021 11:42 Hyperlipidemia Results for this AM CDT procedure are i n the results section. CBC WITH Routine 05/26/2021 11:42 Thrombocytopenia ([facility]) R esults for this DIFFERENTIAL, B AM CDT procedure ar e in the results section. HEMOGLOBIN A1C, B Routine 05/26/2021 11:42 Diabetes Mellitus T ype 2 Results for this AM CDT Without Complication procedu re are in (HCC) the results section. BASIC METABOLIC Routine 05/26/2021 11:42 Hypertension And Materials And Processes Manager deepak Results for this PANEL, S/P AM CDT Kidney Disease Stage 1 proce dure are in To 4 the results section. documented in this encounter Results BI Breast Screening Bilateral with Tomosynthesis (05/27/2021 8:13 AM CDT) Anatomical Region Laterality Modality Breast, Breast Imaging RST LOS, Breast Imaging ARZ LOS, [place] st Bilateral Mammography Imaging FLA LOS Specimen [...] arthrit is lower lumbar spine. Anabella Chow APRN, C.N.P., Nina.N.P. IMG DIAGNOSTIC IM AGING PROCEDURES Albumin, Random, [...] Clean Catch) PM CDT 12:00 PM CDT Anabella Chow APRN, C.N.P., D.N.P. LAB URINE ORDERAB LES Performing Organization Address City/Community [facility] Systems/ZIP Code Phon e Number [facility]- [address] [place] [address] [address] [place] [address] System in [address] (ABNORMAL) C-Peptide (05/26/2021 11:43 AM CDT) athologist Signature C-Peptide, S 4.6 (H) 1.1 - 4.4 05/26/2021 [facility] ng/mL 8:34 PM CDT Specimen Anatomical Collection Method Collection Time Receive d Time (Source) Location / / Volume Laterality Blood (Blood, 05/26/2021 11:43 05/26/2021 8:01 Venous) AM CDT PM CDT Miguel Prasad APRNPSukhi, D.N.P. LAB BLOOD ADD-ON Performing Organization Address City/[facility]/ZIP Code Phon e Number [facility] [address] [place], [place] [address] [facility] [place] [address] Laboratory Medicine and Pathology [address] [place] (ABNORMAL) CBC with Differential, Blood (05/26/2021 11:42 AM CDT) [facility] Method Time Signature Hemoglobin 15.0 11.6 - [...] 05/26/2021 Venous) AM CDT 11:44 AM CDT Blair Prasad APRNN.P., D.N.P. LAB BLOOD ADD-ON Performing Organization Address City/State/ZIP Code Phon e Number [facility]- Tammie Barrios [place], [place] [address] [place] [facility] [place] [place] [address] System in [place] Tammie Barrios (ABNORMAL) Lipid Panel (05/26/2021 11:42 [...] 05/26/2021 Venous) AM CDT 11:44 AM CDT Blair Prasad APRNN.P., D.N.P. LAB BLOOD ADD-ON Performing Organization Address City/State/ZIP Code Phon e Number [facility]- Tammie [place], [place] [address] [address] [place] [address] System [address] (ABNORMAL) Hemoglobin A1c (05/26/2021 11:42 AM [...] AM CDT 11:44 AM CDT Anabella Chow APRN C.N.P., D.N.P. LAB BLOOD ADD-ON Performing Organization Address City/State/ZIP Code Phon e Number [facility]- [address] [place] [address], [place] [address] [facility] [place] [place] [address] System in [address] (ABNORMAL) Basic Metabolic Panel (05/26/2021 11:42 [...] eGFR-Black/Afri 38 (L) >=60 05/26/2021 [facility] [place] mL/min/BSA 12:41 PM CDT Comment: ----ADDITIONAL INFORMATION---- Estimated GFR calculated using the 2009 CKD_EPI creatinine equation. eGFR Non-Black/ 33 (L) >=60 mL/min/BSA 05/26/2021 12:41 PM CDT [facility] [place] Comment: ----ADDITIONAL INFORMATION---- Estimated GFR calculated using [...] Phon e Number [facility]- [address] [place] [address] [address] [place] [address] System in [place] [address] [place] [address] documented in this encounter Visit Diagnoses Diagnosis [...] documented as of this encounter Care Teams Certified Registered Dental Assistant Relationship Specialty Start Date End Date Anabella Chow APRN, C.N.P., PCP - General Internal Medicine 04/1105/10/22 James [address] [place] [address] documented as of this encounter
--- OUTSIDE RECORDS SUMMARY | 2022-09-14 10:12 | XMS_ITS | Encounter Summary ---
:1960 Author Organization [facility] Address [address] [place] [address] Care Team Providers Name Role Phone Anabella Chow APRN C.N.PSukhi, D.N.P. Primary Care Provider Encounter Details Date Type Department Care Team Description 05/26/2021 Hospital Encounter Department of Anabella Chow Pai n Hip Left Rad[place] D.N.[place]. [address] [facility] [address] [place] [phone] (Wo rk) Social History Tobacco Use Types [...] How often do you attend scientology or gnosticism services? Patien t refused 06/26/2021 Do you [...] documented as of this encounter Care Teams Underground Bolting Machine Operator Relationship Specialty Start Date End Date Anabella Chow APRN, C.N.P., PCP - General Internal Medicine 04/1105/10/22 D.N.P. [address] [place] [address] documented as of this encounter
--- OUTSIDE RECORDS SUMMARY | 2022-09-14 10:12 | XMS_ITS | Encounter Summary ---
:1960 Author Organization [facility] Address [address] [place] [address] Care Team Providers Name Role Phone Elsewhere, Pcp Primary Care Provider Unavailable Encounter Details Date Type Department Care Team Description 08/06/2020 Immunization Department of [facility] Carolyn Manning Vaccine Medicine, Pelon Mcduffie M.D. Immunization [address] [address] [place], [place] [phone] (Work) [phone] Social History Tobacco Use Types Packs/Day Years [...] 06/26/2021 relatives? How often do you attend congregation or mosque services? Patien t refused 06/26/2021 Do you belong to any clubs or organizations such as Patient refused 06/26/2021 congregation groups, unions, fraternal or athletic groups, or [...] Influenza documented in this encounter Care Teams Lacquer Sprayer Relationship Specialty Start Date End Date Elsewhere, Pcp PCP - General Family Medicine 07/12/20 05/05/21 documented as of this encounter
--- OUTSIDE RECORDS SUMMARY | 2022-09-14 10:12 | XMS_ITS | Encounter Summary ---
:1960 Author Organization [facility] Address [address] [place] [address] Care Team Providers Name Role Phone Unavailable Primary Care Provider Unavailable Reason for Visit Physical Therapy (Routine) - Canceled Specialty Diagnoses / Procedures Referred By Contact Refer red To Contact Diagnoses Herniated Disc Lumbar Yandel Boswell M.D. [facility] Procedures PT Ongoing treatment [address] [place] [address] Referral ID Status Reason Start Date Expiration Date Visits V isits Requested Authorized [id number] Canceled 04/08/2020 10/10/2020 99 99 Encounter Details Date Type Department Care Team Description 05/14/2020 Clinical Support Department of Yandel Boswell M.D. [address] [place] [address] Herniated Disc Rehabilitation Niurka Serrano PSukhiT., D.P.T. Lumbar Services in [address] [phone] Social History Tobacco Use Types Packs/Day Years [...] 06/26/2021 relatives? How often do you attend baptist or jewish services? Shelli machuca refused 06/26/2021 Do you belong to any clubs or organizations such as Patient refused 06/26/2021 baptist groups, unions, fraternal or athletic groups, or [...] place to sleep or slept in a custodial (including now)? Education Answer Date Recorded What [...] eval and treat Onset Date: 03/29/20 Payor: [employer] / Plan: [employer] OPEN ACCESS / Product Type: PPO / [...] P.T., D.P.T. Department of Rehabilitation Services in [address] [address] Dept: [phone] documented in this encounter Plan of Treatment Not on filedocumented as of this encounter Visit Diagnoses Diagnosis Herniated Disc Lumbar documented in this encounter
--- OUTSIDE RECORDS SUMMARY | 2022-09-14 10:12 | XMS_ITS | Encounter Summary ---
:[address] [facility] Address [address] [place] [address] Care Team Providers Name Role Phone Elsewhere, Pcp Primary Care Provider Unavailable Encounter Details Date Type Department Care Team Description 10/02/[address] [facility] Jozef Mckeon [address], [place] M.D. [id number] [place] [address] [address] [place], [place] [address] [place] [address] [phone] (Wo rk) Social History Tobacco Use Types [...] 06/26/2021 relatives? How often do you attend jain or mandaeism services? Patien t refused 06/26/2021 Do you belong to any clubs or organizations such as Patient refused 06/26/2021 jain groups, unions, fraternal or athletic groups, or [...] on filedocumented in this encounter Care Teams Retail Event Assistant Relationship Specialty Start Date End Date Elsewhere, Pcp PCP - General Internal Medicine 05/11/22 documented as of this encounter
--- OUTSIDE RECORDS SUMMARY | 2022-09-14 10:12 | XMS_ITS | Encounter Summary ---
:1960 Author Organization [facility] Address [address] [place] [address] Care Team Providers Name Role Phone Unavailable Primary Care Provider Unavailable Encounter Details Date Type Department Care Team Description 04/05/2019 Clinical Communication Division of Hematology [place] in [facility] dominik Araujo [address] [facility] [address] [place] [phone] Social History Tobacco Use Types Packs/Day Years [...] How often do you attend methodist or mosque services? Patien t refused 06/26/2021 [...]
--- OUTSIDE RECORDS SUMMARY | 2022-09-14 10:12 | XMS_ITS | Encounter Summary ---
:1960 Author Organization [facility] Address [address] [place] [address] Care Team Providers Name Role Phone Anabella Chow APRN C.N.PSukhi, D.N.P. Primary Care Provider Reason for Visit Reason Comments Diabetes Quality Care Review Encounter Details Date Type Department Care Team Description 05/16/2021 Clinical Communication Department of Anabella Chow (Quality Internal Medicine TYRONE Harrison, Care Revie w) in [place], C.N.P., D.N.P. [address] [phone] Social History Tobacco Use [...] How often do you attend jewish or moravian services? Shelli t refused 06/26/2021 [...] on filedocumented in this encounter Care Teams Cottage Master Relationship Specialty Start Date End Date Anabella Chow APRN, C.N.P., PCP - General Internal Medicine 04/1105/10/22 ElePSukhi [address] [place] [address] documented as of this encounter
--- OUTSIDE RECORDS SUMMARY | 2022-09-14 10:12 | XMS_ITS | Encounter Summary ---
:1960 Author Organization [facility] Address [address] [place] [address] Care Team Providers Name Role Phone Unavailable Primary Care Provider Unavailable Reason for Visit Physical Therapy (Routine) - Canceled Specialty Diagnoses / Procedures Referred By Contact Refer red To Contact Diagnoses Herniated Disc Lumbar Yandel Boswell M.D. [facility] Procedures PT Ongoing treatment [address] [place] [address] Referral ID Status Reason Start Date Expiration Date Visits V isits Requested Authorized [id number] Canceled 04/08/2020 10/10/2020 99 99 Encounter Details Date Type Department Care Team Description 05/06/2020 Clinical Support Department of Yandel Boswell M.D. [address] [place] [address] Herniated Disc Rehabilitation Francisca Landry, P.T. [address] [place] [phone] Lumbar Services in [address] [phone] Social History Tobacco Use Types Packs/Day Years [...] How often do you attend christian or cheondoism services? Shelli machuca refused 06/26/2021 [...] Outpatient Treatment Note SUBJECTIVE Patient's Name: Angeles Diaz Morales Referring Provider: Yandel Boswell M.D. Visit Diagnosis: 1. Herniated Disc Lumbar Reason for Referral: PT eval and treat Onset Date: 03/29/20 Payor: [employer] / Plan: [employer] OPEN ACCESS / Product Type: PPO / [...] Landry P.T. Department of Rehabilitation Services in [address] [address] Dept: [phone] documented in this encounter Plan of Treatment Not on filedocumented as of this encounter Visit Diagnoses Diagnosis Herniated Disc Lumbar documented in this encounter
--- OUTSIDE RECORDS SUMMARY | 2022-09-14 10:13 | XMS_ITS | Encounter Summary ---
:1960 Author Organization [facility] Address [address] [place] [address] Care Team Providers Name Role Phone Unavailable Primary Care Provider Unavailable Encounter Details Date Type Department Care Team Description 07/22/2016 Hospital Encounter HX [facility] Butch Green M.D. [address] [place] [phone] (Wo rk) Social History Tobacco Use [...] How often do you attend congregation or yarsanism services? Patien t refused 06/26/2021 [...] place to sleep or slept in a prison (including now)? Sex Assigned at Date Recorded [...] Ser - 07/22/2016 2:29 PM CDT NOTE [facility] [place] Patient Name: Morales, Angeles PRE-PROCEDURE HISTORY AND PHYSICAL Procedure(s): Colonoscopy (07/22/2016 2:29:02 PM) Exam Date: 07/22/2016 Exam Date: 07/22/2016 Doctor: Eileen Green Patient Name: Angeles Morales : 1960 Gender: Female HEALTH HISTORY User:[id number] Health History Obtainable:YES Chief Complaint (Purpose for visit):Screening History / Details of Present Illness: History & Physical Date (MM/DD/YY) / Provider:07/22/2016 Fashion Designer needed:NO Cardiovascular?:YES Cardiovascular diagnoses:Hyperlipidemia, Hypertension Comments: Ambulatory Infusion Pump:NO Implanted Grey Roll Worker:NO Pulmonary?:NO GI?:NO Diabetes?:YES Treated with:Diet, Insulin Injection, [...] from:Patient, EMR / Patient Chart PHYSICAL EXAM User:[id number] Educational material given:YES Comment: NPO:YES NPO time:Liquid [...] healthy patient Sedation plan:Sedation by RN Provider Laura Green ([id number]) JAMES - 07/22/2016 14:44:15 [facility] Document Id: [id number] documented in this encounter Procedure Notes Eileen Green M.D. - 07/22/2016 2:29 PM CDT Colonoscopy [facility] [place] [facility] Procedure Date: 07/22/2016 2:29 PM Patient [...] and oxygen saturations were monitored continuously. The [id number] Colonoscope Serial Number [id number] was introduced under direct vision through the anus and advanced to the cecum, identified by appendiceal orifice and ileocecal valve. The colonoscopy was performed with ease. The patient tolerated the procedure well. The quality of the bowel preparation was excellent. Eileen Green, 07/22/2016 3:14:13 PM This report has been signed electronically. Number of Addenda: 0 Note Initiated On: 07/22/2016 2:29 PM Source: [facility] Document Id: [id number] documented in this encounter Nursing Notes Cyrus Otoole R.N. - 07/22/2016 1:49 PM CDT Hendrich II Fall Risk Hendrich II Fall Risk [...] of balance with steps Fall Risk Score Hendyenny II : 0 CYRUS OTOOLE RN - 07/22/2016 13:49 CDT Source: [facility] [employer] Document Id: [id number] CDT!11 documented in this encounter OR Notes Op Note - Conversion, Historical Provider Ser - 07/22/2016 2:29 PM CDT NURSE NOTE [facility] - [facility]alf Mackenzie Patient Name: Angeles Morales NURSE NOTE Procedure(s): Colonoscopy (07/22/2016 2:29:02 PM) Exam Date: 07/22/2016 Exam Date: 07/22/2016 Doctor: Eileen Green Patient Name: Angeles Andrew : 1960 Gender: Female ENDO CHECK IN User:[id number] Transportation after procedure?:YES Unix Consultant location:Waiting Room Unix Consultant's name:Liu Unix Consultant's realtion to the patient?:Spouse Unix Consultant's Phone Number: Pager Number: Tracking ID: HEALTH HISTORY User:[id number] Health History Obtainable:YES Chief Complaint (Purpose for visit):Screening History / Details of Present Illness: History & Physical Date (MM/DD/YY) / Provider:07/22/2016 Fashion Designer needed:NO Cardiovascular?:YES Cardiovascular diagnoses:Hyperlipidemia, Hypertension Comments: Ambulatory Infusion Pump:NO Implanted Grey Roll Worker:NO Pulmonary?:NO GI?:NO Diabetes?:YES Treated with:Diet, Insulin Injection, [...] EMR / Patient Chart PATIENT ASSESSMENT PRE-PROCEDURE User:[id number] Patient ID and Procedure verified:YES Prep taken:YES [...] material given:YES Comment: Intake Delay:NO PROCEDURE BEGIN User:[id number] Patient clothing and valuables removed?:N/A Abdominal exam:Soft, non-distended IV site patent?:YES Patient position (Skin integrity maintained, Approved by physician):Left Lateral Adjuncts used: Procedure room delay:NO RECOVERY QUESTIONS User:[id number] Recovery by Endo Required:YES Patient positively identified. Transferred by and report received from:DG to Siderails up, wheels locked, bed in lowest position, call blankenship in reach:YES Recovery Pain:Scale 0 - 10 Recovery pain level:0 Recovery Pain location (if applicable): Pain type (if applicable): Pain quality (if applicable): Skin assessment:Warm Abdominal exam:Soft, non-distended IV site patent?:YES DISCHARGE QUESTIONS User:[id number] Discharge Assessment:YES Level of Consciousness:Person, Place, Time, [...] independently (or at baseline)?:YES Transportation after procedure?:YES Unix Consultant location:Waiting Room Unix Consultant's name:Liu Unix Consultant's realtion to the patient?:Spouse Unix Consultant's Phone Number: Pager Number: Tracking ID: Discharge instructions?:YES Discharge instructions given to:Patient, Spouse Verbalizes understanding of discharge instructions?:YES Patient clothing and valuables returned?:YES Patient items removed: Patient clothing and valuables: Comments: Patient items returned to:Patient Discharged under the care of:Spouse Discharged via:commercial baker helper PLAN CARE PLAN INITIATED - APPLIES TO [...] Entered By Notes 14:41:11 Oxygen 2 liters/min [id number] No Notes Taken Medications Time Medication Dose Entered By Notes 14:48:41 Fentanyl IV 100 mcg Total: 100 mcg U957016 14:47:30 Midazolam IV 4 mg Total: 4 mg [id number] No Notes Taken Quan Score Time Motor Resp BP LOC O2 Entered By Total Score Notes 15:50:00 2 2 2 2 2 I625756 10 15:18:33 2 2 2 1 2 Q231453 9 15:09:19 2 2 2 1 1 B317197 8 15:05:29 2 2 2 1 1 H242968 8 15:00:51 2 2 2 1 1 H466738 8 14:55:25 2 2 2 1 1 Z875870 8 14:48:53 2 2 2 1 1 N834881 8 14:08:08 2 2 2 2 2 N360555 10 No Notes Taken Vitals Time BP HR RESP O2 Sat CO2 Entered By 14:09:45 166/72 53 20 100 - M521303 No Notes Taken PROCEDURE LOG Time Data Entered By 16:03:00 IV Fluids Infused (mL) : 1000 W869590 16:03:00 IV discontinued : IV site assessment : Dry, intact,-, Catheter Intact : YES, Comments : - R452868 15:07:00 Notes: polyp removed from splenic flexure P911602 14:41:31 PAUSE: Immediately prior to the administration of sedation/anesthetic, a quick look was performed to assess the vital signs and oxygen saturation : YES B011495 14:41:29 TIME-OUT / [place] Protocol : ALL members of the procedural team verify CORRECT PATIENT, PROCEDURE, CONSENT, [id number], DOCUMENTATION SYSTEMS, SAFETY PRECAUTIONS, EQUIPMENT CHECKED AND AVAILABLE, INSTRUMENTATION, SUPPLIES, SPECIAL REQUIREMENTS : YES, Staff members performing Time-Out : Physician,Sedation RN,Ironworker Foreman,-, Additional verification : - T256959 14:41:07 Cardiac rhythm : Normal Sinus Rhythm N062977 14:08:35 IV started : Attempts : 1, IV site : Right forearm,-, Size : 20 gauge, Comments : - Q775590 13:59:36 Temperature : Baseline Temperature (C) : 36.7, Temp reading location : Forehead U102703 Specimens Collected Jar Sample Type Procedure Lab Type Location Indication Entered By 1 Polypectomy Colonoscopy Histology Colon - Splenic flexure Polyp [id number] Time Tracking Time Event Entered By 16:45:00 Discharged X303186 15:17:56 Bedded (Recovery) I552191 15:10:52 LOWER Scope Out B197871 14:54:21 LOWER Scope In X226787 14:54:00 Extent Reached [id number] 14:40:44 MD in Room H129152 14:40:43 Patient Roomed C174978 IV Fuild Time Type Amount Infused Entered By 14:08:14 Lactated Ringers IV 1000 ml Total: 1000 ml G959669 No Notes Entered Provider Signatures Gisele Juarez, ([id number]) ESIGNED - 07/22/2016 17:05:54 Tiffanie Strong ([id number]) ESIGNED - 07/22/2016 15:11:07 Cyrus Otoole ([id number]) ESIGNED - 07/22/2016 14:16:43 Source: [facility] Document Id: [id number] documented in this encounter Miscellaneous Notes Miscellaneous - Conversion, Historical Provider Ser - 07/22/2016 4:45 PM CDT Coding Summary-Paper Based CODING DATE: 08/03/2016 FINAL [facility] STATUS: * Discharged to Home or Self Care PAYOR: Commercial Insurance APC DESCRIPTION 5312 Level 2 Lower GI Procedures ADMIT DX: REASON FOR VISIT DX: FINAL DX: PRINCIPAL: Z12.11 Encounter for screening for malignant neoplasm of colon SECONDARY: D12.3 Benign neoplasm of transverse colon K57.30 Diverticulosis of large intestine without perforation or abscess without bleeding E11.9 Type 2 diabetes mellitus without complications 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
--- OUTSIDE RECORDS SUMMARY | 2022-09-14 10:13 | XMS_ITS | Encounter Summary ---
:1960 Author Organization [facility] Address [address] [place] [address] Care Team Providers Name Role Phone Unavailable Primary Care Provider Unavailable Encounter Details Date Type Department Care Team Description 07/11/[address] [facility] ED Suzanne Cavanaugh, P.A.-C. [address] [place] [phone] (Wo rk) Social History Tobacco Use [...] How often do you attend adventism or mormonism services? Patien t refused 06/26/2021 Do you [...] in this encounter Discharge Summaries Marina Hodges RSukhiNSukhi - 07/11/2016 7:43 AM CDT ED Depart Summary [facility] Emergency Department Clinical Discharge Summary PERSON INFORMATION Name ANGELES MORALES Age 55 Years 1960 12:00 AM Sex Female Language Swiss PCP PCP, ELSEWHERE Marital Status Visit Id Visit Reason Abdominal pain; Flank pain; Abdominal pain Specialty Enc Type Emergency Med Service Emergency Medicine Referred by Track Group [facility] ED Discharge 07/11/2016 7:30 AM Tracking Id [id number] Checkout 07/11/2016 7:30 AM Checkin 07/11/2016 5:09 AM Acuity 3 -Urgent Dispo Type * Discharged to Home or Self Care Arrival 07/11/2016 5:09 AM Reg Status Complete LOS 000 02:21 Address: [address] [place] [address] [phone] Comment: PROVIDER INFORMATION Provider Role Provider Contact Time PEDRO MADDEN RN ED Nurse 07/11/16 05:39 ARA CAVANAUGH PA-C ED Provider 07/11/16 05:[address] Abdomen; Leukocytosis; Pain Abdominal L Lower Quadrant (LLQ) Comment: PATIENT EDUCATION INFORMATION Instructions: Follow up: Source: [facility] POWERCHART Document Id: [id number] Marina Hodges R.N. - 07/11/2016 7:43 AM CDT ED Discharge Instructions [address] [address] Name: ANGELES MORALES Date of : 1960 12:00 AM Visit Date: 07/11/2016 5:09 AM [facility] Number: [phone] Address: [address] [place] [phone] Primary Care Provider: PCP, ELSEWHERE IMPORTANT: [facility] in [place] would like to thank you for allowing [...] if you dont have one. Go to [email or web address] and click on Create Your Account. Then, follow the directions to complete the online form. Youll be asked for your [facility] number which you can find at [...] nurse or physician. Patient Signature or Responsible Republican/Relationship Date Time Provider Signature Date Time IMPORTANT: [...] nurse or physician. Patient Signature or Responsible Republican/Relationship Date Time Provider Signature Date Time Source: [facility] POWERCHART Document Id: [id number] documented in this encounter Medications at Time [...] On: 07/11/2016 7:37 CDT by MARINA HODGES SENIOR BI DEVELOPER Disposition Summary Present in Room During Exam/Procedure : Spouse Mode of Discharge : Ambulatory Transportation : Private vehicle Printed Discharge Instructions Given to Patient : No Reason Discharge Instructions Not Given : patient transfered by private car to [facility] [place] Patient Status at Discharge from ED : Improved MARINA HODGES RN - 07/11/2016 7:37 CDT Source: [facility] [employer] Document Id: [id number] CDT!8 Ara Cavanaugh P.A.-C. - 07/11/2016 6:50 [...] been selected or recorded.. Surgical history: Ablation ([id number]) in 2005 at 45 Years. 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 Family history: No family history items [...] Signs: McBurney's negative, Psoas negative, Ruiz's negative, [place]'s negative, Rovsing's negative. Back: Nontender and Normal [...] transferred. Discussed case with Dr. Blackmon at [facility] who agreed to acceptthe pt for transfer. [...] 10(9)/L HI Lymph Absolute 0.84 x10(9)/L LOW Meagher Absolute 0.81 x10(9)/L Eos Absolute 0.12 x10(9)/L [...] excluded. Findings discussed with Ara Cavanaugh PA-C ([phone]) at 0625 FINDINGS: There is a large, multiloculated cystic [...] arterial calcifications. Remainder negative. Blair Vogel MD [phone] 11-Jul-2016 06:57 . Impression and Plan Diagnosis Pain Abdominal L Lower Quadrant (LLQ) (Discharge, Medical) Leukocytosis (Discharge, Medical) Abnormal CT Abdomen (Discharge, Medical) Plan Condition: Stable. Disposition: Patient care transitioned to: Dr. Blackmon. Electronically Signed By: ARA CAVANAUGH PA-C On: 07/11/2016 07:11 AM Co-Signed By: PRICILA RUIZ MD On: 07/12/2016 06:37 PM Source: [employer] Document Id: [id number]} Pedro Madden R.N. - 07/11/2016 6:16 AM [...] MADDEN RN - 07/11/2016 6:16 CDT Source: [employer] Document Id: [id number] CDT!11 Pedro Madden R.N. - 07/11/2016 5:57 [...] MADDEN RN - 07/11/2016 5:57 CDT Source: [facility] [employer] Document Id: [id number] CDT!13 Pedor Madden R.N. - 07/11/2016 5:39 AM CDT [...] PNED ; Probability: 0 ; Diagnosis Code: [id number] Triage Chief Complaint Description : see triage note Mode of Arrival ED : Private vehicle Track : Medical Languages : Swiss Treatments Prior to Arrival : Acetaminophen Is Patient Female and 13-50 no hysterectomy : No PEDRO MADDEN RN - 07/11/2016 5:39 CDT Pain [...] MADDEN RN - 07/11/2016 5:39 CDT Source: [employer] Document Id: [id number] CDT!43 Pedro Madden R.N. - 07/11/2016 5:17 [...] PNED ; Probability: 0 ; Diagnosis Code: [id number] Triage Chief Complaint Description : is having [...] Private vehicle Track : Medical Languages : Swiss Patient Informed of Triage Location : Emergency [...] Acuity : 3 -Urgent Tracking Group : [facility] ED PEDRO MADDEN RN - 07/11/2016 5:17 [...] MADDEN RN - 07/11/2016 5:17 CDT Source: [facility] [employer] Document Id: [id number] CDT!43 documented in this encounter Miscellaneous Notes Transfer of Care - Marina Hodges R.N. - 07/11/2016 7:39 AM CDT Patient Transfer [...] CAVANAUGH PA-C Receiving Facility Accepting Transfer : [facility] Ralf Mackenzie Manager Medicare of receiving facility accepting patient : Dr. [...] HODGES RN - 07/11/2016 7:39 CDT Source: [employer] Document Id: [id number] CDT!29 Miscellaneous - Marina Hodges R.N. - 07/11/2016 7:38 AM CDT Valuables/Belongings Valuables/Belongings Entered On: 07/11/2016 7:38 CDT Performed On: 07/11/2016 7:38 CDT by MARINA HODGES RN Valuables/Belongings Belongings Sent Home With : patient MARINA HODGES RN - 07/11/2016 7:38 CDT Source: [employer] Document Id: [id number] CDT!3 Miscellaneous - Conversion, Historical Provider Ser - 07/11/2016 7:30 AM CDT Coding Summary-Paper Based CODING DATE: 08/03/2016 FINAL [facility] STATUS: * Discharged to Home or [...] BARAKAT Date Saved: 08/03/2016 07:47 am Source: [facility] POWERCHART Document Id: [id number] Miscellaneous - Marina Hodges R.N. - 07/11/2016 5:09 AM CDT Facility Charge [...] Control : 10 Lynx Visit Level : 98437 Level 4 Treatments Prior to Arrival : Acetaminophen MARINA HODGES RN - 07/11/2016 7:38 CDT Source: [facility] POWERCHART Document Id: [id number] CDT!18 documented in this encounter Plan of [...] Erythrocytes 5.11 (H) 3.90 - POWERCHART 5.03 W8746E Hemoglobin 14.8 12.0 - POWERCHART 15.5 GDL [...] MMOLL HXeGFR (MDRD) 26 (L) >=60 POWERCHART STPUZ669G 2 eGFR Black/ 32 (L) >=60 POWERCHART Cameroonian LWMZB735S 2 Bilirubin, Total, S 0.9 0.1 - [...] Color Yellow Colorless POWERCHART Specific 1.015 POWERCHART [place], POCT, U Comment: Reference Range Specific [place]: 1.000-1.035 pH, POCT, Urine 5.5 <5.0 POWERCHART [...]
--- OUTSIDE RECORDS SUMMARY | 2022-09-14 10:13 | XMS_ITS | Encounter Summary ---
:1960 Author Organization [facility] Address [address] [place] [address] Care Team Providers Name Role Phone Unavailable Primary Care Provider Unavailable Encounter Details Date Type Department Care Team Description 07/11/[address] [facility] ED Quan Blackmon M.D. [address] [place] [address] [phone] (Wo rk) Social History Tobacco Use [...] How often do you attend latter-day or congregation services? Patien t refused 06/26/2021 [...] 07/11/2016 1:03 PM CDT ED Depart Summary [facility] Emergency Department Clinical Discharge Summary PERSON INFORMATION Name ANGELES ALCANTARA Age 55 Years 1960 12:00 AM Sex Female Language Namibian PCP PCP, ELSEWHERE Marital Status Visit Id Visit Reason Abdominal pain; abdominal pain Specialty Enc Type Emergency Med Service Emergency Medicine Referred by Jr [facility] ED Discharge 07/11/2016 1:03 PM Tracking Id [id number] Checkout 07/11/2016 1:03 PM Checkin 07/11/2016 8:14 AM Acuity 3 -Urgent Dispo Type * Discharged to Home or Self Care Arrival 07/11/2016 8:14 AM Reg Status Complete LOS 000 04:49 Address: [address] [place] [phone] Comment: PROVIDER INFORMATION Provider Role Provider Contact Time ANDREW BARTH RN ED Nurse 07/11/16 08:16 MISAEL BLACKMON MD ED Provider 07/11/16 09:05 DIAGNOSIS Complex Ovarian Cyst Comment: PATIENT EDUCATION INFORMATION Instructions: CA 125; What Are Ovarian Cysts? Follow up: With: Address: When: PARK SUPERINTENDENT In 2 days 07/13/2016 With: Address: When: ELSEWHERE PCP Within As Needed Source: [facility] POWERCHART Document Id: [id number] ROASTER Kelli Florentino R.N. - 07/11/2016 1:03 PM CDT ED Discharge Instructions [address] [place] [address] Name: ANGELES ALCANTARA Date of : 1960 12:00 AM Visit Date: 07/11/2016 8:[address] [facility] Number: [id number] Address: [address] [place] [phone] Primary Care Provider: PCP, ELSEWHERE IMPORTANT: [facility] in [place] would like to thank you for allowing us to assist you with your healthcare needs. The following includes patient education materials and information regarding your injury/illness. Diagnosis: Complex Ovarian Cyst Follow-Up Instructions: With: Address: When: PARK SUPERINTENDENT In 2 days 07/13/2016 With: Address: When: ELSEWHERE PCP Within As Needed Your Upcoming Appointments: Date Time Location Provider 07/13/2016 14:30 [facility] PARK SUPERINTENDENT Ashley Oviedo MD Patient Education Materials: CA [...] need to prepare for this test. ?? [phone] [place] [address]. All rights reserved. This information is not [...] urination. Sometimes these cysts ruptureand bleed. ?? 5235-1549 [facility], [address] [place] [address]. All rights reserved. This information is not [...] if you dont have one. Go to [facility] [email or web address] [email or web address] and click on Create Your Account. Then, follow the directions to complete the online form. Youll be asked for your [facility] number which you can find at the top of this document. ED Tests and Procedures: Order Status US Abdomen Complete Canceled CA 125-[place] 9289 Ordered US Pelvic And Endovaginal Completed [...] ride home with a responsible green party. MARICRUZ Reardon SALLY JEAN , or responsible green party have received this information and my questions have been answered. I have discussed any challenges I see with this plan with the nurse or physician. Patient Signature or Responsible Green Party/Relationship Date Time Provider Signature Date Time This document has images extracted. Please consider using [employer] for all your patient education needs. Source: [facility] POWERCHART Document Id: [id number] documented in this encounter Medications at Time [...] Misael Blackmon - 07/11/2016 12:00 AM CDT [id number] Document Contains Addenda REVISION HISTORY September 22, 2016. 10:27 a.m. -Addendum added at the bottom of this report. Addendum includes the Physical Exam done in [place], by Joseph Sanchez PA-C. Addendum by MSIAEL BLACKMON MD on September 20, 2016 1:47 NUT ROASTER (Verified) PHYSICAL EXAM deferred. See note from Pelon Brewster. Signature Line Modified by and Electronically Signed [...] CDT Chief Complaint Description was seen in [place] and sent here for evan andultrastamika 07/11/2016 5:39 CDT Chief Complaint Description see [...] presents with abdominal pain and Seen in [place] ER. CT raised question of abnormalovarian mass and/or torsion. Sent here for U/S. Patient currently is without pain. See Note from Logan for details. . Health Status Allergies: Allergic Reactions (Selected) Severity Not Documented Amoxicillin- No reactions were documented. NSAIDs- No reactions were documented.. Past Medical/ Family/ Social History Medical history: No active or resolved past medical history items have been selected or recorded.. Surgical history: Ablation ([id number]) in 2005 at 45 Years. Comments: 06/11/2011 10:39 - ANGELA LEONARD NEMATOLOGIST Uterine. Family history: No family history items [...] AM. Electronically signed by: Aniceto Herndon MD [phone] 11-Jul-2016 11:57 Impression and Plan Diagnosis Complex Ovarian Cyst (Discharge, Emergency medicine, Medical) Calls-Consults -VIVI GRIFFITH MD, recommends CA-125, which was ordered. Follow up with MANUFACTURING WORKER in 1-2 days. . Plan Condition: Improved. Prescriptions: Prescription Youth Ministry Director Pharmacy: Percocet 5/325 oral tablet (Prescribe): 1 to 2 tablets, PO, q4hr, for 3 day(s), PRN: Pain, 12 tab(s), 0 Refill(s). Patient was given the following educational materials: What Are Ovarian Cysts?, CA 125. Follow up with: ELSEWHERE PCP Within As Needed; PARK SUPERINTENDENT In 2 days 07/13/2016. Counseled: Patient, Family, [...] Signs: McBurney's negative, Psoas negative, Ruiz's negative, [place]'s negative, Rovsing's negative. Back: Nontender and Normal alignment. Neurological: Alert and oriented to person, place, time, and situation. Psychiatric: Cooperative and appropriate mood & affect. Misael Blackmon M.D./segundo Electronically Signed By: MISAEL BLACKMON MD On: 09/22/2016 03:36 PM Source: [facility] MHSDOLBEYNONRADSYS Document Id: [id number] ROASTER documented in this encounter ED Notes Kelli Florentino R.N. - 07/11/2016 1:01 PM CDT ED Disposition Summary ED Disposition Summary Entered On: 07/11/2016 13:01 CDT Performed On: 07/11/2016 13:01 CDT by KELLI FLORENTINO FIRE EXTINGUISHER REPAIRER Disposition Summary Present in Room During Exam/Procedure : Spouse Mode of Discharge : Ambulatory Transportation : Private vehicle Printed Discharge Instructions Given to Patient : Yes Patient Status at Discharge from ED : Improved KELLI FLORENTINO RN - 07/11/2016 13:01 CDT Source: [employer] Document Id: [id number] CDT!7 Manan Barth R.N. - 07/11/2016 8:50 [...] BARTH RN - 07/11/2016 8:50 CDT Source: [employer] Document Id: [id number] CDT!12 Manan Barth R.N. - 07/11/2016 8:25 [...] PNED ; Probability: 0 ; Diagnosis Code: [id number] Triage Chief Complaint Description : Naresh is [...] Private vehicle Track : Medical Languages : Namibian Treatments Prior to Arrival : Home treatments [...] Acuity : 3 -Urgent Tracking Group : [facility] ED ANDREW BARTH RN - 07/11/2016 8:25 [...] BARTH RN - 07/11/2016 8:25 CDT Source: [employer] Document Id: [id number] CDT!61 Neelima Headley R.N. - 07/11/2016 8:15 [...] PNED ; Probability: 0 ; Diagnosis Code: [id number] Triage Chief Complaint Description : was seen in [place] and sent here for eval, and ultrasound Information Given By : Patient Present in Room During Exam/Procedure : Spouse Mode of Arrival ED : Private vehicle Track : Medical Languages : Namibian Patient Informed of Triage Location : Emergency [...] Acuity : 3 -Urgent Tracking Group : [facility] ED NEELIMA HEADLEY RN - 07/11/2016 8:15 CDT Source: [employer] Document Id: [id number] CDT!25 documented in this encounter Miscellaneous Notes Miscellaneous - Conversion, Historical Provider Ser - 07/11/2016 1:03 PM CDT Coding Summary-Paper Based CODING DATE: 10/01/2016 FINAL [facility] STATUS: * Discharged to Home or Self [...] COATES Date Saved: 10/01/2016 08:16 am Source: [employer] Document Id: [id number] Miscellaneous - Kelli Florentino R.N. - 07/11/2016 1:02 PM CDT Valuables/Belongings Valuables/Belongings Entered On: 07/11/2016 13:02 CDT Performed On: 07/11/2016 13:02 CDT by KELLI FLORENTINO RN Valuables/Belongings Valuables/Belongings Grid Valuables with Patient Clothes, Patient Valuables : Pants, Shirt, Shoes KELLI FLORENTINO RN - 07/11/2016 13:02 CDT Source: [facility] Shipping Easy Document Id: [id number] CDT!5 Miscellaneous - Kelli Florentino R.N. - [...] None Order Management RTF : Laboratory CA 125-[place] 9289,07/11/16 12:01,MISAEL BLACKMON MD Ordered CT / [...] Control : 11 Lynx Visit Level : 12748 Level 4 Treatments Prior to Arrival : Home treatments KELLI FLORENTINO RN - 07/11/2016 13:02 CDT Source: [employer] Document Id: [id number] CDT!18 documented in this encounter Plan of [...] method is an immunoenzymatic assay manufactured by [employer] and performed on the D[employer] DxI 800. Values obtained with different assay met hods or kits may be different and cannot be used interchangeably. Test results cannot be interpreted as ab solute evidence for the presence or absence of malignant disease. Test Performed by: [place] [address] Carpenter Repairer: Jeovanny Snyder II, M.D., Ph.D. Specimen (Source) Anatomical Collection Method Collection Time Re ceived Time Location / / Volume Laterality Blood 07/11/2016 12:28 PM CDT Misael Blackmon M.D. LAB BLOOD ADD-ON Performing Organization Address City/State/ZIP Code Phon e Number POWERCHART documented in this encounter Visit Diagnoses Not on filedocumented in this encounter
--- OUTSIDE RECORDS SUMMARY | 2022-09-14 10:13 | XMS_ITS | Encounter Summary ---
:1960 Author Organization [facility] Address [address] [place] [address] Care Team Providers Name Role Phone Unavailable Primary Care Provider Unavailable Encounter Details Date Type Department Care Team Description 07/13/2016 Hospital Encounter [facility]X [facility] Ashley Hercules M.D. Social History Tobacco Use [...] How often do you attend mormonism or advent services? Patien t refused 06/26/2021 [...] slept in a senior care (including now)? Sex Assigned at Date Recorded [...] This patient is a 55 year old [id number] female that presents for evaluation of ovarian cyston US. She has the following issues she would like to discuss: 1. Ovarian Cyst- Seen in ER for abdominal pain that has now resolved. CT done in [facility]. OBGYN history Last pap 03/2014 and [...] 1979 CF Female 3lbs 1 oz 1979 Melina Female 8lbs 1979 [place] Male 8lbs 12oz PAST MEDICAL/SURGICAL HISTORY Diabetes [...] None Type: No Results Found . 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 Denies domestic abuse. [...] July 11, 2016 11:57 CDT Encounter info: [id number], [facility], Emergency, 07/11/2016 - 07/11/2016 * Final Report * Reason For Exam pain, r/o ovarian torsion, per CT report Report 11-Jul-2016 09:45:00 Exam: US Pelvis with Transvaginal Indications: pain, r/o ovarian torsion, per CT report 11-Jul-2016 11:57 [facility] EXAM: US Pelvis with Transvaginal COMPARISON: CT [...] telephone at 11:55 AM. Aniceto Ackerman MD [phone] 11-Jul-2016 11:57 Signature Line Final Dictated: 07/11/2016 [...] pending. Offered Laparoscopic BSO vs RSO in [place]. Offered surgical management in [place]. Explained if cancer [place] is appropriate as RELATIONSHIP BANKER Oncologist are not available. If benign Ralf Mackenzie can perform her surgery. She is concerned about the risk of cancer and desires surgery in [place]. 2. Need pap records from [facility]. Then annual exam and pap if indicated. 3. Follow up for weight loss and incontinence 4. Mammo, Colonoscopy ordered. Total 30 minutes with 30 minutes spent counseling and coordinating care. Electronically Signed By: ASHLEY COHN MD On: 07/13/2016 05:07 PM Source: [facility] POWERCHART Document Id: [id number] documented in this encounter Miscellaneous Notes Miscellaneous - Ashley Cohn M.D. - 07/13/2016 5:08 PM CDT Ambulatory Patient Summary [address] [place], [place] [id number] Visit Information Name: ANGELES MORALES [facility] Number: [id number] Current Date: 07/13/2016 17:08:13 Physicians [...] Appointments Date Time Location Provider 07/14/2016 07:45 [facility] Jennifer Faith NP 07/22/2016 14:00 [facility] Endoscopy Whit WALTERS, Jeovanny Wood Attention: Contact [...] or jacobo tissue with menstrual bleeding ?? [id number] [facility], [address] [place] [address], [place] [address]. All rights reserved. This information is not [...] if you dont have one. Go to [email or web address] and click on Create Your Account. Then, follow the directions to complete the online form. Youll be asked for your [facility] number which you can find at the top of this document. Your Goals/Additional instructions: This document has images extracted. Please consider using [employer]) for all your patient education needs. Source: [facility] POWERCHART Document Id: [id number] Miscellaneous - Ashley Cohn M.D. - 07/13/2016 5:08 PM CDT Ambulatory Discharge Medication List [facility] [address], [address] [place], [place] [id number] Visit Information Name: ANGELES MORALES [facility] Number: [id number] Visit Date: 07/13/2016 17:08:12 Attending [...] MD Signed On:13-JUL-2016 15:05:35 Additional Information: Source: [facility] POWERCHART Document Id: [id number] Telephone Encounter - Conversion, Historical Provider Ser - 07/13/2016 3:33 PM CDT Outside Referral [place] Document Contains Addenda Addendum by DON LANZA on July 20, 2016 11:22:58 CDT Thank you for your referral.? We welcome the opportunity to be of service to your patient. We are pleased to confirm an appointment as follows: Date: 07/28/2016 Time: 2:15 pm Location: [facility], 12th Floor, Desk [place] [address] Department: Department of Gynecologic Surgery Provider: Dr. [...] direct that person to call us at [phone]. Entered by DON LANZA on July 13, 2016 15:33:53 CDT sent to trimble online The following patient has a Consult to Outside Specialist [place]: order placed. Patient Name: ANGELES MORALES Diagnosis: Unspecified ovarian cysts,ovarian cysts, Ordering Provider: ASHLEY COHN MD ; Original Order DT/TM: July 13, 2016 15:21:19 CDT ; Order: Consult to Outside Specialist [place] ; Order Details: Referral For: Adult Department: Glove Printer Oncology Reason For Visit: Large right ovarian mass, CA125 pending Why Needs cannot be met : NOT FOUND Why Needs cannot be met - FH : NOT FOUND Why Needs cannot be met [place] : Patient Request [place] Facility : [facility] FH : NOT FOUND Appointment Type: Surgery, Consult Appointment Type - FH: NOT FOUND Subspecialty Requested: NOT FOUND Appointment Timeline: 4-14 Days Schedule with Specific Provider, If Known: NOT FOUND Appointment has been/will be made by: [employer]/Office If yes, When is appointment: NOT FOUND Arc to Process Referral : NOT FOUND Special Instructions: Large right ovarian mass, Ca 125 pending desires surgery in [place]. Mammo,Colonoscopy to be done. Pap records from [place] pending. Reason to be Sent: NOT FOUND Complex Ovarian Cyst Source: [facility] POWERCHART Document Id: [id number] Miscellaneous - Marina Escudero L.PSukhiNSukhi - 07/13/2016 2:38 PM CDT Adult Strip Stamp Straightener Intake/History Adult Strip Stamp Straightener Intake/History Entered On: 07/13/2016 14:40 CDT Performed [...] Preferred Communication Mode : Verbal Languages : Kiswahili Is Patient Female and 13-50 no hysterectomy [...] ESCUDERO L.P.N. - 07/13/2016 14:38 CDT Source: [employer] Document Id: [id number] CDT!36 documented in this encounter Plan of Treatment Not on filedocumented as of this encounter Visit Diagnoses Not on filedocumented in this encounter
--- OUTSIDE RECORDS SUMMARY | 2022-09-14 10:13 | XMS_ITS | Encounter Summary ---
:1960 Author Organization [facility] Address [address] [place] [address] Care Team Providers Name Role Phone Unavailable Primary Care Provider Unavailable Encounter Details Date Type Department Care Team Description 06/11/2011 Hospital Encounter HX [facility] Jennifer Workman M.D. [address] [place] [phone] (Wo rk) Social History Tobacco Use [...] How often do you attend congregational or zoroastrianism services? Patien t refused 06/26/2021 Do you [...] or slept in a fci (including now)? Sex Assigned at Date Recorded Not on file documented as of this encounter Progress Notes Angela Rivers L.PSukhiN. - 06/11/2011 10:46 AM CDT Eye Services [...] RIVERS LPN - 06/11/2011 10:46 CDT Source: [facility] Document Id: [id number] CDT!6 Jennifer Zhao M.D. - 06/11/2011 12:00 AM CDT [id number] IMPRESSION/REPORT/PLAN 1. Left eyelid edema with concern [...] POON MD On: 06/16/2011 01:56 PM Source: [facility] MHSDOLBEYNONRADSYS Document Id: [id number] documented in this encounter Miscellaneous Notes Miscellaneous - Jennifer Zhao M.D. - 06/11/2011 11:20 AM CDT Ambulatory Patient Summary [address] [address] Visit Information Name: ANGELES MORALES Current Date: [...] No Appointments found Your Goals/Additional instructions: Source: [facility] POWERCHART Document Id: [id number] Electronically signed by Conversion, [facility] Sap Abap Developer [id number] at 03/14/2017 2:30 PM CDT Miscellaneous - Jennifer Zhao M.D. - 06/11/2011 11:20 AM CDT Ambulatory Depart Summary [place] [id number] [facility] [place] [address] Visit Information Name: ANGELES MORALES Current Date: [...] to the patient and/or family, guardian/caregiver. Source: [facility] [employer] Document Id: [id number] Miscellaneous - Angela Rivers L.P.N. - 06/11/2011 10:39 AM CDT Ambulatory Vitals Height Weight Ambulatory Vitals Height Weight Entered On: 06/11/2011 10:40 CDT Performed On: 06/11/2011 10:39 CDT by ANGELA RIVERS LPN Vitals/Ht/Wt Systolic Blood Pressure: 172mmHg (>HHI) Diastolic Blood Pressure: 110mmHg (>HHI) NIBP Mean: 131mmHg BP Location: Left upper extremity ANGELA RIVERS LPN - 06/11/2011 10:39 CDT Source: [facility] [employer] Document Id: [id number] CDT!6 Miscellaneous - Angela Rivers L.P.N. - 06/11/2011 10:37 [...] RIVERS LPN - 06/11/2011 10:37 CDT Source: [employer] Document Id: [id number] CDT!24 Miscellaneous - Angela Rivers, L.P.N. - 06/11/2011 10:31 AM CDT Adult Fire Extinguisher Tester Intake/History Adult Fire Extinguisher Tester Intake/History Entered On: 06/11/2011 10:37 CDT Performed [...] LPN - 06/11/2011 10:31 CDT Allergy Source: [employer] Document Id: [id number] CDT!32 documented in this encounter Plan of Treatment Not on filedocumented as of this encounter Visit Diagnoses Not on filedocumented in this encounter
--- OUTSIDE RECORDS SUMMARY | 2022-09-14 10:13 | XMS_ITS | Encounter Summary ---
:1960 Author Organization [facility] Address [address] [place] [address] Care Team Providers Name Role Phone Unavailable Primary Care Provider Unavailable Encounter Details Date Type Department Care Team Description 08/08/2016 Hospital Encounter [facility] ED Christian Mcclure Jr., M.D. [address] [place], [place] [address] (Wo rk) Social History [...] How often do you attend scientologist or anabaptist services? Patien t refused 06/26/2021 [...] 08/08/2016 7:10 AM CDT ED Discharge Instructions [facility] [address] [address] Name: ANGELES ALCANTARA Date of : 1960 12:00 AM Visit Date: 08/08/2016 3:57 AM [facility] Number: [id number] Address: [address] [place] [phone] Primary Care Provider: PCP, VICTORIA IMPORTANT: [facility] in [place] would like to thank you for allowing [...] dont have one. Go to [email or web address] and click on Create Your Account. Then, follow the directions to complete the online form. Youll be asked for your [facility] number which you can find at [...] ride home with a responsible constitution party. I, ANGELES ALCANTARA , or responsible constitution party have received this information and my questions have been answered. I have discussed any challenges I see with this plan with the nurse or physician. Patient Signature or Responsible Constitution Party/Relationship Date Time Provider Signature Date Time [...] ride home with a responsible constitution party. I, ANGELES ALCANTARA , or responsible constitution party have received this information and my questions have been answered. I have discussed any challenges I see with this plan with the nurse or physician. Patient Signature or Responsible Constitution Party/Relationship Date Time Provider Signature Date Time Source: [employer] Document Id: [id number] Akbar Lopez R.N. - 08/08/2016 7:10 AM CDT ED Depart Summary [facility] Emergency Department Clinical Discharge Summary PERSON INFORMATION Name ANGELES ALCANTARA Age 55 Years 1960 12:00 AM Sex Female Language Vietnamese PCP PCP, ELSEWHERE Marital Status Visit Id Visit Reason Abdominal pain; abdominal pain Specialty Enc Type Emergency Med Service Emergency Medicine Referred by Track Group [facility] ED Discharge 08/08/2016 7:04 AM Tracking Id [id number] Checkout 08/08/2016 7:04 AM Checkin 08/08/2016 3:57 AM Acuity 4 -Less Urgent Dispo Type Disch/Trans ShortTerm Gen Hosp-Inpt Care Arrival 08/08/2016 3:57 AM Reg Status Complete LOS 000 03:07 Address: [address] [place] [phone] Comment: PROVIDER INFORMATION Provider Role Provider Contact Time CHRISTIAN MCCLURE MD ED Provider 08/08/16 04:06 AKBAR LOPEZ INTERIOR DESIGN PROFESSIONAL Nurse 08/08/16 04:06 DIAGNOSIS Comment: PATIENT EDUCATION INFORMATION Instructions: Follow up: Source: [facility] POWERCHART Document Id: [id number] documented in this encounter Medications at Time [...] LOPEZ RN - 08/08/2016 7:09 CDT Source: [employer] Document Id: [id number] CDT!6 Akbar Lopez R.N. - 08/08/2016 7:05 [...] Discharge Instructions Not Given : transferred to [facility] Patient Status at Discharge from ED : AKBAR Mishra RN - 08/08/2016 7:05 CDT Source: [employer] Document Id: [id number] CDT!10 Akbar Lopez R.N. - 08/08/2016 6:43 [...] LOPEZ RN - 08/08/2016 6:43 CDT Source: [employer] Document Id: [id number] CDT!10 Christian Mcclure Jr., M.D. - 08/08/2016 [...] 2 diabetes Ovarian mass. Surgical history: Colonoscopy ([id number]) on 07/22/2016 at 55 Years. Pap smear ([id number]) on 03/11/2014 at 53 Years. Ablation ([id number]) in 2005 at 45 Years. 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 Family history: Not significant. Social history: [...] 8.08 10(9)/L HI Lymph Absolute 1.74 x10(9)/L [place] Absolute 0.98 x10(9)/L HI Eos Absolute 0.64 [...] changes of the spine. Reta James MD [phone] 08-Aug-2016 05:51 Signature Line Final Dictated: 08/08/2016 5:51 am Contributor_system, [facility]_RIMS_SYS Signed (Electronic Signature): 08/08/2016 5:51 am Technologist: ALVARO QUINTERO Impression and Plan Diagnosis Lower abdominal pain Ovarian Mass Pt given fentanyl 100 mcg, ativan 1 mg and zofran 4 mg and 1 L NS Pain relieved down to 6-7/10 Called to discuss with [facility] [facility] in [place] who advised transfer for further evaluation (?torsion) and treatment. Accepted by Dr Stefan Fajardo Pt given a second liter of NS and dilaudid 1 mg before transfer She was more comfortable at the time of transfer. She was in agreement with the plan and preferred to go to [place] for further evaluation given that she has established [facility] care there. Electronically Signed By: CHRISTIAN MCCLURE MD On: 08/08/2016 06:32 AM Source: [facility] POWERCHART Document Id: [id number]} Akbar Lopez RSukhiN. - 08/08/2016 5:25 AM CDT ED Pain [...] LOPEZ RN - 08/08/2016 5:25 CDT Source: [employer] Document Id: [id number] CDT!9 Akbar Lopez R.N. - 08/08/2016 5:03 AM CDT ED Treatments and Procedures ED Treatments and Procedures Entered On: 08/08/2016 5:03 CDT Performed On: 08/08/2016 5:03 CDT by AKBAR LOPEZ RN Oxygen Therapy Oxygen Start Time : 08/08/2016 4:45 CDT Oxygen Therapy : Nasal cannula Oxygen Flow Rate : 2 L/min AKBAR LOPEZ RN - 08/08/2016 5:03 CDT Source: [employer] Document Id: [id number] CDT!5 Akbar Lopez R.N. - 08/08/2016 5:02 [...] LOPEZ RN - 08/08/2016 5:02 CDT Source: [employer] Document Id: [id number] CDT!11 Akbar Lopez R.N. - 08/08/2016 4:45 AM CDT ED Pain Assessment ED Pain Assessment Entered On: 08/08/2016 4:58 CDT Performed On: 08/08/2016 4:45 CDT by AKBAR LOPEZ RN Pain Assessment Pain Symptoms : Yes AKBAR LOPEZ RN - 08/08/2016 4:58 CDT Pain Scale Pain Scale Verbal 0-10 : Open AKBAR LOPEZ RN - 08/08/2016 4:58 CDT Pain Pain Assessment Grid Pain 1 Location : Abdomen Intensity : 6 AKBAR LOPEZ RN - 08/08/2016 4:58 CDT Source: [employer] Document Id: [id number] CDT!10 Akbar Lopez R.N. - 08/08/2016 4:35 [...] LOPEZ RN - 08/08/2016 4:56 CDT Source: [employer] Document Id: [id number] CDT!13 Akbar Lopez R.N. - 08/08/2016 4:00 [...] Medical ; Code: Z12.11 ; Contributor System: [employer] ; Last Updated: 07/13/2016 15:08 CDT ; [...] Provider: PALMIRA COHN MD; Vocabulary: ICD-10-CM Diagnoses(Active) Abdominal pain Date: 08/08/2016 ; Diagnosis Type: Reason For Visit ; Confirmation: Complaint of ; Clinical Dx: Abdominal pain ; Classification: Medical ; Clinical Service: Emergency medicine ; Code: PNED ; Probability: 0 ; Diagnosis Code: [id number] Triage Chief Complaint Description : Pt c/o LLQ abdominal pain that started at 0300 suddenly. Pt reports having a mass on ovary that is scheduled for surgery on 08/21. Pt took one percocet at 0315. Information Given By : Patient Present in Room During Exam/Procedure : Spouse Mode of Arrival ED : Private vehicle Track : Medical Languages : Vietnamese Patient Informed of Triage Location : Emergency [...] AKBAR LOPEZ RN - 08/08/2016 4:09 CDT [place] Coma Eye Opening Response [place] : Spontaneously Best Verbal Response [place] : Oriented Best Motor Response Kaylin : Obeys simple commands [place]lin Coma Score : 15 AKBAR LOPEZ RN - 08/08/2016 4:09 CDT Pain Assessment Pain Symptoms : Yes AKBAR LOPEZ ISAEL - 08/08/2016 4:09 CDT Pain Scale Pain Scale Verbal 0-10 : Open LOPEZKABAR Mikel KIRKLAND - 08/08/2016 4:09 CDT Pain Pain Assessment Grid Pain 1 Location : Abdomen Laterality : Left Intensity : 8 Onset : Sudden LOPEZ AKBAR Mikel RN - 08/08/2016 4:09 CDT Comfort Measures Comfort Measures Grid Positioning : Yes NATHALIA LOPEZY Mikel KIRKLAND - 08/08/2016 4:09 CDT ED Physician Notification Time ED Physician Notification Time : 08/08/2016 4:05 CDT DIAMONDAKBAR Mikel KIRKLAND - 08/08/2016 4:09 CDT TYRONE TYRONE Level 1 : No TYRONE Level 2 : No TYRONE Level 3 : One DIAMOND AKBAR Mikel RN - 08/08/2016 4:09 CDT DCP GENERIC CODE Tracking Acuity : 4 -Less Urgent Tracking Group : [facility] ED LOPEZ, TONY Mikel [place]IRKL[place] - 08/08/2016 4:09 CDT Allergy (As Of: [...] LOPEZ RN - 08/08/2016 4:09 CDT [facility] Document Id: [id number] CDT!95 documented in this encounter Miscellaneous Notes Miscellaneous - Akbar Lopez R.N. - 08/08/2016 7:06 AM CDT Valuables/Belongings Valuables/Belongings Entered On: 08/08/2016 7:06 CDT Performed On: 08/08/2016 7:06 CDT by AKBAR LOPEZ RN Valuables/Belongings Belongings Sent Home With : EMS and spouse. Home Medication Disposition : None brought in with patient AKBAR LOPEZ RN - 08/08/2016 7:06 CDT Source: [employer] Document Id: [id number] CDT!4 Miscellaneous - Conversion, Historical Provider Ser - 08/08/2016 7:04 AM CDT Coding Summary-Paper Based CODING DATE: 08/17/[address] [facility] STATUS: Disch/Trans ShortTerm Gen Hosp-Inpt Care PAYOR: [...] BARAKAT Date Saved: 08/17/2016 07:03 am Source: [employer]) Document Id: [id number] Transfer of Care - Akbar Lopez RJohn. [...] MCCLURE MD Receiving Facility Accepting Transfer : [facility] Community Living Coach of receiving facility accepting patient : [...] LOPEZ RN - 08/08/2016 7:06 CDT [facility] POWERCHART Document Id: [id number] CDT!31 Miscellaneous - Akbar Lopez R.N. - [...] MCCLURE MD Completed CBC (includes Auto Differential),08/08/16 04:41,CHRISITAN MCCLURE MD Completed Comprehensive Metabolic Panel,08/08/16 04:40,CHRISTIAN [...] LOPEZ RN ED Pain Assessment,08/08/16 06:43,AKBAR LOPEZ RN ED Pain Assessment,08/08/16 05:25,AKBAR LOPEZ INTERIOR DESIGN PROFESSIONAL Pain Assessment,08/08/16 05:02,AKBAR LOPEZ INTERIOR DESIGN PROFESSIONAL Pain Assessment,08/08/16 04:45,AKBAR LOPEZ RN [facility] Nursing Assessment : Triage and 1-2 nursing assessments [place] Disposition : Transfer/Return to Hospital/SNF [place] Total Points with Diagnosis Control : 15 [place] Visit Level : 73035 Level 5 Treatments Prior to Arrival : None AKBAR LOPEZ RN - 08/08/2016 7:06 CDT Source: [facility] POWERCHART Document Id: [id number] CDT!18 documented in this encounter Plan of [...] Color Yellow Colorless POWERCHART Specific 1.020 POWERCHART [place], POCT, U Comment: Reference Range Specific [place]: 1.000-1.035 pH, POCT, Urine 5.5 <5.0 POWERCHART [...] M.D. LAB URINE ORDERABLES Performing Organization Address City/[facility] Phon e Number POWERCHART Lipase (08/08/2016 5:03 [...] M.D. LAB BLOOD ADD-ON Performing Organization Address City/[facility] Phon e Number POWERCHART (ABNORMAL) Automated Differential [...] M.D. LAB BLOOD ADD-ON Performing Organization Address [facility] Phon e Number POWERCHART (ABNORMAL) CBC with Differential (08/08/2016 4:48 AM CDT) Analysis Performed At Patho logist Time Signature Leukocytes 11.5 (H) 3.4 - 10.5 POWERCHART X109L Erythrocytes 5.00 3.90 - POWERCHART 5.03 A0064C Hemoglobin 14.2 12.0 - POWERCHART 15.5 GDL [...] CRP (C-Reactive Protein) (08/08/2016 4:48 AM CDT) P athologist Signature C-Reactive 1.9 <=5.0 MGL POWERCHART Protein (CRP), S Specimen (Source) Anatomical Collection Method Collection Time Re ceived Time Location / / Volume Laterality Blood 08/08/2016 4:48 AM CDT Christian Mcclure Jr., M.D. LAB BLOOD ADD-ON Performing Organization Address City/State/ZIP Code Phon e Number POWERCHART (ABNORMAL) CMP (Comprehensive Metabolic Panel) (08/08/2016 4:48 AM CDT) Patholo gist Method Time Signature Alanine 20 7 [...] MMOLL eGFR Black/ 36 (L) >=60 POWERCHART [place] [id number] 2 Bilirubin, Total, S 0.7 0.1 - 1.0 POWERCHART MGDL Total Protein, S 7.5 6.3 - 7.9 POWERCHART GDL Glucose 173 (H) 70 - 139 POWERCHART MGDL HXeGFR (MDRD) 30 (L) >=60 POWERCHART [id number] 2 Specimen (Source) Anatomical Collection Method Collection Time Re ceived Time Location / / Volume Laterality Blood 08/08/2016 4:48 AM CDT Christian Mcclure Jr., M.D. LAB BLOOD ADD-ON Performing Organization Address City/State/ZIP Code Phon e Number POWERCHART (ABNORMAL) Glucose, POCT (08/08/2016 4:26 AM CDT) athologist Signature Glucose, POCT, 144 (H) 70 - 140 POWERCHART B MGDL Comment: Analyzed By [id number] Webber Performed at Med Surg [address] [place] [address] [place], [place] ??[address] Specimen Anatomical Collection Method Collection Time Receive d Time (Source) Location / / Volume Laterality Blood 08/08/2016 4:26 AM 6 4:26 CDT AM CDT Christian Mcclure Jr., M.D. LAB POCT ORDERABLES-JARON ASHER Performing Organization Address City/State/ZIP Code Phon e Number POWERCHART documented in this encounter Visit Diagnoses Not on filedocumented in this encounter
--- OUTSIDE RECORDS SUMMARY | 2022-09-14 10:13 | XMS_ITS | Encounter Summary ---
:1960 Author Organization [facility] Address [address] [place] [address] Care Team Providers Name Role Phone Unavailable Primary Care Provider Unavailable Encounter Details Date Type Department Care Team Description 07/14/2016 [facility] Pam[facility] Benton A PRN, C.N.P. [address] [place], [place] [phone] (Wo rk) Social History [...] How often do you attend mandaeism or mu-ism services? Patien t refused 06/26/2021 [...] for an annual exam. PCP is at [facility], she reports regular check ups and quarterly lab work there. She has the following issues she would like to discuss: 1. here today for physical and pap smear. Saw Dr. O[place] [facility] in [place] yesterday regarding pelvic pain, mass found on CT, CA125 pending. Is planning ongoing care for this matter at [facility]. 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 Electronically Signed By: PAMELLA FAITH DEPARTMENT MGR On: 07/14/2016 08:46 AM Source: [facility] POWERCHART Document Id: [id number] documented in this encounter Miscellaneous Notes Miscellaneous - Pamella Faith, R.N. - 07/21/2016 12:02 PM CDT Normal Results Letter July 21, 2016 ANGELES ALCANTARA [address] [place] [address] [place] [phone] Dear ANGELES ALCANTARA, Your Pap was normal and you do not carry the virus HPV (Human Papilloma Virus). Your next Pap and HPV test is due in 5 yrs. Please contact me if you have further questions or concerns. Thank you. Result Name Current Result Accession [facility] [id number] 07/14/2016 Final Diagnosis-[place] See Comment 07/14/2016 Signing Path-[place] See Comment 07/14/2016 Cytotech-[place] See Comment 07/14/2016 Spec Desc-[place] See Comment 07/14/2016 Sincerely, PAMELLA FAITH [address] [place] [address] [place] [id number] Electronic Signature Electronically Signed By: PAMELLA FAITH DEPARTMENT MGR On: July 21, 2016 This document has images extracted. Source: [facility] Document Id: [id number] Miscellaneous - Marina Escudero L.P.N. - 07/14/2016 8:51 AM CDT Residential Program Manager Documentation Residential Program Manager Documentation Entered On: 07/14/2016 8:52 CDT Performed On: 07/14/2016 8:51 CDT by MARINA ESCUDERO L.P.N. Residential Program Manager Documentation CD Residential Program Manager Present : Yes CD Residential Program Manager Name : MARINA Ross L.P.N. - 07/14/2016 8:51 CDT Source[facility] Document Id: [id number] CDT!4 Miscellaneous - Pamella Faith R.N. - 07/14/2016 8:16 AM CDT Ambulatory Patient Summary [address] [place] [phone] Visit Information Name: ANGELES ALCANTARA [facility] Number: [id number] Current Date: 07/14/2016 08:16:25 [...] Appointments Date Time Location Provider 07/22/2016 14:00 MARK Sherman MD, Jeovanny Wood Attention: Contact your [...] if you dont have one. Go to [email or web address] and click on Create Your Account. Then, follow the directions to complete the online form. Youll be asked for your [facility] number which you can find at the top of this document. Your Goals/Additional instructions: Source: [facility] [employer] Document Id: [id number] Miscellaneous - Pamella Faith, R.N. - 07/14/2016 8:16 AM CDT Ambulatory Discharge Medication List [address] [phone] Visit Information Name: ANGELES ALCANTARA [facility] Number: [id number] Current Date: 07/14/2016 08:16:25 Attending Provider: PAMELLA FAITH DEPARTMENT MGR Primary Care Provider: PCP, ELSEWHERE ANGELES ALCANTARA PEDRO has been given the following list [...] of emergency. Electronically Signed By: PAMELLA FAITH DEPARTMENT MGR Signed On:14-JUL-2016 08:16:22 Additional Information: Source: [facility] Document Id: [id number] Miscellaneous - Jodee Silva L.P.N. 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 Intake/History Adult Porcelain Finisher Intake/History Entered On: 07/14/2016 8:05 CDT Performed [...] Information Given By : Patient Languages : Nigerien Is Patient Female and 13-50 no hysterectomy [...] SILVA LPN - 07/14/2016 8:03 CDT Source: [facility] POWERCHART Document Id: [id number] CDT!33 documented in this encounter Plan of [...] THIN PREP, PAP (07/14/2016 8:46 AM CDT) [facility] Smart Checkout Method Time Signature Interpretation Performed POWERCHART Comment: Test Performed by: [place] [address] Hob Machine Operator: Jeovanny Snyder II, M.D., Ph.D. Specimen Anatomical Collection Method Collection Time Receive d Time (Source) Location / / Volume Laterality Cervix/Endocervi 07/14/2016 8:46 AM 07/15 7:55 x CDT AM CDT Historical Provider LAB HISTORICAL ORDERS Performing Organization Address City/State/ZIP Code Phon e Number POWERCHART Pathology ThinPrep Screen HPV Reflex (07/14/2016 8:46 AM CDT) [facility] Smart Checkout Method Time Signature HXAccession [id number] POWERCHART [facility] HXFinal See Comment POWERCHART Diagnosis-[place] Comment: A. ??ThinPrep Pap Test Screen (Cervical/ [...] 52, 56, 58, 59, 66, and 68. [facility]-[place] See Comment POWERCHART Comment: RESULT: BROOKE Castellanos(A [facility]) HXSIGNING PATH See Comment POWERCHART Comment: [...]
--- OUTSIDE RECORDS SUMMARY | 2022-09-14 10:13 | XMS_ITS | Encounter Summary ---
:1960 Author Organization [facility] Address [address] [place] [address] Care Team Providers Name Role Phone Unavailable [...] 06/26/2021 relatives? How often do you attend zoroastrian or judaism services? Patien t refused 06/26/2021 Do you belong to any clubs or organizations such as Patient refused 06/26/2021 zoroastrian groups, unions, fraternal or athletic groups, or [...] 08/10/2016 AM CDT 10:[address] [facility] - 08/10/2016 10:09 AM CDT ??08/08/2016 Cytology Non-Gynecological ?? ([id number]) ? Requested By: ??Stefan Fajardo M.D. ??[phone] ? SPECIMEN DESCRIPTION: A. ??Pelvic Wash: ??Received 100cc of b loody fluid ?DIAGNOSIS: A. ??Pelvic Wash: ??Negative for malign denae. ? 08/11/2016 14:10 Interpreted by: ??Antonino Christian M.D., Ph.D. [phone] Report electronically signed by Travis Christian M.D., Ph.D. ?? Transcribed by: ghassan ??08/11/2016 13:08:1 4 ? Procedure Note 01/01/2018 08/08/2016 Cytology Non-Gynecological ( [id number]) Requested By: Stefan Fajardo M.D. [phone] SPECIMEN DESCRIPTION: A. Pelvic Wash: Received 100cc of blood y fluid DIAGNOSIS: A. Pelvic Wash: Negative for malignancy . 08/11/2016 14:10 Interpreted by: Travis Christian M.D., Ph.D. [phone] Report electronically signed by Travis Christian M.D., Ph.D. Transcribed by: ghassan 08/11/2016 13:08:14 Stefan Fajardo M.D. LAB PATHOLOGY/CYTOLOGY ORDER KENDRA Performing Organization Address City/State/ZIP Code Phon e Number [facility] - [address] [place], [place] [address] [facility] Hx general Pathology Report (08/10/2016 7:29 AM CDT) Specimen Anatomical Collection Method Collection Time Receive d Time (Source) Location / / Volume Laterality 08/10/2016 7:29 AM 6 7:29 CDT AM CDT Narrative [facility] - [facility] - 08/10/2016 7:29 AM CDT ??08/08/2016 Surgical Pathology ?([id number]) ? Requested By: Stefan Fajardo M.D. ??[phone] ? SLIDE DISPOSITION: ? DIAGNOSIS: ?? A. ??Ovary and fallopian tube, left, sa lpingo-oophorectomy: ??Ruptured hemorrhagic single cyst. ??Fallopian tu be without diagnostic abnormality. ? B. ??Ovary and fallopian tube, right, s alpingo-oophorectomy: ?? Atrophic ovary and unremarkable fallopi an tube. ? Participated in interpretation: Dr. Rohan Goldberg. Pager: [phone]. ?? As the signing pathologist, I verify th at I have examined all relevant slides/materials for the speci men(s) and rendered or confirmed the diagnosis. ? 08/12/2016 12:51 Interpreted by: Richard Reyes M.D. [phone] Report electronically signed by Richard Reyes M.D. [...] tube are ident ified and submitted. ?? Imaging Engineer sections are submitted f or permanent sections [...] tube has multi ple paratubal cysts. ?? Imaging Engineer sections are submitted f or permanent sections only. ?? Grossed by JOLENE. BLOCK SUMMARY: Part A: ??Left fallopian tube and ovary ?1 Lt cyst wall-1 ?2 Lt cyst wall-2 ?3 Lt ovary ?4 Lt fallopian tube ? ?? Part B: ??Right fallopian tube and ovar y ?1 Rt fallopian tube/ovary ? Procedure Note 01/01/2018 08/08/2016 Surgical Pathology ([id number]) Requested By: Stefan Fajardo M.D. [phone] SLIDE DISPOSITION: DIAGNOSIS: A. Ovary and fallopian tube, left, salp ingo-oophorectomy: Ruptured hemorrhagic single cyst. Fallopian tube without diagnostic abnormality. B. Ovary and fallopian tube, right, balbina pingo-oophorectomy: Atrophic ovary and unremarkable fallopi an tube. Participated in interpretation: Dr. Rohan Goldberg. Pager: [phone]. As the signing pathologist, I verify th at I have examined all relevant slides/materials for the speci men(s) and rendered or confirmed the diagnosis. 08/12/2016 12:51 Interpreted by: Richard Reyes M.D. [phone] Report electronically signed by Richard Reyes M.D. [...] fallopian tube are ident ified and submitted. Imaging Engineer sections are submitted f or permanent sections only. Grossed by JOLENE. B. Received in formalin labeled right fallopian tube and ovary is a 2.7 x 1.7 x 1.5 cm ovary with a 1.6 x 0.5 cm previously ligated fallopian tube. The ovary has a smooth outer surface and solid cut surface. The fallopian tube has multipl e paratubal cysts. Imaging Engineer sections are submitted f or permanent sections [...] City/State/ZIP Code Phon e Number [facility] ER LABORATORIES - [address] [address] [facility] (ABNORMAL) Glucose, POCT (08/09/2016 6:35 AM CDT) [facility] Method Time Signature Glucose, 155 (H) 70 - 140 [facility] ER POCT, B MG/DL LABORATORIES - [facility] Sample Site, Capillary [facility] ER Blood Gas, LABORATORIES - POCT [facility] Last Intake > 4 hours [facility] ER LABORATORIES - [facility] Specimen Anatomical Collection Method Collection Time Receive d Time (Source) Location / / Volume Laterality 08/09/2016 6:35 AM 6:35 CDT AM CDT Historical Provider LAB POCT ORDERABLES-MANUAL Performing Organization Address City/Va Hospital/ZIP Code Phon e Number [facility] ER LABORATORIES - [address] [address] [facility] (ABNORMAL) Creatinine with Estimated GFR (MDRD) (08/09/2016 12:41 AM CDT) [facility] Method [place] Signature Creatinine 1.6 (H) 0.6 - 1.1 [facility] ER MG/DL LABORATORIES - [facility] eGFR 34 (L) >60 [facility] ER Non-Black/Afric ML/MIN/BS LABORATORIES - an Panamanian A [facility] eGFR-Black/Afri 41 (L) >60 [facility] ER can Panamanian ML/MIN/BS LABORATORIES - A [facility] Specimen Anatomical Collection Method Collection Time Receive d Time (Source) Location / / Volume Laterality 08/09/2016 12:41 08/09/2016 AM CDT 12:41 AM CDT Ce Villatoro M.D. LAB BLOOD ADD-ON Performing Organization Address City/State/ZIP Code Phon e Number [facility] ER LABORATORIES - [address] [address] [facility] (ABNORMAL) CBC without Differential (08/09/2016 12:41 AM CDT) [facility] Method Time Signature Hemoglobin 9.9 (L) 12.0 - [facility] ER 15.5 G/DL LABORATORIES - [facility] Hematocrit 29.0 (L) 34.9 - [facility] ER 44.5 % LABORATORIES - [facility] Leukocytes 16.1 (H) 3.5 - [facility] ER 10.5 LABORATORIES - X10(9)/L [facility] Erythrocytes 3.44 (L) 3.90 - [facility] ER 5.03 LABORATORIES - X10(12)/L [facility] MCV 84.3 81.6 - [facility] ER 98.3 FL LABORATORIES - [facility] RBC Distrib 13.1 11.9 - [facility] ER Width 15.5 % LABORATORIES - [facility] Platelet Count 140 (L) 150 - 450 [facility] ER X10(9)/L LABORATORIES - [facility] Specimen Anatomical Collection Method Collection Time Receive d Time (Source) Location / / Volume Laterality 08/09/2016 12:41 08/09/2016 AM CDT 12:41 AM CDT Ce Villatoro M.D. LAB BLOOD ADD-ON Performing Organization Address City/Va Hospital/ZIP Code Phon e Number [facility] ER LABORATORIES - [address] [address] [facility] (ABNORMAL) Glucose, POCT (08/08/2016 9:40 PM CDT) [facility] gist Method Time Signature Last Intake 3-4 hours [facility] [place] Glucose, 167 (H) 70 - 140 [facility] ER POCT, B MG/DL LABORATORIES - [facility] Sample Site, Capillary [facility] ER Blood Gas, LABORATORIES - POCT [facility] Specimen Anatomical Collection Method Collection Time Receive d Time (Source) Location / / Volume Laterality 08/08/2016 9:40 PM 6 9:40 CDT PM CDT Historical Provider LAB POCT ORDERABLES-MANUAL Performing Organization Address City/Va Hospital/ZIP Code Phon e Number [facility] ER LABORATORIES - [address] [address] [facility] (ABNORMAL) Glucose, POCT (08/08/2016 6:04 PM CDT) [facility] gist Method Time Signature Last Intake NPO [facility] ER LABORATORIES [facility] Glucose, 223 (H) 70 - 140 [facility] ER POCT, B MG/DL LABORATORIES - [facility] Sample Site, Capillary [facility] ER Blood Gas, LABORATORIES - POCT [facility] Specimen Anatomical Collection Method Collection Time Receive d Time (Source) Location / / Volume Laterality 08/08/2016 6:04 PM 6 6:04 CDT PM CDT Historical Provider LAB POCT ORDERABLES-MANUAL Performing Organization Address City/State/ZIP Code Phon e Number [facility] ER LABORATORIES - [address] [address] [facility] (ABNORMAL) Glucose, POCT (08/08/2016 3:25 PM CDT) [facility] Method Time Signature Glucose, POCT, 216 (H) 70 - 140 [facility] ER B MG/DL [facility] Specimen Anatomical Collection Method Collection Time Receive d Time (Source) Location / / Volume Laterality 08/08/2016 3:25 PM 6 3:25 CDT PM CDT Historical Provider LAB POCT ORDERABLES-MANUAL Performing Organization Address City/Va Hospital/[facility] Phon e Number [facility] ER LABORATORIES - [address] [address] [facility] (ABNORMAL) Glucose, Whole Blood (08/08/2016 2:22 PM CDT) P athologist Signature Glucose, S 261 (H) 70 - 140 [facility] ER MG/DL [facility] Comment: Drawn in [place] Specimen Anatomical Collection Method Collection Time Receive d Time (Source) Location / / Volume Laterality 08/08/2016 2:22 PM 6 2:[address] [facility] - 08/08/2016 2:30 PM CDT Drawn in [place] Eliu Heard M.D. LAB BLOOD TROPONIN Performing Organization Address City/Va Hospital/[facility] Code Phon e Number [facility] ER LABORATORIES - [address] [address] [facility] (ABNORMAL) Glucose, Whole Blood (08/08/2016 12:45 PM CDT) P athologist Signature Glucose, S 299 (H) 70 - 140 [facility] ER MG/DL [facility] Comment: Drawn in [place] Specimen Anatomical Collection Method Collection Time Receive d Time (Source) Location / / Volume Laterality 08/08/2016 12:45 08/08/2016 PM CDT 12:[address] [facility] - 08/08/2016 1:01 PM CDT Drawn in [place] Stefan Fajardo M.D. LAB BLOOD TROPONIN Performing Organization Address City/Va Hospital/ZIP Code Phon e Number [facility] ER LABORATORIES - [address] [address] [facility] Hemoglobin (08/08/2016 12:45 PM CDT) P athologist Signature Hb 12.1 12.0 - 15.5 [facility] ER G/DL LABORATORIES - [facility] Comment: Drawn in [place] Specimen Anatomical Collection Method Collection Time Receive d Time (Source) Location / / Volume Laterality 08/08/2016 12:45 08/08/2016 PM CDT 12:45 PM CDT Narrative [facility] - [facility] - 08/08/2016 1:01 PM CDT Drawn in [place] Stefan Fajardo M.D. LAB BLOOD ADD-ON Performing Organization Address City/State/ZIP Code Phon e Number [facility] ER LABORATORIES - [address] [place], [place] [address] [facility] DX Chest AP or PA [...] MD [phone] 08-Aug-2016 09:34 Ce Villatoro M.D. IMG DIAGNOSTIC IMAGING PROCE DURTHONG CT Abdomen Pelvis without IV Contrast (08/08/2016 [...] Electronically signed by: ?? Reta James MD [phone] 05:51 I have reviewed the films/images and agr ee with the above interpretation. Electronically signed by: ?? Vinita Cadet ??Gayle [id number] 08-Aug-2016 10:4 3 Narrative 08/08/2016 10:43 AM [...] spine. Electronically signed by: Reta James MD [phone] 05:51 I have reviewed the films/images and agr ee with the above interpretation. Electronically signed by: Vinita Cadet M.D. [phone] 08-Aug-2016 10:43 German Mcclure Jr., M.D. IMG CT PROCEDURES documented in this encounter Visit Diagnoses Not on filedocumented in this encounter
--- OUTSIDE RECORDS SUMMARY | 2022-09-14 10:13 | XMS_ITS | Encounter Summary ---
:1960 Author Organization [facility] Address [address] [place] [address] Care Team Providers Name Role Phone Unavailable Primary Care Provider Unavailable Encounter Details Date Type Department Care Team Description 07/13/2016 Hospital En[facility] Ashley Melton M.D. Social History Tobacco Use Types Packs/Day [...] 06/26/2021 relatives? How often do you attend anglican or judaism services? Patien t refused 06/26/2021 Do you belong to any clubs or organizations such as Patient refused 06/26/2021 anglican groups, unions, fraternal or athletic groups, or [...] Coding Summary-Paper Based CODING DATE: 07/24/2016 FINAL [facility] STATUS: * Discharged to Home or [...] result in slightly different terminology. Coded By: JEFRY VAZQUEZ Date Saved: 07/24/2016 11:19 am Source: [facility] Document Id: [id number] documented in this encounter Plan of Treatment Not on filedocumented as of this encounter Visit Diagnoses Not on filedocumented in this encounter
--- OUTSIDE RECORDS SUMMARY | 2022-09-14 10:13 | XMS_ITS | Encounter Summary ---
:1960 Author Organization [facility] Address [address] [place] [address] Care Team Providers Name Role Phone Unavailable Primary Care Provider Unavailable Encounter Details Date Type Department Care Team Description 08/11/2016 Hospital Encounter HX [facility] ED Suzanne Cavanaugh, P.A.-C. [id number] [place] [phone] (Wo rk) Social History Tobacco Use [...] How often do you attend methodist or scientology services? Patien t refused 06/26/2021 Do you [...] in this encounter Discharge Summaries Anthony Terrell R.N. - 08/11/2016 9:54 AM CDT ED Discharge Instructions [address] [address] Name: ANGELES MORALES Date of : 1960 12:00 AM Visit Date: 08/11/2016 7:33 AM [facility] Number: [id number] Address: [address] [place] [phone] Primary Care Provider: PCP, VICTORIA IMPORTANT: [facility] in [place] would like to thank you for allowing [...] stop this may not be recommended. Certain vvil-zkv-yllrwmx medications can help soothe stomach upset. ?? [...] ?? Severe weakness, dizziness or lightheadedness ?? [id number] [facility], [address] [place] [address], [place] [address]. All rights reserved. This information is not [...] if you dont have one. Go to [email or web address] and click on Create Your Account. Then, follow the directions to complete the online form. Youll be asked for your [facility] number which you can find [...] document has images extracted. Please consider using [employer] for all your patient education needs. Source: [employer] Document Id: [id number] Anthony Terrell R.N. - 08/11/2016 9:54 AM CDT ED Depart Summary [facility] Emergency Department Clinical Discharge Summary PERSON INFORMATION Name ANGELES MORALES Age 55 Years 1960 12:00 AM Sex Female Language Cook Islander PCP PCP, ELSEWHERE Marital Status Visit Id Visit Reason Nausea; nausea Specialty Enc Type Emergency Med Service Emergency Medicine Referred by Track Group [facility] ED Discharge 08/11/2016 9:50 AM Tracking Id [id number] Checkout 08/11/2016 9:50 AM Checkin 08/11/2016 7:33 AM Acuity 3 -Urgent Dispo Type * Discharged to Home or Self Care Arrival 08/11/2016 7:33 AM Reg Status Complete LOS 000 02:17 Address: [address] [place] [phone] Comment: PROVIDER INFORMATION Provider Role Provider Contact Time ANTHONY TERRELL WOOL SPOTTER Nurse 08/11/16 07:40 ARA CAVANAUGH PA-C ED Provider 08/11/16 07:43 CALISTA CAMACHO WOOL SPOTTER Nurse 08/11/16 08:32 DIAGNOSIS Anemia NOS; Nausea NOS Comment: PATIENT EDUCATION INFORMATION Instructions: VOMITING AND DIARRHEA, Nonspecific (Adult) Follow up: [facility] Document Id: [id number] documented in this encounter Medications at Time [...] TERRELL RN - 08/11/2016 9:53 CDT Source: [employer] Document Id: [id number] CDT!3 Anthony Terrell R.N. - 08/11/2016 9:52 [...] TERRELL RN - 08/11/2016 9:52 CDT Source: [employer] Document Id: [id number] CDT!7 Anthony Terrell R.N. - 08/11/2016 9:29 AM CDT ED Nurse Reassess ED Nurse Reassess Entered On: 08/11/2016 9:31 CDT Performed On: 08/11/2016 9:29 CDT by ANTHONY TERRELL RN Pain Assessment Pain Symptoms : No ANTHONY TERRELL RN - 08/11/2016 9:29 CDT GI Reassess GI Patient Stated Symptoms : Nausea, Other: Nausea is improving from the time patient came into the ED. ANTHONY TERRELL RN - 08/11/2016 9:29 CDT [facility]: [facility] Document Id: [id number] CDT!5 Ara Cavanaugh P.A.-C. - 08/11/2016 8:12 [...] been selected or recorded.. Surgical history: Colonoscopy ([id number]) on 07/22/2016 at 55 Years. Pap smear ([id number]) on 03/11/2014 at 53 Years. Ablation ([id number]) in 2005 at 45 Years. Comments: 06/11/2011 10:39 - ANGELA LEONARD CHICKEN SEXER Uterine. Family history: No family history items [...] benign. Ecchyomosis was present on discharge from [facility]. Pt's nausea improved in ED after phenergan. [...] 8 mg, 2 tab(s), PO, Once Deleted [place] 5 mg-325 mg oral tablet: 1 tab(s), [...] 10(9)/L HI Lymph Absolute 0.80 x10(9)/L LOW Luna Absolute 0.60 x10(9)/L Eos Absolute 0.10 x10(9)/L Baso Absolute 0.03 x10(9)/L CBC Comment slide reviewed . Impression and Plan Diagnosis Nausea NOS (Discharge, Medical) Anemia NOS (Discharge, Medical) Plan Condition: Improved. Prescriptions: Prescription [employer] Professor Pharmacy: Zofran ODT 8 mg oral tablet, [...] AM This document has images extracted. Source: [facility] POWERCHART Document Id: [id number]} Anthony Terrell, RSukhiN. - 08/11/2016 8:00 AM CDT ED Primary [...] PNED ; Probability: 0 ; Diagnosis Code: [id number] Triage Chief Complaint Description : See triage note Mode of Arrival ED : Private vehicle Track : Medical Languages : Cook Islander Treatments Prior to Arrival : Acetaminophen Is Patient Female and 13-50 no hysterectomy : ANTHONY Hatfield RN - 08/11/2016 8:00 CDT Pain Assessment Pain Symptoms : ANTHONY Hatfield RN - 08/11/2016 8:00 CDT ED Physician Notification Time ED Physician Notification Time : 08/11/2016 7:47 CDT ANTHONY TERRELL RN - 08/11/2016 8:00 CDT Respiratory Airway : Patent Respirations : Unlabored Respiratory Pattern : Regular ANTHONY TERRELL RN - 08/11/2016 8:00 CDT Cardiovascular Heart Rhythm : Regular Skin Color : Normal for ethnicity Skin Description : Dry Skin Temperature : Warm ANTHONY TERRELL RN - 08/11/2016 8:00 CDT Neurological Last Well Time Known : Not applicable Level of Consciousness : Alert Orientation : Oriented x 3 Characteristics of Speech : Appropriate for age ANTHONY TERRELL RN - 08/11/2016 8:00 CDT ED Psychosocial Affect/Behavior : Calm, Cooperative Domestic Abuse Concerns : None Behavioral Health Screen/Safety Assmt : No ANTHONY TERRELL RN - 08/11/2016 8:00 CDT Gastrointestinal Nutrition [...] No Alcohol Use for AUDIT tool : ANTHONY Hatfield RN - 08/11/2016 8:00 CDT Alcohol Use Grid Alcohol Use : No ANTHONY TERRELL RN 08/11/2016 8:00 CDT Recreational Drug Use Grid Drug Use : None ANTHONY TERRELL RN - 08/11/2016 8:00 CDT Source: [facility] [email or web address] Document Id: [id number] CDT!48 Anthony Terrell R.N. - 08/11/2016 7:41 [...] Medical ; Code: Z12.11 ; Contributor System: [employer] ; Last Updated: 07/13/2016 15:08 CDT ; Life Cycle Date: 07/13/2016 ; Life Cycle Status:Active ; Responsible Provider: PALMIRA COHN MD; Vocabulary: ICD-10-CM Screening Mammogram Breast Ca (ICD-10-CM :Z12.31 ) Name of Problem: Screening Mammogram Breast Ca ; Recorder: PALMIRA COHN MD; Confirmation: Confirmed ; Classification: Medical ; Code: Z12.31 ; Contributor System: Charge Payment ; Last Updated: 07/13/2016 15:06 CDT ; Life Cycle Date: 07/13/2016 ; LifeCycle Status: Active ; Responsible Provider: PALMIRA COHN MD; Vocabulary: ICD-10-CM Diagnoses(Active) Nausea Date: 08/11/2016 ; Diagnosis Type: Reason For Visit ; Confirmation: Complaint of ; Clinical Dx: Nausea ; Classification: Medical ; Clinical Service: Emergency medicine ; Code: PNED ; Probability: 0 ; Diagnosis Code: [id number] Triage Chief Complaint Description : Patient had abdominal surgery on Sat. and was feeling fine until Mon. night. Patient started to experiance nausea. Information Given By : Patient, Significant other Present in Room During Exam/Procedure : Significant other Mode of Arrival ED : Private vehicle Track : Medical Languages : Cook Islander Vital Signs Assessed : Yes GCS Assessed [...] ANTHONY TERRELL RN - 08/11/2016 7:41 CDT [place] Coma Eye Opening Response Kaylin : Spontaneously Best Verbal Response Kaylin : Oriented Best Motor Response [place] : Obeys simple commands [place] Coma Score : 15 ANTHONY TERRELL RN [...] Acuity : 3 -Urgent Tracking Group : [facility] ED ANTHONY TERRELL RN - 08/11/2016 7:41 [...] TERRELL RN - 08/11/2016 7:41 CDT Source: [employer] Document Id: [id number] CDT!51 documented in this encounter Miscellaneous Notes Miscellaneous - Anthony Terrell R.N. - 08/11/2016 9:53 AM CDT Valuables/Belongings Valuables/Belongings Entered On: 08/11/2016 9:53 CDT Performed On: 08/11/2016 9:53 CDT by ANTHONY TERRELL RN Valuables/Belongings Belongings Sent Home With : Everthing sent with patient Home Medication Disposition : None brought in with patient ANTHONY TERRELL RN - 08/11/2016 9:53 CDT Source: [employer] Document Id: [id number] CDT!4 Miscellaneous - Conversion, Historical Provider Ser - 08/11/2016 9:50 AM CDT Coding Summary-Paper Based CODING DATE: 08/18/2016 FINAL [facility] STATUS: * Discharged to Home or Self [...] SILVA Date Saved: 08/18/2016 12:24 pm Source: [employer] Document Id: [id number] Miscellaneous - Anthony Terrell R.N. - 08/11/2016 [...] Control : 7 Lynx Visit Level : 62330 Level 3 Treatments Prior to Arrival : Acetaminophen ANTHONY TERRELL RN - 08/11/2016 9:53 CDT Source: [facility] POWERCHART Document Id: [id number] CDT!18 documented in this encounter Plan of [...] (ABNORMAL) Automated Differential (08/11/2016 8:14 AM CDT) [facility] Method Time Signature Absolute 7.25 (H) 1.70 [...] P.A.-C. LAB BLOOD ADD-ON Performing Organization Address City/State/[facility] Code Phon e Number POWERCHART (ABNORMAL) CBC with Differential (08/11/2016 8:14 AM CDT) [facility] Method Time Signature Erythrocytes 3.49 (L) 3.90 - POWERCHART 5.03 [id number] Hemoglobin 10.0 (L) 12.0 - POWERCHART 15.5 [...]
--- OUTSIDE RECORDS SUMMARY | 2022-09-14 10:13 | XMS_ITS | Encounter Summary ---
:1960 Author Organization [facility] Address [address] [place] [address] Care Team Providers Name Role Phone Unavailable Primary Care Provider Unavailable Encounter Details Date Type Department Care Team Description 07/19/2007 Hospital Encounter HX [facility] INPT/OBSRV Na Galvan M.D. [address] [place], [place] [address] (Wo rk) Social History [...] 06/26/2021 relatives? How often do you attend lutheran or mormonism services? Patien t refused 06/26/2021 Do you belong to any clubs or organizations such as Patient refused 06/26/2021 lutheran groups, unions, fraternal or athletic groups, or [...] or slept in a snf (including now)? Sex Assigned at Date Recorded Not on file documented as of this encounter Plan of Treatment Not on filedocumented as of this encounter Visit Diagnoses Not on filedocumented in this encounter
--- OUTSIDE RECORDS SUMMARY | 2022-09-14 10:13 | XMS_ITS | Encounter Summary ---
:1960 Author Organization [facility] Address [address] [place] [address] Care Team Providers Name Role Phone Unavailable [...] How often do you attend sikhism or adventism services? Shelli t refused 06/26/2021 Do you [...]
--- OUTSIDE RECORDS SUMMARY | 2022-09-14 10:13 | XMS_ITS | Encounter Summary ---
:1960 Author Organization [facility] Address [address] [place] [address] Care Team Providers Name Role Phone Unavailable [...] 06/26/2021 relatives? How often do you attend uatsdin or druze services? Patien t refused 06/26/2021 Do you belong to any clubs or organizations such as Patient refused 06/26/2021 uatsdin groups, unions, fraternal or athletic groups, or [...]
[2022-09-14 14:07] LABS: Basophils Absolute Auto 0.08 K/uL (0.00-0.30); Basophils Percent Auto 0.9 % (0.0-3.0); Eosinophils Absolute Auto 0.27 K/uL (0.00-0.50); Eosinophils Percent Auto 3.2 % (0.0-7.0); Hematocrit 43.2 % (33.0-51.0); Hemoglobin* 14.5 gm/dL (12.0-16.0); Immature Granulocytes Abs Auto 0.01 K/uL (0.00-0.30); Immature Granulocytes Pct Auto 0.1 %; Lymphocytes Percent Auto 12.7 % (20-44); Mean Corpuscular HGB Conc 34 gm/dL (32-36); Mean Corpuscular Hemoglobin 29 pg (26-34); Mean Corpuscular Volume 85 fL (80-100); Monocytes Percent Auto 10.7 % (0.0-11.0); Neutrophils Percent Auto 72.4 % (42.0-72.0); Platelet Count* 119 K/uL (140-440); RDW Coefficient of Variation % 12.8 % (11.5-15.5); Red Blood Count 5.09 m/uL (4.00-5.20); White Blood Count* 8.49 K/uL (4.50-11.00)
[2022-09-14 14:16] LABS: Slide Review Reflex No
[2022-09-14 14:31] LABS: SARS PCR* Negative SARS-CoV-2 (Negative)
== END 2022-09-14 09:35 | disposition home or self-care (01) ==
PROVIDERS: PCP Nurse Practitioner Family; Visit Provider Nurse Practitioner Family
DX: Z20.822 Contact with and (suspected) exposure to COVID-19 (principal); R06.2 Wheezing; R05.9 Cough, unspecified
CPT/HCPCS: 85025; 87635

== ENCOUNTER 2022-10-29 09:03 | Outpatient (CLI) | payer OTHER, SELFPAY ==
--- NOTE | 2022-10-29 09:15 | CRLHL7_ITS ---
For Patients: As a result of the Century Cures Act, medical imaging exams and procedure reports are released immediately into your electronic medical record. You may view this report before your referring provider. If you have questions, please contact your health care provider. BILATERAL SCREENING MAMMOGRAM WITH COMPUTER-AIDED DETECTION AND TOMOSYNTHESIS TECHNIQUE: CC and MLO views were obtained. These mammographic images have been obtained using full-field digital technique. These mammographic images were interpreted with the benefit of computer-aided detection. Breast Tomosynthesis was used in this interpretation. COMPARISON FILM: 04/05/20, 02/09/19, 02/08/18. FINDINGS: There are scattered areas of fibroglandular density IMPRESSION: There is no radiographic evidence for malignancy. ASSESSMENT: BI-RADS Category 1: Negative RECOMMENDATION: Routine screening mammogram in 1 year. A lay language report of this examination will be provided to the patient. Ovidio Cullen M.D. Diagnostic Radiologist [email or web address] DAVID/Dictated by: Ovidio Cullen MD @ 10/29/2022 11:06:00 AM (Electronically Signed)
== END 2022-10-29 09:04 | disposition home or self-care (01) ==
LOC: MAMMO 09:05
PROVIDERS: PCP Nurse Practitioner Family; Visit Provider Nurse Practitioner Family
DX: Z12.31 Encounter for screening mammogram for malignant neoplasm of breast (principal)
CPT/HCPCS: 77063; 77067

== ENCOUNTER 2023-04-27 11:56 | Outpatient (CLI) | payer OTHER, SELFPAY | END 2023-04-27 11:57 | disposition home or self-care (01) | LOC: KYNREF 11:58 | PROVIDERS: PCP Nurse Practitioner Family; Visit Provider Nurse Practitioner Family | DX: M54.9 Dorsalgia, unspecified (principal); R10.9 Unspecified abdominal pain | CPT/HCPCS: 80048; 81015; 87086 ==

== ENCOUNTER 2023-06-01 08:12 | Outpatient (CLI) | payer OTHER, SELFPAY | END 2023-06-01 08:13 | disposition home or self-care (01) | LOC: INJ CL 08:13 | PROVIDERS: PCP Nurse Practitioner Family; Visit Provider Family Medicine | DX: M54.16 Radiculopathy, lumbar region (principal); M51.36 Other intervertebral disc degeneration, lumbar region; M51.26 Other intervertebral disc displacement, lumbar region | CPT/HCPCS: 62323; J0702 ==

== ENCOUNTER 2023-06-30 13:00 | Outpatient (RCR) | payer OTHER, SELFPAY | END 2023-08-04 09:17 | disposition home or self-care (01) | PROVIDERS: PCP Nurse Practitioner Family; Visit Provider Nurse Practitioner Family | DX: M54.50 Low back pain, unspecified (principal); M25.60 Stiffness of unspecified joint, not elsewhere classified; M79.605 Pain in left leg; M62.81 Muscle weakness (generalized); Z51.89 Encounter for other specified aftercare | CPT/HCPCS: 97110; 97140; 97161 ==

== ENCOUNTER 2023-08-09 08:32 | Outpatient (CLI) | payer OTHER, SELFPAY | END 2023-08-09 08:33 | disposition home or self-care (01) | PROVIDERS: PCP Nurse Practitioner Family; Visit Provider Nurse Practitioner Family | DX: E78.5 Hyperlipidemia, unspecified (principal); I10 Essential (primary) hypertension; N18.4 Chronic kidney disease, stage 4 (severe); E11.9 Type 2 diabetes mellitus without complications; E66.9 Obesity, unspecified | CPT/HCPCS: 80053; 80061; 82043; 82570; 84443 ==

== ENCOUNTER 2023-11-04 13:34 | Outpatient (CLI) | payer OTHER, SELFPAY ==
--- OUTSIDE RECORDS SUMMARY | 2023-11-04 13:37 | XMS_ITS | Clinical Summary ---
Author Name Unknown Organization [facility] Address [place], [place] [address] Care Team Providers Care Car Top Bolter Name Role Phone Pcp, No Primary Care Provider Unavailabl e Allergies Active Allergy Reactions Criticality Noted Date Comments Amoxicillin-Pot Clavulanate Hives 12/10/2015 per external records Aspirin Other - Describe In Comment Field 08/25/2019 Risk for Interaction Risk for Interaction Lisinopril Cough 12/10/2015 Nsaids (Non-Steroidal Anti-Inflammatory Drug) Other - Describe In Comment Field 07/11/2016 Medications Medication Sig Dispensed Refills Start Date End Date Status atorvastatin (LIPITOR) 10 mg tablet Take 10 mg by mouth. 0 11/25/2019 Acti ve chlorthalidone (HYGROTON) 50 mg tablet Take 50 mg by mouth. 0 11/25/2019 Acti ve cholecalciferol (VITAMIN D3) 2,000 unit capsule Take 1 Cap by mouth. 0 2015 Ac tive glipiZIDE (GLUCOTROL) 10 mg tablet Take 10 mg by mouth. 0 07/11/2016 Acti ve Insulin Admin Supplies inpn 0 02/12/2015 Active Insulin Admin Supplies (INPEN, FOR NOVOLOG OR FIASP,) inpn 0 02/12/2015 Active insulin aspart U-100 (NOVOLOG FLEXPEN U-100 INSULIN) 100 unit/mL (3 mL) solution for injection Inject 5 units subcutaneously with lunch and dinner 0 11/25/2019 Active insulin glargine (LANTUS) 100 unit/mL injection Inject 38 Units subcutaneous. 0 07/14/2019 Active insulin glargine (LANTUS SOLOSTAR PEN; BASAGLAR KWIKPEN) 100 unit/mL (3 mL) pen 40 units at bedtime 0 04/14/2015 Active loratadine (CLARITIN) 5 mg/5 mL liquid if needed 0 Active LORazepam (ATIVAN) 0.5 mg tab Take 0.5 mg by mouth. 0 03/06/2020 Act nahomy metoprolol succinate (TOPROL XL) 50 mg sustained-release tablet Take 50 mg by mouth. 0 08/08/2016 Acti ve SITagliptin (JANUVIA) 50 mg tablet Take 50 mg by mouth. 0 07/11/2016 Acti ve traZODone (DESYREL) 50 mg tablet Take 50 mg by mouth. 0 11/25/2019 Acti ve Active Problems No known active problems Social History Tobacco Use Types Packs/Day Years Used Date Smoking Tobacco: Former Cigarettes 0.3 2 Smokeless Tobacco: Never Tobacco Cessation:Counseling Given: Yes Alcohol Use Standard Drinks/Week Comments Not Currently 0 (1 standard drink = 0.6 oz pur e alcohol) Social Connections Answer Date Recorded Frequency of Communication with Friends and Fami ly Not on file 06/01/2023 Financial Resource Strain Answer Date R ecorded Difficulty of Paying Living Expenses Not on file 10/11/2021 Difficulty of Paying Living Expenses Not on file 10/11/2021 Sex and Gender Information Value Date Recorded Sex Assigned at Not on file Gender Identity Not on file Sexual Orientation Not on file Obstetrics History Last Filed Vital Signs Vital Sign Reading Time Taken Comments Blood Pressure 110/72 05/27/2020 10:44 AM CDT Pulse 57 05/27/2020 10:44 AM CDT Temperature 37.1 ??C (98.8 ??F) 03/29/2020 9:12 AM CD T Respiratory Rate 18 03/29/2020 9:12 AM CDT Oxygen Saturation 95% 05/27/2020 10: 44 AM CDT Inhaled Oxygen Concentration - - Weight 96.1 kg (211 lb 12.8 oz) 020 10:44 AM CDT Height - - Body Mass Index - - Plan of Treatment Health Maintenance Due Date Last Done Comments Tdap 1972 Depression screening for age 12+ 1973 HIV for age 15-65 1976 BMI (ht and wt on same day) for age 18+ 12/19/1979 Hepatitis C screening for age 18-79 12/19/1979 Tetanus booster 1981 Colonoscopy through age 75 2006 Lipids for age 45-75 2006 Mammogram for age 45-75 2006 Zoster (shingles) series for age 50+ (1 of 2) 12/19/2011 COVID-19 vaccine series (2022- season) 2023 07/04/2022, 08/05/2021, 01/09/2021, Additional history exists Influenza for age 50-64 06/11/2023 Pap test for age 21-65 06/20/2023 0, 06/20/2020, 03/23/2014, Additional history exists Pneumococcal series for age 6-64 Aged Out No longer eligible based on patient's age to complete this topic Care Teams Car Top Bolter Relationship Specialty Start Date End Date Pcp, No . PCP - General 03/29/20
--- OUTSIDE RECORDS SUMMARY | 2023-11-04 13:37 | XMS_ITS | Clinical Summary ---
Author Name Unknown Organization [facility] Address [address] [place] [id number] Phone [email or web address] Care Team Providers Care Cleaner Window Name Role Phone Unavailable Primary Care Provider Unavailabl e Allergies Active Allergy Reactions Criticality Noted Date Comments Adhesive 08/09/2023 Amoxicillin Rash Low 08/09/2023 Aspirin 08/25/2019 Other Reaction(s): Altered Sense of Taste, Other - Describe In Comment Field Risk for Interaction Risk for Interaction Clavulanic Acid 08/09/2023 Clopidogrel 08/09/2023 Ibuprofen 08/09/2023 Lisinopril 12/10/2015 Other Reaction(s): Cough, Dry cough Nsaids 07/11/2016 Other Reaction(s): Other - Describe In Comment Field Promethazine 08/09/2023 Medications Medication Sig Dispensed Refills Start Date End Date Status traZODone (DESYREL) 50 MG tablet 0 09/06/2023 Active Januvia 50 MG tablet 0 10/01/2023 Acti ve metoprolol succinate XL (TOPROL-XL) 50 MG 24 hr tablet 0 10/27/2023 Active HumaLOG KWIKPEN 100 UNIT/ML solution pen-injector 0 10/01/2023 Active Lantus SoloStar 100 UNIT/ML injection 0 11/01/2023 Active glipiZIDE (GLUCOTROL) 10 MG tablet 0 09/06/2023 Active chlorthalidone (HYGROTON) 25 MG tablet 0 10/06/2023 Active atorvastatin (LIPITOR) 10 MG tablet 0 10/29/2023 Active amLODIPine (NORVASC) 5 MG tablet 0 10/27/2023 Active Encounters Date Type Department Care Team Description 11/03/2023 12:00 PM COMPOSITION INSTRUCTOR Office Visit [employer] [facility] [place] [address] [place] [address] Lucita, Jonee, OD Type 2 diabetes mellitus without retinopathy (CMS/HCC) (Primary Dx); Presbyopia; Squamous blepharitis of upper and lower eyelids of both eyes; Dry eyes from Last 3 Months Family History Medical History Relation Name Comments Macular degeneration Father Relation Name Status Comments Father Social History Tobacco Use Types Packs/Day Years Used Date Smoking Tobacco: Never Smokeless Tobacco: Never Sex and Gender Information Value Date Recorded Sex Assigned at Not on file Gender Identity Not on file Sexual Orientation Not on file Plan of Treatment Health Maintenance Due Date Last Done Comments Dental Cleaning/Exam 1960 HIV Screening 1960 Hepatitis C Screening 1960 Diabetic Comprehensive Foot Exam 12/19/1971 Diabetic Urine Microalbumin 12/19/1971 Hemoglobin A1C Testing 12/19/1971 Cervical Cancer Screening 1977 Annual Preventive Exam 12/19/1979 Hep B Infection Screening - Surface Antigen 12/19/1979 Breast Cancer Screening 12/19/1991 Colorectal Cancer Screening 12/19/1991 Pneumococcal: Ped (0 to 5 Yrs) and At-Risk Member (6 to 64 Yrs) (3 - PPSV23 or PCV20) 10/06/2021 02/08/2018, 10/06/2016 RSV Immunization >= 60 yrs old (1 - 1-dose 60+ series) 2021 Covid-19 Immunization (2022- season) 2023 07/04/2022, 08/05/2021, 01/09/2021, Additional history exists Diabetic Retinal Eye Exam 11/03/2024 11/03/2023 Tetanus (Tdap or Td) Immunization 08/12/2025 08/12/2015, 07/14/2005 Zoster Immunization Completed 11/12/2020, 0 Influenza Immunization Completed 3, 08/30/2020, 08/06/2020, Additional history exists HIB Immunization Aged Out No longer e ligible based on patient's age to complete this topic HPV Immunization Aged Out No longer e ligible based on patient's age to complete this topic Hepatitis A Immunization Aged Out No longer eligible based on patient's age to complete this topic Hepatitis B Immunization Aged Out No longer eligible based on patient's age to complete this topic Polio Immunization Aged Out No longer eligible based on patient's age to complete this topic
--- OUTSIDE RECORDS SUMMARY | 2023-11-04 13:37 | XMS_ITS | Encounter Summary ---
Author Name Unknown Organization [facility] Address [address] [place], [place] [id number] Phone [email or web address] Care Team Providers Care Marklogic Developer Name Role Phone Unavailable Primary Care Provider Unavailabl e Reason for Referral * Vendor Referral (Routine) - Pending Review Specialty Diagnoses / Procedures Referred By Mignon machuca Referred To Contact Behavioral Health Diagnoses Presbyopia Procedures Vendor Referral to Optometry Candice Landrum OD [address] [place] [address] [employer] [facility] [address] [place] [address] Referral ID Status Reason Start Date Expiration Date V isits Requested Visits Authorized [id number] Pending Review 11/03/2023 05/01/2024 1 1 ORT ENGINEER Reason for Visit * Reason Comments Diabetic Eye Exam OP Encounter Details Date Type Department Care Team (Late st Contact Info) Description 11/03/2023 12:00 PM AIRPORT ENGINEER Office Visit [employer] [facility] [place] [address] [place] [address] Candice Landrum OD [address] [place] [address] Type 2 diabetes mellitus without retinopathy (CMS/HCC) (Primary Dx); Presbyopia; Squamous blepharitis of upper and lower eyelids of both eyes; Dry eyes Social History Tobacco Use Types Packs/Day Years Used Date Smoking Tobacco: Never Smokeless Tobacco: Never Sex and Gender Information Value Date Recorded Sex Assigned at Not on file Gender Identity Not on file Sexual Orientation Not on file documented as of this encounter Progress Notes * Candice Landrum, OD - 11/03/2023 12:00 PM CST Subjective: Angeles Morales is a 62 y.o. female. Chief Complaint Diabetic Eye Exam OP HPI Diabetic Eye Exam OP Diabetes characteristics include Type 2, on insulin and taking oral medications. Comments Crusty eyelids in the morning x a few months. Pt hasn't tried any eyedrops. Type II DM x 10 years. Last A1c: 7.0%. Denies vision changes, using reading only glasses and sunglasses that are distance only. Last edited by Candice Landrum, OD on 11/03/2023 12:32 PM. ROS Positive for: Endocrine (Type II DM), Cardiovascular (HTN) Negative for: Constitutional, Gastrointestinal, Neurological, Skin, Genitourinary, Musculoskeletal,HENT, Eyes, Respiratory, Psychiatric, Allergic/Imm, Heme/Lymph Last edited by Candice Landrum, OD on 11/03/2023 12:03 PM. Visual Acuity Visual Acuity (Snellen - Linear) Right Left Dist sc 20/20 -1 20/40 -1 Pupils Pupils Pupils APD Right PERRL None Left PERRL None Extraocular Movement Extraocular Movement Right Left Full, Ortho Full, Ortho Confrontational Visual Sanford Visual Sanford (Counting fingers) Left Right Full Full Tonometry Tonometry (Applanation, 1:39 PM) Right Left Pressure 15 15 Manifest Refraction Manifest Refraction Sphere Cylinder [place] Dist VA Add Near VA Right +0.50 -0.25 086 20/20 +2.25 J1 Left +1.25 -0.75 030 20/20 +2.25 J1 Eyeglass Final Rx Eyeglass Final Rx Sphere Cylinder [place] Dist VA Add Near VA Right +0.50 -0.25 086 20/20 +2.25 J1 Left +1.25 -0.75 030 20/20 +2.25 J1 Expiration Date: 11/03/2025 Dilation Dilation Deferred DFE, performed optomap today Main Ophthalmology Exam External Exam Right Left External Normal Normal Slit Lamp Exam Right Left Lids/Lashes 1+ Blepharitis, mild floppy lids 1+ Blepharitis, mild floppy lids Conjunctiva/Sclera 1+ Papilla 1+ Papilla Cornea LASIK scar, 1+ Punctate epithelial erosions LASIK scar, 1+ Punctate epithelial erosions Anterior Chamber Deep and quiet Deep and quiet Iris Round and reactive, no neovascularization Round and reactive, no neovascularization Lens Clear Clear Anterior Vitreous Normal Normal Fundus Exam Right Left Disc Normal, no neovascularization Normal, no neovascularization C/D Ratio 0.15 0.2 Macula Flat and Intact, no clinically significant macular edema Flat and Intact, no clinically significant macular edema Vessels Normal Normal Periphery Normal, no neovascularization Normal, no neovascularization <div id=[email or web address]></div> Angeles was seen today for diabetic eye exam op. Diagnoses and all orders for this visit: Type 2 diabetes mellitus without retinopathy (CMS/HCC) (Primary) Presbyopia - Vendor Referral to Optometry Squamous blepharitis of upper and lower eyelids of both eyes Dry eyes Discussed importance of proper blood sugar, blood pressure, and lipid control. Ed pt on all findings, nature of findings and effects of diabetes on ocular health. RTC 1 year for diabetic eye exam. Ed pt on all exam findings, nature of findings. Discussed adaptation to Rx. Glasses Rx released fordistance vision only/near vision only. Pt has LASIK IN 2000. RTC 1 year CEE. Ed on all exam findings, nature of findings. Ed on use of warm compressed for 5- 10 min twice daily,followed by lid cleaning/scrubs. Ed on chronic nature of problem. Recommend use of artificial tearstwice a day. Sampled ocusoft lid wipes in office today. Monitor, RTC PRN for problems, otherwise 1 year for CEE. Ed pt on all exam findings, nature of findings. Recommend use of artificial tears twice a day in both eyes. Recommend Systane Ultra. Monitor, RTC 1 year CEE, or sooner as needed. Return in about 1 year (around 11/03/2024), or if symptoms worsen or fail to improve, for Eye exam. Candice Landrum OD ORT ENGINEER documented in this encounter Plan of Treatment Not on file documented as of this encounter Visit Diagnoses Diagnosis Type 2 diabetes mellitus without retinopathy (CMS/HCC)- Primary Presbyopia Squamous blepharitis of upper and lower eyelids of both eyes Dry eyes Unspecified tear film insufficiency documented in this encounter
--- NOTE | 2023-11-04 13:40 | CRLHL7_ITS ---
For Patients: As a result of the Century Cures Act, medical imaging exams and procedure reports are released immediately into your electronic medical record. You may view this report before your referring provider. If you have questions, please contact your health care provider. BILATERAL SCREENING MAMMOGRAM WITH COMPUTER-AIDED DETECTION AND TOMOSYNTHESIS TECHNIQUE: CC and MLO views were obtained. These mammographic images have been obtained using full-field digital technique. These mammographic images were interpreted with the benefit of computer-aided detection. Breast Tomosynthesis was used in this interpretation. COMPARISON FILM: 10/29/22, 04/05/20, 02/09/19. FINDINGS: There are scattered areas of fibroglandular density. IMPRESSION: There is no radiographic evidence for malignancy. ASSESSMENT: BI-RADS Category 1: Negative RECOMMENDATION: Routine screening mammogram in 1 year. A lay language report of this examination will be provided to the patient. Ovidio Cullen M.D. Diagnostic Radiologist [email or web address] SP/Dictated by: Ovidio Cullen MD @ 11/05/2023 10:52:00 AM (Electronically Signed)
== END 2023-11-04 13:35 | disposition home or self-care (01) ==
LOC: MAMMO 13:34
PROVIDERS: PCP Nurse Practitioner Family; Visit Provider Nurse Practitioner Family
DX: Z12.31 Encounter for screening mammogram for malignant neoplasm of breast (principal)
CPT/HCPCS: 77063; 77067

== ENCOUNTER 2024-07-20 13:12 | Outpatient (CLI) | payer OTHER, SELFPAY ==
--- OUTSIDE RECORDS SUMMARY | 2024-07-20 13:16 | XMS_ITS | Encounter Summary ---
Author Organization [facility] Address [address] [place], [place] [id number] Phone [email or web address] Care Team Providers Care Services Rep Name Role Phone Unavailable Primary Care Provider Unavailabl e Encounter Details Date Type Department Care Team (Late st Contact Info) Description 06/21/2024 Claims Summary [facility] [address] [place] [phone] Provider, Claims Summary ExternalMD [address] [place] [address] Social History Tobacco Use Types Packs/Day Years [...]
--- OUTSIDE RECORDS SUMMARY | 2024-07-20 13:16 | XMS_ITS | Clinical Summary ---
Author Organization [email or web address] Address [place], [place] [address] Care Team Providers Care Fire Lieutenant Name Role Phone Pcp, No Primary Care [...] mg tablet Take 10 mg by mouth. 11/25/2019 Acti ve chlorthalidone (HYGROTON) 50 mg tablet Take 50 mg by mouth. 11/25/2019 Acti ve cholecalciferol (VITAMIN D3) 2,000 unit capsule Take 1 Cap by mouth. 2015 Ac tive glipiZIDE (GLUCOTROL) 10 mg tablet Take 10 mg by mouth. 07/11/2016 Acti ve Insulin Admin Supplies inpn 02/12/2015 Active Insulin Admin Supplies (INPEN, FOR NOVOLOG OR FIASP,) inpn 02/12/2015 Active insulin aspart U-100 (NOVOLOG FLEXPEN U-100 INSULIN) 100 unit/mL (3 mL) solution for injection Inject 5 units subcutaneously with lunch and dinner 11/25/2019 Active insulin glargine (LANTUS) 100 unit/mL injection Inject 38 Units subcutaneous. 07/14/2019 Active insulin glargine (LANTUS SOLOSTAR PEN; BASAGLAR KWIKPEN) 100 unit/mL (3 mL) pen 40 units at bedtime 04/14/2015 Active loratadine (CLARITIN) 5 mg/5 mL liquid if needed Active LORazepam (ATIVAN) 0.5 mg tab Take 0.5 mg by mouth. 03/06/2020 Act nahomy metoprolol succinate (TOPROL XL) 50 mg sustained-release tablet Take 50 mg by mouth. 08/08/2016 Acti ve SITagliptin (JANUVIA) 50 mg tablet Take 50 mg by mouth. 07/11/2016 Acti ve traZODone (DESYREL) 50 mg tablet Take 50 mg by mouth. 11/25/2019 Acti ve Active Problems No known [...] for age 50+ (1 of 2) 12/19/2011 Pap test for age 21-65 06/20/2023 , 06/20/2020, 03/23/2014, Additional history exists COVID-19 vaccine series (2023- season) 2024 07/04/2022, 08/05/2021, 01/09/2021, Additional history exists Influenza for age 50-64 06/11/2024 Pneumococcal series for age 6-64 Aged Out No longer eligible based on patient's age to complete this topic Procedures Procedure Name Priority Date/Time Associated Diagnosis Comments SERVICE CENTER REPRESENTATIVE THIN PREP PAP SCREEN IMAGED Routine 06/20/2020 11:11 AM CDT from Last 3 Months or Most Recently Relevant to Health Maintenance Results * (ABNORMAL) SERVICE CENTER REPRESENTATIVE THIN PREP PAP SCREEN IMAGED (06/20/2020 11:11 AM CDT) Case Report Gynecologic Cytology Report ? Case: [id number] ? Authorizing Provider: ??Karmen Naranjo MD ??Collected: ? 06/20/2020 1111 ? Ordering Location: ? [facility] ?Received: ?06/21/2020 1136 ? First Screen: ?Junior Leija ? Pathologist: ? Gisele Barnes MD ? Specimen: ?SERVICE CENTER REPRESENTATIVE ThinPrep Vial Screening, Cervical/Vagina l ? 07/01/2020 9:27 AM [facility] INTERPRETATION/ RESULT ATYPICAL SQUAMOUS CELLS OF UNDETERMINED SIGNIFICANCE (ASCUS)(A) (none) 07/01/2020 9:27 AM [facility] IMEN ADEQUACY Satisfactory for evaluation Endocervical component present 07/01/2020 9:27 AM [facility] HPV REQUEST HPV if ASCUS 07/01/2020 9:27 AM [facility] Last Pap Date 07/14/2016 07/01/2020 9:27 AM [facility] Menstrual Status 07/01/2020 9:27 AM [facility] Comment:N/A Additional Information 07/01/2020 9:27 AM [facility] Comment: Interpreted at [facility] Laboratory - [address], [place] [address] Automated Review Successful 07/01/2020 9:27 AM [facility] Comment:Specimen processed s uccessfully by automated vba programmer device, ThinPrep Imaging System, [employer] ANCILLARY TESTING SERVICE CENTER REPRESENTATIVE HPV Ordered, Please see separate report 07/01/2020 9:27 AM [facility] Note The pap test is a screening technique, not a diagnostic procedure. It is used primarily to screen for squamous cancers and precursor lesions. Published studies have shown that it is subject to both false negative and false positive results. The pap test should not be used as the sole means to diagnose or exclude pre-malignant and malignant lesions. 07/01/2020 9:27 AM CDT [facility] Other (Cervical/Vagina l) 06/20/2020 11:11 AM CDT 06/21/2020 11:36 AM CDT Karmen Naranjo MD PATHOLOGY/CYTOLO GY [facility] [address] [place] [address], [place] from Last 3 Months or Most Recently Relevant to Health Maintenance Care Teams Fire Lieutenant Relationship Specialty Start Date End Date Pcp, No . PCP - General 03/29/20
--- OUTSIDE RECORDS SUMMARY | 2024-07-20 13:16 | XMS_ITS | Clinical Summary ---
Author Organization [facility] Address [address] [place] [id number] Phone CareEverywhereSuppor [email or web address] Care Team Providers Care Professional Healthcare Representative Name Role Phone Unavailable Primary Care Provider [...] Date Status traZODone (DESYREL) 50 MG tablet 09/06/2023 Active Januvia 50 MG tablet 10/01/2023 Acti ve metoprolol succinate XL (TOPROL-XL) 50 MG 24 hr tablet 10/27/2023 Active HumaLOG KWIKPEN 100 UNIT/ML solution pen-injector 10/01/2023 Active Lantus SoloStar 100 UNIT/ML injection 11/01/2023 Active glipiZIDE (GLUCOTROL) 10 MG tablet 09/06/2023 Active chlorthalidone (HYGROTON) 25 MG tablet 10/06/2023 Active atorvastatin (LIPITOR) 10 MG tablet 10/29/2023 Active amLODIPine (NORVASC) 5 MG tablet 10/27/2023 Active Encounters Date Type Department Care Team Description 06/21/2024 Claims Summary [facility] [address] [place] [address] Provider, Claims Summary MD Miriam 05/10/2024 Claims Summary [facility] [address] [place] [address] Provider, Claims Summary MD Miriam from Last 3 Months Family History Medical [...] 1961 Diabetic Comprehensive Foot Exam 12/19/1971 Diabetic Kidney Health Eval (eGFR & Alb/CR ratio urine) 12/19/1971 Diabetic Urine Microalbumin 12/19/1971 Hemoglobin A1C Testing 12/19/1971 Cervical Cancer Screening 1977 Annual Preventive Exam 12/19/1979 Hep B Infection Screening - Surface Antigen 12/19/1979 Breast Cancer Screening 12/19/1991 Colorectal Cancer Screening 12/19/1991 Covid-19 Immunization ( season) 2024 07/04/2022, 08/05/2021, 01/09/2021, Additional history exists Influenza Immunization (#1) 06/11/202407/13, 08/30/2020, 08/06/2020, Additional history exists Tetanus (Tdap or Td) Immunization 08/12/2025 08/12/2015, 07/14/2005 Diabetic Retinal Eye Exam 11/03/2025 11/03/2023 Pneumococcal: Ped (0 to 5 Yrs) and At-Risk Member (6 to 64 Yrs) Aged Out 02/08/2018, 10/06/2016 No longer eligibl e based on patient's age to complete this topic Zoster Immunization Completed 11/12/2020, HIB Immunization Aged Out No longer e [...]
--- OUTSIDE RECORDS SUMMARY | 2024-07-20 13:16 | XMS_ITS | Encounter Summary ---
Author Organization [facility] Address [address] [place], [place] [phone] Phone CareEverywhereSuppor [email or web address] Care Team Providers Care Marketing Director Assisted Living Name Role Phone Unavailable Primary Care Provider Unavailabl e Encounter Details Date Type Department Care Team (Late st Contact Info) Description 05/10/2024 Claims Summary [facility] [address] [place] [address] Provider, Claims Summary ExternalMD [address] [place] [id number] Social History Tobacco Use Types Packs/Day [...]
== END 2024-07-20 13:13 | disposition home or self-care (01) ==
LOC: KYNREF 13:14
PROVIDERS: PCP Nurse Practitioner Family; Visit Provider Nurse Practitioner Family
DX: M79.675 Pain in left toe(s) (principal)
CPT/HCPCS: 84550

== ENCOUNTER 2024-07-31 11:50 | Outpatient (CLI) | payer OTHER, SELFPAY ==
--- OUTSIDE RECORDS SUMMARY | 2024-07-31 11:54 | XMS_ITS | Encounter Summary ---
Author Organization [facility] Address [address] [place], [place] [phone] Phone CareEverywhereSuppor [email or web address] Care Team Providers Care Supervisor Tree Trimming Name Role Phone Unavailable Primary Care Provider Unavailabl e Encounter Details Date Type Department Care Team (Late st Contact Info) Description 05/10/2024 Claims Summary [facility] [address] [place] [address] Provider, Claims Summary ExternalMD [address] [place] [address] Social History Tobacco Use Types Packs/Day [...]
--- OUTSIDE RECORDS SUMMARY | 2024-07-31 11:54 | XMS_ITS | Clinical Summary ---
Author Organization [facility] Address [address] [place] [phone] Phone CareEverywhereSuppor [email or web address] Care Team Providers Care Bankruptcy Judge Name Role Phone Unavailable Primary Care Provider [...] Encounters Date Type Department Care Team Description 07/20/2024 Claims Summary [facility] [address] [facility] [place] [address] Provider, Claims Summary MD Miriam 06/21/2024 Claims Summary [facility] [address] [facility] [place] [address] Provider, Claims Summary ExternalMD 05/10/2024 Claims Summary [facility] [address] [facility] [place] [address] Provider, Claims Summary MD Miriam from Last [...]
--- OUTSIDE RECORDS SUMMARY | 2024-07-31 11:54 | XMS_ITS | Encounter Summary ---
Author Organization [facility] Address [address] [place], [place] [phone] Phone CareEverywhereSuppor [email or web address] Care Team Providers Care Ticket Sales Supervisor Name Role Phone Unavailable Primary Care Provider Unavailabl e Encounter Details Date Type Department Care Team (Late st Contact Info) Description 07/20/2024 Claims Summary [facility] [address] [place] [address] Provider, Claims Summary MD Miriam [address] [place] [address] Social History Tobacco Use Types Packs/Day [...]
--- OUTSIDE RECORDS SUMMARY | 2024-07-31 11:54 | XMS_ITS | Encounter Summary ---
Author Organization [facility] Address [address] [place], [place] [phone] Phone CareEverywhereSuppor [email or web address] Care Team Providers Care Dental Practice Manager Name Role Phone Unavailable Primary Care Provider Unavailabl e Encounter Details Date Type Department Care Team (Late st Contact Info) Description 06/21/2024 Claims Summary [facility] [address] [place] [address] Provider, Claims Summary ExternalMD [address] [place] [address] Social History Tobacco Use Types Packs/Day [...]
[2024-07-31 14:15] LABS: Strep A DNA Probe* NOT DETECTED (Not Detectd)
[2024-07-31 14:29] LABS: PCR FLU A Negative PCR FLU A (Negative); PCR FLU B Negative PCR FLU B (Negative); PCR RSV Negative PCR RSV (Negative); SARS PCR* Negative SARS-CoV-2 (Negative)
== END 2024-07-31 11:51 | disposition home or self-care (01) ==
PROVIDERS: PCP Nurse Practitioner Family; Visit Provider Nurse Practitioner Family
DX: J11.1 Influenza due to unidentified influenza virus with other respiratory manifestations (principal)
CPT/HCPCS: 87631; 87651

== ENCOUNTER 2024-08-17 09:13 | Outpatient (CLI) | payer OTHER, SELFPAY | END 2024-08-17 09:14 | disposition home or self-care (01) | PROVIDERS: PCP Nurse Practitioner Family; Visit Provider Nurse Practitioner Family | DX: E11.3293 Type 2 diabetes mellitus with mild nonproliferative diabetic retinopathy without macular edema, bilateral (principal); E78.5 Hyperlipidemia, unspecified; I10 Essential (primary) hypertension; Z79.4 Long term (current) use of insulin; Z13.29 Encounter for screening for other suspected endocrine disorder; Z13.21 Encounter for screening for nutritional disorder | CPT/HCPCS: 80053; 80061; 82043; 82570; 82607; 84443; 85025 ==

== ENCOUNTER 2025-05-04 13:08 | Outpatient (CLI) | payer OTHER, SELFPAY ==
--- NOTE | 2025-05-04 13:20 | CRLHL7_ITS ---
For Patients: As a result of the Century Cures Act, medical imaging exams and procedure reports are released immediately into your electronic medical record. You may view this report before your referring provider. If you have questions, please contact your health care provider. INDICATION: BILATERAL SCREENING MAMMOGRAM, ASYMPTOMATIC 64 Y/O FEMALE COMPARISON: 11/04/2023, 10/29/2022, 04/05/2020 TECHNIQUE: Digital mammogram in CC and MLO projections including computer-aided detection (CAD) and tomosynthesis. BREAST COMPOSITION: There are scattered areas of fibroglandular density. FINDINGS: No suspicious findings. ASSESSMENT: BI-RADS 1 Negative RECOMMENDATION: Annual screening mammogram. A lay language report of this examination will be provided to the patient. Dictated by: Jaqui Patrick MD @ 05/07/2025 21:26:58 (Electronically Signed)
== END 2025-05-04 13:09 | disposition home or self-care (01) ==
LOC: MAMMO 13:09
PROVIDERS: PCP Nurse Practitioner Family; Visit Provider Nurse Practitioner Family
DX: Z12.31 Encounter for screening mammogram for malignant neoplasm of breast (principal)
CPT/HCPCS: 77063; 77067

== ENCOUNTER 2025-08-31 11:03 | Outpatient (CLI) | payer OTHER, SELFPAY | END 2025-08-31 11:04 | disposition home or self-care (01) | PROVIDERS: PCP Nurse Practitioner Family; Visit Provider Nurse Practitioner Family | DX: E11.319 Type 2 diabetes mellitus with unspecified diabetic retinopathy without macular edema (principal); Z79.4 Long term (current) use of insulin; Z13.0 Encounter for screening for diseases of the blood and blood-forming organs and certain disorders involving the immune mechanism | CPT/HCPCS: 80053; 80061; 82043; 82570; 82607; 84443; 85025 ==